=== PATIENT | female | born 1980 | race Two or more races ===

== ENCOUNTER 2024-03-31 23:00 | Inpatient (IN) | payer MEDICAID, SELFPAY ==
[2024-03-31 23:08] VITALS: BP 173/90; PULSE 113; RESP 20; TEMP 37.8; O2SAT 95
[2024-03-31 23:10] VITALS: BMI 34.9
--- NOTE | 2024-03-31 23:13 | XR_ITS ---
Examination: AP chest single view Technique one AP portable upright chest single view Exam date and time: March 31, 2024 11:27 PM Comparison November 02, 2023 Indications: Sepsis protocol Findings: Bibasilar pneumonia Normal heart size Mild vascular congestion Osseous structures intact Impression: Bibasilar pneumonia
--- NOTE | 2024-03-31 23:13 | EDNOTE_ITS ---
ED SOB =RME/HPI General Chief Complaint: Fever Stated Complaint: FEVER/FLU/COLD SYMPTOMS Time Seen by Provider: 03/31/24 23:06 Arrival date/time: 03/31/24 23:00 RME / HPI RME / HPI Narrative: Dr. [facility] Main ED Evaluation: 43yo female with pmhx DM, HTN, asthma BIBA from home presents to the ED for a chief complaint of shortness of breath. Patient states her nephews have been sick at home with the Flu. She states today, she developed significant shortness of breath and felt like she couldn't get enough air in , so she came in for evaluation. She reports associated productive cough with green phlegm, N/V/D, and generalized weakness. She denies any dizziness, lightheadedness or any other associated symptoms. Related Data Home Medications ?Medication ?Instructions ?Recorded ?Confirmed amlodipine 2.5 mg tablet 2.5 mg PO QDAY 08/25/23 08/25/23 sertraline 50 mg tablet 50 mg PO QDAY 08/25/23 08/25/23 Previous Rx's ?Medication ?Instructions ?Recorded famotidine 40 mg tablet (Pepcid) 40 mg PO QDAY #30 tabs 04/07/22 hydrocodone 5 mg-acetaminophen 325 1 tab PO Q8H PRN pain #10 tabs 07/12/22 mg tablet cyclobenzaprine 10 mg tablet 10 mg PO HS PRN muscle spasm #10 10/16/22 tabs albuterol sulfate 90 mcg/actuation 2 puff inhalation Q4H PRN 05/13/23 aerosol inhaler shortness of breath or wheezing #18 grams nebulizer and compressor #1 ea 05/13/23 insulin glargine 100 unit/mL (3 36 unit (0.36 mL) subcut QDAY #15 08/27/23 mL) subcutaneous pen (Basaglar mL KwikPen U-100 Insulin) cephalexin 250 mg capsule 250 mg PO QDAY #5 caps 12/05/23 Allergies Allergy/AdvReac Type Severity Reaction Status Date / Time amoxicillin [From Augmentin] Allergy Severe Swelling Verified 11/02/23 20:23 of Lip/Tongue/Throat clavulanic acid Allergy Severe Swelling Verified 11/02/23 20:23 [From Augmentin] of Lip/Tongue/Throat Review of Systems Review of Systems Systems Reviewed: All systems reviewed, normal except as documented Past Medical History Past Medical History NEUROLOGIC: Negative Neurological Disorders, Cerebrovascular Accident, Transient Ischemic Attacks (TIA), Dementia, Alzheimer's Disease, Parkinson's Disease, Brain Tumor, Meningitis, Seizures, Epilepsy, Multiple Sclerosis, Cerebral Palsy, Amyotrophic Lateral Sclerosis (ALS/Autumn Gehrig's), Guillain-Labolt Syndrome, Spina Bifida, Paralysis, Peripheral Neuropathy, Espino's Palsy, Subdural Hematoma, Migraine, Head Trauma, Spinal Cord Injury or Traumatic Brain Injury CARDIAC: Positive Hypercholesterolemia, Cellulitis, Hypertension and Hypotension; Negative Cardiac Disorders, Myocardial Infarction, Cardiac Arrhythmia, Atrial Fibrillation, Angina, Heart Murmur, Coronary Artery Disease, Atherosclerotic Heart Disease, Peripheral Vascular Disease, Aneurysm, Congestive Heart Failure, Congenital Heart Disease, Valvular Heart Disease, Rheumatic Fever, Cardiomyopathy, Edema, Pericarditis, Deep Vein Thrombosis or Varicose Veins RESPIRATORY: Positive Asthma and Pneumonia; Negative Chronic Obstructive Pulmonary Disease (COPD), Bronchitis, Emphysema, Pulmonary Fibrosis, Cystic Fibrosis, Tuberculosis, Pulmonary Embolism, Pulmonary Edema or Sleep Apnea GASTROINTESTINAL: Negative Gastrointestinal Disorders, Hepatitis, Cirrhosis, Pancreatitis, Celiac Disease, Gall Bladder Disease, Gastrointestinal Bleed, Esophageal Varices, Gastelum's Esophagus, Colitis, Ulcerative Colitis, Diverticulitis, Diverticulosis, Ulcer, Colorectal Cancer, Irritable Bowel, Crohn's Disease, Obstructive Bowel, Hiatal Hernia, Hemorrhoids, Gastroesophageal Reflux Disease or Obesity GENITOURINARY: Negative Genitourinary Disorders, Renal Disease, Kidney Stones, Polycystic Kidney Disease, Neurogenic Bladder, Inguinal Hernia, Dialysis or Prostate Cancer REPRODUCTIVE: Negative Breast Cancer, Endometriosis, Genital Herpes, Gonorrhea, Pelvic Inflammatory Disease, Previous Pregnancies, Syphilis, Testicular Cancer or Uterine Prolapse MUSCULOSKELETAL: Positive Osteomyelitis; Negative Musculoskeletal Disorders, Muscular Dystrophy, Myasthenia Gravis, Marfan's Syndrome, Bone Cancer, Arthritis, Rheumatoid Arthritis, Osteoporosis, Degenerative Disk Disease, Gout, Scoliosis, Carpal Tunnel Syndrome, Fibromyalgia, Fractures, Degenerative Joint Disease or Poliovirus ENT: Positive Blind; Negative Cataracts, Glaucoma, Retinal Detachment, Macular Degeneration, Ear Infection, Deafness, Head Trauma or Eye Prosthesis ENDOCRINE: Positive Endocrine Disorders, Diabetes Mellitus Type 2 and Hypoglycemia; Negative Diabetes Mellitus Type 1, Alecia's Syndrome, Reginald's Disease, Hyperthyroidism, Hypothyroidism, Parathyroid Disease, Pituitary Disease, Systemic Lupus Erythematosus, Syndrome of Inappropriate Antidiuretic Hormone (SIADH), Adrenal Disease or Graves' Disease HEMATOLOGIC: Positive Anemia; Negative Blood Disorders, Leukemia, Hemophilia, Thalassemia, Sickle Cell Disease or Clotting Problems PSYCHO/SOCIAL: Negative Psychiatric Problems, Schizophrenia, Recreational Drug Use, Bipolar Disorder, Depression, Anxiety, Behavior Problems, Self-Mutilation, Attention Deficit Disorder, Attention Deficit Hyperactivity Disorder, Depression, Post Traumatic Stress Disorder or Eating Disorder OTHER HISTORY: Positive Hospitalization, Blood Transfusions and Chicken Pox; Negative Autoimmune Disease, Down Syndrome, Autism, Developmental Delay, Shingles, Falls, Blood Transfusion Reaction, Anesthesia Reactions, Organ Transplant, Chemotherapy, Radiation Therapy, Hyperbaric Therapy, MRSA, VRSA, Vancomycin-Resistant Enterococci, Human Immunodeficiency Virus (HIV), Measles, Mumps, Rubella (Cymraes Measles), Pertussis, Clostridium Difficile, Cancer, Breast Cancer, Cervical Cancer, Colorectal Cancer, Lung Cancer, Ovarian Cancer, Prostate Cancer or Testicular Cancer Family History FAMILY HISTORY: Positive Family Respiratory Disorders and Family Cardiac Disorders; Negative Family Psychiatric Problems, Family Gastrointestinal Problems, Family Cancer, Family Surgery or Family Anesthesia Reaction Surgical History SURGICAL: Positive Abdominal Surgery and Amputation; Negative Cardiac Surgery, Open Heart Surgery, Coronary Artery Bypass Graft, Vascular Surgery, Coronary Stent, Cardiac Catheterization, Pacemaker, Angiogram, Auto Implanted Cardiovert Defib, Carotid Endarterectomy, Endocrine Surgery, Thyroidectomy, Ear Surgery, Tympanostomy Tube, Eye Surgery, Nose Surgery, Oral Surgery, Tonsillectomy, Adenoidectomy, Cochlear Implant, Corneal Transplant, Throat Surgery, Tracheostomy, Gastric Bypass Surgery, Gastrostomy, Bowel Surgery, Nephrectomy, Transurethral Resection, Joint Replacement, Open Reduction Internal Fixation, Arthroscopy, Neurologic Surgery, Brain Shunt, Mastectomy, Lumpectomy, Hysterectomy, Tubal Ligation, Section, Vasectomy or Organ Transplant Social History SMOKING STATUS: Never smoker SECOND HAND EXPOSURE: No SUBSTANCE USE: does not use ED Exam Narrative Physical exam: GENERAL APPEARANCE: alert and oriented x 4, well-developed, well-nourished, mild respiratory distress VITALS: All vitals were reviewed and the pulse ox is 95% on room air, which is normal according to my interpretation. HEENT: Normocephalic, atraumatic; pupils equal, round, reactive to light; EOMI; mucous membranes pink, moist; oropharynx clear NECK: Supple LUNGS: Mild scattered wheezes bilaterally, + rales, + rhonchi HEART: Tachycardic, regular rhythm; normal S1, S2; no murmurs ABDOMEN: non distended; normal BS; soft, no tenderness, no guarding, no rebound; no masses, no organomegaly, no hernia BACK: no CVA tenderness EXTREMITIES: atraumatic; no edema NEUROLOGIC: awake; alert and oriented x4; cranial nerves II-XII grossly intact; no focal sensory or motor deficits PSYCHIATRIC: appropriate mood and affect SKIN: warm, dry, normal color; no rashes Course Course Course Narrative: 2313: Sepsis alert initiated. Orders made at this time are congruent with ED Adult Sepsis Order List. Re-evaluation is to be completed. 0015: On re-evaluation, patient is no longer in respiratory distress, but still has rales and rhonchi at the bilateral bases. 0043: NS IVF infused. 0113: Sepsis reassessment performed consisting of lab review, vitals, physical exam including auscultation of heart, lungs, and visual evaluation of capillary refills, mucosal membranes and extremities. 0130: Patient no longer has rales or rhonchi. Quality Measures Current suspected stage: ruled out Possible source: pulmonary Blood cultures ordered: yes Antibiotic ordered: Yes Pertinent labs: 03/31/24 23:25 Lactic Acid 1.1 mMol/L (0.4-2.0) Procalcitonin 0.25 ng/ml (0.0-0.49) sepsis Orders Category Date Time Status Bedside COVID-19 Antigen Test NOW Care 03/31/24 23:16 Active Bedside Influenza A&B Antigen Test NOW Care 03/31/24 23:16 Completed Senior Procurement Manager STAT Care 03/31/24 23:13 Active Continuous Pulse Oximetry STAT Care 03/31/24 23:13 Active EKG (ED ONLY) *Do not use* NOW Care 03/31/24 23:13 Completed In and Out Catheter X1PRN Care 03/31/24 23:13 Active Insert IV NOW Care 03/31/24 23:13 Active NPO STAT Care 03/31/24 23:13 Active Strict Intake and Output Routine Care 03/31/24 23:13 Ordered EKG (ED Only) Stat Exams 03/31/24 23:13 Ordered XR chest 1V portable Stat Exams 03/31/24 23:13 Completed Arterial Blood Gas Stat Lab 03/31/24 23:41 Completed B-Type Natriuretic Peptide Stat Lab 03/31/24 23:25 Completed Blood Culture (Lab) Stat Lab 03/31/24 23:27 Received CBC Stat Lab 03/31/24 23:25 Completed Comprehensive Metabolic Panel Stat Lab 03/31/24 23:25 Results LDH (Lactate Dehydrogenase) Stat Lab 03/31/24 23:25 Results Lactate (Lactic Acid) Stat Lab 03/31/24 23:25 Completed Lipase Stat Lab 03/31/24 23:25 Results Magnesium Stat Lab 03/31/24 23:25 Results Partial Thromboplastin Time Stat Lab 03/31/24 23:25 Completed Phosphorous Stat Lab 03/31/24 23:25 Results Procalcitonin Stat Lab 03/31/24 23:25 Results Prothrombin Time with INR Stat Lab 03/31/24 23:25 Completed RSV [Respiratory Syncytial Virus Ag] Stat Lab 03/31/24 23:25 Completed Troponin I Stat Lab 03/31/24 23:25 Results Troponin I Stat Lab 04/01/24 01:32 Ordered Urinalysis Stat Lab 04/01/24 01:08 Received Urine Culture Stat Lab 04/01/24 01:08 Received Albuterol/Ipratr Rt Maggie [Duoneb Rt Maggie] Med 03/31/24 23:13 Discontinued 3 ml INH X1 ONE Azithromycin Inj [Zithromax Inj] 500 mg Med 03/31/24 23:15 Discontinued Sodium Chloride 0.9% 250 ml [Ns] 250 ml IV X1 Magnesium Sulfate 1 gm Ivpb [Magnesium Sulfate Ivpb] Med 04/01/24 01:32 Active 1 gm in 100 ml IV X1 MethylPREDNISolone.* [SoluMEDROL Inj] Med 03/31/24 23:13 Discontinued 125 mg IVP X1 ONE Sodium Chloride 0.9% 1000 ml [Ns] 1,434 ml Med 03/31/24 23:13 Discontinued IV 1,434 mls/hr Sodium Chloride 0.9% 250 ml [Ns] 250 ml Med 03/31/24 23:25 Discontinued IV .STK-MED cefTRIAXone/D5w 1gm IV premix [Rocephin/D5w 1gm IV Med 03/31/24 23:15 Discontinued premix] 50 ml IV X1 Oxygen Delivery NOW RT 03/31/24 23:13 Active Vital Signs Vital signs: Vital Signs Temperature 100.0 F 03/31/24 23:08 Pulse Rate 113 H 03/31/24 23:08 Respiratory Rate 20 03/31/24 23:08 Blood Pressure 173/90 H 03/31/24 23:08 Pulse Oximetry (%) 95 03/31/24 23:08 Oxygen Delivery Method Room Air 03/31/24 23:08 Shortness of Breath / Dyspnea Patient data External records reviewed:: [facility] previous records (Per chart review, patient was seen here on 12/05/23 for hyperglycemia, but left AMA.) Clinical information provided by:: patient Social determinants that could affect healthcare access:: none Patient has the following chronic illnesses:: DM, HTN, asthma How is presenting disease/condition affected by chronic disease/condition?: exacerbated by Evaluation data The following diagnostics were reviewed and interpreted by me:: lab results, radiology exam(s) and EKG tracing(s) Lab and/or radiology exams considered but not ordered:: none Interpretation Summary: WBC count is elevated at 18.3, Sodium is slightly low at 132, Creatinine is elevated at 6.1, eGFR is low at 8, Lactic Acid is normal, Procalcitonin is normal, troponin is negative, according to my interpretation. CXR is negative for rib fractures, normal cardiac silhouette, sharp diaphragmatic edge, but shows bilateral patchy lower lobe infiltrates, according to my interpretation. EKG done at 0040, sinus tachycardia, rate of 109, normal axis, no ectopy, no acute ischemia, according to my interpretation. Medications / Prescriptions Medications or Prescriptions considered but not ordered:: none Medication administrations:: Medication Administration History Magnesium Sulfate/Dextrose (Magnesium Sulfate Ivpb) 1 gm in 100 mls @ 100 mls/hr IV X1 ONE Stop: 04/01/24 02:31 Discontinued Medications Albuterol/Ipratropium (Albuterol/Ipratropium (Duoneb) Rt Maggie 3 Ml Nebu) 3 ml INH X1 ONE Stop: 03/31/24 23:14 Last Admin: 03/31/24 23:30 Dose: 3 ml Documented By: MARCELA Sodium Chloride (Ns) 1,434 mls @ 1,434 mls/hr 30 ml/kg infuse over 60 min (1434 ml) IV .Q1H ONE Stop: 04/01/24 00:12 Last Infusion: 04/01/24 00:43 Dose: Infused Documented By: Admin: 03/31/24 23:34 Dose: 1,434 mls/hr Documented By: TC Ceftriaxone Sodium/Dextrose (Rocephin/D5w 1gm Iv Premix) 50 mls @ 100 mls/hr IV X1 ONE Stop: 03/31/24 23:44 Last Infusion: 04/01/24 00:41 Dose: Infused Documented By: Admin: 03/31/24 23:37 Dose: 100 mls/hr Documented By: JACY Azithromycin 500 mg/ Sodium (Chloride) 250 mls @ 250 mls/hr IV X1 ONE Stop: 04/01/24 00:14 Last Infusion: 04/01/24 00:41 Dose: Infused Documented By: Admin: 03/31/24 23:30 Dose: 250 mls/hr Documented By: JACY Sodium Chloride (Ns) Confirm Administered Dose 250 mls @ ud IV .STK-MED ONE Stop: 03/31/24 23:26 Last Admin: 03/31/24 23:44 Dose: Not Given Documented By: JACY Non-Admin Reason: Duplicate Medication on eMAR Methylprednisolone Sodium Succinate (Methylprednisolone Sod Succ 62.5 Mg/Ml 2ml Vial) 125 mg IVP X1 ONE Stop: 03/31/24 23:14 Last Admin: 03/31/24 23:37 Dose: 125 mg Documented By: JACY see above Consultations Consultation(s) initiated? (list below): Yes Consultation #1 (Physician, Specialty, Details): Discussed case with [Dr. Cheney, attending Dr. San] from Hospitalist service regarding admission. Discussed patients ED course, exam findings, labs, and radiology results. The Hospitalist [agrees] to accept the patient for admission. Time: 01:37 Diagnosis Shortness of Breath Differential Diagnosis: community acquired pneumonia, asthma with exacerbation, pulmonary embolism and other (sepsis, COVID, Influenza, URI, dehydration, electrolyte abnormality) Most likely diagnosis given after review of the tests above:: see below Admission Indicated Admission indicated?: indicated Admission Request Was there a request for admission?: Yes Admission Attestation Admission request attestation: Discussed case with [] from Hospitalist service regarding admission. Discussed patients ED course, exam findings, labs, and radiology results. The Hospitalist [agrees,declines] to accept the patient for admission. Disposition Plan Disposition Plan: Admit Critical Care Time Critical Care Time Critical Care Time: Yes Total Critical Care Time (min.): 45 Attestation: The high probability of sudden, clinically significant deterioration in the patient?s condition required the highest level of my preparedness to intervene urgently. The services I provided to this patient were to treat and/or prevent clinically significant deterioration. Services included the following: chart data review, reviewing nursing notes and/or old charts, documentation time, healthcare risk control consultant collaboration regarding findings and treatment options, medication orders and management, direct patient care, vital sign assessments and ordering, interpreting and reviewing diagnostic studies and lab tests. Aggregate critical care time includes only time during which I was engaged in work directly related to the patient?s care, as described above, whether at bedside or elsewhere in the Emergency Department. It did not include time spent performing other reported procedures or the services of residents, students, nurses or physician assistants. Discharge Plan Plan Patient Disposition: Admit Acute Care w/in Hospital Prescriptions/Referrals Prescriptions/Med Rec: No Action famotidine [Pepcid] 40 mg tablet 40 mg PO QDAY Qty: 30 0RF hydrocodone-acetaminophen 5-325 mg tablet 1 tab PO Q8H MDD 10 PRN (Reason: pain) Qty: 10 0RF cyclobenzaprine 10 mg tablet 10 mg PO HS PRN (Reason: muscle spasm) Qty: 10 0RF albuterol sulfate 90 mcg/actuation HFA aerosol inhaler 2 puff inhalation Q4H PRN (Reason: shortness of breath or wheezing) Qty: 18 0RF (DME) nebulizer and compressor Device See Rx Instructions .Route Qty: 1 0RF Rx Instructions: As directed amlodipine 2.5 mg Tablet 2.5 mg PO QDAY sertraline 50 mg Tablet 50 mg PO QDAY insulin glargine [Basaglar KwikPen U-100 Insulin] 100 unit/mL (3 mL) insulin pen 36 unit SUBCUT QDAY Qty: 15 0RF Patient Comments: INJECT 28 UNITS SUBCUTANEOUSLY ONCE A DAY cephalexin 250 mg capsule 250 mg PO QDAY Qty: 5 0RF Problem List Clinical Impression: Sepsis, Pneumonia, Acute renal failure, Hypomagnesemia Patient/Caregiver Discharge Instructions Print Language: Cuban Stand Alone Forms: Hannah Award Info., Patient Portal Info Letter
[2024-03-31 23:16] VITALS: PULSE 109; RESP 19; O2SAT 97
[2024-03-31 23:30] VITALS: BP 179/101; PULSE 104; PULSE 109; PULSE 114; RESP 19; RESP 20; RESP 96; TEMP 37.7; O2SAT 100; O2SAT 94
[2024-03-31] MEDS: AZITHROMYCIN INJ 500 MG in SODIUM CHLORIDE 0.9% 250 ML 250 ML 250 MG IV (23:30)
[2024-03-31] MEDS: ALBUTEROL/IPRATROPIUM (Duoneb) RT SOL 3 ML NEBU INH (23:30)
[2024-03-31] MEDS: SODIUM CHLORIDE 0.9% 1000 ML 1,434 ML 1434 ML IV (23:34)
[2024-03-31] MEDS: MethylPREDNISolone SOD SUCC 62.5 MG/ML 2ML VIAL 125 MG IVP (23:37)
[2024-03-31] MEDS: cefTRIAXone/D5w 1gm IV premix 50 ML IV (23:37)
[2024-03-31 23:38] LABS: Lactate (Lactic Acid) 1.1 mMol/L (0.4-2.0)
[2024-03-31 23:41] LABS: Basophils # (Auto) 0.1 Thou/mm3 (0.0-0.2); Basophils % (Auto) 1 % (0-2.5); Eosinophils # (Auto) 0.3 Thou/mm3 (0.0-0.5); Eosinophils % (Auto) 2 % (0-10); Hematocrit 24.7 % (36.0-46.0); Immature Granulocytes % (Auto) 1 % (0-0); Immature Granulocytes Auto 0.14 Thou/mm3 (0.00-0.00); Lymphocytes # (Auto) 1.3 Thou/mm3 (1.0-4.8); Lymphocytes % (Auto) 7 % (10-50); Mean Corpuscular HGB Conc 32.8 g/dl (31.0-37.0); Mean Corpuscular Hemoglobin 27.9 pg (25.0-35.0); Mean Corpuscular Volume 85 fL (80-100); Monocytes # (Auto) 0.8 Thou/mm3 (0.0-0.8); Monocytes % (Auto) 4 % (0-12); Neutrophils # (Auto) 15.8 Thou/mm3 (1.8-7.7); Neutrophils % (Auto) 86 % (37-80); Nucleated Red Blood Cell % 0 /100 WBC (0); Platelet Count 566 Thou/mm3 (140-440); RDW Standard Deviation 49.2 fL (36.4-46.3); White Blood Count 18.3 Thou/mm3 (3.6-11.0)
[2024-03-31 23:42] LABS: Hemoglobin 8.1 g/dL (12.0-16.0)
[2024-03-31 23:50] LABS: Base Excess -10 (-3-3); HCO3 15 mEq/L (20-26); Inspired O2, VO2 Liters 8 L/min; O2 Saturation 100 % (91-98); PCO2 31 mmHg (32.0-48.0); PO2 171 mmHg (83-108)
[2024-03-31 23:51] LABS: Allen Test Performed/OK; Puncture Site Right Radial
[2024-04-01] VITALS (30 sets, daily range): BP systolic 110–175; BP diastolic 68–104; PULSE 86–106; RESP 12–97; TEMP 36.2–37.6; O2SAT 93–100; BMI 77.0; BMI 34.9
[2024-04-01 00:03] LABS: B-Type Natriuretic Peptide 81 pg/mL (0-100)
[2024-04-01 00:08] LABS: Prothrombin Time 11.2 Seconds (9.0-12.2)
[2024-04-01 00:25] LABS: Alanine Aminotransferase 11 U/L (10-49); Albumin, Serum 4.1 gm/dL (3.5-5.0); Albumin/Globulin Ratio 1.1 (1.2-2.2); Alkaline Phosphatase 104 U/L (46-116); Anion Gap 11 (7-16); Aspartate Amino Transferase 20 U/L (0-34); BUN/Creatinine Ratio 9 Ratio (12-20); Bilirubin,Total 0.3 mg/dL (0.3-1.2); Blood Urea Nitrogen 54 mg/dL (9-23); Calcium 7.7 mg/dL (8.3-10.6); Calcium (Corrected) 7.7 mg/dL (8.5-10.1); Carbon Dioxide 15.4 mMol/L (20.0-31.0); Chloride 106 mMol/L (98-107); Creatinine (Component) 6.1 mg/dL (0.6-1.3); Estimated Creatinine Clearance 11.6 mL/min (>60); Globulin 3.9 gm/dL (2.3-3.5); Glucose 161 mg/dL (74-106); Lipase 59 U/L (12-53); Magnesium 1.4 mg/dL (1.6-2.6); Osmolality,Calculated 282 (275-295); Phosphorous 7.2 mg/dL (2.4-5.1); Potassium 4.8 mMol/L (3.4-5.1); Procalcitonin 0.25 ng/ml (0.0-0.49); Sodium 132 mMol/L (136-145); Troponin I 0.027 ng/mL (0.0-0.045); eGFR 8 See Note
[2024-04-01 00:30] LABS: Respiratory Syncytial Virus Ag Negative (Negative)
[2024-04-01 01:39] LABS: Collection Type, Urine Clean Catch
[2024-04-01 01:52] LABS: Bilirubin,Urine Negative (Negative); Blood,Urine 1+ (Negative); Clarity,Urine Clear (Clear/Hazy); Color,Urine Colorless (Lt Yel-Yel); Glucose, Urine 3+ (Negative); Ketones,Urine Negative (Negative); Leukocyte Esterase,Urine Negative (Negative); Nitrite,Urine Negative (Negative); Protein,Urine 3+ (Neg - Trace); RBC,Urine 2 /hpf (0-3); Specific Gravity,Urine 1.013 (1.001-1.035); Squamous Epithelial Cell,Urine < 1 /hpf (0-5); Urobilinogen,Urine Negative mg/dL (0.0-1.0); WBC,Urine 5 /hpf (0-5)
[2024-04-01] MEDS: Magnesium Sulfate 1 gm Ivpb 1 GM/100 ML BAG IV (01:57)
[2024-04-01 02:17] LABS: LDH (Lactate Dehydrogenase) 422 U/L (120-246)
[2024-04-01 02:21] LABS: Troponin I 0.028 ng/mL (0.0-0.045)
--- NOTE | 2024-04-01 02:27 | ESHP_ITS ---
Documentation for date of: 04/01/24 HPI History of Present Illness History of present illness: 43-year-old female with past medical history of hypertension, uncontrolled insulin-dependent diabetes, status post left AKA, chronic right lower extremity wound ulcer CKD stage V, history of asthma presented to ED with chief complaints of shortness of breath. Per patient her 2 nephews have been sick at home with flu. She stated that today she developed significant shortness of breath, generalized weakness, body ache, productive cough with greenish phlegm, had nausea vomiting and diarrhea leading her to present to ED for further workup. Patient denies any chest pain, palpitation, headache, or any other associated symptoms. The patient was seen in the ED in February with NOEMY on CKD (creatinine 5), but declined hospitalization and left against medical advice. Today on presentation, the patient is hypertensive with a blood pressure of 173/90, tachycardic with a heart rate of 113. Laboratory findings show leukocytosis with a WBC count of 18.3, anemia (hemoglobin 8.1, hematocrit 24.7), and thrombocytosis (platelet count of 566). The CMP reveals significant renal dysfunction, with a bicarbonate level of 15.3, BUN 54, creatinine 6.1, and an eGFR of 8. Electrolyte imbalances are present, with calcium 7.7, phosphorus 7.2, and magnesium 1.4. LDH is elevated at 422. Procalcitonin and lactic acid levels are negative. Urinalysis shows proteinuria and glucosuria. Chest x-ray findings include bibasilar pneumonia and mild vascular congestion. Patient met SIRS criteria tachycardic, leukocytosis with a source of infection and will be admitted for sepsis secondary to pneumonia, acute hypoxic respiratory failure secondary due to asthma exacerbation in the setting of pneumonia as well as CKD stage V progressing to ESRD. #Past medical history as above #Past surgical history left AV KA #Allergies amoxicillin, Augmentin, clavulanic acid #Medication patient states that she is taking 40 units of Lantus daily along with insulin sliding scale, amlodipine 2.5, the rest of the med rec still pending #Social history patient denies alcohol use, but stated that she is smoking methamphetamine, last time was couple days ago. Exam Vital Signs Temp Pulse Resp BP Pulse Ox O2 Del Method O2 Flow Rate 99.7 F 104 H 25 H 135/84 H 96 Nasal Cannula 2 04/01/24 01:42 04/01/24 02:01 04/01/24 02:01 04/01/24 02:01 04/01/24 02:01 04/01/24 02:01 04/01/24 02:01 Narrative Exam GENERAL: no acute distress, AAO x3, well nourished. HEENT: Head AT/ NC. Mucous membranes moist. NECK: Supple, no lymphadenopathy, no carotid bruits. CARDIOVASCULAR: tachicardic,Normal S1/S2, No m/r/g. RESPIRATORY: mild wheezing, No rhonchi or crackles. GASTROINTESTINAL: Abdomen soft, non tender no palpable masses. Bowel sounds present in all 4 quadrants. MUSCULOSKELETAL:?Left lower extremity status post AKA, right lower extremity status post toe amputation well-healed, wound on ball of foot with scant drainage. Trace right lower extremity edema. NEUROLOGICAL: Alert and oriented x3, equal strength upper extremities. PSYCHIATRIC: not agitated, normal mood and affect. Results: Labs 04/01/24 15:50 04/01/24 04:15 Labs: Short CBC 03/31/24 Range/Units 23:25 WBC 18.3 H (3.6-11.0) Thou/mm3 Hgb 8.1 L (12.0-16.0) g/dL Hct 24.7 L (36.0-46.0) % Plt Count 566 H (140-440) Thou/mm3 BMP 03/31/24 23:25 Sodium 132 L Potassium 4.8 Chloride 106 Carbon Dioxide 15.4 L BUN 54 H Creatinine 6.1 H* Glucose 161 H Calcium 7.7 L Cardiac Enzymes 03/31/24 04/01/24 Range/Units 23:25 01:53 Troponin I 0.027 0.028 (0.0-0.045) ng/mL Liver Function 03/31/24 Range/Units 23:25 Total Bilirubin 0.3 (0.3-1.2) mg/dL AST 20 (0-34) U/L ALT 11 (10-49) U/L Alkaline Phosphatase 104 (46-116) U/L Albumin 4.1 (3.5-5.0) gm/dL Urine 04/01/24 Range/Units 01:08 Urine Color Colorless A (Lt Yel-Yel) Urine Clarity Clear (Clear/Hazy) Urine pH 7.0 (5.0-7.0) Ur Specific [place] 1.013 (1.001-1.035) Urine Protein 3+ A (Neg - Trace) Urine Glucose (UA) 3+ A (Negative) ABG Interpretation ABG results: 03/31/24 23:41 ABG pH 7.30 L ABG pCO2 31 L ABG pO2 171 H ABG HCO3 15 L ABG O2 Saturation 100 H ABG Base Excess -10 L Quality Measures Quality Measures sepsis Current suspected stage: sepsis Possible source: pulmonary Blood cultures ordered: yes Antibiotic ordered: Yes Medications Home Medications and Allergies Home Medications ?Medication ?Instructions ?Recorded ?Confirmed ?Type amlodipine 2.5 mg tablet 2.5 mg PO QDAY 08/25/23 08/25/23 History sertraline 50 mg tablet 50 mg PO QDAY 08/25/23 08/25/23 History Allergies Allergy/AdvReac Type Severity Reaction Status Date / Time amoxicillin [From Augmentin] Allergy Severe Swelling Verified 11/02/23 20:23 of Lip/Tongue/Throat clavulanic acid Allergy Severe Swelling Verified 11/02/23 20:23 [From Augmentin] of Lip/Tongue/Throat Visit Medications Acetaminophen (Acetaminophen 325 Mg Tablet) 650 mg PO Q6H PRN PRN Reason: PAIN OR FEVER > 101 Stop: 05/01/24 02:10 Albuterol/Ipratropium (Albuterol/Ipratropium (Duoneb) Rt Maggie 3 Ml Nebu) 3 ml INH Q4HRRT NASREEN Stop: 05/01/24 02:59 Amlodipine Besylate (Amlodipine Besylate 2.5 Mg Tablet) 2.5 mg PO QDAY NASREEN Stop: 05/01/24 08:59 Dextrose (Dextrose 50%-Water Inj 50 Ml Syringe) 25 ml IV Q15MIN PRN PRN Reason: BG 50-70 responsive npo pt Stop: 05/01/24 02:15 Dextrose (Dextrose 50%-Water Inj 50 Ml Syringe) 50 ml IV Q15MIN PRN PRN Reason: BG <50 OR BG <70 & pt unresponsive Stop: 05/01/24 02:15 Glucagon (Glucagon Inj 1 Mg Vial) 1 mg IM Q15MIN PRN PRN Reason: BG <70, and no IV access Heparin Sodium (Porcine) (Heparin Sod Inj 5000 Unit/Ml Vial) 5,000 unit SC Q8HR NASREEN Stop: 04/15/24 05:59 Magnesium Sulfate/Dextrose (Magnesium Sulfate Ivpb) 1 gm in 100 mls @ 100 mls/hr IV X1 ONE Stop: 04/01/24 02:31 Last Admin: 04/01/24 01:57 Dose: 100 mls/hr Ceftriaxone Sodium/Dextrose (Rocephin/D5w 1gm Iv Premix) 50 mls @ 100 mls/hr IV QDAY [facility] Stop: 04/08/24 08:59 Azithromycin 500 mg/ Sodium (Chloride) 250 mls @ 250 mls/hr IV QDAY [facility] Stop: 04/08/24 08:59 Insulin Glargine (Insulin Glargine (Lantus) 5 Unit/0.05 Ml (Per 5 Units)) 30 unit SC QAM [facility] Stop: 05/01/24 08:59 Insulin Human Lispro (Insulin Lispro (Admelog) 1 Unit/0.01 Ml Unit) 0 unit SC ACHS [facility]; Protocol Stop: 05/01/24 07:29 Ondansetron HCl (Ondansetron Inj 2 Mg/Ml Inj 2 Ml) 4 mg IV Q6H PRN; Protocol PRN Reason: NAUSEA OR VOMITING Stop: 05/01/24 02:10 Pantoprazole Sodium (Pantoprazole 40 Mg Tablet) 40 mg PO QDAY [facility] Stop: 05/01/24 08:59 Prednisone (Prednisone 20 Mg Tablet) 40 mg PO QDAY [facility] Stop: 04/08/24 02:23 Sennosides (Senna Tablet) 1 tab PO QDAY [facility]; Protocol Stop: 05/01/24 08:59 Discontinued Medications Albuterol/Ipratropium (Albuterol/Ipratropium (Duoneb) Rt Maggie 3 Ml Nebu) 3 ml INH X1 ONE Stop: 03/31/24 23:14 Last Admin: 03/31/24 23:30 Dose: 3 ml Sodium Chloride (Ns) 1,434 mls @ 1,434 mls/hr 30 ml/kg infuse over 60 min (1434 ml) IV .Q1H ONE Stop: 04/01/24 00:12 Last Infusion: 04/01/24 00:43 Dose: Infused Ceftriaxone Sodium/Dextrose (Rocephin/D5w 1gm Iv Premix) 50 mls @ 100 mls/hr IV X1 ONE Stop: 03/31/24 23:44 Last Infusion: 04/01/24 00:41 Dose: Infused Azithromycin 500 mg/ Sodium (Chloride) 250 mls @ 250 mls/hr IV X1 ONE Stop: 04/01/24 00:14 Last Infusion: 04/01/24 00:41 Dose: Infused Methylprednisolone Sodium Succinate (Methylprednisolone Sod Succ 62.5 Mg/Ml 2ml Vial) 125 mg IVP X1 ONE Stop: 03/31/24 23:14 Last Admin: 03/31/24 23:37 Dose: 125 mg Assessment & Plan Plan 43-year-old female with past medical history of uncontrolled insulin-dependent DM type II, history of hypertension, status post left knee AKA, CKD stage V leading to ESRD was admitted for sepsis secondary due to PNA, acute hypoxic respiratory failure due to asthma exacerbation in the setting of PNA, CKD stage V treatment and management. #Sepsis secondary due to PNA #Acute hypoxic respiratory failure due to asthma exacerbation in the setting of PNA #Asthma exacerbation in the setting of PNA Patient came in with chief complaints of shortness of breath, had recent sick contact with nephew's who are sick with flu, however flu test in ED was negative On presentation patient met 2 out of 4 SIRS criteria, tachycardia and leukocytosis with source of infection PNA Patient endorses generalized body ache, cough, with greenish phlegm production, shortness of breath, patient does not have oxygen at home In ED patient received methylprednisone, DuoNebs treatment, Rocephin with azithromycin, and IVF per sepsis protocol -Admit to telemetry -IVF with antibiotics -Blood culture/urine culture -Continue Rocephin and azithromycin -DuoNeb scheduled -Prednisone 40 mg daily -Monitor signs and symptoms #CKD stage V, progressing to ESRD #NAGMA in the setting of renal failure On presentation patient had patient was acidotic with pH of 7.3, bicarb 15.4, BUN 54, creatinine 6.1, EGFR 8, creatinine clearance 11.6, phosphorus 7.2 Patient is not following any adjunct psychology professor outpatient -Bicarb drip -Nephrology consult -Patient may need initiation of hemodialysis -Stated she makes good amount of urine #Electrolyte disbalance #hyperphosphatemia in the setting of kidney failure #hypocalcemia in a setting of renal failure #Hypomagnesemia -Magnesium was replaced, monitor replace as needed -Sevelamer 800 TID #IDDM type II Home medication long-acting 40 units every morning as well as insulin sliding scale -Lantus 30 units every morning -Insulin sliding scale -Follow-up with A1c -Diabetic education -Patient may require more insulin in the setting of steroid treatment #History of hypertension Currently controlled -Resumed home amlodipine 2.5 #History of right chronic foot ulcer #History of left AKA -Wound care consult -Outpatient volunteer assistant follow-up #abdominal lymphadenopathy CT scan on 12/26 Finding:Abdominal and right pelvic inguinal lymphadenopathy as above, differential would include reactive lymphadenitis versus a lymphoproliferative disorder -Consider PET CT scan follow-up Disposition:tele DVT prophylaxis: heparin GI prophylaxis: PPI Diet: NPO, until nephrology decides if patient need HD , vas cath? Lines: PIV CODE STATUS:DNR Patient care was discussed with attending physician Dr. Mena Man MD PGY-2 I have carefully reviewed this document. Due to imperfections in the voice software, there could be grammatical errors including phonetic/typographic errors. This in no way compromises the medical care the patient is receiving Attending Provider Attestation/Addendum I reviewed labs, imaging, EKG, home medications and prior available records. Face to face evaluation was performed by me. I have personally examined the patient and discussed assessment and plan with the IM team. I reviewed the resident note and agree with the plan with exceptions as below. 43-year-old female with history of CKD stage IV, hypertension, diabetes mellitus complicated by left lower extremity amputation, hyperlipidemia, and asthma, who presented with a chief complaint of shortness of breath and productive cough. She was found to have sepsis secondary to bilateral pneumonia, NOEMY on CKD, and possible asthma exacerbation. Sepsis secondary to bibasilar pneumonia: Start ceftriaxone and azithromycin. Send blood cultures. Trend WBC. NOEMY on CKD stage IV: Her creatinine is critically elevated however no need for emergent hemodialysis at this time. Likely in the setting of diabetic nephropathy and hypertensive nephrosclerosis. Will consult nephrology hold likely start hemodialysis as inpatient. Monitor BMP. Metabolic acidosis: Likely in setting of advanced CKD. Started the patient on bicarb drip. Monitor BMP. Nephrology consulted. Asthma exacerbation: Started the patient on systemic steroids. Start DuoNebs. She received IV magnesium sulfate in the ED.
[2024-04-01] MEDS: ALBUTEROL/IPRATROPIUM (Duoneb) RT SOL 3 ML NEBU INH ×6 (03:00→22:26)
[2024-04-01] MEDS: Sodium Bicarb 8.4% 50ml Vial* 88.23 MEQ in DEXTROSE 5%-WATER 500 ML 75 MEQ IV (03:13)
[2024-04-01 04:45] LABS: Basophils # (Auto) 0.1 Thou/mm3 (0.0-0.2); Basophils % (Auto) 0 % (0-2.5); Eosinophils % (Auto) 0 % (0-10); Hematocrit 20.8 % (36.0-46.0); Immature Granulocytes % (Auto) 1 % (0-0); Immature Granulocytes Auto 0.23 Thou/mm3 (0.00-0.00); Lymphocytes # (Auto) 0.8 Thou/mm3 (1.0-4.8); Lymphocytes % (Auto) 3 % (10-50); Mean Corpuscular HGB Conc 32.2 g/dl (31.0-37.0); Mean Corpuscular Hemoglobin 27.6 pg (25.0-35.0); Mean Corpuscular Volume 86 fL (80-100); Monocytes # (Auto) 0.3 Thou/mm3 (0.0-0.8); Monocytes % (Auto) 1 % (0-12); Neutrophils # (Auto) 21.2 Thou/mm3 (1.8-7.7); Neutrophils % (Auto) 94 % (37-80); Nucleated Red Blood Cell % 0 /100 WBC (0); Platelet Count 476 Thou/mm3 (140-440); RDW Standard Deviation 50.2 fL (36.4-46.3); Red Blood Count 2.43 Miln/mm3 (4.00-5.20); White Blood Count 22.6 Thou/mm3 (3.6-11.0)
[2024-04-01 04:51] LABS: Hemoglobin 6.7 g/dL (12.0-16.0)
[2024-04-01 05:15] LABS: Glucose Estimated Average 148 mg/dL (80-131); Hemoglobin A1C 6.8 % Hgb (4.8-6.0)
[2024-04-01 05:17] LABS: Path Review Blood Smear Sent to Pathologist
[2024-04-01 05:32] LABS: Albumin, Serum 3.5 gm/dL (3.5-5.0); Alkaline Phosphatase 88 U/L (46-116); Aspartate Amino Transferase 14 U/L (0-34); Bilirubin,Total 0.2 mg/dL (0.3-1.2); Calcium (Corrected) 7.2 mg/dL (8.5-10.1); Cardiac Risk Estimate 4.7 RATIO (3.7-5.6); Cholesterol 197 mg/dL (132-200); Creatinine (Component) 6.1 mg/dL (0.6-1.3); Globulin 3.5 gm/dL (2.3-3.5); Glucose 235 mg/dL (74-106); HDL Cholesterol 42 mg/dL (40-60); LDL Cholesterol,Calculated 131 mg/dL (0-130); Magnesium 1.6 mg/dL (1.6-2.6); Thyroid Stimulating Hormone 1.52 uIU/mL (0.55-4.78); Triglycerides 118 mg/dL (30-150); eGFR 8 See Note
[2024-04-01] MEDS: INSULIN LISPRO (AdmeLOG) 1 UNIT/0.01 ML UNIT SC ×4 (05:47→20:42)
[2024-04-01 06:03] LABS: Alanine Aminotransferase 9 U/L (10-49); Anion Gap 11 (7-16); BUN/Creatinine Ratio 8 Ratio (12-20); Blood Urea Nitrogen 50 mg/dL (9-23); Chloride 107 mMol/L (98-107); Osmolality,Calculated 287 (275-295); Potassium 4.4 mMol/L (3.4-5.1); Sodium 133 mMol/L (136-145)
[2024-04-01 06:28] LABS: Hematocrit 20.5 % (36.0-46.0)
[2024-04-01 06:33] LABS: Hemoglobin 6.7 g/dL (12.0-16.0)
[2024-04-01 06:45] LABS: Calcium 6.8 mg/dL (8.3-10.6); Carbon Dioxide 14.7 mMol/L (20.0-31.0); Estimated Creatinine Clearance 19.1 mL/min (>60)
[2024-04-01] MEDS: amLODIPine BESYLATE 2.5 MG TABLET PO (08:10)
[2024-04-01] MEDS: SEVELAMER CARBONATE 800 MG TABLET PO ×3 (08:10→18:41)
[2024-04-01] MEDS: predniSONE 20 MG TABLET 40 MG PO (08:12)
[2024-04-01] MEDS: SENNA TABLET 1 TAB PO (08:12)
[2024-04-01] MEDS: PANTOPRAZOLE 40 MG TABLET PO (08:13)
[2024-04-01] MEDS: INSULIN GLARGINE (Lantus) 5 UNIT/0.05 ML (PER 5 UNITS) 30 UNIT SC (08:22)
[2024-04-01 09:29] LABS: Base Excess -10 (-3-3); HCO3 16 mEq/L (20-26); O2 Saturation 98 % (91-98); PCO2 31 mmHg (32.0-48.0); PO2 98 mmHg (83-108); pH, Arterial 7.31 (7.35-7.45)
[2024-04-01 09:31] LABS: Allen Test Performed/OK; Inspired O2, VO2 Liters 1 L/min; Puncture Site Right Radial
--- NOTE | 2024-04-01 10:53 | PC.SS ---
Initial assessment: This is 43 year old female admitted for [facility]. Patient appeared alert and oriented. Patient confirmed demographic information. Patient informs she lives at home with her sister, Gisella Ahuja. Patient's sister Gisella, was identified as the patient's alternate medical surrogate decision maker. Patient describes to be independent with ADL's. Patient denies DME use at home, although she has a wheelchair at home. Patient denies oxygen use at home, no preferred DME if O2 needed at time of discharge. Patient's PCP is Dr. Khadijah Veronica. Pharmacy of choice is [facility] in [place]. The discharge plan was discussed, and the patient would like to return home once medically cleared. Patient's family to assist with transportation home. patient financial services coordinator to remain available to address further needs. D/c plan: home Next of kin: sisterGisella
--- NOTE | 2024-04-01 13:07 | PD.RESPRO ---
Documentation for date of: 04/01/24 Exam Vital Signs Temp Pulse Resp BP Pulse Ox O2 Del Method O2 Flow Rate 98.1 F 96 20 169/104 H 98 Nasal Cannula 1 04/01/24 12:25 04/01/24 12:25 04/01/24 12:25 04/01/24 12:25 04/01/24 12:25 04/01/24 08:00 04/01/24 12:25 Objective Labs 04/02/24 05:14 04/02/24 07:30 Labs: Laboratory Results - last 24 hr 03/31/24 03/31/24 04/01/24 23:25 23:41 01:08 WBC 18.3 H RBC 2.90 L Hgb 8.1 L Hct 24.7 L MCV 85 MCH 27.9 MCHC 32.8 RDW Std Deviation 49.2 H Plt Count 566 H Neut % (Auto) 86 H Lymph % (Auto) 7 L Bennett % (Auto) 4 Eos % (Auto) 2 Baso % (Auto) 1 Neut # (Auto) 15.8 H Lymph # (Auto) 1.3 Bennett # (Auto) 0.8 Eos # (Auto) 0.3 Baso # (Auto) 0.1 Immature Gran # (Auto) 0.14 H Absolute Nucleated RBC 0.00 Immature Gran % 1 H Nucleated RBC % 0 Smear Path Review PT 11.2 INR 1.0 APTT 31.0 Puncture Site Right Radial ABG pH 7.30 L ABG pCO2 31 L ABG pO2 171 H ABG HCO3 15 L ABG O2 Saturation 100 H ABG Base Excess -10 L Oxygen Liter Flow 8 Sodium 132 L Potassium 4.8 Chloride 106 Carbon Dioxide 15.4 L Anion Gap 11 BUN 54 H Creatinine 6.1 H* Estim Creat Clear Calc 11.6 L eGFR 8 L* BUN/Creatinine Ratio 9 L Glucose [address] Glu mg/dL Hemoglobin A1c Calculated Osmolality 282 Lactic Acid 1.1 Calcium 7.7 L Corrected Calcium 7.7 L Phosphorus 7.2 H Magnesium 1.4 L Total Bilirubin 0.3 AST 20 ALT 11 Alkaline Phosphatase 104 Lactate Dehydrogenase 422 H Troponin I 0.027 B-Natriuretic Peptide 81 Total Protein 8.0 Albumin 4.1 Globulin 3.9 H Albumin/Globulin Ratio 1.1 L Triglycerides Cholesterol LDL Cholesterol, Calc HDL Cholesterol Cholesterol/HDL Ratio Lipase 59 H Procalcitonin 0.25 TSH Ur Collection Type Clean Catch Urine Color Colorless A Urine Clarity Clear Urine pH 7.0 Ur Specific Bliss 1.013 Urine Protein 3+ A Urine Glucose (UA) 3+ A Urine Ketones Negative Urine Blood 1+ A Urine Nitrite Negative Urine Bilirubin Negative Urine Urobilinogen (Auto) Negative Ur Leukocyte Esterase Negative Urine RBC 2 Urine WBC 5 Ur Squamous Epith Cells < 1 Urine Bacteria None RSV Rapid Negative Blood Type Antibody Screen Crossmatch Blood Bank Wristband ID 04/01/24 04/01/24 04/01/24 01:53 04:15 05:45 WBC 22.6 H RBC 2.43 L Hgb 6.7 L* 6.7 L* Hct 20.8 L* 20.5 L* MCV 86 MCH 27.6 MCHC 32.2 RDW Std Deviation 50.2 H Plt Count 476 H D Neut % (Auto) 94 H Lymph % (Auto) 3 L Bennett % (Auto) 1 Eos % (Auto) 0 Baso % (Auto) 0 Neut # (Auto) 21.2 H Lymph # (Auto) 0.8 L Bennett # (Auto) 0.3 Eos # (Auto) 0.0 Baso # (Auto) 0.1 Immature Gran # (Auto) 0.23 H Absolute Nucleated RBC 0.00 Immature Gran % 1 H Nucleated RBC % 0 Smear Path Review Sent to Pathologist PT INR APTT Puncture Site ABG pH ABG pCO2 ABG pO2 ABG HCO3 ABG O2 Saturation ABG Base Excess Oxygen Liter Flow Sodium 133 L Potassium 4.4 Chloride 107 Carbon Dioxide 14.7 L* Anion Gap 11 BUN 50 H Creatinine 6.1 H* Estim Creat Clear Calc 19.1 L eGFR 8 L* BUN/Creatinine Ratio 8 L Glucose [address] Glu mg/dL 148 H Hemoglobin A1c 6.8 H Calculated Osmolality 287 Lactic Acid Calcium 6.8 L* Corrected Calcium 7.2 L Phosphorus Magnesium 1.6 Total Bilirubin 0.2 L AST 14 ALT 9 L Alkaline Phosphatase 88 Lactate Dehydrogenase Troponin I 0.028 B-Natriuretic Peptide Total Protein 7.0 Albumin 3.5 D Globulin 3.5 Albumin/Globulin Ratio 1.0 L Triglycerides 118 Cholesterol 197 LDL Cholesterol, Calc 131 H HDL Cholesterol 42 Cholesterol/HDL Ratio 4.7 Lipase Procalcitonin TSH 1.52 Ur Collection Type Urine Color Urine Clarity Urine pH Ur Specific Bliss Urine Protein Urine Glucose (UA) Urine Ketones Urine Blood Urine Nitrite Urine Bilirubin Urine Urobilinogen (Auto) Ur Leukocyte Esterase Urine RBC Urine WBC Ur Squamous Epith Cells Urine Bacteria RSV Rapid Blood Type O Positive Antibody Screen NEGATIVE Crossmatch See Detail Blood Bank Wristband ID Yes 04/01/24 09:24 WBC RBC Hgb Hct MCV MCH MCHC RDW Std Deviation Plt Count Neut % (Auto) Lymph % (Auto) Bennett % (Auto) Eos % (Auto) Baso % (Auto) Neut # (Auto) Lymph # (Auto) Bennett # (Auto) Eos # (Auto) Baso # (Auto) Immature Gran # (Auto) Absolute Nucleated RBC Immature Gran % Nucleated RBC % Smear Path Review PT INR APTT Puncture Site Right Radial ABG pH 7.31 L ABG pCO2 31 L ABG pO2 98 D ABG HCO3 16 L ABG O2 Saturation 98 ABG Base Excess -10 L Oxygen Liter Flow 1 Sodium Potassium Chloride Carbon Dioxide Anion Gap BUN Creatinine Estim Creat Clear Calc eGFR BUN/Creatinine Ratio Glucose Estimated Ave Glu mg/dL Hemoglobin A1c Calculated Osmolality Lactic Acid Calcium Corrected Calcium Phosphorus Magnesium Total Bilirubin AST ALT Alkaline Phosphatase Lactate Dehydrogenase Troponin I B-Natriuretic Peptide Total Protein Albumin Globulin Albumin/Globulin Ratio Triglycerides Cholesterol LDL Cholesterol, Calc HDL Cholesterol Cholesterol/HDL Ratio Lipase Procalcitonin TSH Ur Collection Type Urine Color Urine Clarity Urine pH Ur Specific Bliss Urine Protein Urine Glucose (UA) Urine Ketones Urine Blood Urine Nitrite Urine Bilirubin Urine Urobilinogen (Auto) Ur Leukocyte Esterase Urine RBC Urine WBC Ur Squamous Epith Cells Urine Bacteria RSV Rapid Blood Type Antibody Screen Crossmatch Blood Bank Wristband ID ABG Interpretation ABG results: 03/31/24 04/01/24 23:41 09:24 ABG pH 7.30 L 7.31 L ABG pCO2 31 L 31 L ABG pO2 171 H 98 D ABG HCO3 15 L 16 L ABG O2 Saturation 100 H 98 ABG Base Excess -10 L -10 L Quality Measures Quality Measures sepsis Current suspected stage: sepsis Possible source: pulmonary Blood cultures ordered: yes Antibiotic ordered: Yes Assessment & Plan Assessment Current Active Medications: Generic Name Dose Route Start Last Admin Trade Name Freq PRN Reason Stop Dose Admin Acetaminophen 650 mg 04/01/24 02:11 Acetaminophen 325 Mg Tablet PO 05/01/24 02:10 Q6H PRN PAIN OR FEVER > 101 Albuterol/Ipratropium 3 ml 04/01/24 03:00 04/01/24 10:53 Albuterol/Ipratropium (Duoneb) Rt Maggie 3 Ml Nebu INH 05/01/24 02:59 3 ml Q4HRRT NASREEN Administration Amlodipine Besylate 2.5 mg 04/01/24 09:00 04/01/24 08:10 Amlodipine Besylate 2.5 Mg Tablet PO 05/01/24 08:59 2.5 mg QDAY NASREEN Administration Azithromycin 500 mg 04/01/24 21:00 Azithromycin 250 Mg Tablet PO 04/08/24 20:59 QPM REPLACED BY [facility] Protocol Dextrose 25 ml 04/01/24 02:16 Dextrose 50%-Water Inj 50 Ml Syringe IV 05/01/24 02:15 Q15MIN PRN BG 50-70 responsive npo pt Dextrose 50 ml 04/01/24 02:16 Dextrose 50%-Water Inj 50 Ml Syringe IV 05/01/24 02:15 Q15MIN PRN BG <50 OR BG <70 & pt unresponsive Glucagon 1 mg 04/01/24 02:16 Glucagon Inj 1 Mg Vial IM Q15MIN PRN BG <70, and no IV access Heparin Sodium (Porcine) 5,000 unit 04/01/24 06:00 04/01/24 05:39 Heparin Sod Inj 5000 Unit/Ml Vial SC 04/15/24 05:59 Not Given Q8HR REPLACED BY [facility] Ceftriaxone Sodium/Dextrose 50 mls @ 100 mls/hr 04/01/24 21:00 Rocephin/D5w 1gm Iv Premix IV 04/08/24 20:59 QPM REPLACED BY [facility] Insulin Glargine 30 unit 04/01/24 09:00 04/01/24 08:22 Insulin Glargine (Lantus) 5 Unit/0.05 Ml (Per 5 Units) SC 05/01/24 08:59 30 unit QAM NASREEN Administration Insulin Human Lispro 0 unit 04/01/24 06:00 04/01/24 12:59 Insulin Lispro (Admelog) 1 Unit/0.01 Ml Unit SC 05/01/24 05:59 3 unit Q6HR NASREEN Administration Protocol Ondansetron HCl 4 mg 04/01/24 02:11 Ondansetron Inj 2 Mg/Ml Inj 2 Ml IV 05/01/24 02:10 Q6H PRN NAUSEA OR VOMITING Protocol Pantoprazole Sodium 40 mg 04/01/24 09:00 04/01/24 08:13 Pantoprazole 40 Mg Tablet PO 05/01/24 08:59 40 mg QDAY NASREEN Administration Prednisone 40 mg 04/01/24 09:00 04/01/24 08:12 Prednisone 20 Mg Tablet PO 04/08/24 02:23 40 mg QDAY NASREEN Administration Sennosides 1 tab 04/01/24 09:00 04/01/24 08:12 Senna Tablet PO 05/01/24 08:59 1 tab QDAY NASREEN Administration Protocol Sevelamer Carbonate 800 mg 04/01/24 08:00 04/01/24 12:59 Sevelamer Carbonate 800 Mg Tablet PO 05/01/24 07:59 800 mg TIDWM NASREEN Administration Plan Ms. Bajwa is a 43-year-old female with past medical history significant for insulin-dependent DM type II, history of hypertension, hyperlipidemia, asthma s/p left knee AKA, CKD stage V leading to ESRD was admitted for sepsis secondary due to PNA, acute hypoxic respiratory failure due to asthma exacerbation in the setting of PNA, CKD stage V treatment and management. #Sepsis secondary due to PNA #Acute hypoxic respiratory failure due to asthma exacerbation in the setting of PNA #Asthma exacerbation in the setting of PNA ?Patient came in with chief complaints of shortness of breath, had recent sick contact with nephew's who are sick with flu -RSV negative ?On presentation patient met 2 out of 4 SIRS criteria, tachycardia and leukocytosis with source of infection PNA ?Patient endorses generalized body ache, cough, with greenish phlegm production, shortness of breath, patient does not have oxygen at home ?In ED patient received methylprednisone, DuoNebs treatment, Rocephin with azithromycin, and IVF per sepsis protocol Plan -Admit to telemetry -IVF with antibiotics -Blood culture/urine culture?pending -Rocephin 1 g daily 04/01/2024- -azithromycin 500 Mg daily 04/01/2024- -DuoNeb scheduled -Prednisone 40 mg daily -Monitor signs and symptoms -Monitor glucose closely as patient is diabetic #CKD stage V, progressing to ESRD #Non-anion ion gap metabolic acidosis in the setting of #Renal failure ?On presentation patient had patient's pH of 7.3, bicarb 15.4, BUN 54, creatinine 6.1, EGFR 8, creatinine clearance 11.6, phosphorus 7.2 -Patient is not following any bag washer outpatient -Patient makes urine, currently Derick is in Plan: -Pretty jennings -Nephrology consult-Dr. Jimenez on the case -Consulted ICU team for vas cath placement -Plan for inpatient dialysis -Stated she makes good amount of urine #Electrolyte disbalance #hyperphosphatemia in the setting of kidney failure #hypocalcemia in a setting of renal failure #Hypomagnesemia -Magnesium was replaced, monitor replace as needed -Sevelamer 800 TID -Monitor daily CMP #IDDM type II -On admission blood glucose 235 -Hemoglobin A1c 6.8 on 04/01/2024 Plan: -Home medication long-acting 40 units every morning as well as insulin sliding scale -Lantus 30 units every morning -Insulin sliding scale -Follow-up with A1c -Diabetic education -Patient may require more insulin in the setting of steroid treatment #History of hypertension -Currently controlled -Resumed home amlodipine 2.5 #History of right chronic foot ulcer #History of left AKA -Wound care consult -Outpatient chief nuclear medicine technologist follow-up #abdominal lymphadenopathy -CT scan on 12/26 -Finding:Abdominal and right pelvic inguinal lymphadenopathy as above, differential would include reactive lymphadenitis versus a lymphoproliferative disorder -Consider PET CT scan follow-up Disposition:tele DVT prophylaxis: heparin 5000 unit SC every 8 hours GI prophylaxis: Pantoprazole 40 p.o. daily Diet: NPO for vas cath CODE STATUS:DNR/DNI Assessment and plan discussed with my attending physician Dr. Maria Dolores Daniel (PGY-1)- Internal medicine resident Attending Provider Attestation/Addendum Case discussed with the internal medicine resident. Vas-Cath is being inserted by ICU attending this afternoon. Continue close monitoring. Continue treatment for sepsis secondary to pneumonia.. Control blood glucose. Check electrolytes. Monitor for worsening fluid overload and hypoxia.
[2024-04-01 14:51] LABS: Hepatitis A Antibody IgM Non Reactive (Non React); Hepatitis B Core Antibody IgM Non Reactive (Non React); Hepatitis B Surface Ab NonReact(Not Immune) (Immune); Hepatitis B Surface Antigen Non Reactive (Non React); Hepatitis C Antibody Non Reactive (Non React)
--- NOTE | 2024-04-01 15:40 | PD.RESPROC ---
Procedures Procedure Date / Time 04/01/24 1540 Procedure Narrative Procedure Narrative: Attending Attestation: I was present and performed the procedure with the above resident. Hematoma at the site of left IJ. Otherwise well tolerated procedure. Central Line Placement Right Femoral: Indication(s): other (Temporary Dialysis Catheter) Informed consent obtained: from patient Time out done, and the following verified: correct patient, side and site, procedure, patient position and implants and/or equipment Patient placed on monitor/pulse ox: Yes Hand Hygiene: scrub, soap & water and alcohol-based hand rub Max Sterile Barrier Techniques used: cap, mask, sterile gown, sterile gloves and sterile full body drape Central line prep: Chlorhexidine scrub and sterile drapes applied Local anesthesia used: lidocaine 1% Amount of anesthesia used (mL): 5 Ultrasound used for placement: Yes Sterile Technique if Ultrasound used, including sterile gel: yes Central line lumen inserted: triple Post procedure: sutured in place, good blood return, all ports aspirated, flushed, capped and sterile dressing applied Patient tolerated procedure: well EBL(ml): 15 Complications: hematoma at puncture site Procedure comment: A time out was performed. Hands were washed immediately prior to the procedure. We wore a surgical cap, mask, full gown and sterile gloves throughout the procedure. Right Groin region was prepped using chlorhexidine scrub and draped in sterile fashion using a full drape and sterile probe cover and sterile gel employed. The Femoral vein was identified using the ultrasound. Anesthesia was achieved over the vein using 1% lidocaine. Using real-time out of plane guidance, the introducer needle was inserted into the Femoral vein under direct ultrasound visualization. Venous blood was withdrawn. The syringe was removed and a guidewire was advanced into the introducer needle. The guidewire was visualized in the Femoral vein by ultrasound. A small incision was made at the skin surface with a scalpel and the introducer needle was exchanged for a dilator over the guidewire. After appropriate dilation was obtained, the dilator was exchanged over the wire for a triple lumen central venous catheter. A sterile sorbaview shield was placed over the catheter at the insertion site. The patient tolerated the procedure without any hemodynamic compromise. At time of procedure completion, all ports aspirated and flushed properly. Estimated blood loss is about 15 cc. Attempt was made at the left chest region to insert triple-lumen catheter in the left internal jugular, but patient developed hematoma at the puncture site, hence procedure was performed in the right femoral vein in the right groin region.
[2024-04-01 16:05] LABS: Hematocrit 23.2 % (36.0-46.0)
[2024-04-01] MEDS: HYDROcodone/APAP 5/325 TABLET 1 TAB PO (16:30)
--- NOTE | 2024-04-01 16:51 | PC.NURSE ---
Another Number for pt sister Gisella [phone]
--- NOTE | 2024-04-01 16:52 | PC.NURSE ---
pt family supposed to bring in Home medications
[2024-04-01 17:01] LABS: Hemoglobin 7.5 g/dL (12.0-16.0)
[2024-04-01] MEDS: EPOETIN ALFA-EPBX INJ 10,000 UNIT/ML VIAL (NON-ESRD) 10000 UNIT SC (17:08)
--- NOTE | 2024-04-01 18:06 | PC.NURSE ---
1st dialysis completed for 2 hrs, tolerated well. Pt awake/alert. Respiration even and unlabored, sating at 95% RA. Able to removed 500 ml of fluid net. Post tx BP 144/83, HR 87, Temp 97.7. Pt back in her room. Call light within reached. Report given to Rivka ROMERO
--- NOTE | 2024-04-01 18:10 | PC.NURSE ---
pt back on floor, dressing intact vitals BP144/80 HR 96 Temp 97.8 O2 95% on RA
[2024-04-01] MEDS: AZITHROMYCIN 250 MG TABLET 500 MG PO (20:19)
[2024-04-01] MEDS: cefTRIAXone/D5w 1gm IV premix 50 ML IV (20:19)
--- NOTE | 2024-04-01 20:40 | PC.NURSE ---
MD Robert Vogt made aware of hgb 7.5, was hgb 6.7 prior but pt received 1 U PRBC, pt is on Heparin for VTE prophylaxis per MD gilmore to administer Heparin.
[2024-04-01] MEDS: HEPARIN SOD INJ 5000 UNIT/ML VIAL SC (21:04)
[2024-04-02] VITALS (24 sets, daily range): BP systolic 143–221; BP diastolic 82–113; PULSE 94–113; RESP 14–96; TEMP 35.9–36.8; O2SAT 93–100; BMI 35.0
[2024-04-02] MEDS: HYDROcodone/APAP 5/325 TABLET 1 TAB PO (01:25)
[2024-04-02] MEDS: ALBUTEROL/IPRATROPIUM (Duoneb) RT SOL 3 ML NEBU INH ×2 (03:18→06:18)
[2024-04-02] MEDS: HEPARIN SOD INJ 5000 UNIT/ML VIAL SC ×2 (05:02→20:53)
[2024-04-02] MEDS: INSULIN LISPRO (AdmeLOG) 1 UNIT/0.01 ML UNIT 6 UNIT SC (05:37)
[2024-04-02 05:59] LABS: Basophils % (Auto) 0 % (0-2.5); Eosinophils % (Auto) 0 % (0-10); Hematocrit 23.1 % (36.0-46.0); Immature Granulocytes % (Auto) 1 % (0-0); Lymphocytes # (Auto) 1.3 Thou/mm3 (1.0-4.8); Lymphocytes % (Auto) 6 % (10-50); Mean Corpuscular HGB Conc 33.3 g/dl (31.0-37.0); Mean Corpuscular Hemoglobin 28.3 pg (25.0-35.0); Mean Corpuscular Volume 85 fL (80-100); Monocytes # (Auto) 0.9 Thou/mm3 (0.0-0.8); Monocytes % (Auto) 4 % (0-12); Neutrophils # (Auto) 20.6 Thou/mm3 (1.8-7.7); Neutrophils % (Auto) 89 % (37-80); Nucleated Red Blood Cell % 0 /100 WBC (0); Platelet Count 442 Thou/mm3 (140-440); RDW Standard Deviation 47.3 fL (36.4-46.3); Red Blood Count 2.72 Miln/mm3 (4.00-5.20); White Blood Count 23.2 Thou/mm3 (3.6-11.0)
[2024-04-02 06:02] LABS: Hemoglobin 7.7 g/dL (12.0-16.0)
[2024-04-02] MEDS: predniSONE 20 MG TABLET 40 MG PO (07:55)
[2024-04-02] MEDS: SEVELAMER CARBONATE 800 MG TABLET PO ×3 (07:55→18:05)
[2024-04-02] MEDS: INSULIN GLARGINE (Lantus) 5 UNIT/0.05 ML (PER 5 UNITS) 30 UNIT SC (07:55)
[2024-04-02] MEDS: PANTOPRAZOLE 40 MG TABLET PO (07:55)
[2024-04-02] MEDS: SENNA TABLET 1 TAB PO (07:56)
[2024-04-02] MEDS: amLODIPine BESYLATE 2.5 MG TABLET PO (07:56)
[2024-04-02] MEDS: INSULIN LISPRO (AdmeLOG) 1 UNIT/0.01 ML UNIT SC ×3 (07:58→20:50)
[2024-04-02 09:05] LABS: Alanine Aminotransferase 8 U/L (10-49); Alkaline Phosphatase 92 U/L (46-116); Anion Gap 11 (7-16); Aspartate Amino Transferase < 10 U/L (0-34); BUN/Creatinine Ratio 10 Ratio (12-20); Bilirubin,Total 0.2 mg/dL (0.3-1.2); Blood Urea Nitrogen 57 mg/dL (9-23); Calcium 7.6 mg/dL (8.3-10.6); Calcium (Corrected) 8.4 mg/dL (8.5-10.1); Chloride 102 mMol/L (98-107); Creatine Kinase 203 U/L (34-171); Creatinine (Component) 5.5 mg/dL (0.6-1.3); Estimated Creatinine Clearance 12.9 mL/min (>60); Globulin 3.1 gm/dL (2.3-3.5); Magnesium 1.8 mg/dL (1.6-2.6); Osmolality,Calculated 299 (275-295); Phosphorous 7.4 mg/dL (2.4-5.1); Potassium 4.1 mMol/L (3.4-5.1); Sodium 133 mMol/L (136-145); Total Protein 6.1 gm/dL (5.7-8.2); eGFR 9 See Note
[2024-04-02 09:08] LABS: Glucose 410 mg/dL (74-106)
--- NOTE | 2024-04-02 11:09 | PC.NURSE ---
2nd dialysis completed for 2.5 hrs, tolerated well. Pt no complaints. Respiration even and unlabored. Saturating at 95% RA. Able to removed 1200 ml of fluid net. Post tx BP 175/91, HR 97, Temp 96.8. Pt back in her room. Call light within reached. Report given to Nilam ROMERO
[2024-04-02] MEDS: INSULIN GLARGINE (Lantus) 5 UNIT/0.05 ML (PER 5 UNITS) 10 UNIT SC (11:55)
[2024-04-02] MEDS: ONDANSETRON INJ 2 MG/ML INJ 2 ML 4 MG IV ×2 (12:03→21:20)
--- NOTE | 2024-04-02 14:10 | ESPR_ITS ---
Documentation for date of: 04/02/24 Subjective Subjective Interval history: Patient was seen during hemodialysis today. Patient's blood sugar has been uncontrolled overnight being in the 400s. She got 6 units lispro overnight and her insulin regimen was changed changed to glargine 40 units a.m. and sliding scale was changed to a resistant. Decreased prednisone to 20mg qday. She was tolerating hemodialysis well and had no other complaints at this time. 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 Nose: No nasal discharge. Mouth/Throat: Dry mucous membranes, poor dentation no redness, no lesions. Neck: Neck supple, non-tender, no cervical lymphadenopathy. Lungs: Clear RONALD to auscultation and percussion, No accessory muscle use. Cardio: Normal S1/S2, regular rhythm, no murmurs, no JVD Abdomen: Soft, non-tender, no palpable masses, peristalsis present, no guarding or rebound. Extremities L LE AKA, no peripheral edema , non-tender, peripheral pulses present R LE. Skin: No rashes, no lesions, warm to touch. Neuro: No focal neurological deficits. motor and sensory intact Psych: Cooperative, appropriate mood and effect. Objective Labs 04/02/24 05:14 04/02/24 07:30 Labs: Laboratory Results - last 24 hr 04/01/24 04/01/24 04/02/24 05:45 15:50 05:14 WBC 23.2 H RBC 2.72 L Hgb 7.5 L 7.7 L Hct 23.2 L 23.1 L MCV 85 MCH 28.3 MCHC 33.3 RDW Std Deviation 47.3 H Plt Count 442 H D Neut % (Auto) 89 H Lymph % (Auto) 6 L [place] % (Auto) 4 Eos % (Auto) 0 Baso % (Auto) 0 Neut # (Auto) 20.6 H Lymph # (Auto) 1.3 [place] # (Auto) 0.9 H Eos # (Auto) 0.0 Baso # (Auto) 0.0 Immature Gran # (Auto) 0.30 H Absolute Nucleated RBC 0.00 Immature Gran % 1 H Nucleated RBC % 0 Sodium Potassium Chloride Carbon Dioxide Anion Gap BUN Creatinine Estim Creat Clear Calc eGFR BUN/Creatinine Ratio Glucose Calculated Osmolality Calcium Corrected Calcium Phosphorus Magnesium Total Bilirubin AST ALT Alkaline Phosphatase Total Creatine Kinase Total Protein Albumin Globulin Albumin/Globulin Ratio Hepatitis A IgM Ab Non Reactive Hep Bs Antigen Non Reactive Hep Bs Antibody NonReact(Not Immune) L Hep B Core IgM Ab Non Reactive Hepatitis C Antibody Non Reactive 04/02/24 07:30 WBC RBC Hgb Hct MCV MCH MCHC RDW Std Deviation Plt Count Neut % (Auto) Lymph % (Auto) [place] % (Auto) Eos % (Auto) Baso % (Auto) Neut # (Auto) Lymph # (Auto) [place] # (Auto) Eos # (Auto) Baso # (Auto) Immature Gran # (Auto) Absolute Nucleated RBC Immature Gran % Nucleated RBC % Sodium 133 L Potassium 4.1 Chloride 102 Carbon Dioxide 20.0 Anion Gap 11 BUN 57 H Creatinine 5.5 H* D Estim Creat Clear Calc 12.9 L eGFR 9 L* BUN/Creatinine Ratio 10 L Glucose 410 H* D Calculated Osmolality 299 H Calcium 7.6 L Corrected Calcium 8.4 L Phosphorus 7.4 H Magnesium 1.8 Total Bilirubin 0.2 L AST < 10 ALT 8 L Alkaline Phosphatase 92 Total Creatine Kinase 203 H Total Protein 6.1 Albumin 3.0 L D Globulin 3.1 Albumin/Globulin Ratio 1.0 L Hepatitis A IgM Ab Hep Bs Antigen Hep Bs Antibody Hep B Core IgM Ab Hepatitis C Antibody ABG Interpretation ABG results: 03/31/24 04/01/24 23:41 09:24 ABG pH 7.30 L 7.31 L ABG pCO2 31 L 31 L ABG pO2 171 H 98 D ABG HCO3 15 L 16 L ABG O2 Saturation 100 H 98 ABG Base Excess -10 L -10 L Quality Measures Quality Measures sepsis Current suspected stage: sepsis Possible source: pulmonary Blood cultures ordered: yes Antibiotic ordered: Yes Assessment & Plan Assessment Current Active Medications: Generic Name Dose Route Start Last Admin Trade Name Freq PRN Reason Stop Dose Admin Acetaminophen 650 mg 04/01/24 15:50 Acetaminophen 325 Mg Tablet PO 05/01/24 02:10 Q6H PRN PAIN(1-3) OR FEVER > 101 Hydrocodone Bitart/Acetaminophen 1 tab 04/01/24 15:48 04/02/24 01:25 Hydrocodone/Apap 5/325 Tablet PO 04/06/24 15:47 1 tab Q6HR PRN Administration PAIN SCALE 4-10(Mod-Sev Albuterol/Ipratropium 3 ml 04/02/24 11:02 Albuterol/Ipratropium (Duoneb) Rt Maggie 3 Ml Nebu INH 05/01/24 02:59 Q4HRRT PRN sob Azithromycin 500 mg 04/01/24 21:00 04/01/24 20:19 Azithromycin 250 Mg Tablet PO 04/08/24 20:59 500 mg QPM NASREEN Administration Protocol Dextrose 25 ml 04/01/24 02:16 Dextrose 50%-Water Inj 50 Ml Syringe IV 05/01/24 02:15 Q15MIN PRN BG 50-70 responsive npo pt Dextrose 50 ml 04/01/24 02:16 Dextrose 50%-Water Inj 50 Ml Syringe IV 05/01/24 02:15 Q15MIN PRN BG <50 OR BG <70 & pt unresponsive Glucagon 1 mg 04/01/24 02:16 Glucagon Inj 1 Mg Vial IM Q15MIN PRN BG <70, and no IV access Heparin Sodium (Porcine) 5,000 unit 04/01/24 06:00 04/02/24 05:02 Heparin Sod Inj 5000 Unit/Ml Vial SC 04/15/24 05:59 5,000 unit Q8HR NASREEN Administration Heparin Sodium (Porcine) 2,500 unit 04/01/24 16:04 Heparin Sod Inj 1000 Unit/Ml Vial 10 Ml INDWELLCAT 04/15/24 16:03 X1 PRN DIALYSIS Ceftriaxone Sodium/Dextrose 50 mls @ 100 mls/hr 04/01/24 21:00 04/01/24 20:19 Rocephin/D5w 1gm Iv Premix IV 04/08/24 20:59 100 mls/hr QPM NASREEN Administration Insulin Glargine 40 unit 04/03/24 09:00 Insulin Glargine (Lantus) 5 Unit/0.05 Ml (Per 5 Units) SC 05/03/24 08:59 QAM NASREEN Insulin Human Lispro 0 unit 04/02/24 10:59 04/02/24 11:55 Insulin Lispro (Admelog) 1 Unit/0.01 Ml Unit SC 05/01/24 20:59 8 unit ACHS [facility] Administration Protocol Nifedipine 30 mg 04/03/24 09:00 Nifedipine Xl 30 Mg Tabcr PO 05/03/24 08:59 QDAY [facility] Ondansetron HCl 4 mg 04/01/24 02:11 04/02/24 12:03 Ondansetron Inj 2 Mg/Ml Inj 2 Ml IV 05/01/24 02:10 4 mg Q6H PRN Administration NAUSEA OR VOMITING Protocol Pantoprazole Sodium 40 mg 04/01/24 09:00 04/02/24 07:55 Pantoprazole 40 Mg Tablet PO 05/01/24 08:59 40 mg QDAY NASREEN Administration Prednisone 20 mg 04/03/24 09:00 Prednisone 20 Mg Tablet PO 05/03/24 08:59 QDAY [facility] Sennosides 1 tab 04/01/24 09:00 04/02/24 07:56 Senna Tablet PO 05/01/24 08:59 1 tab QDAY [facility] Administration Protocol Sevelamer Carbonate 800 mg 04/01/24 08:00 04/02/24 11:56 Sevelamer Carbonate 800 Mg Tablet PO 05/01/24 07:59 800 mg TIDWM [facility] Administration Plan 43-year-old female with past medical history of hypertension, IDDM, left AKA, chronic osteomyelitis of right first metatarsal and proximal phalanx of first digit and distal amputated second metatarsal, CKD stage V, and asthma was admitted to the hospital on 04/01/2024 due to sepsis and acute hypoxic respiratory failure likely secondary to pneumonia versus asthma exacerbation and CKD. #Sepsis likely secondary to community-acquired pneumonia versus chronic osteomyelitis #Acute hypoxic respiratory failure likely secondary to community-acquired pneumonia versus asthma exacerbation #Community-acquired pneumonia #Asthma exacerbation # Hx of chronic osteomyelitis of right first digit ? Patient initially came in with complaints of shortness of breath and had recent sick contacts. ?Met SIRS criteria 2 out of 4 with tachycardia and leukocytosis ?Patient has been chronic osteomyelitis of right first digit ??Chest x-ray showed bibasilar pneumonia ?WBC 23.2, could be infectious as well as reactive in the setting that patient is on steroids Plan: ?Continue azithromycin and Rocephin [03/24/2024? ] ?ESR and CRP for tomorrow morning ?Blood cultures and urine cultures pending ?Wound care ?Decrease prednisone to 20 mg daily ?Will continue to monitor #CKD stage V #Non-anion gap metabolic acidosis, resolved ?Most likely diabetic nephropathy given longstanding uncontrolled diabetes ?Baseline creatinine was 5 on 12/05/2023 and previous one was 3.3 on 08/27/2023 ?Creatinine 5.5 and BUN 57 with GFR of 9 today - bicarb 20 today Plan: ?Continue hemodialysis as scheduled ?Avoid nephrotoxic agents ?Renally dose medications ?Nephrology consulted, appreciate recommendations ?Will continue to monitor #IDDM #Hx of left AKA ?A1c on 04/01/2024 was 6.8 ?Patient takes 38 units of glargine at home ?Glucose has been in the 400s overnight, this could be a component of prednisone Plan: ?Increase glargine to 40 every morning ?ISS resistant ?Accu-Cheks and hypoglycemic protocol ordered ?Will continue to monitor #Normocytic normochromic anemia #Thrombocytosis ?Patient's hemoglobin at baseline is around 7 - 8 and platelets at 500 ?Hemoglobin today 7.7 and platelets 442 ?Patient got 1 PRBC transfused during this hospital course Plan: ?Will transfuse hemoglobin less than 7 ?Will continue to monitor #Electrolyte imbalance #Hypophosphatemia #Hypocalcemia #Hypomagnesemia ?Phos 7.4 today, mag 1.8, calcium 8.4 Plan: ?Continue sevelamer 800 3 times daily ?Will replete as necessary ?Will continue to monitor #Pseudohyponatremia ?Sodium 133 ?Corrected sodium 140 Plan: ?Will continue with glucose control ?Continue to monitor #Hx of hypertension ?Started nifedipine 30 mg daily -DC'd amlodipine Disposition: Patient during dialysis, pending blood cultures and nephro recommendations, tight glycemic control. Diet: Carb consistent low GI prophylaxis: protonix DVT prophylaxis: heparin sc Code: DNR Case disclosed with Attending Dr. Latasha Vazquez PGY1 Attending Provider Attestation/Addendum I have examined the patient, reviewed labs and imaging findings, discussed the case with the resident(s), and reviewed entered orders. I agree with the plan of care as outlined in this note, with these additional summaries/recommendations: # Acute hypoxic respiratory failure # Community-acquired pneumonia # Asthma exacerbation Chest x-ray significant for bibasilar pneumonia Plan: Continue DuoNebs every 4 hrs, IV Rocephin plus azithromycin, and decrease prednisone to 20 mg p.o. daily. Significant leukocytosis present although likely steroid-induced and repeat hematology panel in AM. Wean supplemental oxygen as tolerated # Acute renal failure Likely secondary to progression of underlying CKD from diabetic nephropathy and hypertensive nephrosclerosis Nephrology consulted, recommendations appreciated Status post right femoral temporary dialysis catheter 04/01/24 Plan: Status post hemodialysis 04/01 and 04/02. Case management notified to arrange outpatient chair time. Nephrology following. Patient will need tunneled dialysis catheter prior to discharge. Continue to renally dose medications and avoid nephrotoxic agents. # Diabetes Mellitus Type II with hyperglycemia Previously uncontrolled, most recent A1c 04/01/2024 6.8% Significant hyperglycemia likely secondary to steroids Target blood sugar of 40-80 while hospitalized # Primary hypertension: Resume home antihypertensives as tolerated # Chronic osteomyelitis: Follow-up outpatient with wound clinic # History of retinal detachment: Follow-up outpatient with ophthalmology Dr. Pagan
--- NOTE | 2024-04-02 14:36 | PC.SS ---
Addendum entered by Jazmine Velasquez 04/02/24 15:10: SS received a call from Jennifer from [facility] in [place] requesting patient's social security, she informed SS they will follow up with SS once she finds out if they are able to take patient's insurance. SS informed her that SS will fax over TB results and other dialysis sessions when available. Original Note: SS sent Clinical information to [facility] in [place]. Patient is pending TB test, SS will send over to [facility] in [place] when available.
--- NOTE | 2024-04-02 15:17 | PC.SS ---
SS follow up note; Patient is currently intubated. SS contacted patients daughter Soco in regards to SNF facility. She informed SS that she would like patient to discharge to [facility] when medically cleared. SS contacted Daysi from [facility] and she is able to accept patient when cleared. SS will stand by for further needs.
[2024-04-02] MEDS: TUBERCULIN PPD INJ 5 UNIT/0.1 ML DOSE ID (18:06)
[2024-04-02] MEDS: cefTRIAXone/D5w 1gm IV premix 50 ML IV (20:50)
[2024-04-02] MEDS: AZITHROMYCIN 250 MG TABLET 500 MG PO (20:50)
[2024-04-03] VITALS (26 sets, daily range): BP systolic 100–168; BP diastolic 54–100; PULSE 71–104; RESP 15–97; TEMP 36–36.6; O2SAT 93–98
[2024-04-03] MEDS: HYDROcodone/APAP 5/325 TABLET 1 TAB PO ×2 (01:27→22:09)
[2024-04-03] MEDS: MELATONIN 3 MG TABLET PO ×2 (02:56→20:19)
[2024-04-03] MEDS: CYCLObenzaPRINE 5 MG TABLET 10 MG PO ×2 (04:23→20:19)
[2024-04-03] MEDS: HEPARIN SOD INJ 5000 UNIT/ML VIAL SC ×2 (05:33→14:58)
[2024-04-03 06:52] LABS: Basophils # (Auto) 0.1 Thou/mm3 (0.0-0.2); Basophils % (Auto) 0 % (0-2.5); Eosinophils % (Auto) 0 % (0-10); Hematocrit 22.4 % (36.0-46.0); Immature Granulocytes % (Auto) 2 % (0-0); Immature Granulocytes Auto 0.43 Thou/mm3 (0.00-0.00); Lymphocytes # (Auto) 3.6 Thou/mm3 (1.0-4.8); Lymphocytes % (Auto) 15 % (10-50); Mean Corpuscular HGB Conc 32.6 g/dl (31.0-37.0); Mean Corpuscular Hemoglobin 28.5 pg (25.0-35.0); Mean Corpuscular Volume 88 fL (80-100); Monocytes # (Auto) 1.5 Thou/mm3 (0.0-0.8); Monocytes % (Auto) 6 % (0-12); Neutrophils # (Auto) 17.9 Thou/mm3 (1.8-7.7); Neutrophils % (Auto) 76 % (37-80); Nucleated Red Blood Cell # 0.06 Thou/mm3 (0.00-0.00); Nucleated Red Blood Cell % 0 /100 WBC (0); Platelet Count 459 Thou/mm3 (140-440); RDW Standard Deviation 49.6 fL (36.4-46.3); Red Blood Count 2.56 Miln/mm3 (4.00-5.20); White Blood Count 23.4 Thou/mm3 (3.6-11.0)
[2024-04-03 07:03] LABS: Hemoglobin 7.3 g/dL (12.0-16.0)
[2024-04-03 07:22] LABS: Sed Rate (ESR) 56 mm/hr (0-20)
[2024-04-03 07:32] LABS: Alanine Aminotransferase < 7 U/L (10-49); Albumin, Serum 3.2 gm/dL (3.5-5.0); Albumin/Globulin Ratio 1.1 (1.2-2.2); Alkaline Phosphatase 90 U/L (46-116); Anion Gap 7 (7-16); Aspartate Amino Transferase < 10 U/L (0-34); BUN/Creatinine Ratio 10 Ratio (12-20); Bilirubin,Total 0.2 mg/dL (0.3-1.2); Blood Urea Nitrogen 43 mg/dL (9-23); C-Reactive Protein 5.2 mg/dL (0.0-0.9); Calcium 7.3 mg/dL (8.3-10.6); Calcium (Corrected) 7.9 mg/dL (8.5-10.1); Carbon Dioxide 22.8 mMol/L (20.0-31.0); Chloride 102 mMol/L (98-107); Creatinine (Component) 4.3 mg/dL (0.6-1.3); Estimated Creatinine Clearance 16.4 mL/min (>60); Globulin 2.8 gm/dL (2.3-3.5); Glucose 328 mg/dL (74-106); Magnesium 1.6 mg/dL (1.6-2.6); Osmolality,Calculated 288 (275-295); Potassium 4.2 mMol/L (3.4-5.1); Sodium 132 mMol/L (136-145); eGFR 12 See Note
[2024-04-03] MEDS: INSULIN LISPRO (AdmeLOG) 1 UNIT/0.01 ML UNIT SC (07:37)
[2024-04-03] MEDS: SEVELAMER CARBONATE 800 MG TABLET PO ×2 (07:39→11:28)
--- NOTE | 2024-04-03 10:00 | PC.NURSE ---
BP TRENDING DOWN, PT DENIES ALL S/S OF HYPOTENSION WILL ADMIN PRN ALBUMIN PER MD ORDERS AND CONT. TO MONITOR
[2024-04-03] MEDS: ALBUMIN HUMAN 25% IVPB 25 GM/100 ML BTL IV (10:02)
[2024-04-03] MEDS: HEPARIN SOD INJ 1000 UNIT/ML VIAL 10 ML 2500 UNIT INDWELLCAT (11:04)
--- NOTE | 2024-04-03 11:24 | XR_ITS ---
Examination: Right foot 2 views Technique one AP lateral right foot 2 views Exam date and time: April 03, 2024 1605 hrs. Indications: Redness swelling and pain involving the foot this week Findings: Cortical bone destruction at the first metatarsophalangeal joint Mild erosions distal third metatarsal Chronic erosive changes amputated second metatarsal No fracture Impression: Osteomyelitis primarily first metatarsophalangeal joint Suggest MRI foot without contrast follow-up
--- NOTE | 2024-04-03 11:25 | PD.NEPHCONS ---
History of Present Illness Data of Consult Requesting Physician: Thomas San MD Primary Care Provider: Khadijah Veronica PA-C Consult Narrative History of present illness: 43-year-old female with past medical history of hypertension, uncontrolled insulin-dependent diabetes, status post left AKA, chronic right lower extremity wound ulcer CKD stage V, history of asthma presented to ED with chief complaints of shortness of breath. Pt has advanced kidney disease. nephrology is consulted for CKD and for need of HD. cc:: cc: Thomas San MD Review of Systems Review of Systems Systems Reviewed: All systems reviewed, normal except as documented Meds Home Medications and Allergies Home Medications ?Medication ?Instructions ?Recorded ?Confirmed ?Type amlodipine 2.5 mg tablet 2.5 mg PO QDAY 08/25/23 04/03/24 History insulin glargine 100 unit/mL (3 38 unit subcut QDAY 04/01/24 04/03/24 History mL) subcutaneous pen (Basaglar KwikPen U-100 Insulin) insulin regular human 100 unit/mL See Protocol subcut TID 04/01/24 04/03/24 History injection solution (Novolin R Regular U-100 Insulin) lorazepam 0.5 mg tablet 0.5 mg PO HS 04/01/24 04/03/24 History Allergies Allergy/AdvReac Type Severity Reaction Status Date / Time amoxicillin [From Augmentin] Allergy Severe Swelling Verified 11/02/23 20:23 of Lip/Tongue/Throat clavulanic acid Allergy Severe Swelling Verified 11/02/23 20:23 [From Augmentin] of Lip/Tongue/Throat Exam Vital Signs Temp Pulse Resp BP Pulse Ox O2 Del Method O2 Flow Rate 97.7 F 75 18 125/74 96 Room Air 0.5 04/03/24 11:04/03/24 11:01 04/03/24 11:01 04/03/24 11:01 04/03/24 11:04/03/24 06:17 04/03/24 03:00 Narrative Exam Heart S1, s2, Chest CTA kayla ext plus 1 edema Results Labs 04/04/24 05:53 04/04/24 05:53 Labs: Short CBC 04/03/24 Range/Units 04:46 WBC 23.4 H (3.6-11.0) Thou/mm3 Hgb 7.3 L (12.0-16.0) g/dL Hct 22.4 L (36.0-46.0) % Plt Count 459 H (140-440) Thou/mm3 BMP 04/03/24 04:46 Sodium 132 L Potassium 4.2 Chloride 102 Carbon Dioxide 22.8 BUN 43 H Creatinine 4.3 H* D Glucose 328 H D Calcium 7.3 L Liver Function 04/03/24 Range/Units 04:46 Total Bilirubin 0.2 L (0.3-1.2) mg/dL AST < 10 (0-34) U/L ALT < 7 L (10-49) U/L Alkaline Phosphatase 90 (46-116) U/L Albumin 3.2 L (3.5-5.0) gm/dL ABG Interpretation ABG results: 03/31/24 04/01/24 23:41 09:24 ABG pH 7.30 L 7.31 L ABG pCO2 31 L 31 L ABG pO2 171 H 98 D ABG HCO3 15 L 16 L ABG O2 Saturation 100 H 98 ABG Base Excess -10 L -10 L Assessment & Plan Assessment and plan (1) Poorly controlled type 2 diabetes mellitus: Status: Acute (2) ESRD (end stage renal disease): Status: Acute Assessment and plan: Pt has advanced kidney disease advised HD Pt consented for dialysis will need TDC started on HD with temporary dialysis catheter
[2024-04-03] MEDS: PANTOPRAZOLE 40 MG TABLET PO (11:27)
[2024-04-03] MEDS: SENNA TABLET 1 TAB PO (11:28)
[2024-04-03] MEDS: NIFEdipine XL 30 MG TABCR PO (11:28)
[2024-04-03] MEDS: INSULIN GLARGINE (Lantus) 5 UNIT/0.05 ML (PER 5 UNITS) 40 UNIT SC (11:29)
[2024-04-03] MEDS: CALCIUM CARBONATE 600 MG TABLET PO (11:33)
--- NOTE | 2024-04-03 11:42 | ESPR_ITS ---
Documentation for date of: 04/03/24 Subjective Subjective Interval history: Patient was seen during dialysis today. Patient had lower back pain overnight and was given one-time dose of cyclobenzaprine therefore she was mildly drowsy during assessment. She denies any abdominal pain or any bleeding. She stated that she had not been following up with wound care as she did not have a right, therefore we ordered foot x-ray to assess for osteomyelitis. No other complaints at this time. 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 Nose: No nasal discharge. Mouth/Throat: Dry mucous membranes, poor dentation no redness, no lesions. Neck: Neck supple, non-tender, no cervical lymphadenopathy. Lungs: Clear RONALD to auscultation and percussion, No accessory muscle use. Cardio: Normal S1/S2, regular rhythm, no murmurs, no JVD Abdomen: Soft, non-tender, no palpable masses, peristalsis present, no guarding or rebound. Extremities L LE AKA, no peripheral edema , non-tender, peripheral pulses present R LE. R foot covered by clean dressing. Skin: No rashes, no lesions, warm to touch. Neuro: No focal neurological deficits. motor and sensory intact Psych: Cooperative, appropriate mood and effect. Objective Labs 04/03/24 04:46 04/03/24 04:46 Labs: Laboratory Results - last 24 hr 04/03/24 04:46 WBC 23.4 H RBC 2.56 L Hgb 7.3 L Hct 22.4 L MCV 88 MCH 28.5 MCHC 32.6 RDW Std Deviation 49.6 H Plt Count 459 H Neut % (Auto) 76 Lymph % (Auto) 15 Sullivan % (Auto) 6 Eos % (Auto) 0 Baso % (Auto) 0 Neut # (Auto) 17.9 H Lymph # (Auto) 3.6 Sullivan # (Auto) 1.5 H Eos # (Auto) 0.0 Baso # (Auto) 0.1 Immature Gran # (Auto) 0.43 H Absolute Nucleated RBC 0.06 H Immature Gran % 2 H Nucleated RBC % 0 ESR 56 H Sodium 132 L Potassium 4.2 Chloride 102 Carbon Dioxide 22.8 Anion Gap 7 BUN 43 H Creatinine 4.3 H* D Estim Creat Clear Calc 16.4 L eGFR 12 L* BUN/Creatinine Ratio 10 L Glucose 328 H D Calculated Osmolality 288 Calcium 7.3 L Corrected Calcium 7.9 L Phosphorus 4.0 Magnesium 1.6 Total Bilirubin 0.2 L AST < 10 ALT < 7 L Alkaline Phosphatase 90 C-Reactive Prot, Quant 5.2 H Total Protein 6.0 Albumin 3.2 L Globulin 2.8 Albumin/Globulin Ratio 1.1 L ABG Interpretation ABG results: 03/31/24 04/01/24 23:41 09:24 ABG pH 7.30 L 7.31 L ABG pCO2 31 L 31 L ABG pO2 171 H 98 D ABG HCO3 15 L 16 L ABG O2 Saturation 100 H 98 ABG Base Excess -10 L -10 L Quality Measures Quality Measures sepsis Current suspected stage: sepsis Possible source: pulmonary Blood cultures ordered: yes Antibiotic ordered: Yes Assessment & Plan Assessment Current Active Medications: Generic Name Dose Route Start Last Admin Trade Name Freq PRN Reason Stop Dose Admin Acetaminophen 650 mg 04/01/24 15:50 Acetaminophen 325 Mg Tablet PO 05/01/24 02:10 Q6H PRN PAIN(1-3) OR FEVER > 101 Hydrocodone Bitart/Acetaminophen 1 tab 04/01/24 15:48 04/03/24 01:27 Hydrocodone/Apap 5/325 Tablet PO 04/06/24 15:47 1 tab Q6HR PRN Administration PAIN SCALE 4-10(Mod-Sev Albuterol/Ipratropium 3 ml 04/02/24 11:02 Albuterol/Ipratropium (Duoneb) Rt Maggie 3 Ml Nebu INH 05/01/24 02:59 Q4HRRT PRN sob Azithromycin 500 mg 04/01/24 21:00 04/02/24 20:50 Azithromycin 250 Mg Tablet PO 04/08/24 20:59 500 mg QPM NASREEN Administration Protocol Cyclobenzaprine HCl 10 mg 04/03/24 21:00 Cyclobenzaprine 5 Mg Tablet PO 05/03/24 20:59 HS NASREEN Dextrose 25 ml 04/01/24 02:16 Dextrose 50%-Water Inj 50 Ml Syringe IV 05/01/24 02:15 Q15MIN PRN BG 50-70 responsive npo pt Dextrose 50 ml 04/01/24 02:16 Dextrose 50%-Water Inj 50 Ml Syringe IV 05/01/24 02:15 Q15MIN PRN BG <50 OR BG <70 & pt unresponsive Glucagon 1 mg 04/01/24 02:16 Glucagon Inj 1 Mg Vial IM Q15MIN PRN BG <70, and no IV access Heparin Sodium (Porcine) 5,000 unit 04/01/24 06:00 04/03/24 05:33 Heparin Sod Inj 5000 Unit/Ml Vial SC 04/15/24 05:59 5,000 unit Q8HR NASREEN Administration Heparin Sodium (Porcine) 2,500 unit 04/01/24 16:04 04/03/24 11:04 Heparin Sod Inj 1000 Unit/Ml Vial 10 Ml INDWELLCAT 04/15/24 16:03 2,500 unit X1 PRN Administration DIALYSIS Ceftriaxone Sodium/Dextrose 50 mls @ 100 mls/hr 04/01/24 21:00 04/02/24 20:50 Rocephin/D5w 1gm Iv Premix IV 04/08/24 20:59 100 mls/hr QPM NASREEN Administration Albumin Human 25 gm in 100 mls @ 100 mls/min 04/03/24 07:21 04/03/24 10:02 Albuminar-25 Ivpb IV 100 mls/min PRN PRN Administration DIALYSIS Insulin Glargine 40 unit 04/03/24 09:00 04/03/24 11:29 Insulin Glargine (Lantus) 5 Unit/0.05 Ml (Per 5 Units) SC 05/03/24 08:59 40 unit QAM NASREEN Administration Insulin Human Lispro 0 unit 04/02/24 10:59 04/03/24 07:37 Insulin Lispro (Admelog) 1 Unit/0.01 Ml Unit SC 05/01/24 20:59 12 unit ACHS NASREEN Administration Protocol Melatonin 3 mg 04/03/24 02:45 04/03/24 02:56 Melatonin 3 Mg Tablet PO 05/03/24 02:44 3 mg HS NASREEN Administration Nifedipine 30 mg 04/03/24 09:00 04/03/24 11:28 Nifedipine Xl 30 Mg Tabcr PO 05/03/24 08:59 30 mg QDAY NASREEN Administration Ondansetron HCl 4 mg 04/01/24 02:11 04/02/24 21:20 Ondansetron Inj 2 Mg/Ml Inj 2 Ml IV 05/01/24 02:10 4 mg Q6H PRN Administration NAUSEA OR VOMITING Protocol Pantoprazole Sodium 40 mg 04/01/24 09:00 04/03/24 11:27 Pantoprazole 40 Mg Tablet PO 05/01/24 08:59 40 mg QDAY NASREEN Administration Sennosides 1 tab 04/01/24 09:00 04/03/24 11:28 Senna Tablet PO 05/01/24 08:59 1 tab QDAY NASREEN Administration Protocol Sevelamer Carbonate 800 mg 04/01/24 08:00 04/03/24 11:28 Sevelamer Carbonate 800 Mg Tablet PO 05/01/24 07:59 800 mg TIDWM NASREEN Administration Plan 43-year-old female with past medical history of hypertension, IDDM, left AKA, chronic osteomyelitis of right first metatarsal and proximal phalanx of first digit and distal amputated second metatarsal, CKD stage V, and asthma was admitted to the hospital on 04/01/2024 due to sepsis and acute hypoxic respiratory failure likely secondary to pneumonia versus asthma exacerbation and CKD. #Sepsis likely secondary to community-acquired pneumonia versus chronic osteomyelitis #Acute hypoxic respiratory failure likely secondary to community-acquired pneumonia versus asthma exacerbation #Community-acquired pneumonia #Asthma exacerbation # Hx of chronic osteomyelitis of right first digit ? Patient initially came in with complaints of shortness of breath and had recent sick contacts. ?Met SIRS criteria 2 out of 4 with tachycardia and leukocytosis ?Patient has been chronic osteomyelitis of right first digit ??Chest x-ray showed bibasilar pneumonia ?WBC 23.4, could be infectious as well as reactive in the setting that patient is on steroids ?DC'd prednisone -Blood and urine Cx negative -ESR 56 and CRP 5.2 Plan: ?Continue azithromycin and Rocephin [03/24/2024? ] -Ordered r foot X-ray ?Wound care ?Will continue to monitor #CKD stage V #Non-anion gap metabolic acidosis, resolved ?Most likely diabetic nephropathy given longstanding uncontrolled diabetes ?Baseline creatinine was 5 on 12/05/2023 and previous one was 3.3 on 08/27/2023 ?Creatinine 4.3 and BUN 43 with GFR of 12 today - bicarb 22.8 today -Second HD today Plan: ?Continue hemodialysis as scheduled ?Avoid nephrotoxic agents ?Renally dose medications ?Nephrology consulted, appreciate recommendations ?Will continue to monitor #IDDM #Hx of left AKA ?A1c on 04/01/2024 was 6.8 ?Patient takes 38 units of glargine at home ?Glucose has been in the 300's Plan: ?Continue glargine to 40 every morning ?ISS resistant ?Accu-Cheks and hypoglycemic protocol ordered ?Will continue to monitor #Normocytic normochromic anemia #Thrombocytosis ?Patient's hemoglobin at baseline is around 7 - 8 and platelets at 500 ?Hemoglobin today 7.3 and platelets 459 ?Patient got 1 PRBC transfused during this hospital course Plan: -Ordered iron panel and ferritin -Ordered FOBT ?Will transfuse hemoglobin less than 7 ?Will continue to monitor #Electrolyte imbalance #Hypophosphatemia #Hypocalcemia #Hypomagnesemia ?Phos 4 today, mag 1.6, calcium 7.9 Plan: ?Continue sevelamer 800 3 times daily -Calcium gluconate x1 ?Will replete as necessary ?Will continue to monitor #Pseudohyponatremia ?Sodium 132 ?Corrected sodium 138 Plan: ?Will continue with glucose control ?Continue to monitor #Hx of hypertension ?Started nifedipine 30 mg daily -DC'd amlodipine Disposition: Patient seen during dialysis, pending nephro recommendations, tight glycemic control. Diet: Carb consistent low GI prophylaxis: protonix DVT prophylaxis: heparin sc Code: DNR Case disclosed with Attending Dr. Latasha Vazquez PGY1 Attending Provider Attestation/Addendum I have examined the patient, reviewed labs and imaging findings, discussed the case with the resident(s), and reviewed entered orders. I agree with the plan of care as outlined in this note, with these additional summaries/recommendations: # Acute hypoxic respiratory failure # Community-acquired pneumonia # Asthma exacerbation Chest x-ray significant for bibasilar pneumonia Plan: Continue DuoNebs every 4 hrs, IV Rocephin plus azithromycin, and DC prednisone today as patient is no longer wheezing and significant hyperglycemia present. Leukocytosis present although likely steroid-induced and repeat hematology panel in AM. Wean supplemental oxygen as tolerated # Acute renal failure Likely secondary to progression of underlying CKD from diabetic nephropathy and hypertensive nephrosclerosis Nephrology consulted, recommendations appreciated Status post right femoral temporary dialysis catheter 04/01/24 Plan: Status post hemodialysis 04/01 and 04/02. Case management notified to arrange outpatient chair time. Nephrology following. Patient will need tunneled dialysis catheter prior to discharge. Continue to renally dose medications and avoid nephrotoxic agents. # Diabetes Mellitus Type II with hyperglycemia Previously uncontrolled, most recent A1c 04/01/2024 6.8% Significant hyperglycemia likely secondary to steroids Target blood sugar of 140-180 while hospitalized #Chronic Osteomyelitis 08/26/23 MRI Right Foot: osteomyelitis distal first metatarsal and and proximal phalanx first digit plus osteomyelitis distal amputated second metatarsal 04/03/24 ESR 56 & CRP 5.2 Plan: Consult wound care. Order XR right foot as patient does not appear to have received full treatment for osteomyelitis. If positive for osteo we will consult surgery and infectious disease # Primary hypertension: Resume home antihypertensives as tolerated # History of retinal detachment: Follow-up outpatient with ophthalmology Dr. Pagan
[2024-04-03] MEDS: cefTRIAXone/D5w 1gm IV premix 50 ML IV (20:18)
[2024-04-03] MEDS: AZITHROMYCIN 250 MG TABLET 500 MG PO (20:19)
[2024-04-04] VITALS (9 sets, daily range): BP systolic 105–172; BP diastolic 62–101; PULSE 86–99; RESP 14–99; TEMP 35.9–36.2; O2SAT 95–99
[2024-04-04 06:53] LABS: Basophils # (Auto) 0.1 Thou/mm3 (0.0-0.2); Basophils % (Auto) 0 % (0-2.5); Eosinophils # (Auto) 0.3 Thou/mm3 (0.0-0.5); Eosinophils % (Auto) 1 % (0-10); Hematocrit 24.1 % (36.0-46.0); Immature Granulocytes % (Auto) 1 % (0-0); Lymphocytes # (Auto) 4.6 Thou/mm3 (1.0-4.8); Lymphocytes % (Auto) 19 % (10-50); Mean Corpuscular HGB Conc 31.5 g/dl (31.0-37.0); Mean Corpuscular Hemoglobin 28.4 pg (25.0-35.0); Mean Corpuscular Volume 90 fL (80-100); Monocytes # (Auto) 1.3 Thou/mm3 (0.0-0.8); Monocytes % (Auto) 5 % (0-12); Neutrophils # (Auto) 17.6 Thou/mm3 (1.8-7.7); Neutrophils % (Auto) 73 % (37-80); Nucleated Red Blood Cell # 0.06 Thou/mm3 (0.00-0.00); Nucleated Red Blood Cell % 0 /100 WBC (0); Platelet Count 427 Thou/mm3 (140-440); RDW Standard Deviation 49.7 fL (36.4-46.3); Red Blood Count 2.68 Miln/mm3 (4.00-5.20); White Blood Count 24.1 Thou/mm3 (3.6-11.0)
[2024-04-04 07:03] LABS: Hemoglobin 7.6 g/dL (12.0-16.0)
[2024-04-04 07:23] LABS: Alanine Aminotransferase < 7 U/L (10-49); Albumin, Serum 3.6 gm/dL (3.5-5.0); Albumin/Globulin Ratio 1.3 (1.2-2.2); Alkaline Phosphatase 75 U/L (46-116); Anion Gap 8 (7-16); Aspartate Amino Transferase 12 U/L (0-34); BUN/Creatinine Ratio 8 Ratio (12-20); Bilirubin,Total 0.4 mg/dL (0.3-1.2); Blood Urea Nitrogen 32 mg/dL (9-23); Calcium 7.9 mg/dL (8.3-10.6); Calcium (Corrected) 8.2 mg/dL (8.5-10.1); Carbon Dioxide 27.8 mMol/L (20.0-31.0); Chloride 101 mMol/L (98-107); Estimated Creatinine Clearance 17.6 mL/min (>60); Globulin 2.7 gm/dL (2.3-3.5); Glucose 83 mg/dL (74-106); Magnesium 1.6 mg/dL (1.6-2.6); Osmolality,Calculated 279 (275-295); Phosphorous 3.7 mg/dL (2.4-5.1); Potassium 3.4 mMol/L (3.4-5.1); Sodium 137 mMol/L (136-145); Total Protein 6.3 gm/dL (5.7-8.2); eGFR 13 See Note
[2024-04-04 07:27] LABS: Ferritin 209 ng/mL (7.3-270.7); Total Iron Binding Capacity 207 mcg/dL (250-425)
[2024-04-04 07:37] LABS: Iron 12 mcg/dL (50-170); Percent Iron Saturation 5 % (20-55); Unsaturated Iron Binding 195 (225-295)
[2024-04-04] MEDS: SEVELAMER CARBONATE 800 MG TABLET PO ×3 (07:48→17:58)
[2024-04-04] MEDS: Magnesium Sulfate 2 GM Ivpb 2 GM/50 ML BAG IV (08:30)
[2024-04-04] MEDS: INSULIN GLARGINE (Lantus) 5 UNIT/0.05 ML (PER 5 UNITS) 40 UNIT SC (08:31)
[2024-04-04] MEDS: NIFEdipine XL 30 MG TABCR PO (08:31)
[2024-04-04] MEDS: PANTOPRAZOLE 40 MG TABLET PO (08:31)
[2024-04-04] MEDS: SENNA TABLET 1 TAB PO (08:32)
--- NOTE | 2024-04-04 11:09 | ESPR_ITS ---
<Statement entered by Charles Kathleen MD - 04/04/24 15:24> Patient was seen and examined at the bedside with internal medicine team. This patient 43-year-old female admitted for acute hypoxic respiratory failure and sepsis due to community-acquired pneumonia. Foot x-ray showed osteomyelitis therefore we consulted general surgery, Dr. Hartman for further recommendations and also consulted ID. We are waiting on outpatient dialysis set up. Patient was given calcium gluconate and hep B vaccine. Pending TB test reading. Ordered permacatheter placement for tomorrow morning to continue hemodialysis and n.p.o. after midnight. Will likely remove femoral line afterwards. All labs and orders were reviewed. I saw and examined the patient, and I agree with current management stated by Dr Gavin MD,PGY1. Plan of care was discussed with the attending physician and resident physician. Disclaimer: Despite multiple revisions, due to the dictation software being used, the document bellow may not be free of grammatical errors including phonetic/typographic errors. However, this does not deter from our commitment to providing health care in the patient's best interest in mind. Dr. Danny MD, PGY 2 Documentation for date of: 04/04/24 Subjective Subjective Interval history: Patient was seen and examined at bedside this AM. No acute exents overnight. Patient tolerating diet, adequate urine output and mentation is at baseline. Patient endorses improvement of her SOB and is currently on 2L O2 via NC. Patient's Hb stable at 7.6 and she received 1 unit PRBC thus far on this admission Iron panel significant for FE 12, TIBC 207, ferritin 219. Mixed picture of iron deficiency and anemia of chronic disease. Patient started on IV iron today Foot x-ray completed on 04/03 significant for first MCP joint osteomyelitis. General Surgery and infectious disease were consulted for recommendations. Patient received 2 sessions of hemodialysis so far on this admission and scheduled for third session tomorrow. Currently dialyzing via right femoral temporary dialysis catheter, plan for placement of internal jugular permanent catheter tomorrow and removal of femoral catheter. Hepatitis B, C were negative with hep B antibody nonreactive. PPD pending read today. Patient was administered hepatitis B vaccine today. 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 Nose: No nasal discharge. Mouth/Throat: Dry mucous membranes, poor dentation no redness, no lesions. Neck: Neck supple, non-tender, no cervical lymphadenopathy. Lungs: Clear RONALD to auscultation and percussion, decreased AE at bases, No accessory muscle use. Cardio: Normal S1/S2, regular rhythm, no murmurs, no JVD Abdomen: Soft, non-tender, no palpable masses, peristalsis present, no guarding or rebound. Extremities L LE AKA, no peripheral edema , non-tender, peripheral pulses present R LE. Base of R foot ulcer, eschar, non purulent Skin: No rashes, no lesions, warm to touch. Neuro: No focal neurological deficits. motor and sensory intact Psych: Cooperative, appropriate mood and effect. Objective Labs 04/04/24 05:53 04/04/24 05:53 Labs: Laboratory Results - last 24 hr 04/04/24 05:53 WBC 24.1 H RBC 2.68 L Hgb 7.6 L Hct 24.1 L MCV 90 MCH 28.4 MCHC 31.5 RDW Std Deviation 49.7 H Plt Count 427 D Neut % (Auto) 73 Lymph % (Auto) 19 Anson % (Auto) 5 Eos % (Auto) 1 Baso % (Auto) 0 Neut # (Auto) 17.6 H Lymph # (Auto) 4.6 Anson # (Auto) 1.3 H Eos # (Auto) 0.3 Baso # (Auto) 0.1 Immature Gran # (Auto) 0.20 H Absolute Nucleated RBC 0.06 H Immature Gran % 1 H Nucleated RBC % 0 Sodium 137 Potassium 3.4 D Chloride 101 Carbon Dioxide 27.8 Anion Gap 8 BUN 32 H Creatinine 4.0 H Estim Creat Clear Calc 17.6 L eGFR 13 L* BUN/Creatinine Ratio 8 L Glucose 83 D Calculated Osmolality 279 Calcium 7.9 L Corrected Calcium 8.2 L Phosphorus 3.7 Magnesium 1.6 Iron 12 L TIBC 207 L Iron Saturation 5 L Unsat Iron Binding 195 L Ferritin 209 Total Bilirubin 0.4 AST 12 ALT < 7 L Alkaline Phosphatase 75 Total Protein 6.3 Albumin 3.6 Globulin 2.7 Albumin/Globulin Ratio 1.3 ABG Interpretation ABG results: 03/31/24 04/01/24 23:41 09:24 ABG pH 7.30 L 7.31 L ABG pCO2 31 L 31 L ABG pO2 171 H 98 D ABG HCO3 15 L 16 L ABG O2 Saturation 100 H 98 ABG Base Excess -10 L -10 L Quality Measures Quality Measures sepsis Current suspected stage: sepsis Possible source: pulmonary Blood cultures ordered: yes Antibiotic ordered: Yes Assessment & Plan Assessment Current Active Medications: Generic Name Dose Route Start Last Admin Trade Name Freq PRN Reason Stop Dose Admin Acetaminophen 650 mg 04/01/24 15:50 Acetaminophen 325 Mg Tablet PO 05/01/24 02:10 Q6H PRN PAIN(1-3) OR FEVER > 101 Hydrocodone Bitart/Acetaminophen 1 tab 04/01/24 15:48 04/03/24 22:09 Hydrocodone/Apap 5/325 Tablet PO 04/06/24 15:47 1 tab Q6HR PRN Administration PAIN SCALE 4-10(Mod-Sev Albuterol/Ipratropium 3 ml 04/02/24 11:02 Albuterol/Ipratropium (Duoneb) Rt Maggie 3 Ml Nebu INH 05/01/24 02:59 Q4HRRT PRN sob Azithromycin 500 mg 04/01/24 21:00 04/03/24 20:19 Azithromycin 250 Mg Tablet PO 04/08/24 20:59 500 mg QPM NASREEN Administration Protocol Cyclobenzaprine HCl 10 mg 04/03/24 21:00 04/03/24 20:19 Cyclobenzaprine 5 Mg Tablet PO 05/03/24 20:59 10 mg HS NASREEN Administration Dextrose 25 ml 04/01/24 02:16 Dextrose 50%-Water Inj 50 Ml Syringe IV 05/01/24 02:15 Q15MIN PRN BG 50-70 responsive npo pt Dextrose 50 ml 04/01/24 02:16 Dextrose 50%-Water Inj 50 Ml Syringe IV 05/01/24 02:15 Q15MIN PRN BG <50 OR BG <70 & pt unresponsive Glucagon 1 mg 04/01/24 02:16 Glucagon Inj 1 Mg Vial IM Q15MIN PRN BG <70, and no IV access Heparin Sodium (Porcine) 5,000 unit 04/01/24 06:00 04/04/24 05:06 Heparin Sod Inj 5000 Unit/Ml Vial SC 04/15/24 05:59 Not Given Q8HR NASREEN Heparin Sodium (Porcine) 2,500 unit 04/01/24 16:04 04/03/24 11:04 Heparin Sod Inj 1000 Unit/Ml Vial 10 Ml INDWELLCAT 04/15/24 16:03 2,500 unit X1 PRN Administration DIALYSIS Ceftriaxone Sodium/Dextrose 50 mls @ 100 mls/hr 04/01/24 21:00 04/03/24 20:18 Rocephin/D5w 1gm Iv Premix IV 04/08/24 20:59 100 mls/hr QPM NASREEN Administration Albumin Human 25 gm in 100 mls @ 100 mls/min 04/03/24 07:21 04/03/24 10:02 Albuminar-25 Ivpb IV 100 mls/min PRN PRN Administration DIALYSIS Ferric Sodium Gluconate 125 mg 110 mls @ 110 mls/hr 04/04/24 10:45 / Sodium Chloride IV 04/07/24 10:44 QDAY NASREEN Calcium Gluconate/Sodium Chloride 1,000 mg in 50 mls @ 50 mls/hr 04/04/24 11:00 Calcium Gluc/Ns 1000mg Ivpb IV 04/04/24 11:59 X1 ONE Insulin Glargine 40 unit 04/03/24 09:00 04/04/24 08:31 Insulin Glargine (Lantus) 5 Unit/0.05 Ml (Per 5 Units) SC 05/03/24 08:59 40 unit QAM NASREEN Administration Insulin Human Lispro 0 unit 04/02/24 10:59 04/04/24 07:49 Insulin Lispro (Admelog) 1 Unit/0.01 Ml Unit SC 05/01/24 20:59 Not Given ACHS [facility] Protocol Melatonin 3 mg 04/03/24 02:45 04/03/24 20:19 Melatonin 3 Mg Tablet PO 05/03/24 02:44 3 mg HS NASREEN Administration Nifedipine 30 mg 04/03/24 09:00 04/04/24 08:31 Nifedipine Xl 30 Mg Tabcr PO 05/03/24 08:59 30 mg QDAY NASREEN Administration Ondansetron HCl 4 mg 04/01/24 02:11 04/02/24 21:20 Ondansetron Inj 2 Mg/Ml Inj 2 Ml IV 05/01/24 02:10 4 mg Q6H PRN Administration NAUSEA OR VOMITING Protocol Pantoprazole Sodium 40 mg 04/01/24 09:00 04/04/24 08:31 Pantoprazole 40 Mg Tablet PO 05/01/24 08:59 40 mg QDAY NASREEN Administration Sennosides 1 tab 04/01/24 09:00 04/04/24 08:32 Senna Tablet PO 05/01/24 08:59 1 tab QDAY NASREEN Administration Protocol Sevelamer Carbonate 800 mg 04/01/24 08:00 04/04/24 07:48 Sevelamer Carbonate 800 Mg Tablet PO 05/01/24 07:59 800 mg TIDWM NASREEN Administration Plan Patient is a 43-year-old female past medical history of essential hypertension, IDDM [6.8], diabetic neuropathy s/p left AKA, chronic osteomyelitis of right first metatarsal and proximal phalanx of first digit and second distal metatarsal amputation, CKD stage V and asthma. Presented to the ED with a chief complaint of SOB and was admitted for acute respiratory failure with hypoxia secondary to sepsis due to CAP versus asthma exacerbation. 1. Acute respiratory failure with hypoxia Secondary to 2. Sepsis secondary to CAP versus asthma exacerbation?resolving 3. Community-acquired pneumonia 4. Leukocytosis - worsening Patient had SOB on admission and a history of sick contacts, her nephews. Associated with generalized weakness, body aches and productive cough. On exam patient mild wheezing. On admission patient met SIRS 2/4 for HR 113 and WBC 18.3 Source of infection CAP Chest x-ray was significant for bibasilar consolidation, no pleural effusion, pulmonary edema. Blood and urine cultures taken on 03/31 were both negative. Influenza A and B were also both negative Patient received 3 days of prednisone 20 Mg p.o. daily discontinued on 04/03. Leukocytosis most likely secondary to steroid use Patient endorses improvement of her SOB and is currently on 2L O2 via NC. Plan: ?Completed 3 days azithromycin 500 Mg p.o. daily [04/01 - 04/04] ?D4 ceftriaxone 1 g IV daily started on [04/01? ? Continue to monitor CBC ? Supplemental O2 as necessary 4. Asthma exacerbation - resolving On presentation patient was SOB associated with a productive cough for the past few days. His sick contacts were her both nephews who are sick at home with the flu. Patient's home medication nebulizer machine with albuterol solution as needed. Patient received 3 days of prednisone 20 Mg p.o. daily and is currently no longer complaining of SOB and has no wheeze heard on exam. Plan: ? DuoNebs every 6 hourly as needed ? Continue supplemental O2 as necessary 5. CKD stage V on hemodialysis via right femoral catheter Patient's baseline CR between 3?5. On this admission patient's CR 6.1. Most likely secondary to longstanding diabetic and hypertensive nephropathy. Nephrology, Dr. Livingston was consulted who recommended patient be started on hemodialysis. Hepatitis B, C were negative with hep B antibody nonreactive. PPD pending read today. Patient was administered hepatitis B vaccine today. Patient received 2 sessions of hemodialysis so far on this admission and scheduled for third session tomorrow. Currently dialyzing via right femoral temporary dialysis catheter, plan for placement of internal jugular permanent catheter tomorrow and removal of femoral catheter. Plan: ? Pending PPD read ? Administer hep B vaccine today as hep B antibody nonreactive ? To organize with social worker assistant for outpatient chair time for dialysis ? For placement of internal jugular permanent catheter tomorrow and removal of temporary right femoral temporary catheter. ? Continue sevelamer 800 mg p.o. 3 times daily ? Continue hemodialysis as scheduled ? Avoid nephrotoxic agents ? Renally dose medications ? Nephrology consulted, appreciate recommendations 6. NAGMA?resolved On admission bicarb 14.7. Currently bicarb 27.8 7. IDDM type II [6.8] 8. Diabetic neuropathy 9. 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 History of chronic osteomyelitis right first digit Patient's home medication insulin glargine 38 units subcut at night and insulin HR as needed. Patient's HbA1c on admission 6.8. Foot x-ray was significant for right metacarpal joint osteomyelitis Plan: ? Continue insulin glargine 40 units SC at bedtime as long-acting insulin ? Continue insulin sliding scale to cover any glucose spikes ? Low consistent carb diet ? General Surgery was consulted, appreciate recommendations. ? Infectious disease was consulted, appreciate recommendations. 11. Essential hypertension On admission BP 173/90. Currently BP 118/64 Home medication amlodipine 2.5 Mg p.o. daily Plan: ? Continue nifedipine 30 Mg p.o. daily 12. Normocytic anemia On admission Hb 8.1. Currently Hb 7.6 DDx: RUTH ANN, blood loss anemia, anemia of chronic disease, thalassemia, lead poisoning. Iron panel significant for FE 12, TIBC 207, ferritin 219. Mixed picture of iron deficiency and anemia of chronic disease. Patient started on IV iron today Plan: ? Continue IV iron started on [04/04? ? Recommend Epogen during HD sessions ? Continue to monitor CBC 13. Hypocalcemia On admission corrected Ca 7.2, currently corrected Ca 8.2 DDx: Hypoparathyroidism, vitamin D deficiency, acute renal failure, hypoalbuminemia, sepsis Most likely secondary to CKD stage V now requiring dialysis Plan: ? Calcium gluconate IV 10% x 1 ? Monitor calcium on CMP tomorrow Health maintenance: Disposition: For Perm cath placement tomorrow. Pending outpatient chair time Diet: Consistent carb low, renal Lines: pIVs GI Prophylaxis: Protonix Thrombo Prophylaxis: Heparin Code status: FULL CODE Plan of care discussed with Attending Dr. Pagan and PGY2 Dr. Danny Barton MD PGY 1 Attending Provider Attestation/Addendum I have examined the patient, reviewed labs and imaging findings, discussed the case with the resident(s), and reviewed entered orders. I agree with the plan of care as outlined in this note, with these additional summaries/recommendations: # Acute hypoxic respiratory failure # Community-acquired pneumonia # Asthma exacerbation Chest x-ray significant for bibasilar pneumonia Plan: Continue DuoNebs every 4 hrs, IV Rocephin plus azithromycin. Leukocytosis persists and continues to up-trend although this is most likely secondary to steroid usage. If wbc continues to worsen we will consider broadening antibiotic coverage # Acute renal failure Likely secondary to progression of underlying CKD from diabetic nephropathy and hypertensive nephrosclerosis Nephrology consulted, recommendations appreciated Status post right femoral temporary dialysis catheter 04/01/24 Plan: Status post hemodialysis 04/01 and 04/02. Case management notified to arrange outpatient chair time. Nephrology following. Patient will need tunneled dialysis catheter tomorrow 04/05 with IR. Continue to renally dose medications and avoid nephrotoxic agents. # Diabetes Mellitus Type II with hyperglycemia Previously uncontrolled, most recent A1c 04/01/2024 6.8% Significant hyperglycemia likely secondary to steroids Target blood sugar of 140-180 while hospitalized #Chronic Osteomyelitis 08/26/23 MRI Right Foot: osteomyelitis distal first metatarsal and and proximal phalanx first digit plus osteomyelitis distal amputated second metatarsal 04/03/24 ESR 56 & CRP 5.2 Plan: XR confirmed osteomyelitis first metatarsophalangeal joint, Consult surgery and infectious disease. Patient will likely require PICC line for extended course of abx. Consult wound care. # Primary hypertension: Resume home antihypertensives as tolerated # History of retinal detachment: Follow-up outpatient with ophthalmology Dr. Pagan
[2024-04-04] MEDS: CALCIUM GLUC/NS 1000MG IVPB 1,000 MG/50 ML BAG 50 MG IV (11:43)
[2024-04-04] MEDS: FERRIC SOD GLUC INJ 125 MG in SODIUM CHLORIDE 0.9% 100 ML 110 MG IV (12:41)
--- NOTE | 2024-04-04 13:18 | PD.SURCONS ---
HPI Consult details History of present illness: 43F with HTN, DMII, CKD, history of left AKA, and chronic right lower extremity wound who was admitted initially with shortness of breath. Yesterday patient underwent foot x-ray for swelling and was noted to have osteomyelitis of the first metatarsophalangeal joint for which general surgery was consulted. Patient also noted to have renal failure requiring initiation of dialysis Review of Systems Review of Systems ROS Unobtainable: All systems reviewed & no additional complaints except as documented Meds Home Medications and Allergies Home Medications ?Medication ?Instructions ?Recorded ?Confirmed ?Type amlodipine 2.5 mg tablet 2.5 mg PO QDAY 08/25/23 04/03/24 History insulin glargine 100 unit/mL (3 38 unit subcut QDAY 04/01/24 04/03/24 History mL) subcutaneous pen (Basaglar KwikPen U-100 Insulin) insulin regular human 100 unit/mL See Protocol subcut TID 04/01/24 04/03/24 History injection solution (Novolin R Regular U-100 Insulin) lorazepam 0.5 mg tablet 0.5 mg PO HS 04/01/24 04/03/24 History Allergies Allergy/AdvReac Type Severity Reaction Status Date / Time amoxicillin [From Augmentin] Allergy Severe Swelling Verified 11/02/23 20:23 of Lip/Tongue/Throat clavulanic acid Allergy Severe Swelling Verified 11/02/23 20:23 [From Augmentin] of Lip/Tongue/Throat Exam Vital Signs Temp Pulse Resp BP Pulse Ox O2 Del Method O2 Flow Rate 96.6 F L 90 17 109/71 95 Nasal Cannula 2 04/04/24 08:00 04/04/24 08:31 04/04/24 08:00 04/04/24 08:31 04/04/24 08:00 04/04/24 08:00 04/04/24 08:00 Constitutional Constitutional: no acute distress Routine Respiratory Exam Respiratory: Present no resp distress Routine Extremities Exam Comments: Right foot warm, eschar on the medial plantar surface with dry skin, no necrotic tissue, no erythema or fluctuance Results Results: Laboratory Laboratory results: results reviewed Results: Imaging Imaging narrative: Foot x-ray reviewed Assessment & Plan Plan 43F with HTN, DM2 and now ESRD with chronic right foot wound and associated osteomyelitis. Given the appearance of the wound patient does not currently require any surgical invention Will prescribe Santyl daily Appreciate wound care recs
[2024-04-04] MEDS: COLLAGENASE OINT 30 GM TUBE TOP (13:30)
[2024-04-04] MEDS: HEPARIN SOD INJ 5000 UNIT/ML VIAL SC (14:55)
--- NOTE | 2024-04-04 15:38 | PC.SS ---
SS follow up note; faxed TB reading to [facility] in [place]. Awaiting Surgeon Rec's.
[2024-04-04] MEDS: ONDANSETRON INJ 2 MG/ML INJ 2 ML 4 MG IV (17:27)
[2024-04-04] MEDS: CYCLObenzaPRINE 5 MG TABLET 10 MG PO (20:21)
[2024-04-04] MEDS: HYDROcodone/APAP 5/325 TABLET 1 TAB PO (20:21)
[2024-04-04] MEDS: cefTRIAXone/D5w 1gm IV premix 50 ML IV (20:21)
[2024-04-04] MEDS: MELATONIN 3 MG TABLET PO (20:22)
[2024-04-05] VITALS (19 sets, daily range): BP systolic 126–184; BP diastolic 71–99; PULSE 81–110; RESP 12–99; TEMP 35.9–36.7; O2SAT 92–100; BMI 34.2
[2024-04-05 05:48] LABS: Basophils # (Auto) 0.1 Thou/mm3 (0.0-0.2); Basophils % (Auto) 0 % (0-2.5); Eosinophils # (Auto) 0.4 Thou/mm3 (0.0-0.5); Eosinophils % (Auto) 2 % (0-10); Hematocrit 22.6 % (36.0-46.0); Immature Granulocytes % (Auto) 1 % (0-0); Immature Granulocytes Auto 0.15 Thou/mm3 (0.00-0.00); Lymphocytes # (Auto) 4.4 Thou/mm3 (1.0-4.8); Lymphocytes % (Auto) 19 % (10-50); Mean Corpuscular HGB Conc 31.4 g/dl (31.0-37.0); Mean Corpuscular Hemoglobin 28.2 pg (25.0-35.0); Mean Corpuscular Volume 90 fL (80-100); Monocytes % (Auto) 4 % (0-12); Neutrophils # (Auto) 16.8 Thou/mm3 (1.8-7.7); Neutrophils % (Auto) 74 % (37-80); Nucleated Red Blood Cell # 0.02 Thou/mm3 (0.00-0.00); Nucleated Red Blood Cell % 0 /100 WBC (0); Platelet Count 408 Thou/mm3 (140-440); RDW Standard Deviation 47.6 fL (36.4-46.3); Red Blood Count 2.52 Miln/mm3 (4.00-5.20); White Blood Count 22.8 Thou/mm3 (3.6-11.0)
[2024-04-05 06:07] LABS: Hemoglobin 7.1 g/dL (12.0-16.0)
[2024-04-05 06:24] LABS: Alanine Aminotransferase 31 U/L (10-49); Albumin, Serum 3.5 gm/dL (3.5-5.0); Albumin/Globulin Ratio 1.3 (1.2-2.2); Alkaline Phosphatase 98 U/L (46-116); Anion Gap 10 (7-16); Aspartate Amino Transferase 30 U/L (0-34); BUN/Creatinine Ratio 9 Ratio (12-20); Bilirubin,Total 0.3 mg/dL (0.3-1.2); Blood Urea Nitrogen 43 mg/dL (9-23); Calcium 7.9 mg/dL (8.3-10.6); Calcium (Corrected) 8.3 mg/dL (8.5-10.1); Carbon Dioxide 26.5 mMol/L (20.0-31.0); Chloride 100 mMol/L (98-107); Globulin 2.6 gm/dL (2.3-3.5); Glucose 143 mg/dL (74-106); Magnesium 2.3 mg/dL (1.6-2.6); Osmolality,Calculated 284 (275-295); Potassium 3.7 mMol/L (3.4-5.1); Sodium 136 mMol/L (136-145); Total Protein 6.1 gm/dL (5.7-8.2); eGFR 10 See Note
[2024-04-05 06:34] LABS: INR 0.9 (0.9-1.3); Prothrombin Time 9.8 Seconds (9.0-12.2)
--- NOTE | 2024-04-05 08:00 | XR_ITS ---
Ultrasound-guided needle placement right internal jugular vein Permanent tunneled dialysis catheter insertion, percutaneous Fluoroscopy AP chest, portable, 2 views Date and time of procedure: April 05, 2024 1135 hours INDICATIONS: Renal failure, need for stat and long-term dialysis Informed consent provided Technique: A timeout was completed verifying correct patient, procedure, site, positioning, and special equipment if applicable. The patient was placed in a dependent position appropriate for dialysis catheter placement based on the vein to be cannulated. The patient'sright neck was prepped and draped in sterile fashion. Maximum Sterile Barrier Technique used including cap, mask, sterile gown, sterile gloves, and sterile full body drape. If ultrasound technique used: sterile gel and sterile probe covers. Hand Hygiene performed using proper scrub, soap and water, or alcohol-based hand rub. 1% lidocaine was used to anesthetize the surrounding skin area [facility] [employer] [employer] portable ultrasound apparatus utilized to confirm patency right internal jugular vein Utilizing ultrasonographic guidance successful 21-gauge needle puncture right internal jugular vein Ultrasound images were recorded and stored. Vessel micropuncture was performed with 21-gauge needle. 0.18 wire guide is introduced into the vein. 0.18 wire is introduced into the vena cava under fluoroscopy. Subcutaneous tunnel formed in the upper chest. Permanent tunneled dialysis catheter placed in the subcutaneous tunnel. Dilators were introduced over the J-wire guide. Tunneled dialysis catheter is introduced through a dilator with venous sheath into the superior vena cava under fluoroscopic guidance. The catheter is sutured in place to the skin and a sterile dressing applied. Perfusion to the extremity distal to the point of catheter insertion is checked and found to be adequate Attending radiologist was present for the entire procedure Estimated blood loss2 cc. The patient tolerated the procedure well and there were no complications Impression: Successful ultrasound-guided needle placement right internal jugular vein Successful permanent tunneled dialysis catheter insertion, percutaneous Fluoroscopy 0.2 minute radiation dose 2.10 milligray 2 spot fluoroscopic chest films. AP chest performed at completion procedure demonstrates satisfactory position dialysis catheter. May use dialysis catheter.
[2024-04-05] MEDS: CALCIUM GLUC/NS 1000MG IVPB 1,000 MG/50 ML BAG 50 MG IV (08:19)
[2024-04-05 08:36] LABS: Hematocrit 21.3 % (36.0-46.0)
[2024-04-05 08:41] LABS: Hemoglobin 6.7 g/dL (12.0-16.0)
[2024-04-05] MEDS: COLLAGENASE OINT 30 GM TUBE TOP (09:00)
--- NOTE | 2024-04-05 09:36 | ESPR_ITS ---
<Statement entered by Charles Kathleen MD - 04/05/24 18:26> Patient was seen and examined at the bedside. Patient reported that she is doing better today. TB skin test was negative. Permacatheter was placed today without complication. Patient did had a hemoglobin drop from 7.1 to 6.7 therefore 1 unit PRBC was transfused. Post H&H follow-up. Femoral catheter was removed. For osteomyelitis ID recommended no long-term antibiotics given chronic osteomyelitis. Patient received hemodialysis per schedule today. I saw and examined the patient, and I agree with current management stated by Dr Gavin MD,PGY1. Plan of care was discussed with the attending physician and resident physician. Disclaimer: Despite multiple revisions, due to the dictation software being used, the document bellow may not be free of grammatical errors including phonetic/typographic errors. However, this does not deter from our commitment to providing health care in the patient's best interest in mind. Dr. Danny MD, PGY 2 Documentation for date of: 04/05/24 Subjective Subjective Interval history: Patient was seen and examined at bedside this AM. No acute exents overnight. Patient NPO, adequate urine output and mentation is at baseline. Patient endorses improvement of her SOB and is currently on 2L O2 via NC. Patient's Hb 6.7 this morning and 1 unit PRBC ordered Follow-up on posttransfusion H&H Patient on IV iron started on [04/04 - Patient is for placement of internal jugular permanent catheter today and removal of femoral catheter. Once third session of dialysis is completed to liaise with dude wrangler, Dr. Jimenez to organize outpatient dates and plan for discharge. Hepatitis B, C were negative with hep B antibody nonreactive. PPD negative Patient was administered hepatitis B vaccine 04/04. 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 Nose: No nasal discharge. Mouth/Throat: Dry mucous membranes, poor dentation no redness, no lesions. Neck: Neck supple, non-tender, no cervical lymphadenopathy. Lungs: Clear RONALD to auscultation and percussion, decreased AE at bases, No accessory muscle use. Cardio: Normal S1/S2, regular rhythm, no murmurs, no JVD Abdomen: Soft, non-tender, no palpable masses, peristalsis present, no guarding or rebound. R femoral catheter. Exit site clean. Extremities L LE AKA, no peripheral edema , non-tender, peripheral pulses present R LE. Base of R foot ulcer, eschar, non purulent Skin: No rashes, no lesions, warm to touch. Neuro: No focal neurological deficits. motor and sensory intact Psych: Cooperative, appropriate mood and effect. Objective Labs 04/06/24 05:27 04/06/24 05:27 Labs: Laboratory Results - last 24 hr 04/05/24 04/05/24 04:42 08:04 WBC 22.8 H RBC 2.52 L Hgb 7.1 L 6.7 L* Hct 22.6 L 21.3 L* MCV 90 MCH 28.2 MCHC 31.4 RDW Std Deviation 47.6 H Plt Count 408 Neut % (Auto) 74 Lymph % (Auto) 19 Gordon % (Auto) 4 Eos % (Auto) 2 Baso % (Auto) 0 Neut # (Auto) 16.8 H Lymph # (Auto) 4.4 Gordon # (Auto) 1.0 H Eos # (Auto) 0.4 Baso # (Auto) 0.1 Immature Gran # (Auto) 0.15 H Absolute Nucleated RBC 0.02 H Immature Gran % 1 H Nucleated RBC % 0 PT 9.8 INR 0.9 Sodium 136 Potassium 3.7 Chloride 100 Carbon Dioxide 26.5 Anion Gap 10 BUN 43 H Creatinine 5.0 H* D Estim Creat Clear Calc 14.0 L eGFR 10 L* BUN/Creatinine Ratio 9 L Glucose 143 H D Calculated Osmolality 284 Calcium 7.9 L Corrected Calcium 8.3 L Phosphorus 4.0 Magnesium 2.3 Total Bilirubin 0.3 AST 30 ALT 31 Alkaline Phosphatase 98 D Total Protein 6.1 Albumin 3.5 Globulin 2.6 Albumin/Globulin Ratio 1.3 ABG Interpretation ABG results: 03/31/24 04/01/24 23:41 09:24 ABG pH 7.30 L 7.31 L ABG pCO2 31 L 31 L ABG pO2 171 H 98 D ABG HCO3 15 L 16 L ABG O2 Saturation 100 H 98 ABG Base Excess -10 L -10 L Quality Measures Quality Measures sepsis Current suspected stage: sepsis Possible source: pulmonary Blood cultures ordered: yes Antibiotic ordered: Yes Assessment & Plan Assessment Current Active Medications: Generic Name Dose Route Start Last Admin Trade Name Freq PRN Reason Stop Dose Admin Acetaminophen 650 mg 04/01/24 15:50 Acetaminophen 325 Mg Tablet PO 05/01/24 02:10 Q6H PRN PAIN(1-3) OR FEVER > 101 Hydrocodone Bitart/Acetaminophen 1 tab 04/01/24 15:48 04/04/24 20:21 Hydrocodone/Apap 5/325 Tablet PO 04/06/24 15:47 1 tab Q6HR PRN Administration PAIN SCALE 4-10(Mod-Sev Albuterol/Ipratropium 3 ml 04/02/24 11:02 Albuterol/Ipratropium (Duoneb) Rt Maggie 3 Ml Nebu INH 05/01/24 02:59 Q4HRRT PRN sob Collagenase 0 gm 04/04/24 13:30 04/04/24 13:30 Collagenase Oint 30 Gm Tube TOP 05/04/24 13:29 1 applicatio QDAY NASREEN Administration Cyclobenzaprine HCl 10 mg 04/03/24 21:00 04/04/24 20:21 Cyclobenzaprine 5 Mg Tablet PO 05/03/24 20:59 10 mg HS NASREEN Administration Dextrose 25 ml 04/01/24 02:16 Dextrose 50%-Water Inj 50 Ml Syringe IV 05/01/24 02:15 Q15MIN PRN BG 50-70 responsive npo pt Dextrose 50 ml 04/01/24 02:16 Dextrose 50%-Water Inj 50 Ml Syringe IV 05/01/24 02:15 Q15MIN PRN BG <50 OR BG <70 & pt unresponsive Glucagon 1 mg 04/01/24 02:16 Glucagon Inj 1 Mg Vial IM Q15MIN PRN BG <70, and no IV access Heparin Sodium (Porcine) 5,000 unit 04/01/24 06:00 04/05/24 05:18 Heparin Sod Inj 5000 Unit/Ml Vial SC 04/15/24 05:59 Not Given Q8HR NASREEN Heparin Sodium (Porcine) 2,500 unit 04/01/24 16:04 04/03/24 11:04 Heparin Sod Inj 1000 Unit/Ml Vial 10 Ml INDWELLCAT 04/15/24 16:03 2,500 unit X1 PRN Administration DIALYSIS Ceftriaxone Sodium/Dextrose 50 mls @ 100 mls/hr 04/01/24 21:00 04/04/24 20:21 Rocephin/D5w 1gm Iv Premix IV 04/08/24 20:59 100 mls/hr QPM NASREEN Administration Albumin Human 25 gm in 100 mls @ 100 mls/min 04/03/24 07:21 04/03/24 10:02 Albuminar-25 Ivpb IV 100 mls/min PRN PRN Administration DIALYSIS Ferric Sodium Gluconate 125 mg 110 mls @ 110 mls/hr 04/04/24 10:45 04/04/24 12:41 / Sodium Chloride IV 04/07/24 10:44 110 mls/hr QDAY NASREEN Administration Insulin Glargine 40 unit 04/05/24 21:00 Insulin Glargine (Lantus) 5 Unit/0.05 Ml (Per 5 Units) SC 05/05/24 20:59 HS NASREEN Insulin Human Lispro 0 unit 04/02/24 10:59 04/05/24 07:30 Insulin Lispro (Admelog) 1 Unit/0.01 Ml Unit SC 05/01/24 20:59 Not Given ACHS [facility] Protocol Melatonin 3 mg 04/03/24 02:45 04/04/24 20:22 Melatonin 3 Mg Tablet PO 05/03/24 02:44 3 mg HS NASREEN Administration Nifedipine 30 mg 04/03/24 09:00 04/04/24 08:31 Nifedipine Xl 30 Mg Tabcr PO 05/03/24 08:59 30 mg QDAY NASREEN Administration Ondansetron HCl 4 mg 04/01/24 02:11 04/04/24 17:27 Ondansetron Inj 2 Mg/Ml Inj 2 Ml IV 05/01/24 02:10 4 mg Q6H PRN Administration NAUSEA OR VOMITING Protocol Pantoprazole Sodium 40 mg 04/01/24 09:00 04/04/24 08:31 Pantoprazole 40 Mg Tablet PO 05/01/24 08:59 40 mg QDAY NASREEN Administration Sennosides 1 tab 04/01/24 09:00 04/04/24 08:32 Senna Tablet PO 05/01/24 08:59 1 tab QDAY NASREEN Administration Protocol Sevelamer Carbonate 800 mg 04/01/24 08:00 04/04/24 17:58 Sevelamer Carbonate 800 Mg Tablet PO 05/01/24 07:59 800 mg TIDWM NASREEN Administration Plan Patient is a 43-year-old female past medical history of essential hypertension, IDDM [6.8], diabetic neuropathy s/p left AKA, chronic osteomyelitis of right first metatarsal and proximal phalanx of first digit and second distal metatarsal amputation, CKD stage V and asthma. Presented to the ED with a chief complaint of SOB and was admitted for acute respiratory failure with hypoxia secondary to sepsis due to CAP versus asthma exacerbation. 1. Acute respiratory failure with hypoxia Secondary to 2. Sepsis secondary to CAP versus asthma exacerbation?resolving 3. Community-acquired pneumonia 4. Leukocytosis - worsening Patient had SOB on admission and a history of sick contacts, her nephews. Associated with generalized weakness, body aches and productive cough. On exam patient mild wheezing. On admission patient met SIRS 2/4 for HR 113 and WBC 18.3 Source of infection CAP Chest x-ray was significant for bibasilar consolidation, no pleural effusion, pulmonary edema. Blood and urine cultures taken on 03/31 were both negative. Influenza A and B were also both negative Patient received 3 days of prednisone 20 Mg p.o. daily discontinued on 04/03. Leukocytosis most likely secondary to steroid use Patient endorses improvement of her SOB and is currently on 2L O2 via NC. Plan: ?Completed 3 days azithromycin 500 Mg p.o. daily [04/01 - 04/04] ?D5 ceftriaxone 1 g IV daily started on [04/01? ? Continue to monitor CBC ? Supplemental O2 as necessary 4. Asthma exacerbation - resolving On presentation patient was SOB associated with a productive cough for the past few days. His sick contacts were her both nephews who are sick at home with the flu. Patient's home medication nebulizer machine with albuterol solution as needed. Patient received 3 days of prednisone 20 Mg p.o. daily and is currently no longer complaining of SOB and has no wheeze heard on exam. Plan: ? DuoNebs every 6 hourly as needed ? Continue supplemental O2 as necessary 5. CKD stage V on hemodialysis via right femoral catheter Patient's baseline CR between 3?5. On this admission patient's CR 6.1. Most likely secondary to longstanding diabetic and hypertensive nephropathy. Nephrology, Dr. Livinsgton was consulted who recommended patient be started on hemodialysis. Hepatitis B, C were negative with hep B antibody nonreactive. PPD negative Patient was administered hepatitis B vaccine 04/04. Patient is for placement of internal jugular permanent catheter today and removal of femoral catheter. Once third session of dialysis is completed to liaise with dude wrangler, Dr. Jimenez to organize outpatient dates and plan for discharge. Plan: ? To organize with social worker delinquency prevention for outpatient chair time for dialysis ? For placement of internal jugular permanent catheter tomorrow and removal of temporary right femoral temporary catheter. ? Continue sevelamer 800 mg p.o. 3 times daily ? Continue hemodialysis as scheduled ? Avoid nephrotoxic agents ? Renally dose medications ? Nephrology consulted, appreciate recommendations 6. NAGMA?resolved On admission bicarb 14.7. Currently bicarb 27.8 7. IDDM type II [6.8] 8. Diabetic neuropathy 9. 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 History of chronic osteomyelitis right first digit Patient's home medication insulin glargine 38 units subcut at night and insulin HR as needed. Patient's HbA1c on admission 6.8. Foot x-ray was significant for right metacarpal joint osteomyelitis Plan: ? Continue insulin glargine 40 units SC at bedtime as long-acting insulin ? Continue insulin sliding scale to cover any glucose spikes ? Low consistent carb diet - Infectious disease recommended oral suppression as patient has been previously treated with IV antibiotics for osteomyelitis in 2022. - General surgery assessed patient and does not recommend any surgical intervention. Prescribed Santyl daily for wound care ? General Surgery was consulted, appreciate recommendations. ? Infectious disease was consulted, appreciate recommendations. 11. Essential hypertension On admission BP 173/90. Currently BP 118/64 Home medication amlodipine 2.5 Mg p.o. daily Plan: ? Continue nifedipine 30 Mg p.o. daily 12. Normocytic anemia On admission Hb 8.1. Currently Hb 6.7 DDx: RUTH ANN, blood loss anemia, anemia of chronic disease, thalassemia, lead poisoning. Iron panel significant for FE 12, TIBC 207, ferritin 219. Mixed picture of iron deficiency and anemia of chronic disease. Patient started on IV iron today Plan: - 1 unit PRBC ordered - Post transfusion H&H - Stool for occult blood ordered ? Continue IV iron started on [04/04? ? Recommend Epogen during HD sessions ? Continue to monitor CBC 13. Hypocalcemia- chronic On admission corrected Ca 7.2, currently corrected Ca 8.2 DDx: Hypoparathyroidism, vitamin D deficiency, acute renal failure, hypoalbuminemia, sepsis Most likely secondary to CKD stage V now requiring dialysis Calcium gluconate IV 10% x 1 given on 04/04 and 04/05 Plan: - Started patient on Calcium carbonate 1g po BIDWM ? Monitor calcium on CMP tomorrow 14. History of retinal detachment Follow-up outpatient with ophthalmology Health maintenance: Disposition: Pending outpatient chair time after discussion with Nephrololgist Diet: Consistent carb low, renal Lines: pIVs GI Prophylaxis: Protonix Thrombo Prophylaxis: Heparin Code status: FULL CODE Plan of care discussed with Attending Dr. Pagan and PGY2 Dr. Danny Barton MD PGY 1 Attending Provider Attestation/Addendum I have examined the patient, reviewed labs and imaging findings, discussed the case with the resident(s), and reviewed entered orders. I agree with the plan of care as outlined in this note, with these additional summaries/recommendations: # Acute hypoxic respiratory failure- Resolved # Community-acquired pneumonia # Asthma exacerbation- Improving Chest x-ray significant for bibasilar pneumonia Plan: Continue DuoNebs every 4 hrs as needed, S/P azithromycin and continue IV Rocephin. Slight improvement in WBC count today to 22.8 and likely still significantly elevated secondary to steroids. Continue daily hematology panel and IV abx. # Acute renal failure? ESRD Likely secondary to progression of underlying CKD from diabetic nephropathy and hypertensive nephrosclerosis Nephrology consulted, recommendations appreciated Status post right femoral temporary dialysis catheter 04/01/24 Plan: Status post hemodialysis 04/01 and 04/02 & 04/05. Case management notified to arrange outpatient chair time. Nephrology following. Patient will go for tunneled dialysis catheter today with IR. Continue to renally dose medications and avoid nephrotoxic agents. PPD negative. #Symptomatic Anemia #Normocytic Anemia MCV in 80s-90s. Iron 12, TIBC 207, Iron sat 5, Unsat iron binding 195, Ferritin 209 Plan: Likely multi-factorial 2/2 to AOCD +/- iron def +/- ABLA? Order FOBT. Appreciate nephro recs on Epogen. Order 1U PRBCs today 04/05 and follow-up post- transfusion H & H. # Diabetes Mellitus Type II with hyperglycemia Previously uncontrolled, most recent A1c 04/01/2024 6.8% Significant hyperglycemia likely secondary to steroids Target blood sugar of 140-180 while hospitalized Plan: BS improving, continue DM management #Chronic Osteomyelitis 08/26/23 MRI Right Foot: osteomyelitis distal first metatarsal and and proximal phalanx first digit plus osteomyelitis distal amputated second metatarsal 04/03/24 ESR 56 & CRP 5.2 Plan: XR confirmed osteomyelitis first metatarsophalangeal joint. Given chronicity of osteomyelitis and multiple extended courses of IV antibiotics in the past likely little benefit to proceed with additional course. Patient will need close outpatient follow-up with wound care. # Primary hypertension: Resume home antihypertensives as tolerated # History of retinal detachment: Follow-up outpatient with ophthalmology Dr. Pagan
--- NOTE | 2024-04-05 10:04 | PD.RESPRO ---
Documentation for date of: 04/05/24 Subjective Subjective Interval history: Patient seen and examined today. No acute events overnight. Patient had questions regarding dialysis, all questions were answered. Patient had verbal understanding. 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 Nose: No nasal discharge. Mouth/Throat: Dry mucous membranes, poor dentation no redness, no lesions. Neck: Neck supple, non-tender, no cervical lymphadenopathy. Lungs: Clear RONALD to auscultation and percussion, decreased AE at bases, No accessory muscle use. Cardio: Normal S1/S2, regular rhythm, no murmurs, no JVD Abdomen: Soft, non-tender, no palpable masses, peristalsis present, no guarding or rebound. Extremities L LE AKA, no peripheral edema , non-tender, peripheral pulses present R LE. Base of R foot ulcer, eschar, non purulent Skin: No rashes, no lesions, warm to touch. Neuro: No focal neurological deficits. motor and sensory intact Psych: Cooperative, appropriate mood and effect. Objective Labs 04/07/24 05:05 04/07/24 05:05 Labs: Laboratory Results - last 24 hr 04/05/24 04/05/24 04:42 08:04 WBC 22.8 H RBC 2.52 L Hgb 7.1 L 6.7 L* Hct 22.6 L 21.3 L* MCV 90 MCH 28.2 MCHC 31.4 RDW Std Deviation 47.6 H Plt Count 408 Neut % (Auto) 74 Lymph % (Auto) 19 Patrick % (Auto) 4 Eos % (Auto) 2 Baso % (Auto) 0 Neut # (Auto) 16.8 H Lymph # (Auto) 4.4 Patrick # (Auto) 1.0 H Eos # (Auto) 0.4 Baso # (Auto) 0.1 Immature Gran # (Auto) 0.15 H Absolute Nucleated RBC 0.02 H Immature Gran % 1 H Nucleated RBC % 0 PT 9.8 INR 0.9 Sodium 136 Potassium 3.7 Chloride 100 Carbon Dioxide 26.5 Anion Gap 10 BUN 43 H Creatinine 5.0 H* D Estim Creat Clear Calc 14.0 L eGFR 10 L* BUN/Creatinine Ratio 9 L Glucose 143 H D Calculated Osmolality 284 Calcium 7.9 L Corrected Calcium 8.3 L Phosphorus 4.0 Magnesium 2.3 Total Bilirubin 0.3 AST 30 ALT 31 Alkaline Phosphatase 98 D Total Protein 6.1 Albumin 3.5 Globulin 2.6 Albumin/Globulin Ratio 1.3 ABG Interpretation ABG results: 03/31/24 04/01/24 23:41 09:24 ABG pH 7.30 L 7.31 L ABG pCO2 31 L 31 L ABG pO2 171 H 98 D ABG HCO3 15 L 16 L ABG O2 Saturation 100 H 98 ABG Base Excess -10 L -10 L Quality Measures Quality Measures sepsis Current suspected stage: ruled out Possible source: pulmonary Blood cultures ordered: yes Antibiotic ordered: Yes Assessment & Plan Assessment Current Active Medications: Generic Name Dose Route Start Last Admin Trade Name Freq PRN Reason Stop Dose Admin Acetaminophen 650 mg 04/01/24 15:50 Acetaminophen 325 Mg Tablet PO 05/01/24 02:10 Q6H PRN PAIN(1-3) OR FEVER > 101 Hydrocodone Bitart/Acetaminophen 1 tab 04/01/24 15:48 04/04/24 20:21 Hydrocodone/Apap 5/325 Tablet PO 04/06/24 15:47 1 tab Q6HR PRN Administration PAIN SCALE 4-10(Mod-Sev Albuterol/Ipratropium 3 ml 04/02/24 11:02 Albuterol/Ipratropium (Duoneb) Rt Maggie 3 Ml Nebu INH 05/01/24 02:59 Q4HRRT PRN sob Collagenase 0 gm 04/04/24 13:30 04/04/24 13:30 Collagenase Oint 30 Gm Tube TOP 05/04/24 13:29 1 applicatio QDAY NASREEN Administration Cyclobenzaprine HCl 10 mg 04/03/24 21:00 04/04/24 20:21 Cyclobenzaprine 5 Mg Tablet PO 05/03/24 20:59 10 mg HS NASREEN Administration Dextrose 25 ml 04/01/24 02:16 Dextrose 50%-Water Inj 50 Ml Syringe IV 05/01/24 02:15 Q15MIN PRN BG 50-70 responsive npo pt Dextrose 50 ml 04/01/24 02:16 Dextrose 50%-Water Inj 50 Ml Syringe IV 05/01/24 02:15 Q15MIN PRN BG <50 OR BG <70 & pt unresponsive Glucagon 1 mg 04/01/24 02:16 Glucagon Inj 1 Mg Vial IM Q15MIN PRN BG <70, and no IV access Heparin Sodium (Porcine) 5,000 unit 04/01/24 06:00 04/05/24 05:18 Heparin Sod Inj 5000 Unit/Ml Vial SC 04/15/24 05:59 Not Given Q8HR NASREEN Heparin Sodium (Porcine) 2,500 unit 04/01/24 16:04 04/03/24 11:04 Heparin Sod Inj 1000 Unit/Ml Vial 10 Ml INDWELLCAT 04/15/24 16:03 2,500 unit X1 PRN Administration DIALYSIS Ceftriaxone Sodium/Dextrose 50 mls @ 100 mls/hr 04/01/24 21:00 04/04/24 20:21 Rocephin/D5w 1gm Iv Premix IV 04/08/24 20:59 100 mls/hr QPM NASREEN Administration Albumin Human 25 gm in 100 mls @ 100 mls/min 04/03/24 07:21 04/03/24 10:02 Albuminar-25 Ivpb IV 100 mls/min PRN PRN Administration DIALYSIS Ferric Sodium Gluconate 125 mg 110 mls @ 110 mls/hr 04/04/24 10:45 04/04/24 12:41 / Sodium Chloride IV 04/07/24 10:44 110 mls/hr QDAY NASREEN Administration Insulin Glargine 40 unit 04/05/24 21:00 Insulin Glargine (Lantus) 5 Unit/0.05 Ml (Per 5 Units) SC 05/05/24 20:59 HS NASREEN Insulin Human Lispro 0 unit 04/02/24 10:59 04/05/24 07:30 Insulin Lispro (Admelog) 1 Unit/0.01 Ml Unit SC 05/01/24 20:59 Not Given ACHS [facility] Protocol Melatonin 3 mg 04/03/24 02:45 04/04/24 20:22 Melatonin 3 Mg Tablet PO 05/03/24 02:44 3 mg HS NASREEN Administration Nifedipine 30 mg 04/03/24 09:00 04/04/24 08:31 Nifedipine Xl 30 Mg Tabcr PO 05/03/24 08:59 30 mg QDAY NASREEN Administration Ondansetron HCl 4 mg 04/01/24 02:11 04/04/24 17:27 Ondansetron Inj 2 Mg/Ml Inj 2 Ml IV 05/01/24 02:10 4 mg Q6H PRN Administration NAUSEA OR VOMITING Protocol Pantoprazole Sodium 40 mg 04/01/24 09:00 04/04/24 08:31 Pantoprazole 40 Mg Tablet PO 05/01/24 08:59 40 mg QDAY NASREEN Administration Sennosides 1 tab 04/01/24 09:00 04/04/24 08:32 Senna Tablet PO 05/01/24 08:59 1 tab QDAY NASREEN Administration Protocol Sevelamer Carbonate 800 mg 04/01/24 08:00 04/04/24 17:58 Sevelamer Carbonate 800 Mg Tablet PO 05/01/24 07:59 800 mg TIDWM NASREEN Administration Plan #Poorly controlled type 2 diabetes mellitus: #ESKD (end stage kidney disease): Pt has advanced kidney disease d/t uncontrolled DM Pt consented for dialysis Plan: will need TDC started on HD with temporary dialysis catheter - Patient's care was discussed with my attending physician, Dr. Miki Blue MD Internal Medicine PGY-3 Attending Provider Attestation/Addendum Agree with assessment and plan and findings. Seen and examined. labs reviewed. Plan discussed with resident. Bala Livingston MD
--- NOTE | 2024-04-05 10:12 | ESPR_ITS ---
Subjective Subjective Interval history: asked to see for cx neg osteo of foot. prior rx noted. 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 Objective - Internal Medicine Labs 04/05/24 08:04 04/05/24 04:42 Labs: Laboratory Results - last 24 hr 04/05/24 04/05/24 04:42 08:04 WBC 22.8 H RBC 2.52 L Hgb 7.1 L 6.7 L* Hct 22.6 L 21.3 L* MCV 90 MCH 28.2 MCHC 31.4 RDW Std Deviation 47.6 H Plt Count 408 Neut % (Auto) 74 Lymph % (Auto) 19 Gregg % (Auto) 4 Eos % (Auto) 2 Baso % (Auto) 0 Neut # (Auto) 16.8 H Lymph # (Auto) 4.4 Gregg # (Auto) 1.0 H Eos # (Auto) 0.4 Baso # (Auto) 0.1 Immature Gran # (Auto) 0.15 H Absolute Nucleated RBC 0.02 H Immature Gran % 1 H Nucleated RBC % 0 PT 9.8 INR 0.9 Sodium 136 Potassium 3.7 Chloride 100 Carbon Dioxide 26.5 Anion Gap 10 BUN 43 H Creatinine 5.0 H* D Estim Creat Clear Calc 14.0 L eGFR 10 L* BUN/Creatinine Ratio 9 L Glucose 143 H D Calculated Osmolality 284 Calcium 7.9 L Corrected Calcium 8.3 L Phosphorus 4.0 Magnesium 2.3 Total Bilirubin 0.3 AST 30 ALT 31 Alkaline Phosphatase 98 D Total Protein 6.1 Albumin 3.5 Globulin 2.6 Albumin/Globulin Ratio 1.3 ABG Interpretation ABG results: 03/31/24 04/01/24 23:41 09:24 ABG pH 7.30 L 7.31 L ABG pCO2 31 L 31 L ABG pO2 171 H 98 D ABG HCO3 15 L 16 L ABG O2 Saturation 100 H 98 ABG Base Excess -10 L -10 L Assessment & Plan A&P Narrative chronic osteo of foot dm II ckd 5 will see on fri and look at options. prior iv rx noted in 2022, about a year ago. so may favor oral suppression if it is the same area. hiv neg in 2021 and hep c neg this admit Time Spent With Patient Time: Total time spent is greater than 50% in coordination of care (as documented) at patient's floor/unit and/or counseling patient:
--- NOTE | 2024-04-05 10:20 | PC.SS ---
SS follow up note; SS contacted AQUILES in [place] to check status on chair time, Ivelisse informed SS that chair time was still pending.
[2024-04-05] MEDS: HEPARIN SOD INJ 1000 UNIT/ML VIAL 3500 UNIT INDWELLCAT (12:17)
[2024-04-05] MEDS: HEPARIN SOD LOCK SYR 100 UNIT/ML 500 UNIT STFIELD (12:17)
[2024-04-05] MEDS: LIDOCAINE INJ PF 1% 30 ML VIAL 9 ML INFL (12:17)
[2024-04-05] MEDS: fentaNYL CIT INJ 50 mCg/ML AMP 2ML IVP (12:17)
[2024-04-05] MEDS: FERRIC SOD GLUC INJ 125 MG in SODIUM CHLORIDE 0.9% 100 ML 110 MG IV (14:30)
--- NOTE | 2024-04-05 14:32 | ESCONSULT_ITS ---
RE: ELVIA FLORES : 1980 DATE OF CONSULTATION: 04/04/2024 REFERRING PHYSICIAN: Dr. San. REASON FOR CONSULTATION: Diabetes, chronic kidney disease, and osteomyelitis of the foot on a chronic basis. HISTORY OF PRESENT ILLNESS: The patient is a 43-year-old who I last saw in May of about 2021. There are no photographs of the foot available. Her records suggest prior treatment for this same process a couple of years ago or about a year ago. 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 If there are other surgeries, I will have to ask her about it. She is also diabetic. A1c is currently 6.8, but usually above 10. She is on dialysis and has a substance use history as well. ALLERGIES: NOTED. IMMUNIZATIONS: Unavailable. FAMILY HISTORY: Positive for diabetes, hypertension, and cancer in various relatives. SOCIAL HISTORY: She is a nonsmoker and has a substance abuse history as noted. If we verify that she has had prior treatment for osteomyelitis then we can probably just give her oral suppression. We will reevaluate her in a few days as she is out for a procedure. DT: 12:04:09 TT: 13:04:00 Ref: [id number] - TID: [id number] MTDSrinath
[2024-04-05] MEDS: INSULIN LISPRO (AdmeLOG) 1 UNIT/0.01 ML UNIT SC ×2 (17:53→21:16)
[2024-04-05] MEDS: SEVELAMER CARBONATE 800 MG TABLET PO (17:54)
[2024-04-05] MEDS: MELATONIN 3 MG TABLET PO (21:08)
[2024-04-05] MEDS: CYCLObenzaPRINE 5 MG TABLET 10 MG PO (21:08)
[2024-04-05] MEDS: HYDROcodone/APAP 5/325 TABLET 1 TAB PO (21:08)
[2024-04-05] MEDS: HEPARIN SOD INJ 5000 UNIT/ML VIAL SC (21:12)
[2024-04-05] MEDS: INSULIN GLARGINE (Lantus) 5 UNIT/0.05 ML (PER 5 UNITS) 40 UNIT SC (21:17)
[2024-04-05 21:45] LABS: Hematocrit 26.9 % (36.0-46.0); Hemoglobin 8.6 g/dL (12.0-16.0)
[2024-04-06] VITALS (26 sets, daily range): BP systolic 93–175; BP diastolic 54–102; PULSE 74–99; RESP 13–98; TEMP 35.9–36.4; O2SAT 95–98
--- NOTE | 2024-04-06 | XR_ITS ---
Examination: Venous access removal temporary dialysis catheter Exam date and time: April 06, 2000 2412 noon INDICATIONS: No longer needed for temporary dialysis catheter TECHNIQUE AND FINDINGS: Informed consent provided. Timeout performed. Skin prepped over the entrance site of a temporary dialysis catheter Successful removal with direct pressure applied for control of hemostasis No blood loss IMPRESSION: Successful venous access removal temporary dialysis catheter
[2024-04-06 06:01] LABS: Basophils # (Auto) 0.1 Thou/mm3 (0.0-0.2); Basophils % (Auto) 0 % (0-2.5); Eosinophils # (Auto) 0.5 Thou/mm3 (0.0-0.5); Eosinophils % (Auto) 2 % (0-10); Hematocrit 26.3 % (36.0-46.0); Immature Granulocytes % (Auto) 1 % (0-0); Immature Granulocytes Auto 0.27 Thou/mm3 (0.00-0.00); Lymphocytes % (Auto) 21 % (10-50); Mean Corpuscular HGB Conc 31.9 g/dl (31.0-37.0); Mean Corpuscular Hemoglobin 28.7 pg (25.0-35.0); Mean Corpuscular Volume 90 fL (80-100); Monocytes # (Auto) 1.2 Thou/mm3 (0.0-0.8); Monocytes % (Auto) 5 % (0-12); Neutrophils # (Auto) 17.2 Thou/mm3 (1.8-7.7); Neutrophils % (Auto) 71 % (37-80); Nucleated Red Blood Cell % 0 /100 WBC (0); Platelet Count 406 Thou/mm3 (140-440); RDW Standard Deviation 47.1 fL (36.4-46.3); Red Blood Count 2.93 Miln/mm3 (4.00-5.20)
[2024-04-06 06:09] LABS: Hemoglobin 8.4 g/dL (12.0-16.0); White Blood Count 24.3 Thou/mm3 (3.6-11.0)
[2024-04-06 06:50] LABS: Alanine Aminotransferase 43 U/L (10-49); Albumin, Serum 3.4 gm/dL (3.5-5.0); Albumin/Globulin Ratio 1.3 (1.2-2.2); Alkaline Phosphatase 118 U/L (46-116); Anion Gap 12 (7-16); Aspartate Amino Transferase 36 U/L (0-34); BUN/Creatinine Ratio 9 Ratio (12-20); Bilirubin,Total 0.4 mg/dL (0.3-1.2); Blood Urea Nitrogen 48 mg/dL (9-23); Calcium (Corrected) 8.5 mg/dL (8.5-10.1); Carbon Dioxide 25.4 mMol/L (20.0-31.0); Chloride 101 mMol/L (98-107); Creatinine (Component) 5.4 mg/dL (0.6-1.3); Estimated Creatinine Clearance 13.3 mL/min (>60); Globulin 2.7 gm/dL (2.3-3.5); Magnesium 2.1 mg/dL (1.6-2.6); Osmolality,Calculated 285 (275-295); Phosphorous 4.4 mg/dL (2.4-5.1); Potassium 3.8 mMol/L (3.4-5.1); Sodium 138 mMol/L (136-145); Total Protein 6.1 gm/dL (5.7-8.2); eGFR 9 See Note
[2024-04-06 06:59] LABS: Glucose 44 mg/dL (74-106)
[2024-04-06] MEDS: DEXTROSE 50%-WATER INJ 50 ML SYRINGE 25 ML IV (07:09)
--- NOTE | 2024-04-06 09:19 | ESPR_ITS ---
Documentation for date of: 04/06/24 Subjective Subjective Interval history: Patient seen and examined today during dialysis. No acute events overnight. Pending HD chair placement. 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 Cardio: Normal S1/S2, regular rhythm, no murmurs, no JVD Abdomen: Soft, non-tender, no palpable masses, peristalsis present, no guarding or rebound. Extremities L LE AKA, no peripheral edema , non-tender, peripheral pulses present R LE. Base of R foot ulcer, eschar, non purulent Skin: No rashes, no lesions, warm to touch. Neuro: No focal neurological deficits. motor and sensory intact Objective Labs 04/07/24 05:05 04/07/24 05:05 Labs: Laboratory Results - last 24 hr 04/05/24 04/05/24 04/06/24 13:04 20:34 05:27 WBC 24.3 H RBC 2.93 L Hgb 8.6 L D 8.4 L Hct 26.9 L 26.3 L MCV 90 MCH 28.7 MCHC 31.9 RDW Std Deviation 47.1 H Plt Count 406 Neut % (Auto) 71 Lymph % (Auto) 21 [place] % (Auto) 5 Eos % (Auto) 2 Baso % (Auto) 0 Neut # (Auto) 17.2 H Lymph # (Auto) 5.0 H [place] # (Auto) 1.2 H Eos # (Auto) 0.5 Baso # (Auto) 0.1 Immature Gran # (Auto) 0.27 H Absolute Nucleated RBC 0.00 Immature Gran % 1 H Nucleated RBC % 0 Sodium 138 Potassium 3.8 Chloride 101 Carbon Dioxide 25.4 Anion Gap 12 BUN 48 H Creatinine 5.4 H* Estim Creat Clear Calc 13.3 L eGFR 9 L* BUN/Creatinine Ratio 9 L Glucose 44 L* D Calculated Osmolality 285 Calcium 8.0 L Corrected Calcium 8.5 Phosphorus 4.4 Magnesium 2.1 Total Bilirubin 0.4 AST 36 H ALT 43 Alkaline Phosphatase 118 H D Total Protein 6.1 Albumin 3.4 L Globulin 2.7 Albumin/Globulin Ratio 1.3 Blood Type O Positive Antibody Screen NEGATIVE Crossmatch See Detail Blood Bank Wristband ID Yes ABG Interpretation ABG results: 03/31/24 04/01/24 23:41 09:24 ABG pH 7.30 L 7.31 L ABG pCO2 31 L 31 L ABG pO2 171 H 98 D ABG HCO3 15 L 16 L ABG O2 Saturation 100 H 98 ABG Base Excess -10 L -10 L Quality Measures Quality Measures sepsis Current suspected stage: ruled out Possible source: pulmonary Blood cultures ordered: yes Antibiotic ordered: Yes Assessment & Plan Assessment Current Active Medications: Generic Name Dose Route Start Last Admin Trade Name Freq PRN Reason Stop Dose Admin Acetaminophen 650 mg 04/01/24 15:50 Acetaminophen 325 Mg Tablet PO 05/01/24 02:10 Q6H PRN PAIN(1-3) OR FEVER > 101 Hydrocodone Bitart/Acetaminophen 1 tab 04/01/24 15:48 04/05/24 21:08 Hydrocodone/Apap 5/325 Tablet PO 04/06/24 15:47 1 tab Q6HR PRN Administration PAIN SCALE 4-10(Mod-Sev Albuterol/Ipratropium 3 ml 04/02/24 11:02 Albuterol/Ipratropium (Duoneb) Rt Maggie 3 Ml Nebu INH 05/01/24 02:59 Q4HRRT PRN sob Calcium Carbonate 1,000 mg 04/06/24 08:00 Calcium Carbonate 500 Mg Chew PO 05/06/24 07:59 BIDWM NASREEN Collagenase 0 gm 04/04/24 13:30 04/05/24 09:00 Collagenase Oint 30 Gm Tube TOP 05/04/24 13:29 1 applicatio QDAY NASREEN Administration Cyclobenzaprine HCl 10 mg 04/03/24 21:00 04/05/24 21:08 Cyclobenzaprine 5 Mg Tablet PO 05/03/24 20:59 10 mg HS NASREEN Administration Dextrose 25 ml 04/01/24 02:16 04/06/24 07:09 Dextrose 50%-Water Inj 50 Ml Syringe IV 05/01/24 02:15 25 ml Q15MIN PRN Administration BG 50-70 responsive npo pt Dextrose 50 ml 04/01/24 02:16 Dextrose 50%-Water Inj 50 Ml Syringe IV 05/01/24 02:15 Q15MIN PRN BG <50 OR BG <70 & pt unresponsive Glucagon 1 mg 04/01/24 02:16 Glucagon Inj 1 Mg Vial IM Q15MIN PRN BG <70, and no IV access Heparin Sodium (Porcine) 5,000 unit 04/01/24 06:00 04/06/24 05:48 Heparin Sod Inj 5000 Unit/Ml Vial SC 04/15/24 05:59 Not Given Q8HR [facility] Heparin Sodium (Porcine) 2,500 unit 04/01/24 16:04 04/03/24 11:04 Heparin Sod Inj 1000 Unit/Ml Vial 10 Ml INDWELLCAT 04/15/24 16:03 2,500 unit X1 PRN Administration DIALYSIS Albumin Human 25 gm in 100 mls @ 100 mls/min 04/03/24 07:21 04/03/24 10:02 Albuminar-25 Ivpb IV 100 mls/min PRN PRN Administration DIALYSIS Ferric Sodium Gluconate 125 mg 110 mls @ 110 mls/hr 04/04/24 10:45 04/05/24 14:30 / Sodium Chloride IV 04/07/24 10:44 110 mls/hr QDAY NASREEN Administration Ceftriaxone Sodium 2 gm/ 50 mls @ 100 mls/hr 04/06/24 09:00 Sodium Chloride IV 04/13/24 08:59 QDAY [facility] Insulin Glargine 30 unit 04/06/24 21:00 Insulin Glargine (Lantus) 5 Unit/0.05 Ml (Per 5 Units) SC 05/06/24 20:59 HS [facility] Insulin Human Lispro 0 unit 04/02/24 10:59 04/06/24 08:56 Insulin Lispro (Admelog) 1 Unit/0.01 Ml Unit SC 05/01/24 20:59 Not Given ACHS [facility] Protocol Melatonin 3 mg 04/03/24 02:45 04/05/24 21:08 Melatonin 3 Mg Tablet PO 05/03/24 02:44 3 mg HS NASREEN Administration Nifedipine 30 mg 04/03/24 09:00 04/05/24 09:00 Nifedipine Xl 30 Mg Tabcr PO 05/03/24 08:59 Not Given QDAY NASREEN Ondansetron HCl 4 mg 04/01/24 02:11 04/04/24 17:27 Ondansetron Inj 2 Mg/Ml Inj 2 Ml IV 05/01/24 02:10 4 mg Q6H PRN Administration NAUSEA OR VOMITING Protocol Pantoprazole Sodium 40 mg 04/01/24 09:00 04/05/24 09:00 Pantoprazole 40 Mg Tablet PO 05/01/24 08:59 Not Given QDAY NASREEN Sennosides 1 tab 04/01/24 09:00 04/05/24 09:00 Senna Tablet PO 05/01/24 08:59 Not Given QDAY NASREEN Protocol Sevelamer Carbonate 800 mg 04/01/24 08:00 04/05/24 17:54 Sevelamer Carbonate 800 Mg Tablet PO 05/01/24 07:59 800 mg TIDWM NASREEN Administration Plan #Poorly controlled type 2 diabetes mellitus: #ESKD (end stage kidney disease): Pt has advanced kidney disease d/t uncontrolled DM Pt consented for dialysis S/p TDC Plan: -cont dialysis through TDC -pending HD chair -cont phos binder - Patient's care was discussed with my attending physician, Dr. Miki Blue MD Internal Medicine PGY-3 Attending Provider Attestation/Addendum Agree with assessment and plan and findings. Seen and examined. labs reviewed. Plan discussed with resident. Bala Livingston MD
[2024-04-06] MEDS: EPOETIN ALFA-EPBX INJ 10,000 UNIT/ML VIAL (ESRD) 10000 UNIT SC (09:21)
--- NOTE | 2024-04-06 10:41 | PC.SS ---
SS was contacted by [facility] in [place] and they informed SS that Corporate office did not authorize patient due to patient's insurance not being contracted with facility. SS updated Team A. SS requested Team A to order all three Hep Panels: Antigen Surface, Total Core Antibody and Surface Antibody, which [facility] is very specific in obtaining to establish chair time. SS submitted all requested clinical information through [employer]. SS met with patient to inform her that [facility] will be next choice of facility due to [facility] in [place] not contracted with her insurance, Patient verbalized understanding and informed SS that first choice of facility would be [facility], and second choice would be [facility]. SS will standby for further needs.
[2024-04-06] MEDS: HEPARIN SOD INJ 1000 UNIT/ML VIAL 10 ML 3500 UNIT INDWELLCAT (11:05)
[2024-04-06] MEDS: SEVELAMER CARBONATE 800 MG TABLET PO (11:49)
[2024-04-06] MEDS: PANTOPRAZOLE 40 MG TABLET PO (11:49)
[2024-04-06] MEDS: NIFEdipine XL 30 MG TABCR PO (11:49)
[2024-04-06] MEDS: SENNA TABLET 1 TAB PO (11:50)
[2024-04-06] MEDS: LACTULOSE SYRUP 20 GM/30 ML UDC 10 GM PO (11:50)
[2024-04-06] MEDS: cefTRIAXone 2 GM in SODIUM CHLORIDE 0.9% (P) 50 ML IV (11:52)
[2024-04-06] MEDS: COLLAGENASE OINT 30 GM TUBE TOP (12:17)
[2024-04-06 12:34] LABS: Hepatitis B Surface Ab NonReact(Not Immune) (Immune)
[2024-04-06 12:50] LABS: Hepatitis B Surface Antigen Non Reactive (Non React)
[2024-04-06] MEDS: FERRIC SOD GLUC INJ 125 MG in SODIUM CHLORIDE 0.9% 100 ML 110 MG IV (12:50)
[2024-04-06 13:14] LABS: Hepatitis A Antibody IgM Non Reactive (Non React); Hepatitis B Core Antibody IgM Non Reactive (Non React); Hepatitis B Surface Antigen Non Reactive (Non React); Hepatitis C Antibody Non Reactive (Non React)
[2024-04-06] MEDS: HEPARIN SOD INJ 5000 UNIT/ML VIAL SC ×2 (14:27→21:36)
--- NOTE | 2024-04-06 15:29 | ESPR_ITS ---
<Statement entered by Charles Kathleen MD - 04/06/24 16:14> Patient was seen and examined at the bedside. Patient was seen in dialysis and was doing fine. We are awaiting on insurance authorization. We sent out hep panel for insurance reauthorization. Lantus was reduced to 30 units every day. Blood pressure remained stable. All labs and orders were reviewed. I saw and examined the patient, and I agree with current management stated by Dr Gavin MD,PGY1. Plan of care was discussed with the attending physician and resident physician. Disclaimer: Despite multiple revisions, due to the dictation software being used, the document bellow may not be free of grammatical errors including phonetic/typographic errors. However, this does not deter from our commitment to providing health care in the patient's best interest in mind. Dr. Danny MD, PGY 2 Documentation for date of: 04/06/24 Subjective Subjective Interval history: Patient was seen and examined at bedside this AM. No acute exents overnight. Patient tolerating diet, adequate urine output and mentation is at baseline. Patient endorses improvement of her SOB and is currently on room air Patient's Hb 8.4 this morning post 1 unit PRBC 04/05 This a.m. patient's fasting blood glucose 44 and she received 50 mL of 50% dextrose after which it improved to 145 Will decrease insulin glargine to 30 units at bedtime from 40 units at bedtime Patient on IV iron started on [04/04 - Also on Neupogen during dialysis sessions Patient had placement of right IJ PermCath yesterday and removal of femoral temporary catheter today Hepatitis B core IgM ordered as this is a requirement for outpatient dialysis at the center her insurance approved ESR and CRP ordered Exam Vital Signs Temp Pulse Resp BP Pulse Ox O2 Del Method O2 Flow Rate 96.6 F L 89 18 118/68 95 Room Air 0.5 04/06/24 12:00 04/06/24 12:00 04/06/24 12:04/06/24 12:00 04/06/24 12:04/06/24 12:04/06/24 07:10 Narrative Exam General: A/O x3, no acute distress, obese 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 Nose: No nasal discharge. Mouth/Throat: Dry mucous membranes, poor dentation no redness, no lesions. Neck: Neck supple, non-tender, no cervical lymphadenopathy. Lungs: Clear RONALD to auscultation and percussion, No accessory muscle use. RIJ catheter insitu. Exit site clean Cardio: Normal S1/S2, regular rhythm, no murmurs, no JVD Abdomen: Soft, non-tender, no palpable masses, peristalsis present, no guarding or rebound. Extremities L LE AKA, no peripheral edema , non-tender, peripheral pulses present R LE. Base of R foot ulcer, eschar, non purulent Skin: No rashes, no lesions, warm to touch. Neuro: No focal neurological deficits. motor and sensory intact Psych: Cooperative, appropriate mood and effect. Objective Labs 04/06/24 05:27 04/06/24 05:27 Labs: Laboratory Results - last 24 hr 04/05/24 04/05/24 04/06/24 13:04 20:34 05:27 WBC 24.3 H RBC 2.93 L Hgb 8.6 L D 8.4 L Hct 26.9 L 26.3 L MCV 90 MCH 28.7 MCHC 31.9 RDW Std Deviation 47.1 H Plt Count 406 Neut % (Auto) 71 Lymph % (Auto) 21 [place] % (Auto) 5 Eos % (Auto) 2 Baso % (Auto) 0 Neut # (Auto) 17.2 H Lymph # (Auto) 5.0 H [place] # (Auto) 1.2 H Eos # (Auto) 0.5 Baso # (Auto) 0.1 Immature Gran # (Auto) 0.27 H Absolute Nucleated RBC 0.00 Immature Gran % 1 H Nucleated RBC % 0 Sodium 138 Potassium 3.8 Chloride 101 Carbon Dioxide 25.4 Anion Gap 12 BUN 48 H Creatinine 5.4 H* Estim Creat Clear Calc 13.3 L eGFR 9 L* BUN/Creatinine Ratio 9 L Glucose 44 L* D Calculated Osmolality 285 Calcium 8.0 L Corrected Calcium 8.5 Phosphorus 4.4 Magnesium 2.1 Total Bilirubin 0.4 AST 36 H ALT 43 Alkaline Phosphatase 118 H D Total Protein 6.1 Albumin 3.4 L Globulin 2.7 Albumin/Globulin Ratio 1.3 Hepatitis A IgM Ab Hep Bs Antigen Hep Bs Antibody Hep B Core IgM Ab Hepatitis C Antibody Blood Type O Positive Antibody Screen NEGATIVE Crossmatch See Detail Blood Bank Wristband ID Yes 04/06/24 04/06/24 11:41 11:41 WBC RBC Hgb Hct MCV MCH MCHC RDW Std Deviation Plt Count Neut % (Auto) Lymph % (Auto) [place] % (Auto) Eos % (Auto) Baso % (Auto) Neut # (Auto) Lymph # (Auto) [place] # (Auto) Eos # (Auto) Baso # (Auto) Immature Gran # (Auto) Absolute Nucleated RBC Immature Gran % Nucleated RBC % Sodium Potassium Chloride Carbon Dioxide Anion Gap BUN Creatinine Estim Creat Clear Calc eGFR BUN/Creatinine Ratio Glucose Calculated Osmolality Calcium Corrected Calcium Phosphorus Magnesium Total Bilirubin AST ALT Alkaline Phosphatase Total Protein Albumin Globulin Albumin/Globulin Ratio Hepatitis A IgM Ab Non Reactive Hep Bs Antigen Non Reactive Non Reactive Hep Bs Antibody NonReact(Not Immune) L Hep B Core IgM Ab Non Reactive Hepatitis C Antibody Non Reactive Blood Type Antibody Screen Crossmatch Blood Bank Wristband ID ABG Interpretation ABG results: 03/31/24 04/01/24 23:41 09:24 ABG pH 7.30 L 7.31 L ABG pCO2 31 L 31 L ABG pO2 171 H 98 D ABG HCO3 15 L 16 L ABG O2 Saturation 100 H 98 ABG Base Excess -10 L -10 L Quality Measures Quality Measures sepsis Current suspected stage: sepsis Possible source: pulmonary Blood cultures ordered: yes Antibiotic ordered: Yes Assessment & Plan Assessment Current Active Medications: Generic Name Dose Route Start Last Admin Trade Name Freq PRN Reason Stop Dose Admin Acetaminophen 650 mg 04/01/24 15:50 Acetaminophen 325 Mg Tablet PO 05/01/24 02:10 Q6H PRN PAIN(1-3) OR FEVER > 101 Hydrocodone Bitart/Acetaminophen 1 tab 04/01/24 15:48 04/05/24 21:08 Hydrocodone/Apap 5/325 Tablet PO 04/06/24 15:47 1 tab Q6HR PRN Administration PAIN SCALE 4-10(Mod-Sev Albuterol/Ipratropium 3 ml 04/02/24 11:02 Albuterol/Ipratropium (Duoneb) Rt Maggie 3 Ml Nebu INH 05/01/24 02:59 Q4HRRT PRN sob Calcium Acetate 667 mg 04/06/24 17:30 Calcium Acetate 667 Mg Tablet PO 05/06/24 17:29 TIDWM NASREEN Collagenase 0 gm 04/04/24 13:30 04/06/24 12:17 Collagenase Oint 30 Gm Tube TOP 05/04/24 13:29 1 applicatio QDAY NASREEN Administration Cyclobenzaprine HCl 10 mg 04/03/24 21:00 04/05/24 21:08 Cyclobenzaprine 5 Mg Tablet PO 05/03/24 20:59 10 mg HS NASREEN Administration Dextrose 25 ml 04/01/24 02:16 04/06/24 07:09 Dextrose 50%-Water Inj 50 Ml Syringe IV 05/01/24 02:15 25 ml Q15MIN PRN Administration BG 50-70 responsive npo pt Dextrose 50 ml 04/01/24 02:16 Dextrose 50%-Water Inj 50 Ml Syringe IV 05/01/24 02:15 Q15MIN PRN BG <50 OR BG <70 & pt unresponsive Glucagon 1 mg 04/01/24 02:16 Glucagon Inj 1 Mg Vial IM Q15MIN PRN BG <70, and no IV access Heparin Sodium (Porcine) 5,000 unit 04/01/24 06:00 04/06/24 14:27 Heparin Sod Inj 5000 Unit/Ml Vial SC 04/15/24 05:59 5,000 unit Q8HR NASREEN Administration Heparin Sodium (Porcine) 3,500 unit 04/06/24 10:34 04/06/24 11:05 Heparin Sod Inj 1000 Unit/Ml Vial 10 Ml INDWELLCAT 04/11/24 10:33 3,500 unit X1 PRN Administration DIALYSIS Albumin Human 25 gm in 100 mls @ 100 mls/min 04/03/24 07:21 04/03/24 10:02 Albuminar-25 Ivpb IV 100 mls/min PRN PRN Administration DIALYSIS Ferric Sodium Gluconate 125 mg 110 mls @ 110 mls/hr 04/04/24 10:45 04/06/24 12:50 / Sodium Chloride IV 04/07/24 10:44 110 mls/hr QDAY NASREEN Administration Insulin Glargine 30 unit 04/06/24 21:00 Insulin Glargine (Lantus) 5 Unit/0.05 Ml (Per 5 Units) SC 05/06/24 20:59 HS NASREEN Insulin Human Lispro 0 unit 04/02/24 10:59 04/06/24 12:13 Insulin Lispro (Admelog) 1 Unit/0.01 Ml Unit SC 05/01/24 20:59 Not Given ACHS NASREEN Protocol Melatonin 3 mg 04/03/24 02:45 04/05/24 21:08 Melatonin 3 Mg Tablet PO 05/03/24 02:44 3 mg HS NASREEN Administration Nifedipine 30 mg 04/03/24 09:00 04/06/24 11:49 Nifedipine Xl 30 Mg Tabcr PO 05/03/24 08:59 30 mg QDAY NASREEN Administration Ondansetron HCl 4 mg 04/01/24 02:11 04/04/24 17:27 Ondansetron Inj 2 Mg/Ml Inj 2 Ml IV 05/01/24 02:10 4 mg Q6H PRN Administration NAUSEA OR VOMITING Protocol Pantoprazole Sodium 40 mg 04/01/24 09:00 04/06/24 11:49 Pantoprazole 40 Mg Tablet PO 05/01/24 08:59 40 mg QDAY NASREEN Administration Sennosides 1 tab 04/01/24 09:00 04/06/24 11:50 Senna Tablet PO 05/01/24 08:59 1 tab QDAY NASREEN Administration Protocol Plan Patient is a 43-year-old female past medical history of essential hypertension, IDDM [6.8], diabetic neuropathy s/p left AKA, chronic osteomyelitis of right first metatarsal and proximal phalanx of first digit and second distal metatarsal amputation, CKD stage V and asthma. Presented to the ED with a chief complaint of SOB and was admitted for acute respiratory failure with hypoxia secondary to sepsis due to CAP versus asthma exacerbation. 1. Acute respiratory failure with hypoxia Secondary to 2. Sepsis secondary to suspected GNR pneumonia versus asthma exacerbation?resolving 3. Community-acquired pneumonia 4. Leukocytosis - worsening Patient had SOB on admission and a history of sick contacts, her nephews. Associated with generalized weakness, body aches and productive cough. On exam patient mild wheezing. On admission patient met SIRS 2/4 for HR 113 and WBC 18.3 Source of infection CAP Chest x-ray was significant for bibasilar consolidation, no pleural effusion, pulmonary edema. Patient was started on hemodialysis this admission a sign of end organ damage Blood and urine cultures taken on 03/31 were both negative. Influenza A and B were also both negative Patient received 3 days of prednisone 20 Mg p.o. daily discontinued on 04/03. Leukocytosis most likely secondary to steroid use and chronic osteomyelitis Patient endorses improvement of her SOB and is currently on 2L O2 via NC. Plan: ? Completed 3 days azithromycin 500 Mg p.o. daily [04/01 - 04/04] ? Completed 5 days ceftriaxone 1 g IV daily started on [04/01?03/06] ? Continue to monitor CBC ? Supplemental O2 as necessary 4. Asthma exacerbation -resolved On presentation patient was SOB associated with a productive cough for the past few days. His sick contacts were her both nephews who are sick at home with the flu. Patient's home medication nebulizer machine with albuterol solution as needed. Patient received 3 days of prednisone 20 Mg p.o. daily and is currently no longer complaining of SOB and has no wheeze heard on exam. Plan: ? DuoNebs every 6 hourly as needed ? Continue supplemental O2 as necessary 5. CKD stage V on hemodialysis via right femoral catheter Patient's baseline CR between 3?5. On this admission patient's CR 6.1. Most likely secondary to longstanding diabetic and hypertensive nephropathy. Nephrology, Dr. Livingston was consulted who recommended patient be started on hemodialysis. Hepatitis B, C were negative with hep B antibody nonreactive. PPD negative Patient was administered hepatitis B vaccine 04/04. Patient on IV iron started on [04/04 - Also on Neupogen during dialysis sessions Patient had placement of right IJ PermCath 04/05 and removal of femoral temporary catheter 04/06 Hepatitis B core IgM ordered as this is a requirement for outpatient dialysis at the center her insurance approved ESR and CRP ordered Plan: ? 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 Hepatitis B core IgM ordered ? ESR and CRP ordered ? Continue sevelamer 800 mg p.o. 3 times daily ? Continue hemodialysis as scheduled ? Avoid nephrotoxic agents ? Renally dose medications ? Nephrology consulted, appreciate recommendations 6. NAGMA?resolved On admission bicarb 14.7. Currently bicarb 27.8 7. IDDM type II [6.8] 8. Diabetic neuropathy 9. 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 History of chronic osteomyelitis right first digit Patient's home medication insulin glargine 38 units subcut at night and insulin HR as needed. Patient's HbA1c on admission 6.8. Foot x-ray was significant for right metacarpal joint osteomyelitis This a.m. patient's fasting blood glucose 44 and she received 50 mL of 50% dextrose after which it improved to 145 Will decrease insulin glargine to 30 units at bedtime from 40 units at bedtime Plan: - Will decrease insulin glargine to 30 units at bedtime from 40 units at bedtime ? Continue insulin sliding scale to cover any glucose spikes ? Low consistent carb diet - Infectious disease recommended oral suppression as patient has been previously treated with IV antibiotics for osteomyelitis in 2022. - General surgery assessed patient and does not recommend any surgical intervention. Prescribed Santyl daily for wound care ? General Surgery was consulted, appreciate recommendations. ? Infectious disease was consulted, appreciate recommendations. 11. Essential hypertension On admission BP 173/90. Currently BP 161/89 Home medication amlodipine 2.5 Mg p.o. daily Plan: ? Continue nifedipine 30 Mg p.o. daily 12. Normocytic anemia On admission Hb 8.1. Currently Hb 8.4 DDx: RUTH ANN, blood loss anemia, anemia of chronic disease, thalassemia, lead poisoning. Iron panel significant for FE 12, TIBC 207, ferritin 219. Mixed picture of iron deficiency and anemia of chronic disease. Patient started on IV iron today Patient's Hb 8.4 this morning post 1 unit PRBC 04/05 Plan: - Stool for occult blood ordered ? Continue IV iron started on [04/04? ? Started Epogen during HD sessions ? Continue to monitor CBC 13. Hypocalcemia- chronic On admission corrected Ca 7.2, currently corrected Ca 8.2 DDx: Hypoparathyroidism, vitamin D deficiency, acute renal failure, hypoalbuminemia, sepsis Most likely secondary to CKD stage V now requiring dialysis Calcium gluconate IV 10% x 1 given on 04/04 and 04/05 Plan: - Discontinued calcium carbonate 1g po BIDWM ? Started on calcium acetate 667 g p.o. 3 times daily WM as patient is CKD on HD and also at risk of hyperphosphatemia. Calcium acetate also helps to lower serum phosphorus ? Monitor calcium on CMP tomorrow 14. History of retinal detachment Follow-up outpatient with ophthalmology Health maintenance: Disposition: Pending outpatient chair time once hep B core antibody results available Diet: Consistent carb low, renal Lines: pIVs GI Prophylaxis: Protonix Thrombo Prophylaxis: Heparin Code status: FULL CODE Plan of care discussed with Attending Dr. Pagan and PGY2 Dr. Danny Barton MD PGY 1 Attending Provider Attestation/Addendum I have examined the patient, reviewed labs and imaging findings, discussed the case with the resident(s), and reviewed entered orders. I agree with the plan of care as outlined in this note, with these additional summaries/recommendations: # Acute hypoxic respiratory failure- Resolved # Community-acquired pneumonia # Asthma exacerbation- Improving Chest x-ray significant for bibasilar pneumonia, likely GNRs Plan: Continue DuoNebs every 4 hrs as needed. S/P abx course for pneumonia. Leukocytosis persists although likely secondary to steroid usage. Repeat hematology panel in am. # ESRD Likely secondary to progression of underlying CKD from diabetic nephropathy and hypertensive nephrosclerosis Nephrology consulted, recommendations appreciated Status post right femoral temporary dialysis catheter 04/01/24 Plan: Received tunneled dialysis catheter. Pending outpatient chair time and further hepatitis B serology before patient can be safely discharged. #Symptomatic Anemia #Normocytic Anemia MCV in 80s-90s. Iron 12, TIBC 207, Iron sat 5, Unsat iron binding 195, Ferritin 209 Plan: Likely multi-factorial 2/2 to AOCD +/- iron def +/- ABLA? Order FOBT. Appreciate nephro recs on Epogen. Order 1U PRBCs / and hemoglobin stable at 8.4 today # Diabetes Mellitus Type II with hyperglycemia Previously uncontrolled, most recent A1c 04/01/2024 6.8% Significant hyperglycemia likely secondary to steroids Target blood sugar of 140-180 while hospitalized Plan: BS improving, continue DM management #Chronic Osteomyelitis 08/26/23 MRI Right Foot: osteomyelitis distal first metatarsal and and proximal phalanx first digit plus osteomyelitis distal amputated second metatarsal 04/03/24 ESR 56 & CRP 5.2 Plan: XR confirmed osteomyelitis first metatarsophalangeal joint. Given chronicity of osteomyelitis and multiple extended courses of IV antibiotics in the past likely little benefit to proceed with additional course. We will discuss with patient about a course of oral antibiotics. Patient has declined amputation in the past. # Primary hypertension: home antihypertensives as tolerated # History of retinal detachment: Follow-up outpatient with ophthalmology Dr. Pagan
[2024-04-06] MEDS: CALCIUM ACETATE 667 MG TABLET PO (17:39)
[2024-04-06] MEDS: INSULIN LISPRO (AdmeLOG) 1 UNIT/0.01 ML UNIT SC (17:40)
[2024-04-06] MEDS: CYCLObenzaPRINE 5 MG TABLET 10 MG PO (21:36)
[2024-04-06] MEDS: MELATONIN 3 MG TABLET PO (21:36)
--- NOTE | 2024-04-06 21:57 | PC.NURSE ---
notified Eliane HUNTER, patient requesting pain medication for where her insertion site was for her IJ. also held lantus 30u blood sugar was 81. 04/05 patient nightime blood sugar was 205, 40 units given and morning sugar 04/06 was 45.
[2024-04-07] VITALS (26 sets, daily range): BP systolic 105–162; BP diastolic 60–92; PULSE 86–98; RESP 14–97; TEMP 36–36.6; O2SAT 95–100; BMI 33.7
[2024-04-07] MEDS: HEPARIN SOD INJ 5000 UNIT/ML VIAL SC ×3 (05:34→21:20)
[2024-04-07 05:44] LABS: Basophils # (Auto) 0.1 Thou/mm3 (0.0-0.2); Basophils % (Auto) 1 % (0-2.5); Eosinophils # (Auto) 0.6 Thou/mm3 (0.0-0.5); Eosinophils % (Auto) 2 % (0-10); Hematocrit 26.5 % (36.0-46.0); Immature Granulocytes % (Auto) 4 % (0-0); Immature Granulocytes Auto 0.91 Thou/mm3 (0.00-0.00); Lymphocytes # (Auto) 5.9 Thou/mm3 (1.0-4.8); Lymphocytes % (Auto) 24 % (10-50); Mean Corpuscular HGB Conc 32.1 g/dl (31.0-37.0); Mean Corpuscular Hemoglobin 28.3 pg (25.0-35.0); Mean Corpuscular Volume 88 fL (80-100); Monocytes # (Auto) 1.1 Thou/mm3 (0.0-0.8); Monocytes % (Auto) 5 % (0-12); Neutrophils # (Auto) 15.6 Thou/mm3 (1.8-7.7); Neutrophils % (Auto) 64 % (37-80); Nucleated Red Blood Cell % 0 /100 WBC (0); Platelet Count 451 Thou/mm3 (140-440); RDW Standard Deviation 47.4 fL (36.4-46.3)
[2024-04-07 05:49] LABS: Hemoglobin 8.5 g/dL (12.0-16.0); White Blood Count 24.2 Thou/mm3 (3.6-11.0)
[2024-04-07 06:19] LABS: Sed Rate (ESR) 80 mm/hr (0-20)
[2024-04-07 06:38] LABS: Alanine Aminotransferase 34 U/L (10-49); Albumin, Serum 3.4 gm/dL (3.5-5.0); Albumin/Globulin Ratio 1.2 (1.2-2.2); Alkaline Phosphatase 132 U/L (46-116); Anion Gap 8 (7-16); Aspartate Amino Transferase 22 U/L (0-34); BUN/Creatinine Ratio 7 Ratio (12-20); Bilirubin,Total 0.4 mg/dL (0.3-1.2); Blood Urea Nitrogen 28 mg/dL (9-23); C-Reactive Protein 6.6 mg/dL (0.0-0.9); Calcium (Corrected) 8.5 mg/dL (8.5-10.1); Chloride 102 mMol/L (98-107); Creatinine (Component) 4.3 mg/dL (0.6-1.3); Estimated Creatinine Clearance 16.1 mL/min (>60); Globulin 2.8 gm/dL (2.3-3.5); Glucose 94 mg/dL (74-106); Osmolality,Calculated 277 (275-295); Phosphorous 4.1 mg/dL (2.4-5.1); Potassium 3.4 mMol/L (3.4-5.1); Sodium 136 mMol/L (136-145); Total Protein 6.2 gm/dL (5.7-8.2); eGFR 12 See Note
[2024-04-07] MEDS: CALCIUM ACETATE 667 MG TABLET PO ×2 (08:30→11:39)
[2024-04-07] MEDS: PANTOPRAZOLE 40 MG TABLET PO (08:30)
[2024-04-07] MEDS: NIFEdipine XL 30 MG TABCR PO (08:30)
--- NOTE | 2024-04-07 08:30 | ESPR_ITS ---
<Statement entered by Charles Kathleen MD - 04/07/24 17:31> Patient was seen and examined at the bedside. Patient was feeling fine and had no active concerns. She is pending on miscellaneous send out hep panel results, will likely discharge once the results are back. Will send the patient on doxycycline for osteomyelitis as infectious markers CRP came elevated. Rest of the labs were unremarkable. All labs and orders were reviewed. I saw and examined the patient, and I agree with current management stated by Dr Gavin MD,PGY1. Plan of care was discussed with the attending physician and resident physician. Disclaimer: Despite multiple revisions, due to the dictation software being used, the document bellow may not be free of grammatical errors including phonetic/typographic errors. However, this does not deter from our commitment to providing health care in the patient's best interest in mind. Dr. Danny MD, PGY 2 Documentation for date of: 04/07/24 Subjective Subjective Interval history: Patient was seen and examined at bedside this AM. No acute exents overnight. Patient tolerating diet, adequate urine output and mentation is at baseline. Patient endorses improvement of her SOB and is currently on room air Patient's Hb 8.5 stable stable post 1 unit PRBC 04/05 Fasting blood glucose 94 this morning. Patient on IV iron started on [04/04 - Also on Neupogen during dialysis sessions Hepatitis B core IgM pending as this is a requirement for outpatient dialysis at the center her insurance approved ESR elevated at 80 and CRP elevated at 6.6 Pending ID recommendations for treatment of chronic right foot osteomyelitis. 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 Nose: No nasal discharge. Mouth/Throat: Dry mucous membranes, poor dentation no redness, no lesions. Neck: Neck supple, non-tender, no cervical lymphadenopathy. Lungs: Clear RONALD to auscultation and percussion, No accessory muscle use. RIJ catheter insitu. Exit site clean Cardio: Normal S1/S2, regular rhythm, no murmurs, no JVD Abdomen: Soft, non-tender, no palpable masses, peristalsis present, no guarding or rebound. Extremities L LE AKA, no peripheral edema , non-tender, peripheral pulses present R LE. Base of R foot ulcer, eschar, non purulent Skin: No rashes, no lesions, warm to touch. Neuro: No focal neurological deficits. motor and sensory intact Psych: Cooperative, appropriate mood and effect. Objective Labs 04/07/24 05:05 04/07/24 05:05 Labs: Laboratory Results - last 24 hr 04/06/24 04/06/24 04/07/24 11:41 11:41 05:05 WBC 24.2 H RBC 3.00 L Hgb 8.5 L Hct 26.5 L MCV 88 MCH 28.3 MCHC 32.1 RDW Std Deviation 47.4 H Plt Count 451 H D Neut % (Auto) 64 Lymph % (Auto) 24 [place] % (Auto) 5 Eos % (Auto) 2 Baso % (Auto) 1 Neut # (Auto) 15.6 H Lymph # (Auto) 5.9 H [place] # (Auto) 1.1 H Eos # (Auto) 0.6 H Baso # (Auto) 0.1 Immature Gran # (Auto) 0.91 H Absolute Nucleated RBC 0.00 Immature Gran % 4 H Nucleated RBC % 0 ESR 80 H Sodium 136 Potassium 3.4 Chloride 102 Carbon Dioxide 26.0 Anion Gap 8 BUN 28 H Creatinine 4.3 H* D Estim Creat Clear Calc 16.1 L eGFR 12 L* BUN/Creatinine Ratio 7 L Glucose 94 D Calculated Osmolality 277 Calcium 8.0 L Corrected Calcium 8.5 Phosphorus 4.1 Magnesium 2.0 Total Bilirubin 0.4 AST 22 ALT 34 Alkaline Phosphatase 132 H C-Reactive Prot, Quant 6.6 H Total Protein 6.2 Albumin 3.4 L Globulin 2.8 Albumin/Globulin Ratio 1.2 Hepatitis A IgM Ab Non Reactive Hep Bs Antigen Non Reactive Non Reactive Hep Bs Antibody NonReact(Not Immune) L Hep B Core IgM Ab Non Reactive Hepatitis C Antibody Non Reactive ABG Interpretation ABG results: 03/31/24 04/01/24 23:41 09:24 ABG pH 7.30 L 7.31 L ABG pCO2 31 L 31 L ABG pO2 171 H 98 D ABG HCO3 15 L 16 L ABG O2 Saturation 100 H 98 ABG Base Excess -10 L -10 L Quality Measures Quality Measures sepsis Current suspected stage: sepsis Possible source: pulmonary Blood cultures ordered: yes Antibiotic ordered: Yes Assessment & Plan Assessment Current Active Medications: Generic Name Dose Route Start Last Admin Trade Name Freq PRN Reason Stop Dose Admin Acetaminophen 650 mg 04/01/24 15:50 Acetaminophen 325 Mg Tablet PO 05/01/24 02:10 Q6H PRN PAIN(1-3) OR FEVER > 101 Albuterol/Ipratropium 3 ml 04/02/24 11:02 Albuterol/Ipratropium (Duoneb) Rt Maggie 3 Ml Nebu INH 05/01/24 02:59 Q4HRRT PRN sob Calcium Acetate 667 mg 04/06/24 17:30 04/06/24 17:39 Calcium Acetate 667 Mg Tablet PO 05/06/24 17:29 667 mg TIDWM NASREEN Administration Cyclobenzaprine HCl 10 mg 04/03/24 21:00 04/06/24 21:36 Cyclobenzaprine 5 Mg Tablet PO 05/03/24 20:59 10 mg HS NASREEN Administration Dextrose 25 ml 04/01/24 02:16 04/06/24 07:09 Dextrose 50%-Water Inj 50 Ml Syringe IV 05/01/24 02:15 25 ml Q15MIN PRN Administration BG 50-70 responsive npo pt Dextrose 50 ml 04/01/24 02:16 Dextrose 50%-Water Inj 50 Ml Syringe IV 05/01/24 02:15 Q15MIN PRN BG <50 OR BG <70 & pt unresponsive Glucagon 1 mg 04/01/24 02:16 Glucagon Inj 1 Mg Vial IM Q15MIN PRN BG <70, and no IV access Heparin Sodium (Porcine) 5,000 unit 04/01/24 06:00 04/07/24 05:34 Heparin Sod Inj 5000 Unit/Ml Vial SC 04/15/24 05:59 5,000 unit Q8HR NASREEN Administration Heparin Sodium (Porcine) 3,500 unit 04/06/24 10:34 04/06/24 11:05 Heparin Sod Inj 1000 Unit/Ml Vial 10 Ml INDWELLCAT 04/11/24 10:33 3,500 unit X1 PRN Administration DIALYSIS Albumin Human 25 gm in 100 mls @ 100 mls/min 04/03/24 07:21 04/03/24 10:02 Albuminar-25 Ivpb IV 100 mls/min PRN PRN Administration DIALYSIS Ferric Sodium Gluconate 125 mg 110 mls @ 110 mls/hr 04/04/24 10:45 04/06/24 12:50 / Sodium Chloride IV 04/07/24 10:44 110 mls/hr QDAY NASREEN Administration Insulin Glargine 30 unit 04/06/24 21:00 04/06/24 21:42 Insulin Glargine (Lantus) 5 Unit/0.05 Ml (Per 5 Units) SC 05/06/24 20:59 Not Given HS NASREEN Insulin Human Lispro 0 unit 04/02/24 10:59 04/06/24 21:42 Insulin Lispro (Admelog) 1 Unit/0.01 Ml Unit SC 05/01/24 20:59 Not Given ACHS NASREEN Protocol Melatonin 3 mg 04/03/24 02:45 04/06/24 21:36 Melatonin 3 Mg Tablet PO 05/03/24 02:44 3 mg HS NASREEN Administration Nifedipine 30 mg 04/03/24 09:00 04/06/24 11:49 Nifedipine Xl 30 Mg Tabcr PO 05/03/24 08:59 30 mg QDAY NASREEN Administration Ondansetron HCl 4 mg 04/01/24 02:11 04/04/24 17:27 Ondansetron Inj 2 Mg/Ml Inj 2 Ml IV 05/01/24 02:10 4 mg Q6H PRN Administration NAUSEA OR VOMITING Protocol Pantoprazole Sodium 40 mg 04/01/24 09:00 04/06/24 11:49 Pantoprazole 40 Mg Tablet PO 05/01/24 08:59 40 mg QDAY NASREEN Administration Sennosides 1 tab 04/01/24 09:00 04/06/24 11:50 Senna Tablet PO 05/01/24 08:59 1 tab QDAY NASREEN Administration Protocol Plan Patient is a 43-year-old female past medical history of essential hypertension, IDDM [6.8], diabetic neuropathy s/p left AKA, chronic osteomyelitis of right first metatarsal and proximal phalanx of first digit and second distal metatarsal amputation, CKD stage V and asthma. Presented to the ED with a chief complaint of SOB and was admitted for acute respiratory failure with hypoxia secondary to sepsis due to CAP versus asthma exacerbation. 1. Acute respiratory failure with hypoxia - resolving Secondary to 2. Sepsis secondary to suspected GNR pneumonia versus asthma exacerbation?resolved 3. Community-acquired pneumonia 4. Leukocytosis - chronic Patient had SOB on admission and a history of sick contacts, her nephews. Associated with generalized weakness, body aches and productive cough. On exam patient mild wheezing. On admission patient met SIRS 2/4 for HR 113 and WBC 18.3 Source of infection CAP Chest x-ray was significant for bibasilar consolidation, no pleural effusion, pulmonary edema. Patient was started on hemodialysis this admission a sign of end organ damage Blood and urine cultures taken on 03/31 were both negative. Influenza A and B were also both negative Patient received 3 days of prednisone 20 Mg p.o. daily discontinued on 04/03. Leukocytosis most likely secondary to steroid use and chronic osteomyelitis Patient endorses improvement of her SOB and is currently on 2L O2 via NC. Plan: ? Completed 3 days azithromycin 500 Mg p.o. daily [04/01 - 04/04] ? Completed 5 days ceftriaxone 1 g IV daily started on [04/01?03/06] ? Continue to monitor CBC ? Supplemental O2 as necessary 4. Asthma exacerbation -resolved On presentation patient was SOB associated with a productive cough for the past few days. His sick contacts were her both nephews who are sick at home with the flu. Patient's home medication nebulizer machine with albuterol solution as needed. Patient received 3 days of prednisone 20 Mg p.o. daily and is currently no longer complaining of SOB and has no wheeze heard on exam. Plan: ? DuoNebs every 6 hourly as needed ? Continue supplemental O2 as necessary 5. CKD stage V on hemodialysis via right femoral catheter Patient's baseline CR between 3?5. On this admission patient's CR 6.1. Most likely secondary to longstanding diabetic and hypertensive nephropathy. Nephrology, Dr. Livingston was consulted who recommended patient be started on hemodialysis. Hepatitis B, C were negative with hep B antibody nonreactive. PPD negative Patient was administered hepatitis B vaccine 04/04. Patient on IV iron started on [04/04 - Also on Neupogen during dialysis sessions Patient had placement of right IJ PermCath 04/05 and removal of femoral temporary catheter 04/06 Hepatitis B core IgM ordered as this is a requirement for outpatient dialysis at the center her insurance approved ESR elevated at 80 and CRP elevated at 6.6 Plan: ? workers compensation administrator working on outpatient chair time for dialysis ? Hepatitis B core IgM pending ? Continue sevelamer 800 mg p.o. 3 times daily ? Continue hemodialysis as scheduled ? Avoid nephrotoxic agents ? Renally dose medications ? Nephrology consulted, appreciate recommendations 6. NAGMA?resolved On admission bicarb 14.7. Currently bicarb 27.8 7. IDDM type II [6.8] 8. Diabetic neuropathy 9. 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 History of chronic osteomyelitis right first digit Patient's home medication insulin glargine 38 units subcut at night and insulin HR as needed. Patient's HbA1c on admission 6.8. Foot x-ray was significant for right metacarpal joint osteomyelitis This a.m. patient's fasting blood glucose 44 and she received 50 mL of 50% dextrose after which it improved to 145 Will decrease insulin glargine to 30 units at bedtime from 40 units at bedtime Plan: - Continue insulin glargine 30 units at bedtime ? Continue insulin sliding scale to cover any glucose spikes ? Low consistent carb diet - Infectious disease recommended oral suppression as patient has been previously treated with IV antibiotics for osteomyelitis in 2022. - General surgery assessed patient and does not recommend any surgical intervention. Prescribed Santyl daily for wound care ? General Surgery was consulted, appreciate recommendations. ? Infectious disease was consulted, appreciate recommendations. 11. Essential hypertension On admission BP 173/90. Currently BP 133/84 Home medication amlodipine 2.5 Mg p.o. daily Plan: ? Continue nifedipine 30 Mg p.o. daily 12. Normocytic anemia On admission Hb 8.1. Currently Hb 8.4 DDx: RUTH ANN, blood loss anemia, anemia of chronic disease, thalassemia, lead poisoning. Iron panel significant for FE 12, TIBC 207, ferritin 219. Mixed picture of iron deficiency and anemia of chronic disease. Patient started on IV iron today Patient's Hb 8.5 this morning post 1 unit PRBC 04/05 Plan: - Stool for occult blood ordered ? Continue IV iron started on [04/04? ? Continue Epogen during HD sessions ? Continue to monitor CBC 13. Hypocalcemia- chronic On admission corrected Ca 7.2, currently corrected Ca 8.5 DDx: Hypoparathyroidism, vitamin D deficiency, acute renal failure, hypoalbuminemia, sepsis Most likely secondary to CKD stage V now requiring dialysis Calcium gluconate IV 10% x 1 given on 04/04 and 04/05 Plan: - Discontinued calcium carbonate 1g po BIDWM ? Continue calcium acetate 667 g p.o. 3 times daily WM as patient is CKD on HD and also at risk of hyperphosphatemia. Calcium acetate also helps to lower serum phosphorus ? Monitor calcium on CMP tomorrow 14. History of retinal detachment Follow-up outpatient with ophthalmology Health maintenance: Disposition: Pending outpatient chair time once hep B core antibody results available. ID recommendations for Chronic Right toe osteomyelitis Diet: Consistent carb low, renal Lines: pIVs GI Prophylaxis: Protonix Thrombo Prophylaxis: Heparin Code status: FULL CODE Plan of care discussed with Attending Dr. Pagan and PGY2 Dr. Danny Barton MD PGY 1 Attending Provider Attestation/Addendum I have examined the patient, reviewed labs and imaging findings, discussed the case with the resident(s), and reviewed entered orders. I agree with the plan of care as outlined in this note, with these additional summaries/recommendations: # ESRD #New Onset Dialysis Likely secondary to progression of underlying CKD from diabetic nephropathy and hypertensive nephrosclerosis Nephrology consulted, recommendations appreciated Plan: Received tunneled dialysis catheter 04/05/24. Pending outpatient chair time and further hepatitis B serology before patient can be safely discharged. #Chronic Osteomyelitis 08/26/23 MRI Right Foot: osteomyelitis distal first metatarsal and and proximal phalanx first digit plus osteomyelitis distal amputated second metatarsal 04/03/24 ESR 56 & CRP 5.2 & 04/07/24 ESR 80 & CRP 6.6 Plan: XR confirmed osteomyelitis first metatarsophalangeal joint. Given chronicity of osteomyelitis and multiple extended courses of IV antibiotics in the past likely little benefit to proceed with additional course. We will discuss with patient about a course of oral antibiotics. Patient has declined amputation in the past. Appreciate ID recs. # Acute hypoxic respiratory failure- Resolved # Community-acquired pneumonia- Resolved # Asthma exacerbation- Resolved Chest x-ray significant for bibasilar pneumonia, likely GNRs Plan: Continue DuoNebs every 4 hrs as needed. S/P abx course for pneumonia. Leukocytosis persists although likely secondary to steroid usage. Repeat hematology panel in am. #Symptomatic Anemia #Normocytic Anemia MCV in 80s-90s. Iron 12, TIBC 207, Iron sat 5, Unsat iron binding 195, Ferritin 209 Plan: Likely multi-factorial 2/2 to AOCD +/- iron def +/- ABLA? FOBT pending. Appreciate nephro recs on Epogen. S/P 1U PRBCs / and hemoglobin stable at 8.5 today # Diabetes Mellitus Type II with hyperglycemia Previously uncontrolled, most recent A1c 04/01/2024 6.8% Significant hyperglycemia likely secondary to steroids Target blood sugar of 140-180 while hospitalized Plan: BS improving, continue DM management # Primary hypertension: home antihypertensives as tolerated # History of retinal detachment: Follow-up outpatient with ophthalmology Dr. Pagan
[2024-04-07] MEDS: FERRIC SOD GLUC INJ 125 MG in SODIUM CHLORIDE 0.9% 100 ML 110 MG IV (09:47)
--- NOTE | 2024-04-07 10:40 | PD.RESPRO ---
Documentation for date of: 04/07/24 Subjective Subjective Interval history: Patient seen and examined today. No acute events overnight. Pending HD chair placement. 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 Cardio: Normal S1/S2, regular rhythm, no murmurs, no JVD Abdomen: Soft, non-tender, no palpable masses, peristalsis present, no guarding or rebound. Extremities L LE AKA, no peripheral edema , non-tender, peripheral pulses present R LE. Base of R foot ulcer, eschar, non purulent Skin: No rashes, no lesions, warm to touch. Neuro: No focal neurological deficits. motor and sensory intact Objective Labs 04/07/24 05:05 04/07/24 05:05 Labs: Laboratory Results - last 24 hr 04/06/24 04/06/24 04/07/24 11:41 11:41 05:05 WBC 24.2 H RBC 3.00 L Hgb 8.5 L Hct 26.5 L MCV 88 MCH 28.3 MCHC 32.1 RDW Std Deviation 47.4 H Plt Count 451 H D Neut % (Auto) 64 Lymph % (Auto) 24 [place] % (Auto) 5 Eos % (Auto) 2 Baso % (Auto) 1 Neut # (Auto) 15.6 H Lymph # (Auto) 5.9 H [place] # (Auto) 1.1 H Eos # (Auto) 0.6 H Baso # (Auto) 0.1 Immature Gran # (Auto) 0.91 H Absolute Nucleated RBC 0.00 Immature Gran % 4 H Nucleated RBC % 0 ESR 80 H Sodium 136 Potassium 3.4 Chloride 102 Carbon Dioxide 26.0 Anion Gap 8 BUN 28 H Creatinine 4.3 H* D Estim Creat Clear Calc 16.1 L eGFR 12 L* BUN/Creatinine Ratio 7 L Glucose 94 D Calculated Osmolality 277 Calcium 8.0 L Corrected Calcium 8.5 Phosphorus 4.1 Magnesium 2.0 Total Bilirubin 0.4 AST 22 ALT 34 Alkaline Phosphatase 132 H C-Reactive Prot, Quant 6.6 H Total Protein 6.2 Albumin 3.4 L Globulin 2.8 Albumin/Globulin Ratio 1.2 Hepatitis A IgM Ab Non Reactive Hep Bs Antigen Non Reactive Non Reactive Hep Bs Antibody NonReact(Not Immune) L Hep B Core IgM Ab Non Reactive Hepatitis C Antibody Non Reactive ABG Interpretation ABG results: 03/31/24 04/01/24 23:41 09:24 ABG pH 7.30 L 7.31 L ABG pCO2 31 L 31 L ABG pO2 171 H 98 D ABG HCO3 15 L 16 L ABG O2 Saturation 100 H 98 ABG Base Excess -10 L -10 L Quality Measures Quality Measures sepsis Current suspected stage: ruled out Possible source: pulmonary Blood cultures ordered: yes Antibiotic ordered: Yes Assessment & Plan Assessment Current Active Medications: Generic Name Dose Route Start Last Admin Trade Name Freq PRN Reason Stop Dose Admin Acetaminophen 650 mg 04/01/24 15:50 Acetaminophen 325 Mg Tablet PO 05/01/24 02:10 Q6H PRN PAIN(1-3) OR FEVER > 101 Albuterol/Ipratropium 3 ml 04/02/24 11:02 Albuterol/Ipratropium (Duoneb) Rt Maggie 3 Ml Nebu INH 05/01/24 02:59 Q4HRRT PRN sob Calcium Acetate 667 mg 04/06/24 17:30 04/07/24 08:30 Calcium Acetate 667 Mg Tablet PO 05/06/24 17:29 667 mg TIDWM NASREEN Administration Cyclobenzaprine HCl 10 mg 04/03/24 21:00 04/06/24 21:36 Cyclobenzaprine 5 Mg Tablet PO 05/03/24 20:59 10 mg HS NASREEN Administration Dextrose 25 ml 04/01/24 02:16 04/06/24 07:09 Dextrose 50%-Water Inj 50 Ml Syringe IV 05/01/24 02:15 25 ml Q15MIN PRN Administration BG 50-70 responsive npo pt Dextrose 50 ml 04/01/24 02:16 Dextrose 50%-Water Inj 50 Ml Syringe IV 05/01/24 02:15 Q15MIN PRN BG <50 OR BG <70 & pt unresponsive Glucagon 1 mg 04/01/24 02:16 Glucagon Inj 1 Mg Vial IM Q15MIN PRN BG <70, and no IV access Heparin Sodium (Porcine) 5,000 unit 04/01/24 06:00 04/07/24 05:34 Heparin Sod Inj 5000 Unit/Ml Vial SC 04/15/24 05:59 5,000 unit Q8HR NASREEN Administration Heparin Sodium (Porcine) 3,500 unit 04/06/24 10:34 04/06/24 11:05 Heparin Sod Inj 1000 Unit/Ml Vial 10 Ml INDWELLCAT 04/11/24 10:33 3,500 unit X1 PRN Administration DIALYSIS Albumin Human 25 gm in 100 mls @ 100 mls/min 04/03/24 07:21 04/03/24 10:02 Albuminar-25 Ivpb IV 100 mls/min PRN PRN Administration DIALYSIS Ferric Sodium Gluconate 125 mg 110 mls @ 110 mls/hr 04/04/24 10:45 04/07/24 09:47 / Sodium Chloride IV 04/07/24 10:44 110 mls/hr QDAY NASREEN Administration Insulin Glargine 30 unit 04/06/24 21:00 04/06/24 21:42 Insulin Glargine (Lantus) 5 Unit/0.05 Ml (Per 5 Units) SC 05/06/24 20:59 Not Given HS [facility] Insulin Human Lispro 0 unit 04/02/24 10:59 04/07/24 08:32 Insulin Lispro (Admelog) 1 Unit/0.01 Ml Unit SC 05/01/24 20:59 Not Given ACHS [facility] Protocol Melatonin 3 mg 04/03/24 02:45 04/06/24 21:36 Melatonin 3 Mg Tablet PO 05/03/24 02:44 3 mg HS NASREEN Administration Nifedipine 30 mg 04/03/24 09:00 04/07/24 08:30 Nifedipine Xl 30 Mg Tabcr PO 05/03/24 08:59 30 mg QDAY NASREEN Administration Ondansetron HCl 4 mg 04/01/24 02:11 04/04/24 17:27 Ondansetron Inj 2 Mg/Ml Inj 2 Ml IV 05/01/24 02:10 4 mg Q6H PRN Administration NAUSEA OR VOMITING Protocol Pantoprazole Sodium 40 mg 04/01/24 09:00 04/07/24 08:30 Pantoprazole 40 Mg Tablet PO 05/01/24 08:59 40 mg QDAY NASREEN Administration Sennosides 1 tab 04/01/24 09:00 04/06/24 11:50 Senna Tablet PO 05/01/24 08:59 1 tab QDAY NASREEN Administration Protocol Plan #Poorly controlled type 2 diabetes mellitus: #ESKD (end stage kidney disease): Pt has advanced kidney disease d/t uncontrolled DM Pt consented for dialysis S/p TDC Plan: -cont dialysis through TDC -pending HD chair -cont vance fernandez Patient's care was discussed with my attending physician, Dr. Miki Blue MD Internal Medicine PGY-3 Attending Provider Attestation/Addendum Agree with assessment and plan and findings. Seen and examined. labs reviewed. Plan discussed with resident. Bala Livingston MD
--- NOTE | 2024-04-07 10:45 | PC.SS ---
Rounding: Hep B Core Total Ab labs still pending to send to [facility] also pending ID reccs
[2024-04-07] MEDS: INSULIN LISPRO (AdmeLOG) 1 UNIT/0.01 ML UNIT SC ×2 (11:38→21:21)
[2024-04-07 12:21] LABS: Band Neutrophils (Manual) 1 % (0-6); Lymphocytes (Manual) 22 % (20-44); Monocytes (Manual) 4 % (2-9); Neutrophils (Manual) 73 % (50-70)
[2024-04-07 12:22] LABS: Toxic Granulation 1+
--- NOTE | 2024-04-07 15:46 | PC.NURSE ---
bp cont. to trend down, pt remains reclineed and denies all complaints of s/s of hypotension. UF goal lowered to 2.8L as tolerated. Will cont. to monitor
--- NOTE | 2024-04-07 16:00 | PC.NURSE ---
bp cont's. to trend down, pt remains w/o complaint. UF goal lowered to 2.5L as tolerated will cont. to monitor
--- NOTE | 2024-04-07 16:17 | PC.NURSE ---
BP CONT. TO TREND DOWN. PT DENIES ALL COMPLAINTS. UF GOAL LOWERED TO 2.2L TOLERATED.
--- NOTE | 2024-04-07 16:33 | PD.IDPROG ---
Subjective Subjective Interval history: no pos cx. rt foot not treated before. Exam Vital Signs Temp Pulse Resp BP Pulse Ox O2 Del Method O2 Flow Rate 96.8 F 92 18 123/80 96 Nasal Cannula 2 04/07/24 14:46 04/07/24 16:30 04/07/24 14:46 04/07/24 16:30 04/07/24 14:46 04/07/24 11:53 04/07/24 14:46 Narrative Exam awake alert. blind in rt eye. prior L aka noted. on O2 at 1 lpm but not distressed. Objective - Internal Medicine Labs 04/07/24 05:05 04/07/24 05:05 Labs: Laboratory Results - last 24 hr 04/07/24 05:05 WBC 24.2 H RBC 3.00 L Hgb 8.5 L Hct 26.5 L MCV 88 MCH 28.3 MCHC 32.1 RDW Std Deviation 47.4 H Plt Count 451 H D Neut % (Auto) 64 Lymph % (Auto) 24 [place] % (Auto) 5 Eos % (Auto) 2 Baso % (Auto) 1 Neut # (Auto) 15.6 H Lymph # (Auto) 5.9 H [place] # (Auto) 1.1 H Eos # (Auto) 0.6 H Baso # (Auto) 0.1 Immature Gran # (Auto) 0.91 H Absolute Nucleated RBC 0.00 Immature Gran % 4 H Neutrophils % (Manual) 73 H Monocytes % (Manual) 4 Nucleated RBC % 0 Band Neutrophils 1 Lymphocytes (Manual) 22 Toxic Granulation 1+ ESR 80 H Sodium 136 Potassium 3.4 Chloride 102 Carbon Dioxide 26.0 Anion Gap 8 BUN 28 H Creatinine 4.3 H* D Estim Creat Clear Calc 16.1 L eGFR 12 L* BUN/Creatinine Ratio 7 L Glucose 94 D Calculated Osmolality 277 Calcium 8.0 L Corrected Calcium 8.5 Phosphorus 4.1 Magnesium 2.0 Total Bilirubin 0.4 AST 22 ALT 34 Alkaline Phosphatase 132 H C-Reactive Prot, Quant 6.6 H Total Protein 6.2 Albumin 3.4 L Globulin 2.8 Albumin/Globulin Ratio 1.2 ABG Interpretation ABG results: 03/31/24 04/01/24 23:41 09:24 ABG pH 7.30 L 7.31 L ABG pCO2 31 L 31 L ABG pO2 171 H 98 D ABG HCO3 15 L 16 L ABG O2 Saturation 100 H 98 ABG Base Excess -10 L -10 L Assessment & Plan A&P Narrative osteo of rt foot, new dm IIa1c 6.8 but was 12.7 in december and she had ckd then but was not yet on hd ckd 5 hiv neg in 2021 and hep c neg this admit suggest iv ancef and po doxy for 6 weeks (thru 05/13) . if ulcer not healed, process may be more pressure related. if any question, ok to check cocci too, but this does not seem like cocci to me at this time control dm avoid pressure injury to foot. Time Spent With Patient Time: Total time spent is greater than 50% in coordination of care (as documented) at patient's floor/unit and/or counseling patient:
--- NOTE | 2024-04-07 17:30 | PC.NURSE ---
BP CONT'S. TO TREND DOWN, PT REMAINS W/O COMPLAINTS. UF GOAL LOWERED TO 2L TOLERATED, WILL MONITOR
--- NOTE | 2024-04-07 18:20 | ESCONSULT_ITS ---
<Statement entered by Billy Yuan MD - 04/10/24 07:57> pt seen with resident. all findings confirmed. 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 Patient initially presented to the ED with concerns of shortness of breath, was admitted for acute hypoxic respiratory failure secondary to sepsis from community acquired pneumonia with possible asthma exacerbation component. During hospital course, xray imaging of right foot revealed osteomyelitis primarily first metatarsophalangeal joint, in the context of elevated ESR and CRP levels. Infectious disease was consulted for these osteomyelitis findings. Patient was examined bedside while undergoing dialysis session. She state she feels well today, not endorsing any pain. Left above knee amputation is noted, patient reports occurred roughly 5-6 years ago. Patient states she has had antibiotic treatment for her left leg prior to amputation, but does not endorse any extended antibiotic course for her right toe osteomyelitis findings. She has followed up with wound care for right foot, but does endorse stopping for some time due to transportation issues. Allergies: Amoxcillin, clavulanic acid Social Hx: Denies alcohol or tobacco use, does endorse marijuana use and methamphetamine smoking, no IV drug use endorsed Surgical Hx: Left AKA, right foot second toe amputation Vaccination Hx: COVID 3x, recent tetanus (unclear of date), unclear of flu or pneumococcal vaccine cc:: cc: Dieudonne Pagan MD Exam Vital Signs Temp Pulse Resp BP Pulse Ox O2 Del Method O2 Flow Rate 97.1 F 88 18 118/68 99 Nasal Cannula 2 04/07/24 17:45 04/07/24 18:14 04/07/24 17:45 04/07/24 18:14 04/07/24 17:45 04/07/24 11:53 04/07/24 17:45 Narrative Exam General: AOx3, cooperative, HEENT: Atraumatic/normocephalic, 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 Bowel sounds present on all quadrants, no organomegaly Skin: Left AKA without signs of infection. Right second toe amputated, Right foot ulcer noted Neuro: No focal neurological deficits noted on appearance Results Labs 04/07/24 05:05 04/07/24 05:05 Labs: Short CBC 04/07/24 Range/Units 05:05 WBC 24.2 H (3.6-11.0) Thou/mm3 Hgb 8.5 L (12.0-16.0) g/dL Hct 26.5 L (36.0-46.0) % Plt Count 451 H D (140-440) Thou/mm3 BMP 04/07/24 05:05 Sodium 136 Potassium 3.4 Chloride 102 Carbon Dioxide 26.0 BUN 28 H Creatinine 4.3 H* D Glucose 94 D Calcium 8.0 L Liver Function 04/07/24 Range/Units 05:05 Total Bilirubin 0.4 (0.3-1.2) mg/dL AST 22 (0-34) U/L ALT 34 (10-49) U/L Alkaline Phosphatase 132 H (46-116) U/L Albumin 3.4 L (3.5-5.0) gm/dL ABG Interpretation ABG results: 03/31/24 04/01/24 23:41 09:24 ABG pH 7.30 L 7.31 L ABG pCO2 31 L 31 L ABG pO2 171 H 98 D ABG HCO3 15 L 16 L ABG O2 Saturation 100 H 98 ABG Base Excess -10 L -10 L Quality Measures Quality Measures VTE prophylaxis (Heparin subcutaneously) Medications Home Medications and Allergies Home Medications ?Medication ?Instructions ?Recorded ?Confirmed ?Type amlodipine 2.5 mg tablet 2.5 mg PO QDAY 08/25/23 04/03/24 History insulin glargine 100 unit/mL (3 38 unit subcut QDAY 04/01/24 04/03/24 History mL) subcutaneous pen (Basaglar KwikPen U-100 Insulin) insulin regular human 100 unit/mL See Protocol subcut TID 04/01/24 04/03/24 History injection solution (Novolin R Regular U-100 Insulin) lorazepam 0.5 mg tablet 0.5 mg PO HS 04/01/24 04/03/24 History Allergies Allergy/AdvReac Type Severity Reaction Status Date / Time amoxicillin [From Augmentin] Allergy Severe Swelling Verified 11/02/23 20:23 of Lip/Tongue/Throat clavulanic acid Allergy Severe Swelling Verified 11/02/23 20:23 [From Augmentin] of Lip/Tongue/Throat Visit Medications Acetaminophen (Acetaminophen 325 Mg Tablet) 650 mg PO Q6H PRN PRN Reason: PAIN(1-3) OR FEVER > 101 Stop: 05/01/24 02:10 Albuterol/Ipratropium (Albuterol/Ipratropium (Duoneb) Rt Maggie 3 Ml Nebu) 3 ml INH Q4HRRT PRN PRN Reason: sob Stop: 05/01/24 02:59 Calcium Acetate (Calcium Acetate 667 Mg Tablet) 667 mg PO TIDWM COUNT INCLUDES THE [facility] Stop: 05/06/24 17:29 Last Admin: 04/07/24 11:39 Dose: 667 mg Cyclobenzaprine HCl (Cyclobenzaprine 5 Mg Tablet) 10 mg PO HS COUNT INCLUDES THE [facility] Stop: 05/03/24 20:59 Last Admin: 04/06/24 21:36 Dose: 10 mg Dextrose (Dextrose 50%-Water Inj 50 Ml Syringe) 25 ml IV Q15MIN PRN PRN Reason: BG 50-70 responsive npo pt Stop: 05/01/24 02:15 Last Admin: 04/06/24 07:09 Dose: 25 ml Dextrose (Dextrose 50%-Water Inj 50 Ml Syringe) 50 ml IV Q15MIN PRN PRN Reason: BG <50 OR BG <70 & pt unresponsive Stop: 05/01/24 02:15 Doxycycline Hyclate (Doxycycline 100 Mg Tablet) 100 mg PO BID COUNT INCLUDES THE [facility] Stop: 05/13/24 12:00 Glucagon (Glucagon Inj 1 Mg Vial) 1 mg IM Q15MIN PRN PRN Reason: BG <70, and no IV access Heparin Sodium (Porcine) (Heparin Sod Inj 5000 Unit/Ml Vial) 5,000 unit SC Q8HR COUNT INCLUDES THE [facility] Stop: 04/15/24 05:59 Last Admin: 04/07/24 14:18 Dose: 5,000 unit Heparin Sodium (Porcine) (Heparin Sod Inj 1000 Unit/Ml Vial 10 Ml) 3,500 unit INDWELLCAT X1 PRN PRN Reason: DIALYSIS Stop: 04/11/24 10:33 Last Admin: 04/06/24 11:05 Dose: 3,500 unit Albumin Human (Albuminar-25 Ivpb) 25 gm in 100 mls @ 100 mls/min IV PRN PRN PRN Reason: DIALYSIS Last Admin: 04/03/24 10:02 Dose: 100 mls/min Cefazolin Sodium/Dextrose (Ancef Ivpb) 1 gm in 50 mls @ 100 mls/hr IV DAILY COUNT INCLUDES THE [facility] Stop: 04/15/24 08:59 Insulin Glargine (Insulin Glargine (Lantus) 5 Unit/0.05 Ml (Per 5 Units)) 30 unit SC [facility] Stop: 05/06/24 20:59 Last Admin: 04/06/24 21:42 Dose: Not Given Insulin Human Lispro (Insulin Lispro (Admelog) 1 Unit/0.01 Ml Unit) 0 unit SC [facility]; Protocol Stop: 05/01/24 20:59 Last Admin: 04/07/24 11:38 Dose: 4 unit Melatonin (Melatonin 3 Mg Tablet) 3 mg PO [facility] Stop: 05/03/24 02:44 Last Admin: 04/06/24 21:36 Dose: 3 mg Nifedipine (Nifedipine Xl 30 Mg Tabcr) 30 mg PO QDAY COUNT INCLUDES THE [facility] Stop: 05/03/24 08:59 Last Admin: 04/07/24 08:30 Dose: 30 mg Ondansetron HCl (Ondansetron Inj 2 Mg/Ml Inj 2 Ml) 4 mg IV Q6H PRN; Protocol PRN Reason: NAUSEA OR VOMITING Stop: 05/01/24 02:10 Last Admin: 04/04/24 17:27 Dose: 4 mg Pantoprazole Sodium (Pantoprazole 40 Mg Tablet) 40 mg PO QDAY COUNT INCLUDES THE [facility] Stop: 05/01/24 08:59 Last Admin: 04/07/24 08:30 Dose: 40 mg Sennosides (Senna Tablet) 1 tab PO QDAY COUNT INCLUDES THE [facility]; Protocol Stop: 05/01/24 08:59 Last Admin: 04/07/24 08:32 Dose: Not Given Discontinued Medications Acetaminophen (Acetaminophen 325 Mg Tablet) 650 mg PO Q6H PRN PRN Reason: PAIN OR FEVER > 101 Stop: 05/01/24 02:10 Hydrocodone Bitart/Acetaminophen (Hydrocodone/Apap 5/325 Tablet) 1 tab PO Q6HR PRN PRN Reason: PAIN SCALE 4-10(Mod-Sev Stop: 04/06/24 15:47 Last Admin: 04/05/24 21:08 Dose: 1 tab Hydrocodone Bitart/Acetaminophen (Hydrocodone/Apap 5/325 Tablet) 1 tab PO X1 ONE Stop: 04/06/24 22:08 Albuterol/Ipratropium (Albuterol/Ipratropium (Duoneb) Rt Maggie 3 Ml Nebu) 3 ml INH X1 ONE Stop: 03/31/24 23:14 Last Admin: 03/31/24 23:30 Dose: 3 ml Albuterol/Ipratropium (Albuterol/Ipratropium (Duoneb) Rt Maggie 3 Ml Nebu) 3 ml INH Q4HRRT COUNT INCLUDES THE [facility] Stop: 05/01/24 02:59 Last Admin: 04/02/24 10:45 Dose: Not Given Amlodipine Besylate (Amlodipine Besylate 2.5 Mg Tablet) 2.5 mg PO QDAY COUNT INCLUDES THE [facility] Stop: 05/01/24 08:59 Last Admin: 04/02/24 07:56 Dose: 2.5 mg Azithromycin (Azithromycin 250 Mg Tablet) 500 mg PO QPM COUNT INCLUDES THE [facility]; Protocol Stop: 04/08/24 20:59 Last Admin: 04/03/24 20:19 Dose: 500 mg Calcium Carbonate (Calcium Carbonate 600 Mg Tablet) 600 mg PO X1 ONE Stop: 04/03/24 10:05 Last Admin: 04/03/24 11:33 Dose: 600 mg Calcium Carbonate (Calcium Carbonate 500 Mg Chew) 1,000 mg PO BIDWM COUNT INCLUDES THE [facility] Stop: 05/06/24 07:59 Last Admin: 04/06/24 12:16 Dose: Not Given Calcium Gluconate (Calcium Gluconate 10% Inj 1 Gm/10 Ml Vial) 1 gm IV X1 ONE Stop: 04/04/24 10:46 Last Admin: 04/04/24 10:45 Dose: Not Given Calcium Gluconate (Calcium Gluconate 10% Inj 1 Gm/10 Ml Vial) 1 gm IV X1 ONE Stop: 04/05/24 07:38 Last Admin: 04/05/24 07:40 Dose: Not Given Collagenase (Collagenase Oint 30 Gm Tube) 0 gm TOP QDAY COUNT INCLUDES THE [facility] Stop: 05/04/24 13:29 Last Admin: 04/06/24 12:17 Dose: 1 applicatio Cyclobenzaprine HCl (Cyclobenzaprine 5 Mg Tablet) 10 mg PO X1 ONE Stop: 04/03/24 04:18 Last Admin: 04/03/24 04:23 Dose: 10 mg Epoetin Dago (Epoetin Dago-Epbx Inj 10,000 Unit/Ml Vial (Non-Esrd)) 10,000 unit SC X1 ONE Stop: 04/01/24 17:01 Last Admin: 04/01/24 17:08 Dose: 10,000 unit Epoetin Dago (Epoetin Dago-Epbx Inj 10,000 Unit/Ml Vial (Esrd)) 10,000 unit SC X1 ONE Stop: 04/06/24 09:01 Last Admin: 04/06/24 09:21 Dose: 10,000 unit Fentanyl Citrate (Fentanyl Cit Inj 50 Mcg/Ml Amp 2ml) 50 mcg IVP X1 ONE Stop: 04/05/24 12:17 Last Admin: 04/05/24 12:17 Dose: 50 mcg Heparin Sodium (Beef Lung) (Heparin Sod Lock Syr 100 Unit/Ml) 500 unit [place] X1 ONE Stop: 04/05/24 12:17 Last Admin: 04/05/24 12:17 Dose: 500 unit Heparin Sodium (Porcine) (Heparin Sod Inj 1000 Unit/Ml Vial 10 Ml) 2,500 unit INDWELLCAT X1 PRN PRN Reason: DIALYSIS Stop: 04/15/24 16:03 Last Admin: 04/03/24 11:04 Dose: 2,500 unit Heparin Sodium (Porcine) (Heparin Sod Inj 1000 Unit/Ml Vial) 3,500 unit INDWELLCAT X1 ONE Stop: 04/05/24 12:17 Last Admin: 04/05/24 12:17 Dose: 3,500 unit Hepatitis B Vaccine (Hepatitis B Vacc 20 Mcg/Ml Syringe) 20 mcg IMi .ONCE ONE Stop: 04/04/24 10:46 Sodium Chloride (Ns) 1,434 mls @ 1,434 mls/hr 30 ml/kg infuse over 60 min (1434 ml) IV .Q1H ONE Stop: 04/01/24 00:12 Last Infusion: 04/01/24 00:43 Dose: Infused Ceftriaxone Sodium/Dextrose (Rocephin/D5w 1gm Iv Premix) 50 mls @ 100 mls/hr IV X1 ONE Stop: 03/31/24 23:44 Last Infusion: 04/01/24 00:41 Dose: Infused Azithromycin 500 mg/ Sodium (Chloride) 250 mls @ 250 mls/hr IV X1 ONE Stop: 04/01/24 00:14 Last Infusion: 04/01/24 00:41 Dose: Infused Magnesium Sulfate/Dextrose (Magnesium Sulfate Ivpb) 1 gm in 100 mls @ 100 mls/hr IV X1 ONE Stop: 04/01/24 02:31 Last Infusion: 04/01/24 03:18 Dose: Infused Ceftriaxone Sodium/Dextrose (Rocephin/D5w 1gm Iv Premix) 50 mls @ 100 mls/hr IV QPM COUNT INCLUDES THE [facility] Stop: 04/08/24 20:59 Last Admin: 04/04/24 20:21 Dose: 100 mls/hr Azithromycin 500 mg/ Sodium (Chloride) 250 mls @ 250 mls/hr IV QDAY COUNT INCLUDES THE [facility] Stop: 04/08/24 08:59 Sodium Bicarbonate 88.23 meq/ (Dextrose) 588.23 mls @ 75 mls/hr IV .Q7H51M COUNT INCLUDES THE [facility] Stop: 04/01/24 10:24 Last Admin: 04/01/24 03:13 Dose: 75 mls/hr Magnesium Sulfate (Magnesium Sulfate Ivpb) 2 gm in 50 mls @ 25 mls/hr IV X1 ONE Stop: 04/04/24 09:57 Last Infusion: 04/04/24 10:30 Dose: Infused Ferric Sodium Gluconate 125 mg (/ Sodium Chloride) 110 mls @ 110 mls/hr IV QDAY COUNT INCLUDES THE [facility] Stop: 04/07/24 10:44 Last Admin: 04/07/24 09:47 Dose: 110 mls/hr Calcium Gluconate/Sodium Chloride (Calcium Gluc/Ns 1000mg Ivpb) 1,000 mg in 50 mls @ 50 mls/hr IV X1 ONE Stop: 04/04/24 11:59 Last Infusion: 04/04/24 12:43 Dose: Infused Calcium Gluconate/Sodium Chloride (Calcium Gluc/Ns 1000mg Ivpb) 1,000 mg in 50 mls @ 50 mls/hr IV X1 ONE Stop: 04/05/24 08:59 Last Admin: 04/05/24 08:19 Dose: 50 mls/hr Ceftriaxone Sodium 2 gm/ (Sodium Chloride) 50 mls @ 100 mls/hr IV QDAY COUNT INCLUDES THE [facility] Stop: 04/06/24 14:59 Last Admin: 04/06/24 11:52 Dose: 100 mls/hr Cefazolin Sodium/Dextrose (Ancef Ivpb) 1 gm in 50 mls @ 100 mls/hr IV DAILY COUNT INCLUDES THE [facility] Stop: 04/15/24 08:59 Insulin Glargine (Insulin Glargine (Lantus) 5 Unit/0.05 Ml (Per 5 Units)) 30 unit SC QAM COUNT INCLUDES THE [facility] Stop: 05/01/24 08:59 Last Admin: 04/02/24 07:55 Dose: 30 unit Insulin Glargine (Insulin Glargine (Lantus) 5 Unit/0.05 Ml (Per 5 Units)) 10 unit SC X1 ONE Stop: 04/02/24 10:58 Last Admin: 04/02/24 11:55 Dose: 10 unit Insulin Glargine (Insulin Glargine (Lantus) 5 Unit/0.05 Ml (Per 5 Units)) 40 unit SC QAM COUNT INCLUDES THE [facility] Stop: 05/03/24 08:59 Last Admin: 04/04/24 08:31 Dose: 40 unit Insulin Glargine (Insulin Glargine (Lantus) 5 Unit/0.05 Ml (Per 5 Units)) 40 unit SC HS COUNT INCLUDES THE [facility] Stop: 05/05/24 20:59 Last Admin: 04/05/24 21:17 Dose: 40 unit Insulin Glargine (Insulin Glargine (Lantus) 5 Unit/0.05 Ml (Per 5 Units)) 5 unit SC X1 ONE Stop: 04/04/24 21:01 Last Admin: 04/04/24 20:18 Dose: Not Given Insulin Human Lispro (Insulin Lispro (Admelog) 1 Unit/0.01 Ml Unit) 0 unit SC ACHS COUNT INCLUDES THE [facility]; Protocol Stop: 05/01/24 07:29 Insulin Human Lispro (Insulin Lispro (Admelog) 1 Unit/0.01 Ml Unit) 0 unit SC Q6HR COUNT INCLUDES THE [facility]; Protocol Stop: 05/01/24 05:59 Last Admin: 04/01/24 18:42 Dose: 2 unit Insulin Human Lispro (Insulin Lispro (Admelog) 1 Unit/0.01 Ml Unit) 0 unit SC ACHS COUNT INCLUDES THE [facility]; Protocol Stop: 05/01/24 20:59 Last Admin: 04/02/24 07:58 Dose: 8 unit Insulin Human Lispro (Insulin Lispro (Admelog) 1 Unit/0.01 Ml Unit) 6 unit SC X1 ONE Stop: 04/02/24 05:20 Last Admin: 04/02/24 05:37 Dose: 6 unit Insulin Human Lispro (Insulin Lispro (Admelog) 1 Unit/0.01 Ml Unit) 5 unit SC X1 ONE Stop: 04/02/24 10:59 Last Admin: 04/02/24 11:52 Dose: Not Given Lactulose (Lactulose Syrup 20 Gm/30 Ml Udc) 10 gm PO X1 ONE; Protocol Stop: 04/06/24 10:20 Last Admin: 04/06/24 11:50 Dose: 10 gm Lidocaine HCl (Lidocaine Inj Pf 1% 30 Ml Vial) 9 ml INFL X1 ONE Stop: 04/05/24 12:17 Last Admin: 04/05/24 12:17 Dose: 9 ml Methylprednisolone Sodium Succinate (Methylprednisolone Sod Succ 62.5 Mg/Ml 2ml Vial) 125 mg IVP X1 ONE Stop: 03/31/24 23:14 Last Admin: 03/31/24 23:37 Dose: 125 mg Prednisone (Prednisone 20 Mg Tablet) 40 mg PO QDAY COUNT INCLUDES THE [facility] Stop: 04/08/24 02:23 Last Admin: 04/02/24 07:55 Dose: 40 mg Prednisone (Prednisone 20 Mg Tablet) 20 mg PO QDAY [facility] Stop: 05/03/24 08:59 Last Admin: 04/03/24 09:00 Dose: Not Given Sevelamer Carbonate (Sevelamer Carbonate 800 Mg Tablet) 800 mg PO TIDWM [facility] Stop: 05/01/24 07:59 Last Admin: 04/06/24 11:49 Dose: 800 mg Tuberculin PPD (Tuberculin Ppd Inj 5 Unit/0.1 Ml Dose) 5 unit ID X1 ONE Stop: 04/02/24 11:05 Last Admin: 04/02/24 18:06 Dose: 5 unit Assessment & Plan Plan Patient is a 43 year old female with history of essential hypertension, IDDM, diabetic neuropathy s/p left AKA, chronic osteomyelitis of right first metatarsal and proximal phalanx of first digit and second distal metatarsal amputation, CKD V now on hemodialysis and asthma. Patient initially presented to the ED with concerns of shortness of breath, was admitted for acute hypoxic respiratory failure secondary to sepsis from community acquired pneumonia with possible asthma exacerbation component. During hospital course, xray imaging of right foot revealed osteomyelitis primarily first metatarsophalangeal joint, in the context of elevated ESR and CRP levels. Infectious disease was consulted for these osteomyelitis findings. #Right osteomyelitis primarily first metatarsophalangeal joint - Per foot xray imaging - Patient denies any prolonged antibiotic course for right foot, last extended abx course was for left leg prior to amputation roughly 5-6 years ago - ESR and CRP elevated at 80 and 6.6 respectively - Has completed rocephin and azithromycin course for pneumonia per primary team - Blood cultures 03/31 negative Plan: - Advise IV cefazolin 1g qday with PO doxycyline 100mg BID for 6 weeks (through May 13 2024) - Continue type 2 diabetes control - Avoid pressure injury to foot - Continue with wound care #AHRF 2/2 GNR CAP #CKD V on Dialysis #Hx of Asthma #Hx of T2DM #Hx of essential hypertension #Hx of retinal detachment - Management per primary team Patient case discussed with attending physician Dr. Kwabena Liang, DO PGY-3
[2024-04-07] MEDS: HEPARIN SOD INJ 1000 UNIT/ML VIAL 10 ML 3500 UNIT INDWELLCAT (18:54)
[2024-04-07] MEDS: MELATONIN 3 MG TABLET PO (21:19)
[2024-04-07] MEDS: CYCLObenzaPRINE 5 MG TABLET 10 MG PO (21:19)
[2024-04-07] MEDS: DOXYCYCLINE 100 MG TABLET PO (21:20)
[2024-04-07] MEDS: INSULIN GLARGINE (Lantus) 5 UNIT/0.05 ML (PER 5 UNITS) 30 UNIT SC (21:20)
[2024-04-08] VITALS (25 sets, daily range): BP systolic 96–180; BP diastolic 51–98; PULSE 83–102; RESP 10–99; TEMP 36–36.6; O2SAT 94–99
[2024-04-08] MEDS: HEPARIN SOD INJ 5000 UNIT/ML VIAL SC ×3 (05:36→21:01)
[2024-04-08 06:00] LABS: Basophils # (Auto) 0.1 Thou/mm3 (0.0-0.2); Basophils % (Auto) 1 % (0-2.5); Eosinophils # (Auto) 0.6 Thou/mm3 (0.0-0.5); Eosinophils % (Auto) 2 % (0-10); Hematocrit 26.4 % (36.0-46.0); Immature Granulocytes % (Auto) 6 % (0-0); Immature Granulocytes Auto 1.48 Thou/mm3 (0.00-0.00); Lymphocytes # (Auto) 5.7 Thou/mm3 (1.0-4.8); Lymphocytes % (Auto) 25 % (10-50); Mean Corpuscular HGB Conc 32.2 g/dl (31.0-37.0); Mean Corpuscular Hemoglobin 28.2 pg (25.0-35.0); Mean Corpuscular Volume 88 fL (80-100); Monocytes # (Auto) 1.5 Thou/mm3 (0.0-0.8); Monocytes % (Auto) 7 % (0-12); Neutrophils # (Auto) 13.9 Thou/mm3 (1.8-7.7); Neutrophils % (Auto) 60 % (37-80); Nucleated Red Blood Cell # 0.03 Thou/mm3 (0.00-0.00); Nucleated Red Blood Cell % 0 /100 WBC (0); Platelet Count 462 Thou/mm3 (140-440); RDW Standard Deviation 46.5 fL (36.4-46.3); Red Blood Count 3.01 Miln/mm3 (4.00-5.20); White Blood Count 23.3 Thou/mm3 (3.6-11.0)
[2024-04-08 06:04] LABS: Hemoglobin 8.5 g/dL (12.0-16.0)
[2024-04-08 06:30] LABS: Magnesium 2.1 mg/dL (1.6-2.6)
[2024-04-08] MEDS: CALCIUM ACETATE 667 MG TABLET PO ×3 (07:28→17:17)
[2024-04-08] MEDS: INSULIN LISPRO (AdmeLOG) 1 UNIT/0.01 ML UNIT SC ×3 (07:28→17:16)
[2024-04-08 08:33] LABS: Albumin, Serum 3.5 gm/dL (3.5-5.0); Anion Gap 4 (7-16); BUN/Creatinine Ratio 7 Ratio (12-20); Blood Urea Nitrogen 25 mg/dL (9-23); Calcium 8.6 mg/dL (8.3-10.6); Carbon Dioxide 29.6 mMol/L (20.0-31.0); Chloride 104 mMol/L (98-107); Creatinine (Component) 3.8 mg/dL (0.6-1.3); Estimated Creatinine Clearance 17.8 mL/min (>60); Glucose 174 mg/dL (74-106); Osmolality,Calculated 284 (275-295); Phosphorous 3.2 mg/dL (2.4-5.1); Potassium 3.7 mMol/L (3.4-5.1); Sodium 138 mMol/L (136-145); eGFR 14 See Note
--- NOTE | 2024-04-08 08:58 | PC.SS ---
SS follow up note; Patient is still pending the Hep B Core total antibody. Patient will need IV ABX X1 a day for 6 Weeks until May 13.
--- NOTE | 2024-04-08 09:33 | PC.CM ---
HARINI Lucero informed me that pt needs HH for IV abx for 6 Weeks until May 13. I entered pt on [facility]. Pending orders from in order to send referral.
[2024-04-08] MEDS: NIFEdipine XL 30 MG TABCR PO (09:34)
[2024-04-08] MEDS: PANTOPRAZOLE 40 MG TABLET PO (09:34)
[2024-04-08] MEDS: DOXYCYCLINE 100 MG TABLET PO ×2 (09:36→20:56)
--- NOTE | 2024-04-08 09:50 | ESPR_ITS ---
<Statement entered by Carlos Ortega MD - 04/09/24 12:27> I have discussed and was present for the essential components of the history, physical examination, diagnosis, and treatment plan with the resident. I agree with the patient's care as documented by the resident and amended herein by me. Carlos Ortega MD. <Statement entered by Charles Kathleen MD - 04/08/24 15:52> Patient was seen and examined at the bedside. Patient had no acute overnight event. She is stable and underwent dialysis session per schedule. Orthopedics assisted to continue p.o. doxycycline for 6 weeks for osteomyelitis. She will need weekly CBC, ESR and CRP until completion of course of antibiotic. We are awaiting hep panel sent out for set up of outpatient dialysis. All labs and orders were reviewed. I saw and examined the patient, and I agree with current management stated by Dr Gavin MD,PGY1. Plan of care was discussed with the attending physician and resident physician. Disclaimer: Despite multiple revisions, due to the dictation software being used, the document bellow may not be free of grammatical errors including phonetic/typographic errors. However, this does not deter from our commitment to providing health care in the patient's best interest in mind. Dr. Danny MD, PGY 2 Documentation for date of: 04/08/24 Subjective Subjective Interval history: Patient was seen and examined at bedside this AM. No acute exents overnight. Patient tolerating diet, adequate urine output and mentation is at baseline. Patient endorses improvement of her SOB and is currently on room air Patient's Hb 8.5 stable stable post 1 unit PRBC 12/ Fasting blood glucose 174 this morning. Patient on IV iron started on [04/04 - Also on Neupogen during dialysis sessions Hepatitis B core IgM pending as this is a requirement for outpatient dialysis at the center her insurance approved ID, Dr Yuan recommended 6 weeks of treatment with doxycycline 100 Mg p.o. twice daily and Keflex during dialysis sessions. 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 Nose: No nasal discharge. Mouth/Throat: Moist mucous membranes, poor dentation no redness, no lesions. Neck: Neck supple, non-tender, no cervical lymphadenopathy. Lungs: Bronchial breath sounds on auscultation, No accessory muscle use. RIJ catheter insitu. Exit site clean Cardio: Normal S1/S2, regular rhythm, no murmurs, no JVD Abdomen: Soft, non-tender, no palpable masses, peristalsis present, no guarding or rebound. Extremities L AKA, no peripheral edema , non-tender, peripheral pulses present R LE. Base of R foot ulcer, eschar, non purulent Skin: No rashes, no lesions, warm to touch. Neuro: No focal neurological deficits. motor and sensory intact Psych: Cooperative, appropriate mood and effect. Objective Labs 04/08/24 05:40 04/08/24 07:54 Labs: Laboratory Results - last 24 hr 04/07/24 04/08/24 04/08/24 05:05 05:40 07:54 WBC 23.3 H RBC 3.01 L Hgb 8.5 L Hct 26.4 L MCV 88 MCH 28.2 MCHC 32.2 RDW Std Deviation 46.5 H Plt Count 462 H Neut % (Auto) 60 Lymph % (Auto) 25 [place] % (Auto) 7 Eos % (Auto) 2 Baso % (Auto) 1 Neut # (Auto) 13.9 H Lymph # (Auto) 5.7 H [place] # (Auto) 1.5 H Eos # (Auto) 0.6 H Baso # (Auto) 0.1 Immature Gran # (Auto) 1.48 H Absolute Nucleated RBC 0.03 H Immature Gran % 6 H Neutrophils % (Manual) 73 H Monocytes % (Manual) 4 Nucleated RBC % 0 Band Neutrophils 1 Lymphocytes (Manual) 22 Toxic Granulation 1+ Sodium Cancelled 138 Potassium Cancelled 3.7 Chloride Cancelled 104 Carbon Dioxide Cancelled 29.6 Anion Gap Cancelled 4 L BUN Cancelled 25 H Creatinine Cancelled 3.8 H D Estim Creat Clear Calc Cancelled 17.8 L eGFR Cancelled 14 L* BUN/Creatinine Ratio Cancelled 7 L Glucose Cancelled 174 H D Calculated Osmolality Cancelled 284 Calcium Cancelled 8.6 Corrected Calcium Cancelled 9.0 Phosphorus Cancelled 3.2 Magnesium 2.1 Albumin Cancelled 3.5 ABG Interpretation ABG results: 03/31/24 04/01/24 23:41 09:24 ABG pH 7.30 L 7.31 L ABG pCO2 31 L 31 L ABG pO2 171 H 98 D ABG HCO3 15 L 16 L ABG O2 Saturation 100 H 98 ABG Base Excess -10 L -10 L Quality Measures Quality Measures VTE prophylaxis (Heparin subcutaneously) Assessment & Plan Assessment Current Active Medications: Generic Name Dose Route Start Last Admin Trade Name Freq PRN Reason Stop Dose Admin Acetaminophen 650 mg 04/01/24 15:50 Acetaminophen 325 Mg Tablet PO 05/01/24 02:10 Q6H PRN PAIN(1-3) OR FEVER > 101 Albuterol/Ipratropium 3 ml 04/02/24 11:02 Albuterol/Ipratropium (Duoneb) Rt Maggie 3 Ml Nebu INH 05/01/24 02:59 Q4HRRT PRN sob Calcium Acetate 667 mg 04/06/24 17:30 04/08/24 07:28 Calcium Acetate 667 Mg Tablet PO 05/06/24 17:29 667 mg TIDWM NASREEN Administration Cyclobenzaprine HCl 10 mg 04/03/24 21:00 04/07/24 21:19 Cyclobenzaprine 5 Mg Tablet PO 05/03/24 20:59 10 mg HS NASREEN Administration Dextrose 25 ml 04/01/24 02:16 04/06/24 07:09 Dextrose 50%-Water Inj 50 Ml Syringe IV 05/01/24 02:15 25 ml Q15MIN PRN Administration BG 50-70 responsive npo pt Dextrose 50 ml 04/01/24 02:16 Dextrose 50%-Water Inj 50 Ml Syringe IV 05/01/24 02:15 Q15MIN PRN BG <50 OR BG <70 & pt unresponsive Doxycycline Hyclate 100 mg 04/07/24 21:00 04/08/24 09:36 Doxycycline 100 Mg Tablet PO 05/13/24 12:00 100 mg BID NASREEN Administration Glucagon 1 mg 04/01/24 02:16 Glucagon Inj 1 Mg Vial IM Q15MIN PRN BG <70, and no IV access Heparin Sodium (Porcine) 5,000 unit 04/01/24 06:00 04/08/24 05:36 Heparin Sod Inj 5000 Unit/Ml Vial SC 04/15/24 05:59 5,000 unit Q8HR NASREEN Administration Heparin Sodium (Porcine) 3,500 unit 04/06/24 10:34 04/07/24 18:54 Heparin Sod Inj 1000 Unit/Ml Vial 10 Ml INDWELLCAT 04/11/24 10:33 3,500 unit X1 PRN Administration DIALYSIS Albumin Human 25 gm in 100 mls @ 100 mls/min 04/03/24 07:21 04/03/24 10:02 Albuminar-25 Ivpb IV 100 mls/min PRN PRN Administration DIALYSIS Cefazolin Sodium/Dextrose 1 gm in 50 mls @ 100 mls/hr 04/08/24 09:00 04/08/24 09:36 Ancef Ivpb IV 04/15/24 08:59 100 mls/hr DAILY NASREEN Administration Insulin Glargine 30 unit 04/06/24 21:00 04/07/24 21:20 Insulin Glargine (Lantus) 5 Unit/0.05 Ml (Per 5 Units) SC 05/06/24 20:59 30 unit HS NASREEN Administration Insulin Human Lispro 0 unit 04/02/24 10:59 04/08/24 07:28 Insulin Lispro (Admelog) 1 Unit/0.01 Ml Unit SC 05/01/24 20:59 4 unit ACHS NASREEN Administration Protocol Melatonin 3 mg 04/03/24 02:45 04/07/24 21:19 Melatonin 3 Mg Tablet PO 05/03/24 02:44 3 mg HS NASREEN Administration Nifedipine 30 mg 04/03/24 09:00 04/08/24 09:34 Nifedipine Xl 30 Mg Tabcr PO 05/03/24 08:59 30 mg QDAY NASREEN Administration Ondansetron HCl 4 mg 04/01/24 02:11 04/04/24 17:27 Ondansetron Inj 2 Mg/Ml Inj 2 Ml IV 05/01/24 02:10 4 mg Q6H PRN Administration NAUSEA OR VOMITING Protocol Pantoprazole Sodium 40 mg 04/01/24 09:00 04/08/24 09:34 Pantoprazole 40 Mg Tablet PO 05/01/24 08:59 40 mg QDAY [facility] Administration Sennosides 1 tab 04/01/24 09:00 04/08/24 09:38 Senna Tablet PO 05/01/24 08:59 Not Given QDAY [facility] Protocol Plan Patient is a 43-year-old female past medical history of essential hypertension, IDDM [6.8], diabetic neuropathy s/p left AKA, chronic osteomyelitis of right first metatarsal and proximal phalanx of first digit and second distal metatarsal amputation, CKD stage V and asthma. Presented to the ED with a chief complaint of SOB and was admitted for acute respiratory failure with hypoxia secondary to sepsis due to CAP versus asthma exacerbation. 1. Acute respiratory failure with hypoxia - resolving Secondary to 2. Sepsis secondary to suspected GNR pneumonia versus asthma exacerbation?resolved 3. Community-acquired pneumonia 4. Leukocytosis - chronic Patient had SOB on admission and a history of sick contacts, her nephews. Associated with generalized weakness, body aches and productive cough. On exam patient mild wheezing. On admission patient met SIRS 2/4 for HR 113 and WBC 18.3 Source of infection CAP Chest x-ray was significant for bibasilar consolidation, no pleural effusion, pulmonary edema. Patient was started on hemodialysis this admission a sign of end organ damage Blood and urine cultures taken on 03/31 were both negative. Influenza A and B were also both negative Patient received 3 days of prednisone 20 Mg p.o. daily discontinued on 04/03. Leukocytosis most likely secondary to steroid use and chronic osteomyelitis Blood smear completed on 04/01 findings include: ? Severe normocytic anemia without hemolysis. ? Marked, mature neutrophilic leukocytosis. ? Moderate thrombocytosis. Pathologist recommended a oil field caser referral as these findings are chronic and have persisted for several days. Patient endorses improvement of her SOB and is currently on 2L O2 via ME. Plan: ? Completed 3 days azithromycin 500 Mg p.o. daily [04/01 - 04/04] ? Completed 5 days ceftriaxone 1 g IV daily started on [04/01?03/06] ? Continue to monitor CBC ? Supplemental O2 as necessary 4. Asthma exacerbation -resolved On presentation patient was SOB associated with a productive cough for the past few days. His sick contacts were her both nephews who are sick at home with the flu. Patient's home medication nebulizer machine with albuterol solution as needed. Patient received 3 days of prednisone 20 Mg p.o. daily and is currently no longer complaining of SOB and has no wheeze heard on exam. Plan: ? DuoNebs every 6 hourly as needed ? Continue supplemental O2 as necessary 5. CKD stage V on hemodialysis via RIJ permanent Catheter 6. R femoral temporary catheter s/p removal 04/06 Patient's baseline CR between 3?5. On this admission patient's CR 6.1. Most likely secondary to longstanding diabetic and hypertensive nephropathy. Nephrology, Dr. Livingston was consulted who recommended patient be started on hemodialysis. Hepatitis B, C were negative with hep B antibody nonreactive. PPD negative Patient was administered hepatitis B vaccine 04/04. Patient on IV iron started on [04/04 - Also on Neupogen during dialysis sessions Patient had placement of right IJ PermCath 04/05 and removal of femoral temporary catheter 04/06 Hepatitis B core IgM ordered as this is a requirement for outpatient dialysis at the center her insurance approved ESR elevated at 80 and CRP elevated at 6.6 Currently Dialysing //Fri Plan: ? harm reduction worker working on outpatient chair time for dialysis ? Hepatitis B core IgM pending ? Continue sevelamer 800 mg p.o. 3 times daily ? Continue hemodialysis as scheduled ? Avoid nephrotoxic agents ? Renally dose medications ? Nephrology consulted, appreciate recommendations 6. NAGMA?resolved On admission bicarb 14.7. Currently bicarb 27.8 7. IDDM type II [6.8] 8. Diabetic neuropathy 9. 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 History of chronic osteomyelitis right first digit Patient's home medication insulin glargine 38 units subcut at night and insulin HR as needed. Patient's HbA1c on admission 6.8. Foot x-ray was significant for right metacarpal joint osteomyelitis This a.m. patient's fasting blood glucose 180 ID, Dr Yuan recommended 6 weeks of treatment with doxycycline 100 Mg p.o. twice daily and Keflex during dialysis sessions. To complete treatment on 05/13/2024 Plan: - Continue insulin glargine 30 units at bedtime ? Continue insulin sliding scale to cover any glucose spikes ? Low consistent carb diet ? D2 cefazolin 1 g IV daily started on [04/07? as per ID recommendations ? D2 doxycycline 100 Mg p.o. twice daily started on [12/4?as per ID recommendations ? Upon discharge patient to continue with doxycycline 100 Mg p.o. twice daily for 6 weeks to complete on 05/13/2024 along with Keflex during dialysis sessions. - Infectious disease recommended oral suppression as patient has been previously treated with IV antibiotics for osteomyelitis in 2022. - General surgery assessed patient and does not recommend any surgical intervention. Prescribed Santyl daily for wound care ? General Surgery was consulted, appreciate recommendations. ? Infectious disease was consulted, appreciate recommendations. 11. Essential hypertension On admission BP 173/90. Currently BP 133/84 Home medication amlodipine 2.5 Mg p.o. daily Plan: ? Continue nifedipine 30 Mg p.o. daily 12. Normocytic anemia On admission Hb 8.1. Currently Hb 8.5 DDx: RUTH ANN, blood loss anemia, anemia of chronic disease, thalassemia, lead poisoning. Iron panel significant for FE 12, TIBC 207, ferritin 219. Mixed picture of iron deficiency and anemia of chronic disease. Patient on IV iron started on [04/04 - Patient's Hb 8.5 this morning post 1 unit PRBC 04/05 Plan: - Stool for occult blood ordered ? Continue IV iron started on [04/04? ? Continue Epogen during HD sessions ? Continue to monitor CBC 13. Hypocalcemia- chronic On admission corrected Ca 7.2, currently corrected Ca 9 DDx: Hypoparathyroidism, vitamin D deficiency, acute renal failure, hypoalbuminemia, sepsis Most likely secondary to CKD stage V now requiring dialysis Calcium gluconate IV 10% x 1 given on 04/04 and 04/05 Plan: - Discontinued calcium carbonate 1g po BIDWM ? Continue calcium acetate 667 g p.o. 3 times daily WM as patient is CKD on HD and also at risk of hyperphosphatemia. Calcium acetate also helps to lower serum phosphorus ? Monitor calcium on CMP tomorrow 14. History of retinal detachment Follow-up outpatient with ophthalmology Health maintenance: Disposition: Pending outpatient chair time once hep B core antibody results available. To complete 6 weeks of treatment with doxycycline 100 Mg p.o. twice daily until 05/13/2024 Diet: Consistent carb low, renal Lines: pIVs GI Prophylaxis: Protonix Thrombo Prophylaxis: Heparin Code status: FULL CODE Plan of care discussed with Attending Dr. Ortega and PGY2 Dr. Danny Barton MD PGY 1
--- NOTE | 2024-04-08 09:59 | PD.RESPRO ---
Documentation for date of: 04/08/24 Subjective Subjective Interval history: Patient seen and examined today. No acute events overnight. Pending HD chair placement. 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 Cardio: Normal S1/S2, regular rhythm, no murmurs, no JVD Abdomen: Soft, non-tender, no palpable masses, peristalsis present, no guarding or rebound. Extremities L LE AKA, no peripheral edema , non-tender, peripheral pulses present R LE. Base of R foot ulcer, eschar, non purulent Skin: No rashes, no lesions, warm to touch. Neuro: No focal neurological deficits. motor and sensory intact Objective Labs 04/10/24 04:54 04/10/24 04:54 Labs: Laboratory Results - last 24 hr 04/07/24 04/08/24 04/08/24 05:05 05:40 07:54 WBC 23.3 H RBC 3.01 L Hgb 8.5 L Hct 26.4 L MCV 88 MCH 28.2 MCHC 32.2 RDW Std Deviation 46.5 H Plt Count 462 H Neut % (Auto) 60 Lymph % (Auto) 25 [place] % (Auto) 7 Eos % (Auto) 2 Baso % (Auto) 1 Neut # (Auto) 13.9 H Lymph # (Auto) 5.7 H [place] # (Auto) 1.5 H Eos # (Auto) 0.6 H Baso # (Auto) 0.1 Immature Gran # (Auto) 1.48 H Absolute Nucleated RBC 0.03 H Immature Gran % 6 H Neutrophils % (Manual) 73 H Monocytes % (Manual) 4 Nucleated RBC % 0 Band Neutrophils 1 Lymphocytes (Manual) 22 Toxic Granulation 1+ Sodium Cancelled 138 Potassium Cancelled 3.7 Chloride Cancelled 104 Carbon Dioxide Cancelled 29.6 Anion Gap Cancelled 4 L BUN Cancelled 25 H Creatinine Cancelled 3.8 H D Estim Creat Clear Calc Cancelled 17.8 L eGFR Cancelled 14 L* BUN/Creatinine Ratio Cancelled 7 L Glucose Cancelled 174 H D Calculated Osmolality Cancelled 284 Calcium Cancelled 8.6 Corrected Calcium Cancelled 9.0 Phosphorus Cancelled 3.2 Magnesium 2.1 Albumin Cancelled 3.5 ABG Interpretation ABG results: 03/31/24 04/01/24 23:41 09:24 ABG pH 7.30 L 7.31 L ABG pCO2 31 L 31 L ABG pO2 171 H 98 D ABG HCO3 15 L 16 L ABG O2 Saturation 100 H 98 ABG Base Excess -10 L -10 L Quality Measures Quality Measures VTE prophylaxis (Heparin subcutaneously) Assessment & Plan Assessment Current Active Medications: Generic Name Dose Route Start Last Admin Trade Name Freq PRN Reason Stop Dose Admin Acetaminophen 650 mg 04/01/24 15:50 Acetaminophen 325 Mg Tablet PO 05/01/24 02:10 Q6H PRN PAIN(1-3) OR FEVER > 101 Albuterol/Ipratropium 3 ml 04/02/24 11:02 Albuterol/Ipratropium (Duoneb) Rt Maggie 3 Ml Nebu INH 05/01/24 02:59 Q4HRRT PRN sob Calcium Acetate 667 mg 04/06/24 17:30 04/08/24 07:28 Calcium Acetate 667 Mg Tablet PO 05/06/24 17:29 667 mg TIDWM NASREEN Administration Cyclobenzaprine HCl 10 mg 04/03/24 21:00 04/07/24 21:19 Cyclobenzaprine 5 Mg Tablet PO 05/03/24 20:59 10 mg HS NASREEN Administration Dextrose 25 ml 04/01/24 02:16 04/06/24 07:09 Dextrose 50%-Water Inj 50 Ml Syringe IV 05/01/24 02:15 25 ml Q15MIN PRN Administration BG 50-70 responsive npo pt Dextrose 50 ml 04/01/24 02:16 Dextrose 50%-Water Inj 50 Ml Syringe IV 05/01/24 02:15 Q15MIN PRN BG <50 OR BG <70 & pt unresponsive Doxycycline Hyclate 100 mg 04/07/24 21:00 04/08/24 09:36 Doxycycline 100 Mg Tablet PO 05/13/24 12:00 100 mg BID NASREEN Administration Glucagon 1 mg 04/01/24 02:16 Glucagon Inj 1 Mg Vial IM Q15MIN PRN BG <70, and no IV access Heparin Sodium (Porcine) 5,000 unit 04/01/24 06:00 04/08/24 05:36 Heparin Sod Inj 5000 Unit/Ml Vial SC 04/15/24 05:59 5,000 unit Q8HR NASREEN Administration Heparin Sodium (Porcine) 3,500 unit 04/06/24 10:34 04/07/24 18:54 Heparin Sod Inj 1000 Unit/Ml Vial 10 Ml INDWELLCAT 04/11/24 10:33 3,500 unit X1 PRN Administration DIALYSIS Albumin Human 25 gm in 100 mls @ 100 mls/min 04/03/24 07:21 04/03/24 10:02 Albuminar-25 Ivpb IV 100 mls/min PRN PRN Administration DIALYSIS Cefazolin Sodium/Dextrose 1 gm in 50 mls @ 100 mls/hr 04/08/24 09:00 04/08/24 09:36 Ancef Ivpb IV 04/15/24 08:59 100 mls/hr DAILY NASREEN Administration Insulin Glargine 30 unit 04/06/24 21:00 04/07/24 21:20 Insulin Glargine (Lantus) 5 Unit/0.05 Ml (Per 5 Units) SC 05/06/24 20:59 30 unit HS NASREEN Administration Insulin Human Lispro 0 unit 04/02/24 10:59 04/08/24 07:28 Insulin Lispro (Admelog) 1 Unit/0.01 Ml Unit SC 05/01/24 20:59 4 unit ACHS NASREEN Administration Protocol Melatonin 3 mg 04/03/24 02:45 04/07/24 21:19 Melatonin 3 Mg Tablet PO 05/03/24 02:44 3 mg HS NASREEN Administration Nifedipine 30 mg 04/03/24 09:00 04/08/24 09:34 Nifedipine Xl 30 Mg Tabcr PO 05/03/24 08:59 30 mg QDAY NASREEN Administration Ondansetron HCl 4 mg 04/01/24 02:11 04/04/24 17:27 Ondansetron Inj 2 Mg/Ml Inj 2 Ml IV 05/01/24 02:10 4 mg Q6H PRN Administration NAUSEA OR VOMITING Protocol Pantoprazole Sodium 40 mg 04/01/24 09:00 04/08/24 09:34 Pantoprazole 40 Mg Tablet PO 05/01/24 08:59 40 mg QDAY NASREEN Administration Sennosides 1 tab 04/01/24 09:00 04/08/24 09:38 Senna Tablet PO 05/01/24 08:59 Not Given QDAY NASREEN Protocol Plan #Poorly controlled type 2 diabetes mellitus: #ESKD (end stage kidney disease): Pt has advanced kidney disease d/t uncontrolled DM Pt consented for dialysis S/p TDC Plan: -cont dialysis through TDC -pending HD chair -cont vance fernandez Patient's care was discussed with my attending physician, Dr. Miki Blue MD Internal Medicine PGY-3 Attending Provider Attestation/Addendum Agree with assessment and plan and findings. Seen and examined. labs reviewed. Plan discussed with resident. Bala Livingston MD
--- NOTE | 2024-04-08 10:21 | PC.SS ---
SS follow up note; SS met with patient at bedside to inform her that she will require IV ABX for a six-week duration. The patient stated that he sister, Gisella Ahuja [phone] will be responsible for administering the medication.
--- NOTE | 2024-04-08 11:16 | PC.NURSE ---
BP TRENDING DOWN PT DENIES ALL COMPLAINTS. UF GOAL LOWERED TO 2L TOLERATED WILL CONT. TO MONITOR
[2024-04-08] MEDS: ALBUMIN HUMAN 25% IVPB 25 GM/100 ML BTL IV (11:57)
--- NOTE | 2024-04-08 11:58 | PC.NURSE ---
bp cont. to trend down, pt c/o nauseous feeling.UF turned off. albumin 25/100ml administered. will admin antiemetic per pt request and cont. to monitor
[2024-04-08] MEDS: ONDANSETRON INJ 2 MG/ML INJ 2 ML 4 MG IV (12:01)
--- NOTE | 2024-04-08 12:05 | PC.NURSE ---
pt denies further complaint uf goal lowered to 1.5L, UF turned back on will cont.to monitor
[2024-04-08] MEDS: HEPARIN SOD INJ 1000 UNIT/ML VIAL 10 ML 3500 UNIT INDWELLCAT (13:44)
[2024-04-08] MEDS: ceFAZolin/D5W 1 GM IVPB 1 GM/50 ML BAG IV (14:15)
--- NOTE | 2024-04-08 15:56 | PC.SS ---
SS was informed by [employer] that [facility] is only showing availability for a MWF shift 4 schedule and it appears the patient has a schedule preference for MWF shift 1 or 2. SS met with patient at bedside to update her and patient reported she rather go to [place] due to her no being able to take shift 4. SS contacted [facility] through [employer] portal and now patient will be routed to [facility]. Patient could not get chair time until lab test is available.
[2024-04-08] MEDS: CYCLObenzaPRINE 5 MG TABLET 10 MG PO (20:55)
[2024-04-08] MEDS: MELATONIN 3 MG TABLET PO (20:56)
[2024-04-09] VITALS (9 sets, daily range): BP systolic 107–158; BP diastolic 73–89; PULSE 86–105; RESP 12–96; TEMP 35.9–36.5; O2SAT 95–97; BMI 31.9
[2024-04-09] MEDS: HEPARIN SOD INJ 5000 UNIT/ML VIAL SC ×3 (05:15→21:15)
[2024-04-09 05:58] LABS: Basophils # (Auto) 0.2 Thou/mm3 (0.0-0.2); Basophils % (Auto) 1 % (0-2.5); Eosinophils # (Auto) 0.5 Thou/mm3 (0.0-0.5); Eosinophils % (Auto) 2 % (0-10); Hematocrit 26.9 % (36.0-46.0); Hemoglobin 8.8 g/dL (12.0-16.0); Immature Granulocytes % (Auto) 7 % (0-0); Immature Granulocytes Auto 1.51 Thou/mm3 (0.00-0.00); Lymphocytes % (Auto) 27 % (10-50); Mean Corpuscular HGB Conc 32.7 g/dl (31.0-37.0); Mean Corpuscular Hemoglobin 29.1 pg (25.0-35.0); Mean Corpuscular Volume 89 fL (80-100); Monocytes # (Auto) 1.5 Thou/mm3 (0.0-0.8); Monocytes % (Auto) 7 % (0-12); Neutrophils # (Auto) 12.3 Thou/mm3 (1.8-7.7); Neutrophils % (Auto) 56 % (37-80); Nucleated Red Blood Cell # 0.05 Thou/mm3 (0.00-0.00); Nucleated Red Blood Cell % 0 /100 WBC (0); Platelet Count 474 Thou/mm3 (140-440); RDW Standard Deviation 46.2 fL (36.4-46.3); Red Blood Count 3.02 Miln/mm3 (4.00-5.20); White Blood Count 21.8 Thou/mm3 (3.6-11.0)
[2024-04-09 06:22] LABS: Alanine Aminotransferase 21 U/L (10-49); Albumin, Serum 3.8 gm/dL (3.5-5.0); Albumin/Globulin Ratio 1.3 (1.2-2.2); Alkaline Phosphatase 137 U/L (46-116); Anion Gap 9 (7-16); Aspartate Amino Transferase 20 U/L (0-34); BUN/Creatinine Ratio 5 Ratio (12-20); Bilirubin,Total 0.4 mg/dL (0.3-1.2); Blood Urea Nitrogen 23 mg/dL (9-23); Calcium 8.5 mg/dL (8.3-10.6); Calcium (Corrected) 8.7 mg/dL (8.5-10.1); Carbon Dioxide 28.1 mMol/L (20.0-31.0); Chloride 97 mMol/L (98-107); Creatinine (Component) 4.4 mg/dL (0.6-1.3); Estimated Creatinine Clearance 15.3 mL/min (>60); Globulin 2.9 gm/dL (2.3-3.5); Glucose 253 mg/dL (74-106); Magnesium 1.9 mg/dL (1.6-2.6); Osmolality,Calculated 280 (275-295); Phosphorous 2.9 mg/dL (2.4-5.1); Potassium 3.8 mMol/L (3.4-5.1); Sodium 134 mMol/L (136-145); Total Protein 6.7 gm/dL (5.7-8.2); eGFR 12 See Note
[2024-04-09] MEDS: INSULIN LISPRO (AdmeLOG) 1 UNIT/0.01 ML UNIT SC ×2 (07:40→11:58)
[2024-04-09] MEDS: NIFEdipine XL 30 MG TABCR PO (08:08)
[2024-04-09] MEDS: SENNA TABLET 1 TAB PO (08:08)
[2024-04-09] MEDS: PANTOPRAZOLE 40 MG TABLET PO (08:08)
[2024-04-09] MEDS: CALCIUM ACETATE 667 MG TABLET PO ×3 (08:08→18:33)
[2024-04-09] MEDS: DOXYCYCLINE 100 MG TABLET PO ×2 (08:08→21:15)
[2024-04-09] MEDS: ceFAZolin/D5W 1 GM IVPB 1 GM/50 ML BAG IV (08:09)
--- NOTE | 2024-04-09 08:57 | PC.SS ---
SS follow up note; SS was informed by Dr. Sauer that they were told by Lab that the HepBcAb results won't be in until Friday.
--- NOTE | 2024-04-09 09:47 | ESPR_ITS ---
<Statement entered by Carlos Ortega MD - 04/09/24 17:04> I have discussed and was present for the essential components of the history, physical examination, diagnosis, and treatment plan with the resident. I agree with the patient's care as documented by the resident and amended herein by me. Carlos Ortega MD. <Statement entered by Charles Kathleen MD - 04/09/24 14:27> Patient was seen and examined at the bedside. Patient was doing well and had no active concerns. She was only concern for getting discharged before the weekend because of her birthday nearby. She was explained that we need to wait for hepatitis B/C screening panel to come back for insurance authorization for outpatient dialysis chair set up which will not be done until Friday. head screen worker was informed regarding patient's current concern and she explained that if patient wants to leave hospital it would be AMA only. Patient later on agreeable to stay and will be anticipating discharge by Friday after results. All labs and orders were reviewed. I saw and examined the patient, and I agree with current management stated by Dr Gavin MD,PGY1. Plan of care was discussed with the attending physician and resident physician. Disclaimer: Despite multiple revisions, due to the dictation software being used, the document bellow may not be free of grammatical errors including phonetic/typographic errors. However, this does not deter from our commitment to providing health care in the patient's best interest in mind. Dr. Frannie MD, PGY 2 Documentation for date of: 04/09/24 Subjective Subjective Interval history: Patient was seen and examined at bedside this AM. No acute exents overnight. Patient tolerating diet, adequate urine output and mentation is at baseline. Patient has no complaints but is anxious to be discharged soon as her birthday is next week Friday and she wants to make preparations Patient's Hb 8.8 stable stable post 1 unit PRBC 12/ Fasting blood glucose 253 this morning. Patient required 16 units of sliding scale insulin yesterday Will start patient on insulin lispro 5 units 3 times daily WM from tomorrow. Patient on IV iron started on [04/04 - Also on Neupogen during dialysis sessions Hepatitis B core IgM still pending as this is a requirement for outpatient dialysis at the center her insurance approved The lab was contacted and they informed us that the earliest possible date of her results would be on Thursday 04/12. ID, Dr Yuan recommended 6 weeks of treatment with doxycycline 100 Mg p.o. twice daily and Keflex during dialysis sessions. 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 Nose: No nasal discharge. Mouth/Throat: Moist mucous membranes, poor dentation no redness, no lesions. Neck: Neck supple, non-tender, no cervical lymphadenopathy. Lungs: Bronchial breath sounds on auscultation, No accessory muscle use. RIJ catheter insitu. Exit site clean Cardio: Normal S1/S2, regular rhythm, no murmurs, no JVD Abdomen: Soft, non-tender, no palpable masses, peristalsis present, no guarding or rebound. Extremities L AKA, no peripheral edema , non-tender, peripheral pulses present R LE. Base of R foot ulcer, eschar, non purulent Skin: No rashes, no lesions, warm to touch. Neuro: No focal neurological deficits. motor and sensory intact Psych: Cooperative, appropriate mood and effect. Objective Labs 04/09/24 04:35 04/09/24 04:35 Labs: Laboratory Results - last 24 hr 04/09/24 04:35 WBC 21.8 H RBC 3.02 L Hgb 8.8 L Hct 26.9 L MCV 89 MCH 29.1 MCHC 32.7 RDW Std Deviation 46.2 Plt Count 474 H Neut % (Auto) 56 Lymph % (Auto) 27 Otero % (Auto) 7 Eos % (Auto) 2 Baso % (Auto) 1 Neut # (Auto) 12.3 H Lymph # (Auto) 6.0 H Otero # (Auto) 1.5 H Eos # (Auto) 0.5 Baso # (Auto) 0.2 Immature Gran # (Auto) 1.51 H Absolute Nucleated RBC 0.05 H Immature Gran % 7 H Nucleated RBC % 0 Sodium 134 L Potassium 3.8 Chloride 97 L Carbon Dioxide 28.1 Anion Gap 9 BUN 23 Creatinine 4.4 H* D Estim Creat Clear Calc 15.3 L eGFR 12 L* BUN/Creatinine Ratio 5 L Glucose 253 H D Calculated Osmolality 280 Calcium 8.5 Corrected Calcium 8.7 Phosphorus 2.9 Magnesium 1.9 Total Bilirubin 0.4 AST 20 ALT 21 Alkaline Phosphatase 137 H Total Protein 6.7 Albumin 3.8 Globulin 2.9 Albumin/Globulin Ratio 1.3 ABG Interpretation ABG results: 03/31/24 04/01/24 23:41 09:24 ABG pH 7.30 L 7.31 L ABG pCO2 31 L 31 L ABG pO2 171 H 98 D ABG HCO3 15 L 16 L ABG O2 Saturation 100 H 98 ABG Base Excess -10 L -10 L Quality Measures Quality Measures VTE prophylaxis (Heparin subcutaneously) Assessment & Plan Assessment Current Active Medications: Generic Name Dose Route Start Last Admin Trade Name Freq PRN Reason Stop Dose Admin Acetaminophen 650 mg 04/01/24 15:50 Acetaminophen 325 Mg Tablet PO 05/01/24 02:10 Q6H PRN PAIN(1-3) OR FEVER > 101 Albuterol/Ipratropium 3 ml 04/02/24 11:02 Albuterol/Ipratropium (Duoneb) Rt Maggie 3 Ml Nebu INH 05/01/24 02:59 Q4HRRT PRN sob Calcium Acetate 667 mg 04/06/24 17:30 04/09/24 08:08 Calcium Acetate 667 Mg Tablet PO 05/06/24 17:29 667 mg TIDWM NASREEN Administration Cyclobenzaprine HCl 10 mg 04/03/24 21:00 04/08/24 20:55 Cyclobenzaprine 5 Mg Tablet PO 05/03/24 20:59 10 mg HS NASREEN Administration Dextrose 25 ml 04/01/24 02:16 04/06/24 07:09 Dextrose 50%-Water Inj 50 Ml Syringe IV 05/01/24 02:15 25 ml Q15MIN PRN Administration BG 50-70 responsive npo pt Dextrose 50 ml 04/01/24 02:16 Dextrose 50%-Water Inj 50 Ml Syringe IV 05/01/24 02:15 Q15MIN PRN BG <50 OR BG <70 & pt unresponsive Doxycycline Hyclate 100 mg 04/07/24 21:00 04/09/24 08:08 Doxycycline 100 Mg Tablet PO 05/13/24 12:00 100 mg BID NASREEN Administration Glucagon 1 mg 04/01/24 02:16 Glucagon Inj 1 Mg Vial IM Q15MIN PRN BG <70, and no IV access Heparin Sodium (Porcine) 5,000 unit 04/01/24 06:00 04/09/24 05:15 Heparin Sod Inj 5000 Unit/Ml Vial SC 04/15/24 05:59 5,000 unit Q8HR NASREEN Administration Heparin Sodium (Porcine) 3,500 unit 04/06/24 10:34 04/08/24 13:44 Heparin Sod Inj 1000 Unit/Ml Vial 10 Ml INDWELLCAT 04/11/24 10:33 3,500 unit X1 PRN Administration DIALYSIS Albumin Human 25 gm in 100 mls @ 100 mls/min 04/03/24 07:21 04/08/24 11:57 Albuminar-25 Ivpb IV 100 mls/min PRN PRN Administration DIALYSIS Cefazolin Sodium/Dextrose 1 gm in 50 mls @ 100 mls/hr 04/08/24 09:00 04/09/24 08:09 Ancef Ivpb IV 04/15/24 08:59 100 mls/hr DAILY NASREEN Administration Magnesium Sulfate 2 gm in 50 mls @ 25 mls/hr 04/09/24 08:03 04/09/24 09:30 Magnesium Sulfate Ivpb IV 04/09/24 10:02 Not Given X1 ONE Insulin Glargine 30 unit 04/06/24 21:00 04/08/24 21:06 Insulin Glargine (Lantus) 5 Unit/0.05 Ml (Per 5 Units) SC 05/06/24 20:59 Not Given HS NASREEN Insulin Human Lispro 0 unit 04/02/24 10:59 04/09/24 07:40 Insulin Lispro (Admelog) 1 Unit/0.01 Ml Unit SC 05/01/24 20:59 8 unit ACHS NASREEN Administration Protocol Melatonin 3 mg 04/03/24 02:45 04/08/24 20:56 Melatonin 3 Mg Tablet PO 05/03/24 02:44 3 mg HS NASREEN Administration Nifedipine 30 mg 04/03/24 09:00 04/09/24 08:08 Nifedipine Xl 30 Mg Tabcr PO 05/03/24 08:59 30 mg QDAY NASREEN Administration Ondansetron HCl 4 mg 04/01/24 02:11 04/08/24 12:01 Ondansetron Inj 2 Mg/Ml Inj 2 Ml IV 05/01/24 02:10 4 mg Q6H PRN Administration NAUSEA OR VOMITING Protocol Pantoprazole Sodium 40 mg 04/01/24 09:00 04/09/24 08:08 Pantoprazole 40 Mg Tablet PO 05/01/24 08:59 40 mg QDAY NASREEN Administration Sennosides 1 tab 04/01/24 09:00 04/09/24 08:08 Senna Tablet PO 05/01/24 08:59 1 tab QDAY NASREEN Administration Protocol Plan Patient is a 43-year-old female past medical history of essential hypertension, IDDM [6.8], diabetic neuropathy s/p left AKA, chronic osteomyelitis of right first metatarsal and proximal phalanx of first digit and second distal metatarsal amputation, CKD stage V and asthma. Presented to the ED with a chief complaint of SOB and was admitted for acute respiratory failure with hypoxia secondary to sepsis due to CAP versus asthma exacerbation. 1. Acute respiratory failure with hypoxia - resolving Secondary to 2. Sepsis secondary to suspected GNR pneumonia versus asthma exacerbation?resolved 3. Community-acquired pneumonia?resolving 4. Leukocytosis - chronic Patient had SOB on admission and a history of sick contacts, her nephews. Associated with generalized weakness, body aches and productive cough. On exam patient mild wheezing. On admission patient met SIRS 2/4 for HR 113 and WBC 18.3 Source of infection CAP Chest x-ray was significant for bibasilar consolidation, no pleural effusion, pulmonary edema. Patient was started on hemodialysis this admission a sign of end organ damage Blood and urine cultures taken on 03/31 were both negative. Influenza A and B were also both negative Patient received 3 days of prednisone 20 Mg p.o. daily discontinued on 04/03. Leukocytosis most likely secondary to steroid use and chronic osteomyelitis Blood smear completed on 04/01 findings include: ? Severe normocytic anemia without hemolysis. ? Marked, mature neutrophilic leukocytosis. ? Moderate thrombocytosis. Pathologist recommended a metal baler referral as these findings are chronic and have persisted for several days. Patient has no complaints but is anxious to be discharged soon as her birthday is next week Friday and she wants to make preparations Plan: ? Completed 3 days azithromycin 500 Mg p.o. daily [04/01 - 04/04] ? Completed 5 days ceftriaxone 1 g IV daily started on [04/01?03/06] ? Continue to monitor CBC ? Supplemental O2 as necessary 4. Asthma exacerbation -resolved On presentation patient was SOB associated with a productive cough for the past few days. His sick contacts were her both nephews who are sick at home with the flu. Patient's home medication nebulizer machine with albuterol solution as needed. Patient received 3 days of prednisone 20 Mg p.o. daily and is currently no longer complaining of SOB and has no wheeze heard on exam. Plan: ? DuoNebs every 6 hourly as needed ? Continue supplemental O2 as necessary 5. CKD stage V on hemodialysis via RIJ permanent Catheter 6. R femoral temporary catheter s/p removal 04/06 Patient's baseline CR between 3?5. On this admission patient's CR 6.1. Most likely secondary to longstanding diabetic and hypertensive nephropathy. Nephrology, Dr. Livingston was consulted who recommended patient be started on hemodialysis. Hepatitis B, C were negative with hep B antibody nonreactive. PPD negative Patient was administered hepatitis B vaccine 04/04. Patient on IV iron started on [04/04 - Also on Neupogen during dialysis sessions Patient had placement of right IJ PermCath 04/05 and removal of femoral temporary catheter 04/06 Hepatitis B core IgM ordered as this is a requirement for outpatient dialysis at the center her insurance approved ESR elevated at 80 and CRP elevated at 6.6 Currently Dialysing //Fri Hepatitis B core IgM still pending as this is a requirement for outpatient dialysis at the center her insurance approved The lab was contacted and they informed us that the earliest possible date of her results would be on Thursday 04/12. Plan: ? head screen worker working on outpatient chair time for dialysis ? Hepatitis B core IgM pending ? Continue sevelamer 800 mg p.o. 3 times daily ? Continue hemodialysis as scheduled ? Avoid nephrotoxic agents ? Renally dose medications ? Nephrology consulted, appreciate recommendations 6. NAGMA?resolved On admission bicarb 14.7. Currently bicarb 27.8 7. IDDM type II [6.8] 8. Diabetic neuropathy 9. 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 History of chronic osteomyelitis right first digit Patient's home medication insulin glargine 38 units subcut at night and insulin HR as needed. Patient's HbA1c on admission 6.8. Foot x-ray was significant for right metacarpal joint osteomyelitis Fasting blood glucose 253 this morning. Patient required 16 units of sliding scale insulin yesterday Will start patient on insulin lispro 5 units 3 times daily WM from tomorrow. ID, Dr Yuan recommended 6 weeks of treatment with doxycycline 100 Mg p.o. twice daily and Keflex during dialysis sessions. To complete treatment on 05/13/2024 Plan: - Continue insulin glargine 30 units at bedtime ? To start patient on insulin lispro 5 units 3 times daily WM from tomorrow ? Discontinued insulin sliding scale ? Low consistent carb diet ? D3 cefazolin 1 g IV daily started on [04/07? as per ID recommendations ? D3 doxycycline 100 Mg p.o. twice daily started on [04/07?as per ID recommendations ? Upon discharge patient to continue with doxycycline 100 Mg p.o. twice daily for 6 weeks to complete on 05/13/2024 along with Keflex during dialysis sessions. - Infectious disease recommended oral suppression as patient has been previously treated with IV antibiotics for osteomyelitis in 2022. - General surgery assessed patient and does not recommend any surgical intervention. Prescribed Santyl daily for wound care ? General Surgery was consulted, appreciate recommendations. ? Infectious disease was consulted, appreciate recommendations. 11. Essential hypertension On admission BP 173/90. Currently BP 107/73 Home medication amlodipine 2.5 Mg p.o. daily Plan: ? Continue nifedipine 30 Mg p.o. daily 12. Normocytic anemia On admission Hb 8.1. Currently Hb 8.8 DDx: RUTH ANN, blood loss anemia, anemia of chronic disease, thalassemia, lead poisoning. Iron panel significant for FE 12, TIBC 207, ferritin 219. Mixed picture of iron deficiency and anemia of chronic disease. Patient on IV iron started on [04/04 - Patient's Hb 8.8 this morning post 1 unit PRBC 04/05 Plan: - Stool for occult blood ordered ? Continue IV iron started on [04/04? ? Continue Epogen during HD sessions ? Continue to monitor CBC 13. Hypocalcemia- chronic On admission corrected Ca 7.2, currently corrected Ca 9 DDx: Hypoparathyroidism, vitamin D deficiency, acute renal failure, hypoalbuminemia, sepsis Most likely secondary to CKD stage V now requiring dialysis Calcium gluconate IV 10% x 1 given on 04/04 and 04/05 Currently corrected Ca 8.7 Plan: - Discontinued calcium carbonate 1g po BIDWM ? Continue calcium acetate 667 g p.o. 3 times daily WM as patient is CKD on HD and also at risk of hyperphosphatemia. Calcium acetate also helps to lower serum phosphorus ? Monitor calcium on CMP tomorrow 14. History of retinal detachment Follow-up outpatient with ophthalmology Health maintenance: Disposition: Pending outpatient chair time once hep B core antibody results available. To complete 6 weeks of treatment with doxycycline 100 Mg p.o. twice daily until 05/13/2024 Diet: Consistent carb low, renal Lines: pIVs GI Prophylaxis: Protonix Thrombo Prophylaxis: Heparin Code status: FULL CODE Plan of care discussed with Attending Dr. Ortega and PGY2 Dr. Frannie Barton MD PGY 1
[2024-04-09] MEDS: LORazepam 0.5 MG TABLET 0.25 MG PO (10:09)
--- NOTE | 2024-04-09 17:48 | PC.CM ---
Patient will not be ready for discharge until Friday per doctors notes. Patient may need PO ABX and not IV. I will continue to follow.
[2024-04-09] MEDS: CYCLObenzaPRINE 5 MG TABLET 10 MG PO (21:15)
[2024-04-09] MEDS: INSULIN GLARGINE (Lantus) 5 UNIT/0.05 ML (PER 5 UNITS) 30 UNIT SC (21:15)
[2024-04-09] MEDS: MELATONIN 3 MG TABLET PO (21:15)
[2024-04-09 22:06] LABS: HCV RNA, PCR <15 NOT DETECTED IU/mL
[2024-04-10] VITALS (25 sets, daily range): BP systolic 91–162; BP diastolic 48–99; PULSE 83–109; RESP 18–98; TEMP 35.9–36.6; O2SAT 94–98
[2024-04-10] MEDS: LORazepam 0.5 MG TABLET 0.25 MG PO (01:35)
[2024-04-10] MEDS: INSULIN LISPRO (AdmeLOG) 1 UNIT/0.01 ML UNIT 5 UNIT SC ×3 (05:11→18:19)
[2024-04-10] MEDS: HEPARIN SOD INJ 5000 UNIT/ML VIAL SC ×3 (05:12→21:32)
[2024-04-10 05:43] LABS: Basophils # (Auto) 0.1 Thou/mm3 (0.0-0.2); Basophils % (Auto) 1 % (0-2.5); Eosinophils # (Auto) 0.5 Thou/mm3 (0.0-0.5); Eosinophils % (Auto) 2 % (0-10); Hematocrit 27.9 % (36.0-46.0); Immature Granulocytes % (Auto) 7 % (0-0); Lymphocytes # (Auto) 5.4 Thou/mm3 (1.0-4.8); Lymphocytes % (Auto) 22 % (10-50); Mean Corpuscular HGB Conc 32.3 g/dl (31.0-37.0); Mean Corpuscular Hemoglobin 28.7 pg (25.0-35.0); Mean Corpuscular Volume 89 fL (80-100); Monocytes # (Auto) 1.4 Thou/mm3 (0.0-0.8); Monocytes % (Auto) 6 % (0-12); Neutrophils # (Auto) 15.5 Thou/mm3 (1.8-7.7); Neutrophils % (Auto) 63 % (37-80); Nucleated Red Blood Cell # 0.03 Thou/mm3 (0.00-0.00); Nucleated Red Blood Cell % 0 /100 WBC (0); Platelet Count 485 Thou/mm3 (140-440); RDW Standard Deviation 45.9 fL (36.4-46.3); Red Blood Count 3.14 Miln/mm3 (4.00-5.20); White Blood Count 24.6 Thou/mm3 (3.6-11.0)
[2024-04-10 06:06] LABS: Anion Gap 10 (7-16); BUN/Creatinine Ratio 7 Ratio (12-20); Blood Urea Nitrogen 40 mg/dL (9-23); Calcium 8.6 mg/dL (8.3-10.6); Carbon Dioxide 25.5 mMol/L (20.0-31.0); Chloride 100 mMol/L (98-107); Creatinine (Component) 5.5 mg/dL (0.6-1.3); Estimated Creatinine Clearance 12.4 mL/min (>60); Glucose 180 mg/dL (74-106); Osmolality,Calculated 284 (275-295); Potassium 3.6 mMol/L (3.4-5.1); Sodium 135 mMol/L (136-145); eGFR 9 See Note
[2024-04-10] MEDS: NIFEdipine XL 30 MG TABCR PO (07:59)
[2024-04-10] MEDS: PANTOPRAZOLE 40 MG TABLET PO (08:00)
[2024-04-10] MEDS: DOXYCYCLINE 100 MG TABLET PO ×2 (08:00→20:25)
[2024-04-10] MEDS: SENNA TABLET 1 TAB PO (08:00)
[2024-04-10] MEDS: ceFAZolin/D5W 1 GM IVPB 1 GM/50 ML BAG IV (08:01)
[2024-04-10] MEDS: CALCIUM ACETATE 667 MG TABLET PO ×2 (08:01→18:19)
[2024-04-10] MEDS: ALBUMIN HUMAN 25% IVPB 25 GM/100 ML BTL IV (12:56)
--- NOTE | 2024-04-10 13:02 | PC.NURSE ---
Goal decreased to 1.5 L, as BP dropped.
--- NOTE | 2024-04-10 13:03 | PC.NURSE ---
BP low. Albumin 25% given IVP. Multiple arterial alarms, blood speed reduced to 200.
[2024-04-10] MEDS: HEPARIN SOD INJ 1000 UNIT/ML VIAL 10 ML 3500 UNIT INDWELLCAT (15:16)
--- NOTE | 2024-04-10 15:17 | PC.NURSE ---
pt returned from HD, a/o x4, no distress, 1.4 liters removed
--- NOTE | 2024-04-10 15:46 | ESPR_ITS ---
<Statement entered by Carlos Ortega MD - 04/11/24 17:14> I have discussed and was present for the essential components of the history, physical examination, diagnosis, and treatment plan with the resident. I agree with the patient's care as documented by the resident and amended herein by me. Carlos Ortega MD FACP. Documentation for date of: 04/11/24 Subjective Subjective Interval history: Patient was seen and examined at the bedside this a.m. No acute overnight events were reported. She was tolerating her diet well and had no active complaints. She is waiting for getting discharged to home. Hemoglobin was stable. All labs and orders were reviewed. 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 Nose: No nasal discharge. Mouth/Throat: Moist mucous membranes, poor dentation no redness, no lesions. Neck: Neck supple, non-tender, no cervical lymphadenopathy. Lungs: Bronchial breath sounds on auscultation, No accessory muscle use. RIJ catheter insitu. Exit site clean Cardio: Normal S1/S2, regular rhythm, no murmurs, no JVD Abdomen: Soft, non-tender, no palpable masses, peristalsis present, no guarding or rebound. Extremities L AKA, no peripheral edema , non-tender, peripheral pulses present R LE. Base of R foot ulcer, eschar, non purulent Skin: No rashes, no lesions, warm to touch. Neuro: No focal neurological deficits. motor and sensory intact Psych: Cooperative, appropriate mood and effect. Objective Labs 04/11/24 04:52 04/11/24 04:52 Labs: Laboratory Results - last 24 hr 04/11/24 04:52 WBC 27.4 H RBC 3.09 L Hgb 8.9 L Hct 27.6 L MCV 89 MCH 28.8 MCHC 32.2 RDW Std Deviation 46.3 Plt Count 495 H Neut % (Auto) 64 Lymph % (Auto) 23 [place] % (Auto) 6 Eos % (Auto) 2 Baso % (Auto) 1 Neut # (Auto) 17.4 H Lymph # (Auto) 6.2 H [place] # (Auto) 1.6 H Eos # (Auto) 0.4 Baso # (Auto) 0.2 Immature Gran # (Auto) 1.51 H Absolute Nucleated RBC 0.00 Immature Gran % 6 H Nucleated RBC % 0 Sodium 134 L Potassium 3.8 Chloride 99 Carbon Dioxide 24.7 Anion Gap 10 BUN 28 H Creatinine 4.4 H* D Estim Creat Clear Calc 15.5 L eGFR 12 L* BUN/Creatinine Ratio 6 L Glucose 175 H Calculated Osmolality 277 Calcium 9.2 ABG Interpretation ABG results: 03/31/24 04/01/24 23:41 09:24 ABG pH 7.30 L 7.31 L ABG pCO2 31 L 31 L ABG pO2 171 H 98 D ABG HCO3 15 L 16 L ABG O2 Saturation 100 H 98 ABG Base Excess -10 L -10 L Quality Measures Quality Measures VTE prophylaxis (Heparin subcutaneously) Assessment & Plan Assessment Current Active Medications: Generic Name Dose Route Start Last Admin Trade Name Freq PRN Reason Stop Dose Admin Acetaminophen 650 mg 04/01/24 15:50 Acetaminophen 325 Mg Tablet PO 05/01/24 02:10 Q6H PRN PAIN(1-3) OR FEVER > 101 Albuterol/Ipratropium 3 ml 04/02/24 11:02 Albuterol/Ipratropium (Duoneb) Rt Maggie 3 Ml Nebu INH 05/01/24 02:59 Q4HRRT PRN sob Calcium Acetate 667 mg 04/06/24 17:30 04/11/24 11:26 Calcium Acetate 667 Mg Tablet PO 05/06/24 17:29 667 mg TIDWM NASREEN Administration Cyclobenzaprine HCl 10 mg 04/03/24 21:00 04/10/24 20:25 Cyclobenzaprine 5 Mg Tablet PO 05/03/24 20:59 10 mg HS NASREEN Administration Dextrose 25 ml 04/01/24 02:16 04/06/24 07:09 Dextrose 50%-Water Inj 50 Ml Syringe IV 05/01/24 02:15 25 ml Q15MIN PRN Administration BG 50-70 responsive npo pt Dextrose 50 ml 04/01/24 02:16 Dextrose 50%-Water Inj 50 Ml Syringe IV 05/01/24 02:15 Q15MIN PRN BG <50 OR BG <70 & pt unresponsive Doxycycline Hyclate 100 mg 04/07/24 21:00 04/11/24 08:32 Doxycycline 100 Mg Tablet PO 05/13/24 12:00 100 mg BID NASREEN Administration Glucagon 1 mg 04/01/24 02:16 Glucagon Inj 1 Mg Vial IM Q15MIN PRN BG <70, and no IV access Heparin Sodium (Porcine) 5,000 unit 04/01/24 06:00 04/11/24 13:37 Heparin Sod Inj 5000 Unit/Ml Vial SC 04/15/24 05:59 5,000 unit Q8HR NASREEN Administration Cefazolin Sodium/Dextrose 1 gm in 50 mls @ 100 mls/hr 04/08/24 09:00 04/11/24 08:32 Ancef Ivpb IV 04/15/24 08:59 100 mls/hr DAILY NASREEN Administration Insulin Glargine 30 unit 04/06/24 21:00 04/10/24 20:30 Insulin Glargine (Lantus) 5 Unit/0.05 Ml (Per 5 Units) SC 05/06/24 20:59 30 unit HS NASREEN Administration Insulin Human Lispro 5 unit 04/10/24 05:00 04/11/24 11:26 Insulin Lispro (Admelog) 1 Unit/0.01 Ml Unit SC 05/10/24 04:59 5 unit TIDWM NASREEN Administration Melatonin 3 mg 04/03/24 02:45 04/10/24 20:25 Melatonin 3 Mg Tablet PO 05/03/24 02:44 3 mg HS NASREEN Administration Nifedipine 30 mg 04/03/24 09:00 04/11/24 08:32 Nifedipine Xl 30 Mg Tabcr PO 05/03/24 08:59 30 mg QDAY NASREEN Administration Ondansetron HCl 4 mg 04/01/24 02:11 04/08/24 12:01 Ondansetron Inj 2 Mg/Ml Inj 2 Ml IV 05/01/24 02:10 4 mg Q6H PRN Administration NAUSEA OR VOMITING Protocol Pantoprazole Sodium 40 mg 04/01/24 09:00 04/11/24 08:32 Pantoprazole 40 Mg Tablet PO 05/01/24 08:59 40 mg QDAY NASREEN Administration Sennosides 1 tab 04/01/24 09:00 04/11/24 08:32 Senna Tablet PO 05/01/24 08:59 1 tab QDAY NASREEN Administration Protocol Plan Patient is a 43-year-old female past medical history of essential hypertension, IDDM [6.8], diabetic neuropathy s/p left AKA, chronic osteomyelitis of right first metatarsal and proximal phalanx of first digit and second distal metatarsal amputation, CKD stage V and asthma. Presented to the ED with a chief complaint of SOB and was admitted for acute respiratory failure with hypoxia secondary to sepsis due to CAP versus asthma exacerbation. #Acute respiratory failure with hypoxia - resolving Likely Secondary to #Sepsis secondary to suspected GNR pneumonia versus asthma exacerbation?resolved #Community-acquired pneumonia?resolving #Leukocytosis - chronic Patient had SOB on admission and a history of sick contacts, her nephews. Associated with generalized weakness, body aches and productive cough. On exam patient mild wheezing. On admission patient met SIRS 2/4 for HR 113 and WBC 18.3 Source of infection CAP Chest x-ray was significant for bibasilar consolidation, no pleural effusion, pulmonary edema. Patient was started on hemodialysis this admission a sign of end organ damage Blood and urine cultures taken on 03/31 were both negative. Influenza A and B were also both negative Patient received 3 days of prednisone 20 Mg p.o. daily discontinued on 04/03. Leukocytosis most likely secondary to steroid use and chronic osteomyelitis Blood smear completed on 04/01 findings include: ? Severe normocytic anemia without hemolysis. ? Marked, mature neutrophilic leukocytosis. ? Moderate thrombocytosis. Pathologist recommended a machine i cutter referral as these findings are chronic and have persisted for several days. Patient has no complaints but is anxious to be discharged soon as her birthday is next week Friday and she wants to make preparations Plan: ? Completed 3 days azithromycin 500 Mg p.o. daily [04/01 - 04/04] ? Completed 5 days ceftriaxone 1 g IV daily started on [04/01?03/06] ? Continue to monitor CBC ? Supplemental O2 as necessary #Asthma exacerbation -resolved On presentation patient was SOB associated with a productive cough for the past few days. His sick contacts were her both nephews who are sick at home with the flu. Patient's home medication nebulizer machine with albuterol solution as needed. Patient received 3 days of prednisone 20 Mg p.o. daily and is currently no longer complaining of SOB and has no wheeze heard on exam. Plan: ? DuoNebs every 6 hourly as needed ? Continue supplemental O2 as necessary #CKD stage V on hemodialysis via RIJ permanent Catheter #R femoral temporary catheter s/p removal 04/06 Patient's baseline CR between 3?5. On this admission patient's CR 6.1. Most likely secondary to longstanding diabetic and hypertensive nephropathy. Nephrology, Dr. Livingston was consulted who recommended patient be started on hemodialysis. Hepatitis B, C were negative with hep B antibody nonreactive. PPD negative Patient was administered hepatitis B vaccine 04/04. Patient on IV iron started on [04/04 - Also on Neupogen during dialysis sessions Patient had placement of right IJ PermCath 04/05 and removal of femoral temporary catheter 04/06 Hepatitis B core IgM ordered as this is a requirement for outpatient dialysis at the center her insurance approved ESR elevated at 80 and CRP elevated at 6.6 Currently Dialysing //Fri Hepatitis B core IgM still pending as this is a requirement for outpatient dialysis at the center her insurance approved The lab was contacted and they informed us that the earliest possible date of her results would be on Thursday 04/12. Plan: ? family caseworker working on outpatient chair time for dialysis ? Hepatitis B core IgM pending ? Continue sevelamer 800 mg p.o. 3 times daily ? Continue hemodialysis as scheduled ? Avoid nephrotoxic agents ? Renally dose medications ? Nephrology consulted, appreciate recommendations # NAGMA?resolved # IDDM type II [6.8] # Diabetic neuropathy #History of left BKA and right foot digit amputations #History of chronic osteomyelitis right first digit Patient's home medication insulin glargine 38 units subcut at night and insulin HR as needed. Patient's HbA1c on admission 6.8.Foot x-ray was significant for right metacarpal joint osteomyelitisFasting blood glucose 253 this morning. Patient required 16 units of sliding scale insulin yesterday Will start patient on insulin lispro 5 units 3 times daily WM from tomorrow.ID, Dr Yuan recommended 6 weeks of treatment with doxycycline 100 Mg p.o. twice daily and Keflex during dialysis sessions. To complete treatment on 05/13/2024 Plan: - Continue insulin glargine 30 units at bedtime ? To start patient on insulin lispro 5 units 3 times daily WM from tomorrow ? Discontinued insulin sliding scale ? Low consistent carb diet ? D3 cefazolin 1 g IV daily started on [04/07? as per ID recommendations ? D3 doxycycline 100 Mg p.o. twice daily started on [04/07?as per ID recommendations ? Upon discharge patient to continue with doxycycline 100 Mg p.o. twice daily for 6 weeks to complete on 05/13/2024 along with Keflex during dialysis sessions. - Infectious disease recommended oral suppression as patient has been previously treated with IV antibiotics for osteomyelitis in 2022. - General surgery assessed patient and does not recommend any surgical intervention. Prescribed Santyl daily for wound care ? General Surgery was consulted, appreciate recommendations. ? Infectious disease was consulted, appreciate recommendations. # Essential hypertension On admission BP 173/90. Currently BP 107/73 Home medication amlodipine 2.5 Mg p.o. daily Plan: ? Continue nifedipine 30 Mg p.o. daily #Normocytic anemia On admission Hb 8.1. Currently Hb 8.8 DDx: RUTH ANN, blood loss anemia, anemia of chronic disease, thalassemia, lead poisoning. Iron panel significant for FE 12, TIBC 207, ferritin 219. Mixed picture of iron deficiency and anemia of chronic disease. Patient on IV iron started on [04/04 - Patient's Hb 8.8 this morning post 1 unit PRBC 04/05 Plan: - Stool for occult blood ordered ? Continue IV iron started on [04/04? ? Continue Epogen during HD sessions ? Continue to monitor CBC #Hypocalcemia- chronic On admission corrected Ca 7.2, currently corrected Ca 9 DDx: Hypoparathyroidism, vitamin D deficiency, acute renal failure, hypoalbuminemia, sepsis Most likely secondary to CKD stage V now requiring dialysis Calcium gluconate IV 10% x 1 given on 04/04 and 04/05 Currently corrected Ca 8.7 Plan: - Discontinued calcium carbonate 1g po BIDWM ? Continue calcium acetate 667 g p.o. 3 times daily WM as patient is CKD on HD and also at risk of hyperphosphatemia. Calcium acetate also helps to lower serum phosphorus ? Monitor calcium on CMP tomorrow #History of retinal detachment Follow-up outpatient with ophthalmology Health maintenance: Disposition: Pending outpatient chair time once hep B core antibody results available. To complete 6 weeks of treatment with doxycycline 100 Mg p.o. twice daily until 05/13/2024 Diet: Consistent carb low, renal Lines: pIVs GI Prophylaxis: Protonix Thrombo Prophylaxis: Heparin Code status: FULL CODE Plan of care discussed with Attending Dr. Jordan Kathleen MD,[id number]
[2024-04-10] MEDS: MELATONIN 3 MG TABLET PO (20:25)
[2024-04-10] MEDS: CYCLObenzaPRINE 5 MG TABLET 10 MG PO (20:25)
[2024-04-10] MEDS: INSULIN GLARGINE (Lantus) 5 UNIT/0.05 ML (PER 5 UNITS) 30 UNIT SC (20:30)
--- NOTE | 2024-04-10 20:52 | PC.NURSE ---
spoke with Dr. Goldman regarding fsbs of 365. new orders to be placed by .
[2024-04-10] MEDS: INSULIN LISPRO (AdmeLOG) 1 UNIT/0.01 ML UNIT 8 UNIT SC (21:32)
[2024-04-11] VITALS (9 sets, daily range): BP systolic 108–149; BP diastolic 74–99; PULSE 78–101; RESP 12–97; TEMP 35.6–36.4; O2SAT 96–99
--- NOTE | 2024-04-11 00:37 | PC.NURSE ---
spoke with Dr. Goldman regarding patient stating she's restless and anxious. Pt is requesting to have something to help. agrees we can give Ativan 0.25 mg Po.
[2024-04-11] MEDS: LORazepam 0.5 MG TABLET 0.25 MG PO (00:48)
[2024-04-11] MEDS: BACLOFEN 10 MG TABLET 5 MG PO (04:13)
[2024-04-11] MEDS: HEPARIN SOD INJ 5000 UNIT/ML VIAL SC ×3 (05:30→21:23)
[2024-04-11 05:31] LABS: Basophils # (Auto) 0.2 Thou/mm3 (0.0-0.2); Basophils % (Auto) 1 % (0-2.5); Eosinophils # (Auto) 0.4 Thou/mm3 (0.0-0.5); Eosinophils % (Auto) 2 % (0-10); Hematocrit 27.6 % (36.0-46.0); Hemoglobin 8.9 g/dL (12.0-16.0); Immature Granulocytes % (Auto) 6 % (0-0); Immature Granulocytes Auto 1.51 Thou/mm3 (0.00-0.00); Lymphocytes # (Auto) 6.2 Thou/mm3 (1.0-4.8); Lymphocytes % (Auto) 23 % (10-50); Mean Corpuscular HGB Conc 32.2 g/dl (31.0-37.0); Mean Corpuscular Hemoglobin 28.8 pg (25.0-35.0); Mean Corpuscular Volume 89 fL (80-100); Monocytes # (Auto) 1.6 Thou/mm3 (0.0-0.8); Monocytes % (Auto) 6 % (0-12); Neutrophils # (Auto) 17.4 Thou/mm3 (1.8-7.7); Neutrophils % (Auto) 64 % (37-80); Nucleated Red Blood Cell % 0 /100 WBC (0); Platelet Count 495 Thou/mm3 (140-440); RDW Standard Deviation 46.3 fL (36.4-46.3); Red Blood Count 3.09 Miln/mm3 (4.00-5.20); White Blood Count 27.4 Thou/mm3 (3.6-11.0)
[2024-04-11 05:56] LABS: Anion Gap 10 (7-16); BUN/Creatinine Ratio 6 Ratio (12-20); Blood Urea Nitrogen 28 mg/dL (9-23); Calcium 9.2 mg/dL (8.3-10.6); Carbon Dioxide 24.7 mMol/L (20.0-31.0); Chloride 99 mMol/L (98-107); Creatinine (Component) 4.4 mg/dL (0.6-1.3); Estimated Creatinine Clearance 15.5 mL/min (>60); Glucose 175 mg/dL (74-106); Osmolality,Calculated 277 (275-295); Potassium 3.8 mMol/L (3.4-5.1); Sodium 134 mMol/L (136-145); eGFR 12 See Note
--- NOTE | 2024-04-11 07:48 | ESPR_ITS ---
<Statement entered by Carlos Ortega MD - 04/11/24 17:15> I have discussed and was present for the essential components of the history, physical examination, diagnosis, and treatment plan with the resident. I agree with the patient's care as documented by the resident and amended herein by me. Carlos Ortega MD FACP. Documentation for date of: 04/11/24 Subjective Subjective Interval history: Patient was seen and examined at bedside this AM. No acute exents overnight. Patient tolerating diet, adequate urine output and mentation is at baseline. Patient has no complaints but is anxious to be discharged soon as her birthday is next week Friday and she wants to make preparations Patient's Hb 8.9 stable stable post 1 unit PRBC 04/05 Fasting blood glucose 175 this morning. Patient required 8 units of sliding scale insulin yesterday Will increase insulin glargine to 32 units at bedtime and insulin lispro 7 units 3 times daily with meals. Patient on IV iron started on [04/04 - Also on Neupogen during dialysis sessions Hepatitis B core IgM still pending as this is a requirement for outpatient dialysis at the center her insurance approved The lab was contacted and they informed us that the earliest possible date of her results would be on Thursday 04/12. ID, Dr Yuan recommended 6 weeks of treatment with doxycycline 100 Mg p.o. twice daily and Keflex during dialysis sessions. 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 Nose: No nasal discharge. Mouth/Throat: Moist mucous membranes, poor dentation no redness, no lesions. Neck: Neck supple, non-tender, no cervical lymphadenopathy. Lungs: Clear on auscultation, No accessory muscle use. RIJ catheter insitu. Exit site clean Cardio: Normal S1/S2, regular rhythm, no murmurs, no JVD Abdomen: Soft, non-tender, no palpable masses, peristalsis present, no guarding or rebound. Extremities L AKA, no peripheral edema , non-tender, peripheral pulses present R LE. Base of R foot ulcer, eschar, non purulent Skin: No rashes, no lesions, warm to touch. Neuro: No focal neurological deficits. motor and sensory intact Psych: Cooperative, appropriate mood and effect. Objective Labs 04/11/24 04:52 04/11/24 04:52 Labs: Laboratory Results - last 24 hr 04/11/24 04:52 WBC 27.4 H RBC 3.09 L Hgb 8.9 L Hct 27.6 L MCV 89 MCH 28.8 MCHC 32.2 RDW Std Deviation 46.3 Plt Count 495 H Neut % (Auto) 64 Lymph % (Auto) 23 Henderson % (Auto) 6 Eos % (Auto) 2 Baso % (Auto) 1 Neut # (Auto) 17.4 H Lymph # (Auto) 6.2 H Henderson # (Auto) 1.6 H Eos # (Auto) 0.4 Baso # (Auto) 0.2 Immature Gran # (Auto) 1.51 H Absolute Nucleated RBC 0.00 Immature Gran % 6 H Nucleated RBC % 0 Sodium 134 L Potassium 3.8 Chloride 99 Carbon Dioxide 24.7 Anion Gap 10 BUN 28 H Creatinine 4.4 H* D Estim Creat Clear Calc 15.5 L eGFR 12 L* BUN/Creatinine Ratio 6 L Glucose 175 H Calculated Osmolality 277 Calcium 9.2 ABG Interpretation ABG results: 03/31/24 04/01/24 23:41 09:24 ABG pH 7.30 L 7.31 L ABG pCO2 31 L 31 L ABG pO2 171 H 98 D ABG HCO3 15 L 16 L ABG O2 Saturation 100 H 98 ABG Base Excess -10 L -10 L Quality Measures Quality Measures VTE prophylaxis (Heparin subcutaneously) Assessment & Plan Assessment Current Active Medications: Generic Name Dose Route Start Last Admin Trade Name Freq PRN Reason Stop Dose Admin Acetaminophen 650 mg 04/01/24 15:50 Acetaminophen 325 Mg Tablet PO 05/01/24 02:10 Q6H PRN PAIN(1-3) OR FEVER > 101 Albuterol/Ipratropium 3 ml 04/02/24 11:02 Albuterol/Ipratropium (Duoneb) Rt Maggie 3 Ml Nebu INH 05/01/24 02:59 Q4HRRT PRN sob Calcium Acetate 667 mg 04/06/24 17:30 04/10/24 18:19 Calcium Acetate 667 Mg Tablet PO 05/06/24 17:29 667 mg TIDWM NASREEN Administration Cyclobenzaprine HCl 10 mg 04/03/24 21:00 04/10/24 20:25 Cyclobenzaprine 5 Mg Tablet PO 05/03/24 20:59 10 mg HS NASREEN Administration Dextrose 25 ml 04/01/24 02:16 04/06/24 07:09 Dextrose 50%-Water Inj 50 Ml Syringe IV 05/01/24 02:15 25 ml Q15MIN PRN Administration BG 50-70 responsive npo pt Dextrose 50 ml 04/01/24 02:16 Dextrose 50%-Water Inj 50 Ml Syringe IV 05/01/24 02:15 Q15MIN PRN BG <50 OR BG <70 & pt unresponsive Doxycycline Hyclate 100 mg 04/07/24 21:00 04/10/24 20:25 Doxycycline 100 Mg Tablet PO 05/13/24 12:00 100 mg BID NASREEN Administration Glucagon 1 mg 04/01/24 02:16 Glucagon Inj 1 Mg Vial IM Q15MIN PRN BG <70, and no IV access Heparin Sodium (Porcine) 5,000 unit 04/01/24 06:00 04/11/24 05:30 Heparin Sod Inj 5000 Unit/Ml Vial SC 04/15/24 05:59 5,000 unit Q8HR NASREEN Administration Heparin Sodium (Porcine) 3,500 unit 04/06/24 10:34 04/10/24 15:16 Heparin Sod Inj 1000 Unit/Ml Vial 10 Ml INDWELLCAT 04/11/24 10:33 3,500 unit X1 PRN Administration DIALYSIS Cefazolin Sodium/Dextrose 1 gm in 50 mls @ 100 mls/hr 04/08/24 09:00 04/10/24 08:01 Ancef Ivpb IV 04/15/24 08:59 100 mls/hr DAILY NASREEN Administration Insulin Glargine 30 unit 04/06/24 21:00 04/10/24 20:30 Insulin Glargine (Lantus) 5 Unit/0.05 Ml (Per 5 Units) SC 05/06/24 20:59 30 unit HS NASREEN Administration Insulin Human Lispro 5 unit 04/10/24 05:00 04/10/24 18:19 Insulin Lispro (Admelog) 1 Unit/0.01 Ml Unit SC 05/10/24 04:59 5 unit TIDWM NASREEN Administration Melatonin 3 mg 04/03/24 02:45 04/10/24 20:25 Melatonin 3 Mg Tablet PO 05/03/24 02:44 3 mg HS NASREEN Administration Nifedipine 30 mg 04/03/24 09:00 04/10/24 07:59 Nifedipine Xl 30 Mg Tabcr PO 05/03/24 08:59 30 mg QDAY NASREEN Administration Ondansetron HCl 4 mg 04/01/24 02:11 04/08/24 12:01 Ondansetron Inj 2 Mg/Ml Inj 2 Ml IV 05/01/24 02:10 4 mg Q6H PRN Administration NAUSEA OR VOMITING Protocol Pantoprazole Sodium 40 mg 04/01/24 09:00 04/10/24 08:00 Pantoprazole 40 Mg Tablet PO 05/01/24 08:59 40 mg QDAY NASREEN Administration Sennosides 1 tab 04/01/24 09:00 04/10/24 08:00 Senna Tablet PO 05/01/24 08:59 1 tab QDAY NASREEN Administration Protocol Plan Patient is a 43-year-old female past medical history of essential hypertension, IDDM [6.8], diabetic neuropathy s/p left AKA, chronic osteomyelitis of right first metatarsal and proximal phalanx of first digit and second distal metatarsal amputation, CKD stage V and asthma. Presented to the ED with a chief complaint of SOB and was admitted for acute respiratory failure with hypoxia secondary to sepsis due to CAP versus asthma exacerbation. 1. Acute respiratory failure with hypoxia -resolved Secondary to 2. Sepsis secondary to suspected GNR pneumonia versus asthma exacerbation?resolved 3. Community-acquired pneumonia?resolving 4. Leukocytosis - chronic Patient had SOB on admission and a history of sick contacts, her nephews. Associated with generalized weakness, body aches and productive cough. On exam patient mild wheezing. On admission patient met SIRS 2/4 for HR 113 and WBC 18.3 Source of infection CAP Chest x-ray was significant for bibasilar consolidation, no pleural effusion, pulmonary edema. Patient was started on hemodialysis this admission a sign of end organ damage Blood and urine cultures taken on 03/31 were both negative. Influenza A and B were also both negative Patient received 3 days of prednisone 20 Mg p.o. daily discontinued on 04/03. Leukocytosis most likely secondary to steroid use and chronic osteomyelitis Blood smear completed on 04/01 findings include: ? Severe normocytic anemia without hemolysis. ? Marked, mature neutrophilic leukocytosis. ? Moderate thrombocytosis. Pathologist recommended a smoking pipe maker referral as these findings are chronic and have persisted for several days. Completed 3 days azithromycin 500 Mg p.o. daily [04/01 - 04/04] Completed 5 days ceftriaxone 1 g IV daily started on [04/01?03/06] Patient has no complaints but is anxious to be discharged soon as her birthday is next friday and she wants to make preparations Plan: ? Continue to monitor CBC ? Supplemental O2 as necessary 4. Asthma exacerbation -resolved On presentation patient was SOB associated with a productive cough for the past few days. His sick contacts were her both nephews who are sick at home with the flu. Patient's home medication nebulizer machine with albuterol solution as needed. Patient received 3 days of prednisone 20 Mg p.o. daily and is currently no longer complaining of SOB and has no wheeze heard on exam. Plan: ? DuoNebs every 6 hourly as needed ? Continue supplemental O2 as necessary 5. CKD stage V on hemodialysis via RIJ permanent Catheter 6. R femoral temporary catheter s/p removal 04/06 Patient's baseline CR between 3?5. On this admission patient's CR 6.1. Most likely secondary to longstanding diabetic and hypertensive nephropathy. Nephrology, Dr. Livingston was consulted who recommended patient be started on hemodialysis. Hepatitis B, C were negative with hep B antibody nonreactive. PPD negative Patient was administered hepatitis B vaccine 04/04. Patient on IV iron started on [04/04 - Also on Neupogen during dialysis sessions Patient had placement of right IJ PermCath 04/05 and removal of femoral temporary catheter 04/06 Hepatitis B core IgM ordered as this is a requirement for outpatient dialysis at the center her insurance approved ESR elevated at 80 and CRP elevated at 6.6 Currently Dialysing Tu/Thurs/Fri Hepatitis B core IgM still pending as this is a requirement for outpatient dialysis at the center her insurance approved The lab was contacted and they informed us that the earliest possible date of her results would be on Thursday 04/12. Plan: ? 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 Hepatitis B core IgM pending ? Continue sevelamer 800 mg p.o. 3 times daily ? Continue hemodialysis as scheduled ? Avoid nephrotoxic agents ? Renally dose medications ? Nephrology consulted, appreciate recommendations 6. NAGMA?resolved On admission bicarb 14.7. Currently bicarb 27.8 7. IDDM type II [6.8] 8. Diabetic neuropathy 9. 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 History of chronic osteomyelitis right first toe Patient's home medication insulin glargine 38 units subcut at night and insulin HR as needed. Patient's HbA1c on admission 6.8. Foot x-ray was significant for right metacarpal joint osteomyelitis ID, Dr Yuan recommended 6 weeks of treatment with doxycycline 100 Mg p.o. twice daily and Keflex during dialysis sessions. To complete treatment on 05/13/2024 Fasting blood glucose 175 this morning. Patient required 8 units of sliding scale insulin yesterday Will increase insulin glargine to 32 units at bedtime and insulin lispro 7 units 3 times daily with meals. Plan: - Continue insulin glargine 30 units at bedtime ? Increase insulin glargine to 32 units at bedtime from 30 units ? Increase insulin lispro to 7 units 3 times daily WM from 5 units 3 times daily WM ? Discontinued insulin sliding scale ? Low consistent carb diet ? D5 cefazolin 1 g IV daily started on [04/07? as per ID recommendations ? D5 doxycycline 100 Mg p.o. twice daily started on [04/07?as per ID recommendations ? Upon discharge patient to continue with doxycycline 100 Mg p.o. twice daily for 6 weeks to complete on 05/13/2024 along with Keflex during dialysis sessions. - Infectious disease recommended oral suppression as patient has been previously treated with IV antibiotics for osteomyelitis in 2022. - General surgery assessed patient and does not recommend any surgical intervention. Prescribed Santyl daily for wound care ? General Surgery was consulted, appreciate recommendations. ? Infectious disease was consulted, appreciate recommendations. 11. Essential hypertension On admission BP 173/90. Currently BP 109/89 Home medication amlodipine 2.5 Mg p.o. daily Plan: ? Continue nifedipine 30 Mg p.o. daily 12. Normocytic anemia On admission Hb 8.1. Currently Hb 8.9 DDx: RUTH ANN, blood loss anemia, anemia of chronic disease, thalassemia, lead poisoning. Iron panel significant for FE 12, TIBC 207, ferritin 219. Mixed picture of iron deficiency and anemia of chronic disease. Patient on IV iron started on [04/04 - Patient's Hb 8.8 this morning post 1 unit PRBC 04/05 Plan: - Stool for occult blood ordered ? Continue IV iron started on [04/04? ? Continue Epogen during HD sessions ? Continue to monitor CBC 13. Hypocalcemia- chronic On admission corrected Ca 7.2, currently corrected Ca 9 DDx: Hypoparathyroidism, vitamin D deficiency, acute renal failure, hypoalbuminemia, sepsis Most likely secondary to CKD stage V now requiring dialysis Calcium gluconate IV 10% x 1 given on 04/04 and 04/05 Discontinued calcium carbonate 1g po BIDWM Currently corrected Ca 9.2 Plan: ? Continue calcium acetate 667 g p.o. 3 times daily WM as patient is CKD on HD and also at risk of hyperphosphatemia. Calcium acetate also helps to lower serum phosphorus ? Monitor calcium on CMP tomorrow 14. History of retinal detachment Follow-up outpatient with ophthalmology Health maintenance: Disposition: Pending outpatient chair time once hep B core antibody results available. To complete 6 weeks of treatment with doxycycline 100 Mg p.o. twice daily until 05/13/2024 Diet: Consistent carb low, renal Lines: pIVs GI Prophylaxis: Protonix Thrombo Prophylaxis: Heparin Code status: FULL CODE Plan of care discussed with Attending Dr. Ortega and PGY3 Dr. Cristiane Barton MD PGY 1 I discussed with and supervised my co-resident involved in the care of this patient. I agree with the assessment and plan as documented above. Patient seen and examined at bedside. No acute complaints. Pending hepatitis lab results for outpatient dialysis center. On antibiotics for chronic osteomyelitis until May 13, 2024. I have reviewed and discussed the patient's care with my attending, Dr. Jordan Sauer MD PGY-3
[2024-04-11] MEDS: INSULIN LISPRO (AdmeLOG) 1 UNIT/0.01 ML UNIT 5 UNIT SC ×2 (07:52→11:26)
[2024-04-11] MEDS: CALCIUM ACETATE 667 MG TABLET PO ×3 (07:53→17:18)
[2024-04-11] MEDS: ceFAZolin/D5W 1 GM IVPB 1 GM/50 ML BAG IV (08:32)
[2024-04-11] MEDS: PANTOPRAZOLE 40 MG TABLET PO (08:32)
[2024-04-11] MEDS: DOXYCYCLINE 100 MG TABLET PO ×2 (08:32→20:48)
[2024-04-11] MEDS: SENNA TABLET 1 TAB PO (08:32)
[2024-04-11] MEDS: NIFEdipine XL 30 MG TABCR PO (08:32)
--- NOTE | 2024-04-11 10:30 | PC.CM ---
I spoke to the doctor and patient will not need IV abx with home health. Patient will be switched to PO.
[2024-04-11] MEDS: INSULIN LISPRO (AdmeLOG) 1 UNIT/0.01 ML UNIT 7 UNIT SC (17:18)
[2024-04-11] MEDS: INSULIN LISPRO (AdmeLOG) 1 UNIT/0.01 ML UNIT SC (17:19)
[2024-04-11] MEDS: CYCLObenzaPRINE 5 MG TABLET 10 MG PO (20:48)
[2024-04-11] MEDS: MELATONIN 3 MG TABLET PO (20:48)
[2024-04-11] MEDS: INSULIN GLARGINE (Lantus) 5 UNIT/0.05 ML (PER 5 UNITS) 32 UNIT SC (20:49)
[2024-04-12] VITALS (22 sets, daily range): BP systolic 81–143; BP diastolic 49–98; PULSE 73–101; RESP 16–95; TEMP 36.1–36.8; O2SAT 95–97
[2024-04-12] MEDS: HEPARIN SOD INJ 5000 UNIT/ML VIAL SC (05:10)
[2024-04-12 05:16] LABS: Basophils # (Auto) 0.1 Thou/mm3 (0.0-0.2); Basophils % (Auto) 1 % (0-2.5); Eosinophils # (Auto) 0.4 Thou/mm3 (0.0-0.5); Eosinophils % (Auto) 2 % (0-10); Immature Granulocytes % (Auto) 4 % (0-0); Immature Granulocytes Auto 1.12 Thou/mm3 (0.00-0.00); Lymphocytes # (Auto) 5.6 Thou/mm3 (1.0-4.8); Lymphocytes % (Auto) 21 % (10-50); Mean Corpuscular HGB Conc 32.1 g/dl (31.0-37.0); Mean Corpuscular Hemoglobin 28.8 pg (25.0-35.0); Mean Corpuscular Volume 90 fL (80-100); Monocytes # (Auto) 1.5 Thou/mm3 (0.0-0.8); Monocytes % (Auto) 6 % (0-12); Neutrophils # (Auto) 17.7 Thou/mm3 (1.8-7.7); Neutrophils % (Auto) 67 % (37-80); Nucleated Red Blood Cell % 0 /100 WBC (0); Platelet Count 485 Thou/mm3 (140-440); RDW Standard Deviation 47.3 fL (36.4-46.3); Red Blood Count 3.13 Miln/mm3 (4.00-5.20); White Blood Count 26.4 Thou/mm3 (3.6-11.0)
[2024-04-12 06:09] LABS: Anion Gap 11 (7-16); BUN/Creatinine Ratio 7 Ratio (12-20); Blood Urea Nitrogen 41 mg/dL (9-23); Calcium 9.2 mg/dL (8.3-10.6); Carbon Dioxide 26.3 mMol/L (20.0-31.0); Chloride 98 mMol/L (98-107); Creatinine (Component) 5.6 mg/dL (0.6-1.3); Glucose 267 mg/dL (74-106); Osmolality,Calculated 289 (275-295); Potassium 3.6 mMol/L (3.4-5.1); Sodium 135 mMol/L (136-145); eGFR 9 See Note
[2024-04-12 06:51] LABS: HCV RNA, PCR Log IU <1.18 NOT DETECTED Log IU/mL; Hepatitis B Core Ab,Total* NONREACTIVE
--- NOTE | 2024-04-12 08:21 | ESDS_ITS ---
<Statement entered by Charles Kathleen MD - 04/12/24 15:28> I saw and examined the patient, and I agree with current management stated by Dr Gavin MD,PGY1. Plan of care was discussed with the attending physician and resident physician. Disclaimer: Despite multiple revisions, due to the dictation software being used, the document bellow may not be free of grammatical errors including phonetic/typographic errors. However, this does not deter from our commitment to providing health care in the patient's best interest in mind. Dr. Frannie MD, PGY 2 Planned Discharge Date 04/12/24 DS: Providers Provider Date of admission: 04/01/24 02:11 Primary care physician: Khadijah Veronica PA-C Admitting Provider: Thomas San MD Attending Provider on Admission: Carlos Ortega MD Consults: 04/01/24 02:20 Referral Registered Dietitian Routine Comment: 04/01/24 02:26 Consult to Nephrology Stat Comment: Consulting Provider: Bala Livingston 04/01/24 08:00 Referral Wound Care Routine Comment: 04/04/24 10:44 Consult to Infectious Diseases Routine Comment: Right toe osteomyelitis Consulting Provider: Billy Yuan 04/04/24 10:46 Consult to General Surgery Routine Comment: Right great toe osteomyelitis Consulting Provider: Nancy Hartman 04/06/24 16:15 Referral OP Wound Healing Dept Routine Comment: Instructions: Callus to the right foot plantar aspect. 04/09/24 10:50 Consult to Cardiology Routine Comment: Consulting Provider: Nessa Mann Attending Provider on DC: Gavin Barton MD Discharging Provider: Vadim Chan DO DS: Diagnosis Problem List Completed Was Problem List Reviewed/Reconciled?: Yes Hospital Course Hospital Course Hospital course: Patient is a 43-year-old female past medical history of essential hypertension, IDDM [6.8], diabetic neuropathy s/p left AKA, chronic osteomyelitis of right first metatarsal and proximal phalanx of first digit and second distal metatarsal amputation, CKD stage V and asthma. Presented to the ED with a chief complaint of SOB and was admitted for acute respiratory failure with hypoxia secondary to sepsis due to CAP versus asthma exacerbation. Patient was treated with 3 days of prednisone 20 Mg p.o. daily which was discontinued on 04/03. Also completed 3 days of azithromycin 500 Mg p.o. daily from 03/24 - 04/04 and 5 days of ceftriaxone 1 g IV from 04/01?04/05. Patient was also treated with scheduled DuoNebs for her asthma exacerbation which subsequently resolved and she was weaned off of supplemental O2. A right femoral vein temporary catheter was initially placed for hemodialysis she was eventually transitioned to a R IJ permanent catheter with subsequent removal of femoral line. Her hepatitis panel was negative and hep B surface ant ibody was negative. Her hep B core IgM antibody was also negative. Her first dose of hepatitis B vaccine was administered. Patient was also treated with 6 days of IV iron and Neupogen during dialysis sessions. She also has chronic hypocalcemia due to her CKD stage V on hemodialysis and was started on calcium acetate 667 g p.o. 3 times daily with meals. Her outpatient dialysis days are Friday/Friday/Friday. Patient has chronic osteomyelitis of the right first metacarpal joint. ID, Dr Yuan recommended 6 weeks of treatment with doxycycline 100 Mg p.o. twice daily as she treated previously received treatment with IV antibiotics and failed to respond. Her last day for p.o. doxycycline is 05/13/2024. General surgery, Dr. Wong also assessed the patient and recommended against surgical intervention at this time as per patient's wishes. She prescribed Santyl daily for wound care. All patient's labs are now returned on to her baseline. Patient is now clinically stable and fit for discharge back to home. Discharge diagnoses: 1. Acute respiratory failure with hypoxia resolved 2. Sepsis secondary to suspected GNR pneumonia versus asthma exacerbation?resolved 3. Community-acquired pneumonia?resolving 4. Leukocytosis - chronic 5. Asthma exacerbation?resolved 6. CKD stage V on hemodialysis via RIJ permanent Catheter 7. R femoral temporary catheter s/p removal 04/06 8. NAGMA ?resolved 8. IDDM type II [6.8] 9. Diabetic neuropathy 10. 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 History of chronic osteomyelitis right first toe 12. Essential hypertension 13. Normocytic anemia 14. Hypocalcemia?resolving 15. History of retinal detachment Discharge plan: -You have been started on an antibiotic doxycycline. Take 1 tablet twice daily every day until 13 May to complete your course for your foot infection. -You have been started on a medication Gvoke, if you blood sugar is less 60 take 1 injection and recheck your blood sugar in 15 minutes. An additional dose may be needed if your blood glucose is still less than 60. -We have discontinued your blood pressure medication amlodipine and started you on a blood pressure medication nifedipine. Take 1 tablet 1 time a day. - Please do your daily foot inspection and go to wound care clinic if necessary. - Continue to follow-up with nephrology and make an appointment within 2 weeks to see them in clinic. - Your dialysis days are Friday, Friday, Friday - Please follow up with a graphics intern for your elevated white cell count - Please make an appointment with your primary doctor within 2 weeks of discharge. - If you experience any new, persistent or worsening symptoms either call your primary doctor/dial 911 or present to the emergency department. We are grateful to be able to participate in Ms. Bajwa's care. We wish her the best. Plan of care discussed with Attending Dr. Chan and PGY2 Dr. 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 Nose: No nasal discharge. Mouth/Throat: Moist mucous membranes, poor dentation no redness, no lesions. Neck: Neck supple, non-tender, no cervical lymphadenopathy. Lungs: Clear on auscultation, No accessory muscle use. RIJ catheter insitu. Exit site clean Cardio: Normal S1/S2, regular rhythm, no murmurs, no JVD Abdomen: Soft, non-tender, no palpable masses, peristalsis present, no guarding or rebound. Extremities L AKA, no peripheral edema , non-tender, peripheral pulses present R LE. Base of R foot ulcer, eschar, non purulent Skin: No rashes, no lesions, warm to touch. Neuro: No focal neurological deficits. motor and sensory intact Psych: Cooperative, appropriate mood and effect. Discharge Plan Plan Patient Disposition: HOME (Self Care) Patient condition on transfer: Stable Care Plan Goals: -You have been started on an antibiotic doxycycline. Take 1 tablet twice daily every day until 13 May to complete your course for your foot infection. -You have been started on a medication Gvoke, if you blood sugar is less 60 take 1 injection and recheck your blood sugar in 15 minutes. An additional dose may be needed if your blood glucose is still less than 60. -We have discontinued your blood pressure medication amlodipine and started you on a blood pressure medication nifedipine. Take 1 tablet 1 time a day. - Please do your daily foot inspection and go to wound care clinic if necessary. - Continue to follow-up with nephrology and make an appointment within 2 weeks to see them in clinic. - Your dialysis days are Friday, Friday, Friday - Please follow up with a graphics intern for your elevated white cell count - Please make an appointment with your primary doctor within 2 weeks of discharge. - If you experience any new, persistent or worsening symptoms either call your primary doctor/dial 911 or present to the emergency department. Prescriptions/Referrals Prescriptions/Med Rec: New nifedipine 30 mg Tablet Extended Release 24hr 30 mg PO QDAY 90 Days Qty: 90 0RF doxycycline monohydrate 100 mg capsule 100 mg PO BID 31 Days Qty: 62 0RF Baqsimi 3 mg/actuation spray,non-aerosol 3 mg intranasal QDAY PRN (Reason: hypoglycemia) Qty: 1 0RF Continued cyclobenzaprine 10 mg tablet 10 mg PO HS PRN (Reason: muscle spasm) Qty: 10 0RF (DME) nebulizer and compressor Device See Rx Instructions .Route Qty: 1 0RF Rx Instructions: As directed lorazepam 0.5 mg tablet 0.5 mg PO HS Patient Comments: TAKE 1 TABLET BY MOUTH EVERY EVENING insulin glargine [Basaglar KwikPen U-100 Insulin] 100 unit/mL (3 mL) insulin pen 38 unit SUBCUT QDAY Patient Comments: INJECT 28 UNITS SUBCUTANEOUSLY ONCE A DAY Novolin R Regular U100 Insulin 100 unit/mL solution See Protocol subcut TID Protocol: Insulin Corrective High-Dose Regimen Condition: Fingerstick Blood Glucose Dose/Route: Insulin Units Condition: 141-180 mg/dl Dose/Route: 6 units/SQ Condition: 181-220 mg/dl Dose/Route: 8 units/SQ Condition: 221-260 mg/dl Dose/Route: 10 units/SQ Condition: 261-300 mg/dl Dose/Route: 12 units/SQ Condition: 301-350 mg/dl Dose/Route: 14 units/SQ Condition: 351-400 mg/dl Dose/Route: 16 units/SQ Condition: greater than 400 mg/dl Dose/Route: 18 units/SQ Patient Comments: USE UP TO 30 UNITS MAX/ DAY PER SLIDING SCALE 3 TIMES A DAY Discontinued amlodipine 2.5 mg Tablet 2.5 mg PO QDAY Referrals: Bala Livingston MD [Physician] - Khadijah Veronica PA-C [Primary Care Provider] - Patient/Caregiver Discharge Instructions Education Materials: Hemodialysis Print Language: Thai Stand Alone Forms: Hannah Award Info., Patient Portal Info Letter Discharge Order Discharge Orders: Discharge (Routine); Ordered 04/12/24 Ordered By: Charles Kathleen Quality Discharge Quality Measures VTE prophylaxis MD Attestestation MD Attestation I have discussed and was present for the essential components of the discharge history, physical examination, diagnosis, and discharge treatment plan with the resident. I agree with the patient's discharge care as documented by the resident and amended herein by me. Oscar Chan DO. The patient understood all discharge instructions, all questions were answered satisfactorily. The patient was instructed to return to the Emergency Department is symptoms worsened or persisted. Although this document has been carefully reviewed, there may still be some phonetic and other typographical errors. These errors are purely grammatical due to imperfections in the software program and should not be construed in any way to compromise the substance of the patient's medical care during this visit.
[2024-04-12] MEDS: ALBUMIN HUMAN 25% IVPB 25 GM/100 ML BTL IV (08:37)
--- NOTE | 2024-04-12 09:04 | PC.SS ---
SS met with patient at bedside while getting Dialysis. SS provided chair time to patient. Patient will be getting her first dialysis session on Friday at 2PM and going forward she will get Dialysis on , at 3:15PM in [facility] in [place]. Patient may discharge today after her dialysis.
[2024-04-12] MEDS: EPOETIN ALFA-EPBX INJ 10,000 UNIT/ML VIAL (NON-ESRD) 10000 UNIT SC (09:08)
--- NOTE | 2024-04-12 11:56 | PC.NURSE ---
Dialysis completed for 3 hrs, tolerated well. Pt no complaints. Respiration even and unlabored. Saturating at 97% on RA. Able to removed 1500 ml of fluid net. Post tx BP 119/69, HR 85, Temp 97.8. Pt back in her room. Call light within reached. Report given to Khadijah ROMERO
[2024-04-12] MEDS: CALCIUM ACETATE 667 MG TABLET PO (12:12)
[2024-04-12] MEDS: INSULIN LISPRO (AdmeLOG) 1 UNIT/0.01 ML UNIT 7 UNIT SC (12:14)
[2024-04-12] MEDS: INSULIN LISPRO (AdmeLOG) 1 UNIT/0.01 ML UNIT SC (12:15)
== END 2024-04-12 13:10 | disposition home or self-care (01) | DRG 720 ==
LOC: SERX 04-01 02:20 → SERHOLD 04-01 02:48 → S3NX 04-01 04:57 → S2NX 04-03 06:10 → S3NX 04-12 05:21
PROVIDERS: Internal Medicine; Student in an Organized Health Care Education/Training Program; Admitting Provider Student in an Organized Health Care Education/Training Program; Emergency Provider Emergency Medicine; PCP Physician Assistant; Visit Provider Student in an Organized Health Care Education/Training Program
DX: A41.50 Gram-negative sepsis, unspecified (principal); J15.69 Pneumonia due to other Gram-negative bacteria; I12.0 Hypertensive chronic kidney disease with stage 5 chronic kidney disease or end stage renal disease; J45.901 Unspecified asthma with (acute) exacerbation; N17.9 Acute kidney failure, unspecified; J96.01 Acute respiratory failure with hypoxia; E11.22 Type 2 diabetes mellitus with diabetic chronic kidney disease; E87.20 Acidosis, unspecified; M86.671 Other chronic osteomyelitis, right ankle and foot; E11.69 Type 2 diabetes mellitus with other specified complication; E83.39 Other disorders of phosphorus metabolism; E83.42 Hypomagnesemia; E83.51 Hypocalcemia; D50.9 Iron deficiency anemia, unspecified; D63.1 Anemia in chronic kidney disease; E11.40 Type 2 diabetes mellitus with diabetic neuropathy, unspecified; E11.65 Type 2 diabetes mellitus with hyperglycemia; N18.6 End stage renal disease; E11.621 Type 2 diabetes mellitus with foot ulcer; F15.10 Other stimulant abuse, uncomplicated; E78.5 Hyperlipidemia, unspecified; L97.519 Non-pressure chronic ulcer of other part of right foot with unspecified severity; R59.0 Localized enlarged lymph nodes; Z66 Do not resuscitate; Z89.612 Acquired absence of left leg above knee; Z87.891 Personal history of nicotine dependence; Z79.4 Long term (current) use of insulin; Z88.0 Allergy status to penicillin; Z59.82 Transportation insecurity; Z79.899 Other long term (current) drug therapy; Z89.512 Acquired absence of left leg below knee
CPT/HCPCS: 36415; 36600; 71045; 73620; 76937; 77001; 80048; 80053; 80061; 80069; 80074; 81001; 82550; 82728; 82803; 83036; 83540; 83550; 83605; 83615; 83690; 83735; 83880; 84100; 84145; 84443; 84484; 85014; 85018; 85025; 85610; 85652; 85730; 86140; 86580; 86704; 86706; 86850; 86900; 86901; 86923; 87040; 87086; 87340; 87400; 87522; 87634; 87811; 93225; 94640; 96365; 96366; 96367; 96368; 96375; 99291; A9270; C1894; J0456; J0613; J0689; J0696; J1642; J1643; J1815; J2405; J2916; J2919; J3010; J3475; J3490; J7030; J7050; J7060; J7512; P9016; P9047; Q5105; Q5106; J0690; J1644

== ENCOUNTER 2024-05-18 11:28 | Inpatient (IN) | payer MEDICAID, SELFPAY ==
[2024-05-18] VITALS (9 sets, daily range): BP systolic 115–157; BP diastolic 76–80; PULSE 96–118; RESP 16–22; TEMP 37.2–38.1; O2SAT 94–100
--- NOTE | 2024-05-18 11:29 | EKG_ITS ---
[facility] Test Date: 2024-05-18 Pat Name: ELVIA FLORES Department: Room: - Gender: Female Taper Machine: : 1980 Requested By: Daksha Cevallos Order Number: [id number] Reading MD: Daksha Cevallos Measurements Intervals [place] Rate: 106 P: 25 AR: 142 QRS: 12 QRSD: 95 T: 32 QT: 366 QTc: 487 Interpretive Statements SINUS TACHYCARDIA ABNORMAL RHYTHM ECG Compared to ECG 04/01/2024 00:40:09 Ventricular premature complex(es) no longer present /store/S0/[id number]/ecg/[id number].pdf
--- NOTE | 2024-05-18 11:29 | XR_ITS ---
Examination: AP chest single view Technique one AP portable upright chest single view Exam date and time: May 18, 1999 2512 0 8:00 PM Comparison March 31, 2024 INDICATIONS: Chest pain today. FINDINGS: Minor prominence left ventricle Mild vascular congestion. Right internal jugular dialysis catheter tip satisfactory position No pneumonia or pulmonary edema Moderate osteopenia IMPRESSION: No pneumonia or pulmonary edema
--- NOTE | 2024-05-18 11:39 | PD.EDWEAK ---
ED Weakness RME/HPI General Chief complaint: Weakness Stated complaint: GENERALIZED WEAKNESS Time Seen by Provider: 05/18/24 11:29 Arrival date/time: 05/18/24 11:28 RME / HPI RME / HPI Narrative: 44 year old female with history of hypertension, diabetes, diabetic neuropathy s/p left AKA, CKD on HD M/W/F, chronic osteomyelitis of right first metatarsal presents to the ED BIBA from home for evaluation of generalized weakness beginning yesterday. Per medics, family reported patient only received ~ 30 minutes of her dialysis treatment yesterday due to having abdominal pain. Last complete dialysis treatment was 4 days ago Friday. Medics report en route patient was tachycardic rate 110-115, had two episodes of nonbloody vomiting, and given Zofran. Related Data Home Medications ?Medication ?Instructions ?Recorded ?Confirmed insulin glargine 100 unit/mL (3 38 unit subcut QDAY 04/01/24 04/03/24 mL) subcutaneous pen (Basaglar KwikPen U-100 Insulin) insulin regular human 100 unit/mL See Protocol subcut TID 04/01/24 04/03/24 injection solution (Novolin R Regular U-100 Insulin) lorazepam 0.5 mg tablet 0.5 mg PO HS 04/01/24 04/03/24 Previous Rx's ?Medication ?Instructions ?Recorded cyclobenzaprine 10 mg tablet 10 mg PO HS PRN muscle spasm #10 10/16/22 tabs nebulizer and compressor #1 ea 05/13/23 glucagon 3 mg/actuation nasal 3 mg intranasal QDAY PRN 04/12/24 spray (Baqsimi) hypoglycemia #1 ea nifedipine 30 mg tablet,extended 30 mg PO QDAY 90 days #90 tabs 04/12/24 release 24 hr Allergies Allergy/AdvReac Type Severity Reaction Status Date / Time amoxicillin [From Augmentin] Allergy Severe Swelling Verified 11/02/23 20:23 of Lip/Tongue/Throat clavulanic acid Allergy Severe Swelling Verified 11/02/23 20:23 [From Augmentin] of Lip/Tongue/Throat Review of Systems Review of Systems ROS Unobtainable: unobtainable due to mental status Past Medical History Past Medical History CARDIAC: Positive Hypercholesterolemia, Cellulitis, Hypertension and Hypotension RESPIRATORY: Positive Asthma and Pneumonia MUSCULOSKELETAL: Positive Osteomyelitis ENT: Positive Blind ENDOCRINE: Positive Endocrine Disorders, Diabetes Mellitus Type 2 and Hypoglycemia HEMATOLOGIC: Positive Anemia OTHER HISTORY: Positive Hospitalization, Blood Transfusions and Chicken Pox Family History FAMILY HISTORY: Positive Family Respiratory Disorders and Family Cardiac Disorders Surgical History SURGICAL: Positive Abdominal Surgery and Amputation Social History SMOKING STATUS: Never smoker SECOND HAND EXPOSURE: No SUBSTANCE USE: does not use ED Exam Narrative Physical exam: GENERAL APPEARANCE: Patient is pale, slow to respond, mumbled speech HEENT: Normocephalic, atraumatic; pupils equal, round, reactive to light; EOMI; mucous membranes pink, moist; oropharynx clear NECK: Supple LUNGS: CTABL; no wheezes, no rales, no rhonchi HEART: Regular rate, regular rhythm; normal S1, S2; no murmurs ABDOMEN: Mildly distended; normal BS; soft, no tenderness, no guarding, no rebound; no masses, no organomegaly, no hernia BACK: no CVA tenderness EXTREMITIES: Left AKA; atraumatic; no edema NEUROLOGIC: slow to respond, mumbled speech SKIN: warm, dry, normal color; no rashes Course Quality Measures Current suspected stage: sepsis Possible source: unknown Blood cultures ordered: completed in ED Antibiotic ordered: Yes Pertinent labs: 05/18/24 11:40 Lactic Acid 1.1 mMol/L (0.4-2.0) Procalcitonin 30.93 H ng/ml (0.0-0.49) sepsis Orders Category Date Time Status Machine Former NOW Care 05/18/24 11:29 Active EKG (ED ONLY) *Do not use* NOW Care 05/18/24 11:[address] abdomen pelvis wo con Stat Exams 05/18/24 13:[address] head/brain wo con Stat Exams 05/18/24 13:12 Ordered EKG (ED Only) Stat Exams 05/18/24 11:29 Draft XR chest 1V portable Stat Exams 05/18/24 11:29 Completed Alcohol, Blood Medical Stat Lab 05/18/24 11:40 Completed Ammonia Stat Lab 05/18/24 13:36 Completed B-Type Natriuretic Peptide Stat Lab 05/18/24 11:40 Completed Blood Culture (Lab) Stat Lab 05/18/24 11:35 Received CBC Stat Lab 05/18/24 11:40 Completed Comprehensive Metabolic Panel Stat Lab 05/18/24 11:40 Completed Drug Screen,Urine Stat Lab 05/18/24 11:30 Ordered HCG,Qualitative Serum Stat Lab 05/18/24 13:36 Completed Lactate (Lactic Acid) Stat Lab 05/18/24 11:40 Completed Lipase Stat Lab 05/18/24 11:40 Completed Magnesium Stat Lab 05/18/24 11:40 Completed Partial Thromboplastin Time Stat Lab 05/18/24 11:40 Completed Phosphorous Stat Lab 05/18/24 11:40 Completed Procalcitonin Stat Lab 05/18/24 11:40 Completed Prothrombin Time with INR Stat Lab 05/18/24 11:40 Completed Troponin I Stat Lab 05/18/24 11:40 Completed Urinalysis Stat Lab 05/18/24 11:29 Ordered Urine Culture Stat Lab 05/18/24 11:29 Ordered Levofloxacin/D5w 500 mg Ivpb [Levaquin Ivpb] Med 05/18/24 12:45 Discontinued 500 mg in 100 ml IV X1 Sodium Chloride 0.9% 1000 ml [Ns] 1,000 ml Med 05/18/24 12:46 Discontinued IV 999 mls/hr Vancomycin Inj 1,000 mg Med 05/18/24 11:33 Discontinued Sodium Chloride 0.9% 250 ml [Ns] 250 ml IV X1 Vital Signs Vital signs: Vital Signs Pulse Rate 98 05/18/24 11:29 Weakness MDM Narrative MDM Narrative:: IAnahy am scribing for and in the presence of Dr. Collins. Patient data External records reviewed:: [facility] previous records (I reviewed admission from 03/31/2024 through 04/12/2024) and EMS form Clinical information provided by:: EMS Social determinants that could affect healthcare access:: none Patient has the following chronic illnesses:: hypertension, diabetes, diabetic neuropathy s/p left AKA, CKD on HD M/W/F, chronic osteomyelitis of right first metatarsal How is presenting disease/condition affected by chronic disease/condition?: exacerbated by Evaluation data The following diagnostics were reviewed and interpreted by me:: EKG tracing(s) (Sinus tachycardia, rate 106, normal axis, normal intervals, no acute ischemia. ) Lab and/or radiology exams considered but not ordered:: None Interpretation Summary: Ordering Physician: Daksha Collins MD Date of Service: 05/18/24 Procedure(s): XR chest 1V portable Accession Number(s): [id number] cc: Julien Hernandez MD; Daksha Collins MD; Khadijah Veronica PA-C~ Examination: AP chest single view Technique one AP portable upright chest single view Exam date and time: May 18, 1999 2512 0 8:00 PM Comparison March 31, 2024 INDICATIONS: Chest pain today. FINDINGS: Minor prominence left ventricle Mild vascular congestion. Right internal jugular dialysis catheter tip satisfactory position No pneumonia or pulmonary edema Moderate osteopenia IMPRESSION: No pneumonia or pulmonary edema Dictated By: Julien Hernandez MD Signed By: <Electronically signed by Julien Hernandez MD in OV> 05/18/24 1250 Medications / Prescriptions Medications or Prescriptions considered but not ordered:: None Medication administrations:: Medication Administration History Discontinued Medications Vancomycin HCl 1,000 mg/ (Sodium Chloride) 250 mls @ 150 mls/hr IV X1 ONE Stop: 05/18/24 13:12 Last Admin: 05/18/24 13:28 Dose: 150 mls/hr Documented By: RENUKA Levofloxacin/Dextrose (Levaquin Ivpb) 500 mg in 100 mls @ 100 mls/hr IV X1 ONE Stop: 05/18/24 13:44 Last Infusion: 05/18/24 14:42 Dose: Infused Documented By: Admin: 05/18/24 13:23 Dose: 100 mls/hr Documented By: RENUKA Sodium Chloride (Ns) 1,000 mls @ 999 mls/hr IV .Q1H1M ONE Stop: 05/18/24 13:46 Last Infusion: 05/18/24 14:42 Dose: Infused Documented By: Admin: 05/18/24 13:24 Dose: 999 mls/hr Documented By: RENUKA See above Consultations Consultation(s) initiated? (list below): Yes Consultation #1 (Physician, Specialty, Details): I spoke with resident Dr. Shaikh working with Dr. San. Discussed patients PMHx, HPI, ED course, exam findings, labs, and radiology results. The hospitalist agree to accept the patient for admission. Diagnosis Weakness Differential Diagnosis: acute myocardial infarction, anemia, hypothyroidism, rhabdomyolysis, sepsis and dehydration Most likely diagnosis given after review of the tests above:: Sepsis Hypokalemia Hypomagnesemia Admission Indicated Admission indicated?: indicated Admission Request Was there a request for admission?: Yes Admission Attestation Admission request attestation: Discussed case with [] from Hospitalist service regarding admission. Discussed patients ED course, exam findings, labs, and radiology results. The Hospitalist [agrees,declines] to accept the patient for admission. Disposition Plan Disposition Plan: Admit Critical Care Time Critical Care Time Critical Care Time: Yes Total Critical Care Time (min.): 30 Attestation: The high probability of sudden, clinically significant deterioration in the patient's condition required the highest level of my preparedness to intervene urgently. The services I provided to this patient were to treat and/or prevent clinically significant deterioration. Services included the following: chart data review, reviewing nursing notes and/or old charts, documentation time, microsoft dynamics consultant collaboration regarding findings and treatment options, medication orders and management, direct patient care, vital sign assessments and ordering, interpreting and reviewing diagnostic studies and lab tests. Aggregate critical care time includes only time during which I was engaged in work directly related to the patient's care, as described above, whether at bedside or elsewhere in the Emergency Department. It did not include time spent performing other reported procedures or the services of residents, students, nurses or physician assistants. Discharge Plan Plan Patient Disposition: Admit Acute Care w/in Hospital Disposition Comment: Dr. San Prescriptions/Referrals Prescriptions/Med Rec: No Action cyclobenzaprine 10 mg tablet 10 mg PO HS PRN (Reason: muscle spasm) Qty: 10 0RF (DME) nebulizer and compressor Device See Rx Instructions .Route Qty: 1 0RF Rx Instructions: As directed lorazepam 0.5 mg tablet 0.5 mg PO HS Patient Comments: TAKE 1 TABLET BY MOUTH EVERY EVENING insulin glargine [Basaglar KwikPen U-100 Insulin] 100 unit/mL (3 mL) insulin pen 38 unit SUBCUT QDAY Patient Comments: INJECT 28 UNITS SUBCUTANEOUSLY ONCE A DAY Novolin R Regular U100 Insulin 100 unit/mL solution See Protocol subcut TID Protocol: Insulin Corrective High-Dose Regimen Condition: Fingerstick Blood Glucose Dose/Route: Insulin Units Condition: 141-180 mg/dl Dose/Route: 6 units/SQ Condition: 181-220 mg/dl Dose/Route: 8 units/SQ Condition: 221-260 mg/dl Dose/Route: 10 units/SQ Condition: 261-300 mg/dl Dose/Route: 12 units/SQ Condition: 301-350 mg/dl Dose/Route: 14 units/SQ Condition: 351-400 mg/dl Dose/Route: 16 units/SQ Condition: greater than 400 mg/dl Dose/Route: 18 units/SQ Patient Comments: USE UP TO 30 UNITS MAX/ DAY PER SLIDING SCALE 3 TIMES A DAY nifedipine 30 mg Tablet Extended Release 24hr 30 mg PO QDAY 90 Days Qty: 90 0RF Baqsimi 3 mg/actuation spray,non-aerosol 3 mg intranasal QDAY PRN (Reason: hypoglycemia) Qty: 1 0RF Referrals: Khadijah Veronica PA-C [Primary Care Provider] - In 1 week Problem List Clinical Impression: Sepsis, Hypokalemia, Hypomagnesemia Patient/Caregiver Discharge Instructions Print Language: Mohawk Stand Alone Forms: Hannah Award Info., Patient Portal Info Letter
[2024-05-18 11:47] LABS: Lactate (Lactic Acid) 1.1 mMol/L (0.4-2.0)
[2024-05-18 11:52] LABS: Basophils # (Auto) 0.1 Thou/mm3 (0.0-0.2); Basophils % (Auto) 0 % (0-2.5); Eosinophils % (Auto) 0 % (0-10); Hematocrit 27.9 % (36.0-46.0); Hemoglobin 9.2 g/dL (12.0-16.0); Immature Granulocytes % (Auto) 1 % (0-0); Immature Granulocytes Auto 0.35 Thou/mm3 (0.00-0.00); Lymphocytes # (Auto) 1.1 Thou/mm3 (1.0-4.8); Lymphocytes % (Auto) 4 % (10-50); Mean Corpuscular Hemoglobin 28.7 pg (25.0-35.0); Mean Corpuscular Volume 87 fL (80-100); Monocytes # (Auto) 1.3 Thou/mm3 (0.0-0.8); Monocytes % (Auto) 5 % (0-12); Neutrophils # (Auto) 22.8 Thou/mm3 (1.8-7.7); Neutrophils % (Auto) 89 % (37-80); Nucleated Red Blood Cell % 0 /100 WBC (0); Platelet Count 280 Thou/mm3 (140-440); RDW Standard Deviation 47.4 fL (36.4-46.3); Red Blood Count 3.21 Miln/mm3 (4.00-5.20); White Blood Count 25.7 Thou/mm3 (3.6-11.0)
[2024-05-18 12:05] LABS: INR 1.1 (0.9-1.3); Partial Thromboplastin Time 33.9 Seconds (22.0-36.0); Prothrombin Time 11.9 Seconds (9.0-12.2)
[2024-05-18 12:15] LABS: Alanine Aminotransferase 15 U/L (10-49); Albumin, Serum 3.5 gm/dL (3.5-5.0); Albumin/Globulin Ratio 1.1 (1.2-2.2); Alcohol, Blood Medical < 10.0 mg/dL (0-10.0); Alkaline Phosphatase 145 U/L (46-116); Anion Gap 11 (7-16); Aspartate Amino Transferase 36 U/L (0-34); BUN/Creatinine Ratio 5 Ratio (12-20); Bilirubin,Total 1.3 mg/dL (0.3-1.2); Blood Urea Nitrogen 25 mg/dL (9-23); Calcium 7.5 mg/dL (8.3-10.6); Calcium (Corrected) 7.9 mg/dL (8.5-10.1); Carbon Dioxide 22.8 mMol/L (20.0-31.0); Chloride 95 mMol/L (98-107); Creatinine (Component) 5.2 mg/dL (0.6-1.3); Globulin 3.1 gm/dL (2.3-3.5); Glucose 274 mg/dL (74-106); Lipase 22 U/L (12-53); Magnesium 1.2 mg/dL (1.6-2.6); Osmolality,Calculated 273 (275-295); Phosphorous 2.9 mg/dL (2.4-5.1); Potassium 2.9 mMol/L (3.4-5.1); Procalcitonin 30.93 ng/ml (0.0-0.49); Sodium 129 mMol/L (136-145); Total Protein 6.6 gm/dL (5.7-8.2); Troponin I 0.034 ng/mL (0.0-0.045); eGFR 10 See Note
[2024-05-18 12:20] LABS: B-Type Natriuretic Peptide 405 pg/mL (0-100)
--- NOTE | 2024-05-18 13:12 | XR_ITS ---
Examination: CT brain head without contrast. 2-D sagittal coronal reconstructions Date and time of exam:May 18, 2024: 1602 hours INDICATIONS: Altered mental status today CTDI: vol (mGy):48.2 DLP: (mGycm):859 Technique: Multiple CT axial sections of the brain have been obtained, 5 mm slice thickness. Contrast has not been administered. 2-D sagittal, coronal reconstructions have been obtained Low dose protocols were performed. One or more of the following dose reduction techniques were used; automated exposure control, adjustment of the mA and/or KV according to patient size, use of iterative reconstruction technique. Findings: No significant ventricular enlargement. Small old infarct right caudate nucleus, small old infarct left basal ganglia Intra-axial or extra-axial hemorrhage density is not seen. No mass effect or midline shift Basal cisterns are not remarkable. Fourth ventricle is midline. Cranial vault intact. Impression: Negative for acute hemorrhage, mass effect or midline shift If symptoms persist, consider brain MRI follow-up
--- NOTE | 2024-05-18 13:12 | XR_ITS ---
Examination: CT abdomen and pelvis without contrast. Coronal 3-D reconstructions. Sagittal 2-D reconstructions. Date and time of exam:May 18, 2024 1603 hours INDICATIONS: Generalized abdominal pain nausea vomiting beginning today CTDI: vol (mGy): 20.4 DLP: (mGycm): 1156 Technique: Axial images of the abdomen have been obtained, 3 mm slice thickness Intravenous contrast material has not been administered. Low dose protocols were performed. One or more of the following dose reduction techniques were used; automated exposure control, adjustment of the mA and/or KV according to patient size, use of iterative reconstruction technique. Findings: No focal liver or splenic lesions Absent gallbladder No pancreatic or adrenal mass Renal arterial calcifications Perinephric stranding Normal appendix Hypodense right adnexal structure, 4.7 cm Anteverted uterus Urinary bladder intact Moderate osteopenia IMPRESSION: Renal arterial calcification, no hydronephrosis Normal appendix, no bowel obstruction Recommend pelvic sonography to exclude right adnexal mass
[2024-05-18] MEDS: LEVOFLOXACIN/D5W 500 MG IVPB 500 MG/100 ML BAG 100 MG IV (13:23)
[2024-05-18] MEDS: SODIUM CHLORIDE 0.9% 1000 ML 1,000 ML 999 ML IV (13:24)
[2024-05-18] MEDS: Vancomycin Inj 1,000 MG in SODIUM CHLORIDE 0.9% 250 ML 250 ML 150 MG IV (13:28)
[2024-05-18 14:04] LABS: HCG,Qualitative Serum Negative
[2024-05-18 14:07] LABS: Ammonia < 10 uMol/L (11-32)
--- NOTE | 2024-05-18 15:14 | ESCONSULT_ITS ---
<Statement entered by Alonso Lopez MD - 05/18/24 16:04> Agree with the documentation above by PGY 1 Dr. Daniel Plan of care discussed with supervising attending Dr. Mena Lopez M.D. PGY-3 HPI Data of Consult Primary Care Provider: Khadijah Veronica PA-C Consult Narrative History of present illness: Ms. Bajwa is a 43-year-old female with past medical history of hypertension, uncontrolled insulin-dependent diabetes, status post left AKA, chronic right lower extremity wound ulcer (does not appear to be infected), ESRD (diaysis M,W,F), history of asthma presented to ED with chief complaint of generalized weakness. Patient states that she missed dialysis on last week Friday and yesterday and today she was unable to finish her dialysis session. patient's initial blood pressure was 157/78, respiration 22 and a temperature of 100.6, lab findings include chronic leukocytosis hemoglobin 9.2 hematocrit 27.9, sodium 129 potassium 2.9 creatinine 5.2 GFR 10 and glucose of 274, magnesium 1.2 total bili 1.3, BNP 405 procalcitonin 30.93. Chest x-ray shows no pneumonia or pulmonary edema, and EKG showed sinus tachycardia with abnormal rhythm. Upon examining the patient patient states that she had recently fallen and was unable to answer majority of questions and appeared very confused due to her altered mental status CT of the head is requested, please attempt to complete CT of head and CT of abdomen pelvis for inpatient admission. Recommendations Mild repletion of potassium as patient is ESRD, will require slow repletion Patient may benefit from urgent dialysis session As patient initial presentation she was febrile patient may need influenza A&B, RSV, COVID Assessment and plan discussed with my senior resident Dr. Lopez & attending physician Dr. Mena Daniel (PGY-1)- Internal medicine resident cc:: cc: Exam Vital Signs Temp Pulse Resp BP Pulse Ox O2 Del Method O2 Flow Rate 99.6 F 110 H 22 H 157/78 H 97 Nasal Cannula 6 05/18/24 15:13 05/18/24 11:31 05/18/24 11:31 05/18/24 11:31 05/18/24 11:31 05/18/24 11:31 05/18/24 11:31 Results Labs 05/19/24 05:02 05/19/24 05:02 Labs: Short CBC 05/18/24 Range/Units 11:40 WBC 25.7 H (3.6-11.0) Thou/mm3 Hgb 9.2 L (12.0-16.0) g/dL Hct 27.9 L (36.0-46.0) % Plt Count 280 D (140-440) Thou/mm3 BMP 05/18/24 11:40 Sodium 129 L Potassium 2.9 L Chloride 95 L Carbon Dioxide 22.8 BUN 25 H Creatinine 5.2 H* Glucose 274 H Calcium 7.5 L Cardiac Enzymes 05/18/24 Range/Units 11:40 Troponin I 0.034 (0.0-0.045) ng/mL Liver Function 05/18/24 Range/Units 11:40 Total Bilirubin 1.3 H (0.3-1.2) mg/dL AST 36 H (0-34) U/L ALT 15 (10-49) U/L Alkaline Phosphatase 145 H (46-116) U/L Albumin 3.5 (3.5-5.0) gm/dL Quality Measures Quality Measures sepsis Current suspected stage: sepsis Possible source: unknown Blood cultures ordered: completed in ED Antibiotic ordered: No Medications Home Medications and Allergies Home Medications ?Medication ?Instructions ?Recorded ?Confirmed ?Type insulin glargine 100 unit/mL (3 38 unit subcut QDAY 04/01/24 05/18/24 History mL) subcutaneous pen (Basaglar KwikPen U-100 Insulin) insulin regular human 100 unit/mL See Protocol subcut TID 04/01/24 05/18/24 History injection solution (Novolin R Regular U-100 Insulin) lorazepam 0.5 mg tablet 0.5 mg PO HS 04/01/24 05/18/24 History amlodipine 5 mg tablet 5 mg PO DAILY 05/18/24 05/18/24 History Allergies Allergy/AdvReac Type Severity Reaction Status Date / Time amoxicillin [From Augmentin] Allergy Severe Swelling Verified 11/02/23 20:23 of Lip/Tongue/Throat clavulanic acid Allergy Severe Swelling Verified 11/02/23 20:23 [From Augmentin] of Lip/Tongue/Throat Visit Medications Discontinued Medications Vancomycin HCl 1,000 mg/ (Sodium Chloride) 250 mls @ 150 mls/hr IV X1 ONE Stop: 05/18/24 13:12 Last Infusion: 05/18/24 15:12 Dose: Infused Levofloxacin/Dextrose (Levaquin Ivpb) 500 mg in 100 mls @ 100 mls/hr IV X1 ONE Stop: 05/18/24 13:44 Last Infusion: 05/18/24 14:42 Dose: Infused Sodium Chloride (Ns) 1,000 mls @ 999 mls/hr IV .Q1H1M ONE Stop: 05/18/24 13:46 Last Infusion: 05/18/24 14:42 Dose: Infused Assessment & Plan Plan #Concern for acute stroke Due to acute onset altered mental status history of fall CT head was ordered which shows hypodense lesion in the frontal lobe, concern for acute stroke, pending official read by dr Schuler. reached out to ER provider Dr. Vazquez, about concern for acute stroke, may need to call stroke alert as well as get a CT angiogram and neurology recommendations before we can admit the patient for ESRD. Will handout to the late call team about pending neurology recommendations and CTA, Dr. Bobby said she will call the on-call team for admit once neurology recommendations are done. gaby henson [email or web address] Attending Provider Attestation/Addendum I reviewed labs, imaging, EKG, home medications and prior available records. Face to face evaluation was performed by me. I have personally examined the patient and discussed assessment and plan with the IM team. I reviewed the resident note and agree with the plan with exceptions as below. See my addendum on 05/18
--- NOTE | 2024-05-18 15:23 | PD.ADDHP ---
Addendum History & Physical Addendum Date of report being addended: 05/18/24 Narrative: Attending's attestation: I reviewed labs, imaging, EKG, home medications and prior available records. Face to face evaluation was performed by me. I have personally examined the patient and discussed assessment and plan with the IM team. I reviewed the resident note and agree with the plan with exceptions as below. Acute encephalopathy Sepsis, Unclear source Acute febrile illness ESRD on hemodialysis Hypokalemia Hyponatremia Plan: Ordered CT head to rule out intracranial pathologies Ordered CT scan of the abdomen/pelvis to rule out source of infection May be admitted if CT head is negative for acute bleed Consult nephrology for the ESRD
[2024-05-18 15:29] LABS: Collection Type, Urine Clean Catch
[2024-05-18 15:49] LABS: Amphetamine/Methamp Scrn,U Positive (Negative); Barbiturate Screen,Urine Negative (Negative); Benzodiazepines Screen,Urine Negative (Negative); Benzoylecgonine Screen, Ur Negative (Negative); Fentanyl Screen,Urine Negative (Negative); Opiate Screen,Urine Positive (Negative); THC Screen,Urine Negative (Negative)
[2024-05-18 15:50] LABS: Bilirubin,Urine Negative (Negative); Blood,Urine 1+ (Negative); Clarity,Urine Clear (Clear/Hazy); Color,Urine Yellow (Lt Yel-Yel); Glucose, Urine 4+ (Negative); Ketones,Urine Trace (Negative); Leukocyte Esterase,Urine Negative (Negative); Nitrite,Urine Negative (Negative); Protein,Urine 4+ (Neg - Trace); RBC,Urine 2 /hpf (0-3); Specific Gravity,Urine 1.017 (1.001-1.035); Squamous Epithelial Cell,Urine < 1 /hpf (0-5); Urobilinogen,Urine Negative mg/dL (0.0-1.0); WBC,Urine 10 /hpf (0-5)
[2024-05-18] MEDS: PANTOPRAZOLE INJ 40 MG VIAL IVP (18:39)
[2024-05-18] MEDS: INSULIN LISPRO (AdmeLOG) 1 UNIT/0.01 ML UNIT SC (18:39)
[2024-05-18] MEDS: Magnesium Sulfate 4 GM Ivpb 4 GM/50 ML BAG IV (18:39)
[2024-05-18] MEDS: POTASSIUM CHL 10 mEq IVPB 10 MEQ/100 ML BAG 100 MEQ IV ×4 (19:02→22:47)
[2024-05-18 19:12] LABS: Phosphorous 3.1 mg/dL (2.4-5.1)
--- NOTE | 2024-05-18 19:22 | ESHP_ITS ---
Documentation for date of: 05/18/24 HPI History of Present Illness Chief complaint: Generalized weakness, Abdominal pain and vomiting History of present illness: HPI: Patient is alert and oriented x 3, however upon further questioning patient began to have bilious vomiting and unable to be further questioning. Majority of history obtained from chart review. Patient is a 44-year-old female with a past medical history significant for asthma, chronic CVA, essential hypertension, insulin-dependent diabetes mellitus type 2 [6.8], diabetic neuropathy, normocytic anemia, end-stage renal disease on hemodialysis via [facility] M// presenting today with a chief complaint of generalized weakness, abdominal pain and vomiting. Apparently patient missed her hemodialysis session last week Friday and only tolerated 30 minutes of dialysis yesterday due to developing abdominal pain and generalized weakness. During my interview with her, she began to have bilious vomiting. No food contents, no hematemesis and no coffee-ground. Day team signed out that tufting machine fixer, Dr. Jimenez said to replete patient with 40 mEq KCl IV x 1 as she will not get dialysis until tomorrow. Of note patient recently completed a 6-week course of doxycycline 100 Mg p.o. twice daily and Keflex IV during dialysis sessions on 05/13/2024 for chronic right first toe osteomyelitis. Also on previous admission patient was DNR, however was unable to confirm CODE STATUS today due to patient having vomiting episode. Will place patient as full code for now until we are able to verify with her. ED course: BP 157/77, pulse 108, RR 22, temp to 100.6 F, SpO2 97% on 4L O2 via NC. Labs significant for Hb 9.2, HCT 27.9, WBC 25.7, NA 129, K2.9, CL 95, BUN 25, CR 5 point.Urinalysis significant for pH 8, 4+ protein, 4+ glucose, 1+ blood. CT brain was negative for acute hemorrhage, mass effect or midline shift. Abdomen/pelvis CT significant for perinephric stranding, renal artery calcification, hypodense right adnexal structure, 4.7 cm. Chest x-ray significant for right internal jugular catheter, increased vascular markings bilaterally, no signs of pulmonary edema, pleural effusion or consolidation. EKG significant for sinus tachycardia, rate 106, low voltage complexes, Q waves in inferior waves. Patient received levofloxacin 500 Mg IV x 1, normal saline 1 L bolus, vancomycin 1 g IV x 1, pantoprazole 40 Mg IV x 1, magnesium sulfate 4 g IV x 1 and KCl 40 mEq IV x 1 in the ED. Patient will be admitted for workup and management of sepsis secondary to possible line sepsis. Review of Systems Review of Systems ROS Unobtainable: unobtainable due to medical condition (Patient vomiting, unable to complete review) Past Medical History Past Medical History Comments PMH COMMENT: Past medical history: ? Asthma ? ESRD on hemodialysis via RIJ PermCath ? Insulin-dependent diabetes mellitus type 2 ? Diabetic neuropathy ? Chronic osteomyelitis right first toe ? Essential hypertension ? Normocytic anemia ? Chronic leukocytosis ? Hypocalcemia?chronic ? History of retinal detachment ? Legally blind right eye Medication list: ?Nifedipine 30 Mg p.o. daily ? Cyclobenzaprine 10 Mg p.o. at bedtime as needed ? Lorazepam 0.5 Mg p.o. at bedtime ? Insulin glargine 38 units SC daily ? Insulin R sliding scale Past surgical history: ?Left AKA - Cholecystectomy Allergies: ?Augmentin: Angioedema Social history: Patient is unemployed. She chronically smokes methamphetamine. Exam Vital Signs Temp Pulse Resp BP Pulse Ox O2 Del Method O2 Flow Rate 99.2 F 108 H 18 157/77 H 97 Nasal Cannula 4 05/18/24 18:21 05/18/24 18:21 05/18/24 18:21 05/18/24 18:21 05/18/24 18:21 05/18/24 18:21 05/18/24 15:36 Narrative Exam Constitutional Alert, oriented x 3 and moderate distress. Young female who appears older for her age on O2 via NC HEENT Legally blind right eye, trachea midline Respiratory Chest normal on inspection and clear auscultation bilaterally, RIJ catheter in situ, exit site clean. Cardiovascular S1 and S2 audible, RRR. No murmurs carotid bruit. JVD not assessed Abdominal Soft, obese and generalized tenderness in all quadrants on light palpation. BS + Genitourinary No bladder tenderness, no flank pain. Normal to palpation Musculoskeletal Extremities tone within normal limits. No LE edema. Neurological CN II - XII grossly intact. Extremity motor and sensation grossly intact. Skin Warm, dry and intact. No apparent lesions. Psychiatric Patient has good affect, is cooperative Results: Labs 05/19/24 05:02 05/19/24 05:02 Labs: Short CBC 05/18/24 Range/Units 11:40 WBC 25.7 H (3.6-11.0) Thou/mm3 Hgb 9.2 L (12.0-16.0) g/dL Hct 27.9 L (36.0-46.0) % Plt Count 280 D (140-440) Thou/mm3 BMP 05/18/24 11:40 Sodium 129 L Potassium 2.9 L Chloride 95 L Carbon Dioxide 22.8 BUN 25 H Creatinine 5.2 H* Glucose 274 H Calcium 7.5 L Cardiac Enzymes 05/18/24 Range/Units 11:40 Troponin I 0.034 (0.0-0.045) ng/mL Liver Function 05/18/24 Range/Units 11:40 Total Bilirubin 1.3 H (0.3-1.2) mg/dL AST 36 H (0-34) U/L ALT 15 (10-49) U/L Alkaline Phosphatase 145 H (46-116) U/L Albumin 3.5 (3.5-5.0) gm/dL Urine 05/18/24 Range/Units 15:25 Urine Color Yellow (Lt Yel-Yel) Urine Clarity Clear (Clear/Hazy) Urine pH 8.0 H (5.0-7.0) Ur Specific [place] 1.017 (1.001-1.035) Urine Protein 4+ A (Neg - Trace) Urine Glucose (UA) 4+ A (Negative) Quality Measures Quality Measures sepsis Current suspected stage: sepsis Possible source: unknown Blood cultures ordered: completed in ED Antibiotic ordered: Yes Medications Home Medications and Allergies Home Medications ?Medication ?Instructions ?Recorded ?Confirmed ?Type insulin glargine 100 unit/mL (3 38 unit subcut QDAY 04/01/24 05/18/24 History mL) subcutaneous pen (Basaglar KwikPen U-100 Insulin) insulin regular human 100 unit/mL See Protocol subcut TID 04/01/24 05/18/24 History injection solution (Novolin R Regular U-100 Insulin) lorazepam 0.5 mg tablet 0.5 mg PO HS 04/01/24 05/18/24 History amlodipine 5 mg tablet 5 mg PO DAILY 05/18/24 05/18/24 History Allergies Allergy/AdvReac Type Severity Reaction Status Date / Time amoxicillin [From Augmentin] Allergy Severe Swelling Verified 11/02/23 20:23 of Lip/Tongue/Throat clavulanic acid Allergy Severe Swelling Verified 11/02/23 20:23 [From Augmentin] of Lip/Tongue/Throat Visit Medications Acetaminophen (Acetaminophen 325 Mg Tablet) 650 mg PO Q6H PRN PRN Reason: Fever >101.5 Stop: 06/17/24 18:18 Acetaminophen (Acetaminophen 325 Mg Tablet) 650 mg PO Q6H PRN PRN Reason: PAIN SCALE 1-3 (mild Stop: 06/17/24 18:18 Dextrose (Dextrose 50%-Water Inj 50 Ml Syringe) 25 ml IV Q15MIN PRN PRN Reason: BG 50-70 responsive npo pt Stop: 06/17/24 18:23 Dextrose (Dextrose 50%-Water Inj 50 Ml Syringe) 50 ml IV Q15MIN PRN PRN Reason: BG <50 OR BG <70 & pt unresponsive Stop: 06/17/24 18:23 Glucagon (Glucagon Inj 1 Mg Vial) 1 mg IM Q15MIN PRN PRN Reason: BG <70, and no IV access Magnesium Sulfate (Magnesium Sulfate Ivpb) 4 gm in 50 mls @ 12.5 mls/hr IV X1 ONE Stop: 05/18/24 22:20 Last Admin: 05/18/24 18:39 Dose: 12.5 mls/hr Magnesium Sulfate (Magnesium Sulfate Ivpb) 2 gm in 50 mls @ 25 mls/hr IV X1 ONE Stop: 05/18/24 23:59 Potassium Chloride (Kcl Ivpb) 10 meq in 100 mls @ 100 mls/hr IV Q1H NASREEN Stop: 05/18/24 22:32 Last Admin: 05/18/24 19:02 Dose: 100 mls/hr Levofloxacin/Dextrose (Levaquin Ivpb) 250 mg in 50 mls @ 50 mls/hr IV Q48H [facility] Stop: 05/26/24 08:59 Insulin Glargine (Insulin Glargine (Lantus) 5 Unit/0.05 Ml (Per 5 Units)) 12 unit SC QDAY NASREEN Stop: 06/17/24 18:44 Insulin Human Lispro (Insulin Lispro (Admelog) 1 Unit/0.01 Ml Unit) 0 unit SC Q6H NASREEN; Protocol Stop: 06/17/24 18:29 Last Admin: 05/18/24 18:39 Dose: 3 unit Ondansetron HCl (Ondansetron Inj 2 Mg/Ml Inj 2 Ml) 4 mg IV Q6H PRN; Protocol PRN Reason: NAUSEA OR VOMITING Stop: 06/17/24 18:18 Pantoprazole Sodium (Pantoprazole Inj 40 Mg Vial) 40 mg IVP QDAY NASREEN Stop: 06/17/24 18:29 Last Admin: 05/18/24 18:39 Dose: 40 mg Pharmacy Consult (Pharmacy Renal Dose Adjustment 1 Ea) 1 each XX PRN PRN PRN Reason: CONSULT Stop: 06/17/24 18:40 Discontinued Medications Calcium Carbonate (Calcium Carbonate 600 Mg Tablet) 600 mg PO X1 ONE Stop: 05/18/24 18:40 Vancomycin HCl 1,000 mg/ (Sodium Chloride) 250 mls @ 150 mls/hr IV X1 ONE Stop: 05/18/24 13:12 Last Infusion: 05/18/24 15:12 Dose: Infused Levofloxacin/Dextrose (Levaquin Ivpb) 500 mg in 100 mls @ 100 mls/hr IV X1 ONE Stop: 05/18/24 13:44 Last Infusion: 05/18/24 14:42 Dose: Infused Sodium Chloride (Ns) 1,000 mls @ 999 mls/hr IV .Q1H1M ONE Stop: 05/18/24 13:46 Last Infusion: 05/18/24 14:42 Dose: Infused Assessment & Plan Plan Patient is a 44-year-old female with a past medical history significant for asthma, chronic CVA, essential hypertension, insulin-dependent diabetes mellitus type 2 [6.8], diabetic neuropathy, normocytic anemia, end-stage renal disease on hemodialysis via RIJ Perm[facility] M// presenting today with a chief complaint of generalized weakness, abdominal pain and vomiting. Patient will be admitted for workup and management of sepsis secondary to possible line sepsis. 1. Sepsis secondary to likely infected RIJ PermCath 2. SIRS 4/4 3. Leukocytosis?chronic 4. Chronic right great toe osteomyelitis 5. Vomiting Patient presented with generalized weakness, abdominal pain and bilious vomiting. On exam patient has generalized abdominal tenderness. DDx: Infected RIJ PermCath, chronic right great toe osteomyelitis, UTI, pelvic abscess SIRS 4/4. HR 108, RR 22, temp 100.6, WBC 25.[address] Pro-W[address] brain was negative for acute hemorrhage, mass effect or midline shift. 2 l artery calcification, hypodense right adnexal structure, 4.7 cm. Of note patient recently completed a 6-week course of antibiotics on 05/13/2024 for right great toe osteomyelitis with doxycycline 100 Mg p.o. twice daily and Keflex during dialysis sessions. On all previous admissions patient also has chronic leukocytosis with WBC always elevated in the 20s. Plan: ? N.p.o. ? Ordered blood and urine cultures ? To consider removal of RIJ catheter as likely possible source of infection ? Levofloxacin 250 Mg IV every 48 hourly [renally dosed] started on 05/19? ? Vancomycin IV, pharmacy to dose 6. ESRD on hemodialysis via right RIJ PermCath // 7. Hypokalemia 8. Hyponatremia 9. Hypochloremia 10. Hypocalcemia 11. Hypomagnesemia Patient follows up with tufting machine fixer Dr. Livingston Patient missed hemodialysis session last Friday and only was able to tolerate 30 minutes hemodialysis on Friday due to developing generalized abdominal pain. NA 129, K2.9, CL 95, corrected Ca 7.9, Mg 1.2 Plan: ? For hemodialysis tomorrow ? KCl 40 mEq IV x 1 ? Magnesium sulfate 4 g IV x 1 ? Patient received 1 L normal saline IV fluid bolus ? Renally dose medication ? Avoid nephrotoxic agents ? Superintendent Measurement, Dr. Livingston consulted and is closely following the case. Appreciate recommendations. 12. Right adnexal mass for investigation Abdomen/pelvis CT significant for perinephric stranding, renal artery calcification, hypodense right adnexal structure, 4.7 cm. Plan: - Ordered pelvic USS to further investigate 13. Chronic right great toe osteomyelitis 14. Left AKA 15. Diabetic neuropathy Of note patient recently completed a 6-week course of antibiotics on 05/13/2024 for right great toe osteomyelitis with doxycycline 100 Mg p.o. twice daily and Keflex during dialysis sessions. 16. Chronic CVA On admission CT brain was negative for acute hemorrhage, mass effect or midline shift. Still showed old small right caudate infarcts and left basal ganglia infarct Insulin-dependent diabetes mellitus type 2 [6.8] Home medication insulin glargine 38 units SC at bedtime Plan: ? Insulin lispro sliding scale 17. Essential hypertension On admission BP 157/77 Home medication nifedipine 30 Mg p.o. daily Plan: ? Antihypertensive held for now in light of sepsis 18. Methamphetamine abuse Patient chronically smokes meth Utox Meth positive 19. 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 History of retinal detachment Plan: ? Ophthalmology follow-up as outpatient 21. Chronic normocytic anemia On admission Hb 9.2 DDx: RUTH ANN, blood loss anemia, anemia of chronic disease, thalassemia, lead poisoning. Iron panel significant for FE 12, TIBC 207, ferritin 219. Mixed picture of iron deficiency and anemia of chronic disease. Patient received IV iron [04/04 -04/12/2024] 1 unit PRBC 04/05 Plan: - Suggest Epogen during Dialysis sessions. Health maintenance: Disposition: IV antibiotics, Nephro consult Diet: NPO Lines: pIVs GI Prophylaxis: Pantoprazole Thrombo Prophylaxis: Heparin Code status: FULL CODE Plan of care discussed with Attending Dr. Moshe Barton MD PGY 1 Attending Provider Attestation/Addendum I reviewed labs, imaging, EKG, home medications and prior available records. Face to face evaluation was performed by me. I have personally examined the patient and discussed assessment and plan with the IM team. I reviewed the resident note and agree with the plan with exceptions as below. Acute encephalopathy Sepsis, Unclear source: Possible right foot/toe OM vs HD line infection Acute febrile illness History of right foot OM Pelvic Mass ESRD on hemodialysis Hypokalemia Hyponatremia Plan: Ordered CT head to rule out intracranial pathologies: negative for acute pathologies. Showed old CVA. Ordered CT scan of the abdomen/pelvis to rule out source of infection: showed no acute source. Started Vancomycin/levofloxacin Ordered pelvic US Trend WBC Follow up cultures Consult nephrology for the ESRD/HD management Monitor BMP Right foot wound care
--- NOTE | 2024-05-18 19:26 | XR_ITS ---
Examination: Pelvic ultrasound, transabdominal, complete Technique: Transabdominal ultrasound of the pelvis performed using grayscale imaging Date and time of exam: May 18, 2024 10:29 PM Indications: Right pelvic mass on CT pelvis study today, abdominal pelvic pain this week Findings: Uterus 10.9 x 6.5 x 7.2 cm 27 mm cervical cyst Lower uterine segment cyst 7 mm No intrauterine gestation Endometrial stripe 5 mm Right ovary 5.3 x 3.1 x 4.8 cm arterial flow 4.8 x 3.2 x 4.1 cm cyst Left ovary obscured by bowel gas Impression: No intrauterine gestation or solid uterine mass Right ovarian simple cyst 4.8 x 3.2 x 4.1 cm
[2024-05-18] MEDS: INSULIN GLARGINE (Lantus) 5 UNIT/0.05 ML (PER 5 UNITS) 12 UNIT SC (19:41)
[2024-05-18] MEDS: CALCIUM CARBONATE 600 MG TABLET PO (19:42)
[2024-05-18] MEDS: ONDANSETRON INJ 2 MG/ML INJ 2 ML 4 MG IV (19:42)
[2024-05-18] MEDS: HEPARIN SOD INJ 5000 UNIT/ML VIAL SC (21:12)
[2024-05-18 21:53] LABS: Troponin I 0.035 ng/mL (0.0-0.045)
[2024-05-18] MEDS: Magnesium Sulfate 2 GM Ivpb 2 GM/50 ML BAG IV (22:30)
[2024-05-19] VITALS (21 sets, daily range): BP systolic 109–163; BP diastolic 59–88; PULSE 83–103; RESP 16–19; TEMP 36.3–37.5; O2SAT 97–99; BMI 31.5
[2024-05-19] MEDS: HEPARIN SOD INJ 5000 UNIT/ML VIAL SC ×3 (05:19→22:24)
[2024-05-19 05:35] LABS: Basophils # (Auto) 0.1 Thou/mm3 (0.0-0.2); Basophils % (Auto) 0 % (0-2.5); Eosinophils % (Auto) 0 % (0-10); Hematocrit 24.4 % (36.0-46.0); Immature Granulocytes % (Auto) 1 % (0-0); Immature Granulocytes Auto 0.31 Thou/mm3 (0.00-0.00); Lymphocytes # (Auto) 1.4 Thou/mm3 (1.0-4.8); Lymphocytes % (Auto) 6 % (10-50); Mean Corpuscular Hemoglobin 28.9 pg (25.0-35.0); Mean Corpuscular Volume 85 fL (80-100); Monocytes % (Auto) 5 % (0-12); Neutrophils # (Auto) 19.3 Thou/mm3 (1.8-7.7); Neutrophils % (Auto) 87 % (37-80); Nucleated Red Blood Cell % 0 /100 WBC (0); Platelet Count 255 Thou/mm3 (140-440); RDW Standard Deviation 45.8 fL (36.4-46.3); Red Blood Count 2.87 Miln/mm3 (4.00-5.20); White Blood Count 22.1 Thou/mm3 (3.6-11.0)
[2024-05-19 05:46] LABS: Hemoglobin 8.3 g/dL (12.0-16.0); Partial Thromboplastin Time 38.4 Seconds (22.0-36.0); Prothrombin Time 11.4 Seconds (9.0-12.2)
[2024-05-19 06:16] LABS: Alanine Aminotransferase 10 U/L (10-49); Albumin, Serum 3.1 gm/dL (3.5-5.0); Albumin/Globulin Ratio 1.1 (1.2-2.2); Alkaline Phosphatase 129 U/L (46-116); Anion Gap 13 (7-16); Aspartate Amino Transferase 19 U/L (0-34); BUN/Creatinine Ratio 6 Ratio (12-20); Bilirubin,Total 1.2 mg/dL (0.3-1.2); Blood Urea Nitrogen 36 mg/dL (9-23); Calcium 7.4 mg/dL (8.3-10.6); Calcium (Corrected) 8.1 mg/dL (8.5-10.1); Carbon Dioxide 22.5 mMol/L (20.0-31.0); Chloride 96 mMol/L (98-107); Creatinine (Component) 6.2 mg/dL (0.6-1.3); Globulin 2.8 gm/dL (2.3-3.5); Glucose 144 mg/dL (74-106); Magnesium 3.3 mg/dL (1.6-2.6); Osmolality,Calculated 273 (275-295); Phosphorous 4.4 mg/dL (2.4-5.1); Potassium 3.2 mMol/L (3.4-5.1); Sodium 131 mMol/L (136-145); Thyroid Stimulating Hormone 0.72 uIU/mL (0.55-4.78); Total Protein 5.9 gm/dL (5.7-8.2); Troponin I 0.022 ng/mL (0.0-0.045); eGFR 8 See Note
[2024-05-19] MEDS: ONDANSETRON INJ 2 MG/ML INJ 2 ML 4 MG IV (09:48)
[2024-05-19] MEDS: PANTOPRAZOLE INJ 40 MG VIAL IVP (09:48)
[2024-05-19] MEDS: LEVOFLOXACIN/D5W 250MG IVPB 250 MG/50 ML BAG 50 MG IV (10:09)
--- NOTE | 2024-05-19 10:57 | ECHO_ITS ---
Transthoracic Echo Report Ht (in): 61 Wt (lb): 167 Exam Location: [facility] Status: Inpatient [place] [employer] Molder: Hetal Casillas Indications: Procedure Performed: BP: 125 / 75 HR: 88 Rhythm: Sinus Technical Quality: Fair MEASUREMENTS (Male / Female) Normal Values 2D ECHO LV Diastolic Diameter PLAX 5.3 cm 4.2 - 5.9 / 3.9 - 5.3 cm LV Systolic Diameter PLAX 3.8 cm IVS Diastolic Thickness 0.9 cm 0.6 - 1.0 / 0.6 - 0.9 cm LVPW Diastolic Thickness 0.9 cm 0.6 - 1.0 / 0.6 - 0.9 cm LV Relative Wall Thickness 0.4 LVOT Diameter 1.9 cm LA Volume Index 27.9 cm?/m? 16 - 28 cm?/m? Ascending Aorta Diameter 3.6 cm M-MODE Aortic Root Diameter MM 2.6 cm LA Systolic Diameter MM 3.4 cm LA Ao Ratio MM 1.3 AV Cusp Separation MM 2.1 cm DOPPLER AV Peak Velocity 172.0 cm/s AV Peak Gradient 11.8 mmHg AV Mean Gradient 7.0 mmHg AV Velocity Time Integral 37.2 cm LVOT Peak Velocity 120.0 cm/s LVOT Peak Gradient 5.8 mmHg LVOT Velocity Time Integral 23.6 cm LVOT Cardiac Index 3207.1 cm?/min?m? AV Area Cont Eq vti 1.8 cm? AV Area Cont Eq pk 2.0 cm? MV Peak Velocity 116.0 cm/s MV Peak Gradient 5.4 mmHg MV Mean Velocity 78.8 cm/s MV Mean Gradient 3.0 mmHg MV Area PHT 3.9 cm? MR Peak Velocity 428.5 cm/s MR Peak Gradient 73.4 mmHg Mitral E Point Velocity 107.0 cm/s Mitral A Point Velocity 90.2 cm/s Mitral E to A Ratio 1.2 LV E' Lateral Velocity 11.9 cm/s Mitral E to LV E' Lateral Ratio 9.0 LV E' Septal Velocity 8.3 cm/s Mitral E to LV E' Septal Ratio 12.9 TR Peak Velocity 248.0 cm/s TR Peak Gradient 24.6 mmHg FINDINGS Left Ventricle Normal left ventricular size, wall thickness, systolic function with no obvious regional wall motion abnormalities. The ejection fraction is visually estimated at 55-60%. Right Ventricle The right ventricle is normal in size and systolic function. The estimated right ventricular systoli c pressure, 30mmHg. RAP 5. Left Atrium The left atrium is normal by two-dimensional, color flow and Doppler imaging with no structural abnormalities, no thrombus formation present. Right Atrium The right atrium is normal by two-dimensional imaging, color flow and Doppler imaging with no struct ural abnormalities, no thrombus formation present. Atrial Septum The interatrial septum appears normal with no evidence of a shunt. Aorta The aorta is normal by two-dimensional, color flow and Doppler interrogation. Mitral Valve The mitral valve is normal by two-dimensional, color flow and Doppler interrogation. There is mild mitral valve regurgitation. Aortic Valve The aortic valve is trileaflet and normal by two-dimensional, color flow and Doppler interrogation. There is no significant aortic valve regurgitation. Tricuspid Valve The tricuspid valve is normal by two-dimensional, color flow and Doppler interrogation. There is mil d tricuspid valve regurgitation. Pulmonic Valve The pulmonic valve is normal by two-dimensional, color flow and Doppler interrogation. There is no significant pulmonic valve regurgitation. Vessels The pulmonary artery appears normal. The inferior vena cava pulmonary and hepatic veins appear tramaine l. Pericardium The pericardium is normal by two-dimensional imaging. There is no significant pericardial effusion. CONCLUSIONS Normal LV size and function. Estimated EF 55-60% Normal RV size and function Mild MR, TR. Nichole Fernandez (Electronically Signed) Final Date: 20 May 2024 12:19
--- NOTE | 2024-05-19 12:16 | PC.SS ---
Follow up note: Pt is on IV antibiotic. Pt will have dialysis today.
[2024-05-19] MEDS: VANCOMYCIN/NS 500 MG IVPB 100 ML 120 MG IV (13:23)
--- NOTE | 2024-05-19 14:16 | PC.NURSE ---
Patient to dialysis via bed with ongoing IV fluid vancomycin on her right hand.
--- NOTE | 2024-05-19 16:27 | PD.RESPRO ---
Documentation for date of: 05/19/24 Senior resident attestation: Patient evaluated and examined at the bedside, plan of care discussed with rest of the team including my attending physician, except as noted. Patient is evaluated the bedside, mental status is at baseline, A and O x 3, patient denied IV drug abuse, CODE STATUS was confirmed, patient reported she will be DNR/DNI, hemodialysis scheduled for today. Source of sepsis continues to be obscure, blood cultures positive for GPC, started on IV antibiotics, will get echocardiogram and repeat cultures in the a.m. Quresh PGY2 Subjective Subjective Interval history: 05/19: No acute overnight events patient seen and examined at bedside this morning patient is more alert and awake and able to converse. Patient states that she missed dialysis session last week on Friday and was unable to tolerate dialysis on Friday because she felt sick and was very nauseous. Patient states that it was probably likely because on Friday before dialysis session she smoked meth which made her sick. Patient also was complaining of back pain on admission however endorses resolution of back pain. Patient also states that she has a bruise on upper lip on left side because she fell off her bed which is too high. Because patient was altered yesterday the team was not able to get a CODE STATUS on her and placed her on full code upon conversation this morning patient states that she is DNR/DNI. Pt complains of some tenderness all over her abdomen and states that she continues to be very nauseous and vomiting. patient has no other complaints Exam Vital Signs Temp Pulse Resp BP Pulse Ox O2 Del Method O2 Flow Rate 98.4 F 96 18 130/77 98 Nasal Cannula 2 05/19/24 14:00 05/19/24 16:15 05/19/24 14:00 05/19/24 16:15 05/19/24 14:00 05/19/24 12:00 05/19/24 14:00 Narrative Exam GENERAL: A&Ox3 . Awake, Not in acute distress NEURO: no focal neurological deficits HEENT: Atraumatic, Normocephalic. mucous membranes moist. Eyes open, Legally blind right eye, RIJ catheter site clean HEART: Normal Heart Sounds LUNGS: Clear to auscultation with no wheezing or crackles. ABDOMEN: soft, non-distended, generalized tenderness in all quadrants on light palpation, no guarding or rebound tenderness SKIN: No Rash or ecchymoses EXTREMITIES: No edema, tenderness, able to move all 4 extremities, pedal pulses palpated Objective Labs 05/20/24 04:30 05/20/24 04:30 Labs: Laboratory Results - last 24 hr 05/18/24 05/18/24 05/19/24 13:36 20:48 05:02 WBC 22.1 H RBC 2.87 L Hgb 8.3 L Hct 24.4 L MCV 85 MCH 28.9 MCHC 34.0 RDW Std Deviation 45.8 Plt Count 255 Neut % (Auto) 87 H Lymph % (Auto) [address] % (Auto) 5 Eos % (Auto) 0 Baso % (Auto) 0 Neut # (Auto) 19.3 H Lymph # (Auto) 1.4 [place] # (Auto) 1.0 H Eos # (Auto) 0.0 Baso # (Auto) 0.1 Immature Gran # (Auto) 0.31 H Absolute Nucleated RBC 0.00 Immature Gran % 1 H Nucleated RBC % 0 PT 11.4 INR 1.0 APTT 38.4 H Sodium 131 L Potassium 3.2 L Chloride 96 L Carbon Dioxide 22.5 Anion Gap 13 BUN 36 H Creatinine 6.2 H* D Estim Creat Clear Calc Not Performed. eGFR 8 L* BUN/Creatinine Ratio 6 L Glucose 144 H D Calculated Osmolality 273 L Calcium 7.4 L Corrected Calcium 8.1 L Phosphorus 3.1 4.4 Magnesium 3.3 H Total Bilirubin 1.2 AST 19 ALT 10 Alkaline Phosphatase 129 H Troponin I 0.035 0.022 Total Protein 5.9 Albumin 3.1 L Globulin 2.8 Albumin/Globulin Ratio 1.1 L TSH 0.72 Quality Measures Quality Measures sepsis Current suspected stage: sepsis Possible source: unknown Blood cultures ordered: completed in ED Antibiotic ordered: Yes Assessment & Plan Assessment Current Active Medications: Generic Name Dose Route Start Last Admin Trade Name Freq PRN Reason Stop Dose Admin Acetaminophen 650 mg 05/18/24 20:01 Acetaminophen Supp 650 Mg Supp [place] 06/17/24 20:00 Q6HR PRN Pain Or Fever > 100.3 Aspirin 81 mg 05/19/24 11:00 05/19/24 11:45 Aspirin Ec 81 Mg Tabec PO 06/18/24 10:59 Not Given QDAY [facility] Atorvastatin Calcium 40 mg 05/19/24 21:00 Atorvastatin Calcium 20 Mg Tablet PO 06/18/24 20:59 HS NASREEN Dextrose 25 ml 05/18/24 18:24 Dextrose 50%-Water Inj 50 Ml Syringe IV 06/17/24 18:23 Q15MIN PRN BG 50-70 responsive npo pt Dextrose 50 ml 05/18/24 18:24 Dextrose 50%-Water Inj 50 Ml Syringe IV 06/17/24 18:23 Q15MIN PRN BG <50 OR BG <70 & pt unresponsive Glucagon 1 mg 05/18/24 18:24 Glucagon Inj 1 Mg Vial IM Q15MIN PRN BG <70, and no IV access Heparin Sodium (Porcine) 5,000 unit 05/18/24 22:00 05/19/24 13:23 Heparin Sod Inj 5000 Unit/Ml Vial SC 06/01/24 21:59 5,000 unit Q8HR NASREEN Administration Heparin Sodium (Porcine) 3,500 unit 05/19/24 16:00 Heparin Sod Inj 1000 Unit/Ml Vial 10 Ml INDWELLCAT 06/02/24 15:59 X1 PRN DIALYSIS Albumin Human 25 gm in 100 mls @ 100 mls/min 05/19/24 07:33 Albuminar-25 Ivpb IV PRN PRN DIALYSIS Promethazine HCl 12.5 mg/ 50.5 mls @ 2.5 mls/min 05/19/24 13:51 Sodium Chloride IV 06/18/24 13:50 Q6HR PRN NAUSEA OR VOMITING Insulin Glargine 12 unit 05/18/24 18:45 05/19/24 10:09 Insulin Glargine (Lantus) 5 Unit/0.05 Ml (Per 5 Units) SC 06/17/24 18:44 Not Given QDAY [facility] Insulin Human Lispro 0 unit 05/19/24 11:30 05/19/24 11:29 Insulin Lispro (Admelog) 1 Unit/0.01 Ml Unit SC 06/18/24 11:29 Not Given ACHS [facility] Protocol Ondansetron HCl 4 mg 05/18/24 18:19 05/19/24 09:48 Ondansetron Inj 2 Mg/Ml Inj 2 Ml IV 06/17/24 18:18 4 mg Q6H PRN Administration NAUSEA OR VOMITING Protocol Pantoprazole Sodium 40 mg 05/18/24 18:30 05/19/24 09:48 Pantoprazole Inj 40 Mg Vial IVP 06/17/24 18:29 40 mg QDAY NASREEN Administration Pharmacy Consult 1 each 05/18/24 18:41 Pharmacy Renal Dose Adjustment 1 Ea XX 06/17/24 18:40 PRN PRN CONSULT Pharmacy Consult 1 each 05/19/24 09:45 Vancomycin Pharmacy To Dose 1 Each Each IV 06/18/24 09:44 QDAY PRN CONSULT Plan Patient is a 44-year-old female with a past medical history significant for asthma, chronic CVA, essential hypertension, insulin-dependent diabetes mellitus type 2 [6.8], diabetic neuropathy, normocytic anemia, end-stage renal disease on hemodialysis via RIJ PermCath M// presenting today with a chief complaint of generalized weakness, abdominal pain and vomiting. Patient will be admitted for workup and management of sepsis secondary to possible line sepsis. #Sepsis secondary to likely infected RIJ PermCath #SIRS 4/4 #Leukocytosis?chronic #Chronic right great toe osteomyelitis #Intractable vomiting Patient presented with generalized weakness, abdominal pain and bilious vomiting. On exam patient has generalized abdominal tenderness. DDx: Infected RIJ PermCath, chronic right great toe osteomyelitis, UTI, pelvic abscess SIRS 4/4. HR 108, RR 22, temp 100.6, WBC 25.[address]-[place] brain was negative for acute hemorrhage, mass effect or midline shift. 2 l artery calcification, hypodense right adnexal structure, 4.7 cm. patient recently completed a 6-week course of antibiotics on 05/13/2024 for right great toe osteomyelitis with doxycycline 100 Mg p.o. twice daily and Keflex during dialysis sessions. On all previous admissions patient also has chronic leukocytosis with WBC always elevated in the 20s. Plan: ? N.p.o. as Pt is nauseas and unable to tolerate oral diet ? Ordered blood and urine cultures ? To consider removal of RIJ catheter as likely possible source of infection ? Levofloxacin 250 Mg IV every 48 hourly [renally dosed] started on 05/19? ? Vancomycin IV, pharmacy to dose -Zofran and promethazine as needed for nausea and vomiting #ESRD on hemodialysis via right RIJ PermCath M/W/ Patient follows up with pickling operator Dr. Livingston Patient missed hemodialysis session last Friday and only was able to tolerate 30 minutes hemodialysis on Friday due to developing generalized abdominal pain. Plan: ? Pt underwent hemodialysis today (05/19) ? Renally dose medication ? Avoid nephrotoxic agents ? Pewter Caster, Dr. Livingston consulted and is closely following the case. Appreciate recommendations. #Right adnexal mass for investigation Abdomen/pelvis CT significant for perinephric stranding, renal artery calcification, hypodense right adnexal structure, 4.7 cm. Plan: - Ordered pelvic USS to further investigate #Chronic right great toe osteomyelitis #AKA #Diabetic neuropathy Of note patient recently completed a 6-week course of antibiotics on 05/13/2024 for right great toe osteomyelitis with doxycycline 100 Mg p.o. twice daily and Keflex during dialysis sessions. #Chronic CVA On admission CT brain was negative for acute hemorrhage, mass effect or midline shift. Still showed old small right caudate infarcts and left basal ganglia infarct Insulin-dependent diabetes mellitus type 2 [6.8] Home medication insulin glargine 38 units SC at bedtime Plan: ? Insulin lispro sliding scale #Essential hypertension On admission BP 157/77 Home medication nifedipine 30 Mg p.o. daily Plan: ? 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 Ophthalmology follow-up as outpatient #Chronic normocytic anemia On admission Hb 9.2 DDx: RUTH ANN, blood loss anemia, anemia of chronic disease, thalassemia, lead poisoning. Iron panel significant for FE 12, TIBC 207, ferritin 219. Mixed picture of iron deficiency and anemia of chronic disease. Patient received IV iron [04/04 -04/12/2024] 1 unit PRBC 04/05 Plan: - Suggest Epogen during Dialysis sessions. Health maintenance: Disposition: IV antibiotics, Nephro consult Diet: NPO Lines: pIVs GI Prophylaxis: Pantoprazole Thrombo Prophylaxis: Heparin Code status: DNR/DNI Assessment and plan discussed with my senior resident Dr. Shaikh & attending physician Dr. Vasu Daniel (PGY-1)- Internal medicine resident Attending Provider Attestation/Addendum Nataliya Flores, , attest that I was physically present for the lindsay portions of the service and evaluated the patient with the resident and I reviewed and discussed the case with the resident and agree with the resident's findings and plans of care as documented above Patient seen and eval this a.m. Patient states that she had back pain during dialysis and could not tolerate it on Friday and had another hour and a half to go when she asked for dialysis to be stopped and was driven home by her family member. During the drive home, patient developed nausea and vomiting and has since been having persistent nausea and vomiting, prompting her to be brought to the ED overnight. Patient is noted to have a bruise over her right upper lip and she stated that she had fallen out of bed on Friday. A CT head was done upon admission and was negative for any acute intracranial findings. Patient was noted to have an elevated WBC count of 25.7 upon evaluation in the ED and was febrile with a temperature of 100.6. Patient states that she is able to produce urine and denies any dysuria. She currently states that her back pain resolved completely upon arriving to the ED, but she continues to have some nausea and vomiting. Patient denies any saddle anesthesia or loss of bowel/ bladder control. Per chart review, patient was very lethargic upon presentation in the ED. She is also noted to be positive for methamphetamine. Patient admitted that she last used methamphetamine on Friday and endorses use of marijuana. Patient denies any IV drug use otherwise. Patient is noted to test positive for GPC in 2 out of 2 blood cultures. Dialysis catheter is in place but appears to have some yellow fluid over the dressing. Patient states it could be from her emesis on Friday when she was going home after dialysis. She otherwise denies any dysuria. Will repeat blood culture in AM. Will continue with IV vancomycin. If she continues to have positive blood cultures, may need to remove dialysis catheter. Added promethazine for nausea and vomiting. Patient is due for dialysis today. Suspect that nausea and vomiting could also be a component of uremia. Patient has no pain on palpation of spine and no step-offs or abnormalities on exam. Patient is otherwise neurologically intact. Altered mental status likely secondary to recent methamphetamine use as well.
[2024-05-19] MEDS: EPOETIN ALFA-EPBX INJ 10,000 UNIT/ML VIAL (NON-ESRD) 10000 UNIT SC (17:02)
[2024-05-19] MEDS: HEPARIN SOD INJ 1000 UNIT/ML VIAL 10 ML 3500 UNIT INDWELLCAT (17:06)
--- NOTE | 2024-05-19 18:01 | PC.NURSE ---
Dialysis completed for 3 hrs, tolerated well. Pt alert/oriented x4. No complaints. Respiration even and unlabored. Saturating at 99% on O2 at 2L/min via nc. Able to removed 1100 ml of fluid net. Post tx BP 145/87, HR 101, Temp 98. Pt back in her room. Call light within reached. Report given to Toshia ROMERO
--- NOTE | 2024-05-19 18:15 | PC.NURSE ---
Patient back to unit from dialysis. Report received from Kunal ROMERO. Removed 1.1L of fluid.
[2024-05-19] MEDS: ATORVASTATIN CALCIUM 20 MG TABLET 40 MG PO (20:05)
[2024-05-19] MEDS: INSULIN LISPRO (AdmeLOG) 1 UNIT/0.01 ML UNIT SC (20:05)
[2024-05-20] VITALS (9 sets, daily range): BP systolic 107–142; BP diastolic 70–82; PULSE 18–94; RESP 17–19; TEMP 36–36.9; O2SAT 94–100; BMI 31.5
[2024-05-20] MEDS: ONDANSETRON INJ 2 MG/ML INJ 2 ML 4 MG IV ×2 (02:36→08:30)
[2024-05-20] MEDS: HEPARIN SOD INJ 5000 UNIT/ML VIAL SC ×3 (05:12→21:22)
[2024-05-20 06:39] LABS: Basophils # (Auto) 0.1 Thou/mm3 (0.0-0.2); Basophils % (Auto) 0 % (0-2.5); Eosinophils % (Auto) 0 % (0-10); Hematocrit 25.9 % (36.0-46.0); Immature Granulocytes % (Auto) 1 % (0-0); Immature Granulocytes Auto 0.16 Thou/mm3 (0.00-0.00); Lymphocytes # (Auto) 1.7 Thou/mm3 (1.0-4.8); Lymphocytes % (Auto) 10 % (10-50); Mean Corpuscular HGB Conc 32.4 g/dl (31.0-37.0); Mean Corpuscular Hemoglobin 28.2 pg (25.0-35.0); Mean Corpuscular Volume 87 fL (80-100); Monocytes # (Auto) 1.1 Thou/mm3 (0.0-0.8); Monocytes % (Auto) 7 % (0-12); Neutrophils # (Auto) 13.6 Thou/mm3 (1.8-7.7); Neutrophils % (Auto) 82 % (37-80); Nucleated Red Blood Cell # 0.03 Thou/mm3 (0.00-0.00); Nucleated Red Blood Cell % 0 /100 WBC (0); Platelet Count 261 Thou/mm3 (140-440); RDW Standard Deviation 47.9 fL (36.4-46.3); Red Blood Count 2.98 Miln/mm3 (4.00-5.20); White Blood Count 16.6 Thou/mm3 (3.6-11.0)
[2024-05-20 06:44] LABS: Hemoglobin 8.4 g/dL (12.0-16.0)
[2024-05-20 08:09] LABS: Alanine Aminotransferase 10 U/L (10-49); Albumin, Serum 3.2 gm/dL (3.5-5.0); Albumin/Globulin Ratio 1.1 (1.2-2.2); Alkaline Phosphatase 178 U/L (46-116); Anion Gap 10 (7-16); Aspartate Amino Transferase 18 U/L (0-34); BUN/Creatinine Ratio 6 Ratio (12-20); Blood Urea Nitrogen 22 mg/dL (9-23); Calcium 7.9 mg/dL (8.3-10.6); Calcium (Corrected) 8.5 mg/dL (8.5-10.1); Carbon Dioxide 27.5 mMol/L (20.0-31.0); Chloride 95 mMol/L (98-107); Estimated Creatinine Clearance 16.5 mL/min (>60); Glucose 152 mg/dL (74-106); Magnesium 2.1 mg/dL (1.6-2.6); Osmolality,Calculated 270 (275-295); Phosphorous 3.2 mg/dL (2.4-5.1); Sodium 132 mMol/L (136-145); Total Protein 6.2 gm/dL (5.7-8.2); eGFR 13 See Note
[2024-05-20 08:21] LABS: Vancomycin,Random 12.6 mcg/mL
[2024-05-20] MEDS: PANTOPRAZOLE INJ 40 MG VIAL IVP (08:24)
[2024-05-20] MEDS: ASPIRIN EC 81 MG TABEC PO (08:24)
[2024-05-20] MEDS: INSULIN LISPRO (AdmeLOG) 1 UNIT/0.01 ML UNIT SC ×4 (08:24→21:22)
[2024-05-20] MEDS: INSULIN GLARGINE (Lantus) 5 UNIT/0.05 ML (PER 5 UNITS) 12 UNIT SC (08:24)
--- NOTE | 2024-05-20 10:40 | PC.SS ---
Jo Bajwa is a 44-year-old female admitted to Med-Surg for Acute Encephalopathy. SS conducted bedside contact with the patient to complete initial assessment and to discuss discharge planning. Patient confirmed demographic information. Patient identifies her son Gabi Bajwa [phone] as her surrogate decision maker. Patient resides at home with her sister. Pt states she is able to complete all ADL?s independently, pt is wheelchair bound. Pts PCP is Dr. Khadijah Veronica, magazine designer is Dr. Livingston (M,W,Fri) and her pharmacy of choice is [facility]. DC options discussed pt wishes to return home. Pts fam will provide transportation upon DC. No further intervention required at this time, manager social would be available to address any further concerns. DC Plan: Home Contact: Gabi Bajwa [phone] PCP: [facility]/ [facility]
[2024-05-20] MEDS: POTASSIUM CHLORIDE 20 mEq TABCR 40 MEQ PO (10:50)
[2024-05-20] MEDS: VANCOMYCIN/NS 500 MG IVPB 100 ML 120 MG IV (12:32)
--- NOTE | 2024-05-20 12:38 | PC.SS ---
Rounding: Pending ECHO, on IV ABX
--- NOTE | 2024-05-20 16:58 | ESCONSULT_ITS ---
History of Present Illness Data of Consult Requesting Physician: Nataliya Leone DO Primary Care Provider: Khadijah Veronica PA-C Consult Narrative History of present illness: 44-year-old female with a past medical history significant for asthma, chronic CVA, essential hypertension, insulin-dependent diabetes mellitus type 2 [6.8], diabetic neuropathy, normocytic anemia, end-stage renal disease on hemodialysis via [facility] M/W/F presenting today with a chief complaint of generalized weakness, abdominal pain and vomiting. Nephrology is consulted to arrange HD cc:: cc: Nataliya Leone DO Review of Systems Review of Systems Systems Reviewed: All systems reviewed, normal except as documented Meds Home Medications and Allergies Home Medications ?Medication ?Instructions ?Recorded ?Confirmed ?Type insulin glargine 100 unit/mL (3 38 unit subcut QDAY 04/01/24 05/18/24 History mL) subcutaneous pen (Basaglar KwikPen U-100 Insulin) insulin regular human 100 unit/mL See Protocol subcut TID 04/01/24 05/18/24 History injection solution (Novolin R Regular U-100 Insulin) lorazepam 0.5 mg tablet 0.5 mg PO HS 04/01/24 05/18/24 History amlodipine 5 mg tablet 5 mg PO DAILY 05/18/24 05/18/24 History Allergies Allergy/AdvReac Type Severity Reaction Status Date / Time amoxicillin [From Augmentin] Allergy Severe Swelling Verified 11/02/23 20:23 of Lip/Tongue/Throat clavulanic acid Allergy Severe Swelling Verified 11/02/23 20:23 [From Augmentin] of Lip/Tongue/Throat Exam Vital Signs Temp Pulse Resp BP Pulse Ox O2 Del Method O2 Flow Rate 96.8 F 83 18 107/78 96 Nasal Cannula 1 05/20/24 11:30 05/20/24 15:03 05/20/24 07:40 05/20/24 11:30 05/20/24 11:30 05/20/24 11:30 05/20/24 11:30 Narrative Exam Heart s1, s2 chest CTA kayla ext no edema Results Labs 05/24/24 05:05 05/24/24 05:05 Labs: Short CBC 05/20/24 Range/Units 04:30 WBC 16.6 H D (3.6-11.0) Thou/mm3 Hgb 8.4 L (12.0-16.0) g/dL Hct 25.9 L (36.0-46.0) % Plt Count 261 (140-440) Thou/mm3 BMP 05/20/24 04:30 Sodium 132 L Potassium 3.0 L Chloride 95 L Carbon Dioxide 27.5 BUN 22 Creatinine 4.0 H D Glucose 152 H Calcium 7.9 L Liver Function 05/20/24 Range/Units 04:30 Total Bilirubin 1.0 (0.3-1.2) mg/dL AST 18 (0-34) U/L ALT 10 (10-49) U/L Alkaline Phosphatase 178 H D (46-116) U/L Albumin 3.2 L (3.5-5.0) gm/dL Assessment & Plan Assessment and plan (1) ESRD (end stage renal disease): Status: Acute Assessment and plan: Will arrange HD replete K prn Will need line holiday for bactremia (2) Hypokalemia: Status: Acute (3) Bacteremia: Status: Acute
--- NOTE | 2024-05-20 17:26 | PD.RESPRO ---
Documentation for date of: 05/20/24 Senior resident attestation: Patient evaluated and examined at the bedside, plan of care discussed with rest of the team including my attending physician, except as noted. Patient is evaluated the bedside, mental status is at baseline, A and O x 3, patient denied IV drug abuse, CODE STATUS was confirmed, patient reported she will be DNR/DNI, hemodialysis scheduled for today. Source of sepsis continues to be obscure, blood cultures positive for GPC, started on IV antibiotics, will get echocardiogram and repeat cultures in the a.m. Per Dr livingston, pt is to get HD on Friday and pt can have line holiday after that, if cultures negative, new line can be placed prior to next HD by friday. Pending ID recommendations. Quresh PGY2 Subjective Subjective Interval history: 05/20: No acute overnight events patient seen and examined at bedside this morning patient is appearing much better today she is more alert awake and is able to hold a conversation. Patient states that she was able to tolerate the full liquid diet however she is still mildly nauseous but no vomiting. Patient is GPC positive therefore plans to do dialysis tomorrow and then remove the catheter. Patient states complete resolution of her back pain, she denies any numbness tingling or weakness in her lower extremity. Patient denies any chest pain or abdominal pain patient has no other complaints. Exam Vital Signs Temp Pulse Resp BP Pulse Ox O2 Del Method O2 Flow Rate 96.8 F 83 18 107/78 96 Nasal Cannula 1 05/20/24 11:30 05/20/24 15:03 05/20/24 07:40 05/20/24 11:30 05/20/24 11:30 05/20/24 11:30 05/20/24 11:30 Narrative Exam GENERAL: A&Ox3 . Awake, Not in acute distress NEURO: no focal neurological deficits HEENT: Atraumatic, Normocephalic. mucous membranes moist. Eyes open, Legally blind right eye, RIJ catheter site clean HEART: Normal Heart Sounds LUNGS: Clear to auscultation with no wheezing or crackles. ABDOMEN: soft, non-distended, no tenderness, no guarding or rebound tenderness SKIN: No Rash or ecchymoses EXTREMITIES: No edema, tenderness, left above-knee amputation of lower extremity, pedal pulses palpated Objective Labs 05/21/24 05:14 05/21/24 05:14 Labs: Laboratory Results - last 24 hr 05/20/24 04:30 WBC 16.6 H D RBC 2.98 L Hgb 8.4 L Hct 25.9 L MCV 87 MCH 28.2 MCHC 32.4 RDW Std Deviation 47.9 H Plt Count 261 Neut % (Auto) 82 H Lymph % (Auto) 10 [place] % (Auto) 7 Eos % (Auto) 0 Baso % (Auto) 0 Neut # (Auto) 13.6 H Lymph # (Auto) 1.7 [place] # (Auto) 1.1 H Eos # (Auto) 0.0 Baso # (Auto) 0.1 Immature Gran # (Auto) 0.16 H Absolute Nucleated RBC 0.03 H Immature Gran % 1 H Nucleated RBC % 0 Sodium 132 L Potassium 3.0 L Chloride 95 L Carbon Dioxide 27.5 Anion Gap 10 BUN 22 Creatinine 4.0 H D Estim Creat Clear Calc 16.5 L eGFR 13 L* BUN/Creatinine Ratio 6 L Glucose 152 H Calculated Osmolality 270 L Calcium 7.9 L Corrected Calcium 8.5 Phosphorus 3.2 Magnesium 2.1 Total Bilirubin 1.0 AST 18 ALT 10 Alkaline Phosphatase 178 H D Total Protein 6.2 Albumin 3.2 L Globulin 3.0 Albumin/Globulin Ratio 1.1 L Random Vancomycin 12.6 Quality Measures Quality Measures sepsis Current suspected stage: ruled out Possible source: unknown Blood cultures ordered: completed in ED Antibiotic ordered: Yes Assessment & Plan Assessment Current Active Medications: Generic Name Dose Route Start Last Admin Trade Name Freq PRN Reason Stop Dose Admin Acetaminophen 650 mg 05/18/24 20:01 Acetaminophen Supp 650 Mg Supp MI 06/17/24 20:00 Q6HR PRN Pain Or Fever > 100.3 Aspirin 81 mg 05/19/24 11:00 05/20/24 08:24 Aspirin Ec 81 Mg Tabec PO 06/18/24 10:59 81 mg QDAY NASREEN Administration Atorvastatin Calcium 40 mg 05/19/24 21:00 05/19/24 20:05 Atorvastatin Calcium 20 Mg Tablet PO 06/18/24 20:59 40 mg HS NASREEN Administration Dextrose 25 ml 05/18/24 18:24 Dextrose 50%-Water Inj 50 Ml Syringe IV 06/17/24 18:23 Q15MIN PRN BG 50-70 responsive npo pt Dextrose 50 ml 05/18/24 18:24 Dextrose 50%-Water Inj 50 Ml Syringe IV 06/17/24 18:23 Q15MIN PRN BG <50 OR BG <70 & pt unresponsive Glucagon 1 mg 05/18/24 18:24 Glucagon Inj 1 Mg Vial IM Q15MIN PRN BG <70, and no IV access Heparin Sodium (Porcine) 5,000 unit 05/18/24 22:00 05/20/24 14:58 Heparin Sod Inj 5000 Unit/Ml Vial SC 06/01/24 21:59 5,000 unit Q8HR NASREEN Administration Heparin Sodium (Porcine) 3,500 unit 05/19/24 16:00 05/19/24 17:06 Heparin Sod Inj 1000 Unit/Ml Vial 10 Ml INDWELLCAT 06/02/24 15:59 3,500 unit X1 PRN Administration DIALYSIS Albumin Human 25 gm in 100 mls @ 100 mls/min 05/19/24 07:33 Albuminar-25 Ivpb IV PRN PRN DIALYSIS Promethazine HCl 12.5 mg/ 50.5 mls @ 2.5 mls/min 05/19/24 13:51 Sodium Chloride IV 06/18/24 13:50 Q6HR PRN NAUSEA OR VOMITING Insulin Glargine 12 unit 05/18/24 18:45 05/20/24 08:24 Insulin Glargine (Lantus) 5 Unit/0.05 Ml (Per 5 Units) SC 06/17/24 18:44 12 unit QDAY NASREEN Administration Insulin Human Lispro 0 unit 05/19/24 11:30 05/20/24 12:32 Insulin Lispro (Admelog) 1 Unit/0.01 Ml Unit SC 06/18/24 11:29 1 unit ACHS NASREEN Administration Protocol Ondansetron HCl 4 mg 05/18/24 18:19 05/20/24 08:30 Ondansetron Inj 2 Mg/Ml Inj 2 Ml IV 06/17/24 18:18 4 mg Q6H PRN Administration NAUSEA OR VOMITING Protocol Pantoprazole Sodium 40 mg 05/18/24 18:30 05/20/24 08:24 Pantoprazole Inj 40 Mg Vial IVP 06/17/24 18:29 40 mg QDAY NASREEN Administration Pharmacy Consult 1 each 05/18/24 18:41 Pharmacy Renal Dose Adjustment 1 Ea XX 06/17/24 18:40 PRN PRN CONSULT Pharmacy Consult 1 each 05/19/24 09:45 Vancomycin Pharmacy To Dose 1 Each Each IV 06/18/24 09:44 QDAY PRN CONSULT Plan Patient is a 44-year-old female with a past medical history significant for asthma, chronic CVA, essential hypertension, insulin-dependent diabetes mellitus type 2 [6.8], diabetic neuropathy, normocytic anemia, end-stage renal disease on hemodialysis via RIJ PermCath M/W/F presenting today with a chief complaint of generalized weakness, abdominal pain and vomiting. Patient will be admitted for workup and management of sepsis secondary to possible line sepsis. #Sepsis secondary to likely infected RIJ PermCath # GPC bacteremia Patient presented with generalized weakness, abdominal pain and bilious vomiting. On exam patient has generalized abdominal tenderness. DDx: Infected RIJ PermCath, chronic right great toe osteomyelitis, UTI, pelvic abscess SIRS 4/4. HR 108, RR 22, temp 100.6, WBC 25.[address]-[place] brain was negative for acute hemorrhage, mass effect or midline shift. 2 l artery calcification, hypodense right adnexal structure, 4.7 cm. patient recently completed a 6-week course of antibiotics on 05/13/2024 for right great toe osteomyelitis with doxycycline 100 Mg p.o. twice daily and Keflex during dialysis sessions. On all previous admissions patient also has chronic leukocytosis with WBC always elevated in the 20s. 2 out of 2 blood cultures grew GPC Plan: ? N.p.o. as Pt is nauseas and unable to tolerate oral diet ? Ordered blood and urine cultures ? To consider removal of RIJ catheter as likely possible source of infection ? Levofloxacin 250 Mg IV every 48 hourly [renally dosed] started on 05/19? ? Vancomycin IV, pharmacy to dose -Zofran and promethazine as needed for nausea and vomiting -Repeat blood cultures ordered -Will remove dialysis cath tomorrow after dialysis #ESRD on hemodialysis via right RIJ PermCath M/W/F Patient follows up with workers compensation claims examiner Dr. Livingston Patient missed hemodialysis session last Friday and only was able to tolerate 30 minutes hemodialysis on Friday due to developing generalized abdominal pain. Plan: ? Pt underwent hemodialysis today (05/19) -Patient's hemodialysis schedule is Friday ? Renally dose medication ? Avoid nephrotoxic agents ? Business Continuity Manager, Dr. Livingston consulted and is closely following the case. Appreciate recommendations. #Right adnexal mass for investigation Abdomen/pelvis CT significant for perinephric stranding, renal artery calcification, hypodense right adnexal structure, 4.7 cm. Pelvic ultrasound- No intrauterine gestation or solid uterine mass, Right ovarian simple cyst 4.8 x 3.2 x 4.1 cm Plan: -Follow-up outpatient with PCP #Chronic right great toe osteomyelitis #AKA of left lower extremity #Diabetic neuropathy Of note patient recently completed a 6-week course of antibiotics on 05/13/2024 for right great toe osteomyelitis with doxycycline 100 Mg p.o. twice daily and Keflex during dialysis sessions. Foot Xray on 04/03 shows- Cortical bone destruction at the first metatarsophalangeal join, Mild erosions distal third metatarsal -repeat right foot xray #Chronic CVA On admission CT brain was negative for acute hemorrhage, mass effect or midline shift. Still showed old small right caudate infarcts and left basal ganglia infarct Insulin-dependent diabetes mellitus type 2 [6.8] Home medication insulin glargine 38 units SC at bedtime Plan: ? Insulin lispro sliding scale #Essential hypertension On admission BP 157/77 Home medication nifedipine 30 Mg p.o. daily Plan: ? 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 Ophthalmology follow-up as outpatient #Chronic normocytic anemia On admission Hb 9.2 DDx: RUTH ANN, blood loss anemia, anemia of chronic disease, thalassemia, lead poisoning. Iron panel significant for FE 12, TIBC 207, ferritin 219. Mixed picture of iron deficiency and anemia of chronic disease. Patient received IV iron [04/04 -04/12/2024] 1 unit PRBC 04/05 Plan: - Suggest Epogen during Dialysis sessions. #Intractable nausea and vomiting, resolved - may be secondary to gastroparesis versus uremia - advance diet as tolerated - zofran prn Health maintenance: Disposition: IV antibiotics, Nephro consult Diet: NPO Lines: pIVs GI Prophylaxis: Pantoprazole Thrombo Prophylaxis: Heparin Code status: DNR/DNI Assessment and plan discussed with my senior resident Dr. Shaikh & attending physician Dr. Vasu Daniel (PGY-1)- Internal medicine resident Attending Provider Attestation/Addendum I, Nataliya Leone, , attest that I was physically present for the lindsay portions of the service and evaluated the patient with the resident and I reviewed and discussed the case with the resident and agree with the resident's findings and plans of care as documented above Patient seen and evaluated this AM. She states that she is feeling well. Cultures remain positive for GPC. Patient will need line holiday. However, per dialysis nurse, permacath was not functioning this morning requiring cathflo. This may delay the removal of permacath as patient will need HD prior to removal of catheter, but IR services may not be available. Will continue with vancomycin at this time
[2024-05-20] MEDS: ATORVASTATIN CALCIUM 20 MG TABLET 40 MG PO (21:22)
[2024-05-20] MEDS: LORazepam 0.5 MG TABLET PO (23:11)
[2024-05-20] MEDS: CYCLObenzaPRINE 5 MG TABLET 10 MG PO (23:11)
[2024-05-21] VITALS (23 sets, daily range): BP systolic 90–175; BP diastolic 59–91; PULSE 78–114; RESP 15–18; TEMP 36.3–37.8; O2SAT 93–100
[2024-05-21] MEDS: HEPARIN SOD INJ 5000 UNIT/ML VIAL SC ×3 (05:17→23:18)
[2024-05-21 06:00] LABS: Basophils # (Auto) 0.1 Thou/mm3 (0.0-0.2); Basophils % (Auto) 0 % (0-2.5); Eosinophils # (Auto) 0.1 Thou/mm3 (0.0-0.5); Eosinophils % (Auto) 1 % (0-10); Hematocrit 25.2 % (36.0-46.0); Immature Granulocytes % (Auto) 1 % (0-0); Immature Granulocytes Auto 0.16 Thou/mm3 (0.00-0.00); Lymphocytes # (Auto) 2.4 Thou/mm3 (1.0-4.8); Lymphocytes % (Auto) 17 % (10-50); Mean Corpuscular HGB Conc 32.9 g/dl (31.0-37.0); Mean Corpuscular Hemoglobin 28.4 pg (25.0-35.0); Mean Corpuscular Volume 86 fL (80-100); Monocytes # (Auto) 1.4 Thou/mm3 (0.0-0.8); Monocytes % (Auto) 9 % (0-12); Neutrophils # (Auto) 10.6 Thou/mm3 (1.8-7.7); Neutrophils % (Auto) 72 % (37-80); Nucleated Red Blood Cell # 0.03 Thou/mm3 (0.00-0.00); Nucleated Red Blood Cell % 0 /100 WBC (0); Platelet Count 267 Thou/mm3 (140-440); RDW Standard Deviation 47.4 fL (36.4-46.3); Red Blood Count 2.92 Miln/mm3 (4.00-5.20); White Blood Count 14.7 Thou/mm3 (3.6-11.0)
[2024-05-21 06:01] LABS: Hemoglobin 8.3 g/dL (12.0-16.0)
[2024-05-21 06:37] LABS: Alanine Aminotransferase 10 U/L (10-49); Albumin, Serum 3.2 gm/dL (3.5-5.0); Albumin/Globulin Ratio 1.1 (1.2-2.2); Alkaline Phosphatase 211 U/L (46-116); Anion Gap 9 (7-16); Aspartate Amino Transferase 17 U/L (0-34); BUN/Creatinine Ratio 6 Ratio (12-20); Bilirubin,Total 0.7 mg/dL (0.3-1.2); Blood Urea Nitrogen 28 mg/dL (9-23); Calcium 7.7 mg/dL (8.3-10.6); Calcium (Corrected) 8.3 mg/dL (8.5-10.1); Carbon Dioxide 25.5 mMol/L (20.0-31.0); Chloride 98 mMol/L (98-107); Creatinine (Component) 4.6 mg/dL (0.6-1.3); Estimated Creatinine Clearance 14.4 mL/min (>60); Glucose 208 mg/dL (74-106); Magnesium 2.1 mg/dL (1.6-2.6); Osmolality,Calculated 276 (275-295); Phosphorous 2.7 mg/dL (2.4-5.1); Potassium 3.6 mMol/L (3.4-5.1); Sodium 132 mMol/L (136-145); Total Protein 6.2 gm/dL (5.7-8.2); eGFR 11 See Note
[2024-05-21] MEDS: INSULIN LISPRO (AdmeLOG) 1 UNIT/0.01 ML UNIT SC ×4 (07:51→23:16)
--- NOTE | 2024-05-21 08:00 | XR_ITS ---
Examination: AP lateral foot 2 views TECHNIQUE: AP lateral portable supine right 2 views Exam date and time: May 21, 2024 0818 hours INDICATIONS: Sepsis nonhealing wound medial distal right foot FINDINGS: Chronic erosions distal first metatarsal and base proximal phalanx first digit Amputation at the level of the second metatarsal Soft tissue swelling about the first digit IMPRESSION: Osteomyelitis distal first metatarsal and base proximal phalanx first digit, consider MRI foot without contrast follow-up
--- NOTE | 2024-05-21 08:34 | ESPR_ITS ---
Subjective Subjective Interval history: problems noted. dm, pvd Exam Vital Signs Temp Pulse Resp BP Pulse Ox O2 Del Method O2 Flow Rate 98.9 F 92 18 157/91 H 99 Nasal Cannula 1 05/21/24 08:21 05/21/24 08:21 05/21/24 08:21 05/21/24 08:21 05/21/24 08:21 05/21/24 08:00 05/21/24 08:21 Narrative Exam blind in rt eye from detatched retina. prior L aka noted. rt foot sore healing. on room air. rt chest tdc site ok Objective - Internal Medicine Labs 05/21/24 05:14 05/21/24 05:14 Labs: Laboratory Results - last 24 hr 05/21/24 05:14 WBC 14.7 H RBC 2.92 L Hgb 8.3 L Hct 25.2 L MCV 86 MCH 28.4 MCHC 32.9 RDW Std Deviation 47.4 H Plt Count 267 Neut % (Auto) 72 Lymph % (Auto) 17 [place] % (Auto) 9 Eos % (Auto) 1 Baso % (Auto) 0 Neut # (Auto) 10.6 H Lymph # (Auto) 2.4 [place] # (Auto) 1.4 H Eos # (Auto) 0.1 Baso # (Auto) 0.1 Immature Gran # (Auto) 0.16 H Absolute Nucleated RBC 0.03 H Immature Gran % 1 H Nucleated RBC % 0 Sodium 132 L Potassium 3.6 D Chloride 98 Carbon Dioxide 25.5 Anion Gap 9 BUN 28 H Creatinine 4.6 H* D Estim Creat Clear Calc 14.4 L eGFR 11 L* BUN/Creatinine Ratio 6 L Glucose 208 H D Calculated Osmolality 276 Calcium 7.7 L Corrected Calcium 8.3 L Phosphorus 2.7 Magnesium 2.1 Total Bilirubin 0.7 AST 17 ALT 10 Alkaline Phosphatase 211 H D Total Protein 6.2 Albumin 3.2 L Globulin 3.0 Albumin/Globulin Ratio 1.1 L Random Vancomycin 18.0 Assessment & Plan A&P Narrative dm II blindness ckd 5 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 htn with persistent pos bc, ok for line removal if bc with staph aureus , then wait for replacement of line for neg bc if possible if coag neg. ok to treat thru as long as bc clear with rx. will get more bc in am. if staph aureus, then get echo too. will look in again on friday Time Spent With Patient Time: Total time spent is greater than 50% in coordination of care (as documented) at patient's floor/unit and/or counseling patient:
[2024-05-21] MEDS: CATHFLO (ALTEPLASE) INJ 4 MG, Sterile Water 4.4 ML INDWELLCAT ×2 (09:22→10:20)
--- NOTE | 2024-05-21 09:36 | PC.NURSE ---
Addendum entered by Katie Benavidez RN 05/21/24 09:51: ON ATTEMPT TO RESUME TX ARTERIAL PORT STILL W/ PRESSURE TO ELEVATED TO RUN TX, MD HUDSON NOTIFED W/ ORDER TO CATH FLOW BOTH PORTS AGAIN AND LET MED DWELL FOR AT LEAST 2HRS, WILL CARRY OUT ORDER AND CONT. TO MONITOR Addendum entered by Katie Benavidez RN 05/21/24 09:39: WILL ATTEMPT TO RESUME TX POST DWELL TIME. Original Note: ON CATH ASSESSMENT VENOUS PORT UNABLE TO ASPIRATE BUT CAN ADMIN FLUID IN, ON ARTERIAL PORT SLUGISH TTO ASPIRATION, ON ATTEMPT TO START TX AP INCREASED AND AND COULD NOT BE DECREASED DESPITE ALL INTERVENTION, CATH FLOWED(ALTEPLASE) BOTH PORTS PER ORDERS.
--- NOTE | 2024-05-21 10:01 | PC.SS ---
Follow up note: Pt is wheelchair bound and will return home upon dc. Remove dialysis line and replaced on Friday.
--- NOTE | 2024-05-21 10:49 | ESCONSULT_ITS ---
RE: ELVIA FLORES : 1980 DATE OF CONSULTATION: 05/21/2024 REASON FOR EVALUATION: Bacteremia. HISTORY OF PRESENT ILLNESS: The patient is an unfortunate woman with positive blood cultures. There are GPCs. She is not ill-appearing, so she may have already responded to rx. her pmh is significant for dm. ckd5, and rt eye blindness due to detatched retina and psh for prior L aka and hd access, current line in 4-5 mo now . If it is Staph aureus the line should be removed. if not, then we can retain the line most likely. I will check on her again Friday.await repeat bc, get an echo if staph aureus (if not done already) DT: 09:47:34 TT: 10:22:00 Ref: [id number] - TID: [id number] MTDD
[2024-05-21] MEDS: INSULIN GLARGINE (Lantus) 5 UNIT/0.05 ML (PER 5 UNITS) 12 UNIT SC (11:36)
[2024-05-21] MEDS: PANTOPRAZOLE INJ 40 MG VIAL IVP (11:36)
[2024-05-21] MEDS: ASPIRIN EC 81 MG TABEC PO (11:57)
--- NOTE | 2024-05-21 12:50 | PC.NURSE ---
Dialysis cath not working properly altaplase was administered by dialysis nurse. Dialysis will resume in a few hours if able to access dialysis port. Will continue to monitor patient.
[2024-05-21] MEDS: cefTRIAXone/D5w 1gm IV premix 50 ML IV (15:51)
[2024-05-21] MEDS: NIFEdipine XL 30 MG TABCR PO ×2 (16:08→23:22)
--- NOTE | 2024-05-21 16:11 | PC.NURSE ---
NOTIFIED DR. HILLMAN PATIENTS SISTER IS AT BED SIDE AND HAS MANY QUESTIONS. SISTER WANTS TO TAKE PATIENT OUT OF HERE AND TAKE HER TO [facility]. I STARTED COOLING MEASURES FOR A LOW GRADE FEVER AND ADMINISTERED BLOOD PRESSURE MEDICATION, STARTED IV ANTIBIOTIC.
--- NOTE | 2024-05-21 17:31 | PC.NURSE ---
NOTIFIED DR. SANTILLAN PATIENTS SISTER IS AT BED SIDE AND HAS MANY QUESTIONS ABOUT PATIENT. SHE WILL COME TALK TO SISTER. WILL CONTINUE TO MONITOR PATIENT.
--- NOTE | 2024-05-21 18:31 | PC.NURSE ---
PATIENTS WANT TO BE LEFT ALONE, SCREAMING AND CRYING. MALU SURE IN PLACE FOR SAFETY
--- NOTE | 2024-05-21 19:02 | PD.RESPRO ---
Documentation for date of: 05/21/24 Senior resident attestation: Patient evaluated and examined at the bedside, plan of care discussed with rest of the team including my attending physician, except as noted. Patient is evaluated the bedside, mental status is at baseline, A and O x 3, patient denied IV drug abuse, CODE STATUS was confirmed, patient reported she will be DNR/DNI, hemodialysis scheduled for today. Source of sepsis continues to be obscure, blood cultures positive for GPC, started on IV antibiotics, will get echocardiogram and repeat cultures in the a.m. Per Dr livingston, pt is to get HD on Friday and pt can have line holiday after that, if cultures negative, new line can be placed prior to next HD by friday. ID recommended removing dialysis cath, Cultures grew Entercoccus in urine and Staph A in blood, repeat cultures prelim + for GPC, pending repeat cultures 05/22/24 , currently on Vancomycin and ceftriaxone. Quresh PGY2 Subjective Subjective Interval history: 05/21: Overnight team reported patient was unable to sleep therefore they gave 0.5 mg of lorazepam. Patient is seen and examined this morning patient is awake and alert and states that she is able to tolerate food and ate all of her breakfast patient denies any nausea abdominal pain or back pain. Patient will undergo dialysis today. Patient is seen later in the afternoon in dialysis patient's dialysis cath appears to be clogged and dialysis is stopped midway, will attempt to unclog the catheter and reattempt the dialysis at later afternoon. Patient denies any shortness of breath she just appears to be more fatigued. Patient's urine cultures grew Enterococcus faecalis and blood cultures grew Staph aureus. Patient will continue vancomycin and started on ceftriaxone. Exam Vital Signs Temp Pulse Resp BP Pulse Ox O2 Del Method O2 Flow Rate 99.1 F 99 16 168/85 H 97 Nasal Cannula 1 05/21/24 16:00 05/21/24 16:08 05/21/24 16:00 05/21/24 16:08 05/21/24 16:00 05/21/24 16:00 05/21/24 16:00 Narrative Exam GENERAL: A&Ox3 . Awake, Not in acute distress NEURO: no focal neurological deficits HEENT: Atraumatic, Normocephalic. mucous membranes moist. Eyes open, Legally blind right eye, RIJ catheter site clean HEART: Normal Heart Sounds LUNGS: Clear to auscultation with no wheezing or crackles. ABDOMEN: soft, non-distended, no tenderness, no guarding or rebound tenderness SKIN: No Rash or ecchymoses EXTREMITIES: No edema, tenderness, left above-knee amputation of lower extremity, pedal pulses palpated Objective Labs 05/21/24 05:14 05/21/24 05:14 Labs: Laboratory Results - last 24 hr 05/18/24 05/21/24 11:40 05:14 WBC 14.7 H RBC 2.92 L Hgb 8.3 L Hct 25.2 L MCV 86 MCH 28.4 MCHC 32.9 RDW Std Deviation 47.4 H Plt Count 267 Neut % (Auto) 72 Lymph % (Auto) 17 [place] % (Auto) 9 Eos % (Auto) 1 Baso % (Auto) 0 Neut # (Auto) 10.6 H Lymph # (Auto) 2.4 Donley # (Auto) 1.4 H Eos # (Auto) 0.1 Baso # (Auto) 0.1 Immature Gran # (Auto) 0.16 H Absolute Nucleated RBC 0.03 H Immature Gran % 1 H Nucleated RBC % 0 Sodium 129 L 132 L Potassium 2.9 L 3.6 D Chloride 95 L 98 Carbon Dioxide 22.8 25.5 Anion Gap 11 9 BUN 25 H 28 H Creatinine 5.2 H* 4.6 H* D Estim Creat Clear Calc 14.4 L eGFR 10 L* 11 L* BUN/Creatinine Ratio 5 L 6 L Glucose 274 H 208 H D Calculated Osmolality 273 L 276 Calcium 7.5 L 7.7 L Corrected Calcium 7.9 L 8.3 L Phosphorus 2.9 2.7 Magnesium 1.2 L 2.1 Total Bilirubin 1.3 H 0.7 AST 36 H 17 ALT 15 10 Alkaline Phosphatase 145 H 211 H D Troponin I 0.034 Total Protein 6.6 6.2 Albumin 3.5 3.2 L Globulin 3.1 3.0 Albumin/Globulin Ratio 1.1 L 1.1 L Lipase 22 Procalcitonin 30.93 H Random Vancomycin 18.0 Ethyl Alcohol < 10.0 Quality Measures Quality Measures sepsis Current suspected stage: sepsis Possible source: unknown Blood cultures ordered: completed in ED Antibiotic ordered: Yes Assessment & Plan Assessment Current Active Medications: Generic Name Dose Route Start Last Admin Trade Name Freq PRN Reason Stop Dose Admin Acetaminophen 650 mg 05/18/24 20:01 Acetaminophen Supp 650 Mg Supp MT 06/17/24 20:00 Q6HR PRN Pain Or Fever > 100.3 Aspirin 81 mg 05/19/24 11:00 05/21/24 11:57 Aspirin Ec 81 Mg Tabec PO 06/18/24 10:59 81 mg QDAY NASREEN Administration Atorvastatin Calcium 40 mg 05/19/24 21:00 05/20/24 21:22 Atorvastatin Calcium 20 Mg Tablet PO 06/18/24 20:59 40 mg HS NASREEN Administration Cyclobenzaprine HCl 10 mg 05/20/24 23:00 05/20/24 23:11 Cyclobenzaprine 5 Mg Tablet PO 06/20/24 20:59 10 mg HS PRN Administration muscle spasms Dextrose 25 ml 05/18/24 18:24 Dextrose 50%-Water Inj 50 Ml Syringe IV 06/17/24 18:23 Q15MIN PRN BG 50-70 responsive npo pt Dextrose 50 ml 05/18/24 18:24 Dextrose 50%-Water Inj 50 Ml Syringe IV 06/17/24 18:23 Q15MIN PRN BG <50 OR BG <70 & pt unresponsive Glucagon 1 mg 05/18/24 18:24 Glucagon Inj 1 Mg Vial IM Q15MIN PRN BG <70, and no IV access Heparin Sodium (Porcine) 5,000 unit 05/18/24 22:00 05/21/24 14:25 Heparin Sod Inj 5000 Unit/Ml Vial SC 06/01/24 21:59 5,000 unit Q8HR NASREEN Administration Heparin Sodium (Porcine) 3,500 unit 05/19/24 16:00 05/19/24 17:06 Heparin Sod Inj 1000 Unit/Ml Vial 10 Ml INDWELLCAT 06/02/24 15:59 3,500 unit X1 PRN Administration DIALYSIS Albumin Human 25 gm in 100 mls @ 100 mls/min 05/19/24 07:33 Albuminar-25 Ivpb IV PRN PRN DIALYSIS Promethazine HCl 12.5 mg/ 50.5 mls @ 2.5 mls/min 05/19/24 13:51 Sodium Chloride IV 06/18/24 13:50 Q6HR PRN NAUSEA OR VOMITING Ceftriaxone Sodium/Dextrose 50 mls @ 100 mls/hr 05/21/24 14:51 05/21/24 15:51 Rocephin/D5w 1gm Iv Premix IV 05/28/24 14:50 100 mls/hr QDAY NASREEN Administration Insulin Glargine 12 unit 05/18/24 18:45 05/21/24 11:36 Insulin Glargine (Lantus) 5 Unit/0.05 Ml (Per 5 Units) SC 06/17/24 18:44 12 unit QDAY NASREEN Administration Insulin Human Lispro 0 unit 05/19/24 11:30 05/21/24 17:25 Insulin Lispro (Admelog) 1 Unit/0.01 Ml Unit SC 06/18/24 11:29 1 unit ACHS NASREEN Administration Protocol Nifedipine 30 mg 05/21/24 16:00 05/21/24 16:08 Nifedipine Xl 30 Mg Tabcr PO 06/20/24 15:59 30 mg TID NASREEN Administration Ondansetron HCl 4 mg 05/18/24 18:19 05/20/24 08:30 Ondansetron Inj 2 Mg/Ml Inj 2 Ml IV 06/17/24 18:18 4 mg Q6H PRN Administration NAUSEA OR VOMITING Protocol Pantoprazole Sodium 40 mg 05/18/24 18:30 05/21/24 11:36 Pantoprazole Inj 40 Mg Vial IVP 06/17/24 18:29 40 mg QDAY NASREEN Administration Pharmacy Consult 1 each 05/18/24 18:41 Pharmacy Renal Dose Adjustment 1 Ea XX 06/17/24 18:40 PRN PRN CONSULT Pharmacy Consult 1 each 05/19/24 09:45 Vancomycin Pharmacy To Dose 1 Each Each IV 06/18/24 09:44 QDAY PRN CONSULT Plan Patient is a 44-year-old female with a past medical history significant for asthma, chronic CVA, essential hypertension, insulin-dependent diabetes mellitus type 2 [6.8], diabetic neuropathy, normocytic anemia, end-stage renal disease on hemodialysis via RIJ PermCath M// presenting today with a chief complaint of generalized weakness, abdominal pain and vomiting. Patient will be admitted for workup and management of sepsis secondary to possible line sepsis. #Sepsis secondary to likely infected RIJ PermCath # GPC bacteremia -Blood cultures 05/18 grew Staph aureus Patient presented with generalized weakness, abdominal pain and bilious vomiting. on admission SIRS 4/4. HR 108, RR 22, temp 100.6, WBC 25.7 Pro-Walt 30.93 patient recently completed a 6-week course of antibiotics on 05/13/2024 for right great toe osteomyelitis with doxycycline 100 Mg p.o. twice daily and Keflex during dialysis sessions. On all previous admissions patient also has chronic leukocytosis with WBC always elevated in the 20s. 2 out of 2 blood cultures grew GPC Plan: ? Continue vancomycin IV, pharmacy to dose -Repeat blood cultures ordered -Will remove dialysis cath when able patient was unable to complete dialysis due to malfunctioning of the PermCath. -Patient is started on ceftriaxone 05/21- #ESRD on hemodialysis via right RIJ PermCath M// Patient follows up with knitter hand Dr. Livingston Patient missed hemodialysis session last Friday and only was able to tolerate 30 minutes hemodialysis on Friday due to developing generalized abdominal pain. Plan: ? Pt underwent hemodialysis today (05/19) -Patient's hemodialysis schedule is Friday ? Renally dose medication ? Avoid nephrotoxic agents ? Interior Design Teacher, Dr. Livingston consulted and is closely following the case. Appreciate recommendations. #Right adnexal mass for investigation Abdomen/pelvis CT significant for perinephric stranding, renal artery calcification, hypodense right adnexal structure, 4.7 cm. Pelvic ultrasound- No intrauterine gestation or solid uterine mass, Right ovarian simple cyst 4.8 x 3.2 x 4.1 cm Plan: -Follow-up outpatient with PCP #Chronic right great toe osteomyelitis #AKA of left lower extremity #Diabetic neuropathy Of note patient recently completed a 6-week course of antibiotics on 05/13/2024 for right great toe osteomyelitis with doxycycline 100 Mg p.o. twice daily and Keflex during dialysis sessions. Foot Xray on 04/03 shows- Cortical bone destruction at the first metatarsophalangeal join, Mild erosions distal third metatarsal -repeat right foot xray #Chronic CVA On admission CT brain was negative for acute hemorrhage, mass effect or midline shift. Still showed old small right caudate infarcts and left basal ganglia infarct Insulin-dependent diabetes mellitus type 2 [6.8] Home medication insulin glargine 38 units SC at bedtime Plan: ? Insulin lispro sliding scale #Essential hypertension On admission BP 157/77 Home medication nifedipine 30 Mg p.o. daily Plan: ? 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 Ophthalmology follow-up as outpatient #Chronic normocytic anemia On admission Hb 9.2 DDx: RUTH ANN, blood loss anemia, anemia of chronic disease, thalassemia, lead poisoning. Iron panel significant for FE 12, TIBC 207, ferritin 219. Mixed picture of iron deficiency and anemia of chronic disease. Patient received IV iron [04/04 -04/12/2024] 1 unit PRBC 04/05 Plan: - Suggest Epogen during Dialysis sessions. #Intractable nausea and vomiting, resolved - may be secondary to gastroparesis versus uremia - advance diet as tolerated - zofran prn Health maintenance: Disposition: IV antibiotics, Nephro consult Diet: NPO Lines: pIVs GI Prophylaxis: Pantoprazole Thrombo Prophylaxis: Heparin Code status: DNR/DNI Assessment and plan discussed with my senior resident Dr. Shaikh & attending physician Dr. Vasu Daniel (PGY-1)- Internal medicine resident Attending Provider Attestation/Addendum Nataliya Flores, , attest that I was physically present for the lindsay portions of the service and evaluated the patient with the resident and I reviewed and discussed the case with the resident and agree with the resident's findings and plans of care as documented above
--- NOTE | 2024-05-21 19:38 | PC.NURSE ---
patient off unit to dialysis via bed.
[2024-05-21] MEDS: CYCLObenzaPRINE 5 MG TABLET 10 MG PO (23:17)
[2024-05-21] MEDS: ATORVASTATIN CALCIUM 20 MG TABLET 40 MG PO (23:17)
[2024-05-21] MEDS: ACETAMINOPHEN 500 MG TABLET 1000 MG PO (23:22)
[2024-05-22] VITALS (11 sets, daily range): BP systolic 92–121; BP diastolic 62–78; PULSE 77–115; RESP 16–19; TEMP 36.1–37.9; O2SAT 93–100; BMI 31.5
--- NOTE | 2024-05-22 00:05 | PC.NURSE ---
patient back to room on hospital bed from dialysis at 2315. Patient's current vitals BP 121/78, HR 114, Temp 100.2, RR 16, O2 94% on 1 L NC, patient also reports 7/10 pain in her back and legs, patient also c/o being cold. Called Dr. Barton regarding patient's concern, has tylenol but suppository, requested PO tylenol as patient can swallow fine.
[2024-05-22] MEDS: HEPARIN SOD INJ 5000 UNIT/ML VIAL SC ×3 (05:38→21:24)
[2024-05-22 06:15] LABS: Glucose Estimated Average 111 mg/dL (80-131); Hemoglobin A1C 5.5 % Hgb (4.8-6.0)
[2024-05-22 06:22] LABS: Vancomycin,Random < 3.0 mcg/mL
[2024-05-22] MEDS: INSULIN GLARGINE (Lantus) 5 UNIT/0.05 ML (PER 5 UNITS) 12 UNIT SC (08:34)
[2024-05-22] MEDS: PANTOPRAZOLE INJ 40 MG VIAL IVP (08:35)
[2024-05-22] MEDS: ASPIRIN EC 81 MG TABEC PO (08:35)
[2024-05-22] MEDS: cefTRIAXone/D5w 1gm IV premix 50 ML IV (08:35)
[2024-05-22] MEDS: INSULIN LISPRO (AdmeLOG) 1 UNIT/0.01 ML UNIT SC ×4 (08:35→21:28)
[2024-05-22 09:04] LABS: Basophils # (Auto) 0.1 Thou/mm3 (0.0-0.2); Basophils % (Auto) 1 % (0-2.5); Eosinophils # (Auto) 0.1 Thou/mm3 (0.0-0.5); Eosinophils % (Auto) 1 % (0-10); Hematocrit 23.4 % (36.0-46.0); Immature Granulocytes % (Auto) 2 % (0-0); Immature Granulocytes Auto 0.37 Thou/mm3 (0.00-0.00); Lymphocytes # (Auto) 3.6 Thou/mm3 (1.0-4.8); Lymphocytes % (Auto) 23 % (10-50); Mean Corpuscular HGB Conc 33.3 g/dl (31.0-37.0); Mean Corpuscular Hemoglobin 28.5 pg (25.0-35.0); Mean Corpuscular Volume 85 fL (80-100); Monocytes # (Auto) 1.8 Thou/mm3 (0.0-0.8); Monocytes % (Auto) 12 % (0-12); Neutrophils # (Auto) 9.5 Thou/mm3 (1.8-7.7); Neutrophils % (Auto) 62 % (37-80); Nucleated Red Blood Cell % 0 /100 WBC (0); Platelet Count 277 Thou/mm3 (140-440); RDW Standard Deviation 45.7 fL (36.4-46.3); Red Blood Count 2.74 Miln/mm3 (4.00-5.20); White Blood Count 15.5 Thou/mm3 (3.6-11.0)
[2024-05-22 09:06] LABS: Hemoglobin 7.8 g/dL (12.0-16.0)
[2024-05-22 09:20] LABS: Anion Gap 5 (7-16); BUN/Creatinine Ratio 6 Ratio (12-20); Blood Urea Nitrogen 18 mg/dL (9-23); Calcium 8.2 mg/dL (8.3-10.6); Carbon Dioxide 29.2 mMol/L (20.0-31.0); Chloride 98 mMol/L (98-107); Creatinine (Component) 3.2 mg/dL (0.6-1.3); Estimated Creatinine Clearance 20.7 mL/min (>60); Glucose 245 mg/dL (74-106); Osmolality,Calculated 274 (275-295); Potassium 3.7 mMol/L (3.4-5.1); Sodium 132 mMol/L (136-145); eGFR 18 See Note
[2024-05-22] MEDS: VANCOMYCIN/NS 1 GM IVPB 200 ML IV (12:10)
[2024-05-22] MEDS: ACETAMINOPHEN 500 MG TABLET 1000 MG PO (12:23)
[2024-05-22] MEDS: NIFEdipine XL 30 MG TABCR PO ×2 (15:01→21:24)
--- NOTE | 2024-05-22 19:03 | ESPR_ITS ---
Documentation for date of: 05/22/24 Subjective Subjective Interval history: Overnight events, labs reviewed. The patient examined this a.m. at bedside. The patient has no active complaints. Returned from Hemodialysis late last night, IR unavailable to take out tunneled HD cath at that time, removal will be scheduled for Friday, Will reach out to Day Care Supervisor dr Livingston on Friday if HD required, can use same catheter before removal if cultures still positive . Repeat cultures from 05/22/24 are pending results, if positive will reorder cultures on friday. Exam Vital Signs Temp Pulse Resp BP Pulse Ox O2 Del Method O2 Flow Rate 97.9 F 83 18 112/66 99 Room Air 3 05/22/24 16:00 05/22/24 16:00 05/22/24 16:00 05/22/24 16:05/22/24 16:05/22/24 16:05/22/24 12:00 Narrative Exam GENERAL: A&Ox3 . Awake, Not in acute distress NEURO: no focal neurological deficits HEENT: Atraumatic, Normocephalic. mucous membranes moist. Eyes open, Legally blind right eye, RIJ catheter site clean HEART: Normal Heart Sounds LUNGS: Clear to auscultation with no wheezing or crackles. ABDOMEN: soft, non-distended, no tenderness, no guarding or rebound tenderness SKIN: No Rash or ecchymoses EXTREMITIES: No edema, tenderness, left above-knee amputation of lower extremity , pedal pulses palpated Objective Labs 05/23/24 04:45 05/23/24 04:45 Labs: Laboratory Results - last 24 hr 05/22/24 05/22/24 05:00 08:39 WBC 15.5 H RBC 2.74 L Hgb 7.8 L Hct 23.4 L MCV 85 MCH 28.5 MCHC 33.3 RDW Std Deviation 45.7 Plt Count 277 Neut % (Auto) 62 Lymph % (Auto) 23 [place] % (Auto) 12 Eos % (Auto) 1 Baso % (Auto) 1 Neut # (Auto) 9.5 H Lymph # (Auto) 3.6 [place] # (Auto) 1.8 H Eos # (Auto) 0.1 Baso # (Auto) 0.1 Immature Gran # (Auto) 0.37 H Absolute Nucleated RBC 0.00 Immature Gran % 2 H Nucleated RBC % 0 Sodium 132 L Potassium 3.7 Chloride 98 Carbon Dioxide 29.2 Anion Gap 5 L BUN 18 Creatinine 3.2 H D Estim Creat Clear Calc 20.7 L eGFR 18 L BUN/Creatinine Ratio 6 L Glucose [address] Glu mg/dL 111 Hemoglobin A1c 5.5 Calculated Osmolality 274 L Calcium 8.2 L Random Vancomycin < 3.0 Quality Measures Quality Measures sepsis Current suspected stage: sepsis Possible source: unknown Blood cultures ordered: completed in ED Antibiotic ordered: Yes Assessment & Plan Assessment Current Active Medications: Generic Name Dose Route Start Last Admin Trade Name Freq PRN Reason Stop Dose Admin Acetaminophen 1,000 mg 05/21/24 23:13 05/22/24 12:23 Acetaminophen 500 Mg Tablet PO 06/20/24 23:12 1,000 mg Q8HR PRN Administration Temp > 100.2 or pain Aspirin 81 mg 05/19/24 11:00 05/22/24 08:35 Aspirin Ec 81 Mg Tabec PO 06/18/24 10:59 81 mg QDAY NASREEN Administration Atorvastatin Calcium 40 mg 05/19/24 21:00 05/21/24 23:17 Atorvastatin Calcium 20 Mg Tablet PO 06/18/24 20:59 40 mg HS NASREEN Administration Cyclobenzaprine HCl 10 mg 05/20/24 23:00 05/21/24 23:17 Cyclobenzaprine 5 Mg Tablet PO 06/20/24 20:59 10 mg HS PRN Administration muscle spasms Dextrose 25 ml 05/18/24 18:24 Dextrose 50%-Water Inj 50 Ml Syringe IV 06/17/24 18:23 Q15MIN PRN BG 50-70 responsive npo pt Dextrose 50 ml 05/18/24 18:24 Dextrose 50%-Water Inj 50 Ml Syringe IV 06/17/24 18:23 Q15MIN PRN BG <50 OR BG <70 & pt unresponsive Glucagon 1 mg 05/18/24 18:24 Glucagon Inj 1 Mg Vial IM Q15MIN PRN BG <70, and no IV access Heparin Sodium (Porcine) 5,000 unit 05/18/24 22:00 05/22/24 15:01 Heparin Sod Inj 5000 Unit/Ml Vial SC 06/01/24 21:59 5,000 unit Q8HR NASREEN Administration Heparin Sodium (Porcine) 3,500 unit 05/19/24 16:00 05/19/24 17:06 Heparin Sod Inj 1000 Unit/Ml Vial 10 Ml INDWELLCAT 06/02/24 15:59 3,500 unit X1 PRN Administration DIALYSIS Albumin Human 25 gm in 100 mls @ 100 mls/min 05/19/24 07:33 Albuminar-25 Ivpb IV PRN PRN DIALYSIS Promethazine HCl 12.5 mg/ 50.5 mls @ 2.5 mls/min 05/19/24 13:51 Sodium Chloride IV 06/18/24 13:50 Q6HR PRN NAUSEA OR VOMITING Ceftriaxone Sodium/Dextrose 50 mls @ 100 mls/hr 05/21/24 14:51 05/22/24 08:35 Rocephin/D5w 1gm Iv Premix IV 05/28/24 14:50 100 mls/hr QDAY NASREEN Administration Insulin Glargine 12 unit 05/18/24 18:45 05/22/24 08:34 Insulin Glargine (Lantus) 5 Unit/0.05 Ml (Per 5 Units) SC 06/17/24 18:44 12 unit QDAY NASREEN Administration Insulin Human Lispro 0 unit 05/19/24 11:30 05/22/24 17:58 Insulin Lispro (Admelog) 1 Unit/0.01 Ml Unit SC 06/18/24 11:29 3 unit ACHS NASREEN Administration Protocol Nifedipine 30 mg 05/21/24 16:00 05/22/24 15:01 Nifedipine Xl 30 Mg Tabcr PO 06/20/24 15:59 30 mg TID NASREEN Administration Ondansetron HCl 4 mg 05/18/24 18:19 05/20/24 08:30 Ondansetron Inj 2 Mg/Ml Inj 2 Ml IV 06/17/24 18:18 4 mg Q6H PRN Administration NAUSEA OR VOMITING Protocol Pantoprazole Sodium 40 mg 05/18/24 18:30 05/22/24 08:35 Pantoprazole Inj 40 Mg Vial IVP 06/17/24 18:29 40 mg QDAY NASREEN Administration Pharmacy Consult 1 each 05/18/24 18:41 Pharmacy Renal Dose Adjustment 1 Ea XX 06/17/24 18:40 PRN PRN CONSULT Pharmacy Consult 1 each 05/19/24 09:45 Vancomycin Pharmacy To Dose 1 Each Each IV 06/18/24 09:44 QDAY PRN CONSULT Plan Patient is a 44-year-old female with a past medical history significant for asthma, chronic CVA, essential hypertension, insulin-dependent diabetes mellitus type 2 [6.8], diabetic neuropathy, normocytic anemia, end-stage renal disease on hemodialysis via RIJ PermCath M/W/F presenting today with a chief complaint of generalized weakness, abdominal pain and vomiting. Patient will be admitted for workup and management of sepsis secondary to possible line sepsis. #Sepsis secondary to likely infected RIJ PermCath # MSSA bacteremia -Blood cultures 05/18 grew Staph aureus Patient presented with generalized weakness, abdominal pain and bilious vomiting. on admission SIRS 4/4. HR 108, RR 22, temp 100.6, WBC 25.7 Pro-Walt 30.93 patient recently completed a 6-week course of antibiotics on 05/13/2024 for right great toe osteomyelitis with doxycycline 100 Mg p.o. twice daily and Keflex during dialysis sessions. On all previous admissions patient also has chronic leukocytosis with WBC always elevated in the 20s. 2 out of 2 blood cultures grew GPC Plan: ? Continue vancomycin IV, pharmacy to dose -Repeat blood cultures ordered -Will remove dialysis cath when able patient was unable to complete dialysis due to malfunctioning of the PermCath. -Patient is started on ceftriaxone 05/21- #ESRD on hemodialysis via right RIJ PermCath // Patient follows up with psychopaedic nurse Dr. Livingston Patient missed hemodialysis session last Friday and only was able to tolerate 30 minutes hemodialysis on Friday due to developing generalized abdominal pain. Plan: ? Pt underwent hemodialysis today (05/19) -Patient's hemodialysis schedule is Friday ? Renally dose medication ? Avoid nephrotoxic agents ? Day Care Supervisor, Dr. Livingston consulted and is closely following the case. Appreciate recommendations. #Right adnexal mass for investigation Abdomen/pelvis CT significant for perinephric stranding, renal artery calcification, hypodense right adnexal structure, 4.7 cm. Pelvic ultrasound- No intrauterine gestation or solid uterine mass, Right ovarian simple cyst 4.8 x 3.2 x 4.1 cm Plan: -Follow-up outpatient with PCP #Chronic right great toe osteomyelitis #AKA of left lower extremity #Diabetic neuropathy Of note patient recently completed a 6-week course of antibiotics on 05/13/2024 for right great toe osteomyelitis with doxycycline 100 Mg p.o. twice daily and Keflex during dialysis sessions. Foot Xray on 04/03 shows- Cortical bone destruction at the first metatarsophalangeal join, Mild erosions distal third metatarsal -repeat right foot xray #Chronic CVA On admission CT brain was negative for acute hemorrhage, mass effect or midline shift. Still showed old small right caudate infarcts and left basal ganglia infarct Insulin-dependent diabetes mellitus type 2 [6.8] Home medication insulin glargine 38 units SC at bedtime Plan: ? Insulin lispro sliding scale #Essential hypertension On admission BP 157/77 Home medication nifedipine 30 Mg p.o. daily Plan: ? 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 Ophthalmology follow-up as outpatient #Chronic normocytic anemia On admission Hb 9.2 DDx: RUTH ANN, blood loss anemia, anemia of chronic disease, thalassemia, lead poisoning. Iron panel significant for FE 12, TIBC 207, ferritin 219. Mixed picture of iron deficiency and anemia of chronic disease. Patient received IV iron [04/04 -04/12/2024] 1 unit PRBC 04/05 Plan: - Suggest Epogen during Dialysis sessions. #Intractable nausea and vomiting, resolved - may be secondary to gastroparesis versus uremia - advance diet as tolerated - zofran prn Health maintenance: Disposition: IV antibiotics, Nephro consult Diet: NPO Lines: pIVs GI Prophylaxis: Pantoprazole Thrombo Prophylaxis: Heparin Code status: DNR/DNI Assessment and plan discussed with my senior resident Dr. Shaikh & attending physician Dr. Vasu Daniel (PGY-1)- Internal medicine resident Attending Provider Attestation/Addendum Nataliya Flores, , attest that I was physically present for the lindsay portions of the service and evaluated the patient with the resident and I reviewed and discussed the case with the resident and agree with the resident's findings and plans of care as documented above Patient seen and evaluated this AM. She states she is feeling well. Patient did not complete dialysis until midnight this AM. Will remove catheter on Friday by IR as it is tunneled. Continue with IV abx at this time.
[2024-05-22] MEDS: ATORVASTATIN CALCIUM 20 MG TABLET 40 MG PO (21:23)
[2024-05-22] MEDS: CYCLObenzaPRINE 5 MG TABLET 10 MG PO (21:24)
[2024-05-23] VITALS (10 sets, daily range): BP systolic 98–133; BP diastolic 56–80; PULSE 77–96; RESP 14–16; TEMP 36.1–36.4; O2SAT 98–100
[2024-05-23] MEDS: hydrOXYzine HCL 25 MG TABLET 12.5 MG PO (01:20)
[2024-05-23 05:34] LABS: Basophils # (Auto) 0.1 Thou/mm3 (0.0-0.2); Basophils % (Auto) 0 % (0-2.5); Eosinophils # (Auto) 0.1 Thou/mm3 (0.0-0.5); Eosinophils % (Auto) 1 % (0-10); Hematocrit 22.7 % (36.0-46.0); Immature Granulocytes % (Auto) 2 % (0-0); Immature Granulocytes Auto 0.37 Thou/mm3 (0.00-0.00); Lymphocytes # (Auto) 3.6 Thou/mm3 (1.0-4.8); Lymphocytes % (Auto) 22 % (10-50); Mean Corpuscular Hemoglobin 28.6 pg (25.0-35.0); Mean Corpuscular Volume 87 fL (80-100); Monocytes # (Auto) 1.5 Thou/mm3 (0.0-0.8); Monocytes % (Auto) 9 % (0-12); Neutrophils # (Auto) 10.7 Thou/mm3 (1.8-7.7); Neutrophils % (Auto) 66 % (37-80); Nucleated Red Blood Cell % 0 /100 WBC (0); Platelet Count 338 Thou/mm3 (140-440); Red Blood Count 2.62 Miln/mm3 (4.00-5.20); White Blood Count 16.3 Thou/mm3 (3.6-11.0)
[2024-05-23 05:35] LABS: Hemoglobin 7.5 g/dL (12.0-16.0)
[2024-05-23] MEDS: HEPARIN SOD INJ 5000 UNIT/ML VIAL SC ×3 (05:40→21:06)
[2024-05-23] MEDS: NIFEdipine XL 30 MG TABCR PO ×3 (05:46→21:00)
[2024-05-23 06:19] LABS: Carbon Dioxide 27.4 mMol/L (20.0-31.0); Chloride 97 mMol/L (98-107); Potassium 3.9 mMol/L (3.4-5.1); Sodium 133 mMol/L (136-145)
[2024-05-23 06:20] LABS: Albumin, Serum 3.2 gm/dL (3.5-5.0); Anion Gap 9 (7-16); BUN/Creatinine Ratio 6 Ratio (12-20); Blood Urea Nitrogen 29 mg/dL (9-23); Calcium 7.8 mg/dL (8.3-10.6); Calcium (Corrected) 8.4 mg/dL (8.5-10.1); Creatinine (Component) 4.7 mg/dL (0.6-1.3); Estimated Creatinine Clearance 14.1 mL/min (>60); Glucose 379 mg/dL (74-106); Osmolality,Calculated 288 (275-295); Vancomycin,Random 28.8 mcg/mL; eGFR 11 See Note
[2024-05-23] MEDS: cefTRIAXone/D5w 1gm IV premix 50 ML IV (08:05)
[2024-05-23] MEDS: ASPIRIN EC 81 MG TABEC PO (08:05)
[2024-05-23] MEDS: PANTOPRAZOLE INJ 40 MG VIAL IVP (08:05)
[2024-05-23] MEDS: INSULIN LISPRO (AdmeLOG) 1 UNIT/0.01 ML UNIT SC ×4 (08:05→21:08)
[2024-05-23] MEDS: INSULIN GLARGINE (Lantus) 5 UNIT/0.05 ML (PER 5 UNITS) 15 UNIT SC (08:08)
--- NOTE | 2024-05-23 16:12 | ESPR_ITS ---
Documentation for date of: 05/23/24 Subjective Subjective Interval history: 05/23: No acute overnight events patient seen and examined at bedside this morning patient is more alert awake and holds a conversation. Patient expressed she wants to get better and take care of herself and does not want to do drugs ever again. Patient is expecting her first grandchild very soon and wants to get healthy for the grand baby. Patient denies any chest pain or abdominal pain. Pt. expressed she is feeling a bit anxious but does not want to take any medications and wants to fight it through . Patient states that she is still grieving the loss of her leg and her parents which is the reason she has made choices to use drugs in the past. patient is agreeable to the plan for tomorrow to remove the HD tunnel catheter. Patient has no other complaints. Exam Vital Signs Temp Pulse Resp BP Pulse Ox O2 Del Method O2 Flow Rate 97 F 86 16 126/78 99 Nasal Cannula 3 05/23/24 12:00 05/23/24 13:44 05/23/24 12:00 05/23/24 13:44 05/23/24 12:00 05/23/24 12:00 05/23/24 12:00 Narrative Exam GENERAL: A&Ox3 . Awake, Not in acute distress NEURO: no focal neurological deficits HEENT: Atraumatic, Normocephalic. mucous membranes moist. Eyes open, Legally blind right eye, RIJ catheter site clean HEART: Normal Heart Sounds LUNGS: Clear to auscultation with no wheezing or crackles. ABDOMEN: soft, non-distended, no tenderness, no guarding or rebound tenderness SKIN: No Rash or ecchymoses EXTREMITIES: No edema, tenderness, left above-knee amputation of lower extremity , pedal pulses palpated Objective Labs 05/24/24 05:05 05/24/24 05:05 Labs: Laboratory Results - last 24 hr 05/23/24 04:45 WBC 16.3 H RBC 2.62 L Hgb 7.5 L Hct 22.7 L MCV 87 MCH 28.6 MCHC 33.0 RDW Std Deviation 48.0 H Plt Count 338 D Neut % (Auto) 66 Lymph % (Auto) 22 [place] % (Auto) 9 Eos % (Auto) 1 Baso % (Auto) 0 Neut # (Auto) 10.7 H Lymph # (Auto) 3.6 [place] # (Auto) 1.5 H Eos # (Auto) 0.1 Baso # (Auto) 0.1 Immature Gran # (Auto) 0.37 H Absolute Nucleated RBC 0.00 Immature Gran % 2 H Nucleated RBC % 0 Sodium 133 L Potassium 3.9 Chloride 97 L Carbon Dioxide 27.4 Anion Gap 9 BUN 29 H Creatinine 4.7 H* D Estim Creat Clear Calc 14.1 L eGFR 11 L* BUN/Creatinine Ratio 6 L Glucose 379 H D Calculated Osmolality 288 Calcium 7.8 L Corrected Calcium 8.4 L Phosphorus 3.0 Albumin 3.2 L Random Vancomycin 28.8 Quality Measures Quality Measures sepsis Current suspected stage: ruled out Possible source: unknown Blood cultures ordered: completed in ED Antibiotic ordered: Yes Assessment & Plan Assessment Current Active Medications: Generic Name Dose Route Start Last Admin Trade Name Freq PRN Reason Stop Dose Admin Acetaminophen 1,000 mg 05/21/24 23:13 05/22/24 12:23 Acetaminophen 500 Mg Tablet PO 06/20/24 23:12 1,000 mg Q8HR PRN Administration Temp > 100.2 or pain Aspirin 81 mg 05/19/24 11:00 05/23/24 08:05 Aspirin Ec 81 Mg Tabec PO 06/18/24 10:59 81 mg QDAY NASREEN Administration Atorvastatin Calcium 40 mg 05/19/24 21:00 05/22/24 21:23 Atorvastatin Calcium 20 Mg Tablet PO 06/18/24 20:59 40 mg HS NASREEN Administration Cyclobenzaprine HCl 10 mg 05/20/24 23:00 05/22/24 21:24 Cyclobenzaprine 5 Mg Tablet PO 06/20/24 20:59 10 mg HS PRN Administration muscle spasms Dextrose 25 ml 05/18/24 18:24 Dextrose 50%-Water Inj 50 Ml Syringe IV 06/17/24 18:23 Q15MIN PRN BG 50-70 responsive npo pt Dextrose 50 ml 05/18/24 18:24 Dextrose 50%-Water Inj 50 Ml Syringe IV 06/17/24 18:23 Q15MIN PRN BG <50 OR BG <70 & pt unresponsive Glucagon 1 mg 05/18/24 18:24 Glucagon Inj 1 Mg Vial IM Q15MIN PRN BG <70, and no IV access Heparin Sodium (Porcine) 5,000 unit 05/18/24 22:00 05/23/24 13:44 Heparin Sod Inj 5000 Unit/Ml Vial SC 06/01/24 21:59 5,000 unit Q8HR NASREEN Administration Heparin Sodium (Porcine) 3,500 unit 05/19/24 16:00 05/19/24 17:06 Heparin Sod Inj 1000 Unit/Ml Vial 10 Ml INDWELLCAT 06/02/24 15:59 3,500 unit X1 PRN Administration DIALYSIS Albumin Human 25 gm in 100 mls @ 100 mls/min 05/19/24 07:33 Albuminar-25 Ivpb IV PRN PRN DIALYSIS Promethazine HCl 12.5 mg/ 50.5 mls @ 2.5 mls/min 05/19/24 13:51 Sodium Chloride IV 06/18/24 13:50 Q6HR PRN NAUSEA OR VOMITING Ceftriaxone Sodium/Dextrose 50 mls @ 100 mls/hr 05/21/24 14:51 05/23/24 08:05 Rocephin/D5w 1gm Iv Premix IV 05/28/24 14:50 100 mls/hr QDAY NASREEN Administration Insulin Glargine 15 unit 05/23/24 09:00 05/23/24 08:08 Insulin Glargine (Lantus) 5 Unit/0.05 Ml (Per 5 Units) SC 06/22/24 08:59 15 unit QDAY NASREEN Administration Insulin Human Lispro 0 unit 05/19/24 11:30 05/23/24 11:28 Insulin Lispro (Admelog) 1 Unit/0.01 Ml Unit SC 06/18/24 11:29 4 unit ACHS NASREEN Administration Protocol Nifedipine 30 mg 05/21/24 16:00 05/23/24 13:44 Nifedipine Xl 30 Mg Tabcr PO 06/20/24 15:59 30 mg TID NASREEN Administration Ondansetron HCl 4 mg 05/18/24 18:19 05/20/24 08:30 Ondansetron Inj 2 Mg/Ml Inj 2 Ml IV 06/17/24 18:18 4 mg Q6H PRN Administration NAUSEA OR VOMITING Protocol Pantoprazole Sodium 40 mg 05/18/24 18:30 05/23/24 08:05 Pantoprazole Inj 40 Mg Vial IVP 06/17/24 18:29 40 mg QDAY NASREEN Administration Pharmacy Consult 1 each 05/18/24 18:41 Pharmacy Renal Dose Adjustment 1 Ea XX 06/17/24 18:40 PRN PRN CONSULT Pharmacy Consult 1 each 05/19/24 09:45 Vancomycin Pharmacy To Dose 1 Each Each IV 06/18/24 09:44 QDAY PRN CONSULT Plan Patient is a 44-year-old female with a past medical history significant for asthma, chronic CVA, essential hypertension, insulin-dependent diabetes mellitus type 2 [6.8], diabetic neuropathy, normocytic anemia, end-stage renal disease on hemodialysis via RIJ PermCath M/W/F presenting today with a chief complaint of generalized weakness, abdominal pain and vomiting. Patient will be admitted for workup and management of sepsis secondary to possible line sepsis. #Sepsis secondary to likely infected RIJ PermCath # MSSA bacteremia -Blood cultures 05/18 grew Staph aureus Patient presented with generalized weakness, abdominal pain and bilious vomiting. on admission SIRS 4/4. HR 108, RR 22, temp 100.6, WBC 25.7 Pro-Walt 30.93 patient recently completed a 6-week course of antibiotics on 05/13/2024 for right great toe osteomyelitis with doxycycline 100 Mg p.o. twice daily and Keflex during dialysis sessions. On all previous admissions patient also has chronic leukocytosis with WBC always elevated in the 20s. 2 out of 2 blood cultures grew GPC Plan: ? Continue vancomycin IV, pharmacy to dose -Repeat blood cultures ordered -Will remove dialysis cath when able patient was unable to complete dialysis due to malfunctioning of the PermCath. -Patient is started on ceftriaxone 05/21- #ESRD on hemodialysis via right RIJ PermCath M/W/F Patient follows up with programming specialist Dr. Livingston Patient missed hemodialysis session last Friday and only was able to tolerate 30 minutes hemodialysis on Friday due to developing generalized abdominal pain. Plan: ? Pt underwent hemodialysis today (05/19) -Patient's hemodialysis schedule is Friday ? Renally dose medication ? Avoid nephrotoxic agents ? Scientific Programmer Analyst, Dr. Livingston consulted and is closely following the case. Appreciate recommendations. #Right adnexal mass for investigation Abdomen/pelvis CT significant for perinephric stranding, renal artery calcification, hypodense right adnexal structure, 4.7 cm. Pelvic ultrasound- No intrauterine gestation or solid uterine mass, Right ovarian simple cyst 4.8 x 3.2 x 4.1 cm Plan: -Follow-up outpatient with PCP #Chronic right great toe osteomyelitis #AKA of left lower extremity #Diabetic neuropathy Of note patient recently completed a 6-week course of antibiotics on 05/13/2024 for right great toe osteomyelitis with doxycycline 100 Mg p.o. twice daily and Keflex during dialysis sessions. Foot Xray on 04/03 shows- Cortical bone destruction at the first metatarsophalangeal join, Mild erosions distal third metatarsal -repeat right foot xray #Chronic CVA On admission CT brain was negative for acute hemorrhage, mass effect or midline shift. Still showed old small right caudate infarcts and left basal ganglia infarct Insulin-dependent diabetes mellitus type 2 [6.8] Home medication insulin glargine 38 units SC at bedtime Plan: ? Insulin lispro sliding scale #Essential hypertension On admission BP 157/77 Home medication nifedipine 30 Mg p.o. daily Plan: ? 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 Ophthalmology follow-up as outpatient #Chronic normocytic anemia On admission Hb 9.2 DDx: RUTH ANN, blood loss anemia, anemia of chronic disease, thalassemia, lead poisoning. Iron panel significant for FE 12, TIBC 207, ferritin 219. Mixed picture of iron deficiency and anemia of chronic disease. Patient received IV iron [04/04 -04/12/2024] 1 unit PRBC 04/05 Plan: - Suggest Epogen during Dialysis sessions. #Intractable nausea and vomiting, resolved - may be secondary to gastroparesis versus uremia - advance diet as tolerated - zofran prn Health maintenance: Disposition: IV antibiotics, Nephro consult Diet: Carbohydrate consistent low Lines: pIVs GI Prophylaxis: Pantoprazole Thrombo Prophylaxis: Heparin Code status: DNR/DNI Assessment and plan discussed with my attending physician Dr. Vasu Daniel ([id number])- Internal medicine resident Attending Provider Attestation/Addendum Nataliya Flores DO, attest that I was physically present for the lindsay portions of the service and evaluated the patient with the resident and I reviewed and discussed the case with the resident and agree with the resident's findings and plans of care as documented above Patient seen and evaluated this AM. Plan for dialysis in AM prior to HD line removal. Will repeat blood cultures after removal of catheter. No acute events overnight.
[2024-05-23] MEDS: ATORVASTATIN CALCIUM 20 MG TABLET 40 MG PO (21:00)
[2024-05-23] MEDS: CYCLObenzaPRINE 5 MG TABLET 10 MG PO (21:00)
[2024-05-24] VITALS (31 sets, daily range): BP systolic 99–127; BP diastolic 64–78; PULSE 83–96; RESP 15–20; TEMP 36.2–37; O2SAT 91–96
[2024-05-24] MEDS: NIFEdipine XL 30 MG TABCR PO ×3 (04:59→21:01)
[2024-05-24] MEDS: HEPARIN SOD INJ 5000 UNIT/ML VIAL SC ×3 (04:59→21:01)
[2024-05-24 05:56] LABS: Basophils # (Auto) 0.1 Thou/mm3 (0.0-0.2); Basophils % (Auto) 0 % (0-2.5); Eosinophils # (Auto) 0.1 Thou/mm3 (0.0-0.5); Eosinophils % (Auto) 1 % (0-10); Hematocrit 24.6 % (36.0-46.0); Immature Granulocytes % (Auto) 4 % (0-0); Immature Granulocytes Auto 0.76 Thou/mm3 (0.00-0.00); Lymphocytes % (Auto) 23 % (10-50); Mean Corpuscular HGB Conc 32.5 g/dl (31.0-37.0); Mean Corpuscular Hemoglobin 28.2 pg (25.0-35.0); Mean Corpuscular Volume 87 fL (80-100); Monocytes # (Auto) 1.1 Thou/mm3 (0.0-0.8); Monocytes % (Auto) 7 % (0-12); Neutrophils # (Auto) 11.5 Thou/mm3 (1.8-7.7); Neutrophils % (Auto) 66 % (37-80); Nucleated Red Blood Cell % 0 /100 WBC (0); Platelet Count 448 Thou/mm3 (140-440); RDW Standard Deviation 47.1 fL (36.4-46.3); Red Blood Count 2.84 Miln/mm3 (4.00-5.20); White Blood Count 17.6 Thou/mm3 (3.6-11.0)
[2024-05-24 06:22] LABS: Albumin, Serum 3.3 gm/dL (3.5-5.0); Anion Gap 9 (7-16); BUN/Creatinine Ratio 7 Ratio (12-20); Blood Urea Nitrogen 40 mg/dL (9-23); Calcium 7.8 mg/dL (8.3-10.6); Calcium (Corrected) 8.4 mg/dL (8.5-10.1); Carbon Dioxide 25.9 mMol/L (20.0-31.0); Chloride 98 mMol/L (98-107); Creatinine (Component) 5.6 mg/dL (0.6-1.3); Estimated Creatinine Clearance 11.8 mL/min (>60); Glucose 290 mg/dL (74-106); Osmolality,Calculated 287 (275-295); Phosphorous 2.6 mg/dL (2.4-5.1); Sodium 133 mMol/L (136-145); Vancomycin,Random 25.4 mcg/mL; eGFR 9 See Note
[2024-05-24] MEDS: INSULIN LISPRO (AdmeLOG) 1 UNIT/0.01 ML UNIT SC ×2 (07:57→17:17)
--- NOTE | 2024-05-24 08:21 | XR_ITS ---
Examination: Venous access removal permanent tunneled dialysis catheter Fluoroscopy AP chest 2 views Exam date and time: May 24, 2024 12:37 PM INDICATIONS: Bacteremia, need to remove infected permanent tunneled dialysis catheter TECHNIQUE AND FINDINGS: Informed consent provided. Timeout performed. Skin prepped over the entrance site of the permanent tunneled dialysis catheter sterile drape applied hand hygiene 1% lidocaine administered for local anesthesia Careful dissection around the dialysis catheter was successful removal Estimated blood loss 3 cc Fluoroscopy 0.1 minute radiation dose 0.19 milligray 2 spot fluoroscopic chest films The final chest film no longer demonstrates the dialysis catheter IMPRESSION: Successful venous assess removal permanent tunneled dialysis catheter
--- NOTE | 2024-05-24 09:02 | ESPR_ITS ---
Subjective Subjective Interval history: on hd. bc with staph/ ox s. unclear if line removed or not. it should be. if so, then ok to finish rx with hd Exam Vital Signs Temp Pulse Resp BP Pulse Ox O2 Del Method O2 Flow Rate 98.2 F 92 18 124/77 96 Room Air 3 05/24/24 07:48 05/24/24 08:45 05/24/24 07:48 05/24/24 08:45 05/24/24 07:48 05/24/24 04:00 05/23/24 20:00 Narrative Exam limited visit today Objective - Internal Medicine Labs 05/24/24 05:05 05/24/24 05:05 Labs: Laboratory Results - last 24 hr 05/24/24 05:05 WBC 17.6 H RBC 2.84 L Hgb 8.0 L Hct 24.6 L MCV 87 MCH 28.2 MCHC 32.5 RDW Std Deviation 47.1 H Plt Count 448 H D Neut % (Auto) 66 Lymph % (Auto) 23 [place] % (Auto) 7 Eos % (Auto) 1 Baso % (Auto) 0 Neut # (Auto) 11.5 H Lymph # (Auto) 4.0 [place] # (Auto) 1.1 H Eos # (Auto) 0.1 Baso # (Auto) 0.1 Immature Gran # (Auto) 0.76 H Absolute Nucleated RBC 0.00 Immature Gran % 4 H Nucleated RBC % 0 Sodium 133 L Potassium 4.0 Chloride 98 Carbon Dioxide 25.9 Anion Gap 9 BUN 40 H Creatinine 5.6 H* D Estim Creat Clear Calc 11.8 L eGFR 9 L* BUN/Creatinine Ratio 7 L Glucose 290 H D Calculated Osmolality 287 Calcium 7.8 L Corrected Calcium 8.4 L Phosphorus 2.6 Albumin 3.3 L Random Vancomycin 25.4 Assessment & Plan A&P Narrative dm II blindness ckd 5 with iv associated bacteremia 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 htn with persistent pos bc, if not already done, please remove hd line and you can place a new one once cx neg at 48h and finish rx with ancef 2 gm after each hd rx thru 06/01 will see again wed if still here Time Spent With Patient Time: Total time spent is greater than 50% in coordination of care (as documented) at patient's floor/unit and/or counseling patient:
[2024-05-24 09:18] LABS: INR 0.9 (0.9-1.3); Partial Thromboplastin Time 32.3 Seconds (22.0-36.0); Prothrombin Time 10.3 Seconds (9.0-12.2)
--- NOTE | 2024-05-24 09:28 | PC.SS ---
Follow up note: Replace dialysis catheter line. Pt is on IV antibiotic. Pt will return home upon dc.
--- NOTE | 2024-05-24 09:38 | XR_ITS ---
Examination: Abdomen sonogram, complete Date and time of exam: May 24, 2024 at 1318 hours INDICATIONS: Onset right upper abdominal pain beginning 6 days ago Technique: Multiple real-time grayscale transabdominal sonographic images of the abdomen have been obtained. Findings: Absent gallbladder Common bile duct 0.4 cm no stones Pancreatic head 2.8 cm Aorta not enlarged Liver 16.5 cm fatty infiltration no focal liver lesions Normal hepatopedal portal venous flow Patent IVC Right kidney 12.1 x 5.3 x 5.4 cm cortex 1.7 cm Left kidney 9.7 x 5.9 x 7.0 cm cortex 2.1 cm 13 mm lower pole left renal cyst Moderate bilateral renal parenchymal scar formation Spleen 10.6 cm IMPRESSION: Normal common bile duct Mild hepatomegaly fatty liver Moderate bilateral renal parenchymal scar formation
[2024-05-24] MEDS: HEPARIN SOD INJ 1000 UNIT/ML VIAL 10 ML 3500 UNIT INDWELLCAT (13:00)
--- NOTE | 2024-05-24 13:17 | PC.NURSE ---
Patient taken to Ultrasound at this time. Patient in stable conditions. Vital sings within patients' baseline. No noted changes or deviations from patient's baseline
--- NOTE | 2024-05-24 13:23 | PC.NURSE ---
Verified with Dr. Daniel if tipp of permanent catheter (post-removal) needed to be sent to lab for culture and sensitivity. As per Dr. Daniel, no need for sending tip of permanent dialysis catheter to be sent to lab.
--- NOTE | 2024-05-24 14:12 | ESPR_ITS ---
Documentation for date of: 05/24/24 Senior resident attestation: Patient evaluated and examined at the bedside, plan of care discussed with rest of the team including my attending physician, except as noted. Patient is evaluated the bedside, mental status is at baseline, A and O x 3, patient denied IV drug abuse, CODE STATUS was confirmed, patient reported she will be DNR/DNI, hemodialysis scheduled for today. Source of sepsis continues to be obscure, blood cultures positive for GPC, started on IV antibiotics, will get echocardiogram and repeat cultures in the a.m. #Sepsis #Staph bacteremia #CLABSI?continue IV antibiotics, Per infectious especially Dr Yuan's recommendation due to persistent positive blood cultures, hemodialysis catheter to be removed and a new 1 can be placed if negative cultures at 48 hours. Recommend continuing antibiotic Ancef 2 g after each hemodialysis through 06/01/2024. Antibiotics switched to cefazolin following culture sensitivity results. #UTI?secondary Enterococcus, continue IV antibiotics Noted negative blood cultures from 05/22/2024 at 48 hours, ordered line removal on 05/24/2024, repeat blood cultures ordered 05/24/2024. #History of ESRD?hemodialysis per schedule, felt hat flanging operator Dr. Jimenez is following. Per Dr livingston, pt is to get HD on Friday and pt can have line holiday after that, if cultures negative, new line can be placed prior to next HD by friday. ID recommended removing dialysis cath, Quresh PGY2 Subjective Subjective Interval history: 05/24: No acute overnight events patient seen and examined at bedside. Patient states that she is been having right upper quadrant pain since last night. Pain is exacerbated with moving and when she takes deep breath makes the pain worse. Patient denies any similar pain in the past and describes the pain to be dull and achy rating it 5 out of 10 when she is laying flat and 7 when it is exacerbated with moving and deep breaths. Patient is agreeable to the plan of removing the tunneled catheter today and reinserting 1 possibly on Friday if blood cultures are negative. Patient has no other complaints. Exam Vital Signs Temp Pulse Resp BP Pulse Ox O2 Del Method O2 Flow Rate 98.0 F 94 16 117/76 91 L Room Air 3 05/24/24 13:02 05/24/24 13:15 05/24/24 13:15 05/24/24 13:15 05/24/24 13:15 05/24/24 13:15 05/23/24 20:00 Narrative Exam GENERAL: A&Ox3 . Awake, Not in acute distress NEURO: no focal neurological deficits HEENT: Atraumatic, Normocephalic. mucous membranes moist. Eyes open, Legally blind right eye, RIJ catheter site clean HEART: Normal Heart Sounds LUNGS: Clear to auscultation with no wheezing or crackles. ABDOMEN: soft, non-distended, RUQ tenderness, no guarding or rebound tenderness SKIN: No Rash or ecchymoses EXTREMITIES: No edema, tenderness, left above-knee amputation of lower extremity , pedal pulses palpated, right foot ulcer on the plantar surface Objective Labs 05/25/24 05:20 05/25/24 05:20 Labs: Laboratory Results - last 24 hr 05/24/24 05:05 WBC 17.6 H RBC 2.84 L Hgb 8.0 L Hct 24.6 L MCV 87 MCH 28.2 MCHC 32.5 RDW Std Deviation 47.1 H Plt Count 448 H D Neut % (Auto) 66 Lymph % (Auto) 23 [place] % (Auto) 7 Eos % (Auto) 1 Baso % (Auto) 0 Neut # (Auto) 11.5 H Lymph # (Auto) 4.0 [place] # (Auto) 1.1 H Eos # (Auto) 0.1 Baso # (Auto) 0.1 Immature Gran # (Auto) 0.76 H Absolute Nucleated RBC 0.00 Immature Gran % 4 H Nucleated RBC % 0 PT 10.3 INR 0.9 APTT 32.3 Sodium 133 L Potassium 4.0 Chloride 98 Carbon Dioxide 25.9 Anion Gap 9 BUN 40 H Creatinine 5.6 H* D Estim Creat Clear Calc 11.8 L eGFR 9 L* BUN/Creatinine Ratio 7 L Glucose 290 H D Calculated Osmolality 287 Calcium 7.8 L Corrected Calcium 8.4 L Phosphorus 2.6 Albumin 3.3 L Random Vancomycin 25.4 Quality Measures Quality Measures sepsis Current suspected stage: ruled out Possible source: unknown Blood cultures ordered: completed in ED Antibiotic ordered: Yes Assessment & Plan Assessment Current Active Medications: Generic Name Dose Route Start Last Admin Trade Name Freq PRN Reason Stop Dose Admin Acetaminophen 1,000 mg 05/21/24 23:13 05/22/24 12:23 Acetaminophen 500 Mg Tablet PO 06/20/24 23:12 1,000 mg Q8HR PRN Administration Temp > 100.2 or pain Aspirin 81 mg 05/19/24 11:00 05/24/24 08:26 Aspirin Ec 81 Mg Tabec PO 06/18/24 10:59 Not Given QDAY NASREEN Atorvastatin Calcium 40 mg 05/19/24 21:00 05/23/24 21:00 Atorvastatin Calcium 20 Mg Tablet PO 06/18/24 20:59 40 mg HS NASREEN Administration Cyclobenzaprine HCl 10 mg 05/20/24 23:00 05/23/24 21:00 Cyclobenzaprine 5 Mg Tablet PO 06/20/24 20:59 10 mg HS PRN Administration muscle spasms Dextrose 25 ml 05/18/24 18:24 Dextrose 50%-Water Inj 50 Ml Syringe IV 06/17/24 18:23 Q15MIN PRN BG 50-70 responsive npo pt Dextrose 50 ml 05/18/24 18:24 Dextrose 50%-Water Inj 50 Ml Syringe IV 06/17/24 18:23 Q15MIN PRN BG <50 OR BG <70 & pt unresponsive Glucagon 1 mg 05/18/24 18:24 Glucagon Inj 1 Mg Vial IM Q15MIN PRN BG <70, and no IV access Heparin Sodium (Porcine) 5,000 unit 05/18/24 22:00 05/24/24 04:59 Heparin Sod Inj 5000 Unit/Ml Vial SC 06/01/24 21:59 5,000 unit Q8HR NASREEN Administration Heparin Sodium (Porcine) 3,500 unit 05/19/24 16:00 05/24/24 13:00 Heparin Sod Inj 1000 Unit/Ml Vial 10 Ml INDWELLCAT 06/02/24 15:59 3,500 unit X1 PRN Administration DIALYSIS Albumin Human 25 gm in 100 mls @ 100 mls/min 05/19/24 07:33 Albuminar-25 Ivpb IV PRN PRN DIALYSIS Promethazine HCl 12.5 mg/ 50.5 mls @ 2.5 mls/min 05/19/24 13:51 Sodium Chloride IV 06/18/24 13:50 Q6HR PRN NAUSEA OR VOMITING Cefazolin Sodium/Dextrose 1 gm in 50 mls @ 100 mls/hr 05/24/24 19:00 Ancef Ivpb IV 06/01/24 22:00 DAILY [facility] Insulin Glargine 20 unit 05/24/24 07:45 05/24/24 07:45 Insulin Glargine (Lantus) 5 Unit/0.05 Ml (Per 5 Units) SC 06/23/24 07:44 Not Given QDAY [facility] Insulin Human Lispro 0 unit 05/19/24 11:30 05/24/24 07:57 Insulin Lispro (Admelog) 1 Unit/0.01 Ml Unit SC 06/18/24 11:29 3 unit ACHS [facility] Administration Protocol Insulin Human Lispro 5 unit 05/24/24 11:30 Insulin Lispro (Admelog) 1 Unit/0.01 Ml Unit SC 06/23/24 11:29 AC [facility] Nifedipine 30 mg 05/21/24 16:00 05/24/24 04:59 Nifedipine Xl 30 Mg Tabcr PO 06/20/24 15:59 30 mg TID NASREEN Administration Ondansetron HCl 4 mg 05/18/24 18:19 05/20/24 08:30 Ondansetron Inj 2 Mg/Ml Inj 2 Ml IV 06/17/24 18:18 4 mg Q6H PRN Administration NAUSEA OR VOMITING Protocol Pantoprazole Sodium 40 mg 05/24/24 09:00 05/24/24 08:26 Pantoprazole 40 Mg Tablet PO 06/17/24 18:29 Not Given QDAY [facility] Plan Patient is a 44-year-old female with a past medical history significant for asthma, chronic CVA, essential hypertension, insulin-dependent diabetes mellitus type 2 [6.8], diabetic neuropathy, normocytic anemia, end-stage renal disease on hemodialysis via RIJ PermCath M/W/ presenting today with a chief complaint of generalized weakness, abdominal pain and vomiting. Patient will be admitted for workup and management of sepsis secondary to possible line sepsis. #Sepsis secondary to likely infected RIJ PermCath # MSSA bacteremia -Blood cultures 05/18 grew Staph aureus Patient presented with generalized weakness, abdominal pain and bilious vomiting. on admission SIRS 4/4. HR 108, RR 22, temp 100.6, WBC 25.7 Pro-Walt 30.93 patient recently completed a 6-week course of antibiotics on 05/13/2024 for right great toe osteomyelitis with doxycycline 100 Mg p.o. twice daily and Keflex during dialysis sessions. On all previous admissions patient also has chronic leukocytosis with WBC always elevated in the 20s. 2 out of 2 blood cultures grew GPC Plan: ? Continue vancomycin IV, pharmacy to dose -Repeat blood cultures ordered -Patient is started on ceftriaxone 05/21- -Per infectious disease specialist patient is to receive Ancef with dialysis -Dialysis tunnel catheter removed on 05/24/2024, will collect repeat blood cultures today and reinsert the dialysis catheter on Friday if 48-hour blood cultures come back negative #ESRD on hemodialysis via right RIJ PermCath M/W/F Patient follows up with felt hat flanging operator Dr. Livingston Patient missed hemodialysis session last Friday and only was able to tolerate 30 minutes hemodialysis on Friday due to developing generalized abdominal pain. Plan: ? Pt underwent hemodialysis today (05/19) -Patient's hemodialysis schedule is Friday ? Renally dose medication ? Avoid nephrotoxic agents ? Fitting Room Operator, Dr. Livingston consulted and is closely following the case. Appreciate recommendations. #Abdominal pain -Patient is complaining of right upper quadrant pain since last night -There is mild tenderness on palpation -Right upper quadrant ultrasound ordered #Right adnexal mass for investigation Abdomen/pelvis CT significant for perinephric stranding, renal artery calcification, hypodense right adnexal structure, 4.7 cm. Pelvic ultrasound- No intrauterine gestation or solid uterine mass, Right ovarian simple cyst 4.8 x 3.2 x 4.1 cm Plan: -Follow-up outpatient with PCP #Chronic right great toe osteomyelitis #AKA of left lower extremity #Diabetic neuropathy Of note patient recently completed a 6-week course of antibiotics on 05/13/2024 for right great toe osteomyelitis with doxycycline 100 Mg p.o. twice daily and Keflex during dialysis sessions. Foot Xray on 04/03 shows- Cortical bone destruction at the first metatarsophalangeal join, Mild erosions distal third metatarsal -repeat right foot xray #Chronic CVA On admission CT brain was negative for acute hemorrhage, mass effect or midline shift. Still showed old small right caudate infarcts and left basal ganglia infarct Insulin-dependent diabetes mellitus type 2 [6.8] Home medication insulin glargine 38 units SC at bedtime Plan: ? Insulin lispro sliding scale #Essential hypertension On admission BP 157/77 Home medication nifedipine 30 Mg p.o. daily Plan: ? 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 Ophthalmology follow-up as outpatient #Chronic normocytic anemia On admission Hb 9.2 DDx: RUTH ANN, blood loss anemia, anemia of chronic disease, thalassemia, lead poisoning. Iron panel significant for FE 12, TIBC 207, ferritin 219. Mixed picture of iron deficiency and anemia of chronic disease. Patient received IV iron [04/04 -04/12/2024] 1 unit PRBC 04/05 Plan: - Suggest Epogen during Dialysis sessions. #Intractable nausea and vomiting, resolved - may be secondary to gastroparesis versus uremia - advance diet as tolerated - zofran prn Health maintenance: Disposition: IV antibiotics, Nephro consult Diet: Carbohydrate consistent low Lines: pIVs GI Prophylaxis: Pantoprazole Thrombo Prophylaxis: Heparin Code status: DNR/DNI Assessment and plan discussed with my senior resident physician Dr. Shaikh and my attending physician Dr. Vasu Daniel (PGY-1)- Internal medicine resident Attending Provider Attestation/Addendum I, Nataliya Leone, , attest that I was physically present for the lindsay portions of the service and evaluated the patient with the resident and I reviewed and discussed the case with the resident and agree with the resident's findings and plans of care as documented above Patient seen and evaluated this AM. Patient states she is feeling well, but has 5/10 RUQ pain. Will order RUQ US. Will remove tunneled catheter after HD today. Will repeat blood cultures following line removal. Currently on cefazolin for MSSA. Will f/u with cultures. If bcx negative after 48h, will continue abx through 06/01 with HD
[2024-05-24] MEDS: ACETAMINOPHEN 500 MG TABLET 1000 MG PO (16:09)
[2024-05-24] MEDS: INSULIN LISPRO (AdmeLOG) 1 UNIT/0.01 ML UNIT 5 UNIT SC (17:17)
[2024-05-24] MEDS: ceFAZolin/D5W 1 GM IVPB 1 GM/50 ML BAG IV (21:00)
[2024-05-24] MEDS: ATORVASTATIN CALCIUM 20 MG TABLET 40 MG PO (21:01)
[2024-05-24] MEDS: CYCLObenzaPRINE 5 MG TABLET 10 MG PO (21:01)
[2024-05-24] MEDS: INSULIN LISPRO (AdmeLOG) 1 UNIT/0.01 ML UNIT 8 UNIT SC (21:15)
[2024-05-24] MEDS: traMADol HCL 50 MG TABLET PO (22:46)
--- NOTE | 2024-05-24 22:46 | PD.NEPHPROG ---
Documentation for date of: 05/24/24 Subjective Subjective Interval history: 44-year-old female with a past medical history significant for asthma, chronic CVA, essential hypertension, insulin-dependent diabetes mellitus type 2 [6.8], diabetic neuropathy, normocytic anemia, end-stage renal disease on hemodialysis via [facility] M/W/ presenting today with a chief complaint of generalized weakness, abdominal pain and vomiting. Nephrology is consulted to arrange HD Pt is seen and examined , no complaints Review of Systems Review of Systems Systems Reviewed: All systems reviewed, normal except as documented Exam Vital Signs Temp Pulse Resp BP Pulse Ox O2 Del Method O2 Flow Rate 97.2 F 883 H 19 126/75 94 L Room Air 3 05/24/24 20:00 05/24/24 21:01 05/24/24 20:00 05/24/24 21:01 05/24/24 20:00 05/24/24 20:00 05/23/24 20:00 Narrative Exam Heart 1, s2 chest CTA kayla No edema Objective Labs 05/24/24 05:05 05/24/24 05:05 Labs: Laboratory Results - last 24 hr 05/24/24 05:05 WBC 17.6 H RBC 2.84 L Hgb 8.0 L Hct 24.6 L MCV 87 MCH 28.2 MCHC 32.5 RDW Std Deviation 47.1 H Plt Count 448 H D Neut % (Auto) 66 Lymph % (Auto) 23 [place] % (Auto) 7 Eos % (Auto) 1 Baso % (Auto) 0 Neut # (Auto) 11.5 H Lymph # (Auto) 4.0 [place] # (Auto) 1.1 H Eos # (Auto) 0.1 Baso # (Auto) 0.1 Immature Gran # (Auto) 0.76 H Absolute Nucleated RBC 0.00 Immature Gran % 4 H Nucleated RBC % 0 PT 10.3 INR 0.9 APTT 32.3 Sodium 133 L Potassium 4.0 Chloride 98 Carbon Dioxide 25.9 Anion Gap 9 BUN 40 H Creatinine 5.6 H* D Estim Creat Clear Calc 11.8 L eGFR 9 L* BUN/Creatinine Ratio 7 L Glucose 290 H D Calculated Osmolality 287 Calcium 7.8 L Corrected Calcium 8.4 L Phosphorus 2.6 Albumin 3.3 L Random Vancomycin 25.4 Assessment & Plan Assessment and plan (1) ESRD (end stage renal disease): Status: Acute Assessment and plan: Pt had HD today removed TDC for line holiday after dialysis replace TDC on if Blood culture negative (2) Hypokalemia: Status: Acute (3) Bacteremia: Status: Acute
[2024-05-25] VITALS (7 sets, daily range): BP systolic 103–134; BP diastolic 58–81; PULSE 84–92; RESP 15–21; TEMP 36.1–36.3; O2SAT 94–97
--- NOTE | 2024-05-25 00:57 | XR_ITS ---
Examination: AP chest single view Technique one AP portable upright chest single view Exam date and time: May 25, 2024 0525 hrs. Comparison May 18, 2024 Indications: Right-sided chest pain today. Findings: Opacity left base consistent with pneumonia Mild heart failure, mild enlargement left ventricle prominent vascular congestion and subtle septal edema at the lung bases Mild osteopenia Impression: Left base pneumonia Mild heart failure
[2024-05-25] MEDS: HYDROmorphone INJ 2 MG/ML VIAL 0.25 MG IVP (01:19)
[2024-05-25] MEDS: LIDOCAINE 5% 1 PATCH TOP (01:25)
[2024-05-25] MEDS: NIFEdipine XL 30 MG TABCR PO (05:53)
[2024-05-25] MEDS: HEPARIN SOD INJ 5000 UNIT/ML VIAL SC ×3 (06:02→21:13)
[2024-05-25 06:07] LABS: Basophils # (Auto) 0.1 Thou/mm3 (0.0-0.2); Basophils % (Auto) 1 % (0-2.5); Eosinophils # (Auto) 0.1 Thou/mm3 (0.0-0.5); Eosinophils % (Auto) 1 % (0-10); Hematocrit 24.4 % (36.0-46.0); Immature Granulocytes % (Auto) 6 % (0-0); Immature Granulocytes Auto 0.97 Thou/mm3 (0.00-0.00); Lymphocytes # (Auto) 4.5 Thou/mm3 (1.0-4.8); Lymphocytes % (Auto) 27 % (10-50); Mean Corpuscular HGB Conc 32.4 g/dl (31.0-37.0); Mean Corpuscular Hemoglobin 27.9 pg (25.0-35.0); Mean Corpuscular Volume 86 fL (80-100); Monocytes % (Auto) 6 % (0-12); Neutrophils # (Auto) 10.2 Thou/mm3 (1.8-7.7); Neutrophils % (Auto) 60 % (37-80); Nucleated Red Blood Cell % 0 /100 WBC (0); Platelet Count 522 Thou/mm3 (140-440); RDW Standard Deviation 47.5 fL (36.4-46.3); Red Blood Count 2.83 Miln/mm3 (4.00-5.20); White Blood Count 16.9 Thou/mm3 (3.6-11.0)
[2024-05-25 06:15] LABS: Hemoglobin 7.9 g/dL (12.0-16.0)
[2024-05-25 06:57] LABS: Albumin, Serum 3.3 gm/dL (3.5-5.0); Anion Gap 8 (7-16); BUN/Creatinine Ratio 7 Ratio (12-20); Blood Urea Nitrogen 29 mg/dL (9-23); Calcium (Corrected) 8.6 mg/dL (8.5-10.1); Carbon Dioxide 27.7 mMol/L (20.0-31.0); Chloride 98 mMol/L (98-107); Creatinine (Component) 4.2 mg/dL (0.6-1.3); Estimated Creatinine Clearance 15.7 mL/min (>60); Glucose 247 mg/dL (74-106); Osmolality,Calculated 282 (275-295); Phosphorous 2.5 mg/dL (2.4-5.1); Potassium 4.2 mMol/L (3.4-5.1); Sodium 134 mMol/L (136-145); eGFR 13 See Note
[2024-05-25] MEDS: INSULIN LISPRO (AdmeLOG) 1 UNIT/0.01 ML UNIT SC ×2 (08:07→11:35)
[2024-05-25] MEDS: INSULIN LISPRO (AdmeLOG) 1 UNIT/0.01 ML UNIT 5 UNIT SC ×2 (08:07→11:36)
[2024-05-25] MEDS: INSULIN GLARGINE (Lantus) 5 UNIT/0.05 ML (PER 5 UNITS) 25 UNIT SC (08:08)
[2024-05-25] MEDS: ASPIRIN EC 81 MG TABEC PO (08:08)
[2024-05-25] MEDS: PANTOPRAZOLE 40 MG TABLET PO (08:09)
[2024-05-25] MEDS: ceFAZolin/D5W 1 GM IVPB 1 GM/50 ML BAG IV (08:14)
[2024-05-25] MEDS: SENNA TABLET 1 TAB PO (11:35)
--- NOTE | 2024-05-25 15:09 | PC.NURSE ---
Notified RT about incentive spirometry order. Will continue to monitor patient.
--- NOTE | 2024-05-25 16:43 | PD.RESPRO ---
Documentation for date of: 05/25/24 Senior resident attestation: Patient evaluated and examined at the bedside, plan of care discussed with rest of the team including my attending physician, except as noted. Patient is evaluated the bedside, mental status is at baseline, A and O x 3, patient denied IV drug abuse, CODE STATUS was confirmed, patient reported she will be DNR/DNI, hemodialysis per schedule. #Sepsis #Staph bacteremia #CLABSI?continue IV antibiotics, Per infectious especially Dr Yuan's recommendation due to persistent positive blood cultures, hemodialysis catheter to be removed and a new 1 can be placed if negative cultures at 48 hours. Recommend continuing antibiotic Ancef 2 g after each hemodialysis through 06/01/2024. Antibiotics switched to cefazolin following culture sensitivity results. -Noted negative blood cultures from 05/22/2024 at 48 hours, ordered line removal on 05/24/2024, repeat blood cultures ordered 05/24/2024. -Patient had -2 sets of blood cultures from 05/22/2024, blood cultures from 05/24/[address] in [address] urinary results 1/2 samples and anaerobic bottle only , concern for contamination. Will order repeat cultures, tentative plan for dialysis cath placement on , 05/27/2024. #UTI?secondary Enterococcus, continue IV antibiotics #History of ESRD?hemodialysis per schedule, territory supervisor Dr. Jimenez is following. Per Dr livignston, pt is to get HD on Friday and pt can have line holiday after that, if cultures negative, new line can be placed prior to next HD by friday. ID recommended removing dialysis cath, #Chest pain: Patient is complaining of right-sided chest pain, worse on taking a deep breath, of note the patient has left-sided pneumonia on chest x-ray with possible pleural effusion, likely musculoskeletal origin of chest pain, responded to lidocaine patch. Patient reported history of falling from her bed few days ago. Quresh PGY2 Subjective Subjective Interval history: 05/25: Overnight team reported patient was complaining of severe right upper quadrant pain and was given tramadol x 1 as well as Dilaudid x 1 patient was also given a lidocaine patch. Pt's finger stick glucose was over 400 and she was given additional 8 units of lispro. Pt is seen and examined at bedside this morning. Pt endorses improvement in her right upper quadrant abdominal pain after the lidocaine patch. Patient states that it is not sharp pain but more like a dull achy pain. Patient's ultrasound had no acute findings. Patient is status post TDC removal yesterday, repeat blood cultures are ordered and will consider inserting TDC on if repeat blood cultures are negative. Patient denies any chest pain, shortness of breath. Patient has no other complaints. Exam Vital Signs Temp Pulse Resp BP Pulse Ox O2 Del Method O2 Flow Rate 96.9 F 89 21 H 123/70 95 Room Air 3 05/25/24 12:00 05/25/24 12:00 05/25/24 12:00 05/25/24 12:00 05/25/24 12:00 05/25/24 12:05/25/24 12:00 Narrative Exam GENERAL: A&Ox3 . Awake, Not in acute distress NEURO: no focal neurological deficits HEENT: Atraumatic, Normocephalic. mucous membranes moist. Eyes open, Legally blind right eye, RIJ catheter site clean HEART: Normal Heart Sounds LUNGS: Clear to auscultation with no wheezing or crackles. ABDOMEN: soft, non-distended, RUQ tenderness, no guarding or rebound tenderness SKIN: No Rash or ecchymoses EXTREMITIES: No edema, tenderness, left above-knee amputation of lower extremity, pedal pulses palpated, right foot ulcer on the plantar surface Objective Labs 05/26/24 04:55 05/26/24 04:55 Labs: Laboratory Results - last 24 hr 05/25/24 05:20 WBC 16.9 H RBC 2.83 L Hgb 7.9 L Hct 24.4 L MCV 86 MCH 27.9 MCHC 32.4 RDW Std Deviation 47.5 H Plt Count 522 H D Neut % (Auto) 60 Lymph % (Auto) 27 [place] % (Auto) 6 Eos % (Auto) 1 Baso % (Auto) 1 Neut # (Auto) 10.2 H Lymph # (Auto) 4.5 [place] # (Auto) 1.0 H Eos # (Auto) 0.1 Baso # (Auto) 0.1 Immature Gran # (Auto) 0.97 H Absolute Nucleated RBC 0.00 Immature Gran % 6 H Nucleated RBC % 0 Sodium 134 L Potassium 4.2 Chloride 98 Carbon Dioxide 27.7 Anion Gap 8 BUN 29 H Creatinine 4.2 H* D Estim Creat Clear Calc 15.7 L eGFR 13 L* BUN/Creatinine Ratio 7 L Glucose 247 H Calculated Osmolality 282 Calcium 8.0 L Corrected Calcium 8.6 Phosphorus 2.5 Albumin 3.3 L Quality Measures Quality Measures sepsis Current suspected stage: ruled out Possible source: unknown Blood cultures ordered: completed in ED Antibiotic ordered: Yes Assessment & Plan Assessment Current Active Medications: Generic Name Dose Route Start Last Admin Trade Name Freq PRN Reason Stop Dose Admin Acetaminophen 1,000 mg 05/21/24 23:13 05/24/24 16:09 Acetaminophen 500 Mg Tablet PO 06/20/24 23:12 1,000 mg Q8HR PRN Administration Temp > 100.2 or pain Aspirin 81 mg 05/19/24 11:00 05/25/24 08:08 Aspirin Ec 81 Mg Tabec PO 06/18/24 10:59 81 mg QDAY NASREEN Administration Atorvastatin Calcium 40 mg 05/19/24 21:00 05/24/24 21:01 Atorvastatin Calcium 20 Mg Tablet PO 06/18/24 20:59 40 mg HS NASREEN Administration Cyclobenzaprine HCl 10 mg 05/20/24 23:00 05/24/24 21:01 Cyclobenzaprine 5 Mg Tablet PO 06/20/24 20:59 10 mg HS PRN Administration muscle spasms Dextrose 25 ml 05/18/24 18:24 Dextrose 50%-Water Inj 50 Ml Syringe IV 06/17/24 18:23 Q15MIN PRN BG 50-70 responsive npo pt Dextrose 50 ml 05/18/24 18:24 Dextrose 50%-Water Inj 50 Ml Syringe IV 06/17/24 18:23 Q15MIN PRN BG <50 OR BG <70 & pt unresponsive Glucagon 1 mg 05/18/24 18:24 Glucagon Inj 1 Mg Vial IM Q15MIN PRN BG <70, and no IV access Heparin Sodium (Porcine) 5,000 unit 05/18/24 22:00 05/25/24 14:44 Heparin Sod Inj 5000 Unit/Ml Vial SC 06/01/24 21:59 5,000 unit Q8HR NASREEN Administration Heparin Sodium (Porcine) 3,500 unit 05/19/24 16:00 05/24/24 13:00 Heparin Sod Inj 1000 Unit/Ml Vial 10 Ml INDWELLCAT 06/02/24 15:59 3,500 unit X1 PRN Administration DIALYSIS Albumin Human 25 gm in 100 mls @ 100 mls/min 05/19/24 07:33 Albuminar-25 Ivpb IV PRN PRN DIALYSIS Promethazine HCl 12.5 mg/ 50.5 mls @ 2.5 mls/min 05/19/24 13:51 Sodium Chloride IV 06/18/24 13:50 Q6HR PRN NAUSEA OR VOMITING Cefazolin Sodium/Dextrose 1 gm in 50 mls @ 100 mls/hr 05/24/24 19:00 05/25/24 08:14 Ancef Ivpb IV 06/01/24 22:00 100 mls/hr DAILY NASREEN Administration Insulin Glargine 25 unit 05/25/24 09:00 05/25/24 08:08 Insulin Glargine (Lantus) 5 Unit/0.05 Ml (Per 5 Units) SC 06/24/24 08:59 25 unit QDAY NASREEN Administration Insulin Human Lispro 0 unit 05/19/24 11:30 05/25/24 11:35 Insulin Lispro (Admelog) 1 Unit/0.01 Ml Unit SC 06/18/24 11:29 1 unit ACHS NASREEN Administration Protocol Insulin Human Lispro 5 unit 05/24/24 11:30 05/25/24 11:36 Insulin Lispro (Admelog) 1 Unit/0.01 Ml Unit SC 06/23/24 11:29 5 unit AC NASREEN Administration Nifedipine 30 mg 05/26/24 09:00 Nifedipine Xl 30 Mg Tabcr PO 06/25/24 08:59 QDAY NASREEN Ondansetron HCl 4 mg 05/18/24 18:19 05/20/24 08:30 Ondansetron Inj 2 Mg/Ml Inj 2 Ml IV 06/17/24 18:18 4 mg Q6H PRN Administration NAUSEA OR VOMITING Protocol Pantoprazole Sodium 40 mg 05/24/24 09:00 05/25/24 08:09 Pantoprazole 40 Mg Tablet PO 06/17/24 18:29 40 mg QDAY NASREEN Administration Sennosides 1 tab 05/25/24 10:15 05/25/24 11:35 Senna Tablet PO 06/24/24 10:14 1 tab QDAY NASREEN Administration Protocol Plan Patient is a 44-year-old female with a past medical history significant for asthma, chronic CVA, essential hypertension, insulin-dependent diabetes mellitus type 2 [6.8], diabetic neuropathy, normocytic anemia, end-stage renal disease on hemodialysis via RIJ PermCath M/W/F presenting today with a chief complaint of generalized weakness, abdominal pain and vomiting. Patient will be admitted for workup and management of sepsis secondary to possible line sepsis. #Sepsis secondary to likely infected RIJ PermCath # MSSA bacteremia -Blood cultures 05/18 grew Staph aureus Patient presented with generalized weakness, abdominal pain and bilious vomiting. on admission SIRS /. HR 108, RR 22, temp 100.6, WBC 25.7 Pro-Walt 30.93 patient recently completed a 6-week course of antibiotics on 05/13/2024 for right great toe osteomyelitis with doxycycline 100 Mg p.o. twice daily and Keflex during dialysis sessions. On all previous admissions patient also has chronic leukocytosis with WBC always elevated in the 20s. 2 out of 2 blood cultures grew GPC Plan: ? Continue vancomycin IV, pharmacy to dose -Repeat blood cultures ordered -Patient is started on ceftriaxone 05/21- -Per infectious disease specialist patient is to receive Ancef with dialysis -Dialysis tunnel catheter removed on 05/24/2024, will collect repeat blood cultures today and reinsert the dialysis catheter on if 48-hour blood cultures come back negative #ESRD on hemodialysis via right RIJ PermCath M/W/ Patient follows up with territory supervisor Dr. Livingston Patient missed hemodialysis session last Friday and only was able to tolerate 30 minutes hemodialysis on Friday due to developing generalized abdominal pain. Plan: ? Pt underwent hemodialysis today (05/19) -Patient's hemodialysis schedule is Friday ? Renally dose medication ? Avoid nephrotoxic agents ? [employer], Dr. Livingston consulted and is closely following the case. Appreciate recommendations. #Abdominal pain -Patient is complaining of right upper quadrant pain since last night -There is mild tenderness on palpation -Right upper quadrant ultrasound ordered #Right adnexal mass for investigation Abdomen/pelvis CT significant for perinephric stranding, renal artery calcification, hypodense right adnexal structure, 4.7 cm. Pelvic ultrasound- No intrauterine gestation or solid uterine mass, Right ovarian simple cyst 4.8 x 3.2 x 4.1 cm Plan: -Follow-up outpatient with PCP #Chronic right great toe osteomyelitis #AKA of left lower extremity #Diabetic neuropathy Of note patient recently completed a 6-week course of antibiotics on 05/13/2024 for right great toe osteomyelitis with doxycycline 100 Mg p.o. twice daily and Keflex during dialysis sessions. Foot Xray on 04/03 shows- Cortical bone destruction at the first metatarsophalangeal join, Mild erosions distal third metatarsal -repeat right foot xray #Chronic CVA On admission CT brain was negative for acute hemorrhage, mass effect or midline shift. Still showed old small right caudate infarcts and left basal ganglia infarct Insulin-dependent diabetes mellitus type 2 [6.8] Home medication insulin glargine 38 units SC at bedtime Plan: ? Insulin lispro sliding scale #Essential hypertension On admission BP 157/77 Home medication nifedipine 30 Mg p.o. daily Plan: ? 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 Ophthalmology follow-up as outpatient #Chronic normocytic anemia On admission Hb 9.2 DDx: RUTH ANN, blood loss anemia, anemia of chronic disease, thalassemia, lead poisoning. Iron panel significant for FE 12, TIBC 207, ferritin 219. Mixed picture of iron deficiency and anemia of chronic disease. Patient received IV iron [04/04 -04/12/2024] 1 unit PRBC 04/05 Plan: - Suggest Epogen during Dialysis sessions. #Intractable nausea and vomiting, resolved - may be secondary to gastroparesis versus uremia - advance diet as tolerated - zofran prn Health maintenance: Disposition: IV antibiotics, Nephro consult Diet: Carbohydrate consistent low Lines: pIVs GI Prophylaxis: Pantoprazole Thrombo Prophylaxis: Heparin Code status: DNR/DNI Assessment and plan discussed with my senior resident physician Dr. Shaikh and my attending physician Dr. Vasu Daniel (PGY-1)- Internal medicine resident Attending Provider Attestation/Addendum Nataliya Flores, , attest that I was physically present for the lindsay portions of the service and evaluated the patient with the resident and I reviewed and discussed the case with the resident and agree with the resident's findings and plans of care as documented above Patient seen and evaluated this AM. Patient endorses improvement of RUQ pain, improved with lidocaine patch. Pain appears to be musculoskeletal in nature. Will encourage patient to use incentive spirometer. Bcx positive for GPC 1/2 after removal of HD catheter. Will repeat blood cultures in AM and continue wtih cefazolin. F/u with ID recommendation
--- NOTE | 2024-05-25 16:59 | PC.NURSE ---
Lab called and notified me patient blood cultures gram positive rods growing in an anaerobic bottle. Final results in a few days
[2024-05-25] MEDS: ATORVASTATIN CALCIUM 20 MG TABLET 40 MG PO (21:13)
[2024-05-25] MEDS: CYCLObenzaPRINE 5 MG TABLET 10 MG PO (21:18)
[2024-05-26] VITALS (7 sets, daily range): BP systolic 135–153; BP diastolic 73–91; PULSE 81–93; RESP 11–18; TEMP 36.2–37.1; O2SAT 96–99
[2024-05-26] MEDS: HEPARIN SOD INJ 5000 UNIT/ML VIAL SC ×3 (05:01→21:00)
[2024-05-26 06:07] LABS: Basophils # (Auto) 0.1 Thou/mm3 (0.0-0.2); Basophils % (Auto) 0 % (0-2.5); Eosinophils # (Auto) 0.1 Thou/mm3 (0.0-0.5); Eosinophils % (Auto) 1 % (0-10); Hematocrit 25.3 % (36.0-46.0); Immature Granulocytes % (Auto) 4 % (0-0); Immature Granulocytes Auto 0.78 Thou/mm3 (0.00-0.00); Lymphocytes # (Auto) 4.7 Thou/mm3 (1.0-4.8); Lymphocytes % (Auto) 26 % (10-50); Mean Corpuscular Hemoglobin 27.8 pg (25.0-35.0); Mean Corpuscular Volume 87 fL (80-100); Monocytes # (Auto) 0.8 Thou/mm3 (0.0-0.8); Monocytes % (Auto) 4 % (0-12); Neutrophils # (Auto) 11.3 Thou/mm3 (1.8-7.7); Neutrophils % (Auto) 64 % (37-80); Nucleated Red Blood Cell % 0 /100 WBC (0); Platelet Count 620 Thou/mm3 (140-440); RDW Standard Deviation 48.5 fL (36.4-46.3); Red Blood Count 2.91 Miln/mm3 (4.00-5.20); White Blood Count 17.8 Thou/mm3 (3.6-11.0)
[2024-05-26 06:15] LABS: Hemoglobin 8.1 g/dL (12.0-16.0)
[2024-05-26 06:51] LABS: Anion Gap 10 (7-16); BUN/Creatinine Ratio 8 Ratio (12-20); Blood Urea Nitrogen 40 mg/dL (9-23); Calcium 8.4 mg/dL (8.3-10.6); Carbon Dioxide 25.5 mMol/L (20.0-31.0); Chloride 99 mMol/L (98-107); Creatinine (Component) 5.2 mg/dL (0.6-1.3); Estimated Creatinine Clearance 12.7 mL/min (>60); Glucose 89 mg/dL (74-106); Osmolality,Calculated 276 (275-295); Potassium 4.3 mMol/L (3.4-5.1); Sodium 134 mMol/L (136-145); eGFR 10 See Note
--- NOTE | 2024-05-26 09:00 | PC.SS ---
Follow up note: On IV antibiotic. Blood cultures are still positive. Still needs dialysis cath placed. Pt is requiring continuing antibiotic Ancef 2 g after each hemo dialysis through 06/01/2024. SS has faxed IV antibiotic information to [facility]. SS has [facility] to inform her pt is requiring IV antibiotic during dialysis and confirmed patient's dialysis chair time is MWF at 2pm.
[2024-05-26] MEDS: NIFEdipine XL 30 MG TABCR PO (09:32)
[2024-05-26] MEDS: ceFAZolin/D5W 1 GM IVPB 1 GM/50 ML BAG IV (09:32)
[2024-05-26] MEDS: ASPIRIN EC 81 MG TABEC PO (09:33)
[2024-05-26] MEDS: PANTOPRAZOLE 40 MG TABLET PO (09:33)
--- NOTE | 2024-05-26 14:04 | PD.IDPROG ---
Subjective Subjective Interval history: bc pos from the other day, repeats pending. may need temp line unless bc is a contaminant. Exam Vital Signs Temp Pulse Resp BP Pulse Ox O2 Del Method O2 Flow Rate 98.7 F 90 18 143/91 H 98 Room Air 3 05/26/24 08:00 05/26/24 12:00 05/26/24 08:00 05/26/24 09:32 05/26/24 08:00 05/26/24 08:00 05/25/24 16:00 Narrative Exam limited visit Objective - Internal Medicine Labs 05/26/24 04:55 05/26/24 04:55 Labs: Laboratory Results - last 24 hr 05/26/24 04:55 WBC 17.8 H RBC 2.91 L Hgb 8.1 L Hct 25.3 L MCV 87 MCH 27.8 MCHC 32.0 RDW Std Deviation 48.5 H Plt Count 620 H D Neut % (Auto) 64 Lymph % (Auto) 26 [place] % (Auto) 4 Eos % (Auto) 1 Baso % (Auto) 0 Neut # (Auto) 11.3 H Lymph # (Auto) 4.7 [place] # (Auto) 0.8 Eos # (Auto) 0.1 Baso # (Auto) 0.1 Immature Gran # (Auto) 0.78 H Absolute Nucleated RBC 0.00 Immature Gran % 4 H Nucleated RBC % 0 Sodium 134 L Potassium 4.3 Chloride 99 Carbon Dioxide 25.5 Anion Gap 10 BUN 40 H Creatinine 5.2 H* D Estim Creat Clear Calc 12.7 L eGFR 10 L* BUN/Creatinine Ratio 8 L Glucose 89 D Calculated Osmolality 276 Calcium 8.4 Assessment & Plan A&P Narrative dm II blindness ckd 5 with iv associated bacteremia 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 htn he line removed per renal note. may need a temp line unless bc that is pos is identified as a possible contaminant. if tdc placed, then finish rx with ancef 2 gm after each hd rx thru 06/01 will see again Friday if still here Time Spent With Patient Time: Total time spent is greater than 50% in coordination of care (as documented) at patient's floor/unit and/or counseling patient:
--- NOTE | 2024-05-26 16:36 | PD.RESPRO ---
Documentation for date of: 05/26/24 Senior resident attestation: Patient evaluated and examined at the bedside, plan of care discussed with rest of the team including my attending physician, except as noted. Patient is evaluated the bedside, mental status is at baseline, A and O x 3, patient denied IV drug abuse, CODE STATUS was confirmed, patient reported she will be DNR/DNI, hemodialysis per schedule. #Sepsis- resolving #Staph bacteremia #CLABSI?continue IV antibiotics, Per infectious especially Dr Yuan's recommendation due to persistent positive blood cultures, hemodialysis catheter to be removed and a new 1 can be placed if negative cultures at 48 hours. Recommend continuing antibiotic Ancef 2 g after each hemodialysis through 06/01/2024. Antibiotics switched to cefazolin following culture sensitivity results. -Noted negative blood cultures from 05/22/2024 at 48 hours, ordered line removal on 05/24/2024, repeat blood cultures ordered 05/24/2024. -Patient had -2 sets of blood cultures from 05/22/2024, blood cultures from 05/24/[address] urinary results 1/2 samples and anaerobic bottle only , concern for contamination. Will order repeat cultures, tentative plan for dialysis cath placement on , 05/27/2024. #UTI?secondary Enterococcus, continue IV antibiotics #History of ESRD?hemodialysis per schedule, director digital strategy Dr. Jimenez is following. Per Dr livingston, pt is to get HD on Friday and pt can have line holiday after that, if cultures negative, new line can be placed prior to next HD by friday. ID recommended removing dialysis cath, #Chest pain: Patient is complaining of right-sided chest pain, worse on taking a deep breath, of note the patient has left-sided pneumonia on chest x-ray with possible pleural effusion, likely musculoskeletal origin of chest pain, responded to lidocaine patch. Patient reported history of falling from her bed few days ago. Quresh PGY2 Subjective Subjective Interval history: 05/26: No acute overnight events. Patient seen and examined at bedside this morning. Patient is informed regarding the GPC prelim report and we will not be able to put dialysis catheter tomorrow until the cultures are negative repeat cultures will be sent today. Patient appears to be a little disappointed however she understands she states she wants to get better and is okay with that plan. Patient denies any chest pain or abdominal pain. Patient states she has been using the incentive spirometry which has significantly helped with the right-sided pain she was experiencing couple days ago. Patient has no other complaint. Exam Vital Signs Temp Pulse Resp BP Pulse Ox O2 Del Method O2 Flow Rate 97.7 F 90 16 139/81 H 96 Room Air 3 05/26/24 16:00 05/26/24 16:00 05/26/24 16:00 05/26/24 16:00 05/26/24 16:00 05/26/24 16:00 05/25/24 16:00 Narrative Exam GENERAL: A&Ox3 . Awake, Not in acute distress NEURO: no focal neurological deficits HEENT: Atraumatic, Normocephalic. mucous membranes moist. Eyes open, Legally blind right eye, RIJ catheter site clean s/p HDC removal HEART: Normal Heart Sounds LUNGS: Clear to auscultation with no wheezing or crackles. ABDOMEN: soft, non-distended, RUQ tenderness, no guarding or rebound tenderness SKIN: No Rash or ecchymoses EXTREMITIES: No edema, tenderness, left above-knee amputation of lower extremity, pedal pulses palpated, right foot ulcer on the plantar surface Objective Labs 05/27/24 04:54 05/27/24 04:54 Labs: Laboratory Results - last 24 hr 05/26/24 04:55 WBC 17.8 H RBC 2.91 L Hgb 8.1 L Hct 25.3 L MCV 87 MCH 27.8 MCHC 32.0 RDW Std Deviation 48.5 H Plt Count 620 H D Neut % (Auto) 64 Lymph % (Auto) 26 [place] % (Auto) 4 Eos % (Auto) 1 Baso % (Auto) 0 Neut # (Auto) 11.3 H Lymph # (Auto) 4.7 [place] # (Auto) 0.8 Eos # (Auto) 0.1 Baso # (Auto) 0.1 Immature Gran # (Auto) 0.78 H Absolute Nucleated RBC 0.00 Immature Gran % 4 H Nucleated RBC % 0 Sodium 134 L Potassium 4.3 Chloride 99 Carbon Dioxide 25.5 Anion Gap 10 BUN 40 H Creatinine 5.2 H* D Estim Creat Clear Calc 12.7 L eGFR 10 L* BUN/Creatinine Ratio 8 L Glucose 89 D Calculated Osmolality 276 Calcium 8.4 Quality Measures Quality Measures sepsis Current suspected stage: ruled out Possible source: unknown Blood cultures ordered: completed in ED Antibiotic ordered: Yes Assessment & Plan Assessment Current Active Medications: Generic Name Dose Route Start Last Admin Trade Name Freq PRN Reason Stop Dose Admin Acetaminophen 1,000 mg 05/21/24 23:13 05/24/24 16:09 Acetaminophen 500 Mg Tablet PO 06/20/24 23:12 1,000 mg Q8HR PRN Administration Temp > 100.2 or pain Aspirin 81 mg 05/19/24 11:00 05/26/24 09:33 Aspirin Ec 81 Mg Tabec PO 06/18/24 10:59 81 mg QDAY NASREEN Administration Atorvastatin Calcium 40 mg 05/19/24 21:00 05/25/24 21:13 Atorvastatin Calcium 20 Mg Tablet PO 06/18/24 20:59 40 mg HS NASREEN Administration Cyclobenzaprine HCl 10 mg 05/20/24 23:00 05/25/24 21:18 Cyclobenzaprine 5 Mg Tablet PO 06/20/24 20:59 10 mg HS PRN Administration muscle spasms Protocol Dextrose 25 ml 05/18/24 18:24 Dextrose 50%-Water Inj 50 Ml Syringe IV 06/17/24 18:23 Q15MIN PRN BG 50-70 responsive npo pt Dextrose 50 ml 05/18/24 18:24 Dextrose 50%-Water Inj 50 Ml Syringe IV 06/17/24 18:23 Q15MIN PRN BG <50 OR BG <70 & pt unresponsive Glucagon 1 mg 05/18/24 18:24 Glucagon Inj 1 Mg Vial IM Q15MIN PRN BG <70, and no IV access Heparin Sodium (Porcine) 5,000 unit 05/18/24 22:00 05/26/24 13:43 Heparin Sod Inj 5000 Unit/Ml Vial SC 06/01/24 21:59 5,000 unit Q8HR NASREEN Administration Heparin Sodium (Porcine) 3,500 unit 05/19/24 16:00 05/24/24 13:00 Heparin Sod Inj 1000 Unit/Ml Vial 10 Ml INDWELLCAT 06/02/24 15:59 3,500 unit X1 PRN Administration DIALYSIS Albumin Human 25 gm in 100 mls @ 100 mls/min 05/19/24 07:33 Albuminar-25 Ivpb IV PRN PRN DIALYSIS Promethazine HCl 12.5 mg/ 50.5 mls @ 2.5 mls/min 05/19/24 13:51 Sodium Chloride IV 06/18/24 13:50 Q6HR PRN NAUSEA OR VOMITING Cefazolin Sodium/Dextrose 1 gm in 50 mls @ 100 mls/hr 05/24/24 19:00 05/26/24 09:32 Ancef Ivpb IV 06/01/24 22:00 100 mls/hr DAILY NASREEN Administration Insulin Glargine 25 unit 05/25/24 09:00 05/26/24 09:39 Insulin Glargine (Lantus) 5 Unit/0.05 Ml (Per 5 Units) SC 06/24/24 08:59 Not Given QDAY NASREEN Insulin Human Lispro 0 unit 05/19/24 11:30 05/26/24 11:30 Insulin Lispro (Admelog) 1 Unit/0.01 Ml Unit SC 06/18/24 11:29 Not Given ACHS [facility] Protocol Insulin Human Lispro 5 unit 05/24/24 11:30 05/26/24 13:07 Insulin Lispro (Admelog) 1 Unit/0.01 Ml Unit SC 06/23/24 11:29 Not Given AC NASREEN Nifedipine 30 mg 05/26/24 09:00 05/26/24 09:32 Nifedipine Xl 30 Mg Tabcr PO 06/25/24 08:59 30 mg QDAY NASREEN Administration Ondansetron HCl 4 mg 05/18/24 18:19 05/20/24 08:30 Ondansetron Inj 2 Mg/Ml Inj 2 Ml IV 06/17/24 18:18 4 mg Q6H PRN Administration NAUSEA OR VOMITING Protocol Pantoprazole Sodium 40 mg 05/24/24 09:00 05/26/24 09:33 Pantoprazole 40 Mg Tablet PO 06/17/24 18:29 40 mg QDAY NASREEN Administration Sennosides 1 tab 05/25/24 10:15 05/26/24 09:33 Senna Tablet PO 06/24/24 10:14 Not Given QDAY NASREEN Protocol Plan Patient is a 44-year-old female with a past medical history significant for asthma, chronic CVA, essential hypertension, insulin-dependent diabetes mellitus type 2 [6.8], diabetic neuropathy, normocytic anemia, end-stage renal disease on hemodialysis via RIJ PermCath M/W/F presenting today with a chief complaint of generalized weakness, abdominal pain and vomiting. Patient will be admitted for workup and management of sepsis secondary to possible line sepsis. #Sepsis secondary to likely infected RIJ PermCath # MSSA bacteremia #S/P HD catheter removed 05/24/24 -Blood cultures 05/18 grew Staph aureus Patient presented with generalized weakness, abdominal pain and bilious vomiting. on admission SIRS 4/4. HR 108, RR 22, temp 100.6, WBC 25.7 Pro-Walt 30.93 patient recently completed a 6-week course of antibiotics on 05/13/2024 for right great toe osteomyelitis with doxycycline 100 Mg p.o. twice daily and Keflex during dialysis sessions. On all previous admissions patient also has chronic leukocytosis with WBC always elevated in the 20s. 2 out of 2 blood cultures grew GPC Plan: -Repeat blood cultures ordered -Per infectious disease specialist consulted- patient is to receive Ancef with dialysis -Cefazolin started by ID 05/24- -Dialysis tunnel catheter removed on 05/24/2024, repeat blood cultures ordered and will reinsert the dialysis catheter when 48-hour blood cultures come back negative #ESRD on hemodialysis via right RIJ PermCath M/W/F Patient follows up with director digital strategy Dr. Livingston Patient missed hemodialysis session last Friday and only was able to tolerate 30 minutes hemodialysis on Friday due to developing generalized abdominal pain. Plan: -Patient's hemodialysis schedule is Friday ? Renally dose medication ? Avoid nephrotoxic agents ? Manager Marketing Communications, Dr. Livingston consulted and is closely following the case. Appreciate recommendations. #Abdominal pain -Patient is complaining of right upper quadrant pain since last night -There is mild tenderness on palpation -Right upper quadrant ultrasound -negative for any acute findings -Incentive spirometry ordered #Right adnexal mass for investigation Abdomen/pelvis CT significant for perinephric stranding, renal artery calcification, hypodense right adnexal structure, 4.7 cm. Pelvic ultrasound- No intrauterine gestation or solid uterine mass, Right ovarian simple cyst 4.8 x 3.2 x 4.1 cm Plan: -Follow-up outpatient with PCP #Chronic right great toe osteomyelitis #AKA of left lower extremity #Diabetic neuropathy Of note patient recently completed a 6-week course of antibiotics on 05/13/2024 for right great toe osteomyelitis with doxycycline 100 Mg p.o. twice daily and Keflex during dialysis sessions. Foot Xray on 04/03 shows- Cortical bone destruction at the first metatarsophalangeal join, Mild erosions distal third metatarsal -repeat right foot xray #Chronic CVA On admission CT brain was negative for acute hemorrhage, mass effect or midline shift. Still showed old small right caudate infarcts and left basal ganglia infarct Insulin-dependent diabetes mellitus type 2 [6.8] Home medication insulin glargine 38 units SC at bedtime Plan: ? Insulin lispro sliding scale #Essential hypertension On admission BP 157/77 Home medication nifedipine 30 Mg p.o. daily Plan: ? 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 Ophthalmology follow-up as outpatient #Chronic normocytic anemia On admission Hb 9.2 DDx: RUTH ANN, blood loss anemia, anemia of chronic disease, thalassemia, lead poisoning. Iron panel significant for FE 12, TIBC 207, ferritin 219. Mixed picture of iron deficiency and anemia of chronic disease. Patient received IV iron [04/04 -04/12/2024] 1 unit PRBC 04/05 Plan: - Suggest Epogen during Dialysis sessions. #Intractable nausea and vomiting, resolved - may be secondary to gastroparesis versus uremia - advance diet as tolerated - zofran prn Health maintenance: Disposition: IV antibiotics, Nephro consult Diet: Carbohydrate consistent low Lines: pIVs GI Prophylaxis: Pantoprazole Thrombo Prophylaxis: Heparin Code status: DNR/DNI Assessment and plan discussed with my senior resident physician Dr. Shaikh and my attending physician Dr. Vasu Daniel (PGY-1)- Internal medicine resident Attending Provider Attestation/Addendum INataliya, , attest that I was physically present for the lindsay portions of the service and evaluated the patient with the resident and I reviewed and discussed the case with the resident and agree with the resident's findings and plans of care as documented above Patient seen and evaluated this AM. Patient states she is doing well. Afebrile. 1/2 blood cultures positive for GPC, pending speciation. Will repeat Bcx and wait for them to be negative x 48h before placing new dialysis catheter. Continue with IV abx
[2024-05-26] MEDS: CYCLObenzaPRINE 5 MG TABLET 10 MG PO (20:56)
[2024-05-27] VITALS (7 sets, daily range): BP systolic 142–164; BP diastolic 82–94; PULSE 83–94; RESP 13–17; TEMP 36.1–36.6; O2SAT 97–99
[2024-05-27] MEDS: HEPARIN SOD INJ 5000 UNIT/ML VIAL SC ×3 (05:55→21:52)
[2024-05-27 06:19] LABS: Basophils % (Auto) 1 % (0-2.5); Eosinophils % (Auto) 0 % (0-10); Hematocrit 24.3 % (36.0-46.0); Lymphocytes % (Auto) 23 % (10-50); Mean Corpuscular HGB Conc 32.1 g/dl (31.0-37.0); Mean Corpuscular Hemoglobin 28.2 pg (25.0-35.0); Mean Corpuscular Volume 88 fL (80-100); Monocytes % (Auto) 4 % (0-12); Neutrophils # (Auto) 9.9 Thou/mm3 (1.8-7.7); Neutrophils % (Auto) 68 % (37-80); Platelet Count 679 Thou/mm3 (140-440); RDW Standard Deviation 49.4 fL (36.4-46.3); Red Blood Count 2.77 Miln/mm3 (4.00-5.20); White Blood Count 14.5 Thou/mm3 (3.6-11.0)
[2024-05-27 06:20] LABS: Basophils # (Auto) 0.1 Thou/mm3 (0.0-0.2); Eosinophils # (Auto) 0.1 Thou/mm3 (0.0-0.5); Immature Granulocytes % (Auto) 4 % (0-0); Immature Granulocytes Auto 0.56 Thou/mm3 (0.00-0.00); Lymphocytes # (Auto) 3.3 Thou/mm3 (1.0-4.8); Monocytes # (Auto) 0.6 Thou/mm3 (0.0-0.8); Nucleated Red Blood Cell % 0 /100 WBC (0)
[2024-05-27 06:23] LABS: Hemoglobin 7.8 g/dL (12.0-16.0)
[2024-05-27 06:50] LABS: Anion Gap 11 (7-16); BUN/Creatinine Ratio 9 Ratio (12-20); Blood Urea Nitrogen 52 mg/dL (9-23); Calcium 8.1 mg/dL (8.3-10.6); Chloride 101 mMol/L (98-107); Creatinine (Component) 6.1 mg/dL (0.6-1.3); Estimated Creatinine Clearance 10.8 mL/min (>60); Glucose 173 mg/dL (74-106); Osmolality,Calculated 288 (275-295); Potassium 4.4 mMol/L (3.4-5.1); Sodium 135 mMol/L (136-145); eGFR 8 See Note
[2024-05-27] MEDS: INSULIN LISPRO (AdmeLOG) 1 UNIT/0.01 ML UNIT 5 UNIT SC ×2 (07:46→17:24)
[2024-05-27] MEDS: INSULIN LISPRO (AdmeLOG) 1 UNIT/0.01 ML UNIT SC ×3 (07:47→20:31)
[2024-05-27] MEDS: INSULIN GLARGINE (Lantus) 5 UNIT/0.05 ML (PER 5 UNITS) 25 UNIT SC (09:49)
[2024-05-27] MEDS: SENNA TABLET 1 TAB PO (09:50)
[2024-05-27] MEDS: ASPIRIN EC 81 MG TABEC PO (09:50)
[2024-05-27] MEDS: PANTOPRAZOLE 40 MG TABLET PO (09:50)
[2024-05-27] MEDS: NIFEdipine XL 30 MG TABCR PO (09:50)
[2024-05-27] MEDS: ceFAZolin/D5W 1 GM IVPB 1 GM/50 ML BAG IV (09:50)
--- NOTE | 2024-05-27 15:04 | PC.SS ---
SS has faxed [facility] physician's note indication pt is requiring IV antibiotic during dialysis. SS attempted to numerous time to call [facility] but was unsuccessful. SS was not able to leave voicemail due to voicemail being full. Pt is currently on IV antibiotic and blood cultures are still positive. HARINI spoke to Mayelin at [facility] main office [phone] to inform her pt is requiring IV antibiotic during dialysis and HARINI has attempted to contact [facility] in [place] 3 times but was unsuccess. Mayelin also attempted to contact [facility] and she was unsuccessful. SS also spoke to Chelo a different clearance representative at [facility]'s main office who states since the pt has been hospitalized updated information requires to be sent faxed to [phone].
--- NOTE | 2024-05-27 16:36 | ESPR_ITS ---
Documentation for date of: 05/27/24 Subjective Subjective Interval history: 44-year-old female with a past medical history significant for asthma, chronic CVA, essential hypertension, insulin-dependent diabetes mellitus type 2 [6.8], diabetic neuropathy, normocytic anemia, end-stage renal disease on hemodialysis via [facility] M/W/F presenting today with a chief complaint of generalized weakness, abdominal pain and vomiting. Nephrology is consulted to arrange HD Pt is seen and examined No shortness of breath Exam Vital Signs Temp Pulse Resp BP Pulse Ox O2 Del Method O2 Flow Rate 97.3 F 83 13 164/94 H 99 Room Air 3 05/27/24 12:00 05/27/24 12:00 05/27/24 12:00 05/27/24 12:00 05/27/24 12:00 05/27/24 12:00 05/25/24 16:00 Narrative Exam Heart s1, s2 Chest CTA kayla no edema Objective Labs 05/28/24 04:33 05/27/24 04:54 Labs: Laboratory Results - last 24 hr 05/27/24 04:54 WBC 14.5 H RBC 2.77 L Hgb 7.8 L Hct 24.3 L MCV 88 MCH 28.2 MCHC 32.1 RDW Std Deviation 49.4 H Plt Count 679 H D Neut % (Auto) 68 Lymph % (Auto) 23 [place] % (Auto) 4 Eos % (Auto) 0 Baso % (Auto) 1 Neut # (Auto) 9.9 H Lymph # (Auto) 3.3 [place] # (Auto) 0.6 Eos # (Auto) 0.1 Baso # (Auto) 0.1 Immature Gran # (Auto) 0.56 H Absolute Nucleated RBC 0.00 Immature Gran % 4 H Nucleated RBC % 0 Sodium 135 L Potassium 4.4 Chloride 101 Carbon Dioxide 23.0 Anion Gap 11 BUN 52 H Creatinine 6.1 H* D Estim Creat Clear Calc 10.8 L eGFR 8 L* BUN/Creatinine Ratio 9 L Glucose 173 H D Calculated Osmolality 288 Calcium 8.1 L Assessment & Plan Assessment and plan (1) ESRD (end stage renal disease): Status: Acute Assessment and plan: Waiting for TDC placement blood culture from 05/24 positive Blood culture drawn on 05/26 if negative then will get TDC and will get HD (2) Hypokalemia: Status: Acute (3) Bacteremia: Status: Acute
--- NOTE | 2024-05-27 16:59 | ESPR_ITS ---
Documentation for date of: 05/27/24 Senior resident attestation: #Sepsis- resolving #Staph bacteremia #CLABSI?continue IV antibiotics, Per infectious especially Dr Yuan's recommendation due to persistent positive blood cultures, hemodialysis catheter to be removed and a new 1 can be placed if negative cultures at 48 hours. Recommend continuing antibiotic Ancef 2 g after each hemodialysis through 06/01/2024. Antibiotics switched to cefazolin following culture sensitivity results. -Noted negative blood cultures from 05/22/2024 at 48 hours, ordered line removal on 05/24/2024, repeat blood cultures ordered 05/24/2024. -Patient had -2 sets of blood cultures from 05/22/2024, blood cultures from 05/24/2024 grew GPC 1/2 samples and anaerobic bottle only , speciated Staph aureus, same pathogen as before. Due to positive blood cultures, will defer new TDC cath placement on Friday, as cultures will speciate Friday around 9 AM. Will order TDC cath placement if cultures negative. Previous ID recommendations were antibiotic Ancef through June 01, but following positive culture in 120, will get new recommendations from ID on Friday. #UTI?secondary Enterococcus, continue IV antibiotics #History of ESRD?hemodialysis per schedule, mechanical door repairer Dr. Jimenez is following. Per Dr livingston, pt is to get HD on Friday and pt can have line holiday after that, if cultures negative, new line can be placed prior to next HD by friday. ID recommended removing dialysis cath, #Chest pain:?Now resolved Patient evaluated and examined at the bedside, plan of care discussed with rest of the team including my attending physician, except as noted. Quresh PGY2 Subjective Subjective Interval history: 05/27: No acute overnight events. Patient seen and examined at bedside this morning. pt expressed she wants to get her TDC as soon as possible. she deniess backpain, chest pain or abdominal pain. Pt states she has bowel movment and feels much better. She continues to use incentive spirometry. Patient has no other complaints. Exam Vital Signs Temp Pulse Resp BP Pulse Ox O2 Del Method O2 Flow Rate 97.2 F 90 13 150/90 H 99 Room Air 3 05/27/24 16:00 05/27/24 16:00 05/27/24 16:00 05/27/24 16:00 05/27/24 16:00 05/27/24 16:00 05/27/24 16:00 Narrative Exam GENERAL: A&Ox3 . Awake, Not in acute distress NEURO: no focal neurological deficits HEENT: Atraumatic, Normocephalic. mucous membranes moist. Eyes open, Legally blind right eye, RIJ catheter site clean s/p HDC removal HEART: Normal Heart Sounds LUNGS: Clear to auscultation with no wheezing or crackles. ABDOMEN: soft, non-distended, RUQ tenderness, no guarding or rebound tenderness SKIN: No Rash or ecchymoses EXTREMITIES: No edema, tenderness, left above-knee amputation of lower extremity , pedal pulses palpated, right foot ulcer on the plantar surface Objective Labs 05/28/24 04:33 05/28/24 04:33 Labs: Laboratory Results - last 24 hr 05/27/24 04:54 WBC 14.5 H RBC 2.77 L Hgb 7.8 L Hct 24.3 L MCV 88 MCH 28.2 MCHC 32.1 RDW Std Deviation 49.4 H Plt Count 679 H D Neut % (Auto) 68 Lymph % (Auto) 23 [place] % (Auto) 4 Eos % (Auto) 0 Baso % (Auto) 1 Neut # (Auto) 9.9 H Lymph # (Auto) 3.3 [place] # (Auto) 0.6 Eos # (Auto) 0.1 Baso # (Auto) 0.1 Immature Gran # (Auto) 0.56 H Absolute Nucleated RBC 0.00 Immature Gran % 4 H Nucleated RBC % 0 Sodium 135 L Potassium 4.4 Chloride 101 Carbon Dioxide 23.0 Anion Gap 11 BUN 52 H Creatinine 6.1 H* D Estim Creat Clear Calc 10.8 L eGFR 8 L* BUN/Creatinine Ratio 9 L Glucose 173 H D Calculated Osmolality 288 Calcium 8.1 L Quality Measures Quality Measures sepsis Current suspected stage: ruled out Possible source: unknown Blood cultures ordered: completed in ED Antibiotic ordered: Yes Assessment & Plan Assessment Current Active Medications: Generic Name Dose Route Start Last Admin Trade Name Freq PRN Reason Stop Dose Admin Acetaminophen 1,000 mg 05/21/24 23:13 05/24/24 16:09 Acetaminophen 500 Mg Tablet PO 06/20/24 23:12 1,000 mg Q8HR PRN Administration Temp > 100.2 or pain Aspirin 81 mg 05/19/24 11:00 05/27/24 09:50 Aspirin Ec 81 Mg Tabec PO 06/18/24 10:59 81 mg QDAY NASREEN Administration Atorvastatin Calcium 40 mg 05/19/24 21:00 05/26/24 21:19 Atorvastatin Calcium 20 Mg Tablet PO 06/18/24 20:59 Not Given HS NASREEN Cyclobenzaprine HCl 10 mg 05/20/24 23:00 05/26/24 20:56 Cyclobenzaprine 5 Mg Tablet PO 06/20/24 20:59 10 mg HS PRN Administration muscle spasms Protocol Dextrose 25 ml 05/18/24 18:24 Dextrose 50%-Water Inj 50 Ml Syringe IV 06/17/24 18:23 Q15MIN PRN BG 50-70 responsive npo pt Dextrose 50 ml 05/18/24 18:24 Dextrose 50%-Water Inj 50 Ml Syringe IV 06/17/24 18:23 Q15MIN PRN BG <50 OR BG <70 & pt unresponsive Glucagon 1 mg 05/18/24 18:24 Glucagon Inj 1 Mg Vial IM Q15MIN PRN BG <70, and no IV access Heparin Sodium (Porcine) 5,000 unit 05/18/24 22:00 05/27/24 14:44 Heparin Sod Inj 5000 Unit/Ml Vial SC 06/01/24 21:59 5,000 unit Q8HR NASREEN Administration Heparin Sodium (Porcine) 3,500 unit 05/19/24 16:00 05/24/24 13:00 Heparin Sod Inj 1000 Unit/Ml Vial 10 Ml INDWELLCAT 06/02/24 15:59 3,500 unit X1 PRN Administration DIALYSIS Albumin Human 25 gm in 100 mls @ 100 mls/min 05/19/24 07:33 Albuminar-25 Ivpb IV PRN PRN DIALYSIS Promethazine HCl 12.5 mg/ 50.5 mls @ 2.5 mls/min 05/19/24 13:51 Sodium Chloride IV 06/18/24 13:50 Q6HR PRN NAUSEA OR VOMITING Cefazolin Sodium/Dextrose 1 gm in 50 mls @ 100 mls/hr 05/24/24 19:00 05/27/24 09:50 Ancef Ivpb IV 06/01/24 22:00 100 mls/hr DAILY NASREEN Administration Insulin Glargine 25 unit 05/25/24 09:00 05/27/24 09:49 Insulin Glargine (Lantus) 5 Unit/0.05 Ml (Per 5 Units) SC 06/24/24 08:59 25 unit QDAY NASREEN Administration Insulin Human Lispro 0 unit 05/19/24 11:30 05/27/24 12:05 Insulin Lispro (Admelog) 1 Unit/0.01 Ml Unit SC 06/18/24 11:29 Not Given ACHS NASREEN Protocol Insulin Human Lispro 5 unit 05/24/24 11:30 05/27/24 12:05 Insulin Lispro (Admelog) 1 Unit/0.01 Ml Unit SC 06/23/24 11:29 Not Given AC NASREEN Nifedipine 30 mg 05/26/24 09:00 05/27/24 09:50 Nifedipine Xl 30 Mg Tabcr PO 06/25/24 08:59 30 mg QDAY NASREEN Administration Ondansetron HCl 4 mg 05/18/24 18:19 05/20/24 08:30 Ondansetron Inj 2 Mg/Ml Inj 2 Ml IV 06/17/24 18:18 4 mg Q6H PRN Administration NAUSEA OR VOMITING Protocol Pantoprazole Sodium 40 mg 05/24/24 09:00 05/27/24 09:50 Pantoprazole 40 Mg Tablet PO 06/17/24 18:29 40 mg QDAY NASREEN Administration Sennosides 1 tab 05/25/24 10:15 05/27/24 09:50 Senna Tablet PO 06/24/24 10:14 1 tab QDAY NASREEN Administration Protocol Plan Patient is a 44-year-old female with a past medical history significant for asthma, chronic CVA, essential hypertension, insulin-dependent diabetes mellitus type 2 [6.8], diabetic neuropathy, normocytic anemia, end-stage renal disease on hemodialysis via RIJ PermCath M/W/F presenting today with a chief complaint of generalized weakness, abdominal pain and vomiting. Patient will be admitted for workup and management of sepsis secondary to possible line sepsis. #Sepsis secondary to likely infected RIJ PermCath # MSSA bacteremia #S/P HD catheter removed 05/24/24 -Blood cultures 05/18 grew Staph aureus Patient presented with generalized weakness, abdominal pain and bilious vomiting. on admission SIRS 4/4. HR 108, RR 22, temp 100.6, WBC 25.7 Pro-Walt 30.93 patient recently completed a 6-week course of antibiotics on 05/13/2024 for right great toe osteomyelitis with doxycycline 100 Mg p.o. twice daily and Keflex during dialysis sessions. On all previous admissions patient also has chronic leukocytosis with WBC always elevated in the 20s. 2 out of 2 blood cultures grew GPC Plan: -Repeat blood cultures preliminary report shows no growth after 24 hours-will wait for 48-hour final results -Per infectious disease specialist consulted- patient is to receive Ancef with dialysis -Cefazolin started by ID 05/24- -Dialysis tunnel catheter removed on 05/24/2024, repeat blood cultures ordered and will reinsert the dialysis catheter when 48-hour blood cultures come back negative #ESRD on hemodialysis via right RIJ PermCath M// Patient follows up with mechanical door repairer Dr. Livingston Patient missed hemodialysis session last Friday and only was able to tolerate 30 minutes hemodialysis on Friday due to developing generalized abdominal pain. Plan: -Patient's hemodialysis schedule is Friday ? Renally dose medication ? Avoid nephrotoxic agents ? Assistant Mechanic, Dr. Livingston consulted and is closely following the case. Appreciate recommendations. #Abdominal pain -Patient is complaining of right upper quadrant pain since last night -There is mild tenderness on palpation -Right upper quadrant ultrasound -negative for any acute findings -Incentive spirometry ordered #Right adnexal mass for investigation Abdomen/pelvis CT significant for perinephric stranding, renal artery calcification, hypodense right adnexal structure, 4.7 cm. Pelvic ultrasound- No intrauterine gestation or solid uterine mass, Right ovarian simple cyst 4.8 x 3.2 x 4.1 cm Plan: -Follow-up outpatient with PCP #Chronic right great toe osteomyelitis #AKA of left lower extremity #Diabetic neuropathy Of note patient recently completed a 6-week course of antibiotics on 05/13/2024 for right great toe osteomyelitis with doxycycline 100 Mg p.o. twice daily and Keflex during dialysis sessions. Foot Xray on 04/03 shows- Cortical bone destruction at the first metatarsophalangeal join, Mild erosions distal third metatarsal -repeat right foot xray #Chronic CVA On admission CT brain was negative for acute hemorrhage, mass effect or midline shift. Still showed old small right caudate infarcts and left basal ganglia infarct Insulin-dependent diabetes mellitus type 2 [6.8] Home medication insulin glargine 38 units SC at bedtime Plan: ? Insulin lispro sliding scale #Essential hypertension On admission BP 157/77 Home medication nifedipine 30 Mg p.o. daily Plan: ? 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 Ophthalmology follow-up as outpatient #Chronic normocytic anemia On admission Hb 9.2 DDx: RUTH ANN, blood loss anemia, anemia of chronic disease, thalassemia, lead poisoning. Iron panel significant for FE 12, TIBC 207, ferritin 219. Mixed picture of iron deficiency and anemia of chronic disease. Patient received IV iron [04/04 -04/12/2024] 1 unit PRBC 04/05 Plan: - Suggest Epogen during Dialysis sessions. #Intractable nausea and vomiting, resolved - may be secondary to gastroparesis versus uremia - advance diet as tolerated - zofran prn Health maintenance: Disposition: IV antibiotics, Nephro consult Diet: Carbohydrate consistent low Lines: pIVs GI Prophylaxis: Pantoprazole Thrombo Prophylaxis: Heparin Code status: DNR/DNI Assessment and plan discussed with my senior resident physician Dr. Shaikh and my attending physician Dr. Vasu Daniel (PGY-1)- Internal medicine resident Attending Provider Attestation/Addendum Nataliya Flores DO, attest that I was physically present for the lindsay portions of the service and evaluated the patient with the resident and I reviewed and discussed the case with the resident and agree with the resident's findings and plans of care as documented above Patient seen and evaluated this AM. No acute events overnight. Bcx after removal of catheter positive for MSSA. Pending final cultures. If negative x 48hrs tomorrow, plan for placement of HD catheter and continue with abx with HD.
[2024-05-27] MEDS: CYCLObenzaPRINE 5 MG TABLET 10 MG PO (20:28)
[2024-05-27] MEDS: ATORVASTATIN CALCIUM 20 MG TABLET 40 MG PO (20:28)
--- NOTE | 2024-05-27 23:49 | PC.NURSE ---
pt reports feeling anxious and is asking for meds to relieve her anxiety. Dr. Barton was made aware, new orders for pt, see MAR.
[2024-05-28] VITALS (31 sets, daily range): BP systolic 117–174; BP diastolic 80–110; PULSE 76–101; RESP 12–18; TEMP 36–36.3; O2SAT 97–100
--- NOTE | 2024-05-28 | XR_ITS ---
Ultrasound-guided needle placement right internal jugular vein Permanent tunneled dialysis catheter insertion, percutaneous Fluoroscopy AP chest, portable, single view. Date and time of procedure: May 28, 2024 0930 hours INDICATIONS: Patient's permanent tunneled dialysis catheter removed May 24, 2024 secondary to bacteremia, need for new permanent tunneled dialysis catheter for stat and long-term dialysis Informed consent provided Technique: A timeout was completed verifying correct patient, procedure, site, positioning, and special equipment if applicable. The patient was placed in a dependent position appropriate for dialysis catheter placement based on the vein to be cannulated. The patient'sright neck was prepped and draped in sterile fashion. Maximum Sterile Barrier Technique used including cap, mask, sterile gown, sterile gloves, and sterile full body drape. If ultrasound technique used: sterile gel and sterile probe covers. Hand Hygiene performed using proper scrub, soap and water, or alcohol-based hand rub. 1% lidocaine was used to anesthetize the surrounding skin area The [employer] portable ultrasound apparatus utilized to confirm patency of the right internal jugular vein Utilizing ultrasonographic guidance successful 21-gauge needle puncture right internal jugular vein. Ultrasound images were recorded and stored. Vessel micropuncture was performed with 21-gauge needle. 0.18 wire guide is introduced into the vein. 0.18 wire is introduced into the vena cava under fluoroscopy. Subcutaneous tunnel formed in the upper chest. Permanent tunneled dialysis catheter placed in the subcutaneous tunnel. Dilators were introduced over the J-wire guide. Tunneled dialysis catheter is introduced through a dilator with venous sheath into the superior vena cava under fluoroscopic guidance. The catheter is sutured in place to the skin and a sterile dressing applied. Perfusion to the extremity distal to the point of catheter insertion is checked and found to be adequate Attending radiologist was present for the entire procedure Estimated blood loss2 cc. The patient tolerated the procedure well and there were no complications Impression: Successful ultrasound-guided needle placement right internal jugular vein Successful permanent tunneled dialysis catheter insertion, percutaneous Fluoroscopy 0.3 minute radiation dose 2.41 milligray 1 spot fluoroscopic chest film. AP chest performed at completion procedure demonstrates satisfactory position dialysis catheter. May use dialysis catheter.
[2024-05-28] MEDS: LORazepam 2 MG/ML VIAL 1 MG IVP (01:01)
--- NOTE | 2024-05-28 05:53 | PC.NURSE ---
okay to hold heparin [address] Gil. was made aware of pt's platelets.
[2024-05-28 06:11] LABS: Basophils # (Auto) 0.1 Thou/mm3 (0.0-0.2); Basophils % (Auto) 1 % (0-2.5); Eosinophils # (Auto) 0.1 Thou/mm3 (0.0-0.5); Eosinophils % (Auto) 0 % (0-10); Hematocrit 24.6 % (36.0-46.0); Immature Granulocytes % (Auto) 3 % (0-0); Immature Granulocytes Auto 0.41 Thou/mm3 (0.00-0.00); Lymphocytes # (Auto) 3.4 Thou/mm3 (1.0-4.8); Lymphocytes % (Auto) 22 % (10-50); Mean Corpuscular HGB Conc 32.1 g/dl (31.0-37.0); Mean Corpuscular Hemoglobin 28.2 pg (25.0-35.0); Mean Corpuscular Volume 88 fL (80-100); Monocytes # (Auto) 0.8 Thou/mm3 (0.0-0.8); Monocytes % (Auto) 5 % (0-12); Neutrophils # (Auto) 10.4 Thou/mm3 (1.8-7.7); Neutrophils % (Auto) 69 % (37-80); Nucleated Red Blood Cell % 0 /100 WBC (0); Platelet Count 543 Thou/mm3 (140-440); RDW Standard Deviation 49.2 fL (36.4-46.3); White Blood Count 15.2 Thou/mm3 (3.6-11.0)
[2024-05-28 06:22] LABS: Hemoglobin 7.9 g/dL (12.0-16.0)
[2024-05-28 06:54] LABS: Anion Gap 14 (7-16); BUN/Creatinine Ratio 9 Ratio (12-20); Blood Urea Nitrogen 56 mg/dL (9-23); Calcium 7.3 mg/dL (8.3-10.6); Chloride 101 mMol/L (98-107); Creatinine (Component) 6.5 mg/dL (0.6-1.3); Estimated Creatinine Clearance 10.2 mL/min (>60); Glucose 292 mg/dL (74-106); Osmolality,Calculated 292 (275-295); Potassium 4.6 mMol/L (3.4-5.1); Sodium 133 mMol/L (136-145); eGFR 7 See Note
[2024-05-28 09:02] LABS: INR 0.9 (0.9-1.3); Partial Thromboplastin Time 31.8 Seconds (22.0-36.0); Prothrombin Time 10.4 Seconds (9.0-12.2)
--- NOTE | 2024-05-28 09:04 | ESPR_ITS ---
Subjective Subjective Interval history: ok for new tdc in new location if bc neg at 48h. might be today. Exam Vital Signs Temp Pulse Resp BP Pulse Ox O2 Del Method O2 Flow Rate 97.3 F 96 17 150/80 H 97 Room Air 3 05/28/24 07:49 05/28/24 07:49 05/28/24 07:49 05/28/24 07:49 05/28/24 07:49 05/28/24 07:49 05/27/24 16:00 Narrative Exam limited eval Objective - Internal Medicine Labs 05/28/24 04:33 05/28/24 04:33 Labs: Laboratory Results - last 24 hr 05/28/24 05/28/24 04:33 07:28 WBC 15.2 H RBC 2.80 L Hgb 7.9 L Hct 24.6 L MCV 88 MCH 28.2 MCHC 32.1 RDW Std Deviation 49.2 H Plt Count 543 H D Neut % (Auto) 69 Lymph % (Auto) 22 [place] % (Auto) 5 Eos % (Auto) 0 Baso % (Auto) 1 Neut # (Auto) 10.4 H Lymph # (Auto) 3.4 [place] # (Auto) 0.8 Eos # (Auto) 0.1 Baso # (Auto) 0.1 Immature Gran # (Auto) 0.41 H Absolute Nucleated RBC 0.00 Immature Gran % 3 H Nucleated RBC % 0 PT 10.4 INR 0.9 APTT 31.8 Sodium 133 L Potassium 4.6 Chloride 101 Carbon Dioxide 18.0 L Anion Gap 14 BUN 56 H Creatinine 6.5 H* Estim Creat Clear Calc 10.2 L eGFR 7 L* BUN/Creatinine Ratio 9 L Glucose 292 H D Calculated Osmolality 292 Calcium 7.3 L Assessment & Plan A&P Narrative dm II blindness ckd 5 with iv associated bacteremia. 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 htn hd line removed per renal note. ok to replace tdc if bc remains neg as of about 9 am today and give ancef 2 gm with each hd rx thru 06/08. weekly labs on iv rx please, cbc, renal panel, esr. in house we give ancef daily to avoid missed doses if given prn hd. will see again Friday if still here Time Spent With Patient Time: Total time spent is greater than 50% in coordination of care (as documented) at patient's floor/unit and/or counseling patient:
--- NOTE | 2024-05-28 09:09 | PC.SS ---
Follow up note: Dialysis cath placed today and receive dialysis. Pt will return home upon dc. SS spoke to Virgen, Golf Course Architect at [facility] confirmed they have received inquiry which was faxed yesterday (pt requiring IV antibiotic during dialysis).
[2024-05-28] MEDS: HEPARIN SOD LOCK SYR 100 UNIT/ML 500 UNIT INTRACATH (09:45)
[2024-05-28] MEDS: fentaNYL CIT INJ 50 mCg/ML AMP 2ML IVP (10:21)
[2024-05-28] MEDS: LIDOCAINE INJ PF 1% 30 ML VIAL 11 ML INFL (10:22)
--- NOTE | 2024-05-28 10:40 | PC.NURSE ---
Recieved DC orders for pt, however she is currently gone to IR for PermCath insertion. She is also likely to receive dialysis before DC
[2024-05-28] MEDS: HEPARIN SOD INJ 1000 UNIT/ML VIAL 10 ML 4100 UNIT INDWELLCAT ×2 (11:01→15:44)
--- NOTE | 2024-05-28 11:22 | PC.NURSE ---
Report given to NICK Abdalla post dialysis catheter insertion. VSS. Dressing clean, dry, and intact.
[2024-05-28] MEDS: INSULIN LISPRO (AdmeLOG) 1 UNIT/0.01 ML UNIT 5 UNIT SC (16:37)
--- NOTE | 2024-05-28 16:41 | PC.NURSE ---
Dialysis completed for 3 hrs, tolerated well. Respiration even and unlabored. Saturating at 98% room air. Able to removed 2200 ml of fluid net. Post tx BP 127/96, HR 96, Temp 96.8. Pt back in her room. Call light within reached. Report given to Lianne ROMERO
--- NOTE | 2024-05-28 19:44 | ESDS_ITS ---
<Statement entered by Shayne White MD - 06/05/24 13:38> I reviewed above note and agree with findings and plans. I have also personally examined the patient with medicine team and went over assessment and plan with medical team including contracts intern and resident physician. Planned Discharge Date 05/28/24 DS: Providers Provider Date of admission: 05/18/24 18:16 Primary care physician: Khadijah Veronica PA-C Admitting Provider: Vadim Chan DO Attending Provider on Admission: Nataliya Leone DO Consults: 05/18/24 18:27 Consult to Nephrology Stat Comment: Consulting Provider: Bala Livingston 05/20/24 18:38 Consult to Infectious Diseases Routine Comment: Consulting Provider: Billy Yuan 05/24/24 19:53 Referral Wound Care Routine Comment: Instructions: Wound right great toe (plantar) Attending Provider on DC: Lian Daniel MD Discharging Provider: Lian Daniel MD DS: Diagnosis Problem List Completed Was Problem List Reviewed/Reconciled?: Yes Hospital Course Hospital Course Hospital course: Ms. Bajwa is a 44-year-old female with a past medical history significant for asthma, chronic CVA, essential hypertension, insulin-dependent diabetes mellitus type 2, diabetic neuropathy, normocytic anemia, end-stage renal disease on hemodialysis via RIJ PermCath // presented to [facility] ED on 05/18/24 with a chief complaint of generalized weakness, abdominal pain and vomiting. Patient had missed her Friday session of dialysis for feeling unwell and then was only able to complete 30 minutes of the following Friday session patient was unable to tolerate dialysis due to not feeling well with extreme nausea and weakness. On labs patient was found to be septic and blood cultures were positive for GPC bacteremia. Film Splicer and infectious disease were consulted decision was made to remove patient's PermCath due to GPC bacteremia and will repeat cultures until 48 hours negative before reinserting the dialysis catheter. Blood cultures grew Staph aureus and patient was started on IV antibiotics as well as IV fluids and tunneled dialysis catheter was removed on 05/24/2024. During her hospitalization patient also complained of right upper quadrant pain liver ultrasound was ordered and findings were consistent with Normal common bile duct Mild hepatomegaly fatty liver, Moderate bilateral renal parenchymal scar formation. Patient was encouraged to use incentive spirometry as this pain was likely from prolonged immobility and laying in bed. patient had resolution of her symptoms of abdominal pain nausea vomiting and repeat blood cultures were negative for 48 hours and on 05/28/2024 patient underwent repeat PermCath placement and had a session of dialysis with the new catheter. Patient is able to tolerate diet, had a bowel movement, and is clinically and hemodynamically stable to be discharged home. Patient will continue outpatient dialysis schedule per her program host. #Sepsis secondary to likely infected RIJ PermCath # MSSA bacteremia #S/P HD catheter removed 05/24/24 -Blood cultures 05/18 grew Staph aureus Patient presented with generalized weakness, abdominal pain and bilious vomiting. on admission SIRS 08/06. HR 108, RR 22, temp 100.6, WBC 25.7 Pro-Walt 30.93 patient recently completed a 6-week course of antibiotics on 05/13/2024 for right great toe osteomyelitis with doxycycline 100 Mg p.o. twice daily and Keflex during dialysis sessions. On all previous admissions patient also has chronic leukocytosis with WBC always elevated in the 20s. 2 out of 2 blood cultures grew GPC Plan: -Repeat blood cultures preliminary report shows no growth after 24 hours-will wait for 48-hour final results -Per infectious disease specialist consulted- patient is to receive Ancef with dialysis -Cefazolin started by ID 05/24- -Dialysis tunnel catheter removed on 05/24/2024, repeat blood cultures ordered and will reinsert the dialysis catheter when 48-hour blood cultures come back negative Discharge Recommendations Patient is recommended to follow-up with primary care physician within 5 days of discharge from hospital, and get blood work including CBC, renal panel and ESR every week until Patient also recommended follow-up with her program host within 1 week. Patient is recommended to continue with cefazolin 2 gm with each Hemodialysis session through June 08 2024, recommend weekly labs until on IV treatment including CBC, renal panel and ESR. Recommend taking 25 units of insulin glargine, and follow-up with your primary doctor for diabetes management on outpatient basis. In case of worsening symptoms please return to the emergency room . 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 Cindy Daniel (PGY-1)- Internal medicine resident Time Spent with Patient Time attestation: Total time spent providing and/or coordinating discharge services: Exam Vital Signs Temp Pulse Resp BP Pulse Ox O2 Del Method O2 Flow Rate 96.8 F 80 18 127/96 H 98 Room Air 2 05/28/24 15:58 05/28/24 16:00 05/28/24 15:58 05/28/24 15:58 05/28/24 15:58 05/28/24 11:48 05/28/24 10:37 Narrative Exam GENERAL: A&Ox3 . Awake, Not in acute distress NEURO: no focal neurological deficits HEENT: Atraumatic, Normocephalic. mucous membranes moist. Eyes open, Legally blind right eye, RIJ catheter site clean s/p HDC HEART: Normal Heart Sounds LUNGS: Clear to auscultation with no wheezing or crackles. ABDOMEN: soft, non-distended, RUQ tenderness, no guarding or rebound tenderness SKIN: No Rash or ecchymoses EXTREMITIES: No edema, tenderness, left above-knee amputation of lower extremity , pedal pulses palpated, right foot ulcer on the plantar surface Discharge Plan Plan Patient Disposition: HOME (Self Care) Care Plan Goals: Patient is recommended to follow-up with primary care physician within 5 days of discharge from hospital, and get blood work including CBC, renal panel and ESR every week until Patient also recommended follow-up with her program host within 1 week. Patient is recommended to continue with cefazolin 2 gm with each Hemodialysis session through June 08 2024, recommend weekly labs until on IV treatment including CBC, renal panel and ESR. Recommend taking 25 units of insulin glargine, and follow-up with your primary doctor for diabetes management on outpatient basis. In case of worsening symptoms please return to the emergency room . Prescriptions/Referrals Prescriptions/Med Rec: New insulin glargine [Basaglar KwikPen U-100 Insulin] 100 unit/mL (3 mL) insulin pen 25 unit subcut QAM Qty: 15 0RF (DME) pen needle, diabetic [1st Tier Unifine Pentips] 32 gauge x 5/32 needle See Rx Instructions .Route Qty: 100 0RF Rx Instructions: As directed Continued cyclobenzaprine 10 mg tablet 10 mg PO HS PRN (Reason: muscle spasm) Qty: 10 0RF (DME) nebulizer and compressor Device See Rx Instructions .Route Qty: 1 0RF Rx Instructions: As directed lorazepam 0.5 mg tablet 0.5 mg PO HS Patient Comments: TAKE 1 TABLET BY MOUTH EVERY EVENING nifedipine 30 mg Tablet Extended Release 24hr 30 mg PO QDAY 90 Days Qty: 90 0RF Baqsimi 3 mg/actuation spray,non-aerosol 3 mg intranasal QDAY PRN (Reason: hypoglycemia) Qty: 1 0RF amlodipine 5 mg tablet 5 mg PO DAILY Patient Comments: TAKE 1 TABLET BY MOUTH DAILY FOR BLOOD PRESSURE Discontinued insulin glargine [Basaglar KwikPen U-100 Insulin] 100 unit/mL (3 mL) insulin pen 38 unit SUBCUT QDAY Patient Comments: INJECT 28 UNITS SUBCUTANEOUSLY ONCE A DAY Novolin R Regular U100 Insulin 100 unit/mL solution See Protocol subcut TID Protocol: Insulin Corrective High-Dose Regimen Condition: Fingerstick Blood Glucose Dose/Route: Insulin Units Condition: 141-180 mg/dl Dose/Route: 6 units/SQ Condition: 181-220 mg/dl Dose/Route: 8 units/SQ Condition: 221-260 mg/dl Dose/Route: 10 units/SQ Condition: 261-300 mg/dl Dose/Route: 12 units/SQ Condition: 301-350 mg/dl Dose/Route: 14 units/SQ Condition: 351-400 mg/dl Dose/Route: 16 units/SQ Condition: greater than 400 mg/dl Dose/Route: 18 units/SQ Patient Comments: USE UP TO 30 UNITS MAX/ DAY PER SLIDING SCALE 3 TIMES A DAY Referrals: Bala Livingston MD [Physician] - Khadijah Veronica PA-C [Primary Care Provider] - Outpatient Orders (i.e. Home Health, Labs, Imaging): CBC Auto Diff Post-Transfusion (Routine) Location: None Selected Ordered By: Amber Shaikh Sed Rate (ESR) (Routine) Location: None Selected Ordered By: Amber Shaikh Renal Function Panel (Routine) Location: None Selected Ordered By: Amber Shaikh Patient/Caregiver Discharge Instructions Print Language: Upper Sorbian Stand Alone Forms: Hannah Award Info., Patient Portal Info Letter Discharge Order Discharge Orders: Discharge (Routine); Ordered 05/28/24 Ordered By: Alonso Lopez Quality Discharge Quality Measures none
== END 2024-05-28 17:53 | disposition home or self-care (01) | DRG 721 ==
LOC: SERX 15:12 → SERHOLD 18:40 → S3SX 22:00
PROVIDERS: Emergency Medicine; Internal Medicine Infectious Disease; Radiology Diagnostic Radiology; Student in an Organized Health Care Education/Training Program; Admitting Provider Student in an Organized Health Care Education/Training Program; Emergency Provider Emergency Medicine; PCP Physician Assistant; Visit Provider Internal Medicine
DX: T80.211A Bloodstream infection due to central venous catheter, initial encounter (principal); A41.01 Sepsis due to Methicillin susceptible Staphylococcus aureus; E87.1 Hypo-osmolality and hyponatremia; I12.0 Hypertensive chronic kidney disease with stage 5 chronic kidney disease or end stage renal disease; N18.6 End stage renal disease; E11.40 Type 2 diabetes mellitus with diabetic neuropathy, unspecified; G93.89 Other specified disorders of brain; J45.909 Unspecified asthma, uncomplicated; H54.8 Legal blindness, as defined in USA; M86.671 Other chronic osteomyelitis, right ankle and foot; E11.69 Type 2 diabetes mellitus with other specified complication; E11.22 Type 2 diabetes mellitus with diabetic chronic kidney disease; D63.1 Anemia in chronic kidney disease; E87.6 Hypokalemia; E87.8 Other disorders of electrolyte and fluid balance, not elsewhere classified; E83.51 Hypocalcemia; E83.42 Hypomagnesemia; F15.10 Other stimulant abuse, uncomplicated; B95.2 Enterococcus as the cause of diseases classified elsewhere; K76.0 Fatty (change of) liver, not elsewhere classified; G93.40 Encephalopathy, unspecified; S00.531A Contusion of lip, initial encounter; N39.0 Urinary tract infection, site not specified; N83.291 Other ovarian cyst, right side; E11.621 Type 2 diabetes mellitus with foot ulcer; L97.419 Non-pressure chronic ulcer of right heel and midfoot with unspecified severity; Z66 Do not resuscitate; Z56.0 Unemployment, unspecified; Z86.73 Personal history of transient ischemic attack (TIA), and cerebral infarction without residual deficits; Z89.612 Acquired absence of left leg above knee; Z99.2 Dependence on renal dialysis; Z79.899 Other long term (current) drug therapy; Z79.4 Long term (current) use of insulin; Z91.158 Patient's noncompliance with renal dialysis for other reason; W06.XXXA Fall from bed, initial encounter; Y92.003 Bedroom of unspecified non-institutional (private) residence as the place of occurrence of the external cause; Y84.8 Other medical procedures as the cause of abnormal reaction of the patient, or of later complication, without mention of misadventure at the time of the procedure
CPT/HCPCS: 36415; 36600; 70450; 71045; 73620; 74176; 76700; 76856; 76937; 77001; 80048; 80053; 80069; 80202; 80307; 80320; 81001; 82140; 82803; 83036; 83605; 83690; 83735; 83880; 84100; 84145; 84443; 84484; 84703; 85025; 85610; 85730; 87040; 87077; 87081; 87086; 87186; 87400; 87811; 93005; 93225; 93306; 96360; 96372; 99291; A4216; A4649; C1750; C1769; C1894; J0689; J0696; J1642; J1643; J1815; J1956; J2060; J2405; J2470; J2997; J3010; J3370; J3371; J3475; J3480; J3490; J7030; J7050; Q5106; A9270; G0480

== ENCOUNTER 2024-08-05 10:25 | Emergency (ER) | payer MEDICAID, SELFPAY ==
[2024-08-05 10:26] VITALS: BMI 29.5
[2024-08-05 11:14] VITALS: BP 159/89; PULSE 95; RESP 16; TEMP 36.7; O2SAT 96; BMI 29.5
--- NOTE | 2024-08-05 11:41 | PD.EDRME ---
Rapid Medical Screening Exam RME Arrival date/time: 08/05/24 10:25 44-year-old female presents emergency department for possible Vas-Cath infection or bladder infection was sent over by her category specialist for evaluation. I have greeted and performed a focused initial assessment of this patient. Initial appropriate labs ordered at this time. A comprehensive ED assessment and evaluation of the patient and analysis of all test and completion of medical decision making process will be conducted by additional ED provider. Chief Complaint: Recheck/Abnormal Lab/Rx Time Seen by Provider: 08/05/24 10:55 Vital signs: Vital Signs Temperature 98.0 F 08/05/24 11:14 Pulse Rate 95 08/05/24 11:14 Respiratory Rate 16 08/05/24 11:14 Blood Pressure 159/89 H 08/05/24 11:14 Pulse Oximetry (%) 96 08/05/24 11:14 Oxygen Delivery Method Room Air 08/05/24 11:14
[2024-08-05 12:06] LABS: Lactate (Lactic Acid) 0.9 mMol/L (0.4-2.0)
[2024-08-05 12:14] LABS: Basophils # (Auto) 0.1 Thou/mm3 (0.0-0.2); Basophils % (Auto) 0 % (0-2.5); Eosinophils # (Auto) 0.2 Thou/mm3 (0.0-0.5); Eosinophils % (Auto) 2 % (0-10); Hematocrit 25.8 % (36.0-46.0); Immature Granulocytes % (Auto) 1 % (0-0); Immature Granulocytes Auto 0.08 Thou/mm3 (0.00-0.00); Lymphocytes # (Auto) 2.5 Thou/mm3 (1.0-4.8); Lymphocytes % (Auto) 19 % (10-50); Mean Corpuscular HGB Conc 31.8 g/dl (31.0-37.0); Mean Corpuscular Hemoglobin 27.3 pg (25.0-35.0); Mean Corpuscular Volume 86 fL (80-100); Monocytes # (Auto) 0.7 Thou/mm3 (0.0-0.8); Monocytes % (Auto) 5 % (0-12); Neutrophils # (Auto) 9.9 Thou/mm3 (1.8-7.7); Neutrophils % (Auto) 73 % (37-80); Nucleated Red Blood Cell % 0 /100 WBC (0); Platelet Count 420 Thou/mm3 (140-440); RDW Standard Deviation 52.8 fL (36.4-46.3); White Blood Count 13.5 Thou/mm3 (3.6-11.0)
[2024-08-05 12:34] LABS: Hemoglobin 8.2 g/dL (12.0-16.0)
[2024-08-05 13:32] LABS: Albumin, Serum 3.2 gm/dL (3.5-5.0); Alkaline Phosphatase 120 U/L (46-116); Anion Gap 14 (7-16); Aspartate Amino Transferase 15 U/L (0-34); BUN/Creatinine Ratio 8 Ratio (12-20); Bilirubin,Total 0.2 mg/dL (0.3-1.2); Blood Urea Nitrogen 62 mg/dL (9-23); Calcium (Corrected) 7.1 mg/dL (8.5-10.1); Carbon Dioxide 17.5 mMol/L (20.0-31.0); Chloride 105 mMol/L (98-107); Creatinine (Component) 7.5 mg/dL (0.6-1.3); Estimated Creatinine Clearance 8.5 mL/min (>60); Globulin 3.2 gm/dL (2.3-3.5); Glucose 97 mg/dL (74-106); Lipase 89 U/L (12-53); Osmolality,Calculated 289 (275-295); Potassium 5.6 mMol/L (3.4-5.1); Procalcitonin 0.18 ng/ml (0.0-0.49); Sodium 136 mMol/L (136-145); Total Protein 6.4 gm/dL (5.7-8.2); eGFR 6 See Note
[2024-08-05 13:36] LABS: Calcium 6.5 mg/dL (8.3-10.6)
[2024-08-05 14:23] LABS: Alanine Aminotransferase < 7 U/L (10-49)
[2024-08-05 16:29] VITALS: BP 155/79; PULSE 82; RESP 16; TEMP 36.7; O2SAT 97
[2024-08-05 21:03] VITALS: BP 189/97; PULSE 90; RESP 16; TEMP 36.8; O2SAT 99
--- NOTE | 2024-08-05 21:43 | PD.EDRECHK ---
ED Recheck Abnl Lab Rx-RME/HPI General Chief Complaint: Recheck/Abnormal Lab/Rx Stated Complaint: ABNORMAL LABS, NEEDS IV ABX Time Seen by Provider: 08/05/24 10:55 Arrival date/time: 08/05/24 10:25 RME / HPI RME / HPI narrative: 08/05/24 10:25 44-year-old female presents emergency department for possible Vas-Cath infection or bladder infection was sent over by her tag machine operator for evaluation. I have greeted and performed a focused initial assessment of this patient. Initial appropriate labs ordered at this time. A comprehensive ED assessment and evaluation of the patient and analysis of all test and completion of medical decision making process will be conducted by additional ED provider. Dr. Jackson?s Main ED Evaluation: 44yo female with a history of asthma, chronic CVA, essential hypertension, insulin-dependent diabetes mellitus type 2, diabetic neuropathy, normocytic anemia, end-stage renal disease on hemodialysis via Located within [facility] M// presents to the ED after being sent over by her dialysis center. Patient states she had blood cultures done at her dialysis center last Friday. She states she was told by her dialysis center today that she was to not return to dialysis until she came in to the ED for evaluation regarding her abnormal blood cultures. She denies any fever, chills, N/V/D, cough, chest pain or any other associated symptoms. Direct Marketing Specialist is Dr. Livingston. Related Data Home Medications ?Medication ?Instructions ?Recorded ?Confirmed lorazepam 0.5 mg tablet 0.5 mg PO HS 04/01/24 05/18/24 amlodipine 5 mg tablet 5 mg PO DAILY 05/18/24 05/18/24 Previous Rx's ?Medication ?Instructions ?Recorded cyclobenzaprine 10 mg tablet 10 mg PO HS PRN muscle spasm #10 10/16/22 tabs nebulizer and compressor #1 ea 05/13/23 glucagon 3 mg/actuation nasal 3 mg intranasal QDAY PRN 04/12/24 spray (Baqsimi) hypoglycemia #1 ea insulin glargine 100 unit/mL (3 25 unit (0.25 mL) subcut QAM #15 mL 05/28/24 mL) subcutaneous pen (Basaglar KwikPen U-100 Insulin) pen needle, diabetic 32 gauge x #100 ea 05/28/24 (1st Tier Unifine Pentips) Allergies Allergy/AdvReac Type Severity Reaction Status Date / Time amoxicillin (From Augmentin) Allergy Severe Swelling Verified 08/05/24 10:28 of Lip/Tongue/Throat clavulanic acid (From Allergy Severe Swelling Verified 08/05/24 10:28 Augmentin) of Lip/Tongue/Throat Review of Systems Review of Systems Systems Reviewed: All systems reviewed, normal except as documented Past Medical History Past Medical History NEUROLOGIC: Negative Neurological Disorders, Cerebrovascular Accident, Transient Ischemic Attacks (TIA), Dementia, Alzheimer's Disease, Parkinson's Disease, Brain Tumor, Meningitis, Seizures, Epilepsy, Multiple Sclerosis, Cerebral Palsy, Amyotrophic Lateral Sclerosis (ALS/Autumn Gehrig's), Guillain-Mckean Syndrome, Spina Bifida, Paralysis, Peripheral Neuropathy, Espino's Palsy, Subdural Hematoma, Migraine, Head Trauma, Spinal Cord Injury or Traumatic Brain Injury CARDIAC: Positive Hypercholesterolemia, Cellulitis, Hypertension and Hypotension; Negative Cardiac Disorders, Myocardial Infarction, Cardiac Arrhythmia, Atrial Fibrillation, Angina, Heart Murmur, Coronary Artery Disease, Atherosclerotic Heart Disease, Peripheral Vascular Disease, Aneurysm, Congestive Heart Failure, Congenital Heart Disease, Valvular Heart Disease, Rheumatic Fever, Cardiomyopathy, Edema, Pericarditis, Deep Vein Thrombosis or Varicose Veins RESPIRATORY: Positive Asthma and Pneumonia; Negative Chronic Obstructive Pulmonary Disease (COPD), Bronchitis, Emphysema, Pulmonary Fibrosis, Cystic Fibrosis, Tuberculosis, Pulmonary Embolism, Pulmonary Edema or Sleep Apnea GASTROINTESTINAL: Negative Gastrointestinal Disorders, Hepatitis, Cirrhosis, Pancreatitis, Celiac Disease, Gall Bladder Disease, Gastrointestinal Bleed, Esophageal Varices, Gastelum's Esophagus, Colitis, Ulcerative Colitis, Diverticulitis, Diverticulosis, Ulcer, Colorectal Cancer, Irritable Bowel, Crohn's Disease, Obstructive Bowel, Hiatal Hernia, Hemorrhoids, Gastroesophageal Reflux Disease or Obesity GENITOURINARY: Positive Renal Disease and Dialysis (M W F); Negative Genitourinary Disorders, Kidney Stones, Polycystic Kidney Disease, Neurogenic Bladder, Inguinal Hernia or Prostate Cancer REPRODUCTIVE: Positive Previous Pregnancies; Negative Breast Cancer, Endometriosis, Genital Herpes, Gonorrhea, Pelvic Inflammatory Disease, Syphilis, Testicular Cancer or Uterine Prolapse MUSCULOSKELETAL: Positive Osteomyelitis; Negative Musculoskeletal Disorders, Muscular Dystrophy, Myasthenia Gravis, Marfan's Syndrome, Bone Cancer, Arthritis, Rheumatoid Arthritis, Osteoporosis, Degenerative Disk Disease, Gout, Scoliosis, Carpal Tunnel Syndrome, Fibromyalgia, Fractures, Degenerative Joint Disease or Poliovirus ENT: Positive Blind; Negative Cataracts, Glaucoma, Retinal Detachment, Macular Degeneration, Ear Infection, Deafness, Head Trauma or Eye Prosthesis ENDOCRINE: Positive Endocrine Disorders, Diabetes Mellitus Type 2 and Hypoglycemia; Negative Diabetes Mellitus Type 1, [place]'s Syndrome, Reginald's Disease, Hyperthyroidism, Hypothyroidism, Parathyroid Disease, Pituitary Disease, Systemic Lupus Erythematosus, Syndrome of Inappropriate Antidiuretic Hormone (SIADH), Adrenal Disease or Graves' Disease HEMATOLOGIC: Positive Anemia; Negative Blood Disorders, Leukemia, Hemophilia, Thalassemia, Sickle Cell Disease or Clotting Problems PSYCHO/SOCIAL: Positive Anxiety; Negative Psychiatric Problems, Schizophrenia, Recreational Drug Use, Bipolar Disorder, Depression, Behavior Problems, Self-Mutilation, Attention Deficit Disorder, Attention Deficit Hyperactivity Disorder, Depression, Post Traumatic Stress Disorder or Eating Disorder OTHER HISTORY: Positive Hospitalization, Falls (Last 05/15/2024), Blood Transfusions and Chicken Pox; Negative Autoimmune Disease, Down Syndrome, Autism, Developmental Delay, Shingles, Blood Transfusion Reaction, Anesthesia Reactions, Organ Transplant, Chemotherapy, Radiation Therapy, Hyperbaric Therapy, MRSA, VRSA, Vancomycin-Resistant Enterococci, Human Immunodeficiency Virus (HIV), Measles, Mumps, Rubella (Nigerien Measles), Pertussis, Clostridium Difficile, Cancer, Breast Cancer, Cervical Cancer, Colorectal Cancer, Lung Cancer, Ovarian Cancer, Prostate Cancer or Testicular Cancer Family History FAMILY HISTORY: Positive Family Respiratory Disorders and Family Cardiac Disorders; Negative Family Psychiatric Problems, Family Gastrointestinal Problems, Family Cancer, Family Surgery or Family Anesthesia Reaction Surgical History SURGICAL: Positive Abdominal Surgery and Amputation; Negative Cardiac Surgery, Open Heart Surgery, Coronary Artery Bypass Graft, Valve Replacement, Vascular Surgery, Coronary Stent, Cardiac Catheterization, Pacemaker, Angiogram, Auto Implanted Cardiovert Defib, Carotid Endarterectomy, Endocrine Surgery, Thyroidectomy, Ear Surgery, Tympanostomy Tube, Eye Surgery, Nose Surgery, Oral Surgery, Tonsillectomy, Adenoidectomy, Cochlear Implant, Corneal Transplant, Throat Surgery, Tracheostomy, Gastric Bypass Surgery, Gastrostomy, Bowel Surgery, Nephrectomy, Transurethral Resection, Joint Replacement, Open Reduction Internal Fixation, Arthroscopy, Neurologic Surgery, Brain Shunt, Mastectomy, Lumpectomy, Hysterectomy, Tubal Ligation, Section, Vasectomy or Organ Transplant Social History SMOKING STATUS: Former smoker SECOND HAND EXPOSURE: No SUBSTANCE USE: does not use ED Exam Narrative Physical exam: GENERAL APPEARANCE: alert and oriented x 4, well-developed, well-nourished, no acute distress VITALS: All vitals were reviewed and the pulse ox is 99% on room air, which is normal according to my interpretation. HEENT: Normocephalic, atraumatic; pupils equal, round, reactive to light; EOMI; mucous membranes pink, moist; oropharynx clear NECK: Supple LUNGS: CTABL; no wheezes, no rales, no rhonchi HEART: Regular rate, regular rhythm; normal S1, S2; no murmurs ABDOMEN: non distended; normal BS; soft, no tenderness, no guarding, no rebound; no masses, no organomegaly, no hernia BACK: no CVA tenderness EXTREMITIES: atraumatic; no edema NEUROLOGIC: awake; alert and oriented x4; cranial nerves II-XII grossly intact; no focal sensory or motor deficits PSYCHIATRIC: appropriate mood and affect SKIN: warm, dry, normal color; no rashes Course Quality Measures none Orders Category Date Time Status Blood Culture (Lab) Stat Lab 08/05/24 11:53 Received CBC Stat Lab 08/05/24 11:53 Completed Comprehensive Metabolic Panel Stat Lab 08/05/24 11:53 Completed HCG Qualitative,Urine Stat Lab 08/05/24 11:41 Ordered Lactate (Lactic Acid) Stat Lab 08/05/24 11:53 Completed Lipase Stat Lab 08/05/24 11:53 Completed Procalcitonin Stat Lab 08/05/24 11:53 Completed Vital Signs Vital signs: Vital Signs Temperature 98.0 F 08/05/24 11:14 Pulse Rate 95 08/05/24 11:14 Respiratory Rate 16 08/05/24 11:14 Blood Pressure 159/89 H 08/05/24 11:14 Pulse Oximetry (%) 96 08/05/24 11:14 Oxygen Delivery Method Room Air 08/05/24 11:14 Recheck / Abnormal Lab / Rx MDM Narrative MDM Narrative:: Scribe Attestation: 08/05/24 - Kristen Flores am scribing for and in the presence of Dr. Jackson. 2213: Discussed case with Dr. Livingston from nephrology regarding consultation. Discussed patients ED course, exam findings, labs, and radiology results. States he was informed by dialysis staff that the patient was ill and was ultimately sent to come in for evaluation. He wants the patient to be admitted for her dialysis catheter to be changed, and if the hospitalist does not want to admit the patient, then to document and discharge the patient after giving her antibiotics. Patient does not meet SIRS criteria at this time nor does she have medical complaints. I do not feel comfortable giving the patient antibiotics. 2221: Discussed case with Dr. Jiménez, attending Dr. Callaway from Hospitalist service regarding admission. Discussed patients ED course, exam findings, labs, and radiology results. The Hospitalist will evaluate the patient for admission. 2237: The hospitalist came and evaluated the patient, and does not feel the patient needs to be admitted. Patient data External records reviewed:: [facility] previous records (Per chart review, patient was admitted here on 05/18/24 for hypokalemia.) Clinical information provided by:: patient Social determinants that could affect healthcare access:: none Patient has the following chronic illnesses:: asthma, chronic CVA, essential hypertension, insulin-dependent diabetes mellitus type 2, diabetic neuropathy, normocytic anemia, end-stage renal disease on hemodialysis via Located within [facility] M/W/F How is presenting disease/condition affected by chronic disease/condition?: uneffected by Evaluation data The following diagnostics were reviewed and interpreted by me:: lab results Lab and/or radiology exams considered but not ordered:: none Interpretation Summary: WBC count is elevated at 13.5, HnH is 8.2/25.8, Potassium is 5.6, Calcium is low at 6.5, Lactic Acid is normal, Procalcitonin is normal, according to my interpretation. Medications / Prescriptions Medications or Prescriptions considered but not ordered:: none Medication administrations:: none Consultations Consultation(s) initiated? (list below): Yes Diagnosis Recheck Differential Diagnosis: other (sepsis, severe sepsis, septic shock, encounter for abnormal labs) Most likely diagnosis given after review of the tests above:: see clinical impression below Admission Indicated Admission indicated?: not indicated Admission Request Was there a request for admission?: No Disposition Plan Disposition Plan: Discharge Discharge Attestation Discharge Attestation: The patient and all family members were given an opportunity to ask questions and understood the discharge instructions. Discharge instructions specifically effects, indications for sooner follow up or return to the emergency department, and the expected course of current diagnosis. Patient condition: Stable Discharge Plan Plan Patient Disposition: HOME (Self Care) Disposition Comment: Stable for discharge home Patient condition on transfer: Stable Prescriptions/Referrals Prescriptions/Med Rec: No Action cyclobenzaprine 10 mg tablet 10 mg PO HS PRN (Reason: muscle spasm) Qty: 10 0RF (DME) nebulizer and compressor Device See Rx Instructions .Route Qty: 1 0RF Rx Instructions: As directed lorazepam 0.5 mg tablet 0.5 mg PO HS Patient Comments: TAKE 1 TABLET BY MOUTH EVERY EVENING Baqsimi 3 mg/actuation spray,non-aerosol 3 mg intranasal QDAY PRN (Reason: hypoglycemia) Qty: 1 0RF amlodipine 5 mg tablet 5 mg PO DAILY Patient Comments: TAKE 1 TABLET BY MOUTH DAILY FOR BLOOD PRESSURE insulin glargine [Basaglar KwikPen U-100 Insulin] 100 unit/mL (3 mL) insulin pen 25 unit subcut QAM Qty: 15 0RF (DME) pen needle, diabetic [1st Tier Unifine Pentips] 32 gauge x 5/32 needle See Rx Instructions .Route Qty: 100 0RF Rx Instructions: As directed Referrals: Bala Livingston MD [Physician] - In 1 week Khadijah Veronica PA-C [Primary Care Provider] - In 1 week Problem List Clinical Impression: Blood bacterial culture positive Patient/Caregiver Discharge Instructions Discharge Activity: activity as tolerated Education Materials: ED Chronic Kidney Disease (CKD) Additional Instructions: Please return to the emergency department if you have any worsening or any further medical problems. Otherwise you should follow-up with your primary care doctor within the next several days. You should call the dialysis center and let them know that you came to the emergency department. You should get dialysis tomorrow. Print Language: Grenadian Stand Alone Forms: Hannah Award Info., Patient Portal Info Letter
--- NOTE | 2024-08-05 22:44 | PD.RESEVENT ---
Documentation for date of: 08/05/24 Event Note Event Note: The patient is a 44-year-old female with significant past medical history of asthma, chronic CVA, essential hypertension, IDDM type II, diabetic neuropathy, normocytic anemia, ESRD on hemodialysis via [facility] presented to ED after being found to have 1 of 2 bottles blood culture positive for GPC, but no specification were finalized. The patient reported that she initially had flulike syndrome, with chills and cough, but never had any fever, headache, nausea or vomiting, chest pain, SOB, abdominal pain, or any leg swelling. Blood cultures were obtained, and was recommended to follow-up with blood culture specification results, explained to the patient in detail if the blood cultures come back positive for Staphylococcus aureus, she may need to have further evaluation to decide on line removal and course of IV antibiotics. Currently, the patient seems asymptomatic, blood culture is only positive on 1 bottle, possibility of contamination remains high. Discussed with ED physician, agreed patient does not meet inpatient criteria. The patient's management plan was discussed with my attending physician MD Moises Martinez MD, PGY2
== END 2024-08-05 22:47 | disposition home or self-care (01) ==
PROVIDERS: Nurse Practitioner Primary Care; Emergency Provider Emergency Medicine; PCP Physician Assistant
DX: R78.81 Bacteremia (principal); E11.22 Type 2 diabetes mellitus with diabetic chronic kidney disease; I12.0 Hypertensive chronic kidney disease with stage 5 chronic kidney disease or end stage renal disease; N18.6 End stage renal disease; Z99.2 Dependence on renal dialysis; J45.909 Unspecified asthma, uncomplicated; D63.1 Anemia in chronic kidney disease; E11.40 Type 2 diabetes mellitus with diabetic neuropathy, unspecified; Z86.73 Personal history of transient ischemic attack (TIA), and cerebral infarction without residual deficits
CPT/HCPCS: 36415; 80053; 81025; 83605; 83690; 84145; 85025; 87040; 87077; 87186; 99283

== ENCOUNTER 2024-11-03 05:55 | Emergency (ER) | payer MEDICAID, SELFPAY ==
[2024-11-03 05:56] VITALS: BP 173/104; PULSE 90; RESP 17; TEMP 36.6; O2SAT 96
--- NOTE | 2024-11-03 06:24 | PD.EDRME ---
Rapid Medical Screening Exam RME Arrival date/time: 11/03/24 05:55 44-year-old female with a history of hypertension, type 2 diabetes, end-stage renal disease on dialysis Fridays, presents to the emergency room with a chief complaint of weakness, vomiting x 2 days I have greeted and performed a focused initial assessment of this patient. A comprehensive ED assessment and evaluation of the patient, analysis of all test results, and completion of the medical decision making process will be conducted by additional ED providers. Chief Complaint: Nausea/Vomiting/Diarrhea Time Seen by Provider: 11/03/24 06:10 Vital signs: Vital Signs Temperature 97.9 F 11/03/24 05:56 Pulse Rate 90 11/03/24 05:56 Respiratory Rate 17 11/03/24 05:56 Blood Pressure 173/104 H 11/03/24 05:56 Pulse Oximetry (%) 96 11/03/24 05:56 Oxygen Delivery Method Room Air 11/03/24 05:56 Vital signs reviewed by provider: Yes
[2024-11-03 06:51] LABS: Basophils # (Auto) 0.1 Thou/mm3 (0.0-0.2); Basophils % (Auto) 1 % (0-2.5); Eosinophils # (Auto) 0.2 Thou/mm3 (0.0-0.5); Eosinophils % (Auto) 2 % (0-10); Hematocrit 34.7 % (36.0-46.0); Hemoglobin 10.8 g/dL (12.0-16.0); Immature Granulocytes Auto 0.03 Thou/mm3 (0.00-0.00); Lymphocytes # (Auto) 2.8 Thou/mm3 (1.0-4.8); Lymphocytes % (Auto) 29 % (10-50); Mean Corpuscular HGB Conc 31.1 g/dl (31.0-37.0); Mean Corpuscular Hemoglobin 26.3 pg (25.0-35.0); Mean Corpuscular Volume 85 fL (80-100); Monocytes # (Auto) 0.6 Thou/mm3 (0.0-0.8); Monocytes % (Auto) 6 % (0-12); Neutrophils # (Auto) 6.0 Thou/mm3 (1.8-7.7); Neutrophils % (Auto) 62 % (37-80); Nucleated Red Blood Cell # 0.00 Thou/mm3 (0.00-0.00); Nucleated Red Blood Cell % 0 /100 WBC (0); Platelet Count 377 Thou/mm3 (140-440); RDW Standard Deviation 52.0 fL (36.4-46.3); Red Blood Count 4.10 Miln/mm3 (4.00-5.20); White Blood Count 9.7 Thou/mm3 (3.6-11.0)
[2024-11-03 07:04] LABS: Collection Type, Urine Clean Catch
[2024-11-03 07:10] LABS: HCG Qualitative,Urine Negative
[2024-11-03 07:11] LABS: Bilirubin,Urine Negative (Negative); Blood,Urine Trace (Negative); Clarity,Urine Clear (Clear/Hazy); Color,Urine Yellow (Lt Yel-Yel); Glucose, Urine 3+ (Negative); Ketones,Urine Trace (Negative); Leukocyte Esterase,Urine Negative (Negative); Nitrite,Urine Negative (Negative); PH,Urine 8.5 (5.0-7.0); Protein,Urine 3+ (Neg - Trace); RBC,Urine 5 /hpf (0-3); Specific Gravity,Urine 1.022 (1.001-1.035); Squamous Epithelial Cell,Urine 5 /hpf (0-5); Urobilinogen,Urine Negative mg/dL (0.0-1.0); WBC,Urine 11 /hpf (0-5)
[2024-11-03] MEDS: ONDANSETRON ODT 4 MG TABRAP PO (07:23)
[2024-11-03 07:32] LABS: Alanine Aminotransferase < 7 U/L (10-49); Albumin, Serum 3.7 gm/dL (3.5-5.0); Albumin/Globulin Ratio 1.2 (1.2-2.2); Alkaline Phosphatase 91 U/L (46-116); Anion Gap 4 (7-16); Aspartate Amino Transferase 11 U/L (0-34); BUN/Creatinine Ratio 4 Ratio (12-20); Bilirubin,Total 0.9 mg/dL (0.3-1.2); Blood Urea Nitrogen 21 mg/dL (9-23); Calcium 9.0 mg/dL (8.3-10.6); Calcium (Corrected) 9.2 mg/dL (8.5-10.1); Carbon Dioxide 30.1 mMol/L (20.0-31.0); Chloride 102 mMol/L (98-107); Creatinine (Component) 5.6 mg/dL (0.6-1.3); Globulin 3.2 gm/dL (2.3-3.5); Glucose 163 mg/dL (74-106); Lipase 23 U/L (12-53); Osmolality,Calculated 278 (275-295); Potassium 5.6 mMol/L (3.4-5.1); Sodium 136 mMol/L (136-145); Total Protein 6.9 gm/dL (5.7-8.2); eGFR 9 See Note
--- NOTE | 2024-11-03 07:39 | EKG_ITS ---
[facility] Test Date: 2024-11-03 Pat Name: ELVIA FLORES Department: Room: - Gender: Female Rn Hemodialysis Charge: : 1980 Requested By: Myles Holbrook Order Number: [id number] Reading MD: Myles Holbrook Measurements Intervals [place] Rate: 92 P: 40 ND: 142 QRS: 58 QRSD: 86 T: 102 QT: 386 QTc: 479 Interpretive Statements SINUS RHYTHM POSSIBLE ANTERIOR MYOCARDIAL INFARCTION , OF INDETERMINATE AGE [30 ms Q WAVE IN V3/V4, OR R < 0.2 mV IN V4] Compared to ECG 05/18/2024 11:50:42 Myocardial infarct finding now present Sinus tachycardia no longer present /store/S0/[id number]/ecg/[id number].pdf
[2024-11-03 08:04] VITALS: BP 174/102; PULSE 92; RESP 16; TEMP 36.9; O2SAT 95
[2024-11-03 08:48] VITALS: BMI 25.2
--- NOTE | 2024-11-03 09:00 | EDNOTE_ITS ---
<Statement entered by Daksha Collins MD - 11/12/24 19:28> As co-signing physician, I was present and available for consult prn. I concur with the plan and care as documented by the midlevel provider. Nausea/Vomit./Diarrhea-RME/HPI General Chief complaint: Nausea/Vomiting/Diarrhea Stated complaint: VOMITING, WEAK Time Seen by Provider: 11/03/24 06:10 Arrival date/time: 11/03/24 05:55 RME / HPI RME / HPI Narrative: 11/03/24 05:55 44-year-old female with a history of hypertension, type 2 diabetes, end-stage renal disease on dialysis Fridays, presents to the emergency room with a chief complaint of weakness, vomiting x 2 days I have greeted and performed a focused initial assessment of this patient. A comprehensive ED assessment and evaluation of the patient, analysis of all test results, and completion of the medical decision making process will be conducted by additional ED providers. DR. COLLINS MAIN ED EVALUATION 44 year old female patient with history of CVA, hypertension, diabetes, diabetic neuropathy, anemia, ESRD on HD M/W/F, and asthma presents to the ED for evaluation of nausea, vomiting, and diarrhea beginning 2 days ago. Reports she has not been able to tolerate anything by mouth. Additionally complains of feeling globally weak and I just don't feel good . Denies any bloody or black colored stools. Denies missing any dialysis treatments. Denies fever, chills, sweating. Denies chest pain, cough, shortness of breath. Patient additionally reports she recently underwent dialysis fistula placement in the left upper extremity and was due to begin dialysis treatments through the fistula today. Patient mentioned during her follow up appointment with vascular surgeon Dr. Vallejo several days ago, there was a sore with surrounding redness to fistula site that was cultured and currently pending results. Related Data Home Medications ?Medication ?Instructions ?Recorded ?Confirmed lorazepam 0.5 mg tablet 0.5 mg PO HS 04/01/24 amlodipine 5 mg tablet 5 mg PO DAILY 05/18/2405/18 Previous Rx's ?Medication ?Instructions ?Recorded cyclobenzaprine 10 mg tablet 10 mg PO HS PRN muscle sp asm #10 10/16/22 tabs nebulizer and compressor #1 ea 05/13/23 glucagon 3 mg/actuation nasal 3 mg intranasal QDAY PRN 04/12/24 spray (Baqsimi) hypoglycemia #1 ea insulin glargine 100 unit/mL (3 25 unit (0.25 mL) subc ut QAM #15 mL 05/28/24 mL) subcutaneous pen (Basaglar KwikPen U-100 Insulin) pen needle, diabetic 32 gauge x #100 ea 05/28/2432 (1st Tier Unifine Pentips) cephalexin 500 mg capsule 500 mg PO TID #21 caps 11/03 Allergies Allergy/AdvReac Type Severity Reaction Status Date / Time amoxicillin (From Augmentin) Allergy Severe Swelling Verified 11/03/24 05:56 of Lip/Tongue/Throat clavulanic acid (From Allergy Severe Swelling Verified 11/03/24 05:56 Augmentin) of Lip/Tongue/Throat Review of Systems Review of Systems Systems Reviewed: All systems reviewed, normal except as documented Past Medical History Past Medical History CARDIAC: Positive Hypercholesterolemia, Cellulitis, Hypertension and Hypotension RESPIRATORY: Positive Asthma and Pneumonia GENITOURINARY: Positive Renal Disease and Dialysis REPRODUCTIVE: Positive Previous Pregnancies MUSCULOSKELETAL: Positive Osteomyelitis ENT: Positive Blind (RIGHT EYE) ENDOCRINE: Positive Endocrine Disorders, Diabetes Mellitus Type 2 and Hypoglycemia HEMATOLOGIC: Positive Anemia PSYCHO/SOCIAL: Positive Anxiety OTHER HISTORY: Positive Hospitalization, Falls, Blood Transfusions and Chicken Pox Family History FAMILY HISTORY: Positive Family Respiratory Disorders and Family Cardiac Disorders; Negative Family Psychiatric Problems, Family Gastrointestinal Problems, Family Cancer, Family Surgery or Family Anesthesia Reaction Surgical History SURGICAL: Positive Abdominal Surgery and Amputation (left AKA /right second toe amp); Negative Cardiac Surgery, Open Heart Surgery, Coronary Artery Bypass Graft, Valve Replacement, Vascular Surgery, Coronary Stent, Cardiac Catheterization, P acemaker, Angiogram, Auto Implanted Cardiovert Defib, Carotid Endarterectomy, Endocrine Surgery, Thyroidectomy, Ear Surgery, Tympanostomy Tube, Eye Surgery, Nose Surgery, Oral Surgery, Tonsillectomy, Adenoidectomy, Cochlear Implant, Corneal Transplant, Throat Surgery, Tracheostomy, Gastric Bypass Surgery, Gastrostomy, Bowel Surgery, Nephrectomy, Transurethral Resection, Joint Replacement, Open Reduction Internal Fixation, Arthroscopy, Neurologic Surgery, Brain Shunt, Mastectomy, Lumpectomy, Hysterectomy, Tubal Ligation, Section or Vasectomy Social History SMOKING STATUS: Never smoker SECOND HAND EXPOSURE: No SUBSTANCE USE: does not use ED Exam Narrative Physical exam: GENERAL APPEARANCE: alert and oriented x 4, well-developed, well-nourished, no acute distress HEENT: Normocephalic, atraumatic; pupils equal, round, reactive to light; EOMI; mucous membranes pink, moist; oropharynx clear NECK: Supple LUNGS: CTABL; no wheezes, no rales, no rhonchi HEART: Regular rate, regular rhythm; normal S1, S2; no murmurs ABDOMEN: mildly distended; active BS; soft, no tenderness, no guarding, no rebound; no masses, no organomegaly, no hernia BACK: no CVA tenderness EXTREMITIES: Left arm fistula with +thrill and increased warmth and surrounding erythema; atraumatic; no edema NEUROLOGIC: awake; alert and oriented x4; cranial nerves II-XII grossly intact; no focal sensory or motor deficits PSYCHIATRIC: appropriate mood and affect SKIN: warm, dry, normal color; no rashes Course Quality Measures none Orders Category Date Time Status EKG (ED ONLY) *Do not use* NOW Care 11/03/24 07:39 Completed Insert IV NOW Care 11/03/24 08:[address] abdomen pelvis wo con Stat Exams 11/03/24 09:10 Completed EKG (ED Only) Stat Exams 11/03/24 07:39 Draft Blood Culture (Lab) Stat Lab 11/03/24 10:30 Received CBC Stat Lab 11/03/24 06:28 Completed CMP [Comprehensive Metabolic Panel] Stat Lab 11/03/24 06:28 Completed HCG Qualitative,Urine Stat Lab 11/03/24 06:55 Completed Lactate (Lactic Acid) Stat Lab 11/03/24 10:30 Completed Lipase Stat Lab 11/03/24 06:28 Completed Procalcitonin Stat Lab 11/03/24 10:30 Completed UA [Urinalysis] Stat Lab 11/03/24 06:55 Completed Urine Culture Stat Lab 11/03/24 06:55 Received Calcium Gluconate 10% Inj Med 11/03/24 09:09 Discontinued 1 gm IV X1 ONE Ondansetron Inj [Zofran Inj] Med 11/03/24 09:09 Discontinued 4 mg IVP X1 ONE Ondansetron Odt [Zofran Odt] Med 11/03/24 06:23 Discontinued 4 mg PO X1 ONE Sod Polystyrene Sulfon Susp [Kayexalate Susp] Med 11/03/24 11:54 Discontinued 30 gm PO X1 ONE cefTRIAXone/D5w 1gm IV premix [Rocephin/D5w 1gm IV Med 11/03/24 11:26 Discontinued premix] 1 gm in 50 ml IV X1 Reevaluation(s) Reevaluation #1: Patient tolerated po trial. Time: 12:12 Vital Signs Vital signs: Vital Signs Temperature 97.9 F 11/03/24 05:56 Pulse Rate 90 11/03/24 05:56 Respiratory Rate 17 11/03/24 05:56 Blood Pressure 173/104 H 11/03/24 05:56 Pulse Oximetry (%) 96 11/03/24 05:56 Oxygen Delivery Method Room Air 11/03/24 05:56 Pulse ox is 96% on room air which is adequate. Nausea/Vomiting/Diarrhea MDM Narrative MDM Narrative:: Anahy Flores am scribing for and in the presence of Dr. Collins. Patient data External records reviewed:: [facility] previous records (I reviewed ED visit on 08/05/2024 ) Clinical information provided by:: patient Social determinants that could affect healthcare access:: none Patient has the following chronic illnesses:: CVA, hypertension, diabetes, diabetic neuropathy, anemia, ESRD on HD M/W/F, and asthma How is presenting disease/condition affected by chronic disease/condition?: exacerbated by Evaluation data The following diagnostics were reviewed and interpreted by me:: lab results, radiology exam(s) and EKG tracing(s) (11/03/2024 @ 08:00 AM. Sinus rhythm, rate 92, no STEMI. ) Lab and/or radiology exams considered but not ordered:: None Interpretation Summary: Ordering Physician: Daksha Collins MD Date of Service: 11/03/24 Procedure(s): CT abdomen pelvis wo con Accession Number(s): [id number] cc: Julien Hernandez MD; Daksha Collins MD; Khadijah Veronica PA-C~ Examination: CT abdomen and pelvis without contrast. Coronal 3-D reconstructions. Sagittal 2-D reconstructions. Date and time of exam:November 03, 2024 0917 hours INDICATIONS: Vomiting abdominal pain today CTDI: vol (mGy): 7.64 DLP: (mGycm): 435 Technique: Axial images of the abdomen have been obtained, 3 mm slice thickness Intravenous contrast material has not been administered. Low dose protocols were performed. One or more of the following dose reduction techniques were used; automated exposure control, adjustment of the mA and/or KV according to patient size, use of iterative reconstruction technique. Findings: Enlarged cardiac contour with vascular congestion and edema at the lung bases moderate right mild left pleural fluid Liver mildly irregular in contour Absent gallbladder Spleen not enlarged No pancreatic mass Renal arterial calcifications Perinephric stranding No hydronephrosis Aorta normal size. Normal appendix No bowel obstruction Anteverted uterus Urinary bladder wall thickening up to 6 mm Moderate disc narrowing L4-L5 IMPRESSION: Heart failure pattern, recommend PA lateral chest follow-up Primary hepatocellular disease Perinephric stranding, consider urinary tract infection Urinary bladder wall thickening up to 6 mm, cystitis pattern Normal appendix No bowel obstruction Dictated By: Julien Hernandez MD Signed By: <Electronically signed by Julien Hernandez MD in OV> 11/03/24 1008 Medications / Prescriptions Medications / Prescriptions considered but not ordered:: None Medication administrations:: Medication Administration History Discontinued Medications Calcium Gluconate (Calcium Gluconate 10% Inj 1 Gm/10 Ml Vial) 1 gm IV X1 ONE Stop: 11/03/24 09:10 Last Admin: 11/03/24 09:30 Dose: 1 gm Documented By: AWA Ceftriaxone Sodium/Dextrose (Rocephin/D5w 1gm Iv Premix) 1 gm in 50 mls @ 100 mls/hr IV X1 ONE Stop: 11/03/24 11:55 Last Infusion: 11/03/24 12:10 Dose: Infused Documented By: Admin: 11/03/24 11:43 Dose: 100 mls/hr Documented By: AWA Ondansetron HCl (Ondansetron Odt 4 Mg Tabrap) 4 mg PO X1 ONE; Protocol Stop: 11/03/24 06:24 Last Admin: 11/03/24 07:23 Dose: 4 mg Documented By: GM Ondansetron HCl (Ondansetron Inj 2 Mg/Ml Inj 2 Ml) 4 mg IVP X1 ONE; Protocol Stop: 11/03/24 09:10 Last Admin: 11/03/24 09:29 Dose: 4 mg Documented By: AWA Sodium Polystyrene Sulfonate (Sod Polystyrene Sulfon Susp 15 Gm/60 Ml Btl) 30 gm PO X1 ONE Stop: 11/03/24 11:55 Last Admin: 11/03/24 12:20 Dose: 30 gm Documented By: DB See above Consultations Consultation(s) initiated? (list below): No Diagnosis Nausea Differential Diagnosis: gastroenteritis, drug-induced nausea and vomiting and dehydration Most likely diagnosis given after review of the tests above:: Vomiting Hyperkalemia Cellulitis Admission Indicated Admission indicated?: not indicated Admission Request Was there a request for admission?: No Disposition Plan Disposition Plan: Discharge Discharge Attestation Discharge Attestation: The patient and all family members were given an opportunity to ask questions and understood the discharge instructions. Discharge instructions specifically effects, indications for sooner follow up or return to the emergency department, and the expected course of current diagnosis. Patient condition: Stable Discharge Plan Plan Patient Disposition: HOME (Self Care) Prescriptions/Referrals Prescriptions/Med Rec: New cephalexin 500 mg capsule 500 mg PO TID Qty: 21 0RF No Action cyclobenzaprine 10 mg tablet 10 mg PO HS PRN (Reason: muscle spasm) Qty: 10 0RF (DME) nebulizer and compressor Device See Rx Instructions .Route Qty: 1 0RF Rx Instructions: As directed lorazepam 0.5 mg tablet 0.5 mg PO HS Patient Comments: TAKE 1 TABLET BY MOUTH EVERY EVENING Baqsimi 3 mg/actuation spray,non-aerosol 3 mg intranasal QDAY PRN (Reason: hypoglycemia) Qty: 1 0RF amlodipine 5 mg tablet 5 mg PO DAILY Patient Comments: TAKE 1 TABLET BY MOUTH DAILY FOR BLOOD PRESSURE insulin glargine [Basaglar KwikPen U-100 Insulin] 100 unit/mL (3 mL) insulin pen 25 unit subcut QAM Qty: 15 0RF (DME) pen needle, diabetic [1st Tier Unifine Pentips] 32 gauge x 5/32 needle See Rx Instructions .Route Qty: 100 0RF Rx Instructions: As directed Referrals: Khadijah Veronica PA-C [Primary Care Provider] - In 1 week Problem List Clinical Impression: Vomiting, Hyperkalemia, Cellulitis Patient/Caregiver Discharge Instructions Education Materials: ED Cellulitis, ED Vomiting and Diarrhea ... Print Language: Sami Stand Alone Forms: Hannah Award Info., Patient Portal Info Letter
--- NOTE | 2024-11-03 09:10 | XR_ITS ---
Examination: CT abdomen and pelvis without contrast. Coronal 3-D reconstructions. Sagittal 2-D reconstructions. Date and time of exam:November 03, 2024 0917 hours INDICATIONS: Vomiting abdominal pain today CTDI: vol (mGy): 7.64 DLP: (mGycm): 435 Technique: Axial images of the abdomen have been obtained, 3 mm slice thickness Intravenous contrast material has not been administered. Low dose protocols were performed. One or more of the following dose reduction techniques were used; automated exposure control, adjustment of the mA and/or KV according to patient size, use of iterative reconstruction technique. Findings: Enlarged cardiac contour with vascular congestion and edema at the lung bases moderate right mild left pleural fluid Liver mildly irregular in contour Absent gallbladder Spleen not enlarged No pancreatic mass Renal arterial calcifications Perinephric stranding No hydronephrosis Aorta normal size. Normal appendix No bowel obstruction Anteverted uterus Urinary bladder wall thickening up to 6 mm Moderate disc narrowing L4-L5 IMPRESSION: Heart failure pattern, recommend PA lateral chest follow-up Primary hepatocellular disease Perinephric stranding, consider urinary tract infection Urinary bladder wall thickening up to 6 mm, cystitis pattern Normal appendix No bowel obstruction
[2024-11-03] MEDS: ONDANSETRON INJ 2 MG/ML INJ 2 ML 4 MG IVP (09:29)
[2024-11-03] MEDS: CALCIUM GLUCONATE 10% INJ 1 GM/10 ML VIAL IV (09:30)
[2024-11-03 10:10] VITALS: BP 176/109; PULSE 91; RESP 15; TEMP 36.9; O2SAT 96
[2024-11-03 10:45] LABS: Lactate (Lactic Acid) 1.0 mMol/L (0.4-2.0)
[2024-11-03 11:15] LABS: Procalcitonin 0.30 ng/ml (0.0-0.49)
[2024-11-03] MEDS: cefTRIAXone/D5w 1gm IV premix 1 GM/50 ML BAG IV (11:43)
[2024-11-03 12:14] VITALS: BP 171/103; PULSE 92; RESP 16; TEMP 36.7; O2SAT 95
[2024-11-03] MEDS: SOD POLYSTYRENE SULFON SUSP 15 GM/60 ML BTL 30 GM PO (12:20)
[2024-11-03 14:01] VITALS: BP 162/104; PULSE 79; RESP 16; TEMP 36.7; O2SAT 93
== END 2024-11-03 14:02 | disposition home or self-care (01) ==
PROVIDERS: Nurse Practitioner Family; Emergency Provider Emergency Medicine; PCP Physician Assistant
DX: E87.5 Hyperkalemia (principal); L03.114 Cellulitis of left upper limb; N32.89 Other specified disorders of bladder; K76.9 Liver disease, unspecified; R94.31 Abnormal electrocardiogram [ECG] [EKG]
CPT/HCPCS: 36415; 74176; 80053; 81001; 81025; 83605; 83690; 84145; 85025; 87040; 87077; 87086; 87186; 96365; 96375; 99284; J0612; J0696; J2405; Q0162; A9270

== ENCOUNTER 2024-11-10 09:26 | Emergency (ER) | payer MEDICAID, SELFPAY ==
[2024-11-10] VITALS (25 sets, daily range): BP systolic 134–198; BP diastolic 74–114; PULSE 87–102; RESP 14–24; TEMP 36.6–37.1; O2SAT 92–100; BMI 30.8
--- NOTE | 2024-11-10 09:48 | EDNOTE_ITS ---
ED General RME/HPI General Chief complaint: General Adult/Misc Complain Stated complaint: BODY ACHES Time Seen by Provider: 11/10/24 09:49 Arrival date/time: 11/10/24 09:26 RME / HPI RME / HPI narrative: DR. BOYLE MAIN ED EVALUATION: 44 year old female presents to the Emergency Department [facility] with complaints of acute neck and thoracic pain with no obvious etiology other than possible muscle spasms or tenderness. Radiation to her mid back pain, right worse than left. Onset of symptoms 2 PM yesterday. She has left arm swelling from recent swelling. Denies any fevers or chills, cough, bleeding, or any other symptoms at this time. PMHx: Renal disease, on dialysis since 03/2024. Recent fistula placed on 10/20/2024. Left BKA 6 years ago. Diabetes, right foot chronic diabetic ulcer. Social Hx: No tobacco, alcohol, or substance use. Related Data Home Medications ?Medication ?Instructions ?Recorded ?Confirmed lorazepam 0.5 mg tablet 0.5 mg PO HS 04/01/24 amlodipine 5 mg tablet 5 mg PO DAILY 05/18/2405/18 Previous Rx's ?Medication ?Instructions ?Recorded cyclobenzaprine 10 mg tablet 10 mg PO HS PRN muscle sp asm #10 10/16/22 tabs nebulizer and compressor #1 ea 05/13/23 glucagon 3 mg/actuation nasal 3 mg intranasal QDAY PRN 04/12/24 spray (Baqsimi) hypoglycemia #1 ea insulin glargine 100 unit/mL (3 25 unit (0.25 mL) subc ut QAM #15 mL 05/28/24 mL) subcutaneous pen (Basaglar KwikPen U-100 Insulin) pen needle, diabetic 32 gauge x #100 ea 05/28/24 (1st Tier Unifine Pentips) cephalexin 500 mg capsule 500 mg PO TID #21 caps 11/03 ondansetron 4 mg disintegrating 4 mg PO Q8H PRN nausea and 11/03/24 tablet vomiting #14 tabs Allergies Allergy/AdvReac Type Severity Reaction Status Date / Time amoxicillin (From Augmentin) Allergy Severe Swelling Verified 11/03/24 05:56 of Lip/Tongue/Throat clavulanic acid (From Allergy Severe Swelling Verified 11/03/24 05:56 Augmentin) of Lip/Tongue/Throat Review of Systems Review of Systems Systems Reviewed: All systems reviewed, normal except as documented Past Medical History Past Medical History CARDIAC: Positive Hypercholesterolemia, Cellulitis, Hypertension and Hypotension RESPIRATORY: Positive Asthma and Pneumonia GENITOURINARY: Positive Renal Disease and Dialysis (3 times a week) REPRODUCTIVE: Positive Previous Pregnancies MUSCULOSKELETAL: Positive Osteomyelitis ENT: Positive Blind (right eye) ENDOCRINE: Positive Endocrine Disorders, Diabetes Mellitus Type 2 and Hypoglycemia HEMATOLOGIC: Positive Anemia PSYCHO/SOCIAL: Positive Anxiety OTHER HISTORY: Positive Hospitalization, Falls, Blood Transfusions and Chicken Pox Family History FAMILY HISTORY: Positive Family Respiratory Disorders and Family Cardiac Disorders Surgical History SURGICAL: Positive Abdominal Surgery and Amputation Social History SMOKING STATUS: Current some day smoker SECOND HAND EXPOSURE: No SUBSTANCE USE: does not use ED Exam Narrative Physical exam: Physical Exam: General: The vital signs were reviewed. The patient appears to be uncomfortable complaining of neck pain. Left arm has a healing scar that is 3 weeks old with some edema and swelling in the arm. See extremities for more details the patient is non-toxic, in no apparent distress and appears healthy with a patent airway, no respiratory distress and has no apparent circulatory problems. Head & Scalp: Normocephalic, atraumatic. Face: Appears normal and is without lesions, deformity. Ears: Left external pinna appears normal. Right external pinna appears normal. Eyes: The sclera is anicteric. No obvious photophobia. The Left and Right Orbit/Lid/Conjunctiva appears normal without swelling, discoloration or injection. Nose: The nose is without deformity, discharge or tenderness; Throat: Appears normal. The mucous membranes are pink and moist without exudates, redness or mass seen. The tongue appears normal. Neck: The neck is supple and no apparent mass or adenopathy. Chest: The chest wall is normal in size and symmetry and has no chest wall tenderness or crepitus. The patient displays normal ventilator effort without retractions, accessory muscle use and has adequate air movement bilaterally with no wheezes and no rales. Cardiovascular: Regular rate and rhythm; No murmurs, rubs, or gallops; Gastrointestinal: The abdomen appears normal. No obvious hernias or mass. The abdomen is soft and benign, non-distended, with no pain, no guarding and no rebound tenderness. Bowel sounds are present and normal sounding. No CVA tenderness. Genitourinary: Back/Spine: Inspection of the neck thoracic and lumbar spine appear normal. There is no ecchymosis there is no tenderness on palpation. The neck has tenderness on palpation of the right trapezius and rhomboid areas suggesting muscular origin of her neck discomfort. She is got limited range of motion due to neck pain. Which appears to be muscular in origin. Extremities/Musculoskeletal/lymphatic: The bilateral upper and right lower extremities are warm. There is scarring on the right Achilles area from an old wound. There is eschar on the base of the great toe which patient reports is improving. She is evidently doing some dressing changes. There is no erythema no lymphangitis and no purulent discharge seen. The left lower extremity is missing by amputation. With a stump that is well-healed. There is no evidence of arterial insufficiency. There is no evidence of venous insufficiency/edema. The patient spontaneously moves bilateral upper and lower extremities with no pain and no limitation of movement. There is no apparent acute injury or trauma. Skin: The skin is warm, dry and intact. No rashes. No petechia. No purpura. No abnormal bruising. The color is appropriate with no cyanosis. Mental status/Psychiatric: Mental status is appropriate for age. The patient has no apparent delusions, visual hallucinations, no apparent audible hallucinations. The patient has no apparent suicidal thoughts/ideation and no apparent homicidal thoughts/ideation. Neurological: The patient is awake, alert, interactive, cordial, cooperative and is oriented to name and situation. The patient follows commands and answers historical question with no impairment. There is no visual disturbance apparent. The pupils are equal and reactive bilaterally with normal eye movements and no diplopia The bilateral upper and lower extremities have normal strength, normal range of motion and normal functioning. The gait, station and balance are unable to tested due to previous amputation of the left leg. Course Quality Measures none Orders Category Date Time Status Bedside Blood Glucose NOW Care 11/10/24 09:52 Active EKG (ED ONLY) *Do not use* NOW Care 11/10/24 09:52 Completed Hemodialysis Urgent Care 11/10/24 15:06 Active Insert IV NOW Care 11/10/24 10:[address] cervical spine wo con Stat Exams 11/10/24 09:[address] head/brain wo con Stat Exams 11/10/24 09:[address] thoracic spine wo con Stat Exams 11/10/24 09:52 Completed EKG (ED Only) Stat Exams 11/10/24 09:52 Draft US venous doppler UE LT Stat Exams 11/10/24 10:04 Completed XR chest 1V portable Stat Exams 11/10/24 09:52 Completed Alcohol, Blood Medical Stat Lab 11/10/24 10:18 Completed Ammonia Stat Lab 11/10/24 10:18 Completed B-Type Natriuretic Peptide Stat Lab 11/10/24 10:18 Completed Blood Culture (Lab) Stat Lab 11/10/24 10:18 Received CBC Stat Lab 11/10/24 10:18 Completed Comprehensive Metabolic Panel Stat Lab 11/10/24 10:18 Completed HCG,Qualitative Serum Stat Lab 11/10/24 10:18 Completed Lactate (Lactic Acid) Stat Lab 11/10/24 10:18 Completed Procalcitonin Stat Lab 11/10/24 10:18 Completed Prothrombin Time with INR Stat Lab 11/10/24 10:18 Completed Troponin I Stat Lab 11/10/24 10:18 Completed Urinalysis Stat Lab 11/10/24 09:52 Ordered Urinalysis, C/S if Indicated Stat Lab 11/10/24 09:52 Ordered Venous Blood Gas Stat Lab 11/10/24 10:18 Completed Dextrose 50% Syr [D50w Syringe Abboject] Med 11/10/24 16:41 Active 50 ml IVP X1 PRN Morphine Inj Med 11/10/24 09:59 Discontinued 2 mg IVP X1 ONE Ondansetron Inj [Zofran Inj] Med 11/10/24 09:59 Discontinued 4 mg IV X1 ONE Sodium Chloride 0.9% 1000 ml [Ns] 2,000 ml Med 11/10/24 09:52 Active IV 80 mls/hr Late Tray Request Routine Oth 11/10/24 16:36 Active Vital Signs Vital signs: Vital Signs Temperature 97.9 F 11/10/24 09:34 Pulse Rate 101 H 11/10/24 09:34 Respiratory Rate 20 11/10/24 09:34 Blood Pressure 189/107 H 11/10/24 09:34 Pulse Oximetry (%) 96 11/10/24 09:34 Oxygen Delivery Method Room Air 11/10/24 09:34 Discharge Plan Plan Discharge Disposition comment: Admit to hospitalist observation Dr. Orantes to provide dialysis. Prescriptions/Referrals Prescriptions/Med Rec: No Action cyclobenzaprine 10 mg tablet 10 mg PO HS PRN (Reason: muscle spasm) Qty: 10 0RF (DME) nebulizer and compressor Device See Rx Instructions .Route Qty: 1 0RF Rx Instructions: As directed lorazepam 0.5 mg tablet 0.5 mg PO HS Patient Comments: TAKE 1 TABLET BY MOUTH EVERY EVENING Baqsimi 3 mg/actuation spray,non-aerosol 3 mg intranasal QDAY PRN (Reason: hypoglycemia) Qty: 1 0RF amlodipine 5 mg tablet 5 mg PO DAILY Patient Comments: TAKE 1 TABLET BY MOUTH DAILY FOR BLOOD PRESSURE insulin glargine [Basaglar KwikPen U-100 Insulin] 100 unit/mL (3 mL) insulin pen 25 unit subcut QAM Qty: 15 0RF (DME) pen needle, diabetic [1st Tier Unifine Pentips] 32 gauge x 5/32 needle See Rx Instructions .Route Qty: 100 0RF Rx Instructions: As directed cephalexin 500 mg capsule 500 mg PO TID Qty: 21 0RF ondansetron 4 mg tablet,disintegrating 4 mg PO Q8H PRN (Reason: nausea and vomiting) Qty: 14 0RF Referrals: Khadijah Veronica PA-C [Primary Care Provider] - In 1 week Problem List Clinical Impression: Fluid overload, End stage renal failure on dialysis, Neck pain, Back pain, thoracic, Strain of trapezius muscle Patient/Caregiver Discharge Instructions Print Language: Spanish Stand Alone Forms: Hannah Award Info., Patient Portal Info Letter MDM Narrative MDM hospital course: Patient is a 44-year-old dialysis patient who has been on dialysis since this March this past year who presents with acute neck and thoracic pain with no obvious etiology other than possible muscle spasms or tenderness as she is tender on palpation of the right trapezius and right rhomboid areas. Her pain seems to be out of proportion. Her left arm has recent surgery and there are some swelling and a little redness there and her recent visit with her surgeon felt this was within the realm of normal. Nonetheless she is 3+ weeks out and still swollen and minimal red. Because of the uncertainty and postop 3 to 4 weeks operative get an ultrasound of that upper extremity Medical workup for neck pain including CT of the head cervical and thoracic spine. Does not appear to have any acute neurological deficits. Medical workup came back CT of the head and neck are unremarkable for any acute process. CT of the thoracic and cervical spine show no fractures dislocation no epidural obvious soft tissue problem. She has a partial occlusion of her brachial vein on the left arm but this also involves the surgical site do not believe there is a true DVT present. Therefore most of the swelling is most likely postop in nature. Chest x-ray reveals some fluid overloading suggestive of congestive heart failure or fluid overload from missing her dialysis today. BNP is also elevated. Lactic acid came back at 1.9. There is no fever. There is no lymphangitis in the left arm. Laboratory studies show a BNP to be 659 procalcitonin was negative at 0.23. She is not . Transaminases were negative lactic acid 1.9 glucose 164 BUN 27 creatinine 6.4 anion gap is 12 sodium 139 potassium 4.5 venous blood gas 7.38 pCO2 of 48 PT/INR within normal limits CBC as white count of 12.6 and hemoglobin 10.8. Patient got morphine and she is very comfortable and sleeping and snoring for th e last hour or 2. Patient clinically has no serious neck or thoracic pain etiology and could go home but because she missed her dialysis she is got increased fluid I contacted her information technology administrator Dr. Orantes see if he could arrange for dialysis. He elected to have the patient come in the hospital get dialysis here. I contacted the hospitalist resident and they agreed to admit for observation and reevaluate the patient once dialysis completed and can dispo accordingly at that time. Dr. East the resident called back stated they are requesting this dialysis to be done in the emergency department and not get involved. I asked her to call Dr. Leone the attending was to discuss this further. Dr. Leone and Dr. East both came to the department saw the patient and feel this patient does not need to be admitted that they [facility] do dialysis and then have him come back to the ER to be reevaluated. At this time waiting for Dr. Jimenez to put in orders for dialysis and the patient be reevaluated after dialysis completed. At 1718 hrs. patient is not back from dialysis and probably will be [place] after 630 sows patient will be signed over to the oncoming doctor who will reevaluate the patient and discharge accordingly Clinical Information Provided by patient and EMS Medical [facility] Meds/Rx Considered, not Ordered None Labs/Rad/Tests considered, not Ordered None Chronic Illness/Social Conditions Add or document further as needed: Renal disease, on dialysis since 03/2024. Recent fistula placed on 10/20/2024. Left BKA 6 years ago. Diabetes, right foot chronic diabetic ulcer. EKG EKG Interpretation narrative: My interpretation: EKG performed at 1127 hours, sinus rhythm, rate 94, no STEMI Lab Interpretation Labs: see narrative above Imaging Imaging interpretation: see narrative above Radiology reports / interpretation(s): Procedure(s): US venous doppler UE LT Accession Number(s): [id number] cc: Yannick Boyle MD; Julien Hernandez MD~ Examination: Duplex scan of the upper extremity, unilateral left Date and time of exam: November 10, 2024 1035 hours INDICATIONS: Upper arm pain beginning 2 days ago, AV fistula place to an 2024 Technique: Duplex scan of the extremity veins using B-mode/grayscale imaging and Doppler spectral analysis and color flow Attention is directed to internal echogenicity, compression and augmentation involving these veins, color flow assessment, spectral analysis Findings: Positive for nonocclusive thrombus in the left brachial vein Upper medial arm 4.8 x 1.3 x 3.1 cm mass which may represent a hematoma IMPRESSION: Positive for nonocclusive thrombus in the left brachial vein Dictated By: Julien Hernandez MD Procedure(s): CT thoracic spine wo con Accession Number(s): [id number] cc: Yannick Boyle MD; Julien Hernandez MD; Khadijah Veronica PA-C~ Examination: CT (benign, without contrast. 2-D sagittal reconstructions. 2-D coronal reconstructions. 3-D reconstructions. Date and time of exam:November 11, 1999 2512 noon INDICATIONS: Unexplained thoracic spine pain today CTDI: vol (mGy):27.2 DLP: (mGycm):931 Technique: Multiple 1.25 mm axial sections of the thoracic spine without intravenous contrast have been obtained. 2-D sagittal and coronal reconstructions have been obtained. 3-D reconstructions have been obtained. Low dose protocols were performed. One or more of the following dose reduction techniques were used; automated exposure control, adjustment of the mA and/or KV according to patient size, use of iterative reconstruction technique. Findings: Moderate osteopenia No thoracic vertebral body compression fracture Mild diffuse thoracic disc narrowing Mild thoracic spondylosis Satisfactory alignment posterior spinous processes Thoracic pedicles laminated transverse and posterior spinous processes appear intact No focal thoracic disc protrusion Incidental note septal pulmonary edema in the lung mac with moderate bilateral pleural effusions Pericardial effusion inferiorly measuring up to 15 mm IMPRESSION: Diffuse mild thoracic degenerative disc disease No thoracic fracture Heart failure pattern Dictated By: Julien Hernandez MD Procedure(s): CT head/brain wo [facility] Accession Number(s): [id number] cc: Yannick Boyle MD; Julien Hernandez MD~ Examination: CT brain head without contrast. 2-D sagittal coronal reconstructions Date and time of exam:November 10, 2024 1020 hours INDICATIONS: Loss of consciousness episode today COMPARISON: May 18, 2024 CTDI: vol (mGy):49.7 DLP: (mGycm):975 Technique: Multiple CT axial sections of the brain have been obtained, 5 mm slice thickness. Contrast has not been administered. 2-D sagittal, coronal reconstructions have been obtained Low dose protocols were performed. One or more of the following dose reduction techniques were used; automated exposure control, adjustment of the mA and/or KV according to patient size, use of iterative reconstruction technique. Findings: No significant ventricular enlargement. Old appearing infarct left cerebellar hemisphere axial image 33 and small old infarct left basal ganglia image 25 Intra-axial or extra-axial hemorrhage density is not seen. No mass effect or midline shift Basal cisterns are not remarkable. Fourth ventricle is midline. Cranial vault intact. 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 FINDINGS: Mild CHF Mild enlargement cardiac contour Prominent vascular congestion with perihilar edema Mild to moderate right pleural fluid Right internal jugular dialysis catheter tip satisfactory position IMPRESSION: Mild CHF Dictated By: Julien Hernandez MD Procedure(s): CT cervical spine wo con Accession Number(s): [id number] cc: Yannick Boyle MD; Julien Hernandez MD~ Examination: CT cervical spine without contrast 2-D sagittal reconstructions 2-D coronal reconstructions 3-D reconstructions. Exam date and time:November 10, 2024 1020 hours INDICATIONS: Onset neck pain this morning CTDI:vol (mGy) 9.64 DLP: (mGycm) 222 Technique: Multiple 2 mm axial sections of the cervical spine have been obtained. The coronal and sagittal reconstructions have been obtained. 3-D reconstructions have been obtained. Low dose protocols were performed. One or more of the following dose reduction techniques were used; automated exposure control, adjustment of the mA and/or KV according to patient size, use of iterative reconstruction technique. Findings: Axial sections demonstrate intact base of the skull. C1 exhibit satisfactory relationship to the odontoid. No acute cervical vertebral body fracture seen. Alignment posterior spinous processes satisfactory. 5 mm focal sclerosis in the right lateral body C2 axial image 42 No cervical fracture Mild to moderate degenerative disc disease C5-C6 Impression: No acute cervical fracture. Mild to moderate degenerative disc disease C5-C6 Sclerotic lesion lateral right body of C2, consider follow-up plain film cervical spine in 3 6 months Dictated By: Julien Hernandez MD Medication Administration(s) Medication Administration History Dextrose (Dextrose 50%-Water Inj 50 Ml Syringe) 50 ml IVP X1 PRN PRN Reason: DIALYSIS Stop: 12/10/24 16:40 Last Admin: 11/10/24 16:21 Dose: 50 ml Documented By: GLORIA Sodium Chloride (Ns) 2,000 mls @ 80 mls/hr IV .Q24H ONE Stop: 11/11/24 09:51 Last Infusion: 11/10/24 15:38 Dose: 0 mls/hr Documented By: GLORIA(2) Admin: 11/10/24 11:20 Dose: 80 mls/hr Documented By: DB Discontinued Medications Morphine Sulfate (Morphine Sulf Inj 10 Mg/Ml Vial) 2 mg IVP X1 ONE Stop: 11/10/24 10:00 Last Admin: 11/10/24 11:18 Dose: 2 mg Documented By: AWA Ondansetron HCl (Ondansetron Inj 2 Mg/Ml Inj 2 Ml) 4 mg IV X1 ONE; Protocol Stop: 11/10/24 10:00 Last Admin: 11/10/24 11:17 Dose: 4 mg Documented By: AWA Consultations/Discussions re: Management Consult #1: Date/time: 11/10/24 2:44 pm Physician, specialty, service, details: Discussed test HPI, PMHx, lab, radiology results and/or management with Dr. Kathleen working with the hospitalist. Consult #2: Date/time: 11/10/24 2:34pm Physician, specialty, service, details: Discussed test HPI, PMHx, lab, radiology results and/or management with Dr. Kathleen working with the hospitalist. See narrative above. Diagnosis Differential diagnosis: DVT, cellulitis, ID, muscle spasm Most likely dx, and/or detailed dx discussion: Fluid overload End stage renal failure on dialysis Neck pain Back pain, thoracic Strain of trapezius muscle Dispositon Disposition: other (Signed out to Dr. Yee.)
--- NOTE | 2024-11-10 09:52 | XR_ITS ---
Examination: CT (benign, without contrast. 2-D sagittal reconstructions. 2-D coronal reconstructions. 3-D reconstructions. Date and time of exam:November 11, 1999 2512 noon INDICATIONS: Unexplained thoracic spine pain today CTDI: vol (mGy):27.2 DLP: (mGycm):931 Technique: Multiple 1.25 mm axial sections of the thoracic spine without intravenous contrast have been obtained. 2-D sagittal and coronal reconstructions have been obtained. 3-D reconstructions have been obtained. Low dose protocols were performed. One or more of the following dose reduction techniques were used; automated exposure control, adjustment of the mA and/or KV according to patient size, use of iterative reconstruction technique. Findings: Moderate osteopenia No thoracic vertebral body compression fracture Mild diffuse thoracic disc narrowing Mild thoracic spondylosis Satisfactory alignment posterior spinous processes Thoracic pedicles laminated transverse and posterior spinous processes appear intact No focal thoracic disc protrusion Incidental note septal pulmonary edema in the lung mac with moderate bilateral pleural effusions Pericardial effusion inferiorly measuring up to 15 mm IMPRESSION: Diffuse mild thoracic degenerative disc disease No thoracic fracture Heart failure pattern
--- NOTE | 2024-11-10 09:52 | EKG_ITS ---
[facility] Test Date: 2024-11-10 Pat Name: ELVIA FLORES Department: Room: - Gender: Female [employer] Room: : [id number] Requested By: Yannick Boyle Order Number: [id number] Reading MD: Yannick Boyle Measurements Intervals [place] Rate: 94 P: 46 [place]: 142 QRS: 47 QRSD: 86 T: 106 QT: 383 QTc: 481 Interpretive Statements SINUS RHYTHM Compared to ECG 11/03/2024 08:00:43 Myocardial infarct finding no longer present /store/S0/[id number]/[id number].pdf
--- NOTE | 2024-11-10 09:52 | XR_ITS ---
Examination: AP chest single view Technique one AP portable semiupright chest single view Date and time: November 10, 2024 1006 hours Comparison May 25, 2024 INDICATIONS: Chest pain today. FINDINGS: Mild CHF Mild enlargement cardiac contour Prominent vascular congestion with perihilar edema Mild to moderate right pleural fluid Right internal jugular dialysis catheter tip satisfactory position IMPRESSION: Mild CHF
--- NOTE | 2024-11-10 09:52 | XR_ITS ---
Examination: CT cervical spine without contrast 2-D sagittal reconstructions 2-D coronal reconstructions 3-D reconstructions. Exam date and time:November 10, 2024 1020 hours INDICATIONS: Onset neck pain this morning CTDI:vol (mGy) 9.64 DLP: (mGycm) 222 Technique: Multiple 2 mm axial sections of the cervical spine have been obtained. The coronal and sagittal reconstructions have been obtained. 3-D reconstructions have been obtained. Low dose protocols were performed. One or more of the following dose reduction techniques were used; automated exposure control, adjustment of the mA and/or KV according to patient size, use of iterative reconstruction technique. Findings: Axial sections demonstrate intact base of the skull. C1 exhibit satisfactory relationship to the odontoid. No acute cervical vertebral body fracture seen. Alignment posterior spinous processes satisfactory. 5 mm focal sclerosis in the right lateral body C2 axial image 42 No cervical fracture Mild to moderate degenerative disc disease C5-C6 Impression: No acute cervical fracture. Mild to moderate degenerative disc disease C5-C6 Sclerotic lesion lateral right body of C2, consider follow-up plain film cervical spine in 3 6 months
--- NOTE | 2024-11-10 09:52 | XR_ITS ---
Examination: CT brain head without contrast. 2-D sagittal coronal reconstructions Date and time of exam:November 10, 2024 1020 hours INDICATIONS: Loss of consciousness episode today COMPARISON: May 18, 2024 CTDI: vol (mGy):49.7 DLP: (mGycm):975 Technique: Multiple CT axial sections of the brain have been obtained, 5 mm slice thickness. Contrast has not been administered. 2-D sagittal, coronal reconstructions have been obtained Low dose protocols were performed. One or more of the following dose reduction techniques were used; automated exposure control, adjustment of the mA and/or KV according to patient size, use of iterative reconstruction technique. Findings: No significant ventricular enlargement. Old appearing infarct left cerebellar hemisphere axial image 33 and small old infarct left basal ganglia image 25 Intra-axial or extra-axial hemorrhage density is not seen. No mass effect or midline shift Basal cisterns are not remarkable. Fourth ventricle is midline. Cranial vault intact. Impression: Negative for acute hemorrhage, mass effect or midline shift Old infarcts as above If symptoms persist, consider brain MRI follow-up stroke protocol
--- NOTE | 2024-11-10 10:04 | XR_ITS ---
Examination: Duplex scan of the upper extremity, unilateral left Date and time of exam: November 10, 2024 1035 hours INDICATIONS: Upper arm pain beginning 2 days ago, AV fistula place to an 18 2024 Technique: Duplex scan of the extremity veins using B-mode/grayscale imaging and Doppler spectral analysis and color flow Attention is directed to internal echogenicity, compression and augmentation involving these veins, color flow assessment, spectral analysis Findings: Positive for nonocclusive thrombus in the left brachial vein Upper medial arm 4.8 x 1.3 x 3.1 cm mass which may represent a hematoma IMPRESSION: Positive for nonocclusive thrombus in the left brachial vein
[2024-11-10 10:29] LABS: Base Excess, Venous 3 (-3-3); O2 Saturation, Venous 71 % (96-97); PCO2, Venous 48 mmHg (36-56); PO2, Venous 41 mmHg (15-58); pH, Venous 7.38 (7.33-7.66)
[2024-11-10 10:30] LABS: Lactate (Lactic Acid) 1.9 mMol/L (0.4-2.0)
[2024-11-10 10:32] LABS: Basophils # (Auto) 0.1 Thou/mm3 (0.0-0.2); Basophils % (Auto) 1 % (0-2.5); Eosinophils # (Auto) 0.3 Thou/mm3 (0.0-0.5); Eosinophils % (Auto) 2 % (0-10); Hematocrit 34.5 % (36.0-46.0); Hemoglobin 10.8 g/dL (12.0-16.0); Immature Granulocytes Auto 0.05 Thou/mm3 (0.00-0.00); Lymphocytes # (Auto) 3.2 Thou/mm3 (1.0-4.8); Lymphocytes % (Auto) 26 % (10-50); Mean Corpuscular HGB Conc 31.3 g/dl (31.0-37.0); Mean Corpuscular Hemoglobin 26.6 pg (25.0-35.0); Mean Corpuscular Volume 85 fL (80-100); Monocytes # (Auto) 0.9 Thou/mm3 (0.0-0.8); Monocytes % (Auto) 8 % (0-12); Neutrophils # (Auto) 8.0 Thou/mm3 (1.8-7.7); Neutrophils % (Auto) 64 % (37-80); Nucleated Red Blood Cell # 0.00 Thou/mm3 (0.00-0.00); Nucleated Red Blood Cell % 0 /100 WBC (0); Platelet Count 351 Thou/mm3 (140-440); RDW Standard Deviation 54.1 fL (36.4-46.3); Red Blood Count 4.06 Miln/mm3 (4.00-5.20); White Blood Count 12.6 Thou/mm3 (3.6-11.0)
[2024-11-10 10:48] LABS: INR 1.0 (0.9-1.3); Prothrombin Time 11.3 Seconds (9.0-12.2)
[2024-11-10 10:55] LABS: Ammonia < 10 uMol/L (11-32)
[2024-11-10 11:05] LABS: B-Type Natriuretic Peptide 659 pg/mL (0-100)
[2024-11-10 11:06] LABS: Alanine Aminotransferase < 7 U/L (10-49); Albumin, Serum 3.9 gm/dL (3.5-5.0); Albumin/Globulin Ratio 1.2 (1.2-2.2); Alcohol, Blood Medical < 10.0 mg/dL (0-10.0); Alkaline Phosphatase 98 U/L (46-116); Anion Gap 12 (7-16); Aspartate Amino Transferase < 10 U/L (0-34); BUN/Creatinine Ratio 4 Ratio (12-20); Bilirubin,Total 1.1 mg/dL (0.3-1.2); Blood Urea Nitrogen 27 mg/dL (9-23); Calcium 8.5 mg/dL (8.3-10.6); Calcium (Corrected) 8.6 mg/dL (8.5-10.1); Carbon Dioxide 28.5 mMol/L (20.0-31.0); Chloride 99 mMol/L (98-107); Creatinine (Component) 6.4 mg/dL (0.6-1.3); Estimated Creatinine Clearance 10.2 mL/min (>60); Globulin 3.3 gm/dL (2.3-3.5); Glucose 164 mg/dL (74-106); Osmolality,Calculated 286 (275-295); Potassium 4.5 mMol/L (3.4-5.1); Procalcitonin 0.23 ng/ml (0.0-0.49); Sodium 139 mMol/L (136-145); Total Protein 7.2 gm/dL (5.7-8.2); Troponin I < 0.020 ng/mL (0.0-0.045); eGFR 8 See Note
[2024-11-10] MEDS: ONDANSETRON INJ 2 MG/ML INJ 2 ML 4 MG IV (11:17)
[2024-11-10] MEDS: MORPHINE SULF INJ 10 MG/ML VIAL 2 MG IVP (11:18)
[2024-11-10] MEDS: SODIUM CHLORIDE 0.9% 1000 ML 2,000 ML 80 ML IV (11:20)
[2024-11-10 11:37] LABS: HCG,Qualitative Serum Negative
[2024-11-10] MEDS: DEXTROSE 50%-WATER INJ 50 ML SYRINGE IVP (16:21)
--- NOTE | 2024-11-10 16:22 | PC.NURSE ---
Pt ignored her phone and did not respond. Pt didn't look right so did a blood sugar and it was 52, so immediately went for the Dextrose 50%. Infused D50 through the saline port into the arterrial line. Pt. immediately woke up, ask her if she felt like she had low blood sugar. Pt responed silva yeah, it feels a little
--- NOTE | 2024-11-10 16:58 | ESCONSULT_ITS ---
HPI Data of Consult Consult date: 11/10/24 Primary Care Provider: Khadijah Veronica PA-C Consult Narrative Reason for consult: Headache and back pain History of present illness: This patient is a 44-year-old female with past medical history of ESRD with RIJ PermCath on hemodialysis Friday follows Dr. Livingston, chronic CVA, asthma, essential hypertension, insulin-dependent type 2 diabetes, diabetic neuropathy, normocytic anemia presented to the ED with chief complaint of neck pain and back pain started today. She missed her dialysis session due to her pain in the back and neck. Pain was radiating to her mid back more worse in the right side than the left. She also noted to have left arm swelling. Denied any fever chills, cough, bleeding or any other symptom. Patient did sleep in the wrong posture at night. On physical examination, patient is able to do passive flexion and extension of her with some stiffness and bulge in her back on cervical region. She had hx of absces on same site in the past. She was able to flex her neck towards the right and left side with some pain. No focal neurological deficit was elicited on right lower extremity. Patient's back did not had any swelling or bulge. She had mild tenderness on mid back. She was able to feel sensations in right lower extremity and left thigh. She denied having any bowel or bladder incontinence. Patient was able to sit and gait was not tested since patient had an amputation of left leg. PMH: On dialysis since 03/28. Recent fistula placed on 10/20/2024, right foot diabetic ulcer PSH: Left AKA 6 years ago SH: Denies smoking, drinking alcohol or illicit drug use. Home medications: Lantus 25 units, cyclobenzaprine 10 mg at bedtime, Ativan 0.5 mg at bedtime, nifedipine 30 mg, amlodipine 5 mg, tramadol 50 mg, losartan 100 mg, sevelamer carbonate 80 mg, albuterol, fluticasone In the ED, patient received morphine 2 mg x 1, Zofran 4 mg x 1, and fluid at 80 cc/h. Hemodialysis orders were placed by network desktop support specialist. ED physician called us for admission for hemodialysis and workup for her pain. Labs showed mildly elevated white count 12.6. Hemoglobin stable at 10.8. Chemistry panel showed electrolytes within normal limits. Kidney functions were consistent with ESRD pattern. Blood glucose 164. Lactic acid was normal. BNP was elevated at 659. Procalcitonin was negative. Urinalysis was not ordered. Urinalysis from 11/03/2024 showed proteinuria and glucosuria. Blood alcohol level negative. EKG showed sinus rhythm. Imaging: Venous Doppler showed nonocclusive thrombus in left brachial vein. CT thoracic spine showed diffuse mild thoracic degenerative disc disease. Head CT showed no acute changes. Chest x-ray showed prominent vascular congestion. Cervical spine CT showed no acute cervical fracture. Sclerotic lesion right body of C2. cc:: cc: Review of Systems Review of Systems Systems Reviewed: All systems reviewed, normal except as documented Past Medical History Past Medical History CARDIAC: Positive Hypercholesterolemia, Cellulitis, Hypertension and Hypotension RESPIRATORY: Positive Asthma and Pneumonia GENITOURINARY: Positive Renal Disease and Dialysis (3 times a week) REPRODUCTIVE: Positive Previous Pregnancies MUSCULOSKELETAL: Positive Osteomyelitis ENT: Positive Blind (right eye) ENDOCRINE: Positive Endocrine Disorders, Diabetes Mellitus Type 2 and Hypoglycemia HEMATOLOGIC: Positive Anemia PSYCHO/SOCIAL: Positive Anxiety OTHER HISTORY: Positive Hospitalization, Falls, Blood Transfusions and Chicken Pox Family History FAMILY HISTORY: Positive Family Respiratory Disorders and Family Cardiac Disorders Surgical History SURGICAL: Positive Abdominal Surgery and Amputation Social History SMOKING STATUS: Current some day smoker SECOND HAND EXPOSURE: No SUBSTANCE USE: does not use Exam Vital Signs Temp Pulse Resp BP Pulse Ox O2 Del Method 98.8 F 93 16 162/93 H 97 Room Air 11/10/24 12:37 11/10/24 16:45 11/10/24 13:00 11/10/24 16:45 11/10/24 13:00 11/10/24 13:00 Narrative Exam GENERAL APPEARANCE: AxOx4 female in mild distress due to pain in her neck. Saturating well on room air. HEENT: NC, AT. MMM. EOMI, clear conjunctiva, oropharynx clear. NECK: Supple without lymphadenopathy. Mild neck swelling at cervical area with scar alley. Right IJV. normal Passive and active flexion of neck with Mild stiffness. HEART: Sinus tachycardia with regular rhythm, normal S1/S2, no m/r/g LUNGS: CTAB, moving air well. No crackles or wheezes are heard. ABDOMEN: Soft, nontender, nondistended with good bowel sounds heard. BACK: No CVAT, no obvious deformity. EXTREMITIES: Above-knee amputation on left extremity. Right lower extremity chronic venous stasis. Right arm fistula. NEUROLOGICAL: Grossly nonfocal. Alert and orientedx3. Above-knee amputation left lower extremity. Right lower extremity with chronic venous stasis. Skin: Warm and dry without any rash. Psych: Appropriate mood and affect with mild anxiety due to pain Results Labs 11/10/24 10:18 11/10/24 10:18 Labs: Short CBC 11/10/24 Range/Units 10:18 WBC 12.6 H (3.6-11.0) Thou/mm3 Hgb 10.8 L (12.0-16.0) g/dL Hct 34.5 L (36.0-46.0) % Plt Count 351 (140-440) Thou/mm3 BMP 11/10/24 10:18 Sodium 139 Potassium 4.5 Chloride 99 Carbon Dioxide 28.5 BUN 27 H Creatinine 6.4 H* Glucose 164 H Calcium 8.5 Cardiac Enzymes 11/10/24 Range/Units 10:18 Troponin I < 0.020 (0.0-0.045) ng/mL Liver Function 11/10/24 Range/Units 10:18 Total Bilirubin 1.1 (0.3-1.2) mg/dL AST < 10 (0-34) U/L ALT < 7 L (10-49) U/L Alkaline Phosphatase 98 (46-116) U/L Albumin 3.9 (3.5-5.0) gm/dL ABG Interpretation ABG results: 11/10/24 10:18 VBG pH 7.38 VBG pCO2 48 VBG pO2 41 VBG Base Excess 3 Quality Measures Quality Measures none Medications Home Medications and Allergies Home Medications ?Medication ?Instructions ?Recorded ?Confirmed ?Type lorazepam 0.5 mg tablet 0.5 mg PO HS 04/01/24 History amlodipine 5 mg tablet 5 mg PO DAILY 05/18/2405/18 History Allergies Allergy/AdvReac Type Severity Reaction Status Date / Time amoxicillin (From Augmentin) Allergy Severe Swelling Verified 11/03/24 05:56 of Lip/Tongue/Throat clavulanic acid (From Allergy Severe Swelling Verified 11/03/24 05:56 Augmentin) of Lip/Tongue/Throat Visit Medications Dextrose (Dextrose 50%-Water Inj 50 Ml Syringe) 50 ml IVP X1 PRN PRN Reason: DIALYSIS Stop: 12/10/24 16:40 Last Admin: 11/10/24 16:21 Dose: 50 ml Sodium Chloride (Ns) 2,000 mls @ 80 mls/hr IV .Q24H ONE Stop: 11/11/24 09:51 Last Infusion: 11/10/24 15:38 Dose: 0 mls/hr Discontinued Medications Morphine Sulfate (Morphine Sulf Inj 10 Mg/Ml Vial) 2 mg IVP X1 ONE Stop: 11/10/24 10:00 Last Admin: 11/10/24 11:18 Dose: 2 mg Ondansetron HCl (Ondansetron Inj 2 Mg/Ml Inj 2 Ml) 4 mg IV X1 ONE; Protocol Stop: 11/10/24 10:00 Last Admin: 11/10/24 11:17 Dose: 4 mg Assessment & Plan Plan This patient is a 44-year-old female with past medical history of ESRD with RIJ PermCath on hemodialysis Friday follows Dr. Livingston, chronic CVA, asthma, essential hypertension, insulin-dependent type 2 diabetes, diabetic neuropathy, normocytic anemia presented to the ED with chief complaint of neck pain and back pain started today. She missed her dialysis session due to her pain in the back and neck. #Possible muscle spasm/MSK pain -In the setting of neck and back pain -Patient presented with neck and back pain started today. Pain is achy around 8/10 with muscle stiffness with Radiating to her mid trapezius. She missed her dialysis session due to her pain in the back and neck. Pain was radiating to her mid back more worse in the right side than the left. She also noted to have left arm swelling. Patient did sleep in the wrong posture at night. Denied any fever chills, cough, bleeding or any other symptom. -On physical examination, patient is able to do passive flexion and extension of her with some stiffness and bulge in her back on cervical region. She had hx of absces on same site in the past. She was able to flex her neck towards the right and left side with some pain. No focal neurological deficit was elicited on right lower extremity. Patient's back did not had any swelling or bulge. She had mild tenderness on mid back. She was able to feel sensations in right lower extremity and left thigh. She denied having any bowel or bladder incontinence. Patient was able to sit and gait was not tested since patient had an amputation of left leg. - less likely due to meningitis/encephalitis as patient is able to flex her neck and move towards right and left. Denies any fever spike. -CT thoracic spine showed diffuse mild thoracic degenerative disc disease. Head CT showed no acute changes. Chest x-ray showed prominent vascular congestion. Cervical spine CT showed no acute cervical fracture. Sclerotic lesion right body of C2. Plan: -Would benefit with muscle relaxant and pain management -In case of worsening signs and symptoms patient can always come back to the ER - She will need to follow-up with her PCP as outpatient to get an outpatient physical therapy and continue her pain management #Nonocclusive DVT left brachial vein -Patient did had some left upper extremity swelling. - Doppler ultrasound showed nonocclusive DVT in left brachial vein. Plan: - Since it is nonocclusive, does not need anticoagulation at this point. #ESRD on dialysis [M/W/F] - Patient is dialysis session this morning due to her neck and back pain. Plan: -ED consulted network desktop support specialist, Dr. 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 She will benefit with muscle relaxant and pain management with outpatient physical therapy after referral from PCP for her neck stiffness and back pain. Continue her home meds. If she have any worsening signs and symptoms patient can always come back to the ED or call 911. Patient seen and discussed with attending physician, Dr. Vasu Kathleen MD, PGY 3 Attending Provider Attestation/Addendum Mark, Nataliya Leone DO, attest that I was physically present for the lindsay portions of the service and evaluated the patient with the resident and I reviewed and discussed the case with the resident and agree with the resident's findings and plans of care as documented above
--- NOTE | 2024-11-10 16:58 | PD.RESCONSUL ---
HPI Data of Consult Patient: known to practice within the last 3 years Consult date: 11/10/24 Primary Care Provider: Khadijah Veronica PA-C Consult Narrative Reason for consult: ESRD on HD MWF History of present illness: Mrs. Bajwa is a pleasant 44 year old woman with a medical history of asthma, chronic CVA, HTN, T2DM, ESRD on HD MWF (RIJ PermCath), s/p fistula placement, and s/p left leg amputation who presents with neck and back pain that started yesterday at around 2pm. The patient came from home. Symptoms of neck pain came on abruptly and progressed down her neck into her thoracic spine. She describes the pain as almost like a burning sensation that is most noticeable when she moves her head. The pain is constant and the patient has never experienced anything like this before. She has tried using IcyHot without improvement as well as tramadol without improvement. The patient stated that she was having significant difficulty sleeping last night due to this pain. In the ED she was given morphine which allowed her to sleep but when the patient woke up she immediately noticed the pain again. Due to her neck pain the patient missed a dialysis session as she was advised to seek treatment in the ER. The current plan is to have the patient discharged back to home after her hemodialysis session without admission to the floors. Nephrology was not consulted but this patient is well-known to Dr. Livingston. ED called Dr. Livingston to put in orders for hemodialysis. Patient is expecting her sister to pick her up from [facility]. Other than today, patient denies missing any other recent hemodialysis sessions. RIManohar ZamoraCathannah present without any swelling, pus, redness in the surrounding area. ED vitals and lab results reviewed. BUN 27, creatinine 6.4, and GFR 8. Besides the neck pain and back pain, the patient endorses a headache, nausea, and swelling of her left arm. Patient also notes that due to her neck and back pain, taking a deep breath is painful, but patient denies any shortness of breath unrelated to the pain. Patient denies fevers, chills, cough, chest pain, abdominal pain, diarrhea, constipation, dysuria, and hematuria. cc:: cc: Review of Systems Review of Systems Systems Reviewed: All systems reviewed, normal except as documented Exam Vital Signs Temp Pulse Resp BP Pulse Ox O2 Del Method 98.8 F 93 16 162/93 H 97 Room Air 11/10/24 12:37 11/10/24 16:45 11/10/24 13:00 11/10/24 16:45 11/10/24 13:00 11/10/24 13:00 Narrative Exam Physical Exam: General: Alert, no acute distress. Skin: Warm, dry, intact, no obvious rash. RIJ catheter site noted without redness, swelling, or pus. Head: Normocephalic, atraumatic. Cardiovascular: Tachycardic, regular rhythm, no murmur, +S1/S2. Respiratory: Lungs are clear to auscultation, respirations labored on inhalation, no crackles, no wheezing. Gastrointestinal: Soft, nontender, distended. No guarding or rebound tenderness. Extremities: Edema in left hand. No cyanosis or clubbing. Neuro: No focal deficits observed. Conversant, moving all extremities. No overt cerebellar signs/incoordination. Psychiatric: Cooperative, appropriate affect. Results Labs 11/10/24 10:18 11/10/24 10:18 Labs: Short CBC 11/10/24 Range/Units 10:18 WBC 12.6 H (3.6-11.0) Thou/mm3 Hgb 10.8 L (12.0-16.0) g/dL Hct 34.5 L (36.0-46.0) % Plt Count 351 (140-440) Thou/mm3 BMP 11/10/24 10:18 Sodium 139 Potassium 4.5 Chloride 99 Carbon Dioxide 28.5 BUN 27 H Creatinine 6.4 H* Glucose 164 H Calcium 8.5 Cardiac Enzymes 11/10/24 Range/Units 10:18 Troponin I < 0.020 (0.0-0.045) ng/mL Liver Function 11/10/24 Range/Units 10:18 Total Bilirubin 1.1 (0.3-1.2) mg/dL AST < 10 (0-34) U/L ALT < 7 L (10-49) U/L Alkaline Phosphatase 98 (46-116) U/L Albumin 3.9 (3.5-5.0) gm/dL ABG Interpretation ABG results: 11/10/24 10:18 VBG pH 7.38 VBG pCO2 48 VBG pO2 41 VBG Base Excess 3 Quality Measures Quality Measures none Medications Home Medications and Allergies Home Medications ?Medication ?Instructions ?Recorded ?Confirmed ?Type lorazepam 0.5 mg tablet 0.5 mg PO HS 04/01/24 05/18/24 History amlodipine 5 mg tablet 5 mg PO DAILY 05/18/24 05/18/24 History Allergies Allergy/AdvReac Type Severity Reaction Status Date / Time amoxicillin (From Augmentin) Allergy Severe Swelling Verified 11/03/24 05:56 of Lip/Tongue/Throat clavulanic acid (From Allergy Severe Swelling Verified 11/03/24 05:56 Augmentin) of Lip/Tongue/Throat Visit Medications Dextrose (Dextrose 50%-Water Inj 50 Ml Syringe) 50 ml IVP X1 PRN PRN Reason: DIALYSIS Stop: 12/10/24 16:40 Last Admin: 11/10/24 16:21 Dose: 50 ml Sodium Chloride (Ns) 2,000 mls @ 80 mls/hr IV .Q24H ONE Stop: 11/11/24 09:51 Last Infusion: 11/10/24 15:38 Dose: 0 mls/hr Discontinued Medications Morphine Sulfate (Morphine Sulf Inj 10 Mg/Ml Vial) 2 mg IVP X1 ONE Stop: 11/10/24 10:00 Last Admin: 11/10/24 11:18 Dose: 2 mg Ondansetron HCl (Ondansetron Inj 2 Mg/Ml Inj 2 Ml) 4 mg IV X1 ONE; Protocol Stop: 11/10/24 10:00 Last Admin: 11/10/24 11:17 Dose: 4 mg Assessment & Plan Plan Mrs. Bajwa is a pleasant 44 year old woman with a medical history of asthma, chronic CVA, HTN, T2DM, ESRD on HD MWF ([facility]), s/p fistula placement, and s/p left leg amputation who presents with neck and back pain that started yesterday at around 2pm. Dr. Livingston was called to manage HD for patient. #ESRD on HD MWF Patient is known to Dr. Livingston and is scheduled for MWF HD outpatient. Patient missed HD today (11/10/24) as she was advised to seek care in ER for her neck and back pain instead. - HD for 3 hours, 2k/2.5 bath (adjust per labs), 300/600, Bicarb 35, UF 2 to 3 liters - Resume MWF HD schedule once discharged Patient was discussed with the Nephrology attending, Dr. Livingston. Thank you for allowing us to participate in the care of this patient. Pipo Fernandes, PGY-1 Attending Provider Attestation/Addendum Pt is seen and examined. Labs are reviewed. Agree with assessment and plan and findings by resident. Bala livingston MD
--- NOTE | 2024-11-10 19:14 | PC.NURSE ---
SBAR received from NICK Malik. Pt is off unit having dialysis at this time.
--- NOTE | 2024-11-10 19:20 | PC.NURSE ---
Pt returned from dialysis. Per pulp mill operator, pt had 3L removed. Had episode of hypoglycemia. Was given D50 and food, which pt tolerated well. FS now 107 as of 1899. Pt is awake, alert, no signs of distress. Currently endorsing neck ache. VS updated, bed locked in lowest position, call light within reach.
--- NOTE | 2024-11-10 23:07 | PD.EDADDENDU ---
Emergency Room Addendum Addendum Narrative: 1800: Care assumed from Dr. Boyle (emergency physician). Past medical, surgical, social and family history reviewed. Vitals and home medications reviewed. Results and treatment plan discussed. I will assume the care of the patient at this time and will follow the patient, pending completion of dialysis treatment and final disposition. Assumed care of this pleasant 44 y/o female presenting with likely musculoskeletal cervicothoracic pain s/p recent fistula placement with partial brachial thrombosis. Patient has been dialyzed without incident and is considered stable enough for discharge. Patient placed on muscle relaxant and short course of narcotic analgesics and PO steroids Place on muscle relaxant and short course or narcotic analgesics and PO steroids.
[2024-11-10] MEDS: HYDROmorphone INJ 2 MG/ML VIAL 1 MG IVP (23:46)
--- NOTE | 2024-11-10 23:47 | PD.EDADDENDU ---
Emergency Room Addendum Addendum Narrative: Dr. Hernandez requests [place] 5-325 TID PRN 20 tabs because his E-script is not working yet. RX sent.
== END 2024-11-10 23:57 | disposition home or self-care (01) ==
PROVIDERS: Emergency Medicine; Emergency Provider Emergency Medicine; PCP Physician Assistant
DX: S46.812A Strain of other muscles, fascia and tendons at shoulder and upper arm level, left arm, initial encounter (principal); M50.322 Other cervical disc degeneration at C5-C6 level; M89.8X8 Other specified disorders of bone, other site; I50.9 Heart failure, unspecified; R55 Syncope and collapse; I82.622 Acute embolism and thrombosis of deep veins of left upper extremity; M51.34 Other intervertebral disc degeneration, thoracic region; N18.6 End stage renal disease; Z99.2 Dependence on renal dialysis; E11.22 Type 2 diabetes mellitus with diabetic chronic kidney disease; E78.00 Pure hypercholesterolemia, unspecified; I13.2 Hypertensive heart and chronic kidney disease with heart failure and with stage 5 chronic kidney disease, or end stage renal disease; F17.200 Nicotine dependence, unspecified, uncomplicated; X58.XXXA Exposure to other specified factors, initial encounter
CPT/HCPCS: 36415; 70450; 71045; 72125; 72128; 80053; 80320; 81001; 82140; 82803; 83605; 83880; 84145; 84484; 84703; 85025; 85610; 87040; 87077; 87186; 90935; 93005; 93971; 96361; 96372; 96374; 96375; 99284; J1171; J2270; J2405; J7030; A9270; G0257; G0480

== ENCOUNTER 2024-11-17 01:46 | Inpatient (IN) | payer MEDICAID, SELFPAY ==
[2024-11-17] VITALS (27 sets, daily range): BP systolic 126–170; BP diastolic 78–104; PULSE 84–102; RESP 14–24; TEMP 36.1–36.8; O2SAT 92–100; BMI 29.5
--- NOTE | 2024-11-17 02:56 | EDNOTE_ITS ---
ED Back Injury Pain RME/HPI General Chief Complaint: Back Pain/Injury Stated Complaint: UPPER BACK PAIN Time Seen by Provider: 11/17/24 02:16 Arrival date/time: 11/17/24 01:46 RME / HPI RME / HPI Narrative: This section includes all my notes and documentations, including HPI, PE, and ED course. Nitin Yee MD HPI: 44yo female with a history of renal disease on HD (M/W/F) s/p recent fistula placed on 10/20/2024, DM, HTN presents to the ED for a chief complaint of upper back pain. Patient was seen here couple days ago for similar symptoms, but states her pain has gotten progressively worse. She does have nausea and a decreased appetite. No vomiting, fevers, or cough. Pain radiates into the neck and upper chest. No other complaints reported. ROS: All negative except as documented in HPI. Physical Exam: General: Alert and oriented. Appears uncomfortable. Eyes: Conjunctivae and lids clear. ENT: No nasal congestion. Neck: Supple. Heart: RRR. Lungs: No respiratory distress. Good air movement. No severe rhonchi, wh eezing, rales. Abdomen: Soft and nontender. Normal bowel sounds. No distension. No rebound or guarding. Back: No CVA tenderness. Skin: Warm and dry. Neuro: Alert and oriented X 3. I reviewed all diagnostic test results. My review of the CT angio chest report is complex moderate pericardial effusion, suspicious for pericarditis. Blood tests remarkable for D-Dimer 1200, BNP 406, Creatinine 5.5, Glucose 57. UA showed positive leukocyte Estrace, 49 WBC, and bacteria. At this point, diagnoses include pericardial effusion, UTI, hypoglycemia, ESRD. Treatment here included is Zofran 4 mg IV, Dilaudid 1 mg IV, Rocephin 1 g IV, and D50 25 mL IV. She felt much better. I discussed the case with our ultrasonic welding machine operator on-call and patient's paper twister tender (Dr. Livingston) and our hospitalist. About the presentation and exam and diagnostics and treatments here. And need of further care in the hospital. Will accept the patient. Nitin Yee MD Related Data Home Medications ?Medication ?Instructions ?Recorded ?Confirmed lorazepam 0.5 mg tablet 0.5 mg PO HS 04/01/24 amlodipine 5 mg tablet 5 mg PO DAILY 05/18/2405/18 Previous Rx's ?Medication ?Instructions ?Recorded cyclobenzaprine 10 mg tablet 10 mg PO HS PRN muscle sp asm #10 10/16/22 tabs nebulizer and compressor #1 ea 05/13/23 glucagon 3 mg/actuation nasal 3 mg intranasal QDAY PRN 04/12/24 spray (Baqsimi) hypoglycemia #1 ea insulin glargine 100 unit/mL (3 25 unit (0.25 mL) subc ut QAM #15 mL 05/28/24 mL) subcutaneous pen (Basaglar KwikPen U-100 Insulin) pen needle, diabetic 32 gauge x #100 ea 05/28/24 (1st Tier Unifine Pentips) cephalexin 500 mg capsule 500 mg PO TID #21 caps 11/03 ondansetron 4 mg disintegrating 4 mg PO Q8H PRN nausea and 11/03/24 tablet vomiting #14 tabs hydrocodone 5 mg-acetaminophen 325 1 tab PO TID PRN pa in #20 tabs 11/10/24 mg tablet Allergies Allergy/AdvReac Type Severity Reaction Status Date / Time amoxicillin (From Augmentin) Allergy Severe Swelling Verified 11/17/24 01:47 of Lip/Tongue/Throat clavulanic acid (From Allergy Severe Swelling Verified 11/17/24 01:47 Augmentin) of Lip/Tongue/Throat Review of Systems Review of Systems Systems Reviewed: All systems reviewed, normal except as documented Past Medical History Past Medical History NEUROLOGIC: Negative Neurological Disorders, Cerebrovascular Accident, Transient Ischemic Attacks (TIA), Dementia, Alzheimer's Disease, Parkinson's Disease, Brain Tumor, Meningitis, Seizures, Epilepsy, Multiple Sclerosis, Cerebral Palsy, Amyotrophic Lateral Sclerosis (ALS/Autumn Gehrig's), Guillain-[place] Syndrome, Spina Bifida, Paralysis, Peripheral Neuropathy, Epsino's Palsy, Subdural Hematoma, Migraine, Head Trauma, Spinal Cord Injury or Traumatic Brain Injury CARDIAC: Positive Hypercholesterolemia, Cellulitis, Hypertension and Hypotension; Negative Cardiac Disorders, Myocardial Infarction, Cardiac Arrhythmia, Atrial Fibrillation, Angina, Heart Murmur, Coronary Artery Disease, Atherosclerotic Heart Disease, Peripheral Vascular Disease, Aneurysm, Congestive Heart Failure, Congenital Heart Disease, Valvular Heart Disease, Rheumatic Fever, Cardiomyopathy, Edema, Pericarditis, Deep Vein Thrombosis or Varicose Veins RESPIRATORY: Positive Asthma and Pneumonia; Negative Chronic Obstructive Pulmonary Disease (COPD), Bronchitis, Emphysema, Pulmonary Fibrosis, Cystic Fibrosis, Tuberculosis, Pulmonary Embolism, Pulmonary Edema or Sleep Apnea GASTROINTESTINAL: Negative Gastrointestinal Disorders, Hepatitis, Cirrhosis, Pancreatitis, Celiac Disease, Gall Bladder Disease, Gastrointestinal Bleed, Esophageal Varices, Gastelum's Esophagus, Colitis, Ulcerative Colitis, Diverticulitis, Diverticulosis, Ulcer, Colorectal Cancer, Irritable Bowel, Crohn's Disease, Obstructive Bowel, Hiatal Hernia, Hemorrhoids, Gastroesophageal Reflux Disease or Obesity GENITOURINARY: Positive Renal Disease and Dialysis (3 times a week); Negative Genitourinary Disorders, Kidney Stones, Polycystic Kidney Disease, Neurogenic Bladder, Inguinal Hernia or Prostate Cancer REPRODUCTIVE: Positive Previous Pregnancies; Negative Breast Cancer, Endometriosis, Genital Herpes, Gonorrhea, Pelvic Inflammatory Disease, Syphilis, Testicular Cancer or Uterine Prolapse MUSCULOSKELETAL: Positive Osteomyelitis; Negative Musculoskeletal Disorders, Muscular Dystrophy, Myasthenia Gravis, Marfan's Syndrome, Bone Cancer, Arthritis, Rheumatoid Arthritis, Osteoporosis, Degenerative Disk Disease, Gout, Scoliosis, Carpal Tunnel Syndrome, Fibromyalgia, Fractures, Degenerative Joint Disease or Poliovirus ENT: Positive Blind (right eye); Negative Cataracts, Glaucoma, Retinal Detachment, Macular Degeneration, Ear Infection, Deafness, Head Trauma or Eye Prosthesis ENDOCRINE: Positive Endocrine Disorders, Diabetes Mellitus Type 2 and Hypoglycemia; Negative Diabetes Mellitus Type 1, [place]'s Syndrome, [place]'s Disease, Hyperthyroidism, Hypothyroidism, Parathyroid Disease, Pituitary Disease, Systemic Lupus Erythematosus, Syndrome of Inappropriate Antidiuretic Hormone (SIADH), Adrenal Disease or Graves' Disease HEMATOLOGIC: Positive Anemia; Negative Blood Disorders, Leukemia, Hemophilia, Thalassemia, Sickle Cell Disease or Clotting Problems PSYCHO/SOCIAL: Positive Anxiety; Negative Psychiatric Problems, Schizophrenia, Recreational Drug Use, Bipolar Disorder, Depression, Behavior Problems, Self-Mutilation, Attention Deficit Disorder, Attention Deficit Hyperactivity Disorder, Depression, Post Traumatic Stress Disorder or Eating Disorder OTHER HISTORY: Positive Hospitalization, Falls, Blood Transfusions and Chicken Pox; Negative Autoimmune Disease, Down Syndrome, Autism, Developmental Delay, Shingles, Blood Transfusion Reaction, Anesthesia Reactions, Organ Transplant, Chemotherapy, Radiation Therapy, Hyperbaric Therapy, MRSA, VRSA, Vancomycin- Resistant Enterococci, Human Immunodeficiency Virus (HIV), Measles, Mumps, Rubella (Turkmen Measles), Pertussis, Clostridium Difficile, Cancer, Breast Cancer, Cervical Cancer, Colorectal Cancer, Lung Cancer, Ovarian Cancer, Prostate Cancer or Testicular Cancer Family History FAMILY HISTORY: Positive Family Respiratory Disorders and Family Cardiac Disorders; Negative Family Psychiatric Problems, Family Gastrointestinal Problems, Family Cancer, Family Surgery or Family Anesthesia Reaction Surgical History SURGICAL: Positive Abdominal Surgery and Amputation; Negative Cardiac Surgery, Open Heart Surgery, Coronary Artery Bypass Graft, Valve Replacement, Vascular Surgery, Coronary Stent, Cardiac Catheterization, Pacemaker, Angiogram, Auto Implanted Cardiovert Defib, Carotid Endarterectomy, Endocrine Surgery, Thyroidectomy, Ear Surgery, Tympanostomy Tube, Eye Surgery, Nose Surgery, Oral Surgery, Tonsillectomy, Adenoidectomy, Cochlear Implant, Corneal Transplant, Throat Surgery, Tracheostomy, Gastric Bypass Surgery, Gastrostomy, Bowel Surgery, Nephrectomy, Transurethral Resection, Joint Replacement, Open Reduction Internal Fixation, Arthroscopy, Neurologic Surgery, Brain Shunt, Mastectomy, Lumpectomy, Hysterectomy, Tubal Ligation, Section, Vasectomy or Organ Transplant Social History SMOKING STATUS: Current some day smoker SECOND HAND EXPOSURE: No SUBSTANCE USE: does not use ED Exam Narrative Physical exam: As noted in HPI. Course Quality Measures none Orders Category Date Time Status Bedside COVID-19 Antigen Test NOW Care 11/17/24 02:58 Active Bedside Influenza A&B Antigen Test NOW Care 11/17/24 02:58 Completed COVID-19 Screening Questionnaire NOW Care 11/17/24 05:[address] Screening NOW Care 11/17/24 02:59 Active Decision to Admit X1 Care 11/17/24 05:51 Active Saline [Insert IV] NOW Care 11/17/24 02:58 Active Consult to Cardiology Stat Cons 11/17/24 05:47 Ordered Consult to Nephrology Stat Cons 11/17/24 05:[address] angio chest Stat Exams 11/17/24 02:59 Taken BMP [Basic Metabolic Panel] Stat Lab 11/17/24 03:15 Completed BNP [B-Type Natriuretic Peptide] Stat Lab 11/17/24 03:15 Completed CBC Stat Lab 11/17/24 03:15 Completed D-Dimer Stat Lab 11/17/24 03:15 Completed HCG Qualitative,Urine Stat Lab 11/17/24 03:08 Completed Magnesium Stat Lab 11/17/24 03:15 Completed PT [Prothrombin Time with INR] Stat Lab 11/17/24 03:15 Completed PTT [Partial Thromboplastin Time] Stat Lab 11/17/24 03:15 Completed Troponin I Stat Lab 11/17/24 03:15 Completed UA, C/S IF [Urinalysis, C/S if Indicated] Stat Lab 11/17/24 03:08 Completed Urine Culture Stat Lab 11/17/24 03:08 Received Dextrose 50% Syr [D50w Syringe Abboject] Med 11/17/24 04:45 Discontinued 25 ml IVP X1 ONE HYDROmorphone INJ [Dilaudid Inj] Med 11/17/24 02:58 Discontinued 1 mg IVP X1 ONE Ondansetron Inj [Zofran Inj] Med 11/17/24 02:58 Discontinued 4 mg IVP X1 ONE cefTRIAXone/D5w 1gm IV premix [Rocephin/D5w 1gm IV Med 11/17/24 03:25 Discontinued premix] 1 g in 50 ml IV X1 Vital Signs Vital signs: Vital Signs Temperature 98.1 F 11/17/24 01:49 Pulse Rate 95 11/17/24 01:49 Respiratory Rate 18 11/17/24 01:49 Blood Pressure 149/93 H 11/17/24 01:49 Pulse Oximetry (%) 98 11/17/24 01:49 Oxygen Delivery Method Room Air 11/17/24 01:49 Back Pain / Injury MDM Narrative MDM Narrative:: 44yo female with a history of renal disease on HD (M/W/F) s/p recent fistula placed on 10/20/2024, DM, HTN presents to the ED for a chief complaint of upper back pain. Patient was seen here couple days ago for similar symptoms, but states her pain has gotten progressively worse. She does have nausea and a decreased appetite. No vomiting, fevers, or cough. Pain radiates into the neck and upper chest. No other complaints reported. Patient data External records reviewed:: [facility] previous records (Per chart review, patient was seen here on 11/10/24 for thoracic back pain.) Clinical information provided by:: patient Social determinants that could affect healthcare access:: none Patient has the following chronic illnesses:: renal disease on HD (M/W/F) s/p recent fistula placed on 10/20/2024, DM, HTN How is presenting disease/condition affected by chronic disease/condition?: uneffected by Evaluation data The following diagnostics were reviewed and interpreted by me:: lab results and radiology exam(s) Lab and/or radiology exams considered but not ordered:: none Interpretation Summary: I reviewed all diagnostic test results. My review of the CT angio chest report is complex moderate pericardial effusion, suspicious for pericarditis. Blood tests remarkable for D-Dimer 1200, BNP 406, Creatinine 5.5, Glucose 57. UA showed positive leukocyte Estrace, 49 WBC, and bacteria. Medications / Prescriptions Medications or Prescriptions considered but not ordered:: one Medication administrations:: Medication Administration History Discontinued Medications Dextrose (Dextrose 50%-Water Inj 50 Ml Syringe) 25 ml IVP X1 ONE Stop: 11/17/24 04:46 Last Admin: 11/17/24 05:02 Dose: 25 ml Documented By: COURTNEY Hydromorphone HCl (Hydromorphone Inj 2 Mg/Ml Vial) 1 mg IVP X1 ONE Stop: 11/17/24 02:59 Last Admin: 11/17/24 03:19 Dose: 1 mg Documented By: CHARLIE Ceftriaxone Sodium/Dextrose (Rocephin/D5w 1gm Iv Premix) 1 g in 50 mls @ 100 mls/hr IV X1 ONE Stop: 11/17/24 03:54 Last Infusion: 11/17/24 05:07 Dose: Infused Documented By: Admin: 11/17/24 03:38 Dose: 100 mls/hr Documented By: CHARLIE Ondansetron HCl (Ondansetron Inj 2 Mg/Ml Inj 2 Ml) 4 mg IVP X1 ONE; Protocol Stop: 11/17/24 02:59 Last Admin: 11/17/24 03:19 Dose: 4 mg Documented By: CHARLIE Rocephin, Zofran, Dilaudid, D50 Consultations Consultation(s) initiated? (list below): Yes Consultation #1 (Physician, Specialty, Details): I discussed the case with our ultrasonic welding machine operator on-call and patient's paper twister tender (Dr. Livingston) and our hospitalist. About the presentation and exam and diagnostics and treatments here. And need of further care in the hospital. Will accept the patient. Diagnosis Differential diagnosis back pain/injury: lumbar radiculopathy, sciatica, strain of lumbar region, renal colic, pyelonephritis, thoracic back pain, AAA and discitis Most likely diagnosis given after review of the tests above:: At this point, diagnoses include pericardial effusion, UTI, hypoglycemia, ESRD. Admission Indicated Admission indicated?: indicated Explain why admission is indicated or not indicated:: Pericardial effusion, UTI, hypoglycemia, ESRD. Admission Request Was there a request for admission?: Yes Admission Attestation Admission request attestation: Discussed case with Hospitalist service regarding admission. Discussed patients ED course, exam findings, labs, and radiology results. The Hospitalist [agrees] to accept the patient for admission. Disposition Plan Disposition Plan: Admit Discharge Plan Plan Patient Disposition: Admit Acute Care w/in Hospital Prescriptions/Referrals Prescriptions/Med Rec: No Action cyclobenzaprine 10 mg tablet 10 mg PO HS PRN (Reason: muscle spasm) Qty: 10 0RF (DME) nebulizer and compressor Device See Rx Instructions .Route Qty: 1 0RF Rx Instructions: As directed lorazepam 0.5 mg tablet 0.5 mg PO HS Patient Comments: TAKE 1 TABLET BY MOUTH EVERY EVENING Baqsimi 3 mg/actuation spray,non-aerosol 3 mg intranasal QDAY PRN (Reason: hypoglycemia) Qty: 1 0RF amlodipine 5 mg tablet 5 mg PO DAILY Patient Comments: TAKE 1 TABLET BY MOUTH DAILY FOR BLOOD PRESSURE insulin glargine [Basaglar KwikPen U-100 Insulin] 100 unit/mL (3 mL) insulin pen 25 unit subcut QAM Qty: 15 0RF (DME) pen needle, diabetic [1st Tier Unifine Pentips] 32 gauge x 5/32 needle See Rx Instructions .Route Qty: 100 0RF Rx Instructions: As directed cephalexin 500 mg capsule 500 mg PO TID Qty: 21 0RF ondansetron 4 mg tablet,disintegrating 4 mg PO Q8H PRN (Reason: nausea and vomiting) Qty: 14 0RF hydrocodone-acetaminophen 5-325 mg tablet 1 tab PO TID MDD 3 PRN (Reason: pain) Qty: 20 0RF Referrals: Khadijah Veronica PA-C [Primary Care Provider] - In 1 week Problem List Clinical Impression: Pericardial effusion, UTI (urinary tract infection), Hypoglycemia, ESRD on dialysis Patient/Caregiver Discharge Instructions Print Language: Haitian Stand Alone Forms: Hannah Award Info., Patient Portal Info Letter
--- NOTE | 2024-11-17 02:59 | XR_ITS ---
Examination: CTA chest with intravenous contrast 2-D reconstructions 3-D reconstructions, vascular Date and time of exam: November 17, 2024 at 0428 hours INDICATIONS: Chest pain radiating to back with shortness of breath today CTDI: vol (mGy) 9.79 DLP: (mGycm) 390 Technique: Multiple axial sections of the thorax have been obtained. 3 mm slice thickness, from below the hemidiaphragms to above the apices of the lungs. Mediastinal and lung density settings have been obtained. 2-D sagittal and coronal reconstructions. 3-D angiographic renderings, 3-D volume renderings, 3D post processing, vascular maximum intensity projections obtained. Contrast administered is 60 cc Isovue 300 Low dose protocols were performed. One or more of the following dose reduction techniques were used; automated exposure control, adjustment of the mA and/or KV according to patient size, use of iterative reconstruction technique. Findings: No thoracic aortic aneurysm dilatation or dissection No pulmonary artery filling defects Pericardial effusion measuring up to 26 mm Mild enlargement cardiac technologist Lower wall of the esophagus is thickened No lobar pneumonia or pulmonary edema Significant calcification left anterior descending coronary artery Hepatomegaly partly visualized at least 19 cm Spleen is not enlarged IMPRESSION: Negative for pulmonary artery emboli Mild enlargement cardiac contour Pericardial effusion measuring up to 26 mm No pneumonia or pulmonary edema
[2024-11-17 03:15] LABS: Collection Type, Urine Clean Catch
[2024-11-17] MEDS: ONDANSETRON INJ 2 MG/ML INJ 2 ML 4 MG IVP (03:19)
[2024-11-17] MEDS: HYDROmorphone INJ 2 MG/ML VIAL 1 MG IVP (03:19)
[2024-11-17 03:20] LABS: HCG Qualitative,Urine Negative
[2024-11-17 03:23] LABS: Bacteria,Urine Rare; Bilirubin,Urine Negative (Negative); Blood,Urine Negative (Negative); Clarity,Urine Clear (Clear/Hazy); Color,Urine Lt-Yellow (Lt Yel-Yel); Culture Indicated,Urine Yes; Glucose, Urine 3+ (Negative); Ketones,Urine Negative (Negative); Leukocyte Esterase,Urine Positive (Negative); Nitrite,Urine Negative (Negative); PH,Urine 8.5 (5.0-7.0); Protein,Urine 3+ (Neg - Trace); RBC,Urine 7 /hpf (0-3); Specific Gravity,Urine 1.019 (1.001-1.035); Squamous Epithelial Cell,Urine 7 /hpf (0-5); Urobilinogen,Urine Negative mg/dL (0.0-1.0); WBC,Urine 49 /hpf (0-5)
[2024-11-17 03:36] LABS: Basophils # (Auto) 0.1 Thou/mm3 (0.0-0.2); Basophils % (Auto) 1 % (0-2.5); Eosinophils # (Auto) 0.2 Thou/mm3 (0.0-0.5); Eosinophils % (Auto) 2 % (0-10); Hematocrit 28.1 % (36.0-46.0); Immature Granulocytes Auto 0.07 Thou/mm3 (0.00-0.00); Lymphocytes # (Auto) 3.7 Thou/mm3 (1.0-4.8); Lymphocytes % (Auto) 29 % (10-50); Mean Corpuscular HGB Conc 31.3 g/dl (31.0-37.0); Mean Corpuscular Hemoglobin 26.3 pg (25.0-35.0); Mean Corpuscular Volume 84 fL (80-100); Monocytes # (Auto) 0.9 Thou/mm3 (0.0-0.8); Monocytes % (Auto) 7 % (0-12); Neutrophils # (Auto) 7.7 Thou/mm3 (1.8-7.7); Neutrophils % (Auto) 61 % (37-80); Nucleated Red Blood Cell # 0.00 Thou/mm3 (0.00-0.00); Nucleated Red Blood Cell % 0 /100 WBC (0); Platelet Count 455 Thou/mm3 (140-440); RDW Standard Deviation 53.5 fL (36.4-46.3); Red Blood Count 3.34 Miln/mm3 (4.00-5.20); White Blood Count 12.6 Thou/mm3 (3.6-11.0)
[2024-11-17 03:38] LABS: Hemoglobin 8.8 g/dL (12.0-16.0)
[2024-11-17] MEDS: cefTRIAXone/D5w 1gm IV premix 1 G/50 ML BAG IV (03:38)
[2024-11-17 03:51] LABS: D-Dimer 1200 ng/mL (<600)
[2024-11-17 03:53] LABS: B-Type Natriuretic Peptide 406 pg/mL (0-100)
[2024-11-17 03:57] LABS: Anion Gap 7 (7-16); BUN/Creatinine Ratio 5 Ratio (12-20); Blood Urea Nitrogen 26 mg/dL (9-23); Calcium 8.4 mg/dL (8.3-10.6); Carbon Dioxide 32.7 mMol/L (20.0-31.0); Chloride 95 mMol/L (98-107); Creatinine (Component) 5.5 mg/dL (0.6-1.3); Estimated Creatinine Clearance 11.6 mL/min (>60); Glucose 57 mg/dL (74-106); Magnesium 1.7 mg/dL (1.6-2.6); Osmolality,Calculated 272 (275-295); Potassium 5.7 mMol/L (3.4-5.1); Sodium 135 mMol/L (136-145); Troponin I < 0.020 ng/mL (0.0-0.045); eGFR 9 See Note
[2024-11-17 04:16] LABS: INR 1.1 (0.9-1.3); Partial Thromboplastin Time 38.7 Seconds (22.0-36.0); Prothrombin Time 11.6 Seconds (9.0-12.2)
[2024-11-17] MEDS: DEXTROSE 50%-WATER INJ 50 ML SYRINGE 25 ML IVP (05:02)
--- NOTE | 2024-11-17 05:31 | PRELIM_ITS ---
CT angiogram of the chest with intravenous contrast (axial sections with sagittal and coronal reformats) November 17, 2024 0428 hours Clinical History: SOB Severe upper back pain Technique:Helical axial sections with sagittal and coronal reformats of the chest were obtained with intravenous contrast. Iterative reconstruction technique was employed to reduce patient radiation exposure. 3D/MIP reconstructed images were also provided. Comparison: None. Findings: There is no filling defect within the pulmonary artery divisions to suggest pulmonary thromboembolism. The mediastinum demonstrates no evidence of mass or lymphadenopathy. The thoracic aorta is unremarkable. There is complex moderate pericardial effusion. Bilateral lungs atelectasis. No evidence of pleural effusion or pneumothorax. Degenerative changes of the imaged portions of the spine. No acute fractures. Irregular liver margins. Status postcholecystectomy. Coronary arteries calcifications. Dilated left atrium. Impression: No CT evidence of pulmonary thromboembolism. Complex moderate pericardial effusion suspicious for pericarditis. Dilated left atrium. Coronary arteries calcifications. If acute myocardial infarction is clinically suspected consider correlation with troponin. Cirrhosis. Report Electronically Signed By: Nicolás Perez 11/17/2024 5:30:59 AM [EST]
--- NOTE | 2024-11-17 06:20 | EVENTNT_ITS ---
Documentation for date of: 11/17/24 Event Note Event Note: Received a call from ED for 44-year-old female with past medical history of ESRD on dialysis Friday/Friday/Friday with nephrology Dr. Livingston. Patient presenting with chest pain radiating to the back and on workup CT of the chest shows complex moderate pericardial effusion suspicious for pericarditis, dilated left atrium, coronary arteries calcified and cirrhosis. ED provider contacted industrial conveyor belt repairer, Dr. Andrade recommended admitting the patient and having her worked up. On assessment, patient is alert oriented x 3 and answering questions appropriately, distant heart sounds but lungs are clear to auscultation bilate rally, patient has left BKA. Noted to have elevated potassium of 5.5 and on telemetry strip appeared to have peaking T waves; moreover, gave IV insulin with D50 amp, albuterol treatment and IV calcium gluconate. Will sign out patient to morning hospitalist team. Uriah Stafford, DO PGY-2 Internal Medicine - [facility]
[2024-11-17] MEDS: DEXTROSE 50%-WATER INJ 50 ML SYRINGE IVP (06:49)
--- NOTE | 2024-11-17 06:50 | PC.NURSE ---
CONFIRMED IV INSULIN [address] DYKES, INFORMED HIM PT'S PREVIOUS FSBS WAS 53 AND D50 20MLS WAS NEEDED. PT'S CURRENTLY FSBS IS AND NO SYMPTOMS OF HYPOGLYCEMIA. PER DR DYKES GIVEN 10 UNITS IV TO BRING POTASSIUM DOWN.
[2024-11-17] MEDS: INSULIN HUM REGULAR 1 UNIT/0.01 ML (PER UNIT) 10 UNIT IV (06:53)
[2024-11-17] MEDS: CALCIUM GLUCONATE 10% INJ 1 GM/10 ML VIAL IV (06:54)
[2024-11-17] MEDS: ALBUTEROL RT 2.5 MG/3 ML NEBU INH (07:06)
--- NOTE | 2024-11-17 08:16 | ECHO_ITS ---
Transthoracic Echo Report Ht (in): 61 Wt (lb): 156 Exam Location: Echo Lab Status: Inpatient Associate Professor Of English: Argelia Romero Indications: Procedure Performed: BP: 172 / 93 HR: 109 Technical Quality: Technically difficult study MEASUREMENTS (Male / Female) Normal Values 2D ECHO LV Diastolic Diameter PLAX 5.1 cm 4.2 - 5.9 / 3.9 - 5.3 cm LV Systolic Diameter PLAX 3.5 cm IVS Diastolic Thickness 0.7 cm 0.6 - 1.0 / 0.6 - 0.9 cm LVPW Diastolic Thickness 1.0 cm 0.6 - 1.0 / 0.6 - 0.9 cm LV Relative Wall Thickness 0.3 LVOT Diameter 1.7 cm Aortic Root Diameter 2.8 cm LA Systolic Diameter LX 3.6 cm 3.0 - 4.0 / 2.7 - 3.8 cm LA Volume Index 47.6 cm?/m? 16 - 28 cm?/m? M-MODE Aortic Root Diameter MM 2.6 cm LA Systolic Diameter MM 4.5 cm LA Ao Ratio MM 1.7 AV Cusp Separation MM 1.9 cm DOPPLER AV Peak Velocity 154.5 cm/s AV Peak Gradient 9.5 mmHg AV Mean Gradient 5.0 mmHg AV Velocity Time Integral 29.9 cm LVOT Peak Velocity 111.0 cm/s LVOT Peak Gradient 4.9 mmHg LVOT Velocity Time Integral 23.4 cm LVOT Cardiac Index 3270.8 cm?/min?m? AV Area Cont Eq vti 1.8 cm? AV Area Cont Eq pk 1.6 cm? MV Area PHT 5.9 cm? MR Peak Velocity 595.5 cm/s MR Peak Gradient 141.8 mmHg Mitral E Point Velocity 123.0 cm/s Mitral A Point Velocity 121.0 cm/s Mitral E to A Ratio 1.0 LV E' Lateral Velocity 11.0 cm/s Mitral E to LV E' Lateral Ratio 11.2 LV E' Septal Velocity 8.4 cm/s Mitral E to LV E' Septal Ratio 14.7 TR Peak Velocity 312.5 cm/s TR Peak Gradient 39.1 mmHg PV Peak Velocity 129.0 cm/s PV Peak Gradient 6.7 mmHg FINDINGS Left Ventricle Normal left ventricular size, wall thickness, systolic function with no obvious regional wall motion abnormalities. Normal left ventricular diastolic filling pattern for age. The ejection fraction is visually estimated at 55-60%. IVS flattened in systole and diastole consisten with RV pressure and volume overload. Right Ventricle The right ventricular size is mildy increased with normal systolic function. Left Atrium Moderately increased left atrial volume 47.6 mL/m?. Right Atrium The right atrium is normal by two-dimensional imaging, color flow and Doppler imaging with no structural abnormalities, no thrombus formation present. Atrial Septum The interatrial septum appears normal with no evidence of a shunt. Aorta The aorta is normal by two-dimensional, color flow and Doppler interrogation. Mitral Valve [id number] mitral regurgitation. Aortic Valve The aortic valve is trileaflet and normal by two-dimensional, color flow and Doppler interrogation. There is no significant aortic valve regurgitation. Tricuspid Valve The tricuspid valve is normal by two-dimensional, color flow and Doppler interrogation. There is mild tricuspid valve regurgitation. Pulmonic Valve The pulmonic valve is not well visualized. There is no significant pulmonic valve regurgitation. Vessels The pulmonary artery appears normal. The inferior vena cava pulmonary and hepatic veins appear normal. Pericardium There is a tiny, hemodynamically insignificant pericardial effusion. CONCLUSIONS Indication: Pericardial effusion ESRD on HD. Small posterior pericardial effusion less than 0.8 cm. Appears loculated. No evidence of cardiac tamponade. Normal LV size and function. Estimated EF of 55 to 60%. Diastolic function could not be assessed. Mildly dilated RV with normal RV function. Estimated RVSP moderately elevated at around 40-45 mmHg IVS flat in both systole and diastole consisten with RV pressure and volume overload. Mild MAC with mild to moderate MR. Mild TR. Moderately dilated LA and mildly dilated RA. Dilated IVC. Cody Andrade (Electronically Signed) Final Date: 18 November 2024 23:43
[2024-11-17] MEDS: HYDROcodone/APAP 5/325 TABLET 1 TAB PO ×2 (12:04→18:35)
[2024-11-17] MEDS: HEPARIN SOD INJ 5000 UNIT/ML VIAL SC ×2 (12:07→21:40)
--- NOTE | 2024-11-17 12:17 | PC.NURSE ---
PATIENT IN DIALYSIS FOR 2 HOURS, JUST RETURNED, ORDERED MEDICATION LATE DUE TO PATIENT IN DIALYSIS. PROVIDER SHAY AWARE.
--- NOTE | 2024-11-17 12:28 | PC.CC ---
Patient is 44 year-old female who presents to the hospital for pericarditis. WHITWSabrina and SALES DESIGNER Student Nisha made [id number] contact with patient. ASW introduced self, role, and reason for visit. Patient appeared alert and oriented to self, location, and situation. Patient provided consent for SALES DESIGNER to remain in the room during assessment. Patient was pleasant and engaged in initial assessment. Patient confirmed information on demographics and reports she lives with her sister, Gisella Jimenes. Patient reports her sister is also her medical decision maker in the event she is unable to make her own medical decisions. Patient reports she uses a wheelchair to ambulate and her sister Gisella helps her with ADLs. Patient reports she does not use any oxygen. Patient is a dialysis patient Friday, Friday, Friday in [place]. Patient's primary provider is Khadijah Veronica and she uses [facility] for prescription medications. Patient plans to return back home upon being discharged. clinical services consultant to follow up with any discharge needs.
[2024-11-17] MEDS: VANCOMYCIN/NS 1 GM IVPB 200 ML IV (12:43)
[2024-11-17] MEDS: HYDROmorphone INJ 2 MG/ML VIAL 0.25 MG IVP (14:13)
--- NOTE | 2024-11-17 14:42 | ESHP_ITS ---
<Statement entered by Kitty Thomas MD - 11/17/24 21:20> In summary: 44-year-old female PMHx of ESRD HD MWF, recent LUE fistula placed on 10/20/2024, T2DM, HTN, presented initially with upper back and bilateral posterior shoulder pain with CTA findings of 26 mm pericardial effusion, and found to have pleuritic chest pain suggestive of pericarditis. Per chart review, she was in the ED on 11/10 with blood culture growing GPC. The likely source of pericarditis possibly blood-borne, recent fistula, or less likely uremic given BUN not significantly elevated. Currently on broad-spectrum ANTIBIOTICS. Cardiology on board. Continued on inpatient HD with nephrology. Case was discussed with attending physician. Kitty Thomas, PGY II This document was transcribed using voice recognition technology. Minor inaccuracies may be present. Documentation for date of: 11/17/24 HPI History of Present Illness History of present illness: Jo Bajwa is a 44yo female with PMHx renal disease on HD (M/W/F) s/p recent fistula placed on 10/20/2024, DM, HTN presents to the ED for a chief complaint of upper back pain across the posterior shoulders on both sides. Patient was seen here couple days ago for similar symptoms, but states her pain has gotten progressively worse since 4 dyas ago. Admits to nausea, and decreased appetite. Denies vomiting, recent fevers, or cough. Pain radiates into the neck and upper chest. No other complaints reported. PMHx: in addition to above, seizures, which take place once every few months (4) where for a couple minutes her muscles go into spasm, especially her upper extremities. Has had it for 14 years. She doesnt recall those episodes after. In the past, pt would feel confused for hours post seizure, but over time the post ictal phase has shortened. 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 cholecystectomy, catheter implant + fistula creation for dialysis FHx: Mother, , had kidney disease requiring HD. 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 had seizure disorder. Father, living, and has chronic asthma. Sister with epilepsy. SHx: Denies smoking. Denies alcohol use. Remote use of methamphetamines. Does not work. Reason for Admission: On imaging, pt was found to have new pericardial effusions. PE was remarkable for chest pain that improves with leaning forward. Pt was admitted for workup and treatment of pericarditis and work up of her bilateral upper back pain. Exam Vital Signs Temp Pulse Resp BP Pulse Ox O2 Del Method 97.9 F 100 16 143/96 H 96 Room Air 11/17/24 14:17 11/17/24 14:17 11/17/24 14:17 11/17/24 14:17 11/17/24 14:17 11/17/24 14:17 Narrative Exam General: Alert and oriented x3, No apparent distress. Skin: Intact, Warm, no rashes. HEENT: Normocephalic, Atraumatic. Normal neck range of motion, Supple. Trachea midline. Respiratory: Lungs are clear to auscultation, Breath sounds are equal bilaterally with equal chest expansion. Cardiovascular: RRR, normal S1, S2, No murmurs. Distal pulses 2+ Abdomen: Abdomen soft, non-distended, without erythema, or lesions. Normotensive bowel sounds x4. Percussion tympanic. Palpation nontender in all four quadrants. No organomagely. No guarding or rebound present. Extremities: Lt below knee amputation. Site of incision for dialysis fistula on the left arm medial side. Erythema and skin hyperkeratosis around the neck, spreading down the back. muscle hypertonicity Lt posterior shoulder. Musculoskeletal: No swelling, moving all 4 extremities with FROM Neurologic: Alert, Oriented, No focal deficits. Moving all 4 extremities spontaneously Psych: Thoughts linear and responses appropriate. Results: Labs 11/18/24 05:02 11/18/24 05:02 Labs: Short CBC 11/17/24 Range/Units 03:15 WBC 12.6 H (3.6-11.0) Thou/mm3 Hgb 8.8 L D (12.0-16.0) g/dL Hct 28.1 L (36.0-46.0) % Plt Count 455 H D (140-440) Thou/mm3 BMP 11/17/24 03:15 Sodium 135 L Potassium 5.7 H Chloride 95 L Carbon Dioxide 32.7 H BUN 26 H Creatinine 5.5 H* D Glucose 57 L Calcium 8.4 Cardiac Enzymes 11/17/24 Range/Units 03:15 Troponin I < 0.020 (0.0-0.045) ng/mL Urine 11/17/24 Range/Units 03:08 Urine Color Lt-Yellow (Lt Yel-Yel) Urine Clarity Clear (Clear/Hazy) Urine pH 8.5 H (5.0-7.0) Ur Specific [place] 1.019 (1.001-1.035) Urine Protein 3+ A (Neg - Trace) Urine Glucose (UA) 3+ A (Negative) Quality Measures Quality Measures none Medications Home Medications and Allergies Home Medications ?Medication ?Instructions ?Recorded ?Confirmed ?Type amlodipine 5 mg tablet 5 mg PO DAILY 05/18/2411/17 History sevelamer carbonate 2.4 gram oral 2.4 g PO TID 5 11/17/24 History powder packet silver sulfadiazine 1 % topical 1 applic topical DAILY 11/17/24 11/17/24 History cream tramadol 50 mg tablet 50 mg PO Q6H PRN pain 11/17/24 History Allergies Allergy/AdvReac Type Severity Reaction Status Date / Time amoxicillin (From Augmentin) Allergy Severe Swelling Verified 11/17/24 01:47 of Lip/Tongue/Throat clavulanic acid (From Allergy Severe Swelling Verified 11/17/24 01:47 Augmentin) of Lip/Tongue/Throat Visit Medications Acetaminophen (Acetaminophen 325 Mg Tablet) 650 mg PO Q6H PRN PRN Reason: Fever >100 or pain 1-3 Stop: 12/17/24 10:44 Hydrocodone Bitart/Acetaminophen (Hydrocodone/Apap 5/325 Tablet) 1 tab PO Q4HR PRN PRN Reason: PAIN SCALE 4-6 (Moderate Stop: 11/22/24 10:45 Last Admin: 11/17/24 12:04 Dose: 1 tab Amlodipine Besylate (Amlodipine Besylate 5 Mg Tablet) 5 mg PO QDAY NASREEN Stop: 12/17/24 10:59 Last Admin: 11/17/24 12:05 Dose: 5 mg Dextrose (Dextrose 50%-Water Inj 50 Ml Syringe) 25 ml IV Q15MIN PRN PRN Reason: BG 50-70 responsive npo pt Stop: 12/17/24 10:45 Dextrose (Dextrose 50%-Water Inj 50 Ml Syringe) 50 ml IV Q15MIN PRN PRN Reason: BG <50 OR BG <70 & pt unresponsive Stop: 12/17/24 10:45 Glucagon (Glucagon Inj 1 Mg Vial) 1 mg IM Q15MIN PRN PRN Reason: BG <70, and no IV access Heparin Sodium (Porcine) (Heparin Sod Inj 5000 Unit/Ml Vial) 5,000 unit SC Q12HR [facility] Stop: 12/01/24 10:59 Last Admin: 11/17/24 12:07 Dose: 5,000 unit Heparin Sodium (Porcine) (Heparin Sod Inj 1000 Unit/Ml Vial 10 Ml) 4,100 unit INDWELLCAT X1 PRN PRN Reason: DIALYSIS Stop: 12/01/24 10:43 Albumin Human (Albuminar-25 Ivpb) 25 gm in 100 mls @ 100 mls/min IV PRN PRN PRN Reason: DIALYSIS Stop: 11/20/24 10:43 Insulin Human Lispro (Insulin Lispro (Admelog) 1 Unit/0.01 Ml Unit) 0 unit SC AC [facility]; Protocol Stop: 12/17/24 11:29 Last Admin: 11/17/24 12:58 Dose: Not Given Ondansetron HCl (Ondansetron Inj 2 Mg/Ml Inj 2 Ml) 4 mg IVP Q6H PRN; Protocol PRN Reason: NAUSEA OR VOMITING Stop: 12/17/24 10:45 Pantoprazole Sodium (Pantoprazole Inj 40 Mg Vial) 40 mg IVP QDAY [facility] Stop: 12/17/24 10:59 Last Admin: 11/17/24 12:13 Dose: 40 mg Pharmacy Consult (Vancomycin Pharmacy To Dose 1 Each Each) 1 each IV QDAY PRN PRN Reason: CONSULT Stop: 12/17/24 08:59 Pharmacy Consult (Pharmacy Renal Dose Adjustment 1 Ea) 1 each XX PRN PRN PRN Reason: CONSULT Stop: 12/17/24 08:12 Discontinued Medications Albuterol (Albuterol Rt 2.5 Mg/3 Ml Nebu) 2.5 mg INH X1 ONE Stop: 11/17/24 06:22 Last Admin: 11/17/24 07:06 Dose: 2.5 mg Calcium Gluconate (Calcium Gluconate 10% Inj 1 Gm/10 Ml Vial) 1 gm IV X1 ONE Stop: 11/17/24 06:39 Last Admin: 11/17/24 06:54 Dose: 1 gm Dextrose (Dextrose 50%-Water Inj 50 Ml Syringe) 25 ml IVP X1 ONE Stop: 11/17/24 04:46 Last Admin: 11/17/24 05:02 Dose: 25 ml Dextrose (Dextrose 50%-Water Inj 50 Ml Syringe) 50 ml IVP X1 ONE Stop: 11/17/24 06:22 Last Admin: 11/17/24 06:49 Dose: 50 ml Hydromorphone HCl (Hydromorphone Inj 2 Mg/Ml Vial) 1 mg IVP X1 ONE Stop: 11/17/24 02:59 Last Admin: 11/17/24 03:19 Dose: 1 mg Hydromorphone HCl (Hydromorphone Inj 2 Mg/Ml Vial) 0.25 mg IVP X1 ONE Stop: 11/17/24 13:32 Last Admin: 11/17/24 14:13 Dose: 0.25 mg Ceftriaxone Sodium/Dextrose (Rocephin/D5w 1gm Iv Premix) 1 g in 50 mls @ 100 mls/hr IV X1 ONE Stop: 11/17/24 03:54 Last Infusion: 11/17/24 05:07 Dose: Infused Vancomycin/Sodium Chloride (Vancomycin/Ns 1 Gm Ivpb) 200 mls @ 120 mls/hr IV X1 ONE Stop: 11/17/24 10:09 Last Admin: 11/17/24 12:43 Dose: 120 mls/hr Insulin Human Regular (Insulin Hum Regular 1 Unit/0.01 Ml (Per Unit)) 10 unit IV X1 ONE Stop: 11/17/24 06:22 Last Admin: 11/17/24 06:53 Dose: 10 unit Ondansetron HCl (Ondansetron Inj 2 Mg/Ml Inj 2 Ml) 4 mg IVP X1 ONE; Protocol Stop: 11/17/24 02:59 Last Admin: 11/17/24 03:19 Dose: 4 mg Assessment & Plan Plan In summary, Jo Bajwa is 44F with PMHx of renal disease on HD (M/W/F) s/p recent fistula placed on 10/20/2024, DM, HTN, and seizure disorder who presented to the ED c/o of upper back pain across both shoulders. Pt was found to have 26ml of pericardial effusion, and is being admitted for the work up of pericarditis. #Perciarditis Ddx: thoracic back pain, ADHF, pneumonia, PE CTA of chest: Negative for pulmonary artery emboli Mild enlargement cardiac contour Pericardial effusion measuring up to 26 mm No pneumonia or pulmonary edema Plan: IV ceftriaxone 1g x1 multimdodal pain control [place] 5/325 PRN Hydromorphone inj 0.25mg PRN EKG ordered CBC, CMP, Mg, Ca morning draw #UTI #ESRD Pt receives HD MWF, received one on Friday the and another one today at the hospital -on schedule. #hx of seizures Pt with a hx of life stressors. Seizures could also be 2/2 electrolyte deragements, eg, hyponatremia, in the setting of ESRD. #DM Pt on sliding scale insulin #HTN amlodipine PO 5mg Qday #asthma albuterol 25mg PRN Health maintanance: Diet: Routine PPx GI: PPx DVT: code status:Routine Case was discussed with attending physician, Dr. Whitten, and senior resident Dr Thomas. Nael Marcus, DO PGY I Attending Provider Attestation/Addendum Patient seen and examined. She has possible pericarditis complains of upper back she was found to have pericardial effusion. No evidence of tamponade. she is on hemodialysis.Patient with The patient was referred to cardiology service. She will continue on hemodialysis. Discussed with housestaff. Monitor hemodynamic status..
--- NOTE | 2024-11-17 15:07 | PD.RESCONSUL ---
HPI Data of Consult Patient: known to practice within the last 3 years Consult date: 11/17/24 Requesting Physician: Ren Whitten MD Admitting Provider: Ren Whitten MD Attending Provider: Ren Whitten MD Primary Care Provider: Khadijah Veronica PA-C Consult Narrative Reason for consult: ESRD on HD MWF History of present illness: Mrs. Bajwa is a 44-year-old female with a past medical history of ESRD on HD MWF, status post fistula placement on 10/20/2024, T2DM, HTN, asthma, and status post left leg amputation, who presented to the ED from home with chief complaint of neck, back, and chest pain. Nephrology was consulted for ESRD management as Dr. Orantes is well-known to this patient. The patient presented to the ED around 0146 on 11/17 due to worsening neck and back pain that started in 11/09 and chest pain that started a few days ago. The patient was seen in the ED on 11/10 for neck and back pain. CT head and cervical/thoracic spine was negative for any acute processes. The patient was given morphine during that visit, which knocked her out for about 2 hours, but the patient woke up with pain afterwards. The patient was discharged from the ED on 11/10 on cyclobenzaprine, [place], and p.o. steroids. The patient stated that these medications helped her initially, but she quickly ran out of her medications. Since being discharged from the ED on 11/10, the pain has gotten worse with chest pain appearing a few days prior. According to family member, the patient has significant difficulty sleeping and now frequently cries because of her neck and back pain. The chest pain is relieved upon sitting forward, but the patient prefers laying down as that improves her neck and back pain. She denies any recent illness. The patient is primarily concerned with her neck and back pain. In the ED, a CT angiogram chest was done which showed pericardial effusion measuring up to 26 mm, mild enlargement of cardiac contour, and significant calcification of LAD coronary artery. D-dimer 1200, BNP 406, troponins negative x2. The patient was admitted for suspicion of pericarditis. Potassium was noted to be elevated at 5.5, with peaked T waves, and resulting in treatment IV insulin with D50, albuterol, and IV calcium gluconate. Prior to having a dialysis session, the patient's BUN was 26, creatinine 5.5, GFR 9. The patient was taken to dialysis, and dialysis was performed for 2 hours and 35 minutes, with a net total of 3 L fluid removed. Throughout the visit patient's family member was rubbing the patient's lower cervical and upper thoracic back, which the patient stated that it provided some support for her. Pain seem to be centered around left medial supraspinatus area, with the area warm to touch and muscles noticeably tense to palpation. The patient's family member also brought up the patient's history of spells named as seizures . According to the patient's family member, the spells started occurring around perhaps 15 years ago. The patient was noted to be stressed out after recently moving during that time, and had a spell where the patient had whole body shaking and rigidity, and ran out of the house . Since then, the patient would have spells every few months, usually in the evening, but had since over time decreased in frequency without any intervention. Spells would last for a few minutes and it is unclear if the patient any postictal symptoms. Initially, family member would state that the patient would be confused for 12 to 24 hours after her spell, but upon further questioning, the patient's family members stated that the patient had returned to baseline mental status immediately after the end of a spell. The patient has not had a formal EEG performed and is not currently on any antiepileptic medication. Family member reported that the patient in the past has bit her tongue, but no reports of loss of bladder control or bowel control during episodes. Per the patient's family member, the patient's mother had a history of seizures and sister had epilepsy that could be triggered by flashing lights. Patient endorses heart palpitation. Patient denies headache, fever, chill, cough, shortness of breath, abdominal pain, and dysuria. cc:: cc: Ren Whitten MD Review of Systems Review of Systems Systems Reviewed: All systems reviewed, normal except as documented Exam Vital Signs Temp Pulse Resp BP Pulse Ox O2 Del Method 97.9 F 100 16 143/96 H 96 Room Air 11/17/24 14:17 11/17/24 14:17 11/17/24 14:11/17/24 14:11/17/24 14:17 11/17/24 14:17 Narrative Exam Physical Exam: General: Alert, acute distress, tearful. Skin: Warm, dry, intact, no obvious rash. Healed laceration-like wound on left medial arm. Head: Normocephalic, atraumatic. Eye: Right eye has white opacity in the lens. Left eye round and reactive to light. Throat: Oral mucosa moist. No obvious lesions in oropharynx. Cardiovascular: Tachycardic, regular rhythm, no murmur, +S1/S2. Respiratory: Lungs are clear to auscultation, respirations unlabored, no crackles, no wheezing. Gastrointestinal: Soft, nontender, non-distended. No guarding or rebound tenderness. Extremities: No edema, no cyanosis, no clubbing. 2+ radial pulse bilaterally, 2+ pedal pulse right leg. Amputated left leg. Neuro: No focal deficits observed. Conversant, moving all extremities. No overt cerebellar signs/incoordination. Psychiatric: Cooperative, sad affect. Results Labs 11/18/24 05:02 11/18/24 05:02 Labs: Short CBC 11/17/24 Range/Units 03:15 WBC 12.6 H (3.6-11.0) Thou/mm3 Hgb 8.8 L D (12.0-16.0) g/dL Hct 28.1 L (36.0-46.0) % Plt Count 455 H D (140-440) Thou/mm3 BMP 11/17/24 03:15 Sodium 135 L Potassium 5.7 H Chloride 95 L Carbon Dioxide 32.7 H BUN 26 H Creatinine 5.5 H* D Glucose 57 L Calcium 8.4 Cardiac Enzymes 11/17/24 Range/Units 03:15 Troponin I < 0.020 (0.0-0.045) ng/mL Urine 11/17/24 Range/Units 03:08 Urine Color Lt-Yellow (Lt Yel-Yel) Urine Clarity Clear (Clear/Hazy) Urine pH 8.5 H (5.0-7.0) Ur Specific [place] 1.019 (1.001-1.035) Urine Protein 3+ A (Neg - Trace) Urine Glucose (UA) 3+ A (Negative) Quality Measures Quality Measures none Medications Home Medications and Allergies Home Medications ?Medication ?Instructions ?Recorded ?Confirmed ?Type amlodipine 5 mg tablet 5 mg PO DAILY 05/18/24 11/17/24 History sevelamer carbonate 2.4 gram oral 2.4 g PO TID 11/17/24 11/17/24 History powder packet silver sulfadiazine 1 % topical 1 applic topical DAILY 11/17/24 11/17/24 History cream tramadol 50 mg tablet 50 mg PO Q6H PRN pain 11/17/24 11/17/24 History Allergies Allergy/AdvReac Type Severity Reaction Status Date / Time amoxicillin (From Augmentin) Allergy Severe Swelling Verified 11/17/24 01:47 of Lip/Tongue/Throat clavulanic acid (From Allergy Severe Swelling Verified 11/17/24 01:47 Augmentin) of Lip/Tongue/Throat Visit Medications Acetaminophen (Acetaminophen 325 Mg Tablet) 650 mg PO Q6H PRN PRN Reason: Fever >100 or pain 1-3 Stop: 12/17/24 10:44 Hydrocodone Bitart/Acetaminophen (Hydrocodone/Apap 5/325 Tablet) 1 tab PO Q4HR PRN PRN Reason: PAIN SCALE 4-6 (Moderate Stop: 11/22/24 10:45 Last Admin: 11/17/24 12:04 Dose: 1 tab Amlodipine Besylate (Amlodipine Besylate 5 Mg Tablet) 5 mg PO QDAY NASREEN Stop: 12/17/24 10:59 Last Admin: 11/17/24 12:05 Dose: 5 mg Dextrose (Dextrose 50%-Water Inj 50 Ml Syringe) 25 ml IV Q15MIN PRN PRN Reason: BG 50-70 responsive npo pt Stop: 12/17/24 10:45 Dextrose (Dextrose 50%-Water Inj 50 Ml Syringe) 50 ml IV Q15MIN PRN PRN Reason: BG <50 OR BG <70 & pt unresponsive Stop: 12/17/24 10:45 Glucagon (Glucagon Inj 1 Mg Vial) 1 mg IM Q15MIN PRN PRN Reason: BG <70, and no IV access Heparin Sodium (Porcine) (Heparin Sod Inj 5000 Unit/Ml Vial) 5,000 unit SC Q12HR NASREEN Stop: 12/01/24 10:59 Last Admin: 11/17/24 12:07 Dose: 5,000 unit Heparin Sodium (Porcine) (Heparin Sod Inj 1000 Unit/Ml Vial 10 Ml) 4,100 unit INDWELLCAT X1 PRN PRN Reason: DIALYSIS Stop: 12/01/24 10:43 Albumin Human (Albuminar-25 Ivpb) 25 gm in 100 mls @ 100 mls/min IV PRN PRN PRN Reason: DIALYSIS Stop: 11/20/24 10:43 Insulin Human Lispro (Insulin Lispro (Admelog) 1 Unit/0.01 Ml Unit) 0 unit SC AC NASREEN; Protocol Stop: 12/17/24 11:29 Last Admin: 11/17/24 12:58 Dose: Not Given Ondansetron HCl (Ondansetron Inj 2 Mg/Ml Inj 2 Ml) 4 mg IVP Q6H PRN; Protocol PRN Reason: NAUSEA OR VOMITING Stop: 12/17/24 10:45 Pantoprazole Sodium (Pantoprazole Inj 40 Mg Vial) 40 mg IVP QDAY NASREEN Stop: 12/17/24 10:59 Last Admin: 11/17/24 12:13 Dose: 40 mg Pharmacy Consult (Vancomycin Pharmacy To Dose 1 Each Each) 1 each IV QDAY PRN PRN Reason: CONSULT Stop: 12/17/24 08:59 Pharmacy Consult (Pharmacy Renal Dose Adjustment 1 Ea) 1 each XX PRN PRN PRN Reason: CONSULT Stop: 12/17/24 08:12 Discontinued Medications Albuterol (Albuterol Rt 2.5 Mg/3 Ml Nebu) 2.5 mg INH X1 ONE Stop: 11/17/24 06:22 Last Admin: 11/17/24 07:06 Dose: 2.5 mg Calcium Gluconate (Calcium Gluconate 10% Inj 1 Gm/10 Ml Vial) 1 gm IV X1 ONE Stop: 11/17/24 06:39 Last Admin: 11/17/24 06:54 Dose: 1 gm Dextrose (Dextrose 50%-Water Inj 50 Ml Syringe) 25 ml IVP X1 ONE Stop: 11/17/24 04:46 Last Admin: 11/17/24 05:02 Dose: 25 ml Dextrose (Dextrose 50%-Water Inj 50 Ml Syringe) 50 ml IVP X1 ONE Stop: 11/17/24 06:22 Last Admin: 11/17/24 06:49 Dose: 50 ml Hydromorphone HCl (Hydromorphone Inj 2 Mg/Ml Vial) 1 mg IVP X1 ONE Stop: 11/17/24 02:59 Last Admin: 11/17/24 03:19 Dose: 1 mg Hydromorphone HCl (Hydromorphone Inj 2 Mg/Ml Vial) 0.25 mg IVP X1 ONE Stop: 11/17/24 13:32 Last Admin: 11/17/24 14:13 Dose: 0.25 mg Ceftriaxone Sodium/Dextrose (Rocephin/D5w 1gm Iv Premix) 1 g in 50 mls @ 100 mls/hr IV X1 ONE Stop: 11/17/24 03:54 Last Infusion: 11/17/24 05:07 Dose: Infused Vancomycin/Sodium Chloride (Vancomycin/Ns 1 Gm Ivpb) 200 mls @ 120 mls/hr IV X1 ONE Stop: 11/17/24 10:09 Last Infusion: 11/17/24 14:44 Dose: Infused Insulin Human Regular (Insulin Hum Regular 1 Unit/0.01 Ml (Per Unit)) 10 unit IV X1 ONE Stop: 11/17/24 06:22 Last Admin: 11/17/24 06:53 Dose: 10 unit Ondansetron HCl (Ondansetron Inj 2 Mg/Ml Inj 2 Ml) 4 mg IVP X1 ONE; Protocol Stop: 11/17/24 02:59 Last Admin: 11/17/24 03:19 Dose: 4 mg Assessment & Plan Plan Mrs. Bajwa is a 44-year-old female with a past medical history of ESRD on HD MWF, status post fistula placement on 10/20/2024, T2DM, HTN, asthma, and status post left leg amputation, who presented to the ED from home with chief complaint of neck, back, and chest pain. Nephrology was consulted for ESRD management as Dr. Orantes is well-known to this patient. #ESRD on HD MWF Patient is known to Dr. Livingston and is scheduled for MWF HD outpatient. Patient missed HD today (11/17/24) as she went to the ER for her neck and back pain instead. - HD performed today. - Plan for HD Sunday 11/19. - Resume MWF HD schedule once discharged. - IV hydration as tolerated. - Avoid nephrotoxic drugs. - Nephrology will continue to follow. Patient was discussed with the Nephrology attending, Dr. Livingston. Thank you for allowing us to participate in the care of this patient. Pipo Fernandes, PGY-1 Attending Provider Attestation/Addendum Agree with assessment and plan and finding of resident. Seen and examined. Labs are reviewed Bala Livingston MD
--- NOTE | 2024-11-17 16:42 | PD.RESCONSUL ---
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 During the recent visit, her troponins were negative and BNP was 659, and her back pain was thought to be muscular in origin and was discharged home with pain medications. The patient reported that she has severe pain over her upper back and posterior soldier, that has been going on for past 6 days. She denied any headache, nausea or vomiting, SOB, chest pain, orthopnea or PND, palpitations, dizziness, or any leg swelling. During my evaluation, her vitals were blood pressure 143/96, pulse 100, RR 14, and saturating 97% on room air. Labs were white count 12.6, hemoglobin 8.8, platelet 455, D-dimer 1200, sodium 135, potassium 5.7, bicarb 32.7, BUN 26, creatinine 5.5, blood sugar 57, magnesium 1.7, troponin less than 0.02, and BNP 406. CTA chest was negative for pulmonary embolism, but revealed pericardial effusion measuring up to 26 mm with mild enlargement of cardiac contour. Chest x-ray on 11/10/2024 was significant for mild enlargement of cardiac counter and mild CHF. Of note, the patient's blood culture from 11/10/2024 is positive for GPC. PMH: As mentioned above SHX: Left BKA 2/2 diabetic vasculopathy, cholecystectomy, left fistula implant for HD Family history: Mother is , had kidney disease requiring HD, had seizure disorder. Father is living with chronic asthma. Sister has epilepsy Social history: Denies smoking, alcohol use, remote history of methamphetamine abuse, does not work Medications: Amlodipine 5 Mg daily, cyclobenzaprine 10 Mg daily at night as needed for muscle spasm, insulin glargine 25 units daily in the morning, sevelamer 2.4 g 3 times daily, silver sulfadiazine local application, tramadol 50 Mg every 6 hourly as needed Allergies: Amoxicillin and clavulanic acid: Swelling of lips, tongue and throat The patient was admitted for further management of upper back pain. Cardiology consultation was done for further management of pericardial effusion. cc:: cc: Ren Whitten MD Review of Systems Review of Systems Systems Reviewed: All systems reviewed, normal except as documented Exam Vital Signs Temp Pulse Resp BP Pulse Ox O2 Del Method 97.9 F 93 14 144/91 H 95 Room Air 11/17/24 16:30 11/17/24 16:30 11/17/24 16:30 11/17/24 16:30 11/17/24 16:30 11/17/24 16:30 Narrative Exam General: No acute distress, Alert and Oriented x 3, tearful HEENT: Moist mucous membranes, oropharynx clear Neck: Supple, No masses, No JVD CVS: S1S2 Regular rate and rhythm, No murmurs, rubs or gallops Lungs: Clear to auscultation with no accessory use, no wheeze no rhonchi Abd: Soft, NT/ND, +BS, no organomegaly Ext: No edema, warm and well perfused, left BKA, left arm with scar alley Skin: No rash Psych: In pain and tearful Results Labs 11/18/24 05:02 11/18/24 05:02 Labs: Short CBC 11/17/24 Range/Units 03:15 WBC 12.6 H (3.6-11.0) Thou/mm3 Hgb 8.8 L D (12.0-16.0) g/dL Hct 28.1 L (36.0-46.0) % Plt Count 455 H D (140-440) Thou/mm3 BMP 11/17/24 03:15 Sodium 135 L Potassium 5.7 H Chloride 95 L Carbon Dioxide 32.7 H BUN 26 H Creatinine 5.5 H* D Glucose 57 L Calcium 8.4 Cardiac Enzymes 11/17/24 Range/Units 03:15 Troponin I < 0.020 (0.0-0.045) ng/mL Urine 11/17/24 Range/Units 03:08 Urine Color Lt-Yellow (Lt Yel-Yel) Urine Clarity Clear (Clear/Hazy) Urine pH 8.5 H (5.0-7.0) Ur Specific [place] 1.019 (1.001-1.035) Urine Protein 3+ A (Neg - Trace) Urine Glucose (UA) 3+ A (Negative) Quality Measures Quality Measures none Medications Home Medications and Allergies Home Medications ?Medication ?Instructions ?Recorded ?Confirmed ?Type amlodipine 5 mg tablet 5 mg PO DAILY 05/18/24 11/17/24 History sevelamer carbonate 2.4 gram oral 2.4 g PO TID 11/17/24 11/17/24 History powder packet silver sulfadiazine 1 % topical 1 applic topical DAILY 11/17/24 11/17/24 History cream tramadol 50 mg tablet 50 mg PO Q6H PRN pain 11/17/24 11/17/24 History Allergies Allergy/AdvReac Type Severity Reaction Status Date / Time amoxicillin (From Augmentin) Allergy Severe Swelling Verified 11/17/24 01:47 of Lip/Tongue/Throat clavulanic acid (From Allergy Severe Swelling Verified 11/17/24 01:47 Augmentin) of Lip/Tongue/Throat Visit Medications Acetaminophen (Acetaminophen 325 Mg Tablet) 650 mg PO Q6H PRN PRN Reason: Fever >100 or pain 1-3 Stop: 12/17/24 10:44 Hydrocodone Bitart/Acetaminophen (Hydrocodone/Apap 5/325 Tablet) 1 tab PO Q4HR PRN PRN Reason: PAIN SCALE 4-6 (Moderate Stop: 11/22/24 10:45 Last Admin: 11/17/24 12:04 Dose: 1 tab Amlodipine Besylate (Amlodipine Besylate 5 Mg Tablet) 5 mg PO QDAY NASREEN Stop: 12/17/24 10:59 Last Admin: 11/17/24 12:05 Dose: 5 mg Dextrose (Dextrose 50%-Water Inj 50 Ml Syringe) 25 ml IV Q15MIN PRN PRN Reason: BG 50-70 responsive npo pt Stop: 12/17/24 10:45 Dextrose (Dextrose 50%-Water Inj 50 Ml Syringe) 50 ml IV Q15MIN PRN PRN Reason: BG <50 OR BG <70 & pt unresponsive Stop: 12/17/24 10:45 Glucagon (Glucagon Inj 1 Mg Vial) 1 mg IM Q15MIN PRN PRN Reason: BG <70, and no IV access Heparin Sodium (Porcine) (Heparin Sod Inj 5000 Unit/Ml Vial) 5,000 unit SC Q12HR NASREEN Stop: 12/01/24 10:59 Last Admin: 11/17/24 12:07 Dose: 5,000 unit Heparin Sodium (Porcine) (Heparin Sod Inj 1000 Unit/Ml Vial 10 Ml) 4,100 unit INDWELLCAT X1 PRN PRN Reason: DIALYSIS Stop: 12/01/24 10:43 Albumin Human (Albuminar-25 Ivpb) 25 gm in 100 mls @ 100 mls/min IV PRN PRN PRN Reason: DIALYSIS Stop: 11/20/24 10:43 Insulin Human Lispro (Insulin Lispro (Admelog) 1 Unit/0.01 Ml Unit) 0 unit SC AC NASREEN; Protocol Stop: 12/17/24 11:29 Last Admin: 11/17/24 12:58 Dose: Not Given Ondansetron HCl (Ondansetron Inj 2 Mg/Ml Inj 2 Ml) 4 mg IVP Q6H PRN; Protocol PRN Reason: NAUSEA OR VOMITING Stop: 12/17/24 10:45 Pantoprazole Sodium (Pantoprazole Inj 40 Mg Vial) 40 mg IVP QDAY NASREEN Stop: 12/17/24 10:59 Last Admin: 11/17/24 12:13 Dose: 40 mg Pharmacy Consult (Vancomycin Pharmacy To Dose 1 Each Each) 1 each IV QDAY PRN PRN Reason: CONSULT Stop: 12/17/24 08:59 Pharmacy Consult (Pharmacy Renal Dose Adjustment 1 Ea) 1 each XX PRN PRN PRN Reason: CONSULT Stop: 12/17/24 08:12 Discontinued Medications Albuterol (Albuterol Rt 2.5 Mg/3 Ml Nebu) 2.5 mg INH X1 ONE Stop: 11/17/24 06:22 Last Admin: 11/17/24 07:06 Dose: 2.5 mg Calcium Gluconate (Calcium Gluconate 10% Inj 1 Gm/10 Ml Vial) 1 gm IV X1 ONE Stop: 11/17/24 06:39 Last Admin: 11/17/24 06:54 Dose: 1 gm Dextrose (Dextrose 50%-Water Inj 50 Ml Syringe) 25 ml IVP X1 ONE Stop: 11/17/24 04:46 Last Admin: 11/17/24 05:02 Dose: 25 ml Dextrose (Dextrose 50%-Water Inj 50 Ml Syringe) 50 ml IVP X1 ONE Stop: 11/17/24 06:22 Last Admin: 11/17/24 06:49 Dose: 50 ml Hydromorphone HCl (Hydromorphone Inj 2 Mg/Ml Vial) 1 mg IVP X1 ONE Stop: 11/17/24 02:59 Last Admin: 11/17/24 03:19 Dose: 1 mg Hydromorphone HCl (Hydromorphone Inj 2 Mg/Ml Vial) 0.25 mg IVP X1 ONE Stop: 11/17/24 13:32 Last Admin: 11/17/24 14:13 Dose: 0.25 mg Ceftriaxone Sodium/Dextrose (Rocephin/D5w 1gm Iv Premix) 1 g in 50 mls @ 100 mls/hr IV X1 ONE Stop: 11/17/24 03:54 Last Infusion: 11/17/24 05:07 Dose: Infused Vancomycin/Sodium Chloride (Vancomycin/Ns 1 Gm Ivpb) 200 mls @ 120 mls/hr IV X1 ONE Stop: 11/17/24 10:09 Last Infusion: 11/17/24 14:44 Dose: Infused Insulin Human Regular (Insulin Hum Regular 1 Unit/0.01 Ml (Per Unit)) 10 unit IV X1 ONE Stop: 11/17/24 06:22 Last Admin: 11/17/24 06:53 Dose: 10 unit Ondansetron HCl (Ondansetron Inj 2 Mg/Ml Inj 2 Ml) 4 mg IVP X1 ONE; Protocol Stop: 11/17/24 02:59 Last Admin: 11/17/24 03:19 Dose: 4 mg Assessment & Plan Plan The patient is a 44-year-old female with past medical history significant for ESRD on HD MWF, uncontrolled type 2 diabetes mellitus, hypertension, s/p recent fistula placement on 10/20/2024 , 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 The patient was admitted for further management of upper back pain. Cardiology consultation was done for further management of pericardial effusion. #Pericardial effusion #Rule out cardiac tamponade #ACS ruled out #Fluid overload secondary to noncompliant with dialysis sessions and possible diastolic dysfunction #ESRD on HD MWF #Rule out arrhythmia Likely secondary to volume overload in the setting of ESRD on HD. BNP on previous presentation was 659, on this presentation 406, troponins negative, EKG revealing no significant ST segment or T wave changes. Patient denies any chest pain, palpitations, orthopnea or PND, or any dizziness. CTA chest revealed pericardial effusion measuring up to 26 mm with mild enlargement of cardiac countour, x-ray on 11/10/2024 was also significant for mild enlargement of cardiac contour -Telemetry monitoring -TTE ordered - Recommended extra ultrafiltration during hemodialysis, as previous patient BNP was 659, and in this presentation it was 406, likely suggestive of volume overload in the setting of ESRD on HD. - Maintain potassium and magnesium greater than 4 and 2 respectively at all the time - Recommended outpatient follow-up with pretzel cooker to be arranged by PCP #GPC bacteremia - Recommended ceftriaxone 2 g daily - Vancomycin renally dosed #Intractable upper back pain #Intractable bilateral posterior shoulder pain #History of seizure disorder with upper back muscle spasm - Pain management - MRI cervical spine ordered #Hypertension Blood pressure was in 140s/90s Pain management - May increase amlodipine from 5 mg daily to 10 mg daily if blood pressure is not well-controlled after pain management #Diabetes mellitus type 2 - Maintain euglycemia Management of other problems deferred to primary hospitalist team. Thank you for cardiology consultation. We appreciate the opportunity to participate in this patient's care. Will continue to follow-up on this patient. The patient's management plan was discussed with my attending physician MD Moises Blackwell MD, PGY3 Attending Provider Attestation/Addendum I have personally seen and examined the patient separately on the above date of service and discussed the plan of care with the resident. I reviewed the resident Dr. Moises Jiménez excellent consultation progress note and agree with the resident findings and plan in the note above and have also edited the documentation to reflect my findings and plan. As noted in the HPI above patient with multiple comorbid's including end-stage renal disease on hemodialysis appears to be noncompliant with her dialysis sessions. Patient is significantly fluid overloaded on examination. Reviewed the CT and it only shows at the most moderate effusion but was measured at [address] chest always overestimates amount of pericardial effusion and the will order an echocardiogram to reevaluated and mostly the patient only has a small effusion. Will need to rule out cardiac tamponade but patient is hemodynamically stable and no evidence of any PACs tried that was noted. Patient is sitting and doing well. Patient does inform me that she did miss stations in between and she makes up position slightly of the point of time which could also lead to slowly fluid overload over. Of time. For now patient recommended to get daily dialysis sessions and removal additional fluid during the each dialysis session if the blood pressure continues to be stable along with the rest of the vitals. There was some question of chest pain but during my examination patient did not have any chest pain and was doing well her shortness of breath is improved and is on oxygen. EKG did not show any acute ST-T changes suggestive of ischemia. Troponins 2 sets were negative. Will continue to follow the echocardiogram and there is no regional wall motion abnormalities no need of any ischemic evaluation. Patient recommended to follow-up with primary care doctor and obtain a cardiology evaluation anxiety patient for further ischemic evaluation given her multiple comorbidities. Management of rest of the medical conditions as per primary team and other consultants. Thank you for the consult and allowing me to participate in the care of the patient. Cardiology will continue to follow. Cody Andrade M.D. Interventional Cardiology
[2024-11-17] MEDS: INSULIN LISPRO (AdmeLOG) 1 UNIT/0.01 ML UNIT SC (18:39)
[2024-11-17] MEDS: HYDROmorphone INJ 2 MG/ML VIAL 0.5 MG IVP (21:39)
[2024-11-18] VITALS (22 sets, daily range): BP systolic 127–182; BP diastolic 80–102; PULSE 90–109; RESP 13–20; TEMP 36.2–36.7; O2SAT 92–100; BMI 30.2
--- NOTE | 2024-11-18 | XR_ITS ---
Examination: MRI cervical spine without intravenous contrast Date and time of exam: November 18, 2024 1029 hours INDICATIONS: Neck pain, months, CT cervical spine November 10, 2024 sclerotic lesion lateral right body of C2 Technique: Multiple axial and sagittal sections of the cervical spine to been obtained. T2 weighted sagittal sections, TR 3, 270, TE 117 T1-weighted sagittal sections, TR 500, TE 11 T1-weighted axial sections, TR 607, TE 12, axial sections TR 18, TE 27 and T2 weighted transverse sections, TR 3920, TE 122. Findings: Extensive patient motion severely degrades scan image quality Abnormal signal replacing the C5 and C6 vertebral bodies IMPRESSION: Severely limited study Abnormal signal replacing the C5 and C6 vertebral body suspicious for osseous metastatic disease Recommend prestudy IV conscious sedation and repeat examination including post intravenous contrast
[2024-11-18] MEDS: HYDROmorphone INJ 2 MG/ML VIAL 0.5 MG IVP ×2 (03:24→08:59)
[2024-11-18 06:37] LABS: Basophils # (Auto) 0.1 Thou/mm3 (0.0-0.2); Basophils % (Auto) 1 % (0-2.5); Eosinophils # (Auto) 0.4 Thou/mm3 (0.0-0.5); Eosinophils % (Auto) 3 % (0-10); Hematocrit 30.9 % (36.0-46.0); Hemoglobin 9.1 g/dL (12.0-16.0); Immature Granulocytes Auto 0.06 Thou/mm3 (0.00-0.00); Lymphocytes # (Auto) 2.4 Thou/mm3 (1.0-4.8); Lymphocytes % (Auto) 21 % (10-50); Mean Corpuscular HGB Conc 29.4 g/dl (31.0-37.0); Mean Corpuscular Hemoglobin 26.4 pg (25.0-35.0); Mean Corpuscular Volume 90 fL (80-100); Monocytes # (Auto) 0.9 Thou/mm3 (0.0-0.8); Monocytes % (Auto) 7 % (0-12); Neutrophils # (Auto) 8.1 Thou/mm3 (1.8-7.7); Neutrophils % (Auto) 68 % (37-80); Nucleated Red Blood Cell # 0.00 Thou/mm3 (0.00-0.00); Nucleated Red Blood Cell % 0 /100 WBC (0); Platelet Count 410 Thou/mm3 (140-440); RDW Standard Deviation 58.3 fL (36.4-46.3); Red Blood Count 3.45 Miln/mm3 (4.00-5.20); White Blood Count 11.9 Thou/mm3 (3.6-11.0)
[2024-11-18 06:56] LABS: Glucose Estimated Average 131 mg/dL (80-131); Hemoglobin A1C 6.2 % Hgb (4.8-6.0)
[2024-11-18 07:05] LABS: INR 1.1 (0.9-1.3); Partial Thromboplastin Time 33.9 Seconds (22.0-36.0); Prothrombin Time 11.5 Seconds (9.0-12.2)
[2024-11-18 07:23] LABS: Alanine Aminotransferase < 7 U/L (10-49); Albumin, Serum 3.6 gm/dL (3.5-5.0); Albumin/Globulin Ratio 1.1 (1.2-2.2); Alkaline Phosphatase 93 U/L (46-116); Anion Gap 11 (7-16); Aspartate Amino Transferase 10 U/L (0-34); BUN/Creatinine Ratio 4 Ratio (12-20); Bilirubin,Total 0.3 mg/dL (0.3-1.2); Blood Urea Nitrogen 18 mg/dL (9-23); Calcium 8.6 mg/dL (8.3-10.6); Calcium (Corrected) 8.9 mg/dL (8.5-10.1); Carbon Dioxide 27.4 mMol/L (20.0-31.0); Cardiac Risk Estimate 2.9 RATIO (3.7-5.6); Chloride 97 mMol/L (98-107); Cholesterol 123 mg/dL (132-200); Creatinine (Component) 4.9 mg/dL (0.6-1.3); Estimated Creatinine Clearance 13.2 mL/min (>60); Globulin 3.3 gm/dL (2.3-3.5); Glucose 119 mg/dL (74-106); HDL Cholesterol 43 mg/dL (40-60); LDL Cholesterol,Calculated 66 mg/dL (0-130); Magnesium 1.7 mg/dL (1.6-2.6); Osmolality,Calculated 273 (275-295); Phosphorous 5.2 mg/dL (2.4-5.1); Sodium 135 mMol/L (136-145); Thyroid Stimulating Hormone 2.36 uIU/mL (0.55-4.78); Total Protein 6.9 gm/dL (5.7-8.2); Triglycerides 69 mg/dL (30-150); Vancomycin,Random 20.4 mcg/mL; eGFR 11 See Note
[2024-11-18 07:27] LABS: Potassium 6.1 mMol/L (3.4-5.1)
[2024-11-18] MEDS: ALBUTEROL RT 2.5 MG/0.5 ML NEBU INH (09:01)
[2024-11-18] MEDS: DEXTROSE 50%-WATER INJ 50 ML SYRINGE IVP (09:04)
[2024-11-18] MEDS: INSULIN HUM REGULAR 1 UNIT/0.01 ML (PER UNIT) 5 UNIT IV (09:05)
[2024-11-18] MEDS: HEPARIN SOD INJ 5000 UNIT/ML VIAL SC (09:06)
[2024-11-18] MEDS: CALCIUM GLUCONATE 10% INJ 1 GM/10 ML VIAL IV (09:15)
--- NOTE | 2024-11-18 09:32 | PD.RESPRO ---
Documentation for date of: 11/18/24 Subjective Subjective Interval history: Overnight events: No acute events overnight. Patient requested use of hydromorphone 0.5 mg IV twice last night as the hydrocodone/acetaminophen 1 tablet was not adequately controlling her neck and back pain. Patient was seen and examined at bedside. AM vitals and labs reviewed. WBC 11.9, potassium 6.1, BUN 18, creatinine 4.9, GFR 11, phosphate 5.2, magnesium 1.7. Medicine team gave calcium gluconate, insulin, and D50 for hyperkalemia, they plan to recheck potassium later today. Cardiology ordered TTE and recommended extra UF during HD due to elevated BNP of 406. MRI C-spine ordered. Patient stated she has no improvement with her neck and back pain. The [place] does not provide her with enough relief, but the Dilaudid takes the edge off for her and provides her with some relief. The patient became tearful stating that she does not want to use pain medication, but feels that she has no choice with how painful her back and neck feel. The patient also stated that she feels no change in her chest pain. Otherwise no complaints, HD planned for today due to hyperkalemia after yesterdays HD session. Review of systems otherwise negative except for what is mentioned above. Exam Vital Signs Temp Pulse Resp BP Pulse Ox O2 Del Method 97.1 F 95 18 138/97 H 100 Room Air 11/18/24 07:47 11/18/24 09:07 11/18/24 09:01 11/18/24 09:07 11/18/24 09:01 11/18/24 07:47 Narrative Exam Physical Exam: General: Alert, no acute distress, tearful. Absent left leg. Skin: Warm, dry, intact, no obvious rash. Healed laceration-like wound on left medial arm. Head: Normocephalic, atraumatic. Eye: Normal conjunctiva, PERRL. Throat: Oral mucosa moist. No obvious lesions in oropharynx. Cardiovascular: Regular rate and rhythm, no murmur, +S1/S2. Respiratory: Lungs are clear to auscultation, respirations unlabored, no crackles, no wheezing. Gastrointestinal: Soft, nontender, non-distended. No guarding or rebound tenderness. Extremities: 1+ edema in RLE, no cyanosis, no clubbing. 2+ radial pulse bilaterally, 2+ pedal pulse on right side. Neuro: No focal deficits observed. Conversant, moving all extremities. No overt cerebellar signs/incoordination. Psychiatric: Cooperative, appropriate affect. Objective Labs 11/21/24 09:35 11/21/24 15:03 Labs: Laboratory Results - last 24 hr 11/18/24 11/18/24 05:02 05:45 WBC 11.9 H RBC 3.45 L Hgb 9.1 L Hct 30.9 L MCV 90 MCH 26.4 MCHC 29.4 L RDW Std Deviation 58.3 H Plt Count 410 D Neut % (Auto) 68 Lymph % (Auto) 21 [place] % (Auto) 7 Eos % (Auto) 3 Baso % (Auto) 1 Neut # (Auto) 8.1 H Lymph # (Auto) 2.4 [place] # (Auto) 0.9 H Eos # (Auto) 0.4 Baso # (Auto) 0.1 Immature Gran # (Auto) 0.06 H Absolute Nucleated RBC 0.00 Immature Gran % 1 H Nucleated RBC % 0 PT 11.5 INR 1.1 APTT 33.9 Sodium 135 L Potassium 6.1 H* Chloride 97 L Carbon Dioxide 27.4 Anion Gap 11 BUN 18 Creatinine 4.9 H* D Estim Creat Clear Calc 13.2 L eGFR 11 L* BUN/Creatinine Ratio 4 L Glucose [address] Glu mg/dL 131 Hemoglobin A1c 6.2 H Calculated Osmolality 273 L Calcium 8.6 Corrected Calcium 8.9 Phosphorus 5.2 H Magnesium 1.7 Total Bilirubin 0.3 AST 10 ALT < 7 L Alkaline Phosphatase 93 Total Protein 6.9 Albumin 3.6 Globulin 3.3 Albumin/Globulin Ratio 1.1 L Triglycerides 69 Cholesterol 123 L LDL Cholesterol, Calc 66 HDL Cholesterol 43 Cholesterol/HDL Ratio 2.9 L TSH 2.36 Random Vancomycin 20.4 Cancelled Quality Measures Quality Measures none Assessment & Plan Assessment Current Active Medications: Generic Name Dose Route Start Last Admin Trade Name Freq PRN Reason Stop Dose Admin Acetaminophen 650 mg 11/17/24 10:45 Acetaminophen 325 Mg Tablet PO 12/17/24 10:44 Q6H PRN Fever >100 or pain 1-3 Hydrocodone Bitart/Acetaminophen 1 tab 11/17/24 10:46 11/17/24 18:35 Hydrocodone/Apap 5/325 Tablet PO 11/22/24 10:45 1 tab Q4HR PRN Administration PAIN SCALE 4-6 (Moderate Amlodipine Besylate 5 mg 11/17/24 11:00 11/18/24 09:07 Amlodipine Besylate 5 Mg Tablet PO 12/17/24 10:59 5 mg QDAY NASREEN Administration Dextrose 25 ml 11/17/24 10:46 Dextrose 50%-Water Inj 50 Ml Syringe IV 12/17/24 10:45 Q15MIN PRN BG 50-70 responsive npo pt Dextrose 50 ml 11/17/24 10:46 Dextrose 50%-Water Inj 50 Ml Syringe IV 12/17/24 10:45 Q15MIN PRN BG <50 OR BG <70 & pt unresponsive Glucagon 1 mg 11/17/24 10:46 Glucagon Inj 1 Mg Vial IM Q15MIN PRN BG <70, and no IV access Heparin Sodium (Porcine) 5,000 unit 11/17/24 11:00 11/18/24 09:06 Heparin Sod Inj 5000 Unit/Ml Vial SC 12/01/24 10:59 5,000 unit Q12HR NASREEN Administration Heparin Sodium (Porcine) 4,100 unit 11/17/24 10:44 Heparin Sod Inj 1000 Unit/Ml Vial 10 Ml INDWELLCAT 12/01/24 10:43 X1 PRN DIALYSIS Hydromorphone HCl 0.5 mg 11/17/24 20:38 11/18/24 08:59 Hydromorphone Inj 2 Mg/Ml Vial IVP 11/22/24 20:37 0.5 mg Q4HR PRN Administration PAIN SCALE 4-10(Mod-Sev Albumin Human 25 gm in 100 mls @ 100 mls/min 11/17/24 10:44 Albuminar-25 Ivpb IV 11/20/24 10:43 PRN PRN DIALYSIS Insulin Human Lispro 0 unit 11/17/24 11:30 11/18/24 09:20 Insulin Lispro (Admelog) 1 Unit/0.01 Ml Unit SC 12/17/24 11:29 Not Given [facility] Protocol Ondansetron HCl 4 mg 11/17/24 10:46 Ondansetron Inj 2 Mg/Ml Inj 2 Ml IVP 12/17/24 10:45 Q6H PRN NAUSEA OR VOMITING Protocol Pantoprazole Sodium 40 mg 11/17/24 11:00 11/18/24 09:05 Pantoprazole Inj 40 Mg Vial IVP 12/17/24 10:59 40 mg QDAY NASREEN Administration Pharmacy Consult 1 each 11/17/24 09:00 Vancomycin Pharmacy To Dose 1 Each Each IV 12/17/24 08:59 QDAY PRN CONSULT Pharmacy Consult 1 each 11/17/24 08:13 Pharmacy Renal Dose Adjustment 1 Ea XX 12/17/24 08:12 PRN PRN CONSULT Plan Mrs. Bajwa is a 44-year-old female with a past medical history of ESRD on HD MWF, status post fistula placement on 10/20/2024, T2DM, HTN, asthma, and status post left leg amputation, who presented to the ED from home with chief complaint of neck, back, and chest pain. Nephrology was consulted for ESRD management as Dr. Orantes is well-known to this patient. #ESRD on HD MWF Patient is known to Dr. Livingston and is scheduled for MWF HD outpatient. Patient missed HD today (11/17/24) as she went to the ER for her neck and back pain instead. - HD performed 11/17. - Plan for HD today 11/18. Will reassess need for HD tomorrow. - IV hydration as tolerated. - Avoid nephrotoxic drugs. - Nephrology will continue to follow. Patient was discussed with the Nephrology attending, Dr. Livingston. Thank you for allowing us to participate in the care of this patient. Pipo Fernandes, PGY-1 Attending Provider Attestation/Addendum with assessment and plan and finding of resident. Seen and examined. Labs are reviewed Bala Livingston MD
--- NOTE | 2024-11-18 13:59 | ESPR_ITS ---
<Statement entered by Kitty Thomas MD - 11/19/24 17:04> In summary: 44-year-old with PMHx of ESRD HD MWF, recent fistula placement of LUE, T2DM, HTN, seizure disorder, presented with upper back pain with suspected pericarditis. Initial CT showed 26 mm pericardial effusion. However, ultrasound showed minimal posterior pericardial effusion 0.8 cm. We started VANCOMYCIN for GPC bacteremia, however repeat blood culture was negative after 48 hours. She had a symptomatic UTI with urine culture growing Enterococcus faecalis. She has mild leukocytosis but afebrile. We switch ANTIBIOTICS to CIPROFLOXACIN. Additionally, cervical spine MRI shows suspected osseous metastatic lesion of C5-C6 vertebral body, however study was limited. We ordered follow-up MRI with contrast with DILAUDID x 1 for sedation. Continued on hemodialysis inpatient, cardiology recommended ultrafiltration for pericardial effusion. Case was discussed with attending physician. Kitty Thomas DO PGY II This document was transcribed using voice recognition technology. Minor inaccuracies may be present. Documentation for date of: 11/18/24 Subjective Subjective Interval history: Patient was seen and examined at bedside. No acute events took place overnight. Pt sits comfortably in her bed. Pain was controlled with hydromorphone 0.5mg x2 during the night. Pt had MRI earlier in the morning and is awaiting the read out. Exam Vital Signs Temp Pulse Resp BP Pulse Ox O2 Del Method 97.7 F 108 H 18 162/93 H 96 Room Air 11/18/24 12:18 11/18/24 13:46 11/18/24 12:18 11/18/24 13:46 11/18/24 12:18 11/18/24 07:47 Objective Objective Narrative Objective Narrative: General: Alert and oriented x3, No apparent distress. Skin: Intact, Warm, no rashes. HEENT: Normocephalic, Atraumatic. Normal neck range of motion, Supple. Trachea midline. Respiratory: Lungs are clear to auscultation, Breath sounds are equal bilaterally with equal chest expansion. Cardiovascular: RRR, normal S1, S2, No murmurs. Distal pulses 2+ Abdomen: Abdomen soft, non-distended, without erythema, or lesions. Normotensive bowel sounds x4. Percussion tympanic. Palpation nontender in all four quadrants. No organomagely. No guarding or rebound present. Extremities: Lt below knee amputation. Site of incision for dialysis fistula on the left arm medial side. Erythema and skin hyperkeratosis around the neck, spreading down the back. muscle hypertonicity Lt posterior shoulder. Musculoskeletal: No swelling, moving all 4 extremities with FROM Neurologic: Alert, Oriented, No focal deficits. Moving all 4 extremities spontaneously Psych: Thoughts linear and responses appropriate. Labs 11/19/24 05:10 11/19/24 05:10 Labs: Laboratory Results - last 24 hr 11/18/24 11/18/24 05:02 05:45 WBC 11.9 H RBC 3.45 L Hgb 9.1 L Hct 30.9 L MCV 90 MCH 26.4 MCHC 29.4 L RDW Std Deviation 58.3 H Plt Count 410 D Neut % (Auto) 68 Lymph % (Auto) 21 [place] % (Auto) 7 Eos % (Auto) 3 Baso % (Auto) 1 Neut # (Auto) 8.1 H Lymph # (Auto) 2.4 [place] # (Auto) 0.9 H Eos # (Auto) 0.4 Baso # (Auto) 0.1 Immature Gran # (Auto) 0.06 H Absolute Nucleated RBC 0.00 Immature Gran % 1 H Nucleated RBC % 0 PT 11.5 INR 1.1 APTT 33.9 Sodium 135 L Potassium 6.1 H* Chloride 97 L Carbon Dioxide 27.4 Anion Gap 11 BUN 18 Creatinine 4.9 H* D Estim Creat Clear Calc 13.2 L eGFR 11 L* BUN/Creatinine Ratio 4 L Glucose [address] Glu mg/dL 131 Hemoglobin A1c 6.2 H Calculated Osmolality 273 L Calcium 8.6 Corrected Calcium 8.9 Phosphorus 5.2 H Magnesium 1.7 Total Bilirubin 0.3 AST 10 ALT < 7 L Alkaline Phosphatase 93 Total Protein 6.9 Albumin 3.6 Globulin 3.3 Albumin/Globulin Ratio 1.1 L Triglycerides 69 Cholesterol 123 L LDL Cholesterol, Calc 66 HDL Cholesterol 43 Cholesterol/HDL Ratio 2.9 L TSH 2.36 Random Vancomycin 20.4 Cancelled Quality Measures Quality Measures none Assessment & Plan Assessment Current Active Medications: Generic Name Dose Route Start Last Admin Trade Name Freq PRN Reason Stop Dose Admin Acetaminophen 650 mg 11/17/24 10:45 Acetaminophen 325 Mg Tablet PO 12/17/24 10:44 Q6H PRN Fever >100 or pain 1-3 Hydrocodone Bitart/Acetaminophen 1 tab 11/17/24 10:46 11/17/24 18:35 Hydrocodone/Apap 5/325 Tablet PO 11/22/24 10:45 1 tab Q4HR PRN Administration PAIN SCALE 4-6 (Moderate Amlodipine Besylate 5 mg 11/17/24 11:00 11/18/24 09:07 Amlodipine Besylate 5 Mg Tablet PO 12/17/24 10:59 5 mg QDAY NASREEN Administration Dextrose 25 ml 11/17/24 10:46 Dextrose 50%-Water Inj 50 Ml Syringe IV 12/17/24 10:45 Q15MIN PRN BG 50-70 responsive npo pt Dextrose 50 ml 11/17/24 10:46 Dextrose 50%-Water Inj 50 Ml Syringe IV 12/17/24 10:45 Q15MIN PRN BG <50 OR BG <70 & pt unresponsive Glucagon 1 mg 11/17/24 10:46 Glucagon Inj 1 Mg Vial IM Q15MIN PRN BG <70, and no IV access Heparin Sodium (Porcine) 5,000 unit 11/17/24 11:00 11/18/24 09:06 Heparin Sod Inj 5000 Unit/Ml Vial SC 12/01/24 10:59 5,000 unit Q12HR NASREEN Administration Heparin Sodium (Porcine) 4,100 unit 11/17/24 10:44 Heparin Sod Inj 1000 Unit/Ml Vial 10 Ml INDWELLCAT 12/01/24 10:43 X1 PRN DIALYSIS Hydromorphone HCl 0.25 mg 11/18/24 11:20 Hydromorphone Inj 2 Mg/Ml Vial IVP 11/23/24 10:31 Q6H PRN breakthrough pain Albumin Human 25 gm in 100 mls @ 100 mls/min 11/17/24 10:44 Albuminar-25 Ivpb IV 11/20/24 10:43 PRN PRN DIALYSIS Insulin Human Lispro 0 unit 11/17/24 11:30 11/18/24 09:20 Insulin Lispro (Admelog) 1 Unit/0.01 Ml Unit SC 12/17/24 11:29 Not Given AC [facility] Protocol Lidocaine 1 patch 11/18/24 11:30 Lidocaine 5% 1 Patch TOP 12/18/24 11:29 DAILY NASREEN Ondansetron HCl 4 mg 11/17/24 10:46 Ondansetron Inj 2 Mg/Ml Inj 2 Ml IVP 12/17/24 10:45 Q6H PRN NAUSEA OR VOMITING Protocol Pantoprazole Sodium 40 mg 11/17/24 11:00 11/18/24 09:05 Pantoprazole Inj 40 Mg Vial IVP 12/17/24 10:59 40 mg QDAY NASREEN Administration Pharmacy Consult 1 each 11/17/24 09:00 Vancomycin Pharmacy To Dose 1 Each Each IV 12/17/24 08:59 QDAY PRN CONSULT Pharmacy Consult 1 each 11/17/24 08:13 Pharmacy Renal Dose Adjustment 1 Ea XX 12/17/24 08:12 PRN PRN CONSULT Silver Sulfadiazine 0 gm 11/18/24 21:00 Silver Sulfadiazine Cr 1% 25 Gm Tube TOP 11/25/24 20:59 BID NASREEN Plan Plan In summary, Jo Bajwa is 44F with PMHx of renal disease on HD (M/W/F) s/p recent fistula placed on 10/20/2024, DM, HTN, and seizure disorder who presented to the ED on 11/17/2024 c/o of upper back pain across shoulders for 6 days. Pt was found to have 26ml of pericardial effusion, and is being admitted for the work up of pericarditis. #Perciardial Effusion #ESRD on HD #volume overload Ddx malignant pericardial effusion, pericarditis, CHF exacerbation -EKG was negative for diffuse ST segment abnormalities. BNP 406, 2+ pitting edema of Rt LE on PE -suggesting volume overload, likely 2/2 volume retention in the context of ESRD and inadequate dialysis. Trop negative, normal EKG. CTA of chest: Mild enlargement cardiac contour Pericardial effusion measuring up to 26 mm No pneumonia or pulmonary edema Negative for pulmonary artery emboli Echo showed small posterior pericardial effusion less than 0.8 cm. Plan: - CBC, CMP, Mg, Ca morning draw - Pt at telemetry monitoring - Pt receives HD MWF outpatient with elevator repairer helper Dr Livingston - per cardiology recs, pt can be on extra ultrafiltration setting during hemodialysis for the removal of excess volume. - Maintain K >4 and Mg >2 - F/U outpatient with metal container maker #hyperkalemia (resolved) K 6.1 (11/18) -ordered calcium gluconate, insulin 5u, and D50. -Repeat HD on 11/18 recommended by Nephrology # GPC bacteremia (resolved) #Asymptomatic bacteriuria Initial blood culture grew GPC, has been on VANCOMYCIN, repeat blood culture negative after 48 hours. Remains afebrile, leukocytosis stable and likely reactive at this point. MRSA screen negative. UA showed trace bacteria, urine culture grew relatively pansensitive low count enteric faecalis, however as she is asymptomatic. ? Discontinued VANCOMYCIN (11/17 to 11/19) ? Continue CIPROFLOXACIN (11/19 to present) #Intractable upper back pain #Intractable bilateral posterior shoulder pain - multimdodal pain control - Temple 5/325 PRN - Hydromorphone inj 0.25mg PRN - MRI cervical spine 11/18: -- limited study due to excessive patient motion degrading scan quality -- Abnormal signal replacing the C5 and C6 vertebral body suspicious for osseous metastatic disease -- Recommend prestudy IV conscious sedation and repeat examination including post intravenous contrast #hx of seizures #upper back muscle spasm Pt with a hx of life stressors. Seizures could also be 2/2 electrolyte deragements, eg, hyponatremia, in the setting of ESRD. #T2DM Pt on sliding scale insulin #HTN amlodipine PO 5mg Qday per cardiology, the dose may be increased to 10mg Qday if BP is not controlled adequately. #asthma albuterol 25mg PRN Health maintanance: Diet: Routine PPx GI: PPx DVT: code status:Routine Case was discussed with attending physician, Dr. Whitten, and senior resident Dr Thomas. Nael Marcus, DO PGY I Attending Provider Attestation/Addendum Patient admitted for back and leg pain. MRI done. Follow results. May need to refer to neurosurgery for further eval. I discussed with and supervised the resident physician who took care of this patient.
[2024-11-18] MEDS: HYDROcodone/APAP 5/325 TABLET 1 TAB PO ×2 (14:44→23:18)
[2024-11-18] MEDS: HEPARIN SOD INJ 1000 UNIT/ML VIAL 10 ML 4100 UNIT INDWELLCAT (15:42)
[2024-11-18] MEDS: LIDOCAINE 5% 1 PATCH TOP ×2 (15:56→19:42)
[2024-11-18] MEDS: HYDROmorphone INJ 2 MG/ML VIAL 0.25 MG IVP (15:57)
--- NOTE | 2024-11-18 16:03 | PC.PT ---
Attempt to initiate PT evaluation at 1600. Patient is crying secondary to pain. RN is giving her pain meds. Patient is hard to redirect at this time. Unable to initiate PT evaluation. Will try again tomorrow.
[2024-11-18] MEDS: SILVER SULFADIAZINE CR 1% 25 GM TUBE TOP (20:52)
--- NOTE | 2024-11-18 22:44 | ESPR_ITS ---
Documentation for date of: 11/18/24 Subjective Subjective Interval history: The patient was seen and examined at the bedside this morning. She reported significant improvement over her upper back and posterior soldier pain. She has been mildly hypertensive, likely secondary to pain. CBC at baseline, potassium this morning was 6.1, BUN 18 and creatinine 4.9, A1c 6.2, TG 69, cholesterol 123, LDL 66, HDL 43, TSH 2.36. Patient continues to deny chest pain or SOB The patient underwent hemodialysis session this afternoon again. Prelim TTE revealed mild pericardial effusion of 8 mm, with elevated RVSP and inferior vena cava greater than 2 cm suggestive of volume overload. Recommended to continue with hemodialysis, with extra 1-1.5 l of ultrafiltration above her baseline ultrafiltration goal per hemodialysis session. The cardiology team will sign off on this case, as the patient pain is unrelated to cardiac problem. Exam Vital Signs Temp Pulse Resp BP Pulse Ox O2 Del Method 97.6 F 107 H 16 155/88 H 96 Room Air 11/18/24 20:00 11/18/24 20:00 11/18/24 20:00 11/18/24 20:00 11/18/24 20:00 11/18/24 20:00 Narrative Exam General: No acute distress, Alert and Oriented x 3 HEENT: Moist mucous membranes, oropharynx clear, in cervical collar Neck: Supple, No masses, No JVD CVS: S1S2 Regular rate and rhythm, No murmurs, rubs or gallops Lungs: Clear to auscultation with no accessory use, no wheeze no rhonchi Abd: Soft, NT/ND, +BS, no organomegaly Ext: No edema, warm and well perfused, left BKA, left arm with scar alley Skin: No rash Psych: In moderate pain Objective Labs 11/18/24 05:02 11/18/24 05:02 Labs: Laboratory Results - last 24 hr 11/18/24 11/18/24 05:02 05:45 WBC 11.9 H RBC 3.45 L Hgb 9.1 L Hct 30.9 L MCV 90 MCH 26.4 MCHC 29.4 L RDW Std Deviation 58.3 H Plt Count 410 D Neut % (Auto) 68 Lymph % (Auto) 21 [place] % (Auto) 7 Eos % (Auto) 3 Baso % (Auto) 1 Neut # (Auto) 8.1 H Lymph # (Auto) 2.4 [place] # (Auto) 0.9 H Eos # (Auto) 0.4 Baso # (Auto) 0.1 Immature Gran # (Auto) 0.06 H Absolute Nucleated RBC 0.00 Immature Gran % 1 H Nucleated RBC % 0 PT 11.5 INR 1.1 APTT 33.9 Sodium 135 L Potassium 6.1 H* Chloride 97 L Carbon Dioxide 27.4 Anion Gap 11 BUN 18 Creatinine 4.9 H* D Estim Creat Clear Calc 13.2 L eGFR 11 L* BUN/Creatinine Ratio 4 L Glucose [address] Glu mg/dL 131 Hemoglobin A1c 6.2 H Calculated Osmolality 273 L Calcium 8.6 Corrected Calcium 8.9 Phosphorus 5.2 H Magnesium 1.7 Total Bilirubin 0.3 AST 10 ALT < 7 L Alkaline Phosphatase 93 Total Protein 6.9 Albumin 3.6 Globulin 3.3 Albumin/Globulin Ratio 1.1 L Triglycerides 69 Cholesterol 123 L LDL Cholesterol, Calc 66 HDL Cholesterol 43 Cholesterol/HDL Ratio 2.9 L TSH 2.36 Random Vancomycin 20.4 Cancelled Quality Measures Quality Measures none Assessment & Plan Assessment Current Active Medications: Generic Name Dose Route Start Last Admin Trade Name Freq PRN Reason Stop Dose Admin Acetaminophen 650 mg 11/17/24 10:45 Acetaminophen 325 Mg Tablet PO 12/17/24 10:44 Q6H PRN Fever >100 or pain 1-3 Hydrocodone Bitart/Acetaminophen 1 tab 11/17/24 10:46 11/18/24 14:44 Hydrocodone/Apap 5/325 Tablet PO 11/22/24 10:45 1 tab Q4HR PRN Administration PAIN SCALE 4-6 (Moderate Amlodipine Besylate 5 mg 11/17/24 11:00 11/18/24 09:07 Amlodipine Besylate 5 Mg Tablet PO 12/17/24 10:59 5 mg QDAY NASREEN Administration Dextrose 25 ml 11/17/24 10:46 Dextrose 50%-Water Inj 50 Ml Syringe IV 12/17/24 10:45 Q15MIN PRN BG 50-70 responsive npo pt Dextrose 50 ml 11/17/24 10:46 Dextrose 50%-Water Inj 50 Ml Syringe IV 12/17/24 10:45 Q15MIN PRN BG <50 OR BG <70 & pt unresponsive Glucagon 1 mg 11/17/24 10:46 Glucagon Inj 1 Mg Vial IM Q15MIN PRN BG <70, and no IV access Heparin Sodium (Porcine) 5,000 unit 11/17/24 11:00 11/18/24 20:59 Heparin Sod Inj 5000 Unit/Ml Vial SC 12/01/24 10:59 Not Given Q12HR [facility] Heparin Sodium (Porcine) 4,100 unit 11/17/24 10:44 11/18/24 15:42 Heparin Sod Inj 1000 Unit/Ml Vial 10 Ml INDWELLCAT 12/01/24 10:43 4,100 unit X1 PRN Administration DIALYSIS Hydromorphone HCl 0.25 mg 11/18/24 11:20 11/18/24 15:57 Hydromorphone Inj 2 Mg/Ml Vial IVP 11/23/24 10:31 0.25 mg Q6H PRN Administration breakthrough pain Albumin Human 25 gm in 100 mls @ 100 mls/min 11/17/24 10:44 Albuminar-25 Ivpb IV 11/20/24 10:43 PRN PRN DIALYSIS Insulin Human Lispro 0 unit 11/17/24 11:30 11/18/24 18:59 Insulin Lispro (Admelog) 1 Unit/0.01 Ml Unit SC 12/17/24 11:29 Not Given AC [facility] Protocol Lidocaine 1 patch 11/18/24 15:50 11/18/24 15:56 Lidocaine 5% 1 Patch TOP 12/18/24 15:49 1 patch DAILY NASREEN Administration Ondansetron HCl 4 mg 11/17/24 10:46 Ondansetron Inj 2 Mg/Ml Inj 2 Ml IVP 12/17/24 10:45 Q6H PRN NAUSEA OR VOMITING Protocol Pantoprazole Sodium 40 mg 11/17/24 11:00 11/18/24 09:05 Pantoprazole Inj 40 Mg Vial IVP 12/17/24 10:59 40 mg QDAY NASREEN Administration Pharmacy Consult 1 each 11/17/24 09:00 Vancomycin Pharmacy To Dose 1 Each Each IV 12/17/24 08:59 QDAY PRN CONSULT Pharmacy Consult 1 each 11/17/24 08:13 Pharmacy Renal Dose Adjustment 1 Ea XX 12/17/24 08:12 PRN PRN CONSULT Silver Sulfadiazine 0 gm 11/18/24 21:00 11/18/24 20:52 Silver Sulfadiazine Cr 1% 25 Gm Tube TOP 11/25/24 20:59 1 applicatio BID [facility] Administration Plan The patient is a 44-year-old female with past medical history significant for ESRD on HD MWF, type 2 diabetes mellitus, hypertension, s/p recent fistula placement on 10/20/2024 seizure disorder associated with muscle spasm of upper extremities, who had presented to ED recently on 11/10/2024 with chief complaint of upper back and posterior shoulder pain presented to ED on 11/17/2024 for the same complaint. The patient was admitted for further management of upper back pain. Cardiology consultation was done for further management of pericardial effusion. #Pericardial effusion #Rule out cardiac tamponade #ACS ruled out #Possible CHF exacerbation #Rule out arrhythmia #Volume overload #ESRD on HD MWF Likely secondary to volume overload in the setting of ESRD on HD. BNP on previous presentation was 659, on this presentation 406, troponins negative, EKG revealing no significant ST segment or T wave changes. Patient denies any chest pain, palpitations, orthopnea or PND, or any dizziness. CTA chest revealed pericardial effusion measuring up to 26 mm with mild enlargement of cardiac countour, x-ray on 11/10/2024 was also significant for mild enlargement of cardiac contour -Telemetry monitoring -Prelim TTE revealed pericardial effusion of 6 mm, and mildly elevated RSVP with inferior vena cava greater than 2 cm, suggestive of volume overload. - Recommended extra ultrafiltration during hemodialysis, 1 to 1.5 L extra ultrafiltration of baseline ultrafiltration goal per hemodialysis session as previous patient BNP was 659, and in this presentation it was 406, likely suggestive of volume overload in the setting of ESRD on HD. - Maintain potassium and magnesium greater than 4 and 2 respectively at all the time - Recommended outpatient follow-up with automatic presser to be arranged by PCP #GPC bacteremia - Recommended ceftriaxone 2 g daily - Vancomycin renally dosed #Intractable upper back pain #Intractable bilateral posterior shoulder pain #History of seizure disorder with upper back muscle spasm - Pain management - MRI revealed abnormal signal replacing the C5 and C6 vertebral body suspicious for osseous metastatic disease #Hypertension Blood pressure was in 140s/90s Pain management - May increase amlodipine from 5 mg daily to 10 mg daily if blood pressure is not well-controlled after pain management #Diabetes mellitus type 2 - Maintain euglycemia Management of other problems deferred to primary hospitalist team. Thank you for cardiology consultation. We appreciate the opportunity to participate in this patient's care. Cardiology team will sign off on this patient for now, if required, we will be happy to participate again in the near future. The patient's management plan was discussed with my attending physician MD Moises Blackwell MD, PGY3 Attending Provider Attestation/Addendum I have personally seen and examined the patient separately on the above date of service and discussed the plan of care with the resident. I reviewed the resident Dr. Moises Jiménez excellent consultation progress note and agree with the resident findings and plan in the note above and have also edited the documentation to reflect my findings and plan. As noted in the HPI above patient with multiple comorbid's including end-stage renal disease on hemodialysis appears to be noncompliant with her dialysis sessions. Patient is significantly fluid overloaded on examination. Reviewed the CT and it only shows at the most moderate effusion but was measured at [address] chest always overestimates amount of pericardial effusion and the will order an echocardiogram to reevaluated and mostly the patient only has a small effusion. Will need to rule out cardiac tamponade but patient is hemodynamically stable and no evidence of any PACs tried that was noted. Patient is sitting and doing well. Patient does inform me that she did miss stations in between and she makes up position slightly of the point of time which could also lead to slowly fluid overload over a period of time. For now patient recommended to get daily dialysis sessions and removal additional fluid during the each dialysis session if the blood pressure continues to be stable along with the rest of the vitals. There was some question of chest pain but during my examination patient did not have any chest pain and was doing well her shortness of breath is improved and is on oxygen. EKG did not show any acute ST-T changes suggestive of ischemia. Troponins 2 sets were negative. Will continue to follow the echocardiogram and there is no regional wall motion abnormalities no need of any ischemic evaluation. Patient recommended to follow-up with primary care doctor and obtain a cardiology evaluation as outpatient for further ischemic evaluation given her multiple comorbidities. 11/19/2023 - Echo completed today showed small posterior pericardial effusion less than 0.8 cm. Appears loculated. No evidence of cardiac tamponade. Normal LV size and function. Estimated EF of 55 to 60%. Diastolic function could not be assessed. Mildly dilated RV with normal RV function. Estimated RVSP moderately elevated at around 40-45 mmHg IVS flat in both systole and diastole consisten with RV pressure and volume overload. Mild MAC with mild to moderate MR. Mild TR. Moderately dilated LA and mildly dilated RA. Dilated IVC. For now patient recommended to get daily dialysis sessions and removal additional fluid during the each dialysis session if the blood pressure continues to be stable along with the rest of the vitals. Patient recommended to regularly go to all her dialysis sessions as recommended and order. If tunneled pericardial effusion will improve and recommended to follow-up with cardiology as outpatient in 3 months for repeat echo As echo did not show any regional wall motion abnormalities and EF is normal, troponins negative and no additional chest pain for now. No further ischemic workup needed as inpatient and can be continued as outpatient as noted above. Management of rest of the medical conditions as per primary team and other consultants. Thank you for the consult and allowing me to participate in the care of the patient. Cardiology will continue to follow. Cody Andrade M.D. Interventional Cardiology
[2024-11-19] VITALS (7 sets, daily range): BP systolic 137–150; BP diastolic 81–92; PULSE 93–100; RESP 15–18; TEMP 36.1–36.6; O2SAT 92–97; BMI 30.2
[2024-11-19] MEDS: HYDROmorphone INJ 2 MG/ML VIAL 0.25 MG IVP ×4 (00:04→20:08)
[2024-11-19] MEDS: HYDROcodone/APAP 5/325 TABLET 1 TAB PO ×2 (04:39→22:44)
[2024-11-19 06:30] LABS: Basophils # (Auto) 0.1 Thou/mm3 (0.0-0.2); Basophils % (Auto) 0 % (0-2.5); Eosinophils # (Auto) 0.2 Thou/mm3 (0.0-0.5); Eosinophils % (Auto) 1 % (0-10); Hematocrit 31.1 % (36.0-46.0); Hemoglobin 9.5 g/dL (12.0-16.0); Immature Granulocytes Auto 0.06 Thou/mm3 (0.00-0.00); Lymphocytes # (Auto) 2.2 Thou/mm3 (1.0-4.8); Lymphocytes % (Auto) 18 % (10-50); Mean Corpuscular HGB Conc 30.5 g/dl (31.0-37.0); Mean Corpuscular Hemoglobin 26.8 pg (25.0-35.0); Mean Corpuscular Volume 88 fL (80-100); Monocytes # (Auto) 0.8 Thou/mm3 (0.0-0.8); Monocytes % (Auto) 6 % (0-12); Neutrophils # (Auto) 8.8 Thou/mm3 (1.8-7.7); Neutrophils % (Auto) 73 % (37-80); Nucleated Red Blood Cell # 0.00 Thou/mm3 (0.00-0.00); Nucleated Red Blood Cell % 0 /100 WBC (0); Platelet Count 476 Thou/mm3 (140-440); RDW Standard Deviation 55.5 fL (36.4-46.3); Red Blood Count 3.55 Miln/mm3 (4.00-5.20); White Blood Count 12.0 Thou/mm3 (3.6-11.0)
[2024-11-19 07:02] LABS: Alanine Aminotransferase < 7 U/L (10-49); Albumin, Serum 3.6 gm/dL (3.5-5.0); Albumin/Globulin Ratio 1.1 (1.2-2.2); Alkaline Phosphatase 95 U/L (46-116); Anion Gap 7 (7-16); Aspartate Amino Transferase < 10 U/L (0-34); BUN/Creatinine Ratio 4 Ratio (12-20); Bilirubin,Total 0.4 mg/dL (0.3-1.2); Blood Urea Nitrogen 16 mg/dL (9-23); Calcium 8.5 mg/dL (8.3-10.6); Calcium (Corrected) 8.8 mg/dL (8.5-10.1); Carbon Dioxide 28.0 mMol/L (20.0-31.0); Chloride 99 mMol/L (98-107); Creatinine (Component) 4.4 mg/dL (0.6-1.3); Estimated Creatinine Clearance 14.7 mL/min (>60); Globulin 3.4 gm/dL (2.3-3.5); Glucose 147 mg/dL (74-106); Magnesium 2.0 mg/dL (1.6-2.6); Osmolality,Calculated 272 (275-295); Phosphorous 4.5 mg/dL (2.4-5.1); Potassium 5.0 mMol/L (3.4-5.1); Sodium 134 mMol/L (136-145); Total Protein 7.0 gm/dL (5.7-8.2); Vancomycin,Random 13.2 mcg/mL; eGFR 12 See Note
[2024-11-19] MEDS: HEPARIN SOD INJ 5000 UNIT/ML VIAL SC ×2 (09:56→21:03)
[2024-11-19] MEDS: SILVER SULFADIAZINE CR 1% 25 GM TUBE TOP ×2 (09:56→21:04)
[2024-11-19 11:49] LABS: Sed Rate (ESR) 94 mm/hr (0-20)
--- NOTE | 2024-11-19 13:26 | PC.PT ---
Chart reviewed prior to initiating PT evaluation. Patient's PLOF was non ambulatory and can only transfer. Patient's wc is at bedside. Attempt to initiate PT evaluation at 1030. Sister at bedside. Patient is currently wearing a soft cervical collar. Patient states she doesn't feel like getting up today. This PT explained the purpose of PT evaluation. Patient states she can do it. She can transfer. This PT confirmed twice. She said she can. This PT educated the patient, that it will be best to have a bedside commode for her so that patient will not get weaker while she is at the hospital. Patient verbalized understanding and is in agreement to use the BC. Informed PRODUCTION BROACHER and RN. Will cancel PT evaluation.
--- NOTE | 2024-11-19 13:38 | PD.RESPRO ---
Documentation for date of: 11/19/24 Subjective Subjective Interval history: Overnight events: No acute events overnight. Patient was seen and examined at bedside. AM vitals and labs reviewed. WBC 12.0, potassium 5.0, BUN 16, creatinine 4.4, GFR 12, phosphate 4.5, magnesium 2.0. HD done yesterday for 3 hours and 3 minutes, net fluid removal of 2 L. During HD yesterday, the patient was hypertensive throughout treatment with SBP 150?175 and DBP 80?100. Cardiology did TTE which showed ejection fraction of 55 to 60%, a small posterior pericardial effusion less than 0.8 cm, and IVC greater than 2 cm suggestive of volume overload. Due to these nonacute findings, cardiology signed off. MRI C-spine was done yesterday, which showed limited study, abnormal signal C5-C6 suspicious for osseous metastatic disease. Due to the limited study as the patient was most likely in pain and moving around in the MRI, we will repeat MRI study with contrast and increased patient sedation. Will plan for HD after MRI C-spine with contrast. During today's visit, the patient was tearful and crying out due to pain. The patient had not received any pain medication earlier today as she felt that the pain was well-controlled, however her pain started acting up again early in the afternoon. Other than neck and back pain, the patient has no other major concerns. Her chest pain is still present and has not changed much compared to yesterday. Review of systems otherwise negative except for what is mentioned above. Exam Vital Signs Temp Pulse Resp BP Pulse Ox O2 Del Method 97.5 F 94 16 145/90 H 93 L Room Air 11/19/24 08:00 11/19/24 09:56 11/19/24 08:00 11/19/24 09:56 11/19/24 08:00 11/19/24 08:00 Narrative Exam General: Alert, no acute distress, tearful. Absent left leg. Skin: Warm, dry, intact, no obvious rash. Healed laceration-like wound on left medial arm. Head: Normocephalic, atraumatic. Eye: Normal conjunctiva, PERRL. Cardiovascular: Regular rate and rhythm, no murmur, +S1/S2. Respiratory: Lungs are clear to auscultation, respirations unlabored, no crackles, no wheezing. Gastrointestinal: Soft, nontender, non-distended. No guarding or rebound tenderness. Extremities: 1+ edema in RLE, no cyanosis, no clubbing. 2+ radial pulse bilaterally, 2+ pedal pulse on right side. Neuro: No focal deficits observed. Conversant, moving all extremities. No overt cerebellar signs/incoordination. Psychiatric: Cooperative, tearful affect. Objective Labs 11/21/24 09:35 11/21/24 15:03 Labs: Laboratory Results - last 24 hr 11/19/24 05:10 WBC 12.0 H RBC 3.55 L Hgb 9.5 L Hct 31.1 L MCV 88 MCH 26.8 MCHC 30.5 L RDW Std Deviation 55.5 H Plt Count 476 H D Neut % (Auto) 73 Lymph % (Auto) 18 [place] % (Auto) 6 Eos % (Auto) 1 Baso % (Auto) 0 Neut # (Auto) 8.8 H Lymph # (Auto) 2.2 [place] # (Auto) 0.8 Eos # (Auto) 0.2 Baso # (Auto) 0.1 Immature Gran # (Auto) 0.06 H Absolute Nucleated RBC 0.00 Immature Gran % 1 H Nucleated RBC % 0 ESR 94 H Sodium 134 L Potassium 5.0 D Chloride 99 Carbon Dioxide 28.0 Anion Gap 7 BUN 16 Creatinine 4.4 H* D Estim Creat Clear Calc 14.7 L eGFR 12 L* BUN/Creatinine Ratio 4 L Glucose 147 H Calculated Osmolality 272 L Calcium 8.5 Corrected Calcium 8.8 Phosphorus 4.5 Magnesium 2.0 Total Bilirubin 0.4 AST < 10 ALT < 7 L Alkaline Phosphatase 95 Total Protein 7.0 Albumin 3.6 Globulin 3.4 Albumin/Globulin Ratio 1.1 L Random Vancomycin 13.2 Quality Measures Quality Measures VTE prophylaxis Assessment & Plan Assessment Current Active Medications: Generic Name Dose Route Start Last Admin Trade Name Freq PRN Reason Stop Dose Admin Acetaminophen 650 mg 11/17/24 10:45 Acetaminophen 325 Mg Tablet PO 12/17/24 10:44 Q6H PRN Fever >100 or pain 1-3 Hydrocodone Bitart/Acetaminophen 1 tab 11/17/24 10:46 11/19/24 04:39 Hydrocodone/Apap 5/325 Tablet PO 11/22/24 10:45 1 tab Q4HR PRN Administration PAIN SCALE 4-6 (Moderate Amlodipine Besylate 5 mg 11/17/24 11:00 11/19/24 09:56 Amlodipine Besylate 5 Mg Tablet PO 12/17/24 10:59 5 mg QDAY NASREEN Administration Dextrose 25 ml 11/17/24 10:46 Dextrose 50%-Water Inj 50 Ml Syringe IV 12/17/24 10:45 Q15MIN PRN BG 50-70 responsive npo pt Dextrose 50 ml 11/17/24 10:46 Dextrose 50%-Water Inj 50 Ml Syringe IV 12/17/24 10:45 Q15MIN PRN BG <50 OR BG <70 & pt unresponsive Glucagon 1 mg 11/17/24 10:46 Glucagon Inj 1 Mg Vial IM Q15MIN PRN BG <70, and no IV access Heparin Sodium (Porcine) 5,000 unit 11/17/24 11:00 11/19/24 09:56 Heparin Sod Inj 5000 Unit/Ml Vial SC 12/01/24 10:59 5,000 unit Q12HR NASREEN Administration Heparin Sodium (Porcine) 4,100 unit 11/17/24 10:44 11/18/24 15:42 Heparin Sod Inj 1000 Unit/Ml Vial 10 Ml INDWELLCAT 12/01/24 10:43 4,100 unit X1 PRN Administration DIALYSIS Hydromorphone HCl 0.25 mg 11/18/24 11:20 11/19/24 00:04 Hydromorphone Inj 2 Mg/Ml Vial IVP 11/23/24 10:31 0.25 mg Q6H PRN Administration breakthrough pain Albumin Human 25 gm in 100 mls @ 100 mls/min 11/17/24 10:44 Albuminar-25 Ivpb IV 11/20/24 10:43 PRN PRN DIALYSIS Vancomycin/Sodium Chloride 100 mls @ 120 mls/hr 11/19/24 14:00 Vancomycin/Ns 500 Mg Ivpb IV 11/19/24 14:49 X1 ONE Insulin Human Lispro 0 unit 11/17/24 11:30 11/19/24 09:53 Insulin Lispro (Admelog) 1 Unit/0.01 Ml Unit SC 12/17/24 11:29 Not Given AC [facility] Protocol Lidocaine 1 patch 11/18/24 15:50 11/18/24 15:56 Lidocaine 5% 1 Patch TOP 12/18/24 15:49 1 patch DAILY NASREEN Administration Ondansetron HCl 4 mg 11/17/24 10:46 Ondansetron Inj 2 Mg/Ml Inj 2 Ml IVP 12/17/24 10:45 Q6H PRN NAUSEA OR VOMITING Protocol Pantoprazole Sodium 40 mg 11/17/24 11:00 11/19/24 09:55 Pantoprazole Inj 40 Mg Vial IVP 12/17/24 10:59 40 mg QDAY NASREEN Administration Pharmacy Consult 1 each 11/17/24 09:00 Vancomycin Pharmacy To Dose 1 Each Each IV 12/17/24 08:59 QDAY PRN CONSULT Pharmacy Consult 1 each 11/17/24 08:13 Pharmacy Renal Dose Adjustment 1 Ea XX 12/17/24 08:12 PRN PRN CONSULT Silver Sulfadiazine 0 gm 11/18/24 21:00 11/19/24 09:56 Silver Sulfadiazine Cr 1% 25 Gm Tube TOP 11/25/24 20:59 1 applicatio BID NASREEN Administration Plan Mrs. Bajwa is a 44-year-old female with a past medical history of ESRD on HD MWF, status post fistula placement on 10/20/2024, T2DM, HTN, asthma, and status post left leg amputation, who presented to the ED from home with chief complaint of neck, back, and chest pain. Nephrology was consulted for ESRD management as Dr. Orantes is well-known to this patient. #ESRD on HD MWF #Hyperkalemia (resolved) Patient is known to Dr. Livingston and is scheduled for MWF HD outpatient. Patient missed HD today (11/17/24) as she went to the ER for her neck and back pain instead. - HD performed 11/17 and 11/18. - HD performed on 11/18 due to concerns of hyperkalemia after 11/17 HD session. - Plan for HD today 11/19 after MRI c-spine with contrast. Afterwards, plan for HD on Friday. - IV hydration as tolerated. - Avoid nephrotoxic drugs. - Nephrology will continue to follow. Patient was discussed with the Nephrology attending, Dr. Livingston. Thank you for allowing us to participate in the care of this patient. Pipo Fernandes, PGY-1 Attending Provider Attestation/Addendum Pt is seen and examined. Labs and other investigations reviewed. Agree with assessment and plan and finding by resident. Bala Livingston MD
[2024-11-19 13:51] LABS: C-Reactive Protein 8.6 mg/dL (0.0-0.9)
--- NOTE | 2024-11-19 16:39 | PC.NURSE ---
MRI was not done today. Dr Livingston made aware. Ordered to re-schedule HD tomorrow post MRI with contrast.
[2024-11-19] MEDS: VANCOMYCIN/NS 500 MG IVPB 100 ML 120 MG IV (16:46)
[2024-11-19] MEDS: CIPROFLOXACIN HCL 250 MG TABLET PO (17:57)
--- NOTE | 2024-11-19 17:59 | ESPR_ITS ---
<Statement entered by Kitty Thomas MD - 11/19/24 18:21> In summary: 44-year-old female PMHx of ESRD HD MWF, recent LUE fistula placed on 10/20/2024, T2DM, HTN, presented initially with upper back and bilateral posterior shoulder pain with CTA findings of 26 mm pericardial effusion, and found to have pleuritic chest pain suggestive of pericarditis. Per chart review, she was in the ED on 11/10 with blood culture growing GPC. The likely source of pericarditis possibly blood-borne, recent fistula, or less likely uremic given BUN not significantly elevated. Currently on broad-spectrum ANTIBIOTICS. Cardiology on board, echocardiogram pending. Continued on inpatient HD with nephrology. Has been complaining of posterior shoulder pain. On exam she was found to have a tender nodule over posterior cervical spine. Pain management ordered. CT cervical spine was ordered and we'll follow-up on results. Case was discussed with attending physician. Kitty Thomas DO PGY II Documentation for date of: 11/19/24 Subjective Subjective Interval history: Patient was seen and examined at bedside. No acute events took place overnight. Pt sits comfortably in her bed. Pain was controlled with hydromorphone 0.5mg x2 during the night. Exam Vital Signs Temp Pulse Resp BP Pulse Ox O2 Del Method 97.0 F 96 18 150/91 H 92 L Room Air 11/19/24 16:00 11/19/24 16:00 11/19/24 16:00 11/19/24 16:00 11/19/24 16:00 11/19/24 16:00 Narrative Exam General: Alert and oriented x3, No apparent distress. Skin: Intact, Warm, no rashes. HEENT: Normocephalic, Atraumatic. Normal neck range of motion, Supple. Trachea midline. Respiratory: Lungs are clear to auscultation, Breath sounds are equal bilaterally with equal chest expansion. Cardiovascular: RRR, normal S1, S2, No murmurs. Distal pulses 2+ Abdomen: Abdomen soft, non-distended, without erythema, or lesions. Normotensive bowel sounds x4. Percussion tympanic. Palpation nontender in all four quadrants. No organomagely. No guarding or rebound present. Extremities: Lt below knee amputation. Site of incision for dialysis fistula on the left arm medial side. Erythema and skin hyperkeratosis around the neck, spreading down the back. muscle hypertonicity Lt posterior shoulder. Musculoskeletal: No swelling, moving all 4 extremities with FROM Neurologic: Alert, Oriented, No focal deficits. Moving all 4 extremities spontaneously Psych: Thoughts linear and responses appropriate Objective Objective Narrative Objective Narrative: . Labs 11/20/24 04:32 11/20/24 04:32 Labs: Laboratory Results - last 24 hr 11/19/24 05:10 WBC 12.0 H RBC 3.55 L Hgb 9.5 L Hct 31.1 L MCV 88 MCH 26.8 MCHC 30.5 L RDW Std Deviation 55.5 H Plt Count 476 H D Neut % (Auto) 73 Lymph % (Auto) 18 [place] % (Auto) 6 Eos % (Auto) 1 Baso % (Auto) 0 Neut # (Auto) 8.8 H Lymph # (Auto) 2.2 [place] # (Auto) 0.8 Eos # (Auto) 0.2 Baso # (Auto) 0.1 Immature Gran # (Auto) 0.06 H Absolute Nucleated RBC 0.00 Immature Gran % 1 H Nucleated RBC % 0 ESR 94 H Sodium 134 L Potassium 5.0 D Chloride 99 Carbon Dioxide 28.0 Anion Gap 7 BUN 16 Creatinine 4.4 H* D Estim Creat Clear Calc 14.7 L eGFR 12 L* BUN/Creatinine Ratio 4 L Glucose 147 H Calculated Osmolality 272 L Calcium 8.5 Corrected Calcium 8.8 Phosphorus 4.5 Magnesium 2.0 Total Bilirubin 0.4 AST < 10 ALT < 7 L Alkaline Phosphatase 95 C-Reactive Prot, Quant 8.6 H Total Protein 7.0 Albumin 3.6 Globulin 3.4 Albumin/Globulin Ratio 1.1 L Random Vancomycin 13.2 Quality Measures Quality Measures VTE prophylaxis Assessment & Plan Assessment Current Active Medications: Generic Name Dose Route Start Last Admin Trade Name Freq PRN Reason Stop Dose Admin Acetaminophen 650 mg 11/17/24 10:45 Acetaminophen 325 Mg Tablet PO 12/17/24 10:44 Q6H PRN Fever >100 or pain 1-3 Hydrocodone Bitart/Acetaminophen 1 tab 11/17/24 10:46 11/19/24 04:39 Hydrocodone/Apap 5/325 Tablet PO 11/22/24 10:45 1 tab Q4HR PRN Administration PAIN SCALE 4-6 (Moderate Amlodipine Besylate 5 mg 11/17/24 11:00 11/19/24 09:56 Amlodipine Besylate 5 Mg Tablet PO 12/17/24 10:59 5 mg QDAY NASREEN Administration Ciprofloxacin 250 mg 11/19/24 17:15 11/19/24 17:57 Ciprofloxacin Hcl 250 Mg Tablet PO 11/26/24 17:14 250 mg QDAY NASREEN Administration Dextrose 25 ml 11/17/24 10:46 Dextrose 50%-Water Inj 50 Ml Syringe IV 12/17/24 10:45 Q15MIN PRN BG 50-70 responsive npo pt Dextrose 50 ml 11/17/24 10:46 Dextrose 50%-Water Inj 50 Ml Syringe IV 12/17/24 10:45 Q15MIN PRN BG <50 OR BG <70 & pt unresponsive Glucagon 1 mg 11/17/24 10:46 Glucagon Inj 1 Mg Vial IM Q15MIN PRN BG <70, and no IV access Heparin Sodium (Porcine) 5,000 unit 11/17/24 11:00 11/19/24 09:56 Heparin Sod Inj 5000 Unit/Ml Vial SC 12/01/24 10:59 5,000 unit Q12HR NASREEN Administration Heparin Sodium (Porcine) 4,100 unit 11/17/24 10:44 11/18/24 15:42 Heparin Sod Inj 1000 Unit/Ml Vial 10 Ml INDWELLCAT 12/01/24 10:43 4,100 unit X1 PRN Administration DIALYSIS Hydromorphone HCl 0.25 mg 11/18/24 11:20 11/19/24 13:50 Hydromorphone Inj 2 Mg/Ml Vial IVP 11/23/24 10:31 0.25 mg Q6H PRN Administration breakthrough pain Albumin Human 25 gm in 100 mls @ 100 mls/min 11/17/24 10:44 Albuminar-25 Ivpb IV 11/20/24 10:43 PRN PRN DIALYSIS Insulin Human Lispro 0 unit 11/17/24 11:30 11/19/24 17:57 Insulin Lispro (Admelog) 1 Unit/0.01 Ml Unit SC 12/17/24 11:29 Not Given [facility] Protocol Lidocaine 1 patch 11/18/24 15:50 11/19/24 14:50 Lidocaine 5% 1 Patch TOP 12/18/24 15:49 Not Given DAILY [facility] Ondansetron HCl 4 mg 11/17/24 10:46 Ondansetron Inj 2 Mg/Ml Inj 2 Ml IVP 12/17/24 10:45 Q6H PRN NAUSEA OR VOMITING Protocol Pantoprazole Sodium 40 mg 11/17/24 11:00 11/19/24 09:55 Pantoprazole Inj 40 Mg Vial IVP 12/17/24 10:59 40 mg QDAY [facility] Administration Pharmacy Consult 1 each 11/17/24 08:13 Pharmacy Renal Dose Adjustment 1 Ea XX 12/17/24 08:12 PRN PRN CONSULT Silver Sulfadiazine 0 gm 11/18/24 21:00 11/19/24 09:56 Silver Sulfadiazine Cr 1% 25 Gm Tube TOP 11/25/24 20:59 1 applicatio BID [facility] Administration Plan Plan In summary, Jo Bajwa is 44F with PMHx of renal disease on HD (M/W/F) s/p recent fistula placed on 10/20/2024, DM, HTN, and seizure disorder who presented to the ED on 11/17/2024 c/o of upper back pain across shoulders for 6 days. Pt was found to have 26ml of pericardial effusion, and is being admitted for the work up of pericarditis. #Perciardial Effusion #ESRD on HD #volume overload Ddx malignant pericardial effusion, pericarditis, CHF exacerbation -EKG was negative for diffuse ST segment abnormalities. BNP 406, 2+ pitting edema of Rt LE on PE -suggesting volume overload, likely 2/2 volume retention in the context of ESRD and inadequate dialysis. Trop negative, normal EKG. CTA of chest: Mild enlargement cardiac contour Pericardial effusion measuring up to 26 mm No pneumonia or pulmonary edema Negative for pulmonary artery emboli Echo showed small posterior pericardial effusion less than 0.8 cm. ESR 94 and CRP 8.6 (11/19) Plan: - CBC, CMP, Mg, Ca morning draw - Pt at telemetry monitoring - Pt receives HD MWF outpatient with surgical dental assistant Dr Livingston - per cardiology recs, pt can be on extra ultrafiltration setting during hemodialysis for the removal of excess volume. - Maintain K >4 and Mg >2 - F/U outpatient with button clamper #hyperkalemia (resolved) K 6.1 (11/18) -ordered calcium gluconate, insulin 5u, and D50. -Repeat HD on 11/18 recommended by Nephrology # GPC bacteremia (resolved) #Asymptomatic bacteriuria Initial blood culture grew GPC, has been on VANCOMYCIN, repeat blood culture negative after 48 hours. Remains afebrile, leukocytosis stable and likely reactive at this point. MRSA screen negative. UA showed trace bacteria, urine culture grew relatively pansensitive low count enteric faecalis, however as she is asymptomatic. ? Discontinued VANCOMYCIN (11/17 to 11/19) ? Continue CIPROFLOXACIN (11/19 to present) #Intractable upper back pain #Intractable bilateral posterior shoulder pain - multimdodal pain control - [place] 5/325 PRN - Hydromorphone inj 0.25mg PRN - MRI cervical spine 11/18: -- limited study due to excessive patient motion degrading scan quality -- Abnormal signal replacing the C5 and C6 vertebral body suspicious for osseous metastatic disease -- Recommend prestudy IV conscious sedation and repeat examination including post intravenous contrast #hx of seizures #upper back muscle spasm Pt with a hx of life stressors. Seizures could also be 2/2 electrolyte deragements, eg, hyponatremia, in the setting of ESRD. #T2DM Pt on sliding scale insulin #HTN amlodipine PO 5mg Qday per cardiology, the dose may be increased to 10mg Qday if BP is not controlled adequately. #asthma albuterol 25mg PRN Health maintanance: Diet: Routine PPx GI: PPx DVT: code status:Routine Case was discussed with attending physician, Dr. Whitten, and senior resident Dr Thomas. Nael Marcus, DO PGY I Attending Provider Attestation/Addendum I attest that I was physically present for the evaluation, physical examination, lab and imaging review of the patient with the residents. I discussed the case with the residents and agree with the findings and plans of care as documented above. At bedside today, denies any new complaints. We will continue with aggressive hemodialysis and try to remove more fluid. Cardiology following closely for pericardial effusion, appreciate recommendations. Patient noted to have GPC bacteremia, noted to be sensitive to ciprofloxacin, we will discontinue vancomycin. Continues to be on analgesic regimen for intractable back pain. MRI was unclear due to the study from patient motion, we will attempt repeat MRI with conscious sedation Melinda Callaway MD
[2024-11-20] VITALS (25 sets, daily range): BP systolic 130–174; BP diastolic 68–101; PULSE 91–99; RESP 12–19; TEMP 35.9–36.6; O2SAT 93–100; BMI 30.2
--- NOTE | 2024-11-20 | XR_ITS ---
Examination: MRI cervical spine, without intravenous contrast. MRI cervical spine , with intravenous contrast. Exam date and time: November 20, 2024 1452 hours Comparison MRI cervical spine without contrast November 18, 2024 INDICATIONS: Neck pain, CT cervical spine November 10, 2024 sclerotic lesion lateral right body of C2, MR cervical spine without contrast November 18, 2024 abnormal signal replacing the C5, C6 vertebral bodies Technique: Multiple axial, sagittal and coronal images of the cervical spine have been obtained with the Siemens high-resolution 1.5 [place] MRI scanner. Images obtained included T2 weighted fat suppressed sagittal sections, TR 3500, TE 46, T2 weighted coronal fat suppressed images, TR 3050, TE 84, T2-weighted transverse fat suppressed images, TR 30-60, TE 63, proton density transverse images, TR 4720, TE 46, and T1 weighted coronal images, TR 560, TE 13. Axial, sagittal and coronal images are obtained post intravenous injection 7 cc gadolinium. Findings: Precontrast T1 weighted images again demonstrate abnormal signal replacing C5, C6 C5-C6 4 mm central subarticular osteophyte disc complex Postcontrast images do demonstrate abnormal enhancement involving the entire C5 and C6 vertebral bodies, sagittal image 17 with epidural enhancement in addition which is impinging upon the cervical cord, axial image 12 IMPRESSION: Abnormal enhancement involving the entire C5 and C6 vertebral bodies as well as posterior epidural enhancement measuring up to 4 mm in thickness indenting the ventral margin of the cervical cord, differential would include osteomyelitis, discitis, epidural abscess, as well as less likely osseous metastatic disease, clinical correlation advised
[2024-11-20] MEDS: HYDROmorphone INJ 2 MG/ML VIAL 0.25 MG IVP ×3 (02:23→21:05)
[2024-11-20] MEDS: LIDOCAINE 5% 1 PATCH TOP ×2 (04:00→23:17)
[2024-11-20 06:01] LABS: Basophils # (Auto) 0.1 Thou/mm3 (0.0-0.2); Basophils % (Auto) 1 % (0-2.5); Eosinophils # (Auto) 0.2 Thou/mm3 (0.0-0.5); Eosinophils % (Auto) 1 % (0-10); Hematocrit 30.7 % (36.0-46.0); Hemoglobin 9.3 g/dL (12.0-16.0); Immature Granulocytes Auto 0.05 Thou/mm3 (0.00-0.00); Lymphocytes # (Auto) 1.9 Thou/mm3 (1.0-4.8); Lymphocytes % (Auto) 15 % (10-50); Mean Corpuscular HGB Conc 30.3 g/dl (31.0-37.0); Mean Corpuscular Hemoglobin 26.2 pg (25.0-35.0); Mean Corpuscular Volume 87 fL (80-100); Monocytes # (Auto) 0.9 Thou/mm3 (0.0-0.8); Monocytes % (Auto) 7 % (0-12); Neutrophils # (Auto) 10.1 Thou/mm3 (1.8-7.7); Neutrophils % (Auto) 76 % (37-80); Nucleated Red Blood Cell # 0.00 Thou/mm3 (0.00-0.00); Nucleated Red Blood Cell % 0 /100 WBC (0); Platelet Count 474 Thou/mm3 (140-440); RDW Standard Deviation 55.6 fL (36.4-46.3); Red Blood Count 3.55 Miln/mm3 (4.00-5.20); White Blood Count 13.2 Thou/mm3 (3.6-11.0)
[2024-11-20 06:35] LABS: Alanine Aminotransferase < 7 U/L (10-49); Albumin, Serum 3.6 gm/dL (3.5-5.0); Albumin/Globulin Ratio 1.1 (1.2-2.2); Alkaline Phosphatase 95 U/L (46-116); Anion Gap 10 (7-16); Aspartate Amino Transferase < 10 U/L (0-34); BUN/Creatinine Ratio 4 Ratio (12-20); Bilirubin,Total 0.4 mg/dL (0.3-1.2); Blood Urea Nitrogen 24 mg/dL (9-23); Calcium 8.8 mg/dL (8.3-10.6); Calcium (Corrected) 9.1 mg/dL (8.5-10.1); Carbon Dioxide 26.0 mMol/L (20.0-31.0); Chloride 99 mMol/L (98-107); Creatinine (Component) 5.8 mg/dL (0.6-1.3); Estimated Creatinine Clearance 11.2 mL/min (>60); Globulin 3.2 gm/dL (2.3-3.5); Glucose 113 mg/dL (74-106); Magnesium 1.6 mg/dL (1.6-2.6); Osmolality,Calculated 275 (275-295); Phosphorous 4.8 mg/dL (2.4-5.1); Potassium 5.6 mMol/L (3.4-5.1); Sodium 135 mMol/L (136-145); Total Protein 6.8 gm/dL (5.7-8.2); Vancomycin,Random 22.9 mcg/mL; eGFR 9 See Note
[2024-11-20] MEDS: CIPROFLOXACIN HCL 250 MG TABLET PO (08:32)
[2024-11-20] MEDS: SILVER SULFADIAZINE CR 1% 25 GM TUBE TOP ×2 (08:32→23:16)
[2024-11-20] MEDS: HEPARIN SOD INJ 5000 UNIT/ML VIAL SC ×2 (08:32→21:06)
[2024-11-20] MEDS: DEXTROSE 50%-WATER INJ 50 ML SYRINGE IVP (10:59)
[2024-11-20] MEDS: INSULIN HUM REGULAR 1 UNIT/0.01 ML (PER UNIT) 10 UNIT IV (11:01)
[2024-11-20] MEDS: DICLOFENAC 1% TOP GEL 100 GM TUBE TOP (11:48)
[2024-11-20] MEDS: ALBUTEROL RT 2.5 MG/0.5 ML NEBU INH (11:55)
[2024-11-20] MEDS: LORazepam 2 MG/ML VIAL 0.5 MG IVP (14:34)
--- NOTE | 2024-11-20 18:12 | PD.RESPRO ---
Documentation for date of: 11/20/24 Subjective Subjective Interval history: Patient was seen and examined at bedside. No acute events took place overnight. Pt sits comfortably in her bed. Pain was controlled with hydromorphone 0.5mg x2 during the night. Exam Vital Signs Temp Pulse Resp BP Pulse Ox O2 Del Method 97.7 F 94 19 166/91 H 96 Room Air 11/20/24 17:08 11/20/24 18:00 11/20/24 17:08 11/20/24 18:00 11/20/24 17:08 11/20/24 16:00 Narrative Exam General: Alert and oriented x3, No apparent distress. Skin: Intact, Warm, no rashes. HEENT: Normocephalic, Atraumatic. Normal neck range of motion, Supple. Trachea midline. Respiratory: Lungs are clear to auscultation, Breath sounds are equal bilaterally with equal chest expansion. Cardiovascular: RRR, normal S1, S2, No murmurs. Distal pulses 2+ Abdomen: Abdomen soft, non-distended, without erythema, or lesions. Normotensive bowel sounds x4. Percussion tympanic. Palpation nontender in all four quadrants. No organomagely. No guarding or rebound present. Extremities: Lt below knee amputation. Site of incision for dialysis fistula on the left arm medial side. Erythema and skin hyperkeratosis around the neck, spreading down the back. muscle hypertonicity Lt posterior shoulder. Musculoskeletal: No swelling, moving all 4 extremities with FROM Neurologic: Alert, Oriented, No focal deficits. Moving all 4 extremities spontaneously Psych: Thoughts linear and responses appropriate Objective Objective Narrative Objective Narrative: . Labs 11/21/24 09:35 11/21/24 15:03 Labs: Laboratory Results - last 24 hr 11/20/24 04:32 WBC 13.2 H RBC 3.55 L Hgb 9.3 L Hct 30.7 L MCV 87 MCH 26.2 MCHC 30.3 L RDW Std Deviation 55.6 H Plt Count 474 H Neut % (Auto) 76 Lymph % (Auto) 15 [place] % (Auto) 7 Eos % (Auto) 1 Baso % (Auto) 1 Neut # (Auto) 10.1 H Lymph # (Auto) 1.9 [place] # (Auto) 0.9 H Eos # (Auto) 0.2 Baso # (Auto) 0.1 Immature Gran # (Auto) 0.05 H Absolute Nucleated RBC 0.00 Immature Gran % 0 Nucleated RBC % 0 Sodium 135 L Potassium 5.6 H D Chloride 99 Carbon Dioxide 26.0 Anion Gap 10 BUN 24 H Creatinine 5.8 H* D Estim Creat Clear Calc 11.2 L eGFR 9 L* BUN/Creatinine Ratio 4 L Glucose 113 H Calculated Osmolality 275 Calcium 8.8 Corrected Calcium 9.1 Phosphorus 4.8 Magnesium 1.6 Total Bilirubin 0.4 AST < 10 ALT < 7 L Alkaline Phosphatase 95 Total Protein 6.8 Albumin 3.6 Globulin 3.2 Albumin/Globulin Ratio 1.1 L Random Vancomycin 22.9 Quality Measures Quality Measures VTE prophylaxis Assessment & Plan Assessment Current Active Medications: Generic Name Dose Route Start Last Admin Trade Name Freq PRN Reason Stop Dose Admin Acetaminophen 650 mg 11/17/24 10:45 Acetaminophen 325 Mg Tablet PO 12/17/24 10:44 Q6H PRN Fever >100 or pain 1-3 Hydrocodone Bitart/Acetaminophen 1 tab 11/17/24 10:46 11/19/24 22:44 Hydrocodone/Apap 5/325 Tablet PO 11/22/24 10:45 1 tab Q4HR PRN Administration PAIN SCALE 4-6 (Moderate Amlodipine Besylate 5 mg 11/17/24 11:00 11/19/24 09:56 Amlodipine Besylate 5 Mg Tablet PO 12/17/24 10:59 5 mg QDAY NASREEN Administration Ciprofloxacin 250 mg 11/19/24 17:15 11/20/24 08:32 Ciprofloxacin Hcl 250 Mg Tablet PO 11/26/24 17:14 250 mg QDAY NASREEN Administration Dextrose 25 ml 11/17/24 10:46 Dextrose 50%-Water Inj 50 Ml Syringe IV 12/17/24 10:45 Q15MIN PRN BG 50-70 responsive npo pt Dextrose 50 ml 11/17/24 10:46 Dextrose 50%-Water Inj 50 Ml Syringe IV 12/17/24 10:45 Q15MIN PRN BG <50 OR BG <70 & pt unresponsive Glucagon 1 mg 11/17/24 10:46 Glucagon Inj 1 Mg Vial IM Q15MIN PRN BG <70, and no IV access Heparin Sodium (Porcine) 5,000 unit 11/17/24 11:00 11/20/24 08:32 Heparin Sod Inj 5000 Unit/Ml Vial SC 12/01/24 10:59 5,000 unit Q12HR NASREEN Administration Heparin Sodium (Porcine) 4,100 unit 11/17/24 10:44 11/18/24 15:42 Heparin Sod Inj 1000 Unit/Ml Vial 10 Ml INDWELLCAT 12/01/24 10:43 4,100 unit X1 PRN Administration DIALYSIS Hydromorphone HCl 0.25 mg 11/18/24 11:20 11/20/24 08:40 Hydromorphone Inj 2 Mg/Ml Vial IVP 11/23/24 10:31 0.25 mg Q6H PRN Administration breakthrough pain Insulin Human Lispro 0 unit 11/17/24 11:30 11/20/24 08:16 Insulin Lispro (Admelog) 1 Unit/0.01 Ml Unit SC 12/17/24 11:29 Not Given [facility] Protocol Lidocaine 1 patch 11/18/24 15:50 11/19/24 14:50 Lidocaine 5% 1 Patch TOP 12/18/24 15:49 Not Given DAILY NASREEN Ondansetron HCl 4 mg 11/17/24 10:46 Ondansetron Inj 2 Mg/Ml Inj 2 Ml IVP 12/17/24 10:45 Q6H PRN NAUSEA OR VOMITING Protocol Pantoprazole Sodium 40 mg 11/17/24 11:00 11/20/24 08:31 Pantoprazole Inj 40 Mg Vial IVP 12/17/24 10:59 40 mg QDAY NASREEN Administration Pharmacy Consult 1 each 11/17/24 08:13 Pharmacy Renal Dose Adjustment 1 Ea XX 12/17/24 08:12 PRN PRN CONSULT Silver Sulfadiazine 0 gm 11/18/24 21:00 11/20/24 08:32 Silver Sulfadiazine Cr 1% 25 Gm Tube TOP 11/25/24 20:59 1 applicatio BID NASREEN Administration Plan Plan In summary, Jo Bajwa is 44F with PMHx of renal disease on HD (M/W/F) s/p recent fistula placed on 10/20/2024, DM, HTN, and seizure disorder who presented to the ED on 11/17/2024 c/o of upper back pain across shoulders for 6 days. Pt was found to have 26ml of pericardial effusion, and is being admitted for the work up of pericarditis. #C5-C6 Epidural abscess vs discitis vs osteomyelitis #Intractable upper back pain #Intractable bilateral posterior shoulder pain - MRI cervical spine 11/18: -- limited study due to excessive patient motion degrading scan quality -- Abnormal signal replacing the C5 and C6 vertebral body suspicious for osseous metastatic disease -- Recommend prestudy IV conscious sedation and repeat examination including post intravenous contrast - - MRI cervical spine w contrast: Abnormal enhancement involving the entire C5 and C6 vertebral bodies as well as posterior epidural enhancement measuring up to 4 mm in thickness indenting the ventral margin of the cervical cord, differential would include osteomyelitis, discitis, epidural abscess, as well as less likely osseous metastatic disease, clinical correlation advised - multimdodal pain control - [place] 5/325 PRN - Hydromorphone inj 0.25mg PRN - VANCO, Cefepime, Flagyl #Perciardial Effusion (minimal) #ESRD on HD #volume overload Ddx malignant pericardial effusion, pericarditis, CHF exacerbation -EKG was negative for diffuse ST segment abnormalities. BNP 406, 2+ pitting edema of Rt LE on PE -suggesting volume overload, likely 2/2 volume retention in the context of ESRD and inadequate dialysis. Trop negative, normal EKG. CTA of chest: Mild enlargement cardiac contour Pericardial effusion measuring up to 26 mm No pneumonia or pulmonary edema Negative for pulmonary artery emboli Echo showed small posterior pericardial effusion less than 0.8 cm. ESR 94 and CRP 8.6 (11/19) Plan: - CBC, CMP, Mg, Ca morning draw - Pt at telemetry monitoring - Pt receives HD MWF outpatient with grey goods tester Dr Livingston - per cardiology recs, pt can be on extra ultrafiltration setting during hemodialysis for the removal of excess volume. - Maintain K >4 and Mg >2 - F/U outpatient with hot dog vendor #hyperkalemia K 5.6 11/20 -ordered insulin regular 5u, D50, and albuterol 2.5mg INH x1. -Pt scheduled to receive hemodialysis after MRI w contrast today # GPC bacteremia (resolved) #Asymptomatic bacteriuria Initial blood culture grew GPC, has been on VANCOMYCIN, repeat blood culture negative after 48 hours. Remains afebrile, leukocytosis stable and likely reactive at this point. MRSA screen negative. UA showed trace bacteria, urine culture grew relatively pansensitive low count enteric faecalis, however as she is asymptomatic. ? Discontinued VANCOMYCIN (11/17 to 11/19) ? Continue CIPROFLOXACIN PO 250mg Qday (11/19 to present) #hx of seizures #upper back muscle spasm Pt with a hx of life stressors. Seizures could also be 2/2 electrolyte deragements, eg, hyponatremia, in the setting of ESRD. #T2DM Pt on sliding scale insulin #HTN amlodipine PO 5mg Qday per cardiology, the dose may be increased to 10mg Qday if BP is not controlled adequately. #asthma albuterol 25mg PRN Health maintanance: Diet: Renal PPx GI: PPx DVT: code status:Routine Case was discussed with attending physician, Dr. Nilton Marcus, DO PGY I Attending Provider Attestation/Addendum I attest that I was physically present for the evaluation, physical examination, lab and imaging review of the patient with the residents. I discussed the case with the residents and agree with the findings and plans of care as documented above. At bedside today, patient continues to complain of pain around her back of the neck and shoulder blades. Continues to be on analgesic regimen. WBC count remains high at 13.2. Potassium noted to be 5.6 this morning, repleted temporizing medication regimen Including IV insulin, D50, albuterol inhalation. Patient is planned for follow-up MRI cervical spine after which she will have hemodialysis. Melinda Callaway MD
--- NOTE | 2024-11-20 21:02 | PC.NURSE ---
BP at 167/101. back from HD.Ok per Dr. Stafford to give Amlodipine 5mg dose now, that wasn't given during day shift.
[2024-11-21] VITALS (7 sets, daily range): BP systolic 139–193; BP diastolic 86–111; PULSE 95–99; RESP 14–25; TEMP 36.1–36.4; O2SAT 91–97; BMI 27.9
[2024-11-21] MEDS: HYDROcodone/APAP 5/325 TABLET 1 TAB PO ×2 (01:27→12:21)
[2024-11-21] MEDS: HYDROmorphone INJ 2 MG/ML VIAL 0.25 MG IVP ×2 (02:40→10:41)
[2024-11-21 05:12] LABS: Basophils # (Auto) 0.1 Thou/mm3 (0.0-0.2); Basophils % (Auto) 0 % (0-2.5); Eosinophils # (Auto) 0.2 Thou/mm3 (0.0-0.5); Eosinophils % (Auto) 1 % (0-10); Hematocrit 32.4 % (36.0-46.0); Hemoglobin 9.9 g/dL (12.0-16.0); Immature Granulocytes Auto 0.06 Thou/mm3 (0.00-0.00); Lymphocytes # (Auto) 1.9 Thou/mm3 (1.0-4.8); Lymphocytes % (Auto) 16 % (10-50); Mean Corpuscular HGB Conc 30.6 g/dl (31.0-37.0); Mean Corpuscular Hemoglobin 25.9 pg (25.0-35.0); Mean Corpuscular Volume 85 fL (80-100); Monocytes # (Auto) 0.7 Thou/mm3 (0.0-0.8); Monocytes % (Auto) 6 % (0-12); Neutrophils # (Auto) 8.9 Thou/mm3 (1.8-7.7); Neutrophils % (Auto) 76 % (37-80); Nucleated Red Blood Cell # 0.00 Thou/mm3 (0.00-0.00); Nucleated Red Blood Cell % 0 /100 WBC (0); Platelet Count 399 Thou/mm3 (140-440); RDW Standard Deviation 54.0 fL (36.4-46.3); Red Blood Count 3.82 Miln/mm3 (4.00-5.20); White Blood Count 11.7 Thou/mm3 (3.6-11.0)
[2024-11-21 06:31] LABS: Alanine Aminotransferase < 7 U/L (10-49); Albumin, Serum 3.7 gm/dL (3.5-5.0); Albumin/Globulin Ratio 1.1 (1.2-2.2); Alkaline Phosphatase 106 U/L (46-116); Anion Gap 13 (7-16); Aspartate Amino Transferase 11 U/L (0-34); BUN/Creatinine Ratio 4 Ratio (12-20); Bilirubin,Total 0.4 mg/dL (0.3-1.2); Blood Urea Nitrogen 16 mg/dL (9-23); Calcium 8.6 mg/dL (8.3-10.6); Calcium (Corrected) 8.8 mg/dL (8.5-10.1); Carbon Dioxide 25.8 mMol/L (20.0-31.0); Chloride 100 mMol/L (98-107); Creatinine (Component) 4.1 mg/dL (0.6-1.3); Estimated Creatinine Clearance 15.2 mL/min (>60); Globulin 3.4 gm/dL (2.3-3.5); Glucose 103 mg/dL (74-106); Magnesium 1.6 mg/dL (1.6-2.6); Osmolality,Calculated 278 (275-295); Phosphorous 4.4 mg/dL (2.4-5.1); Potassium 5.0 mMol/L (3.4-5.1); Sodium 139 mMol/L (136-145); Total Protein 7.1 gm/dL (5.7-8.2); eGFR 13 See Note
--- NOTE | 2024-11-21 08:19 | PC.CM ---
Addendum entered by Nehemiah Villatoro RN 11/21/24 13:51: transport for 1600 Addendum entered by Nehemiah Villatoro RN 11/21/24 13:42: onhold with dispatch - trying to set up transport. Addendum entered by Nehemiah Villatoro RN 11/21/24 13:42: 1327: transfer packet w/ 2 CDs taken to Tele floor. Bedside nurse Pam made aware. Please call report to nurse Devi [phone] received call from Nancy hernandez/ [facility] w/ bed information and accepting MD. Room [address] Michelle Woo accepted Addendum entered by Nehemiah Villatoro RN 11/21/24 10:01: 0958: informed Dr. Thomas w/ transfer status. He will work on DC summary. I will update him or the team if/when Hospitalist accepts. Addendum entered by Nehemiah Villatoro RN 11/21/24 09:47: 0945: received call back from Brennen w/ [facility], Dr Ahmadi accepted pt to consult, waiting for Hospitalist to review to accept. Addendum entered by Nehemiah Villatoro RN 11/21/24 09:06: 0904: received call from Brennen with [facility], he stated pt's insurance is accepted and does not need a prior auth. Case will be presented to Neurosurgeon oncall Dr. Ahmadi. Addendum entered by Nehemiah Villatoro RN 11/21/24 09:01: 0900: called [facility], office is closed. Addendum entered by Nehemiah Villatoro RN 11/21/24 08:46: 0833: spoke to Brennen at [facility] to initiate transfer, ins auth needed. Pt has [facility]. Brennen will leave transfer request initiation open until ins auth can be obtained. Case will not be presented until ins auth is obtained. Original Note: 0820: Sent clinicals to [facility] and 0813: Left message at [facility]. 0812: Per Patsy at [facility], they are at capacity but to try later this afternoon if no one else has accepted. 0757: received transfer request for Neuro surgery. Called and spoke to Dr. Thomas to obtain reason for transfer. He stated that the patient shows poss osteo to spine and has back pain. Sent clinicals to [facility]
[2024-11-21 08:21] LABS: C-Reactive Protein 9.4 mg/dL (0.0-0.9)
[2024-11-21 08:40] LABS: Vancomycin,Random 16.3 mcg/mL
[2024-11-21] MEDS: CEFEPIME INJ 1 GM in SODIUM CHLORIDE 0.9% (Popper) 50 ML IV (09:21)
[2024-11-21] MEDS: HEPARIN SOD INJ 5000 UNIT/ML VIAL SC (09:22)
--- NOTE | 2024-11-21 10:00 | ESDS_ITS ---
Planned Discharge Date 11/21/24 DS: Providers Provider Date of admission: 11/17/24 07:56 Primary care physician: Khadijah Veronica PA-C Admitting Provider: Ren Whitten MD Attending Provider on Admission: Melinda Callaway MD Consults: 11/17/24 05:47 Consult to Cardiology Stat Comment: Consulting Provider: Cody Andrade Instructions: Pericardial effusion 11/17/24 05:50 Consult to Nephrology Stat Comment: ESRD Consulting Provider: Bala Livingston 11/18/24 10:15 Referral Wound Care Routine Comment: 11/18/24 11:50 Referral OP Wound Healing Dept Routine Comment: Instructions: Right great toe DM ulcer, left medial upper arm surgical incision Attending Provider on DC: Melinda Callaway MD Discharging Provider: Melinda Callaway MD DS: Diagnosis Problem List Completed Was Problem List Reviewed/Reconciled?: Yes Hospital Course Hospital Course Hospital course: Jo Espino?flakita is a 44-year-old female with a past medical history of end-stage renal disease (ESRD) on hemodialysis (M/W/F), type 2 diabetes mellitus, hypertension, documented hx of seizure disorder (not medicated), and asthma, who presented to the emergency department on November 17, 2024, with a 6-day history of intractable upper back pain radiating across the shoulders. She is status post recent left AV fistula placement on October 20, 2024. Initial evaluation revealed a moderate pericardial effusion (26 mm), and she was admitted for further workup of suspected pericarditis versus volume overload related to ESRD. EKG showed no ischemic changes, troponin was negative, and BNP was elevated at 406. Physical exam revealed 2+ right lower extremity edema. Echocardiogram confirmed a small posterior pericardial effusion (<0.8 cm). The volume overload was attributed to suboptimal dialysis, and cardiology recommended increased ultrafiltration during outpatient sessions. Given the severity of her upper back pain, cervical spine MRI was performed. The initial study was limited due to motion artifact, but repeat MRI with contrast demonstrated abnormal enhancement and signal changes of the C5-C6 vertebral bodies with posterior epidural enhancement (up to 4 mm) indenting the ventral spinal cord. Differential diagnosis includes discitis, osteomyelitis, epidural abscess, and less likely metastatic disease. Neurosurgical evaluation is warranted. ESR 120 and CRP 9.4. Initial blood cultures grew gram-positive cocci; the patient was started on ABX (see below). Repeat blood cultures drawn 48 hours after initial positivity remained negative, and she remained afebrile with stable leukocytosis, likely reactive. MRSA screen was negative. UA showed asymptomatic bacteriuria with enterococcus faecalis; no further antibiotic therapy was required. Her pain was managed with multimodal analgesia, including [place] and IV hydromorphone. She experienced a brief episode of hyperkalemia (K+ 5.6 on 11/20), managed with insulin, D50, and albuterol, followed by scheduled hemodialysis. Her seizure disorder remained stable throughout admission. Blood pressure control was adequate on amlodipine 5 mg daily, with instructions to increase to 10 mg as needed. At the time of transfer, the patient is hemodynamically stable, afebrile, and pain is improved. She is being transferred to [facility] in [place] for higher-level neurosurgical evaluation and management. She is to follow up with cardiology, nephrology, and neurosurgery post-transfer. Antibiotics: IV VANCOMYCIN 11/17 - 11/19 IV CEFTRIAXONE 11/17 - 11/17 IV METRONIDAZOLE 11/21 - current IV CEFEPIME 11/21 - current Case was discussed with attending physician. Kitty Thomas DO PGY II This document was transcribed using voice recognition technology. Minor inaccuracies may be present. Time Spent with Patient Time attestation: Total time spent providing and/or coordinating discharge services: 39 min Time spent: Greater than 30 minutes Exam Vital Signs Temp Pulse Resp BP Pulse Ox O2 Del Method 96.9 F 99 17 175/96 H 97 Room Air 11/21/24 08:00 11/21/24 09:22 11/21/24 08:00 11/21/24 09:22 11/21/24 08:00 11/21/24 08:00 Narrative Exam General: Alert and oriented x3, No apparent distress. Skin: Intact, Warm, no rashes. HEENT: Normocephalic, Atraumatic. Normal neck range of motion, Supple. Trachea midline. Respiratory: Lungs are clear to auscultation, Breath sounds are equal bilaterally with equal chest expansion. Cardiovascular: RRR, normal S1, S2, No murmurs. Distal pulses 2+ Abdomen: Abdomen soft, non-distended, without erythema, or lesions. Normotensive bowel sounds x4. Percussion tympanic. Palpation nontender in all four quadrants. No organomagely. No guarding or rebound present. Extremities: Lt below knee amputation. Site of incision for dialysis fistula on the left arm medial side. Severe Periscapular, pericervical tenderness to palpation, there is palpable cervical perispinal swelling (unable to characterize 2/2 pain). Sensation and motor intact in kayla LE and UE. Musculoskeletal: No swelling, moving all 4 extremities with FROM Neurologic: Alert, Oriented, No focal deficits. Moving all 4 extremities spontaneously Psych: Thoughts linear and responses appropriate Discharge Plan Plan Patient Disposition: Xfer Other Facility Pt Being Transferred to: [facility] Service Needed for Transfer: Neurosurgery Patient condition on transfer: Stable Care Plan Goals: * Follow up with Dr. Steiner as scheduled for left arm fistula * Follow up at [facility], [address] [place] [address]. Call [phone] for appointment to follow right foot and left arm wounds. * Continue management of chronic problems at accepting facility, including glycemic control, HD, HTN, and pain control. * Wound care: * Callous to right foot: keep site clean and dry. Cover with gauze or foam dressing when ambulating * Surgical incision to left upper arm: cleanse with wound cleanser, pat dry, apply silvadene cream and cover with dressing twice a day and as needed for falling off Prescriptions/Referrals Prescriptions/Med Rec: Continued cyclobenzaprine 10 mg tablet 10 mg PO HS PRN (Reason: muscle spasm) Qty: 10 0RF (DME) nebulizer and compressor Device See Rx Instructions .Route Qty: 1 0RF Rx Instructions: As directed amlodipine 5 mg tablet 5 mg PO DAILY Patient Comments: TAKE 1 TABLET BY MOUTH DAILY FOR BLOOD PRESSURE insulin glargine [Basaglar KwikPen U-100 Insulin] 100 unit/mL (3 mL) insulin pen 25 unit subcut QAM Qty: 15 0RF (DME) pen needle, diabetic [1st Tier Unifine Pentips] 32 gauge x 5/32 needle See Rx Instructions .Route Qty: 100 0RF Rx Instructions: As directed tramadol 50 mg tablet 50 mg PO Q6H PRN (Reason: pain) Patient Comments: TAKE 1 TABLET BY MOUTH EVERY 6 TO 8 HOURS NEEDED FOR PAIN FOR 10 DAYS silver sulfadiazine 1 % cream 1 applic TOPICAL DAILY Patient Comments: 1 APPLICATION TOPICALLY TO OPEN BLISTERS TWICE A DAY 30 DAYS sevelamer carbonate 2.4 gram powder in packet 2.4 g PO TID Patient Comments: TAKE 1 PACKET BY MOUTH 3 TIMES A DAY Referrals: Khadijah Veronica PA-C [Primary Care Provider] - Patient/Caregiver Discharge Instructions Education Materials: Nutrition for Wound Healing, Wound Care Dc, Preventing Surgical Site Infections Print Language: German Stand Alone Forms: Hannah Award Info., Patient Portal Info Letter Quality Discharge Quality Measures VTE prophylaxis MD Attestestation MD Attestation I attest that I was physically present for the evaluation, physical examination, lab and imaging review of the patient with the residents. I discussed the case with the residents and agree with the findings and plans of care as documented above. At bedside today, patient appears comfortable, states that she still has pain around her back but controlled with analgesics. Vital signs are stable except for mild hypertension. Lab results show WBC of 11.7, her WBC appears to be chronically elevated. Hemoglobin is stable. Had potassium of 5.0 this morning, noted to have elevated ESR and CRP. Patient was able to complete her cervical spine MRI yesterday which showed abnormal enhancement involving the entire C5 and C6 vertebral bodies as well as posterior epidural enhancement measuring up to 4 mm in thickness indenting the ventral margin of the cervical cord, with differentials of osteomyelitis, discitis, epidural abscess, osseous metastatic disease. Patient will need higher level of care for evaluation by neurosurgery. Melinda Callaway MD
[2024-11-21] MEDS: metroNIDAZOLE/NS 500 MG IVPB 500 MG/100 ML BAG 200 MG IV (10:03)
[2024-11-21 10:10] LABS: Sed Rate (ESR) 120 mm/hr (0-20)
[2024-11-21] MEDS: Magnesium Sulfate 2 GM Ivpb 2 GM/50 ML BAG IV (10:36)
[2024-11-21] MEDS: SILVER SULFADIAZINE CR 1% 25 GM TUBE TOP (10:53)
[2024-11-21] MEDS: INSULIN LISPRO (AdmeLOG) 1 UNIT/0.01 ML UNIT SC (11:34)
--- NOTE | 2024-11-21 15:25 | PC.NURSE ---
Report given to Devi Zhao RN
[2024-11-21 15:52] LABS: Albumin, Serum 3.4 gm/dL (3.5-5.0); Anion Gap 8 (7-16); BUN/Creatinine Ratio 4 Ratio (12-20); Blood Urea Nitrogen 19 mg/dL (9-23); Calcium 8.4 mg/dL (8.3-10.6); Calcium (Corrected) 8.9 mg/dL (8.5-10.1); Carbon Dioxide 27.7 mMol/L (20.0-31.0); Chloride 99 mMol/L (98-107); Creatinine (Component) 4.8 mg/dL (0.6-1.3); Estimated Creatinine Clearance 13.0 mL/min (>60); Glucose 207 mg/dL (74-106); Osmolality,Calculated 278 (275-295); Phosphorous 4.4 mg/dL (2.4-5.1); Potassium 5.6 mMol/L (3.4-5.1); Sodium 135 mMol/L (136-145); eGFR 11 See Note
== END 2024-11-21 16:10 | disposition short-term general hospital, planned readmission (82) | DRG 207 ==
LOC: SERX 05:53 → SERHOLD 08:06 → S2NX 18:19
PROVIDERS: Admitting Provider Internal Medicine; Emergency Provider Emergency Medicine; PCP Physician Assistant; Visit Provider Student in an Organized Health Care Education/Training Program
DX: I31.39 Other pericardial effusion (noninflammatory) (principal); I13.2 Hypertensive heart and chronic kidney disease with heart failure and with stage 5 chronic kidney disease, or end stage renal disease; E11.22 Type 2 diabetes mellitus with diabetic chronic kidney disease; N18.6 End stage renal disease; F17.200 Nicotine dependence, unspecified, uncomplicated; N39.0 Urinary tract infection, site not specified; B95.2 Enterococcus as the cause of diseases classified elsewhere; E11.649 Type 2 diabetes mellitus with hypoglycemia without coma; E87.5 Hyperkalemia; G40.909 Epilepsy, unspecified, not intractable, without status epilepticus; I50.9 Heart failure, unspecified; Z89.512 Acquired absence of left leg below knee; J45.909 Unspecified asthma, uncomplicated; Z99.2 Dependence on renal dialysis
CPT/HCPCS: 36415; 71275; 72141; 72156; 80048; 80053; 80061; 80069; 80202; 81001; 81025; 83036; 83735; 83880; 84100; 84443; 84484; 85025; 85379; 85610; 85652; 85730; 86140; 87040; 87077; 87081; 87086; 87186; 87400; 87811; 93005; 93306; 94640; 96365; 96366; 96375; 96376; A4649; A9579; J0612; J0692; J0696; J1171; J1643; J1644; J1815; J2060; J2405; J2470; J3370; J3373; J3475; J3490; J7050; Q9967; A9270; J1836

== ENCOUNTER 2024-11-27 18:10 | Inpatient (IN) | payer MEDICAID, SELFPAY ==
[2024-11-27 19:00] VITALS: BMI 27.2
--- NOTE | 2024-11-27 19:53 | PD.RESHP ---
Documentation for date of: 11/27/24 HPI History of Present Illness Chief complaint: Back pain History of present illness: 43-year-old female with past medical history of ESRD on HD (M/W/F), AV fistula placed on 10/20/2024, history of seizures (not on any antiseizure medications), hypertension transferred back to [facility] from [facility] on 11/27. Of note, patient presented to [facility] initially presented on 11/17 with chief complaint of upper back pain. During workup, patient was noted to have a new pericardial effusion but due to the severity of her upper back pain a cervical spine MRI was completed and showed abnormal signal changes at the C5-C6 vertebral bodies with posterior epidural enhancement. As result, patient was transferred to [facility] for neurosurgery consultation. At [facility], Dr. Ahmadi (neurosurgeon) assessed the patient and recommended repeat MRI in about 3 weeks. Patient was started on long-term IV antibiotics including 2 g of Rocephin and vancomycin and will continue this regiment with dialysis sessions. Patient currently states that she feels much better than when she first presented and denies having any concerning symptoms at this time. Past medical history: As stated above Past surgical history: Left BKA, cholecystectomy, fistula creation for dialysis left AV fistula Allergies: Amoxicillin clavulanic acid causes swelling of the tongue Medications: Pending med rec Family history: Mother had kidney disease, father is living history of chronic asthma Social history: Denies alcohol, tobacco use; remote methamphetamine use. Does not work currently, disable ROS: All 12 systems assessed and the patient denies unless otherwise stated in HPI. Patient will be readmitted for continued IV antibiotic treatment and safe discharge with the plan for continued dialysis pending nephrology approval. Exam Narrative Exam Physical Exam: GENERAL: Awake, answering questions appropriately, appears stated age HEENT: NC/AT. Moist mucosa. PERRLA/EOMI. Right eye blind. CARDIO: Heart RRR, no obvious murmurs, no JVD. PULM: No coughing or visible SOB. Lungs CTA B/L. GI: Abdomen soft, NT/ND, +BS. SKIN/MSK/EXT: Right midline catheter. Left AV fistula patent with thrill. Left BKA. No tenderness noted along the spine. No wounds/discoloration/rashes/edema. +Pedal pulses present B/L. NEURO: Oriented x3, Moves extremities x3, no focal neurologic deficits noted Results: Labs 11/27/24 20:10 11/27/24 20:10 Quality Measures Quality Measures VTE prophylaxis Medications Home Medications and Allergies Home Medications ?Medication ?Instructions ?Recorded ?Confirmed ?Type amlodipine 5 mg tablet 10 mg PO DAILY 05/18/24 11/27/24 History sevelamer carbonate 2.4 gram oral 2.4 g PO TID 11/17/24 11/27/24 History powder packet silver sulfadiazine 1 % topical 1 applic topical BID 11/17/24 11/27/24 History cream tramadol 50 mg tablet 50 mg PO Q6H PRN pain 11/17/24 11/27/24 History albuterol sulfate 90 mcg/actuation 2 puff inhalation .4-6 hours PRN 11/27/24 11/27/24 History aerosol inhaler shortness of breath or wheezing cyclobenzaprine 10 mg tablet 10 mg PO DAILY PRN muscle spasm 11/27/24 11/27/24 History hydrocodone 5 mg-acetaminophen 325 1 tab PO Q6H PRN pain 11/27/24 11/27/24 History mg tablet hydrocodone 5 mg-acetaminophen 325 1 tab PO TID PRN pain 11/27/24 11/27/24 History mg tablet insulin glargine 100 unit/mL (3 38 unit subcut QAM 11/27/24 11/27/24 History mL) subcutaneous pen (Basaglar KwikPen U-100 Insulin) insulin regular human 100 unit/mL 1 sliding scale dose subcut TIDWM 11/27/24 11/27/24 History injection solution (Novolin R Regular U-100 Insulin) ondansetron 4 mg disintegrating 4 mg PO Q8H PRN nausea and vomiting 11/27/24 11/27/24 History tablet Allergies Allergy/AdvReac Type Severity Reaction Status Date / Time amoxicillin (From Augmentin) Allergy Severe Swelling Verified 11/17/24 01:47 of Lip/Tongue/Throat clavulanic acid (From Allergy Severe Swelling Verified 11/17/24 01:47 Augmentin) of Lip/Tongue/Throat Visit Medications Acetaminophen (Acetaminophen 325 Mg Tablet) 650 mg PO Q6H PRN PRN Reason: Pain 1-3 and/or Fever >100.1 Stop: 12/27/24 19:45 Hydrocodone Bitart/Acetaminophen (Hydrocodone/Apap 5/325 Tablet) 1 tab PO TID PRN PRN Reason: pain Stop: 12/02/24 19:50 Albuterol (Albuterol Inh 8 Gm) 2 puff INH .4-6 hours PRN PRN Reason: shortness of breath or wheezing Stop: 12/27/24 19:50 Amlodipine Besylate (Amlodipine Besylate 5 Mg Tablet) 10 mg PO DAILY NASREEN Stop: 12/28/24 08:59 Dextrose (Dextrose 50%-Water Inj 50 Ml Syringe) 25 ml IV Q15MIN PRN PRN Reason: BG 50-70 responsive npo pt Stop: 12/27/24 19:51 Dextrose (Dextrose 50%-Water Inj 50 Ml Syringe) 50 ml IV Q15MIN PRN PRN Reason: BG <50 OR BG <70 & pt unresponsive Stop: 12/27/24 19:51 Glucagon (Glucagon Inj 1 Mg Vial) 1 mg IM Q15MIN PRN PRN Reason: BG <70, and no IV access Ceftriaxone Sodium 2 gm/ (Sodium Chloride) 50 mls @ 100 mls/hr IV QDAY [facility] Stop: 12/04/24 19:48 Insulin Human Lispro (Insulin Lispro (Admelog) 1 Unit/0.01 Ml Unit) 0 unit [facility]; Protocol Stop: 12/27/24 20:59 Non-Formulary Medication (Cyclobenzaprine) 10 mg PO DAILY PRN PRN Reason: muscle spasm Non-Formulary Medication (Sevelamer Carbonate) 2.4 gm PO TID [facility] Stop: 12/27/24 21:59 Ondansetron HCl (Ondansetron Inj 2 Mg/Ml Inj 2 Ml) 4 mg IVP Q6H PRN; Protocol PRN Reason: NAUSEA OR VOMITING Stop: 12/27/24 19:45 Ondansetron HCl (Ondansetron Odt 4 Mg Tabrap) 4 mg PO Q8H PRN; Protocol PRN Reason: nausea and vomiting Stop: 12/27/24 19:50 Pharmacy Consult (Vancomycin Pharmacy To Dose 1 Each Each) 1 each IV QDAY [facility] Stop: 12/28/24 08:59 Sennosides (Senna Tablet) 1 tab PO QDAY PRN; Protocol PRN Reason: constipation Stop: 12/27/24 19:45 Tramadol HCl (Tramadol Hcl 50 Mg Tablet) 50 mg PO Q6H PRN PRN Reason: pain Stop: 12/02/24 19:50 Assessment & Plan Plan 43-year-old female with past medical history of ESRD on HD (M/W/F), AV fistula placed on 10/20/2024, history of seizures (not on any antiseizure medications), hypertension transferred back to [facility] from [facility] on 11/27 will be readmitted for continued IV antibiotic treatment and safe discharge with the plan for continued dialysis pending nephrology approval. #C5-C6 discitis, abscess #GPC bacteremia As noted above, patient had MRI findings concerning for C5-C6 discitis versus abscess versus osteomyelitis Was transferred to [facility] for neurosurgery consultation No biopsy was taken of the abscess due to the location As per note from [facility], recommendations to continue IV antibiotics for 6 weeks during dialysis (patient states that there is a plan to transition to p.o. antibiotics) Plan: Continue IV Rocephin 2 g daily along with IV vancomycin, pharmacy to dose Repeat MRI in 3 weeks as per neurosurgery recommendations Multimodal pain management, restarted home medications for pain control #ESRD on HD Patient apparently has dialysis at [facility], laundry aid Dr. Livingston (Friday/Friday/Friday) Has a left AV fistula with thrill on examination, patent Plan: Nephrology consulted, appreciate recommendations Continue dialysis schedule along with antibiotics Monitor electrolytes and #Small pericardial effusion Likely secondary to ESRD, uremia versus possible viral infection; unlikely cardiac etiology as per cardiology consult TTE revealed mild pericardial effusion of 8 mm, with elevated RVSP and inferior vena cava greater than 2 cm suggestive of volume overload Cardiology was consulted on last admission and recommended continuing dialysis No evidence of tamponade Plan: Continue to monitor for any acute changes #Insulin-dependent type 2 diabetes Last A1c of 6.2 on 11/18 Patient on home insulin Plan: Sliding scale insulin #Hypertension Patient on home amlodipine 10 mg p.o. daily Plan: Continue home medications #History of seizures Noted on chart patient not on antiseizure medication Plan: Seizure precautions PRN IV Ativan for breakthrough Health Maintenance: Lines: PIV, right midline catheter, left AV fistula Diet: Renal Bowel: Senna as needed GI prophylaxis: Not needed DVT prophylaxis: SCD Dispo: Pending placement and dialysis schedule Code: Full Patient seen and assessed with attending Dr. Nilton Stafford DO PGY-2 Internal Medicine - GME Attending Provider Attestation/Addendum I attest that I was physically present for the evaluation, physical examination, lab and imaging review of the patient with the residents. I discussed the case with the residents and agree with the findings and plans of care as documented above. After examination of the patient and review of the clinical data I feel that this patient needs admission to the hospital for further treatment/evaluation. Patient is a 43 years old female with past medical history of ESRD on hemodialysis, history of seizures, hypertension who was recently admitted for management of back/neck pain. Imaging revealed possible discitis/abscess/mass around C5-C6 vertebral bodies. She was then transferred to [facility] for neurosurgery evaluation. Patient is transferred back today after being assessed by neurosurgery, who recommended follow-up MRI in about 3 weeks and continuation of long-term migraine antibiotics, Rocephin 2 g and vancomycin with dialysis sessions. No surgical interventions were done. At bedside, patient states her pain has been improved significantly. Denies any new complaints, fever or chills. Vitals are stable except for mild hypertension. Noted to have WBC of 16.2, platelets 488. Chemistry panel shows sodium of 130, chloride 96, BUN/creatinine 34/6.3, phosphorus 7. We will admit the patient for further management and safe discharge planning. We will continue with IV Rocephin and vancomycin for GPC bacteremia and C5-C6 discitis/sepsis. We will obtain nephrology consult for continuation of hemodialysis and antibiotics scheduled on discharge. We will continue with home antihypertensive. We will start insulin regimen for diabetes. Melinda Callaway MD
[2024-11-27 20:00] VITALS: BP 139/84; PULSE 85; PULSE 91; RESP 15; TEMP 36.4; O2SAT 99
[2024-11-27 20:57] LABS: Basophils # (Auto) 0.1 Thou/mm3 (0.0-0.2); Basophils % (Auto) 1 % (0-2.5); Eosinophils # (Auto) 0.1 Thou/mm3 (0.0-0.5); Eosinophils % (Auto) 1 % (0-10); Hematocrit 40.3 % (36.0-46.0); Hemoglobin 12.6 g/dL (12.0-16.0); Immature Granulocytes Auto 0.10 Thou/mm3 (0.00-0.00); Lymphocytes # (Auto) 1.8 Thou/mm3 (1.0-4.8); Lymphocytes % (Auto) 11 % (10-50); Mean Corpuscular HGB Conc 31.3 g/dl (31.0-37.0); Mean Corpuscular Hemoglobin 25.5 pg (25.0-35.0); Mean Corpuscular Volume 82 fL (80-100); Monocytes # (Auto) 1.3 Thou/mm3 (0.0-0.8); Monocytes % (Auto) 8 % (0-12); Neutrophils # (Auto) 12.8 Thou/mm3 (1.8-7.7); Neutrophils % (Auto) 79 % (37-80); Nucleated Red Blood Cell # 0.00 Thou/mm3 (0.00-0.00); Nucleated Red Blood Cell % 0 /100 WBC (0); Platelet Count 488 Thou/mm3 (140-440); RDW Standard Deviation 50.0 fL (36.4-46.3); Red Blood Count 4.94 Miln/mm3 (4.00-5.20); White Blood Count 16.2 Thou/mm3 (3.6-11.0)
[2024-11-27 21:26] LABS: Alanine Aminotransferase < 7 U/L (10-49); Albumin, Serum 4.4 gm/dL (3.5-5.0); Albumin/Globulin Ratio 1.1 (1.2-2.2); Alkaline Phosphatase 155 U/L (46-116); Anion Gap 16 (7-16); Aspartate Amino Transferase 13 U/L (0-34); BUN/Creatinine Ratio 5 Ratio (12-20); Bilirubin,Total 0.3 mg/dL (0.3-1.2); Blood Urea Nitrogen 34 mg/dL (9-23); Calcium 9.9 mg/dL (8.3-10.6); Calcium (Corrected) 9.9 mg/dL (8.5-10.1); Carbon Dioxide 17.6 mMol/L (20.0-31.0); Chloride 96 mMol/L (98-107); Creatinine (Component) 6.3 mg/dL (0.6-1.3); Globulin 4.0 gm/dL (2.3-3.5); Glucose 183 mg/dL (74-106); Magnesium 2.0 mg/dL (1.6-2.6); Osmolality,Calculated 273 (275-295); Phosphorous 7.0 mg/dL (2.4-5.1); Potassium 4.3 mMol/L (3.4-5.1); Sodium 130 mMol/L (136-145); Total Protein 8.4 gm/dL (5.7-8.2); eGFR 8 See Note
[2024-11-27] MEDS: INSULIN LISPRO (AdmeLOG) 1 UNIT/0.01 ML UNIT SC (21:38)
[2024-11-27] MEDS: HYDROcodone/APAP 5/325 TABLET 1 TAB PO (21:39)
[2024-11-28] VITALS (13 sets, daily range): BP systolic 135–170; BP diastolic 59–88; PULSE 79–96; RESP 12–98; TEMP 36.1–37.2; O2SAT 96–100; BMI 27.2
[2024-11-28] MEDS: ZOLPIDEM 5 MG TABLET PO ×2 (00:11→18:20)
[2024-11-28 05:56] LABS: Basophils # (Auto) 0.1 Thou/mm3 (0.0-0.2); Basophils % (Auto) 1 % (0-2.5); Eosinophils # (Auto) 0.2 Thou/mm3 (0.0-0.5); Eosinophils % (Auto) 1 % (0-10); Hematocrit 36.4 % (36.0-46.0); Hemoglobin 11.3 g/dL (12.0-16.0); Immature Granulocytes Auto 0.08 Thou/mm3 (0.00-0.00); Lymphocytes # (Auto) 2.4 Thou/mm3 (1.0-4.8); Lymphocytes % (Auto) 18 % (10-50); Mean Corpuscular HGB Conc 31.0 g/dl (31.0-37.0); Mean Corpuscular Hemoglobin 25.7 pg (25.0-35.0); Mean Corpuscular Volume 83 fL (80-100); Monocytes # (Auto) 1.2 Thou/mm3 (0.0-0.8); Monocytes % (Auto) 9 % (0-12); Neutrophils # (Auto) 9.7 Thou/mm3 (1.8-7.7); Neutrophils % (Auto) 71 % (37-80); Nucleated Red Blood Cell # 0.00 Thou/mm3 (0.00-0.00); Nucleated Red Blood Cell % 0 /100 WBC (0); Platelet Count 339 Thou/mm3 (140-440); RDW Standard Deviation 51.3 fL (36.4-46.3); Red Blood Count 4.39 Miln/mm3 (4.00-5.20); White Blood Count 13.6 Thou/mm3 (3.6-11.0)
[2024-11-28] MEDS: HYDROcodone/APAP 5/325 TABLET 1 TAB PO ×2 (06:12→23:27)
[2024-11-28 06:56] LABS: Alanine Aminotransferase < 7 U/L (10-49); Albumin, Serum 3.7 gm/dL (3.5-5.0); Albumin/Globulin Ratio 1.0 (1.2-2.2); Alkaline Phosphatase 144 U/L (46-116); Anion Gap 19 (7-16); Aspartate Amino Transferase 18 U/L (0-34); BUN/Creatinine Ratio 5 Ratio (12-20); Bilirubin,Total < 0.2 mg/dL (0.3-1.2); Blood Urea Nitrogen 38 mg/dL (9-23); Calcium 9.0 mg/dL (8.3-10.6); Calcium (Corrected) 9.2 mg/dL (8.5-10.1); Carbon Dioxide 16.7 mMol/L (20.0-31.0); Chloride 98 mMol/L (98-107); Creatinine (Component) 7.2 mg/dL (0.6-1.3); Estimated Creatinine Clearance 8.5 mL/min (>60); Globulin 3.8 gm/dL (2.3-3.5); Glucose 95 mg/dL (74-106); Osmolality,Calculated 277 (275-295); Potassium 4.8 mMol/L (3.4-5.1); Sodium 134 mMol/L (136-145); Total Protein 7.5 gm/dL (5.7-8.2); eGFR 7 See Note
[2024-11-28 07:34] LABS: Vancomycin,Random 22.6 mcg/mL
[2024-11-28] MEDS: SEVELAMER CARBONATE 800 MG TABLET 2400 MG PO ×2 (07:35→11:35)
[2024-11-28] MEDS: cefTRIAXone/D5w 2gm 2 GM/50 ML BAG IV (09:45)
--- NOTE | 2024-11-28 11:23 | PC.SS ---
Addendum entered by Dori Davenport 11/28/24 13:36: Patient reported receiving Dialysis from [facility], Mondays, Wednesdays, and Fridays 1:30PM. Original Note: Patient is a 44YO female, reason visit: DISCITIS, GPC BACTEREMIA. Initial assessment completed at bedside with patient. Role and purpose of today?s contact explained to patient. Patient confirmed her demographic information. She stated her primary medical surrogate decision maker is her sibling Gisella Jimenes [phone]. Patient stated she requires assistance with ADL completion. Her son Jack Bajwa is her IHSS provider and assists patient with ADLs. Patient is unable to recall IHSS hour amount. Patient reports utilizing wheelchair for ambulation. Pharmacy: [facility]. PCP: Khadijah Veronica, last appt. was 11/18/24. Discharge plan: Home, family to transport. Next of kin: Sibling Gisella Jimenes [phone]
[2024-11-28] MEDS: INSULIN LISPRO (AdmeLOG) 1 UNIT/0.01 ML UNIT SC ×3 (11:35→21:24)
[2024-11-28] MEDS: ONDANSETRON ODT 4 MG TABRAP PO (11:44)
--- NOTE | 2024-11-28 12:19 | PC.SS ---
Addendum entered by Jesenia Vickers 11/28/24 15:43: Assigned RN called and asked if Home Health was arranged for pt. However, after speaking with Transfer RN, the referral for Home Health was submitted about 30 minutes prior to this entry and because of that, home health cannot be approved until possibly tomorrow. Assigned RN asked if ASW could tell the pt that she will not be d/c today, as she will be upset. ASW informed pt that she will not be d/c today and she was emotional but understood. Reason why pt cannot be d/c today is because Home Health needs to set up prior to d/c. Home Health will need a prior AUTH and all needs to be in place prior to d/c. Addendum entered by Jesenia Vickers 11/28/24 12:23: Pt needs Home Health arranged as well as dialysis. Pt will need IV antibiotics during dialysis. Original Note: Per , pt will d/c home, but will need IV antibiotics and Home Health.
--- NOTE | 2024-11-28 13:05 | PD.RESDS ---
Planned Discharge Date 11/28/24 DS: Providers Provider Date of admission: 11/27/24 18:10 Primary care physician: Melinda Callaway MD Admitting Provider: Melinda Callaway MD Attending Provider on Admission: Melinda Callaway MD Consults: 11/27/24 19:50 Consult to Nephrology Routine Comment: Consulting Provider: Bala Livingston 11/27/24 23:00 Referral Nutritional Services Routine Comment: Instructions: pt returned to [facility], wound left arm, right arm, and right plantar foot callus. Referral Wound Care Routine Comment: Instructions: pt returned to [facility], wound left arm, right arm, and right plantar foot callus. 11/28/24 04:35 Referral Infection Control Routine Comment: Reason for Infection Control Referral: Readmitted within 30 days Multiple ABX (>2) Current Dialysis Patient TB, MENGI, HEP, MRSA,CDIF 11/28/24 12:42 Consult to Nephrology Routine Comment: HD MWF with Dr Livingston, last session Friday Consulting Provider: Sandrine Landin Instructions: Epidural abscess - needs daily VANC/CTX Attending Provider on DC: Vadim Chan DO Discharging Provider: Vadim Chan DO DS: Diagnosis Problem List Completed Was Problem List Reviewed/Reconciled?: Yes Hospital Course Hospital Course Hospital course: Jo Bajwa is a 43-year-old female with a medical history significant for end-stage renal disease (ESRD) on hemodialysis (Friday/Friday/Friday schedule), with an arteriovenous (AV) fistula placed on 10/20/2024, seizures (not currently on anti-seizure medications) and hypertension who was transferred back to [facility] from [facility] on 11/27. The patient initially presented to [facility] on 11/17 with a chief complaint of upper back pain. A cervical spine MRI revealed abnormal signal changes at the C5-C6 vertebral bodies with posterior epidural enhancement. Due to these findings, she was transferred to [facility] for neurosurgical evaluation. At [facility], she was assessed by neurosurgeon Dr. Ahmadi, who recommended a repeat MRI in approximately three weeks. The patient was started on a course of long-term IV antibiotics, including 2 g of Rocephin and vancomycin, which she will continue in conjunction with her dialysis treatments. At the time of discharge, the patient is medically stable and deemed safe to return to her prior living situation. Admission Diagnoses: #C5-C6 discitis, abscess #GPC bacteremia #ESRD on HD #Small pericardial effusion #Insulin-dependent type 2 diabetes #Hypertension #History of seizures Discharge Diagnoses: Follow-up with PCP within 1-2 weeks of discharge. Recommended repeat MR cervical spine in 3 weeks (from 11/28/24). Continue CEFTRIAXONE and VANCOMYCIN with HD until 12/29/24 (total 6 weeks). Continue taking medications as prescribed below. Return to Emergency Room if symptoms persist, worsen, or new symptoms develop. This case was discussed with my attending physician, Dr. Chan. Nael Marcus, PGY I Time Spent with Patient Time attestation: Total time spent providing and/or coordinating discharge services: Time spent: Greater than 30 minutes Exam Vital Signs Temp Pulse Resp BP Pulse Ox O2 Del Method 98.9 F 82 15 135/78 H 97 Room Air 11/28/24 11:49 11/28/24 11:49 11/28/24 11:49 11/28/24 11:49 11/28/24 11:49 11/28/24 11:49 Narrative Exam GENERAL: Awake, answering questions appropriately, appears stated age HEENT: NC/AT. Moist mucosa. PERRLA/EOMI. Right eye blind. CARDIO: Heart RRR, no obvious murmurs, no JVD. PULM: No coughing or visible SOB. Lungs CTA B/L. GI: Abdomen soft, NT/ND, +BS. SKIN/MSK/EXT: Right midline catheter. Left AV fistula patent with thrill. Left BKA. No tenderness noted along the spine. No wounds/discoloration/rashes/edema. +Pedal pulses present B/L. NEURO: Oriented x3, Moves extremities x3, no focal neurologic deficits noted Discharge Plan Plan Patient Disposition: Home w/HOME HEALTH Disposition Comment: Okay to use midline for antibiotics Patient condition on transfer: Stable Health Concerns: Okay to use midline for antibiotics Care Plan Goals: Follow-up with PCP within 1-2 weeks of discharge. Recommended repeat MR cervical spine in 3 weeks (from 11/28/24). Continue CEFTRIAXONE and VANCOMYCIN with HD until 8/28/25 (total 6 weeks). Continue taking medications as prescribed below. Return to Emergency Room if symptoms persist, worsen, or new symptoms develop. Prescriptions/Referrals Prescriptions/Med Rec: Continued amlodipine 5 mg tablet 10 mg PO DAILY Patient Comments: TAKE 1 TABLET BY MOUTH DAILY FOR BLOOD PRESSURE hydrocodone-acetaminophen 5-325 mg tablet 1 tab PO TID PRN (Reason: pain) Patient Comments: TAKE 1 TABLET BY MOUTH 3 TIMES A DAY NEEDED FOR PAIN ondansetron 4 mg tablet,disintegrating 4 mg PO Q8H PRN (Reason: nausea and vomiting) Patient Comments: DISSOLVE 1 TABLET ON TONGUE EVERY 8 HOURS NEEDED FOR NAUSEA AND VOMITING Rx Instructions: sublingual cyclobenzaprine 10 mg tablet 10 mg PO DAILY PRN (Reason: muscle spasm) insulin glargine [Basaglar KwikPen U-100 Insulin] 100 unit/mL (3 mL) insulin pen 38 unit subcut QAM Novolin R Regular U100 Insulin 100 unit/mL solution 1 sliding scale dose subcut TIDWM Patient Comments: USE UP TO 30 UNITS MAX/ DAY PER SLIDING SCALE 3 TIMES A DAY albuterol sulfate 90 mcg/actuation HFA aerosol inhaler 2 puff INHALATION .4-6 hours PRN (Reason: shortness of breath or wheezing) Patient Comments: USE ONE TO TWO INHALATIONS BY MOUTH EVERY 4-6 HOURS NEEDED FOR ASTHMA hydrocodone-acetaminophen 5-325 mg tablet 1 tab PO Q6H PRN (Reason: pain) tramadol 50 mg tablet 50 mg PO Q6H PRN (Reason: pain) Patient Comments: TAKE 1 TABLET BY MOUTH EVERY 6 TO 8 HOURS NEEDED FOR PAIN FOR 10 DAYS silver sulfadiazine 1 % cream 1 applic TOPICAL BID Patient Comments: 1 APPLICATION TOPICALLY TO OPEN BLISTERS TWICE A DAY 30 DAYS Rx Instructions: left inner upper arm, near AV fistula sevelamer carbonate 2.4 gram powder in packet 2.4 g PO TID Patient Comments: TAKE 1 PACKET BY MOUTH 3 TIMES A DAY Discontinued (DME) nebulizer and compressor Device See Rx Instructions .Route Qty: 1 0RF Rx Instructions: As directed (DME) pen needle, diabetic [1st Tier Unifine Pentips] 32 gauge x 5/32 needle See Rx Instructions .Route Qty: 100 0RF Rx Instructions: As directed Referrals: Melinda Callaway MD [Primary Care Provider] - Outpatient Orders (i.e. Home Health, Labs, Imaging): MR cervical spine wo/w con (Routine) Timeframe: 3 Weeks Location: Determined by Patient Ordered By: Kitty Thomas Patient/Caregiver Discharge Instructions Other Discharge Activity Instructions:: ? Follow-up with PCP within 1-2 weeks of discharge. ? Recommended repeat MR cervical spine in 3 weeks (from 11/28/24). ? Continue CEFTRIAXONE and VANCOMYCIN with HD until 12/30/24 (total 6 weeks). ? Continue taking medications as prescribed below. ? Return to Emergency Room if symptoms persist, worsen, or new symptoms develop Okay to use midline for antibiotics Education Materials: Anemia, Osteomyelitis Dc, ED Diet: Diabetes Print Language: Hungarian Stand Alone Forms: Hannah Award Info., Patient Portal Info Letter Discharge Order Discharge Orders: Discharge (Routine); Ordered 11/29/24 Ordered By: Kitty Thomas Quality Discharge Quality Measures VTE prophylaxis MD Attestestation MD Attestation I have discussed and was present for the essential components of the discharge history, physical examination, diagnosis, and discharge treatment plan with the resident. I agree with the patient's discharge care as documented by the resident and amended herein by me. Oscar Chan DO. Xfer to tertiary center intiated Although this document has been carefully reviewed, there may still be some phonetic and other typographical errors. These errors are purely grammatical due to imperfections in the software program and should not be construed in any way to compromise the substance of the patient's medical care during this visit.
--- NOTE | 2024-11-28 15:24 | PC.NURSE ---
Talked to SSW pt waiting for home health., SSW stated that patient will not go home today because Transfer Nurse is working with home health for IV antibiotics for patient. Patient will be going home with PICC line on upper right arm for extermination supervisor antibiotic use. Charge nurse and MD made aware. According to SSW, patient most likely to be d/c in 1-2 days.
--- NOTE | 2024-11-28 15:39 | PC.CC ---
Addendum entered by Romi Nickerson RN 11/28/24 15:42: HH referral sent on [employer] to HH agencies and [facility]. Awaiting responses. Pending start of care date. Original Note: 1440 received orders pt needs HH for IV abx.
[2024-11-28] MEDS: SEVELAMER CARBONATE 0.8 GM PACKET (NON-FORMULARY) 2.4 GM PO (17:54)
--- NOTE | 2024-11-28 20:13 | ESPR_ITS ---
Documentation for date of: 11/28/24 Subjective Subjective Interval history: Patient was seen and examined at bedside. No acute events took place overnight. Patient continues to have constant, moderate neck pain, rated 5/10 in severity after taking [place]. Without pain relief, patient reports her pain to be 7/10. She is states that she feels much better than when she first presented. The pain is the same regardless what direction the head and neck are turning. However with movement there's brief sensation of a pinch. Patient reports having completed dialysis on Friday at [facility]. Exam Vital Signs Temp Pulse Resp BP Pulse Ox O2 Del Method 96.9 F 96 12 158/83 H 96 Room Air 11/28/24 20:00 11/28/24 20:00 11/28/24 20:11/28/24 20:11/28/24 20:00 11/28/24 15:48 Narrative Exam GENERAL: Awake, answering questions appropriately, appears stated age HEENT: NC/AT. Moist mucosa. PERRLA/EOMI. Right eye blind. CARDIO: Heart RRR, no obvious murmurs, no JVD. PULM: No coughing or visible SOB. Lungs CTA B/L. GI: Abdomen soft, NT/ND, +BS. SKIN/MSK/EXT: Right midline catheter. Left AV fistula patent with thrill. Left BKA. No tenderness noted along the spine. No wounds/discoloration/rashes/edema. +Pedal pulses present B/L. NEURO: Oriented x3, Moves extremities x3, no focal neurologic deficits noted Objective Labs 11/29/24 07:17 11/29/24 07:17 Labs: Laboratory Results - last 24 hr 11/27/24 11/28/24 11/28/24 20:10 04:44 07:07 WBC 16.2 H 13.6 H RBC 4.94 4.39 Hgb 12.6 D 11.3 L Hct 40.3 36.4 MCV 82 83 MCH 25.5 25.7 MCHC 31.3 31.0 RDW Std Deviation 50.0 H 51.3 H Plt Count 488 H D 339 D Neut % (Auto) 79 71 Lymph % (Auto) 11 18 Saline % (Auto) 8 9 Eos % (Auto) 1 1 Baso % (Auto) 1 1 Neut # (Auto) 12.8 H 9.7 H Lymph # (Auto) 1.8 2.4 Saline # (Auto) 1.3 H 1.2 H Eos # (Auto) 0.1 0.2 Baso # (Auto) 0.1 0.1 Immature Gran # (Auto) 0.10 H 0.08 H Absolute Nucleated RBC 0.00 0.00 Immature Gran % 1 H 1 H Nucleated RBC % 0 0 Sodium 130 L 134 L Potassium 4.3 4.8 D Chloride 96 L 98 Carbon Dioxide 17.6 L 16.7 L Anion Gap 16 19 H BUN 34 H 38 H Creatinine 6.3 H* D 7.2 H* D Estim Creat Clear Calc Not Performed. 8.5 L eGFR 8 L* 7 L* BUN/Creatinine Ratio 5 L 5 L Glucose 183 H 95 D Calculated Osmolality 273 L 277 Calcium 9.9 9.0 Corrected Calcium 9.9 9.2 Phosphorus 7.0 H Magnesium 2.0 Total Bilirubin 0.3 < 0.2 L AST 13 18 ALT < 7 L < 7 L Alkaline Phosphatase 155 H 144 H Total Protein 8.4 H 7.5 Albumin 4.4 3.7 D Globulin 4.0 H 3.8 H Albumin/Globulin Ratio 1.1 L 1.0 L Random Vancomycin 22.6 Quality Measures Quality Measures VTE prophylaxis Assessment & Plan Assessment Current Active Medications: Generic Name Dose Route Start Last Admin Trade Name Freq PRN Reason Stop Dose Admin Acetaminophen 650 mg 11/27/24 19:46 Acetaminophen 325 Mg Tablet PO 12/27/24 19:45 Q6H PRN Pain 1-3 and/or Fever >100.1 Hydrocodone Bitart/Acetaminophen 1 tab 11/27/24 19:51 11/28/24 06:12 Hydrocodone/Apap 5/325 Tablet PO 12/02/24 19:50 1 tab TID PRN Administration PAIN SCALE 7-10 (Severe Albuterol 2 puff 11/27/24 19:51 Albuterol Inh 8 Gm INH 12/27/24 19:50 Q4HRRT PRN SHORTNESS OF BREATH OR WHEEZE Amlodipine Besylate 10 mg 11/28/24 09:00 11/28/24 09:45 Amlodipine Besylate 5 Mg Tablet PO 12/28/24 08:59 10 mg DAILY NASREEN Administration Cyclobenzaprine HCl 10 mg 11/27/24 19:56 Cyclobenzaprine 5 Mg Tablet PO 12/27/24 19:55 DAILY PRN muscle spasm Dextrose 25 ml 11/27/24 19:52 Dextrose 50%-Water Inj 50 Ml Syringe IV 12/27/24 19:51 Q15MIN PRN BG 50-70 responsive npo pt Dextrose 50 ml 11/27/24 19:52 Dextrose 50%-Water Inj 50 Ml Syringe IV 12/27/24 19:51 Q15MIN PRN BG <50 OR BG <70 & pt unresponsive Glucagon 1 mg 11/27/24 19:52 Glucagon Inj 1 Mg Vial IM Q15MIN PRN BG <70, and no IV access Ceftriaxone Sodium/Dextrose 2 gm in 50 mls @ 100 mls/hr 11/28/24 09:00 11/28/24 09:45 Rocephin/D5w 2gm IV 12/05/24 08:59 100 mls/hr QDAY NASREEN Administration Insulin Human Lispro 0 unit 11/27/24 21:00 11/28/24 16:50 Insulin Lispro (Admelog) 1 Unit/0.01 Ml Unit SC 12/27/24 20:59 1 unit ACHS NASREEN Administration Protocol Lorazepam 2 mg 11/27/24 20:16 Lorazepam 2 Mg/Ml Vial IVP 12/02/24 20:15 Q30M PRN Breakthrough Seizure Ondansetron HCl 4 mg 11/27/24 19:46 Ondansetron Inj 2 Mg/Ml Inj 2 Ml IVP 12/27/24 19:45 Q6H PRN NAUSEA OR VOMITING Protocol Ondansetron HCl 4 mg 11/27/24 19:51 11/28/24 11:44 Ondansetron Odt 4 Mg Tabrap PO 12/27/24 19:50 4 mg Q8H PRN Administration nausea and vomiting Protocol Pharmacy Consult 1 each 11/28/24 09:00 Vancomycin Pharmacy To Dose 1 Each Each IV 12/28/24 08:59 QDAY PRN PROTOCOL Sennosides 1 tab 11/27/24 19:46 Senna Tablet PO 12/27/24 19:45 QDAY PRN constipation Protocol Sevelamer Carbonate 2.4 gm 11/28/24 17:45 11/28/24 17:54 Sevelamer Carbonate 0.8 Gm Packet (Non-Formulary) PO 12/28/24 07:59 2.4 gm TIDWM NASREEN Administration Tramadol HCl 50 mg 11/27/24 19:51 Tramadol Hcl 50 Mg Tablet PO 12/02/24 19:50 Q6H PRN PAIN SCALE 4-6 (Moderate Zolpidem Tartrate 5 mg 11/29/24 00:00 Zolpidem 5 Mg Tablet PO 12/29/24 00:00 HS PRN INSOMNIA Plan 43-year-old female with past medical history of ESRD on HD (M/W/F), AV fistula placed on 10/20/2024, history of seizures (not on any antiseizure medications), hypertension transferred back to [facility] from [facility] on 11/27 will be readmitted for continued IV antibiotic treatment and safe discharge with the plan for continued dialysis pending nephrology approval. #C5-C6 discitis, abscess #GPC bacteremia Patient had MRI findings concerning for C5-C6 discitis versus abscess versus osteomyelitis No biopsy was taken of the abscess due to the location As per note from [facility], recommendations to continue IV antibiotics for 6 weeks during dialysis (patient states that there is a plan to transition to p.o. 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 Livingston (Friday/Friday/Friday) Has a left AV fistula with thrill on examination, patent Plan: Nephrology consulted, appreciate recommendations Continue dialysis schedule along with antibiotics Monitor electrolytes and #Small pericardial effusion Likely secondary to ESRD, uremia versus possible viral infection; unlikely cardiac etiology as per cardiology consult TTE revealed mild pericardial effusion of 8 mm, with elevated RVSP and inferior vena cava greater than 2 cm suggestive of volume overload Cardiology was consulted on last admission and recommended continuing dialysis No evidence of tamponade Plan: Continue to monitor for any acute changes #Insulin-dependent type 2 diabetes Last A1c of 6.2 on 11/18 Patient on home insulin Plan: Sliding scale insulin #Hypertension Patient on home amlodipine 10 mg p.o. daily Plan: Continue home medications #History of seizures Noted on chart patient not on antiseizure medication Plan: Seizure precautions PRN IV Ativan for breakthrough Health Maintenance: Lines: PIV, right midline catheter, left AV fistula Diet: Renal Bowel: Senna as needed GI prophylaxis: Not needed DVT prophylaxis: SCD Dispo: Pending placement and dialysis schedule Code: Full This case was discussed with my attending physician, Dr. Chan. Nael Marcus DO PGY I Attending Provider Attestation/Addendum I have discussed and was present for the essential components of the history, physical examination, diagnosis, and treatment plan with the resident. I agree with the patient's care as documented by the resident and amended herein by me. Oscar Chan DO. Although this document has been carefully reviewed, there may still be some phonetic and other typographical errors. These errors are purely grammatical due to imperfections in the software program and should not be construed in any way to compromise the substance of the patient's medical care during this visit.
[2024-11-29] VITALS (24 sets, daily range): BP systolic 104–188; BP diastolic 59–119; PULSE 62–96; RESP 15–20; TEMP 36.1–37.3; O2SAT 95–99; BMI 27.2
[2024-11-29 08:02] LABS: Basophils # (Auto) 0.1 Thou/mm3 (0.0-0.2); Basophils % (Auto) 1 % (0-2.5); Eosinophils # (Auto) 0.2 Thou/mm3 (0.0-0.5); Eosinophils % (Auto) 2 % (0-10); Hematocrit 36.6 % (36.0-46.0); Hemoglobin 11.5 g/dL (12.0-16.0); Immature Granulocytes Auto 0.04 Thou/mm3 (0.00-0.00); Lymphocytes # (Auto) 3.0 Thou/mm3 (1.0-4.8); Lymphocytes % (Auto) 24 % (10-50); Mean Corpuscular HGB Conc 31.4 g/dl (31.0-37.0); Mean Corpuscular Hemoglobin 25.3 pg (25.0-35.0); Mean Corpuscular Volume 80 fL (80-100); Monocytes # (Auto) 0.9 Thou/mm3 (0.0-0.8); Monocytes % (Auto) 7 % (0-12); Neutrophils # (Auto) 8.3 Thou/mm3 (1.8-7.7); Neutrophils % (Auto) 66 % (37-80); Nucleated Red Blood Cell # 0.00 Thou/mm3 (0.00-0.00); Nucleated Red Blood Cell % 0 /100 WBC (0); Platelet Count 481 Thou/mm3 (140-440); RDW Standard Deviation 50.0 fL (36.4-46.3); Red Blood Count 4.55 Miln/mm3 (4.00-5.20); White Blood Count 12.5 Thou/mm3 (3.6-11.0)
--- NOTE | 2024-11-29 08:26 | PC.IP ---
Pt. is currently on Contact Precaution. Per Bhupendra Mesa RN, who received report from the manager facility RN, the pt. was reported to have tested positive for MRSA in the blood. After review of EMR, 11/17/2024 indicates that the blood cult showed no growth after 5 days. There is no documentation of MRSA bactermia in the Progress notes. Recommended pt. could be removed from Contact Isolation, as there is not confirmed MRSA in the bloodstream.
[2024-11-29 08:33] LABS: Alanine Aminotransferase < 7 U/L (10-49); Albumin, Serum 3.8 gm/dL (3.5-5.0); Albumin/Globulin Ratio 1.1 (1.2-2.2); Alkaline Phosphatase 131 U/L (46-116); Anion Gap 16 (7-16); Aspartate Amino Transferase 10 U/L (0-34); BUN/Creatinine Ratio 7 Ratio (12-20); Bilirubin,Total < 0.2 mg/dL (0.3-1.2); Blood Urea Nitrogen 63 mg/dL (9-23); C-Reactive Protein 4.8 mg/dL (0.0-0.9); Calcium 9.0 mg/dL (8.3-10.6); Calcium (Corrected) 9.2 mg/dL (8.5-10.1); Carbon Dioxide 21.2 mMol/L (20.0-31.0); Chloride 96 mMol/L (98-107); Creatinine (Component) 8.6 mg/dL (0.6-1.3); Estimated Creatinine Clearance 7.2 mL/min (>60); Globulin 3.6 gm/dL (2.3-3.5); Glucose 136 mg/dL (74-106); Magnesium 1.9 mg/dL (1.6-2.6); Osmolality,Calculated 286 (275-295); Potassium 4.8 mMol/L (3.4-5.1); Sodium 133 mMol/L (136-145); Total Protein 7.4 gm/dL (5.7-8.2); Vancomycin,Random 20.3 mcg/mL; eGFR 5 See Note
[2024-11-29] MEDS: HYDROcodone/APAP 5/325 TABLET 1 TAB PO (08:34)
[2024-11-29] MEDS: SEVELAMER CARBONATE 0.8 GM PACKET (NON-FORMULARY) 2.4 GM PO (08:34)
[2024-11-29] MEDS: cefTRIAXone/D5w 2gm 2 GM/50 ML BAG IV (08:35)
[2024-11-29 08:39] LABS: Phosphorous 9.5 mg/dL (2.4-5.1)
--- NOTE | 2024-11-29 08:53 | PC.CC ---
Addendum entered by Nehemiah Villatoro RN 11/29/24 10:26: called HARINI Norris, left VM informing her that [facility] and [facility] are aware pt has a midline and [facility] will coordinate w/ pt on delivery of meds and [facility] will open tomorrow morning. Addendum entered by Nehemiah Villatoro RN 11/29/24 10:17: [facility] will deliver medication today and [facility] can open tomorrow. Spoke to HARINI Norris, informed her. I asked her to confirm with MD that ok to use midline. She will have MD clarify Original Note: [facility] accepted and booked, still waiting for [facility] to verify insurance
[2024-11-29 09:13] LABS: Sed Rate (ESR) 121 mm/hr (0-20)
--- NOTE | 2024-11-29 10:49 | PD.RESCONSUL ---
HPI Data of Consult Consult date: 11/29/24 Requesting Physician: Melinda Callaway MD Admitting Provider: Melinda Callaway MD Attending Provider: Melinda Callaway MD Primary Care Provider: Melinda Callaway MD Consult Narrative Reason for consult: ESRD on HD History of present illness: 43-year-old female with past medical history of ESRD on HD (M/W/F), AV fistula placed on 10/20/2024, history of seizures (not on any antiseizure medications), hypertension transferred back to [facility] from [facility] on 11/27. Of note, patient presented to [facility] initially presented on 11/17 with chief complaint of upper back pain. During workup, patient was noted to have a new pericardial effusion but due to the severity of her upper back pain a cervical spine MRI was completed and showed abnormal signal changes at the C5-C6 vertebral bodies with posterior epidural enhancement. As result, patient was transferred to [facility] for neurosurgery consultation. At [facility], Dr. Ahmadi (neurosurgeon) assessed the patient and recommended repeat MRI in about 3 weeks. Patient was started on long-term IV antibiotics including 2 g of Rocephin and vancomycin and will continue this regiment with dialysis sessions. Patient currently states that she feels much better than when she first presented and denies having any concerning symptoms at this time. Nephrology consulted to resume MWF dialysis session before discharge. 11/29/24: Patient seen and examined at bedside. Endorses some lower abdominal cramping pain due to period starting. Denies chest pain, SOB or fever/chills. Feels well and ready to go home. Scheduled HD for today prior to discharge. cc:: cc: Melinda Callaway MD Review of Systems Review of Systems Systems Reviewed: All systems reviewed, normal except as documented Exam Vital Signs Temp Pulse Resp BP Pulse Ox O2 Del Method 97.4 F 93 18 124/81 98 Room Air 11/29/24 08:00 11/29/24 10:01 11/29/24 08:00 11/29/24 09:20 11/29/24 08:00 11/29/24 08:00 Narrative Exam GENERAL: AOx3, no acute distress HEENT: NC/AT, mucous membranes moist, bilateral sclera anicteric CARDIOVASCULAR: regular rate and rhythm, S1/S2 present, no murmurs appreciated PULMONARY: clear to auscultation bilaterally, no rales/rhonchi/wheezes ABDOMINAL: soft, non-tender, non-distended, no rebound/guarding, bowel sounds present EXTREMITIES: no peripheral edema, L inner arm AV fistula present with palpable thrill SKIN: warm and dry, intact, no rashes NEURO: CN II-XII grossly intact, no focal deficits, alert, following commands Results Labs 11/29/24 07:17 11/29/24 07:17 Labs: Short CBC 11/29/24 Range/Units 07:17 WBC 12.5 H (3.6-11.0) Thou/mm3 Hgb 11.5 L (12.0-16.0) g/dL Hct 36.6 (36.0-46.0) % Plt Count 481 H D (140-440) Thou/mm3 BMP 11/29/24 07:17 Sodium 133 L Potassium 4.8 Chloride 96 L Carbon Dioxide 21.2 BUN 63 H Creatinine 8.6 H* D Glucose 136 H Calcium 9.0 Liver Function 11/29/24 Range/Units 07:17 Total Bilirubin < 0.2 L (0.3-1.2) mg/dL AST 10 (0-34) U/L ALT < 7 L (10-49) U/L Alkaline Phosphatase 131 H (46-116) U/L Albumin 3.8 (3.5-5.0) gm/dL Quality Measures Quality Measures VTE prophylaxis Medications Home Medications and Allergies Home Medications ?Medication ?Instructions ?Recorded ?Confirmed ?Type amlodipine 5 mg tablet 10 mg PO DAILY 05/18/24 11/27/24 History sevelamer carbonate 2.4 gram oral 2.4 g PO TID 11/17/24 11/27/24 History powder packet silver sulfadiazine 1 % topical 1 applic topical BID 11/17/24 11/27/24 History cream tramadol 50 mg tablet 50 mg PO Q6H PRN pain 11/17/24 11/27/24 History albuterol sulfate 90 mcg/actuation 2 puff inhalation .4-6 hours PRN 11/27/24 11/27/24 History aerosol inhaler shortness of breath or wheezing cyclobenzaprine 10 mg tablet 10 mg PO DAILY PRN muscle spasm 11/27/24 11/27/24 History hydrocodone 5 mg-acetaminophen 325 1 tab PO Q6H PRN pain 11/27/24 11/27/24 History mg tablet hydrocodone 5 mg-acetaminophen 325 1 tab PO TID PRN pain 11/27/24 11/27/24 History mg tablet insulin glargine 100 unit/mL (3 38 unit subcut QAM 11/27/24 11/27/24 History mL) subcutaneous pen (Basaglar KwikPen U-100 Insulin) insulin regular human 100 unit/mL 1 sliding scale dose subcut TIDWM 11/27/24 11/27/24 History injection solution (Novolin R Regular U-100 Insulin) ondansetron 4 mg disintegrating 4 mg PO Q8H PRN nausea and vomiting 11/27/24 11/27/24 History tablet Allergies Allergy/AdvReac Type Severity Reaction Status Date / Time amoxicillin (From Augmentin) Allergy Severe Swelling Verified 11/17/24 01:47 of Lip/Tongue/Throat clavulanic acid (From Allergy Severe Swelling Verified 11/17/24 01:47 Augmentin) of Lip/Tongue/Throat mushroom AdvReac Intermediate Nausea Verified 11/28/24 06:38 Visit Medications Acetaminophen (Acetaminophen 325 Mg Tablet) 650 mg PO Q6H PRN PRN Reason: Pain 1-3 and/or Fever >100.1 Stop: 12/27/24 19:45 Hydrocodone Bitart/Acetaminophen (Hydrocodone/Apap 5/325 Tablet) 1 tab PO TID PRN PRN Reason: PAIN SCALE 7-10 (Severe Stop: 12/02/24 19:50 Last Admin: 11/29/24 08:34 Dose: 1 tab Albuterol (Albuterol Inh 8 Gm) 2 puff INH Q4HRRT PRN PRN Reason: SHORTNESS OF BREATH OR WHEEZE Stop: 12/27/24 19:50 Amlodipine Besylate (Amlodipine Besylate 5 Mg Tablet) 10 mg PO DAILY NASREEN Stop: 12/28/24 08:59 Last Admin: 11/29/24 09:20 Dose: Not Given Cyclobenzaprine HCl (Cyclobenzaprine 5 Mg Tablet) 10 mg PO DAILY PRN; Protocol PRN Reason: muscle spasm Stop: 12/27/24 19:55 Last Admin: 11/29/24 01:12 Dose: 10 mg Dextrose (Dextrose 50%-Water Inj 50 Ml Syringe) 25 ml IV Q15MIN PRN PRN Reason: BG 50-70 responsive npo pt Stop: 12/27/24 19:51 Dextrose (Dextrose 50%-Water Inj 50 Ml Syringe) 50 ml IV Q15MIN PRN PRN Reason: BG <50 OR BG <70 & pt unresponsive Stop: 12/27/24 19:51 Glucagon (Glucagon Inj 1 Mg Vial) 1 mg IM Q15MIN PRN PRN Reason: BG <70, and no IV access Ceftriaxone Sodium/Dextrose (Rocephin/D5w 2gm) 2 gm in 50 mls @ 100 mls/hr IV QDAY NASREEN Stop: 12/05/24 08:59 Last Admin: 11/29/24 08:35 Dose: 100 mls/hr Insulin Human Lispro (Insulin Lispro (Admelog) 1 Unit/0.01 Ml Unit) 0 unit SC [facility]; Protocol Stop: 12/27/24 20:59 Last Admin: 11/29/24 07:40 Dose: Not Given Lorazepam (Lorazepam 2 Mg/Ml Vial) 2 mg IVP Q30M PRN PRN Reason: Breakthrough Seizure Stop: 12/02/24 20:15 Ondansetron HCl (Ondansetron Inj 2 Mg/Ml Inj 2 Ml) 4 mg IVP Q6H PRN; Protocol PRN Reason: NAUSEA OR VOMITING Stop: 12/27/24 19:45 Ondansetron HCl (Ondansetron Odt 4 Mg Tabrap) 4 mg PO Q8H PRN; Protocol PRN Reason: nausea and vomiting Stop: 12/27/24 19:50 Last Admin: 11/28/24 11:44 Dose: 4 mg Pharmacy Consult (Vancomycin Pharmacy To Dose 1 Each Each) 1 each IV QDAY PRN PRN Reason: PROTOCOL Stop: 12/28/24 08:59 Sennosides (Senna Tablet) 1 tab PO QDAY PRN; Protocol PRN Reason: constipation Stop: 12/27/24 19:45 Sevelamer Carbonate (Sevelamer Carbonate 0.8 Gm Packet (Non-Formulary)) 2.4 gm PO TIDWM NASREEN Stop: 12/28/24 07:59 Last Admin: 11/29/24 08:34 Dose: 2.4 gm Tramadol HCl (Tramadol Hcl 50 Mg Tablet) 50 mg PO Q6H PRN PRN Reason: PAIN SCALE 4-6 (Moderate Stop: 12/02/24 19:50 Last Admin: 11/28/24 21:24 Dose: 50 mg Zolpidem Tartrate (Zolpidem 5 Mg Tablet) 5 mg PO HS PRN PRN Reason: INSOMNIA Stop: 12/29/24 00:00 Discontinued Medications Ceftriaxone Sodium 2 gm/ (Sodium Chloride) 50 mls @ 100 mls/hr IV QDAY NASREEN Stop: 12/04/24 19:48 Ceftriaxone Sodium 2 gm/ (Sodium Chloride) 50 mls @ 100 mls/hr IV QDAY NASREEN Stop: 12/05/24 08:59 Vancomycin/Sodium Chloride (Vancomycin/Ns 1 Gm Ivpb) 200 mls @ 120 mls/hr IV X1 ONE Stop: 11/28/24 00:09 Last Admin: 11/28/24 00:31 Dose: Not Given Ceftriaxone Sodium/Dextrose (Rocephin/D5w 1gm Iv Premix) 50 mls @ 100 mls/hr IV QDAY NASREEN Stop: 12/05/24 08:59 Sevelamer Carbonate (Sevelamer Carbonate 800 Mg Tablet) 2,400 mg PO TID NASREEN Stop: 12/27/24 21:59 Last Admin: 11/27/24 21:45 Dose: Not Given Sevelamer Carbonate (Sevelamer Carbonate 800 Mg Tablet) 2,400 mg PO TIDWM NASREEN Stop: 12/28/24 07:59 Last Admin: 11/28/24 11:35 Dose: 2,400 mg Sevelamer Carbonate (Sevelamer Carbonate 2.4 Gm Packet (Non-Formulary)) 2.4 gm PO TIDWM NASREEN Stop: 12/28/24 07:59 Zolpidem Tartrate (Zolpidem 5 Mg Tablet) 5 mg PO HS PRN PRN Reason: INSOMNIA Stop: 12/27/24 22:04 Last Admin: 11/28/24 00:11 Dose: 5 mg Zolpidem Tartrate (Zolpidem 5 Mg Tablet) 5 mg PO X1 ONE Stop: 11/28/24 16:12 Zolpidem Tartrate (Zolpidem 5 Mg Tablet) 5 mg PO X1 ONE Stop: 11/28/24 18:01 Last Admin: 11/28/24 18:20 Dose: 5 mg Assessment & Plan Plan 43-year-old female with past medical history of ESRD on HD (M/W/F), AV fistula placed on 10/20/2024, history of seizures (not on any antiseizure medications), hypertension transferred back to [facility] from [facility] on 11/27 will be readmitted for continued IV antibiotic treatment and safe discharge with the plan for continued dialysis. Nephrology consulted for HD as patient's schedule is MWF. #ESRD on HD MWF Reports MWF dialysis with Dr. Livingston at [facility] through L AV fistula placed 10/20/24 At time of consult, Na 133, K 4.8, BUN 63, Cr 8.6, Ca 9.2, Phos 9.5, Mg 1.9 Plan: -Ordered HD -Continue MWF dialysis Plan discussed with nephrology attending Dr. Landin. Arianna Jones, DO Internal Medicine PGY-1 Attending Provider Attestation/Addendum patient seen and examined with resident physician Dr. Jones. Note reviewed, agree with findings and recommendations. Patient currently seen on dialysis. Tolerating dialysis without any problems. Hemodialysis for 3 hours, 2K, ultrafiltration 2-3 L, Epogen 6000, no heparin ordered. Plan of care discussed with the dialysis nurse. Please see dialysis flowsheet for further details. Patient will be discharged today-will get antibiotics at [place] [facility].
--- NOTE | 2024-11-29 10:53 | PC.SS ---
Follow up note: SS spoke to transfer nurse who confirmed [facility] will deliver i.v. meds tonight to patient's home. Zora TYSON will follow patient tomorrow. Patient can dc home today. Patient was already given todays i.v. dose.
[2024-11-29 12:42] LABS: Hepatitis A Antibody IgM Non Reactive (Non React); Hepatitis B Core Antibody IgM Non Reactive (Non React); Hepatitis B Surface Ab NonReact(Not Immune) (Immune); Hepatitis B Surface Antigen Non Reactive (Non React); Hepatitis C Antibody Non Reactive (Non React)
--- NOTE | 2024-11-29 12:45 | PC.NURSE ---
Patient sitting in w/c in room with clothes on ready for discharge. dip dyer removed. Patient states was told by MD that she didn't need dialysis today and was ready to be discharged. RN called Dr. Whitten regarding dialysis which MD stated she needed to have prior to discharge. RN informed patient of what MD said and patient again stated she was told she didn't need dialysis.
--- NOTE | 2024-11-29 13:30 | PC.NURSE ---
Patient to dialysis via w/c.
--- NOTE | 2024-11-29 13:40 | PC.NURSE ---
Called Dr. Thomas regarding patient insisting not having dialysis prior to discharge. Kunal financial institution treasurer at bedside. Dr. Thomas stated patient will require dialysis prior to discharge and will come talk to patient. Patient states she agrees to have dialysis prior to discharge but will have to tell her sister who is her ride. Patient states sister is here waiting on her to be discharged and does not have time and gas money to keep going back and forth. Patient refuse to have gown on and monitoring specialist put back on.
--- NOTE | 2024-11-29 16:57 | PC.NURSE ---
Patient back from dialysis to room.
--- NOTE | 2024-11-29 20:03 | ESDS_ITS ---
Planned Discharge Date 11/29/24 DS: Providers Provider Date of admission: 11/27/24 18:10 Primary care physician: Melinda Callaway MD Admitting Provider: Melinda Callaway MD Attending Provider on Admission: Melinda Callaway MD Consults: 11/27/24 19:50 Consult to Nephrology Routine Comment: Consulting Provider: Bala Livingston 11/27/24 23:00 Referral Nutritional Services Routine Comment: Instructions: pt returned to [facility], wound left arm, right arm, and right plantar foot callus. Referral Wound Care Routine Comment: Instructions: pt returned to [facility], wound left arm, right arm, and right plantar foot callus. 11/28/24 04:35 Referral Infection Control Routine Comment: Reason for Infection Control Referral: Readmitted within 30 days Multiple ABX (>2) Current Dialysis Patient TB, MENGI, HEP, MRSA,CDIF 11/28/24 12:42 Consult to Nephrology Routine Comment: HD MWF with Dr Livingston, last session Friday Consulting Provider: Sandrine Landin Instructions: Epidural abscess - needs daily VANC/CTX Attending Provider on DC: Ren Whitten MD Discharging Provider: Ren Whitten MD DS: Diagnosis Problem List Completed Was Problem List Reviewed/Reconciled?: Yes Hospital Course Hospital Course Hospital course: 43-year-old female with past medical history of ESRD on HD (M/W/F), AV fistula placed on 10/20/2024, history of seizures (not on any antiseizure medications), hypertension transferred back to [facility] from [facility] on 11/27. Of note, patient presented to [facility] initially presented on 11/17 with chief complaint of upper back pain. During workup, patient was noted to have a new pericardial effusion but due to the severity of her upper back pain a cervical spine MRI was completed and showed abnormal signal changes at the C5-C6 vertebral bodies with posterior epidural enhancement. As result, patient was transferred to [facility] for neurosurgery consultation. At [facility], Dr. Ahmadi (neurosurgeon) assessed the patient and recommended repeat MRI in about 3 weeks. Patient was started on long-term IV antibiotics including 2 g of Rocephin and vancomycin and will continue this regiment with dialysis sessions. Patient currently states that she feels much better than when she first presented and denies having any concerning symptoms at this time. Nephrology consulted to resume MWF dialysis session before discharge. 11/29/24: Patient seen and examined at bedside. Endorses some lower abdominal cramping pain due to period starting. Denies chest pain, SOB or fever/chills. Feels well and ready to go home. Scheduled HD for today prior to discharge. Time Spent with Patient Time attestation: Total time spent providing and/or coordinating discharge services: Time spent: Greater than 30 minutes Home Health Home Health Referral Orders: 11/28/24 14:40 Home Health Referral Routine Reason For Exam: IV Abx Home-Bound The patient must either because of illness or injury, need the aid of supportive devices such as crutches, canes, wheelchairs, and walkers; the use of special transportation; or the assistance of another person in order to leave their place of residence; OR have a condition such that leaving his or her home is medically contraindicated. In addition, the patient also meets the following criteria: patient is normally unable to leave the home and leaving home requires con siderable taxing effort. Addendum to Home Health Certification Practitioner's Certification: I certify that the patient has been under my care in the hospital and the care of attending physician (see below). We had a [id number] encounter on (see date below). My clinical findings indicate that the patient is home bound per the above criteria and the Home Health Services noted in these orders are medically necessary. The primary reason for the [id number]-[id number] encounter is related to the fact that the patient requires home health services. Date Certifying Kfjo-dm-Dwib Physician Encounter: 11/27/24 Physician's Name who will Assume Oversight for Services: Melinda Callaway Physician's Phone No.who will Assume Oversight for Service[place] [facility] [place]: No PT to Evaluate: Yes PT to evaluate and provide a treatmnet plan to increase patient's mobility and strength. Wound Care: No IV Therapy: Yes: Needs to be in morning, pt has dialysis at 1:30PM [facility] IV Medication: Ceftriaxone IV Dose: 2Gm IV Frequency: daily IV Stop Date: 12/30/24 Discontinue PICC Line Once Treatment Complete: Yes RN Safety Evaluation: Yes RN to evaluate and create a plan of care that will produce positive outcomes. Palliative Treatment: No Palliative treatment and evaluate the need for hospice. Home Health Aide - Personal Care: No Home Health Aide to assist with any ADL's. Exam Vital Signs Temp Pulse Resp BP Pulse Ox O2 Del Method 97.1 F 92 20 141/101 H 95 Room Air 11/29/24 16:42 11/29/24 16:48 11/29/24 16:48 11/29/24 16:42 11/29/24 16:48 11/29/24 12:00 Discharge Plan Plan Patient Disposition: Home w/HOME HEALTH Disposition Comment: Okay to use midline for antibiotics Patient condition on transfer: Stable Health Concerns: Okay to use midline for antibiotics Care Plan Goals: * Follow-up with PCP within 1-2 weeks of discharge. * Recommended repeat MR cervical spine in 3 weeks (from 11/28/24). * Continue CEFTRIAXONE and VANCOMYCIN with HD until 12/30/24 (total 6 weeks). * Continue taking medications as prescribed below. * Return to Emergency Room if symptoms persist, worsen, or new symptoms develop. Prescriptions/Referrals Prescriptions/Med Rec: Continued amlodipine 5 mg tablet 10 mg PO DAILY Patient Comments: TAKE 1 TABLET BY MOUTH DAILY FOR BLOOD PRESSURE hydrocodone-acetaminophen 5-325 mg tablet 1 tab PO TID PRN (Reason: pain) Patient Comments: TAKE 1 TABLET BY MOUTH 3 TIMES A DAY NEEDED FOR PAIN ondansetron 4 mg tablet,disintegrating 4 mg PO Q8H PRN (Reason: nausea and vomiting) Patient Comments: DISSOLVE 1 TABLET ON TONGUE EVERY 8 HOURS NEEDED FOR NAUSEA AND VOMITING Rx Instructions: sublingual cyclobenzaprine 10 mg tablet 10 mg PO DAILY PRN (Reason: muscle spasm) insulin glargine [Basaglar KwikPen U-100 Insulin] 100 unit/mL (3 mL) insulin pen 38 unit subcut QAM Novolin R Regular U100 Insulin 100 unit/mL solution 1 sliding scale dose subcut TIDWM Patient Comments: USE UP TO 30 UNITS MAX/ DAY PER SLIDING SCALE 3 TIMES A DAY albuterol sulfate 90 mcg/actuation HFA aerosol inhaler 2 puff INHALATION .4-6 hours PRN (Reason: shortness of breath or wheezing) Patient Comments: USE ONE TO TWO INHALATIONS BY MOUTH EVERY 4-6 HOURS NEEDED FOR ASTHMA hydrocodone-acetaminophen 5-325 mg tablet 1 tab PO Q6H PRN (Reason: pain) tramadol 50 mg tablet 50 mg PO Q6H PRN (Reason: pain) Patient Comments: TAKE 1 TABLET BY MOUTH EVERY 6 TO 8 HOURS NEEDED FOR PAIN FOR 10 DAYS silver sulfadiazine 1 % cream 1 applic TOPICAL BID Patient Comments: 1 APPLICATION TOPICALLY TO OPEN BLISTERS TWICE A DAY 30 DAYS Rx Instructions: left inner upper arm, near AV fistula sevelamer carbonate 2.4 gram powder in packet 2.4 g PO TID Patient Comments: TAKE 1 PACKET BY MOUTH 3 TIMES A DAY Discontinued (DME) nebulizer and compressor Device See Rx Instructions .Route Qty: 1 0RF Rx Instructions: As directed (DME) pen needle, diabetic [1st Tier Unifine Pentips] 32 gauge x 5/32 needle See Rx Instructions .Route Qty: 100 0RF Rx Instructions: As directed Referrals: Melinda Callaway MD [Primary Care Provider] - Outpatient Orders (i.e. Home Health, Labs, Imaging): MR cervical spine wo/w con (Routine) Timeframe: 3 Weeks Location: Determined by Patient Ordered By: Kitty Thomas Patient/Caregiver Discharge Instructions Other Discharge Activity Instructions:: ? Follow-up with PCP within 1-2 weeks of discharge. ? Recommended repeat MR cervical spine in 3 weeks (from 11/28/24). ? Continue CEFTRIAXONE and VANCOMYCIN with HD until 12/30/24 (total 6 weeks). ? Continue taking medications as prescribed below. ? Return to Emergency Room if symptoms persist, worsen, or new symptoms develop Okay to use midline for antibiotics Education Materials: Anemia, Osteomyelitis Dc, ED Diet: Diabetes Print Language: Mohawk Stand Alone Forms: Hannah Award Info., Patient Portal Info Letter Discharge Order Discharge Orders: Discharge (Routine); Ordered 11/29/24 Ordered By: Kitty Thomas Quality Discharge Quality Measures VTE prophylaxis Attestestation Attestation I discussed with and supervised the resident physician who took care of this patient. I agree with the assessment and discharge plan as above. Follow-up with primary care provider as scheduled or return to the ER for recurrent symptoms.
--- NOTE | 2024-11-30 11:25 | PC.CM ---
I received a call from [facility] asking if patient was discharged. I let her know patient was discharged and the notes reflect she was going to be followed by [facility] and [facility]. [facility] states the referral was closed on . I let her know once we complete the referral on our end we do close the case. She states they spoke to [facility] and they did see patient today.
== END 2024-11-29 17:18 | disposition home health service (06) | DRG 49 ==
LOC: S2NX 11-28 14:14 → S3NX 11-29 00:16
PROVIDERS: Internal Medicine; Admitting Provider Student in an Organized Health Care Education/Training Program; PCP Student in an Organized Health Care Education/Training Program; Visit Provider Student in an Organized Health Care Education/Training Program
DX: G06.2 Extradural and subdural abscess, unspecified (principal); I12.0 Hypertensive chronic kidney disease with stage 5 chronic kidney disease or end stage renal disease; M46.42 Discitis, unspecified, cervical region; N18.6 End stage renal disease; E11.22 Type 2 diabetes mellitus with diabetic chronic kidney disease; H54.61 Unqualified visual loss, right eye, normal vision left eye; R78.81 Bacteremia; B96.89 Other specified bacterial agents as the cause of diseases classified elsewhere; R56.9 Unspecified convulsions; I31.39 Other pericardial effusion (noninflammatory); L84 Corns and callosities; S41.102A Unspecified open wound of left upper arm, initial encounter; S41.101A Unspecified open wound of right upper arm, initial encounter; Z99.2 Dependence on renal dialysis; Z89.512 Acquired absence of left leg below knee; Z90.49 Acquired absence of other specified parts of digestive tract; Z79.4 Long term (current) use of insulin; Z79.899 Other long term (current) drug therapy; Z88.0 Allergy status to penicillin; X58.XXXA Exposure to other specified factors, initial encounter
CPT/HCPCS: 36415; 80053; 80074; 80202; 83735; 84100; 85025; 85652; 86140; 86706; 87081; J0696; J1815; Q0162; A9270

== ENCOUNTER 2024-12-13 14:48 | Emergency (ER) | payer MEDICAID, SELFPAY ==
[2024-12-13] VITALS (23 sets, daily range): BP systolic 83–202; BP diastolic 17–112; PULSE 92–108; RESP 13–20; TEMP 36.3–36.8; O2SAT 97–98; BMI 27.8
--- NOTE | 2024-12-13 15:17 | XR_ITS ---
Examination: CT brain head without contrast. 2-D sagittal coronal reconstructions Date and time of exam:December 13, 2024, 1731 hours INDICATIONS: Altered mental status today CTDI: vol (mGy):52.7 DLP: (mGycm):1008 Technique: Multiple CT axial sections of the brain have been obtained, 5 mm slice thickness. Contrast has not been administered. 2-D sagittal, coronal reconstructions have been obtained Low dose protocols were performed. One or more of the following dose reduction techniques were used; automated exposure control, adjustment of the mA and/or KV according to patient size, use of iterative reconstruction technique. Findings: No significant ventricular enlargement. 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 No mass effect or midline shift Basal cisterns are not remarkable. Fourth ventricle is midline. Cranial vault intact. Impression: Negative for acute hemorrhage, mass effect or midline shift As clinically warranted, brain MRI follow-up would best assess for acute ischemic change
--- NOTE | 2024-12-13 15:17 | XR_ITS ---
Examination: AP chest single view Technique one AP portable semiupright chest single view Date and time: December 13, 2024 seen 26 hours Comparison November 10, 2024 INDICATIONS: Altered mental status today. FINDINGS: Mild enlargement cardiac contour. Mild vascular congestion. No lobar pneumonia or pulmonary edema Mild osteopenia IMPRESSION: Mild vascular congestion Mild cardiomegaly
--- NOTE | 2024-12-13 15:17 | EKG_ITS ---
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
--- NOTE | 2024-12-13 15:23 | EDNOTE_ITS ---
ED General RME/HPI General Chief complaint: Altered Mental Status Stated complaint: WEAKNESS Time Seen by Provider: 12/13/24 15:14 Arrival date/time: 12/13/24 14:48 CC: Altered mental status HPI patient presents to the ER via EMS with hypertension as reported by EMS but no other complaints, the patient is mildly confused unable to state why she is specifically here how she got the black eye of the left eye, states that she is fallen recurrently. Is unable to admit to anything other than she has missed dialysis for last several times. Review the medical record showed discharge summary from November 27 that shows the patient was transferred from [facility] after neurosurgical assessment for infection/mass on her back that required a PICC line with IV antibiotics for 3 weeks and reassessment. 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 Patient awake alert oriented x 3 but has no short-term medium or long-term memory. Related Data Home Medications ?Medication ?Instructions ?Recorded ?Confirmed amlodipine 5 mg tablet 10 mg PO DAILY 05/18/2411/03 sevelamer carbonate 2.4 gram oral 2.4 g PO TID 5 11/27/24 powder packet silver sulfadiazine 1 % topical 1 applic topical BID 0 11/17/24 11/27/24 cream tramadol 50 mg tablet 50 mg PO Q6H PRN pain 11/27/24 albuterol sulfate 90 mcg/actuation 2 puff inhalation . 4-6 hours PRN 11/27/24 11/27/24 aerosol inhaler shortness of breath or wheez ing cyclobenzaprine 10 mg tablet 10 mg PO DAILY PRN muscle spasm 11/27/24 11/27/24 hydrocodone 5 mg-acetaminophen 325 1 tab PO Q6H PRN pa in 11/27/24 11/27/24 mg tablet hydrocodone 5 mg-acetaminophen 325 1 tab PO TID PRN pa in 11/27/24 11/27/24 mg tablet insulin glargine 100 unit/mL (3 38 unit subcut QAM 11/27/24 mL) subcutaneous pen (Basaglar KwikPen U-100 Insulin) insulin regular human 100 unit/mL 1 sliding scale dose subcut TIDWM 11/27/24 11/27/24 injection solution (Novolin R Regular U-100 Insulin) ondansetron 4 mg disintegrating 4 mg PO Q8H PRN nausea and vomiting 11/27/24 11/27/24 tablet Allergies Allergy/AdvReac Type Severity Reaction Status Date / Time amoxicillin (From Augmentin) Allergy Severe Swelling Verified 11/17/24 01:47 of Lip/Tongue/Throat clavulanic acid (From Allergy Severe Swelling Verified 11/17/24 01:47 Augmentin) of Lip/Tongue/Throat mushroom AdvReac Intermediate Nausea Verified 11/28/24 06:38 Review of Systems Review of Systems ROS Unobtainable: unobtainable due to mental status Past Medical History Past Medical History NEUROLOGIC: Positive Seizures and Epilepsy; Negative Neurological Disorders, Cerebrovascular Accident, Transient Ischemic Attacks (TIA), Dementia, Alzheimer's Disease, Parkinson's Disease, Brain Tumor, Meningitis, Multiple Sclerosis, Cerebral Palsy, Amyotrophic Lateral Sclerosis (ALS/Autumn Gehrig's), Guillain-[place] Syndrome, Spina Bifida, Paralysis, Peripheral Neuropathy, Espino's Palsy, Subdural Hematoma, Migraine, Head Trauma, Spinal Cord Injury or Traumatic Brain Injury CARDIAC: Positive Hypercholesterolemia, Cellulitis, Hypertension and Hypotension; Negative Cardiac Disorders, Myocardial Infarction, Cardiac Arrhythmia, Atrial Fibrillation, Angina, Heart Murmur, Coronary Artery Disease, Atherosclerotic Heart Disease, Peripheral Vascular Disease, Aneurysm, Congestive Heart Failure, Congenital Heart Disease, Valvular Heart Disease, Rheumatic Fever, Cardiomyopathy, Edema, Pericarditis, Deep Vein Thrombosis or Varicose Veins RESPIRATORY: Positive Asthma and Pneumonia; Negative Chronic Obstructive Pulmonary Disease (COPD), Bronchitis, Emphysema, Pulmonary Fibrosis, Cystic Fibrosis, Tuberculosis, Pulmonary Embolism, Pulmonary Edema or Sleep Apnea GASTROINTESTINAL: Negative Gastrointestinal Disorders, Hepatitis, Cirrhosis, Pancreatitis, Celiac Disease, Gall Bladder Disease, Gastrointestinal Bleed, Esophageal Varices, Gastelum's Esophagus, Colitis, Ulcerative Colitis, Diverticulitis, Diverticulosis, Ulcer, Colorectal Cancer, Irritable Bowel, Crohn's Disease, Obstructive Bowel, Hiatal Hernia, Hemorrhoids, Gastroesophageal Reflux Disease or Obesity GENITOURINARY: Positive Renal Disease and Dialysis (Left AV fistula); Negative Genitourinary Disorders, Kidney Stones, Polycystic Kidney Disease, Neurogenic Bladder, Inguinal Hernia or Prostate Cancer REPRODUCTIVE: Positive Previous Pregnancies; Negative Breast Cancer, Endometriosis, Genital Herpes, Gonorrhea, Pelvic Inflammatory Disease, Syphilis, Testicular Cancer or Uterine Prolapse MUSCULOSKELETAL: Positive Osteomyelitis; Negative Musculoskeletal Disorders, Muscular Dystrophy, Myasthenia Gravis, Marfan's Syndrome, Bone Cancer, Arthritis, Rheumatoid Arthritis, Osteoporosis, Degenerative Disk Disease, Gout, Scoliosis, Carpal Tunnel Syndrome, Fibromyalgia, Fractures, Degenerative Joint Disease or Poliovirus 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); Negative Cataracts, Glaucoma, Macular Degeneration, Ear Infection, Deafness, Head Trauma or Eye Prosthesis ENDOCRINE: Positive Endocrine Disorders, Diabetes Mellitus Type 2 and Hypoglycemia; Negative Diabetes Mellitus Type 1, [place]'s Syndrome, Mcmullen's Disease, Hyperthyroidism, Hypothyroidism, Parathyroid Disease, Pituitary Disease, Systemic Lupus Erythematosus, Syndrome of Inappropriate Antidiuretic Hormone (SIADH), Adrenal Disease or Graves' Disease HEMATOLOGIC: Positive Anemia; Negative Blood Disorders, Leukemia, Hemophilia, Thalassemia, Sickle Cell Disease or Clotting Problems PSYCHO/SOCIAL: Positive Anxiety; Negative Psychiatric Problems, Schizophrenia, Recreational Drug Use, Bipolar Disorder, Depression, Behavior Problems, Self-Mutilation, Attention Deficit Disorder, Attention Deficit Hyperactivity Disorder, Depression, Post Traumatic Stress Disorder or Eating Disorder OTHER HISTORY: Positive Hospitalization, Falls, Blood Transfusions and Chicken Pox (hx of shingles); Negative Autoimmune Disease, Down Syndrome, Autism, Developmental Delay, Shingles, Blood Transfusion Reaction, Anesthesia Reactions, Organ Transplant, Chemotherapy, Radiation Therapy, Hyperbaric Therapy, MRSA, VRSA, Vancomycin- Resistant Enterococci, Human Immunodeficiency Virus (HIV), Measles, Mumps, Rubella ([place]vian Measles), Pertussis, Clostridium Difficile, Cancer, Breast Cancer, Cervical Cancer, Colorectal Cancer, Lung Cancer, Ovarian Cancer, Prostate Cancer or Testicular Cancer Family History FAMILY HISTORY: Positive Family Respiratory Disorders and Family Cardiac Disorders; Negative Family Psychiatric Problems, Family Gastrointestinal Problems, Family Cancer, Family Surgery or Family Anesthesia Reaction Surgical History SURGICAL: Positive Abdominal Surgery and Amputation (right 2nd toe, left BKA); Negative Cardiac Surgery, Open Heart Surgery, Coronary Artery Bypass Graft, Valve Replacement, Vascular Surgery, Coronary Stent, Cardiac Catheterization, Pacemaker, Angiogram, Auto Implanted Cardiovert Defib, Carotid Endarterectomy, Endocrine Surgery, Thyroidectomy, Ear Surgery, Tympanostomy Tube, Eye Surgery, Nose Surgery, Oral Surgery, Tonsillectomy, Adenoidectomy, Cochlear Implant, Corneal Transplant, Throat Surgery, Tracheostomy, Gastric Bypass Surgery, Gastrostomy, Bowel Surgery, Nephrectomy, Transurethral Resection, Joint Replacement, Open Reduction Internal Fixation, Arthroscopy, Neurologic Surgery, Brain Shunt, Mastectomy, Lumpectomy, Hysterectomy, Tubal Ligation, Section, Vasectomy or Organ Transplant Social History SMOKING STATUS: Never smoker SECOND HAND EXPOSURE: No SUBSTANCE USE: does not use ED Exam Narrative Physical exam: [General: Obese appears not in any acute distress Head normocephalic HEENT: Face, she has later stage resolving ecchymosis around the left eye eyes: Pupils are PERRLA EOMs are intact mouth pink moist membranes uvula is midline swallow symmetrical phonation is normal. All other subsystems of HEENT are within acceptable limits Neck is supple nontender no JVD no edema Chest equal chest rise nontender to palpation old right anterior dialysis shunt catheter scar clean dry and intact Respiratory: Clear to auscultation no wheezes crackles or rubs CV: Rate rhythm is regular no murmurs rubs or clicks Abdomen is distended secondary to body habitus soft nontender no masses positive bowel sounds all 4 quadrants Back: No CVA tenderness no spinous process tenderness from cervical spine thoracic and lumbar spine Skin: Intact no petechiae rash induration ulceration or crepitus, left BKA stump is clean dry and intact. She has dressing to the skin on her right foot old chronic stasis ulcers in various stages of slow resolution. No surrounding erythema or streaking of the foot not warm to touch. Extremities: Left BKA, otherwise moving all other extremities against resistance cap refill less than 2 seconds neurosensory intact Neuro: Awake alert oriented x3 Glascow coma 15 no focal deficits] Course Course Course Narrative: Patient returns to the emergency room from dialysis center at 2232, dialysis nurse states 1.7 L was removed, patient at 1 point had low blood pressure but currently is 121/71. Patient is awake alert. Will reorder CMP for checking the potassium level. Quality Measures none Orders Category Date Time Status 24 HR Medical Restraints Q2HR Care 12/13/24 18:39 Completed Consult Carrier Associate NOW Care 12/14/24 18:41 Completed EKG (ED ONLY) *Do not use* NOW Care 12/13/24 15:17 Completed Hemodialysis Urgent Care 12/13/24 18:01 Active In and Out Catheter X1 Care 12/13/24 15:20 Completed MRI Screening NOW Care 12/14/24 05:59 Completed Rigid cervical collar PRN Care 12/14/24 17:51 Completed Consult to Nephrology Stat Cons 12/13/24 17:15 Ordered Referral - Wool Supplier Stat Cons 12/14/24 16:[address] cervical spine wo con Stat Exams 12/13/24 18:[address] head/brain wo con Stat Exams 12/13/24 15:17 Completed EKG (ED Only) Stat Exams 12/13/24 15:17 Draft MR cervical spine wo con Stat Exams 12/14/24 Completed XR chest 1V Stat Exams 12/13/24 15:17 Completed Ammonia Stat Lab 12/13/24 16:11 Completed B-Type Natriuretic Peptide Stat Lab 12/13/24 16:11 Completed CBC Stat Lab 12/13/24 16:11 Completed CMP [Comprehensive Metabolic Panel] Stat Lab 12/13/24 22:32 Completed Comprehensive Metabolic Panel Stat Lab 12/13/24 16:11 Completed Drug Screen,Urine Stat Lab 12/13/24 15:17 Completed LDH (Lactate Dehydrogenase) Stat Lab 12/13/24 16:11 Completed Lactic Acid [Lactate (Lactic Acid)] Stat Lab 12/13/24 16:11 Completed Magnesium Stat Lab 12/13/24 16:11 Completed Partial Thromboplastin Time Stat Lab 12/13/24 16:11 Completed Procalcitonin Stat Lab 12/13/24 16:11 Completed Prothrombin Time with INR Stat Lab 12/13/24 16:11 Completed Troponin I Stat Lab 12/13/24 16:11 Completed Urinalysis Stat Lab 12/13/24 15:17 Completed ALBUTEROL RT 0.5ml [Proventil Rt 0.5ml] Med 12/13/24 17:12 Discontinued 10 mg INH X1 ONE Calcium Gluconate 10% Inj Med 12/13/24 17:12 Discontinued 1 gm IV X1 ONE Dextrose 50% Syr [D50w Syringe Abboject] Med 12/13/24 17:12 Discontinued 50 ml IVP X1 ONE Diazepam Inj [Valium Inj] Med 12/14/24 15:10 Discontinued 2 mg IVP X1 ONE Diazepam Inj [Valium Inj] Med 12/14/24 05:58 Discontinued 5 mg IM Q4HR PRN DiphenhydrAMINE INJ [Benadryl Inj] Med 12/14/24 01:19 Discontinued 25 mg IM X1 ONE HYDROcodone*/APAP 5/325 [[place] 5/325] Med 12/14/24 17:35 Discontinued 1 tab PO X1 ONE Haloperidol Lactate [Haldol Inj] Med 12/14/24 01:19 Discontinued 10 mg IM X1 ONE Insulin Regular Med 12/13/24 17:12 Discontinued 5 unit IV X1 ONE QUEtiapine FUMARATE [SEROquel] Med 12/14/24 09:00 Discontinued 100 mg PO BID QUEtiapine FUMARATE [SEROquel] Med 12/14/24 13:45 Discontinued 100 mg PO BID hydrALAZINE INJ [Apresoline Inj] Med 12/13/24 15:53 Discontinued 10 mg IVP X1 ONE Vital Signs Vital signs: Vital Signs Temperature 97.5 F 12/13/24 14:58 Pulse Rate 93 12/13/24 14:58 Respiratory Rate 17 12/13/24 14:58 Blood Pressure 139/87 H 12/13/24 14:58 Pulse Oximetry (%) 98 12/13/24 14:58 Oxygen Delivery Method Room Air 12/13/24 14:58 Discharge Plan Plan Patient Disposition: HOME (Self Care) Patient condition on transfer: Stable Prescriptions/Referrals Prescriptions/Med Rec: No Action amlodipine 5 mg tablet 10 mg PO DAILY Patient Comments: TAKE 1 TABLET BY MOUTH DAILY FOR BLOOD PRESSURE hydrocodone-acetaminophen 5-325 mg tablet 1 tab PO TID PRN (Reason: pain) Patient Comments: TAKE 1 TABLET BY MOUTH 3 TIMES A DAY NEEDED FOR PAIN ondansetron 4 mg tablet,disintegrating 4 mg PO Q8H PRN (Reason: nausea and vomiting) Patient Comments: DISSOLVE 1 TABLET ON TONGUE EVERY 8 HOURS NEEDED FOR NAUSEA AND VOMITING Rx Instructions: sublingual cyclobenzaprine 10 mg tablet 10 mg PO DAILY PRN (Reason: muscle spasm) insulin glargine [Mykeaglkatarzyna VillaltaPen U-100 Insulin] 100 unit/mL (3 mL) insulin pen 38 unit subcut QAM Novolin R Regular U100 Insulin 100 unit/mL solution 1 sliding scale dose subcut TIDWM Patient Comments: USE UP TO 30 UNITS MAX/ DAY PER SLIDING SCALE 3 TIMES A DAY albuterol sulfate 90 mcg/actuation HFA aerosol inhaler 2 puff INHALATION .4-6 hours PRN (Reason: shortness of breath or wheezing) Patient Comments: USE ONE TO TWO INHALATIONS BY MOUTH EVERY 4-6 HOURS NEEDED FOR ASTHMA hydrocodone-acetaminophen 5-325 mg tablet 1 tab PO Q6H PRN (Reason: pain) tramadol 50 mg tablet 50 mg PO Q6H PRN (Reason: pain) Patient Comments: TAKE 1 TABLET BY MOUTH EVERY 6 TO 8 HOURS NEEDED FOR PAIN FOR 10 DAYS silver sulfadiazine 1 % cream 1 applic TOPICAL BID Patient Comments: 1 APPLICATION TOPICALLY TO OPEN BLISTERS TWICE A DAY 30 DAYS Rx Instructions: left inner upper arm, near AV fistula sevelamer carbonate 2.4 gram powder in packet 2.4 g PO TID Patient Comments: TAKE 1 PACKET BY MOUTH 3 TIMES A DAY Referrals: Bernadette Ahmadi MD [Referring Provider] - 12/16/24 9:00 am (Please follow up with Dr. Ahmadi on at 09:00 AM. ) Khadijah Veronica PA-C [Primary Care Provider] - In 1 week Problem List Clinical Impression: Cervical discitis, Cervical spinal stenosis Patient/Caregiver Discharge Instructions Education Materials: Cervical Disk Problems, Self Care Back Day Print Language: Georgian Stand Alone Forms: Hannah Award Info., Patient Portal Info Letter MDM Clinical Information Provided by patient and EMS [facility] Meds/Rx Considered, not Ordered None Labs/Rad/Tests considered, not Ordered None EKG EKG Interpretation narrative: EKG performed at 1549 shows a ventricular of 92 PA interval 161 QRS is 102 QTc is [address] segment. Lab Interpretation Lab(s) interpretation(s): CBC shows a mild leukocytosis of 11.7 no anemia Coags within acceptable limits CMP shows sodium 133 potassium of 6.9 chloride of 97 CO2 of 17.4 gap of 19 BUN of 47 creatinine 9.6 GFR of 5 glucose of 89 Lactic acid of 1.1 calcium 9.6 ALT of 8 AST of 15 alk phos of 134 ammonia less than 10 LDH 344 BNP of 321 Urine shows 3+ protein pH of 8.0 urine glucose 2+ ketones at 1+ no leukocyte esterases WBCs at 13 U-Tox is positive for opiates and marijuana. Imaging Provider imaging interpretation(s): CT of the head is interpreted by radiology shows no acute finding right emergent immediate intervention Chest x-ray is negative. Medication Administration(s) Medication Administration History Discontinued Medications Hydrocodone Bitart/Acetaminophen (Hydrocodone/Apap 5/325 Tablet) 1 tab PO X1 ONE Stop: 12/14/24 17:36 Last Admin: 12/14/24 17:44 Dose: 1 tab Documented By: EF Albuterol (Albuterol Rt 2.5 Mg/0.5 Ml Nebu) 10 mg INH X1 ONE Stop: 12/13/24 17:13 Last Admin: 12/13/24 18:21 Dose: Not Given Documented By: TARIQ Non-Admin Reason: Discontinued Calcium Gluconate (Calcium Gluconate 10% Inj 1 Gm/10 Ml Vial) 1 gm IV X1 ONE Stop: 12/13/24 17:13 Last Admin: 12/13/24 17:40 Dose: 1 gm Documented By: TARIQ Comments: GIVEN VIA 20G R WRIST IV PUSH OVER 3 MINUTES Dextrose (Dextrose 50%-Water Inj 50 Ml Syringe) 50 ml IVP X1 ONE Stop: 12/13/24 17:13 Last Admin: 12/13/24 18:21 Dose: Not Given Documented By: TARIQ Non-Admin Reason: Discontinued Diazepam (Diazepam Inj 5 Mg/Ml Vial 2 Ml) 5 mg IM Q4HR PRN PRN Reason: ANXIETY Stop: 12/19/24 05:57 Last Admin: 12/14/24 14:45 Dose: 5 mg Documented By: MAURICE Diazepam (Diazepam Inj 5 Mg/Ml Vial 2 Ml) 2 mg IVP X1 ONE Stop: 12/14/24 15:11 Last Admin: 12/14/24 15:21 Dose: Not Given Documented By: MAURICE Non-Admin Reason: Cancelled by Provider Diphenhydramine HCl (Diphenhydramine Inj 50 Mg/Ml Vial) 25 mg IM X1 ONE Stop: 12/14/24 01:20 Last Admin: 12/14/24 01:38 Dose: 25 mg Documented By: ELIF Haloperidol Lactate (Haloperidol Lact Inj 5 Mg/Ml Vial) 10 mg IM X1 ONE Stop: 12/14/24 01:20 Last Admin: 12/14/24 01:38 Dose: 10 mg Documented By: ELIF Hydralazine HCl (Hydralazine Inj 20 Mg/Ml Vial) 10 mg IVP X1 ONE Stop: 12/13/24 15:54 Last Admin: 12/13/24 16:21 Dose: 10 mg Documented By: TARIQ Insulin Human Regular (Insulin Hum Regular 1 Unit/0.01 Ml (Per Unit)) 5 unit IV X1 ONE Stop: 12/13/24 17:13 Last Admin: 12/13/24 18:21 Dose: Not Given Documented By: TARIQ Non-Admin Reason: Discontinued Quetiapine Fumarate (Quetiapine Fumarate 25 Mg Tablet) 100 mg PO BID [facility] Stop: 01/13/25 08:59 Last Admin: 12/14/24 14:46 Dose: Not Given Documented By: EF Non-Admin Reason: Duplicate Medication on eMAR Quetiapine Fumarate (Quetiapine Fumarate 100 Mg Tablet) 100 mg PO BID [facility] Stop: 01/13/25 13:44 Last Admin: 12/14/24 13:39 Dose: 100 mg Documented By: EF
[2024-12-13 16:16] LABS: Bacteria,Urine Rare; Bilirubin,Urine Negative (Negative); Blood,Urine Negative (Negative); Clarity,Urine Clear (Clear/Hazy); Collection Type, Urine Clean Catch; Color,Urine Lt-Yellow (Lt Yel-Yel); Glucose, Urine 2+ (Negative); Ketones,Urine 1+ (Negative); Leukocyte Esterase,Urine Negative (Negative); Nitrite,Urine Negative (Negative); PH,Urine 8.0 (5.0-7.0); Protein,Urine 3+ (Neg - Trace); RBC,Urine 4 /hpf (0-3); Specific Gravity,Urine 1.013 (1.001-1.035); Squamous Epithelial Cell,Urine 5 /hpf (0-5); Urobilinogen,Urine Negative mg/dL (0.0-1.0); WBC,Urine 13 /hpf (0-5)
[2024-12-13 16:21] LABS: Lactate (Lactic Acid) 1.1 mMol/L (0.4-2.0)
[2024-12-13] MEDS: hydrALAZINE INJ 20 MG/ML VIAL 10 MG IVP (16:21)
[2024-12-13 16:22] LABS: Basophils # (Auto) 0.1 Thou/mm3 (0.0-0.2); Basophils % (Auto) 1 % (0-2.5); Eosinophils # (Auto) 0.2 Thou/mm3 (0.0-0.5); Eosinophils % (Auto) 1 % (0-10); Hematocrit 40.0 % (36.0-46.0); Hemoglobin 12.6 g/dL (12.0-16.0); Immature Granulocytes Auto 0.04 Thou/mm3 (0.00-0.00); Lymphocytes # (Auto) 1.8 Thou/mm3 (1.0-4.8); Lymphocytes % (Auto) 15 % (10-50); Mean Corpuscular HGB Conc 31.5 g/dl (31.0-37.0); Mean Corpuscular Hemoglobin 26.4 pg (25.0-35.0); Mean Corpuscular Volume 84 fL (80-100); Monocytes # (Auto) 0.7 Thou/mm3 (0.0-0.8); Monocytes % (Auto) 6 % (0-12); Neutrophils # (Auto) 8.9 Thou/mm3 (1.8-7.7); Neutrophils % (Auto) 76 % (37-80); Nucleated Red Blood Cell # 0.00 Thou/mm3 (0.00-0.00); Nucleated Red Blood Cell % 0 /100 WBC (0); Platelet Count 332 Thou/mm3 (140-440); RDW Standard Deviation 55.4 fL (36.4-46.3); Red Blood Count 4.77 Miln/mm3 (4.00-5.20); White Blood Count 11.7 Thou/mm3 (3.6-11.0)
[2024-12-13 16:30] LABS: Amphetamine/Methamp Scrn,U Negative (Negative); Barbiturate Screen,Urine Negative (Negative); Benzodiazepines Screen,Urine Negative (Negative); Benzoylecgonine Screen, Ur Negative (Negative); Fentanyl Screen,Urine Negative (Negative); Opiate Screen,Urine Positive (Negative); THC Screen,Urine Positive (Negative)
[2024-12-13 16:42] LABS: INR 1.0 (0.9-1.3); Partial Thromboplastin Time 26.4 Seconds (22.0-36.0); Prothrombin Time 11.2 Seconds (9.0-12.2)
[2024-12-13 16:46] LABS: B-Type Natriuretic Peptide 321 pg/mL (0-100)
[2024-12-13 16:52] LABS: Ammonia < 10 uMol/L (11-32)
[2024-12-13 17:07] LABS: Alanine Aminotransferase 8 U/L (10-49); Albumin, Serum 4.2 gm/dL (3.5-5.0); Albumin/Globulin Ratio 1.2 (1.2-2.2); Alkaline Phosphatase 134 U/L (46-116); Anion Gap 19 (7-16); Aspartate Amino Transferase 15 U/L (0-34); BUN/Creatinine Ratio 5 Ratio (12-20); Bilirubin,Total 0.6 mg/dL (0.3-1.2); Blood Urea Nitrogen 47 mg/dL (9-23); Calcium 9.6 mg/dL (8.3-10.6); Calcium (Corrected) 9.6 mg/dL (8.5-10.1); Carbon Dioxide 17.4 mMol/L (20.0-31.0); Chloride 97 mMol/L (98-107); Creatinine (Component) 9.6 mg/dL (0.6-1.3); Estimated Creatinine Clearance 6.5 mL/min (>60); Globulin 3.6 gm/dL (2.3-3.5); Glucose 89 mg/dL (74-106); LDH (Lactate Dehydrogenase) 344 U/L (120-246); Magnesium 2.2 mg/dL (1.6-2.6); Osmolality,Calculated 277 (275-295); Procalcitonin 0.21 ng/ml (0.0-0.49); Sodium 133 mMol/L (136-145); Total Protein 7.8 gm/dL (5.7-8.2); Troponin I 0.022 ng/mL (0.0-0.045); eGFR 5 See Note
[2024-12-13 17:09] LABS: Potassium 6.9 mMol/L (3.4-5.1)
[2024-12-13] MEDS: CALCIUM GLUCONATE 10% INJ 1 GM/10 ML VIAL IV (17:40)
--- NOTE | 2024-12-13 18:04 | XR_ITS ---
Examination: CT cervical spine without contrast 2-D sagittal reconstructions 2-D coronal reconstructions 3-D reconstructions. Exam date and time:December 14, 2024, 0231 hours INDICATIONS: Ground-level fall today with injury to the neck, neck pain CTDI:vol (mGy) 15.5. DLP: (mGycm) 330. Technique: Multiple 2 mm axial sections of the cervical spine have been obtained. The coronal and sagittal reconstructions have been obtained. 3-D reconstructions have been obtained. Low dose protocols were performed. One or more of the following dose reduction techniques were used; automated exposure control, adjustment of the mA and/or KV according to patient size, use of iterative reconstruction technique. Findings: Worsening cortical bone destruction involving the C5 and C6 vertebral bodies with retrodisplacement of C5 relative to C6 at least 7 mm causing spinal stenosis Odontoid intact No cervical disc narrowing above or below this C5-C6 level IMPRESSION: Worsening bone destruction involving C5 and C6 compared to the MRI cervical spine November 20, 2024, most consistent with osteomyelitis discitis, recommend neurosurgical consultation
--- NOTE | 2024-12-13 18:21 | PC.NURSE ---
KATHY PROCESS DEVELOPMENT TECHNICIAN TAKING PT AT THIS TIME FOR EMERGENT DIALYSIS. PER ROSALVA BAKER, DON'T GIVE ORDERED MEDS AT THIS TIME; PT TO BE TAKEN TO DIALYSIS RIGHT AWAY.
--- NOTE | 2024-12-13 22:38 | PC.NURSE ---
Dialysis completed for 3 hrs. Able to removed 1.75 L of fluid net. Post tx BP 121/74, HR 103, Temp 97.8, O2 sat 98% RA. Pressure dressing on left upper arm AV fistula clean, dry and, intac. Please remove pressure dressing at around 0100 AM. Pt back in ER #[id number]. Report given to Lauro BAKER.
--- NOTE | 2024-12-13 23:05 | EDNOTE_ITS ---
Emergency Room Addendum Addendum Narrative: 2300: Care assumed from Lauro Fonseca NP. Past medical, surgical, social and family history reviewed. Vitals and home medications reviewed. Results and treatment plan discussed. I will assume the care of the patient at this time and will follow the patient, pending CT cervical spine. Please refer to the emergency department record for history and examination from initial visit. Patient presented with hyperkalemia after having missed several runs of dialysis. Patient received dialysis with resolution of hyperkalemia. 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 Review of EMR indicated patient was transferred to [facility] after MRI done on 11/20/24 showed abnormal enhancement and signal changes of the entire C5-C6 vertebral bodies with posterior epidural enhancement (up to 4 mm) indenting the ventral spinal cord and was prescribed PICC line therapy for 3 weeks. According to initial provider, PICC line was dislodged and there's a question if the patient received PICC li ne. Patient appeared to be altered compared to baseline. Lab parameters demonstrate equivocal UTI. Tox screen positive for opiates and marijuana. Patient did require rapid tranquilization after becoming agitated/aggressive. CT cervical spine obtained that shows evidence of compression fracture, osteomyelitis, and mild cord compression. Patient neurologically intact without focal motor deficits. Given potential interval change of cervical spine findings, an MRI will be obtained for comparative measures. Patient signed out to AM provider for MRI. RADIOLOGY RESULTS: Telerad Preliminary Report Draft Patient: ELVIA FLORES [facility]. Record#: [id number] Birthdate: 1980 Age/Sex: 44 / F Location: [facility] Attending Dr: Ordering Physician: Date of Service: Procedure(s): Accession Number(s): cc: ~ CT scan of the cervical spine without intravenous contrast (axial sections with sagittal and coronal reformats) December 14, 2024 0231 hours Clinical History: Recent hx of cervical osteo (dialysis pt no con). Comparison: None available at the time of this report. Findings: Lytic changes at the inferior endplate of C5 and superior endplate of C6. Questionable acute compression fractures of the C5 and C6. Retropulsion of the vertebral body of C5 associated with spinal canal stenosis measuring 0.9 cm Right neuroforaminal stenosis at C5-C6. Vascular calcifications. Impression: 1. Lytic changes at the inferior endplate of C5 and superior endplate of C6, suspicious for osteomyelitis. Consider correlation with nuclear medicine radiolabeled white blood cell study. 2. Questionable acute compression fractures of the C5 and C6. 3. Retropulsion of the vertebral body of C5 associated with spinal canal stenosis measuring 0.9 cm. Spinal surgery consult is recommended. 4. Right neuroforaminal stenosis at C5-C6. Correlation with MRI should be considered. Discussion Details: Results verbally communicated to : Dr. Stack at 03:01 AM 12/14/2024 Report Electronically Signed By: Nicolás Perez 12/14/2024 3:17:53 AM [EST]
[2024-12-13 23:23] LABS: Alanine Aminotransferase 10 U/L (10-49); Albumin, Serum 4.2 gm/dL (3.5-5.0); Albumin/Globulin Ratio 1.2 (1.2-2.2); Alkaline Phosphatase 132 U/L (46-116); Anion Gap 15 (7-16); Aspartate Amino Transferase 20 U/L (0-34); BUN/Creatinine Ratio 5 Ratio (12-20); Bilirubin,Total 1.0 mg/dL (0.3-1.2); Blood Urea Nitrogen 27 mg/dL (9-23); Calcium 9.6 mg/dL (8.3-10.6); Calcium (Corrected) 9.6 mg/dL (8.5-10.1); Carbon Dioxide 25.7 mMol/L (20.0-31.0); Chloride 98 mMol/L (98-107); Creatinine (Component) 5.6 mg/dL (0.6-1.3); Estimated Creatinine Clearance 11.1 mL/min (>60); Globulin 3.4 gm/dL (2.3-3.5); Glucose 85 mg/dL (74-106); Osmolality,Calculated 281 (275-295); Potassium 4.9 mMol/L (3.4-5.1); Sodium 139 mMol/L (136-145); Total Protein 7.6 gm/dL (5.7-8.2); eGFR 9 See Note
[2024-12-14] VITALS (15 sets, daily range): BP systolic 132–174; BP diastolic 82–113; PULSE 99–112; RESP 6–23; TEMP 36.4–37.4; O2SAT 94–99
--- NOTE | 2024-12-14 | XR_ITS ---
Examination: MRI cervical spine without intravenous contrast Date and time of exam: December 14, 2024 1413 hours Comparison November 20, 2024 Technique: Continual patient motion severely degrades scan image quality, multiple axial sagittal MR cervical spine images FINDINGS: Abnormal signal replaces the C5-C6 vertebral bodies and intervening disc There is retropulsion of the C5 vertebral body which is indenting the anterior margin of the cervical cord, axial image 6 producing significant spinal stenosis The cord is diffusely increased in signal which may be a function of the technique IMPRESSION: All of the images are severely degraded by patient motion Osteomyelitis discitis at the C5-C6 level Severe spinal stenosis C5-C6 level, axial image 6, retropulsion of the C5 vertebral body at least 6 mm indenting the anterior margin of the cervical cord, recommend neurosurgical assessment
--- NOTE | 2024-12-14 01:30 | PC.NURSE ---
pt very restless and somwhat and with repeats over and over help me pt does not say what she needs. I continue to respond and reassure pt. MD aware and pt medicated. continue to reposition pt and provide comfort when possible.
[2024-12-14] MEDS: HALOPERIDOL LACT INJ 5 MG/ML VIAL 10 MG IM (01:38)
--- NOTE | 2024-12-14 03:18 | PRELIM_ITS ---
CT scan of the cervical spine without intravenous contrast (axial sections with sagittal and coronal reformats) December 14, 2024 0231 hours Clinical History: Recent hx of cervical osteo (dialysis pt no con). Comparison: None available at the time of this report. Findings: Lytic changes at the inferior endplate of C5 and superior endplate of C6. Questionable acute compression fractures of the C5 and C6. Retropulsion of the vertebral body of C5 associated with spinal canal stenosis measuring 0.9 cm Right neuroforaminal stenosis at C5-C6. Vascular calcifications. Impression: 1. Lytic changes at the inferior endplate of C5 and superior endplate of C6, suspicious for osteomyelitis. Consider correlation with nuclear medicine radiolabeled white blood cell study. 2. Questionable acute compression fractures of the C5 and C6. 3. Retropulsion of the vertebral body of C5 associated with spinal canal stenosis measuring 0.9 cm. Spinal surgery consult is recommended. 4. Right neuroforaminal stenosis at C5-C6. Correlation with MRI should be considered. Discussion Details: Results verbally communicated to : Dr. Stack at 03:01 AM 12/14/2024 Report Electronically Signed By: Nicolás Perez 12/14/2024 3:17:53 AM [EST]
--- NOTE | 2024-12-14 03:28 | PC.NURSE ---
Per ED MD, hard Collar placed on pt.
--- NOTE | 2024-12-14 06:26 | PC.NURSE ---
pt incontinent of large formed brown stool. pt cleaned and changed. pt much less restless since meds given last evening. pt will not leaved collar on.
--- NOTE | 2024-12-14 08:02 | PD.EDADDENDU ---
Emergency Room Addendum <Anahy Simons - Last Filed: 12/14/24 17:49> Addendum Narrative: 0600h: Care assumed from Dr. Hernandez, the previous shift emergency physician. Past medical, surgical, social and family history reviewed. Vitals and home medications reviewed. I will assume the care of the patient at this time, pending MRI and final disposition. Please refer to the emergency department record for history and examination from initial visit.?The following addendum documentation note is intended to reflect any pending information, findings, or radiology results not included in the patient?s initial chart. 1625h: MRI has resulted showing osteomyelitis discitis at the C5-C6 level. Transfer nurse made aware of transfer request. Patient has received antibiotics during dialysis and at home since she was discovered to have discitis. We are consulting with neurosurgery due to retropulsion findings. 1730h: Spoke with transfer nurse at [facility] in [place]. States she will present the case to neurosurgery and call back. RADIOLOGY Ordering Physician: Zach Hernandez DO Date of Service: 12/14/24 Procedure(s): MR cervical spine wo con Accession Number(s): [id number] cc: Zach Hernandez DO; Julien Hernandez MD; Khadijah Veronica PA-C~ Examination: MRI cervical spine without intravenous contrast Date and time of exam: December 14, 2024 1413 hours Comparison November 20, 2024 Technique: Continual patient motion severely degrades scan image quality, multiple axial sagittal MR cervical spine images FINDINGS: Abnormal signal replaces the C5-C6 vertebral bodies and intervening disc There is retropulsion of the C5 vertebral body which is indenting the anterior margin of the cervical cord, axial image 6 producing significant spinal stenosis The cord is diffusely increased in signal which may be a function of the technique IMPRESSION: All of the images are severely degraded by patient motion Osteomyelitis discitis at the C5-C6 level Severe spinal stenosis C5-C6 level, axial image 6, retropulsion of the C5 vertebral body at least 6 mm indenting the anterior margin of the cervical cord, recommend neurosurgical assessment Dictated By: Julien Hernandez MD Signed By: <Electronically signed by Julien Hernandez MD in OV>12/14/24 1536 <Kirstie Younger MD - Last Filed: 12/14/24 17:51> Addendum Narrative: 0600h: Care assumed from Dr. Hernandez, the previous shift emergency physician. Past medical, surgical, social and family history reviewed. Vitals and home medications reviewed. I will assume the care of the patient at this time, pending MRI and final disposition. Please refer to the emergency department record for history and examination from initial visit.?The following addendum documentation note is intended to reflect any pending information, findings, or radiology results not included in the patient?s initial chart. 1625h: MRI has resulted showing osteomyelitis discitis at the C5-C6 level. Transfer nurse made aware of transfer request. Patient has received antibiotics during dialysis and at home since she was discovered to have discitis. We are consulting with neurosurgery due to retropulsion findings. 1730h: Spoke with transfer nurse at [facility] in [place]. States she will present the case to neurosurgery and call back. 1740h: Spoke with Dr. Howard neurosurgery at [facility].-Discussed results of MRI C-spine. No indication for transfer at this time. Can be managed outpatient in office. Recommends placement of hard c-collar, pain management for home, to follow-up with him in office at 9 AM on . Okay for discharge. RADIOLOGY Ordering Physician: Zach Hernandez DO Date of Service: 12/14/24 Procedure(s): MR cervical spine wo con Accession Number(s): [id number] cc: Zach Hernandez DO; Julien Hernandez MD; Khadijah Veronica PA-C~ Examination: MRI cervical spine without intravenous contrast Date and time of exam: December 14, 2024 1413 hours Comparison November 20, 2024 Technique: Continual patient motion severely degrades scan image quality, multiple axial sagittal MR cervical spine images FINDINGS: Abnormal signal replaces the C5-C6 vertebral bodies and intervening disc There is retropulsion of the C5 vertebral body which is indenting the anterior margin of the cervical cord, axial image 6 producing significant spinal stenosis The cord is diffusely increased in signal which may be a function of the technique
[2024-12-14] MEDS: DIAZEPAM INJ 5 MG/ML VIAL 2 ML IM (14:45)
--- NOTE | 2024-12-14 15:12 | PC.NURSE ---
Diane from MRI called and states patient moving around in MRI, Blake ROMERO gave medications per md order, however, patient continuing to move around, per Diane wants to change MRI to without contrast do to patient's movement. Dr. Bhupendra Younger made aware and states to not change order, Dr. Younger wants exam with iv contrast and she will order an additonal dose of valium via iv, NICK Lozano made aware.
--- NOTE | 2024-12-14 15:20 | PC.NURSE ---
Patient's Creatinine on labs 5.6, per Dr. Aren blackburn to do MRI without contrast, tech in MRI made aware.
--- NOTE | 2024-12-14 17:28 | PC.CM ---
Addendum entered by Vanessa Krishnamurthy RN 12/14/24 18:24: I called [facility] to follow up on transfer request. I spoke to another transfer nurse who states Lili is still working on the transfer and she will get back to us. Packet started and CD made. Addendum entered by Vanessa Krishnamurthy RN 12/14/24 17:36: 1730 Dr. Younger spoke with the transfer nurse at [facility] in [place]. They were going to reach out neurosurgery and get back to us. Original Note: 1700 I provided [facility] the number to call and speak to Dr. Younger. 1650 I called [facility] and I spoke to the transfer nurse Lili. I pushed over images and I faxed over paperwork. 1635 Patient needs transfer to [facility] for osteomyelitis discitis at the C5-C6 level. Patient previously had been sent to [facility] with similar DX. I started packet.
[2024-12-14] MEDS: HYDROcodone/APAP 5/325 TABLET 1 TAB PO (17:44)
--- NOTE | 2024-12-14 19:05 | PC.CC ---
ASW received a call from pts son who reported he will come get the pt in about one hour (which would be 2029). Pts son Jack Bajwa, son, reported the barrier is finding place for the pt as she is homeless. However, the pts son stated he will deal with this issue once the pt is discharged. Pts son can be reached at [phone]. Pts aunt mavis can be reached at [phone].
== END 2024-12-14 20:24 | disposition home or self-care (01) ==
PROVIDERS: Registered Nurse General Practice; Emergency Provider Family Medicine; PCP Physician Assistant
DX: E87.5 Hyperkalemia (principal); M46.42 Discitis, unspecified, cervical region; M48.02 Spinal stenosis, cervical region; M46.22 Osteomyelitis of vertebra, cervical region; G95.20 Unspecified cord compression; M48.52XA Collapsed vertebra, not elsewhere classified, cervical region, initial encounter for fracture; S00.12XA Contusion of left eyelid and periocular area, initial encounter; N39.0 Urinary tract infection, site not specified; E78.00 Pure hypercholesterolemia, unspecified; I12.0 Hypertensive chronic kidney disease with stage 5 chronic kidney disease or end stage renal disease; N18.6 End stage renal disease; Z99.2 Dependence on renal dialysis; Z91.158 Patient's noncompliance with renal dialysis for other reason; Z78.1 Physical restraint status; Z89.512 Acquired absence of left leg below knee; Z79.4 Long term (current) use of insulin; Z79.899 Other long term (current) drug therapy; Z88.0 Allergy status to penicillin; Z88.8 Allergy status to other drugs, medicaments and biological substances; Z91.018 Allergy to other foods; W19.XXXA Unspecified fall, initial encounter
CPT/HCPCS: 36415; 70450; 71045; 72125; 72141; 80053; 80307; 81001; 82140; 83605; 83615; 83735; 83880; 84145; 84484; 85025; 85610; 85730; 90935; 93005; 96372; 96374; 99284; J0360; J0612; J1200; J1630; J3360; A9270; G0257

== ENCOUNTER 2024-12-16 18:08 | Emergency (ER) | payer MEDICAID, SELFPAY ==
[2024-12-16 18:50] VITALS: BP 162/96; PULSE 96; RESP 18; TEMP 37.2; O2SAT 96; BMI 31.6
[2024-12-16] MEDS: CEFTRIAXONE 2000 MG IM (19:42)
[2024-12-16] MEDS: LIDOCAINE 1% IM (19:42)
--- NOTE | 2024-12-16 20:33 | EDNOTE_ITS ---
ED Neck Injury Pain RME/HPI General Chief Complaint: Skin/Abscess/Foreign Body Stated Complaint: Abscess to the spine, needs PICC line Time Seen by Provider: 12/16/24 19:05 Arrival date/time: 12/16/24 18:08 44F with extensive PMH including recent diagnosis of vertebral discitis presents to ED needing PICC line because patient claims one of the RNs from last visit here 2 days ago, removed it. When home health came to give her daily Vanc + Rocephin, she realized she didn't have a PICC line. She got her Vanc dose at dialysis today, but needs her Rocephin. Limitations: no limitations Related Data Home Medications ?Medication ?Instructions ?Recorded ?Confirmed amlodipine 5 mg tablet 10 mg PO DAILY 05/18/2411/03 sevelamer carbonate 2.4 gram oral 2.4 g PO TID 5 11/27/24 powder packet silver sulfadiazine 1 % topical 1 applic topical BID 0 11/17/24 11/27/24 cream tramadol 50 mg tablet 50 mg PO Q6H PRN pain 11/27/24 albuterol sulfate 90 mcg/actuation 2 puff inhalation . 4-6 hours PRN 11/27/24 11/27/24 aerosol inhaler shortness of breath or wheez ing cyclobenzaprine 10 mg tablet 10 mg PO DAILY PRN muscle spasm 11/27/24 11/27/24 hydrocodone 5 mg-acetaminophen 325 1 tab PO Q6H PRN pa in 11/27/24 11/27/24 mg tablet hydrocodone 5 mg-acetaminophen 325 1 tab PO TID PRN pa in 11/27/24 11/27/24 mg tablet insulin glargine 100 unit/mL (3 38 unit subcut QAM 11/27/24 mL) subcutaneous pen (Basaglar KwikPen U-100 Insulin) insulin regular human 100 unit/mL 1 sliding scale dose subcut TIDWM 11/27/24 11/27/24 injection solution (Novolin R Regular U-100 Insulin) ondansetron 4 mg disintegrating 4 mg PO Q8H PRN nausea and vomiting 11/27/24 11/27/24 tablet Allergies Allergy/AdvReac Type Severity Reaction Status Date / Time amoxicillin (From Augmentin) Allergy Severe Swelling Verified 12/16/24 18:12 of Lip/Tongue/Throat clavulanic acid (From Allergy Severe Swelling Verified 12/16/24 18:12 Augmentin) of Lip/Tongue/Throat mushroom AdvReac Intermediate Nausea Verified 12/16/24 18:12 Review of Systems Review of Systems Systems Reviewed: All systems reviewed, normal except as documented Constitutional Constitutional: Reports system reviewed and no additional complaints, except as documented, Denies fever(s) and Denies headache(s) ENT Ears, Nose, Mouth, and Throat: Denies disequilibrium and Denies headache(s) Cardiovascular Cardiovascular: Reports system reviewed and no additional complaints, except as documented, Denies chest pain and Denies dyspnea Respiratory Respiratory: Reports system reviewed and no additional complaints, except as documented, Denies cough and Denies dyspnea Gastrointestinal Gastrointestinal: Reports system reviewed and no additional complaints, except as documented, Denies abdominal pain, Denies nausea and Denies vomiting Neurologic Neurologic: Reports system reviewed and no additional complaints, except as documented, Denies confusion, Denies disequilibrium and Denies headache(s) Psychiatric Psychiatric: Denies confusion Past Medical History Past Medical History NEUROLOGIC: Positive Seizures and Epilepsy; Negative Neurological Disorders, Cerebrovascular Accident, Transient Ischemic Attacks (TIA), Dementia, Alzheimer's Disease, Parkinson's Disease, Brain Tumor, Meningitis, Multiple Sclerosis, Cerebral Palsy, Amyotrophic Lateral Sclerosis (ALS/Autumn Gehrig's), Guillain-[place] Syndrome, Spina Bifida, Paralysis, Peripheral Neuropathy, Espino's Palsy, Subdural Hematoma, Migraine, Head Trauma, Spinal Cord Injury or Traumatic Brain Injury CARDIAC: Positive Hypercholesterolemia, Cellulitis, Hypertension and Hypotension; Negative Cardiac Disorders, Myocardial Infarction, Cardiac Arrhythmia, Atrial Fibrillation, Angina, Heart Murmur, Coronary Artery Disease, Atherosclerotic Heart Disease, Peripheral Vascular Disease, Aneurysm, Congestive Heart Failure, Congenital Heart Disease, Valvular Heart Disease, Rheumatic Fever, Cardiomyopathy, Edema, Pericarditis, Deep Vein Thrombosis or Varicose Veins RESPIRATORY: Positive Asthma and Pneumonia; Negative Chronic Obstructive Pulmonary Disease (COPD), Bronchitis, Emphysema, Pulmonary Fibrosis, Cystic Fibrosis, Tuberculosis, Pulmonary Embolism, Pulmonary Edema or Sleep Apnea GASTROINTESTINAL: Negative Gastrointestinal Disorders, Hepatitis, Cirrhosis, Pancreatitis, Celiac Disease, Gall Bladder Disease, Gastrointestinal Bleed, Esophageal Varices, Gastelum's Esophagus, Colitis, Ulcerative Colitis, Diverticulitis, Diverticulosis, Ulcer, Colorectal Cancer, Irritable Bowel, Crohn's Disease, Obstructive Bowel, Hiatal Hernia, Hemorrhoids, Gastroesophageal Reflux Disease or Obesity GENITOURINARY: Positive Renal Disease and Dialysis (Left AV fistula); Negative Genitourinary Disorders, Kidney Stones, Polycystic Kidney Disease, Neurogenic Bladder, Inguinal Hernia or Prostate Cancer REPRODUCTIVE: Positive Previous Pregnancies; Negative Breast Cancer, Endometriosis, Genital Herpes, Gonorrhea, Pelvic Inflammatory Disease, Syphilis, Testicular Cancer or Uterine Prolapse MUSCULOSKELETAL: Positive Osteomyelitis; Negative Musculoskeletal Disorders, Muscular Dystrophy, Myasthenia Gravis, Marfan's Syndrome, Bone Cancer, Arthritis, Rheumatoid Arthritis, Osteoporosis, Degenerative Disk Disease, Gout, Scoliosis, Carpal Tunnel Syndrome, Fibromyalgia, Fractures, Degenerative Joint Disease or Poliovirus 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); Negative Cataracts, Glaucoma, Macular Degeneration, Ear Infection, Deafness, Head Trauma or Eye Prosthesis ENDOCRINE: Positive Endocrine Disorders, Diabetes Mellitus Type 2 and Hypoglycemia; Negative Diabetes Mellitus Type 1, Alecia's Syndrome, [place]'s Disease, Hyperthyroidism, Hypothyroidism, Parathyroid Disease, Pituitary Disease, Systemic Lupus Erythematosus, Syndrome of Inappropriate Antidiuretic Hormone (SI ADH), Adrenal Disease or Graves' Disease HEMATOLOGIC: Positive Anemia; Negative Blood Disorders, Leukemia, Hemophilia, Thalassemia, Sickle Cell Disease or Clotting Problems PSYCHO/SOCIAL: Positive Anxiety; Negative Psychiatric Problems, Schizophrenia, Recreational Drug Use, Bipolar Disorder, Depression, Behavior Problems, Self-Mutilation, Attention Deficit Disorder, Attention Deficit Hyperactivity Disorder, Depression, Post Traumatic Stress Disorder or Eating Disorder OTHER HISTORY: Positive Hospitalization, Falls, Blood Transfusions and Chicken Pox (hx of shingles); Negative Autoimmune Disease, Down Syndrome, Autism, Developmental Delay, Shingles, Blood Transfusion Reaction, Anesthesia Reactions, Organ Transplant, Chemotherapy, Radiation Therapy, Hyperbaric Therapy, MRSA, VRSA, Vancomycin- Resistant Enterococci, Human Immunodeficiency Virus (HIV), Measles, Mumps, Rubella ([place]guillan Measles), Pertussis, Clostridium Difficile, Cancer, Breast Cancer, Cervical Cancer, Colorectal Cancer, Lung Cancer, Ovarian Cancer, Prostate Cancer or Testicular Cancer Family History FAMILY HISTORY: Positive Family Respiratory Disorders and Family Cardiac Disorders; Negative Family Psychiatric Problems, Family Gastrointestinal Problems, Family Cancer, Family Surgery or Family Anesthesia Reaction Surgical History SURGICAL: Positive Abdominal Surgery and Amputation (right 2nd toe, left BKA); Negative Cardiac Surgery, Open Heart Surgery, Coronary Artery Bypass Graft, Valve Replacement, Vascular Surgery, Coronary Stent, Cardiac Catheterization, Pacemaker, Angiogram, Auto Implanted Cardiovert Defib, Carotid Endarterectomy, Endocrine Surgery, Thyroidectomy, Ear Surgery, Tympanostomy Tube, Eye Surgery, Nose Surgery, Oral Surgery, Tonsillectomy, Adenoidectomy, Cochlear Implant, Corneal Transplant, Throat Surgery, Tracheostomy, Gastric Bypass Surgery, Gastrostomy, Bowel Surgery, Nephrectomy, Transurethral Resection, Joint Replacement, Open Reduction Internal Fixation, Arthroscopy, Neurologic Surgery, Brain Shunt, Mastectomy, Lumpectomy, Hysterectomy, Tubal Ligation, Section, Vasectomy or Organ Transplant Social History SMOKING STATUS: Never smoker SECOND HAND EXPOSURE: No SUBSTANCE USE: does not use ED Exam General Limitations: Present no limitations General appearance: Present alert and in no apparent distress Head Head exam: Present atraumatic Eye Eye exam: Present normal appearance, PERRL and EOMI ENT ENT exam: Present normal exam, normal oropharynx and mucous membranes moist Neck Neck exam: Present normal inspection, full ROM and trachea midline Chest Chest inspection: Present normal inspection and symmetric chest wall rise Respiratory Respiratory exam: Present normal lung sounds bilaterally Cardiovascular Cardiovascular exam: Present regular rate, normal rhythm and normal heart sounds Abdominal Exam Abdominal exam: Present soft and normal bowel sounds Extremities Exam Extremities exam: Present full ROM Expanded Upper Extremity Exam Elbow exam: Present other (L dialysis port; nothing on R arm area) Back Exam Back exam: Present normal inspection and full ROM Neurological Exam Neurological exam: Present alert, oriented X3 and CN II-XII intact Psychiatric Psychiatric exam: Present normal affect and normal mood Skin Skin exam: Present warm, dry, intact and normal color Course Quality Measures none Orders Category Date Time Status cefTRIAXone [Rocephin] 2,000 mg Med 12/16/24 19:09 Discontinued Lidocaine 1% 20 ml [Xylocaine 1% 20 ML] 4.2 ml IM X1 Vital Signs Vital signs: Vital Signs Temperature 99 F 12/16/24 18:50 Pulse Rate 96 12/16/24 18:50 Respiratory Rate 18 12/16/24 18:50 Blood Pressure 162/96 H 12/16/24 18:50 Pulse Oximetry (%) 96 12/16/24 18:50 Oxygen Delivery Method Room Air 12/16/24 18:50 O2 at 96% on RA and WNLs Neck Pain MDM Narrative MDM Narrative:: 44F with extensive PMH including recent diagnosis of vertebral discitis presents to ED needing PICC line because patient claims one of the RNs from last visit here 2 days ago, removed it. When home health came to give her daily Vanc + Rocephin, she realized she didn't have a PICC line. She got her Vanc dose at dialysis today, but needs her Rocephin. Physical exam reveals no PICC line anywhere. Dialysis port on LUE. Patient is afebrile, calm, and alert. Rocephin dose given. Counseled to return in AM for IR to do PICC line insertion. Patient data External records reviewed:: [facility] previous records Clinical information provided by:: patient Social determinants that could affect healthcare access:: none Patient has the following chronic illnesses:: vertebral discitis How is presenting disease/condition affected by chronic disease/condition?: caused by Evaluation data The following diagnostics were reviewed and interpreted by me:: other (specify) (none) Lab and/or radiology exams considered but not ordered:: not ordered Interpretation Summary: n/a Medications / Prescriptions Medications or Prescriptions considered but not ordered:: ordered Medication administrations:: Medication Administration History Discontinued Medications Ceftriaxone Sodium 2,000 mg/ (Lidocaine HCl 4.2 ml) 0 mg IM X1 ONE Stop: 12/16/24 19:10 Last Admin: 12/16/24 19:42 Dose: 2,000 mg Documented By: above Consultations Consultation(s) initiated? (list below): No Diagnosis Neck Differential Diagnosis: disc disorder of cervical region, whiplash injury to neck, closed subluxation of cervical spine, fracture of cervical spine without lesion of spinal cord, cervical radiculopathy, vertebral artery dissection, torticollis, cervical spondylosis, strain of neck muscle and other (vertebral discitis) Most likely diagnosis given after review of the tests above:: vertebral discitis Admission Indicated Admission indicated?: not indicated Admission Request Was there a request for admission?: No Disposition Plan Disposition Plan: Discharge Discharge Attestation Discharge Attestation: The patient and all family members were given an opportunity to ask questions and understood the discharge instructions. Discharge instructions specifically effects, indications for sooner follow up or return to the emergency department, and the expected course of current diagnosis. Patient condition: Stable Discharge Plan Plan Patient Disposition: HOME (Self Care) Discharge Disposition comment: Stable Prescriptions/Referrals Prescriptions/Med Rec: No Action amlodipine 5 mg tablet 10 mg PO DAILY Patient Comments: TAKE 1 TABLET BY MOUTH DAILY FOR BLOOD PRESSURE hydrocodone-acetaminophen 5-325 mg tablet 1 tab PO TID PRN (Reason: pain) Patient Comments: TAKE 1 TABLET BY MOUTH 3 TIMES A DAY NEEDED FOR PAIN ondansetron 4 mg tablet,disintegrating 4 mg PO Q8H PRN (Reason: nausea and vomiting) Patient Comments: DISSOLVE 1 TABLET ON TONGUE EVERY 8 HOURS NEEDED FOR NAUSEA AND VOMITING Rx Instructions: sublingual cyclobenzaprine 10 mg tablet 10 mg PO DAILY PRN (Reason: muscle spasm) insulin glargine [Basaglar KwikPen U-100 Insulin] 100 unit/mL (3 mL) insulin pen 38 unit subcut QAM Novolin R Regular U100 Insulin 100 unit/mL solution 1 sliding scale dose subcut TIDWM Patient Comments: USE UP TO 30 UNITS MAX/ DAY PER SLIDING SCALE 3 TIMES A DAY albuterol sulfate 90 mcg/actuation HFA aerosol inhaler 2 puff INHALATION .4-6 hours PRN (Reason: shortness of breath or wheezing) Patient Comments: USE ONE TO TWO INHALATIONS BY MOUTH EVERY 4-6 HOURS NEEDED FOR ASTHMA hydrocodone-acetaminophen 5-325 mg tablet 1 tab PO Q6H PRN (Reason: pain) tramadol 50 mg tablet 50 mg PO Q6H PRN (Reason: pain) Patient Comments: TAKE 1 TABLET BY MOUTH EVERY 6 TO 8 HOURS NEEDED FOR PAIN FOR 10 DAYS silver sulfadiazine 1 % cream 1 applic TOPICAL BID Patient Comments: 1 APPLICATION TOPICALLY TO OPEN BLISTERS TWICE A DAY 30 DAYS Rx Instructions: left inner upper arm, near AV fistula sevelamer carbonate 2.4 gram powder in packet 2.4 g PO TID Patient Comments: TAKE 1 PACKET BY MOUTH 3 TIMES A DAY Problem List Clinical Impression: Cervical discitis Patient/Caregiver Discharge Instructions Additional Instructions: Please follow-up with PCP within 24-48 hours and return immediately if symptoms worsen. Can back tomorrow around 8 AM to 1 PM to get PICC line done by IR. Print Language: Polish Stand Alone Forms: Patient Portal Info Letter PA/UNDERWATER PHOTOGRAPHER Supervising Physician ABRAHAM/UNDERWATER PHOTOGRAPHER Supervising Physician: Dr. Warren
== END 2024-12-16 20:42 | disposition home or self-care (01) ==
PROVIDERS: Emergency Provider Emergency Medicine; PCP Physician Assistant
DX: M46.42 Discitis, unspecified, cervical region (principal)
CPT/HCPCS: 96372; 99282; J0696; J3490

== ENCOUNTER 2024-12-17 08:21 | Emergency (ER) | payer MEDICAID, SELFPAY ==
--- NOTE | 2024-12-17 | XR_ITS ---
Examination: Ultrasound-guided needle placement right basilic vein. Dual-lumen central line placement (PICC line). Fluoroscopy AP chest, portable, single view Exam date and time:December 17, 2024, 1121 hours INDICATIONS: Need for long-term intravenous antibiotic therapy A timeout was completed verifying correct patient, procedure, site, positioning Informed consent provided Technique: The patient's site was prepped and draped in sterile fashion. Maximum Sterile Barrier Technique used including cap, mask, sterile gown, sterile gloves, and sterile full body drape. If ultrasound technique used: sterile gel and sterile probe covers. Hand Hygiene performed using proper scrub, soap and water, or alcohol-based hand rub. Site right portable apparatus utilized to confirm patency of the right internal jugular vein Utilizing ultrasonographic guidance successful 21-gauge needle puncture into the right internal jugular vein Ultrasound images recorded and stored. 5 cc 1% lidocaine administered for local anesthetic. Successful micropuncture with a 21-gauge needle is performed. 0.18 wire guide is then introduced into the SVC under fluoroscopic guidance. Dual-lumen catheter dilator is then introduced, followed by the catheter in the SVC and proper position under fluoroscopic guidance. Successful aspiration of blood and flushing with heparinized saline is then performed in the 2 venous limbs. The catheter sutured in place. Findings: Under fluoroscopy, the tip of the catheter is in good position in the vena cava. Portable chest x-ray, post line placement is ordered. Estimated blood loss 3 cc The patient tolerated the procedure well and was in stable and satisfactory condition at completion of the procedure Impression: Successful ultrasound-guided needle placement right internal jugular vein Successful placement of dual lumen central line, percutaneous Fluoroscopy 0.3 minute radiation dose 2.05 milligray 1 spot fluoroscopic chest film. AP chest completion procedure demonstrates satisfactory position central line. May use central line.
[2024-12-17 08:23] VITALS: BMI 29.5
[2024-12-17 08:39] VITALS: BP 185/105; PULSE 104; RESP 18; TEMP 36.7; O2SAT 98
--- NOTE | 2024-12-17 08:49 | PD.EDRME ---
Rapid Medical Screening Exam E Arrival date/time: 12/17/24 08:21 CC: Requesting a PICC line catheter HPI patient was discharged from here 2 days ago after lengthy stay regarding her altered mentation and her failure to make dialysis appointments. She was discharged after discussion with the neurosurgeon stated the patient continues to need IV antibiotics for the cervical osteomyelitis. Patient states she did not make her appointment yesterday December 16 with her neurosurgeon is now here to have PICC line placed and patient denies fever chills chest pain shortness of breath or difficulty breathing. Chief Complaint: General Adult/Misc Complain Time Seen by Provider: 12/17/24 08:43 Vital signs: Vital Signs Temperature 98.1 F 12/17/24 08:39 Pulse Rate 104 H 12/17/24 08:39 Respiratory Rate 18 12/17/24 08:39 Blood Pressure 185/105 H 12/17/24 08:39 Pulse Oximetry (%) 98 12/17/24 08:39 Oxygen Delivery Method Room Air 12/17/24 08:39
[2024-12-17 09:25] LABS: Basophils # (Auto) 0.1 Thou/mm3 (0.0-0.2); Basophils % (Auto) 1 % (0-2.5); Eosinophils # (Auto) 0.2 Thou/mm3 (0.0-0.5); Eosinophils % (Auto) 2 % (0-10); Hematocrit 35.6 % (36.0-46.0); Hemoglobin 11.1 g/dL (12.0-16.0); Immature Granulocytes Auto 0.04 Thou/mm3 (0.00-0.00); Lymphocytes # (Auto) 2.1 Thou/mm3 (1.0-4.8); Lymphocytes % (Auto) 20 % (10-50); Mean Corpuscular HGB Conc 31.2 g/dl (31.0-37.0); Mean Corpuscular Hemoglobin 25.6 pg (25.0-35.0); Mean Corpuscular Volume 82 fL (80-100); Monocytes # (Auto) 1.0 Thou/mm3 (0.0-0.8); Monocytes % (Auto) 9 % (0-12); Neutrophils # (Auto) 7.5 Thou/mm3 (1.8-7.7); Neutrophils % (Auto) 69 % (37-80); Nucleated Red Blood Cell # 0.00 Thou/mm3 (0.00-0.00); Nucleated Red Blood Cell % 0 /100 WBC (0); Platelet Count 381 Thou/mm3 (140-440); RDW Standard Deviation 54.7 fL (36.4-46.3); Red Blood Count 4.33 Miln/mm3 (4.00-5.20); White Blood Count 10.9 Thou/mm3 (3.6-11.0)
--- NOTE | 2024-12-17 09:26 | PC.NURSE ---
Patient from lobby and taken to room. Patient to er stating she needs PICC line insertion for iv antibiotics for discitis, Aren Ovalles at bedside speaking with patient,
--- NOTE | 2024-12-17 09:37 | PC.NURSE ---
Patient states she is suppose to have dialysis today at 1330
--- NOTE | 2024-12-17 09:44 | PD.EDADULT ---
ED General RME/HPI General Chief complaint: General Adult/Misc Complain Stated complaint: RETURNED FOR PICC COLE E PLACEMENT Time Seen by Provider: 12/17/24 08:43 Arrival date/time: 12/17/24 08:21 RME / HPI RME / HPI narrative: 12/17/24 08:21 CC: Requesting a PICC line catheter HPI patient was discharged from here 2 days ago after lengthy stay regarding her altered mentation and her failure to make dialysis appointments. She was discharged after discussion with the neurosurgeon stated the patient continues to need IV antibiotics for the cervical osteomyelitis. Patient states she did not make her appointment yesterday December 16 with her neurosurgeon is now here to have PICC line placed and patient denies fever chills chest pain shortness of breath or difficulty breathing. DR. ROSADO MAIN ED EVALUATION: 44-year-old female with a recent history of osteomyelitis discitis at the C5-C6 level presents to the Emergency Department for PICC line replacement after it fell out. She was previously seen on 12/13/2024, where an MRI confirmed the diagnosis of steomyelitis discitis at the C5-C6 level. Neurosurgery (Dr. Howard at [facility]) was consulted at that time, and outpatient follow-up was arranged for 12/16/2024; however, the patient reports she did not know she had to follow-up and did not attend. She was previously on antibiotics and has now restarted vancomycin as of Friday. She currently receives home health services, including physical therapy. No other symptoms reported at this time. Related Data Home Medications ?Medication ?Instructions ?Recorded ?Confirmed amlodipine 5 mg tablet 10 mg PO DAILY 05/18/24 11/27/24 sevelamer carbonate 2.4 gram oral 2.4 g PO TID 11/17/24 11/27/24 powder packet silver sulfadiazine 1 % topical 1 applic topical BID 11/17/24 11/27/24 cream tramadol 50 mg tablet 50 mg PO Q6H PRN pain 11/17/24 11/27/24 albuterol sulfate 90 mcg/actuation 2 puff inhalation .4-6 hours PRN 11/27/24 11/27/24 aerosol inhaler shortness of breath or wheezing cyclobenzaprine 10 mg tablet 10 mg PO DAILY PRN muscle spasm 11/27/24 11/27/24 hydrocodone 5 mg-acetaminophen 325 1 tab PO Q6H PRN pain 11/27/24 11/27/24 mg tablet hydrocodone 5 mg-acetaminophen 325 1 tab PO TID PRN pain 11/27/24 11/27/24 mg tablet insulin glargine 100 unit/mL (3 38 unit subcut QAM 11/27/24 11/27/24 mL) subcutaneous pen (Basaglar KwikPen U-100 Insulin) insulin regular human 100 unit/mL 1 sliding scale dose subcut TIDWM 11/27/24 11/27/24 injection solution (Novolin R Regular U-100 Insulin) ondansetron 4 mg disintegrating 4 mg PO Q8H PRN nausea and vomiting 11/27/24 11/27/24 tablet Allergies Allergy/AdvReac Type Severity Reaction Status Date / Time amoxicillin (From Augmentin) Allergy Severe Swelling Verified 12/17/24 08:22 of Lip/Tongue/Throat clavulanic acid (From Allergy Severe Swelling Verified 12/17/24 08:22 Augmentin) of Lip/Tongue/Throat mushroom AdvReac Intermediate Nausea Verified 12/17/24 08:22 Review of Systems Review of Systems Systems Reviewed: All systems reviewed, normal except as documented Past Medical History Past Medical History CARDIAC: Positive Hypercholesterolemia, Cellulitis, Hypertension and Hypotension RESPIRATORY: Positive Asthma and Pneumonia GENITOURINARY: Positive Renal Disease and Dialysis (3 times a week) REPRODUCTIVE: Positive Previous Pregnancies MUSCULOSKELETAL: Positive Osteomyelitis ENT: Positive Blind (right eye) ENDOCRINE: Positive Endocrine Disorders, Diabetes Mellitus Type 2 and Hypoglycemia HEMATOLOGIC: Positive Anemia PSYCHO/SOCIAL: Positive Anxiety OTHER HISTORY: Positive Hospitalization, Falls, Blood Transfusions and Chicken Pox Family History FAMILY HISTORY: Positive Family Respiratory Disorders and Family Cardiac Disorders Surgical History SURGICAL: Positive Abdominal Surgery and Amputation Social History SMOKING STATUS: Current some day smoker SECOND HAND EXPOSURE: No SUBSTANCE USE: does not use ED Exam Narrative Physical exam: Constitutional: Awake, alert, nontoxic, well-appearing, no acute distress, obese HEENT: NC, AT, EOMI Neck: Supple CV: Regular rate and rhythm Lungs: CTAB, no w/r/r, no respiratory distress. Abd: Soft, NT, ND, no HSM noted to palpation Extremities: left BKA, no edema noted Neuro: AAOx3, CN 2-12 GIBL, no acute neuro deficit noted. Skin: Warm, dry, intact Course Course Course Narrative: Patient had PICC line placed. No complications. Stable for discharge home. To proceed to her dialysis upon discharge and to follow-up with neurosurgery at [place] as previously recommended. Quality Measures none Orders Category Date Time Status May Access Central Line NOW Care 12/17/24 13:15 Ordered IR PICC line insertion Stat Exams 12/17/24 Completed CBC Stat Lab 12/17/24 09:16 Completed PT [Prothrombin Time with INR] Stat Lab 12/17/24 09:16 Completed PTT [Partial Thromboplastin Time] Stat Lab 12/17/24 09:16 Completed Heparin Sod Lock Syr [Hep-Lock 100 UNIT/ML SYR] Med 12/17/24 11:55 Discontinued 500 unit .ROUTE .STK-MED ONE Heparin Sod Lock Syr [Hep-Lock 100 UNIT/ML SYR] Med 12/17/24 12:15 Discontinued 500 unit STFIELD X1 ONE Lidocaine 1% Pf 30 ml [Xylocaine 1% Pf 30 ml] Med 12/17/24 11:55 Discontinued 30 ml .ROUTE .STK-MED ONE Lidocaine 1% Pf 30 ml [Xylocaine 1% Pf 30 ml] Med 12/17/24 12:15 Discontinued 30 ml INFL X1 ONE amLODIPine BESYLATE [Norvasc] Med 12/17/24 10:20 Discontinued 10 mg PO X1 ONE Vital Signs Vital signs: Vital Signs Temperature 98.1 F 12/17/24 08:39 Pulse Rate 104 H 12/17/24 08:39 Respiratory Rate 18 12/17/24 08:39 Blood Pressure 185/105 H 12/17/24 08:39 Pulse Oximetry (%) 98 12/17/24 08:39 Oxygen Delivery Method Room Air 12/17/24 08:39 Discharge Plan Plan Patient Disposition: HOME (Self Care) Prescriptions/Referrals Prescriptions/Med Rec: No Action amlodipine 5 mg tablet 10 mg PO DAILY Patient Comments: TAKE 1 TABLET BY MOUTH DAILY FOR BLOOD PRESSURE hydrocodone-acetaminophen 5-325 mg tablet 1 tab PO TID PRN (Reason: pain) Patient Comments: TAKE 1 TABLET BY MOUTH 3 TIMES A DAY NEEDED FOR PAIN ondansetron 4 mg tablet,disintegrating 4 mg PO Q8H PRN (Reason: nausea and vomiting) Patient Comments: DISSOLVE 1 TABLET ON TONGUE EVERY 8 HOURS NEEDED FOR NAUSEA AND VOMITING Rx Instructions: sublingual cyclobenzaprine 10 mg tablet 10 mg PO DAILY PRN (Reason: muscle spasm) insulin glargine [Basaglar KwikPen U-100 Insulin] 100 unit/mL (3 mL) insulin pen 38 unit subcut QAM Novolin R Regular U100 Insulin 100 unit/mL solution 1 sliding scale dose subcut TIDWM Patient Comments: USE UP TO 30 UNITS MAX/ DAY PER SLIDING SCALE 3 TIMES A DAY albuterol sulfate 90 mcg/actuation HFA aerosol inhaler 2 puff INHALATION .4-6 hours PRN (Reason: shortness of breath or wheezing) Patient Comments: USE ONE TO TWO INHALATIONS BY MOUTH EVERY 4-6 HOURS NEEDED FOR ASTHMA hydrocodone-acetaminophen 5-325 mg tablet 1 tab PO Q6H PRN (Reason: pain) tramadol 50 mg tablet 50 mg PO Q6H PRN (Reason: pain) Patient Comments: TAKE 1 TABLET BY MOUTH EVERY 6 TO 8 HOURS NEEDED FOR PAIN FOR 10 DAYS silver sulfadiazine 1 % cream 1 applic TOPICAL BID Patient Comments: 1 APPLICATION TOPICALLY TO OPEN BLISTERS TWICE A DAY 30 DAYS Rx Instructions: left inner upper arm, near AV fistula sevelamer carbonate 2.4 gram powder in packet 2.4 g PO TID Patient Comments: TAKE 1 PACKET BY MOUTH 3 TIMES A DAY Referrals: Khadijah Veronica PA-C [Primary Care Provider] - In 1 week Problem List Clinical Impression: Status post peripherally inserted central catheter (PICC) central line placement Patient/Caregiver Discharge Instructions Other Activity Instructions:: Diet as tolerated, activity as tolerated. Follow up with your Neurosurgeon as previously requested. Dr. Amarilis Ahmadi, [address] [place] [address] Diet Instructions: renal, diabetic diet Education Materials: Caring for Your PICC Dc Print Language: Malian Stand Alone Forms: Hannah Award Info., Patient Portal Info Letter MDM Narrative [facility] hospital course: I, Zaria Leon, am scribing for and in the presence of Dr. Rosado. Clinical Information Provided by patient Medical Records Reviewed [facility] Meds/Rx Considered, not Ordered None Labs/Rad/Tests considered, not Ordered None Chronic Illness/Social Conditions Add or document further as needed: osteomyelitis discitis at the C5-C6 level Lab Interpretation Labs: see narrative above Medication Administration(s) Medication Administration History Discontinued Medications Amlodipine Besylate (Amlodipine Besylate 5 Mg Tablet) 10 mg PO X1 ONE Stop: 12/17/24 10:21 Last Admin: 12/17/24 10:28 Dose: 10 mg Documented By: DYLAN Heparin Sodium (Beef Lung) (Heparin Sod Lock Syr 100 Unit/Ml) Confirm Administered Dose 500 unit .ROUTE .STK-MED ONE Stop: 12/17/24 11:56 Last Admin: 12/17/24 12:17 Dose: Not Given Documented By: EC Non-Admin Reason: Duplicate Medication on eMAR Heparin Sodium (Beef Lung) (Heparin Sod Lock Syr 100 Unit/Ml) 500 unit STFIELD X1 ONE Stop: 12/17/24 12:16 Last Admin: 12/17/24 12:15 Dose: 500 unit Documented By: EC Lidocaine HCl (Lidocaine Inj Pf 1% 30 Ml Vial) Confirm Administered Dose 30 ml .ROUTE .STK-MED ONE Stop: 12/17/24 11:56 Last Admin: 12/17/24 12:17 Dose: Not Given Documented By: EC Non-Admin Reason: Duplicate Medication on eMAR Lidocaine HCl (Lidocaine Inj Pf 1% 30 Ml Vial) 30 ml INFL X1 ONE Stop: 12/17/24 12:16 Last Admin: 12/17/24 12:15 Dose: 30 ml Documented By: EC Comments: PLACED ON STERILE FIELD Diagnosis Differential dx and/or dx ruled out: Osteomyelitis recurrence, discitis progression, and PICC line-associated bacteremia.
[2024-12-17 09:46] VITALS: BP 193/115; PULSE 98; RESP 18; TEMP 36.7; O2SAT 99
[2024-12-17 09:50] LABS: INR 1.0 (0.9-1.3); Partial Thromboplastin Time 29.9 Seconds (22.0-36.0); Prothrombin Time 11.4 Seconds (9.0-12.2)
--- NOTE | 2024-12-17 10:15 | PC.NURSE ---
Dr. Younger made aware, patients bp 193//115, new orders recieved,
[2024-12-17 10:28] VITALS: BP 193/115; PULSE 97
[2024-12-17 12:09] VITALS: BP 186/115; PULSE 96; RESP 22; O2SAT 96
[2024-12-17] MEDS: LIDOCAINE INJ PF 1% 30 ML VIAL INFL (12:15)
[2024-12-17] MEDS: HEPARIN SOD LOCK SYR 100 UNIT/ML 500 UNIT STFIELD (12:15)
--- NOTE | 2024-12-17 13:01 | PC.NURSE ---
Patient back from IR, report received from Iman RN, PICC line placed in right upper arm, 37in, patient tolerated procedural well pre procedure bp 186/115, ok to access PICC line now, Iman will send paperwork for patient to take with her upon d/c
== END 2024-12-17 14:15 | disposition home or self-care (01) ==
PROVIDERS: Registered Nurse General Practice; Emergency Provider Family Medicine; PCP Physician Assistant
DX: M46.22 Osteomyelitis of vertebra, cervical region (principal); M46.42 Discitis, unspecified, cervical region; E78.00 Pure hypercholesterolemia, unspecified; I10 Essential (primary) hypertension; J45.909 Unspecified asthma, uncomplicated; E11.9 Type 2 diabetes mellitus without complications; F17.200 Nicotine dependence, unspecified, uncomplicated; Z88.0 Allergy status to penicillin; Z88.8 Allergy status to other drugs, medicaments and biological substances; Z91.018 Allergy to other foods; Z79.4 Long term (current) use of insulin; Z79.899 Other long term (current) drug therapy
CPT/HCPCS: 36573; 36415; 85025; 85610; 85730; 99283; C1751; C1894; J1642; J3490; J7050; A9270

== ENCOUNTER 2024-12-20 10:34 | Inpatient (IN) | payer MEDICAID, SELFPAY ==
[2024-12-20] VITALS (26 sets, daily range): BP systolic 104–183; BP diastolic 66–120; PULSE 90–105; RESP 12–97; TEMP 36.1–36.8; O2SAT 95–99; BMI 26.5
--- NOTE | 2024-12-20 10:57 | XR_ITS ---
Examination: CT brain head without contrast. 2-D sagittal coronal reconstructions Date and time of exam:December 20, 2024 1116 hours INDICATIONS: Patient fell today with injury to the head, head pain COMPARISON: December 13, 2024 CTDI: vol (mGy):55.9 DLP: (mGycm):1177 Technique: Multiple CT axial sections of the brain have been obtained, 5 mm slice thickness. Contrast has not been administered. 2-D sagittal, coronal reconstructions have been obtained Low dose protocols were performed. One or more of the following dose reduction techniques were used; automated exposure control, adjustment of the mA and/or KV according to patient size, use of iterative reconstruction technique. Findings: Patient motion severely degrades this study Ventricles are not enlarged IMPRESSION: Nondiagnostic study
--- NOTE | 2024-12-20 10:58 | PC.NURSE ---
MICHELLE FROM HOME, WAS FOUND DOWN ON FLOOR BY SISTERS. PER SISTERS PT HAS BEEN CONFUSED AND LETHARGIC SINCE BEING SEEN HERE LAST WEEK FOR SAME COMPLAINT. EMS GAVE ORAL GLUCOSE EN ROUTE DUE TO BG 62. PT DID NOT GET DIALYSIS TODAY, NORMALLY GETS DIALYSIS M/W/F. HAS PICC LINE TO R ARM. HAS LAK AMPUTATION.
--- NOTE | 2024-12-20 10:59 | EDNOTE_ITS ---
<Statement entered by Daksha Collins MD - 01/03/25 06:28> I, Daksha Collins MD, have reviewed the history, exam, and assessment of the patient. I have evaluated the patient independently and agree with the plan of care documented by [ ]. All diagnostic studies were reviewed and discussed. I confirm the diagnosis as documented by the Resident. I was present during the Medical Decision Making for this patient. The patient's plan of care was created between myself and the Resident and consistent with our discussion of the patient's case. ED General RME/HPI General Chief complaint: Altered Mental Status Stated complaint: AMS Time Seen by Provider: 12/20/24 10:42 Arrival date/time: 12/20/24 10:34 RME / HPI RME / HPI narrative: 44-year-old female with past medical history of ESRD (HD on MWF), hypertension, seizure disorders, and osteomyelitis discitis of C5-C6 came into the ER brought in by ambulance due to altered mental status and being found on the floor for unknown time by her sister. On arrival patient was covered in feces. Blood sugar was 54 therefore an amp of D50 was given. Patient is able to tell you where she is at home she is on the year, but is confused while trying to explain why she was brought into the hospital and delusional. Complaining constantly of pain in her neck. Spoke with patient's sister who states that the patient has lately been more a gitated and more delusional at home. Stated that patient is staying currently at a friend's house and she was called as patient had fallen and was laying in the floor and was combative. Patient was laying in her feces and urine trying to eat the feces at this time. Patient sister states that she has been telling her friends that she is currently going for her sisters who at the time are not present at the home and that she has been more delusional lately. Also mentioned that she they refused her antibiotics yesterday. Related Data Home Medications ?Medication ?Instructions ?Recorded ?Confirmed amlodipine 5 mg tablet 10 mg PO DAILY 05/18/2411/03 sevelamer carbonate 2.4 gram oral 2.4 g PO TID 5 11/27/24 powder packet silver sulfadiazine 1 % topical 1 applic topical BID 0 11/17/24 11/27/24 cream tramadol 50 mg tablet 50 mg PO Q6H PRN pain 11/27/24 albuterol sulfate 90 mcg/actuation 2 puff inhalation . 4-6 hours PRN 11/27/24 11/27/24 aerosol inhaler shortness of breath or wheez ing cyclobenzaprine 10 mg tablet 10 mg PO DAILY PRN muscle spasm 11/27/24 11/27/24 hydrocodone 5 mg-acetaminophen 325 1 tab PO Q6H PRN pa in 11/27/24 11/27/24 mg tablet hydrocodone 5 mg-acetaminophen 325 1 tab PO TID PRN pa in 11/27/24 11/27/24 mg tablet insulin glargine 100 unit/mL (3 38 unit subcut QAM 11/27/24 mL) subcutaneous pen (Basaglar KwikPen U-100 Insulin) insulin regular human 100 unit/mL 1 sliding scale dose subcut TIDWM 11/27/24 11/27/24 injection solution (Novolin R Regular U-100 Insulin) ondansetron 4 mg disintegrating 4 mg PO Q8H PRN nausea and vomiting 11/27/24 11/27/24 tablet Allergies Allergy/AdvReac Type Severity Reaction Status Date / Time amoxicillin (From Augmentin) Allergy Severe Swelling Verified 12/20/24 10:58 of Lip/Tongue/Throat clavulanic acid (From Allergy Severe Swelling Verified 12/20/24 10:58 Augmentin) of Lip/Tongue/Throat mushroom AdvReac Intermediate Nausea Verified 12/20/24 10:58 Review of Systems Review of Systems ROS Unobtainable: unobtainable due to mental status Past Medical History Past Medical History CARDIAC: Positive Hypercholesterolemia, Cellulitis, Hypertension and Hypotension RESPIRATORY: Positive Asthma and Pneumonia GENITOURINARY: Positive Renal Disease and Dialysis (3 times a week) REPRODUCTIVE: Positive Previous Pregnancies MUSCULOSKELETAL: Positive Osteomyelitis ENT: Positive Blind (right eye) ENDOCRINE: Positive Endocrine Disorders, Diabetes Mellitus Type 2 and Hypoglycemia HEMATOLOGIC: Positive Anemia PSYCHO/SOCIAL: Positive Anxiety OTHER HISTORY: Positive Hospitalization, Falls, Blood Transfusions and Chicken Pox Family History FAMILY HISTORY: Positive Family Respiratory Disorders and Family Cardiac Disorders Surgical History SURGICAL: Positive Abdominal Surgery and Amputation Social History SMOKING STATUS: Current some day smoker SECOND HAND EXPOSURE: No SUBSTANCE USE: does not use ED Exam Narrative Physical exam: Gen: A&O X 3, agitated and in distress due to pain HEENT: NCAT, EOMI, L pupil reactive, R eye blind, not icteric. External ears normal. No rhinorrhea. Moist mucous membranes. Neck: Supple, full range of motion, no observable masses, No meningeal sign. Lungs: No Respiratory distress, clear bilateral. CV: tachycardic, no murmurs. Abdomen: Soft, nondistended, nontender, No rebound tenderness. MSK: No joint swelling, no redness, peripheral pulses presents, lumbar with no edema. L BKA Skin: No rashes, petechiae, lesions. Wound in R heel covered with feces and skin peeled. R AC picc line in place. L AV fistula Neuro: Moving all extremities, following directions, confused/delusional Psych: Agitated Course Quality Measures none Orders Category Date Time Status Bedside Blood Glucose Q1HR Care 12/20/24 11:01 Active Bedside COVID-19 Antigen Test NOW Care 12/20/24 13:02 Active COVID-19 Screening Questionnaire NOW Care 12/20/24 14:03 Active Electroplating Laborer Q4H START 00 Care 12/20/24 10:52 Active Central Line Dressing Change NOW Care 12/20/24 11:16 Active Continuous Pulse Oximetry NOW Care 12/20/24 10:52 Completed Decision to Admit X1 Care 12/20/24 14:03 Active EKG (ED ONLY) *Do not use* NOW Care 12/20/24 12:56 Completed Hemodialysis Urgent Care 12/20/24 13:04 Active Insert IV NOW Care 12/20/24 11:17 Active Miscellaneous Nursing Order X1 Care 12/20/24 11:00 Active Wound Care NOW Care 12/20/24 11:53 Active Consult to Nephrology Stat Cons 12/20/24 11:[address] head/brain wo con Stat Exams 12/20/24 10:57 Completed EKG (ED Only) Stat Exams 12/20/24 12:56 Draft Ammonia Stat Lab 12/20/24 11:46 Completed Blood Culture (Lab) Stat Lab 12/20/24 11:46 Received CBC [CBC] Stat Lab 12/20/24 11:46 Completed CMP [Comprehensive Metabolic Panel] Stat Lab 12/20/24 11:46 Completed CRP [C-Reactive Protein] Stat Lab 12/20/24 11:46 Completed Creatine Kinase Stat Lab 12/20/24 11:46 Completed Drug Screen,Urine Stat Lab 12/20/24 11:20 Completed Influenza A & B Rapid Panel Stat Lab 12/20/24 13:02 Ordered Lactic Acid [Lactate (Lactic Acid)] Stat Lab 12/20/24 11:46 Completed MRSA Nasal Screen Routine Lab 12/20/24 12:22 Ordered Magnesium Stat Lab 12/20/24 11:46 Completed Procalcitonin Stat Lab 12/20/24 11:46 Completed UA [Urinalysis] Stat Lab 12/20/24 11:20 Completed Urine Culture Stat Lab 12/20/24 12:41 Ordered Calcium Gluconate 10% Inj Med 12/20/24 12:39 Discontinued 1 gm IV X1 ONE Dextrose 50% Syr [D50w Syringe Abboject] Med 12/20/24 10:53 Discontinued 50 ml .ROUTE .STK-MED ONE Dextrose 50% Syr [D50w Syringe Abboject] Med 12/20/24 11:01 Discontinued 50 ml IVP X1 ONE HYDROmorphone INJ [Dilaudid Inj] Med 12/20/24 11:37 Discontinued 0.5 mg IVP X1 ONE Vancomycin Pharmacy to Dose Med 12/20/24 12:18 Discontinued 1 each IV X1 ONE Vancomycin/Water 1250 mg Ivpb 250 ml Med 12/20/24 12:30 Active IV X1 cefTRIAXone/D5w 1gm IV premix [Rocephin/D5w 1gm IV Med 12/20/24 12:18 Discontinued premix] 1 gm in 50 ml IV X1 Vital Signs Vital signs: Vital Signs Temperature 97.0 F 12/20/24 11:12 Pulse Rate 105 H 12/20/24 11:12 Respiratory Rate 18 12/20/24 11:12 Blood Pressure 176/119 H 12/20/24 11:12 Pulse Oximetry (%) 99 12/20/24 11:12 Oxygen Delivery Method Room Air 12/20/24 11:12 Discharge Plan Plan Patient Disposition: Admit Acute Care w/in Hospital Prescriptions/Referrals Prescriptions/Med Rec: No Action amlodipine 5 mg tablet 10 mg PO DAILY Patient Comments: TAKE 1 TABLET BY MOUTH DAILY FOR BLOOD PRESSURE hydrocodone-acetaminophen 5-325 mg tablet 1 tab PO TID PRN (Reason: pain) Patient Comments: TAKE 1 TABLET BY MOUTH 3 TIMES A DAY NEEDED FOR PAIN ondansetron 4 mg tablet,disintegrating 4 mg PO Q8H PRN (Reason: nausea and vomiting) Patient Comments: DISSOLVE 1 TABLET ON TONGUE EVERY 8 HOURS NEEDED FOR NAUSEA AND VOMITING Rx Instructions: sublingual cyclobenzaprine 10 mg tablet 10 mg PO DAILY PRN (Reason: muscle spasm) insulin glargine [Basaglar KwikPen U-100 Insulin] 100 unit/mL (3 mL) insulin pen 38 unit subcut QAM Novolin R Regular U100 Insulin 100 unit/mL solution 1 sliding scale dose subcut TIDWM Patient Comments: USE UP TO 30 UNITS MAX/ DAY PER SLIDING SCALE 3 TIMES A DAY albuterol sulfate 90 mcg/actuation HFA aerosol inhaler 2 puff INHALATION .4-6 hours PRN (Reason: shortness of breath or wheezing) Patient Comments: USE ONE TO TWO INHALATIONS BY MOUTH EVERY 4-6 HOURS NEEDED FOR ASTHMA hydrocodone-acetaminophen 5-325 mg tablet 1 tab PO Q6H PRN (Reason: pain) tramadol 50 mg tablet 50 mg PO Q6H PRN (Reason: pain) Patient Comments: TAKE 1 TABLET BY MOUTH EVERY 6 TO 8 HOURS NEEDED FOR PAIN FOR 10 DAYS silver sulfadiazine 1 % cream 1 applic TOPICAL BID Patient Comments: 1 APPLICATION TOPICALLY TO OPEN BLISTERS TWICE A DAY 30 DAYS Rx Instructions: left inner upper arm, near AV fistula sevelamer carbonate 2.4 gram powder in packet 2.4 g PO TID Patient Comments: TAKE 1 PACKET BY MOUTH 3 TIMES A DAY Referrals: Khadijah Veronica PA-C [Primary Care Provider] - In 1 week Problem List Clinical Impression: Acute encephalopathy Patient/Caregiver Discharge Instructions Print Language: Icelandic Stand Alone Forms: Hannah Award Info., Patient Portal Info Letter MDM Narrative MDM hospital course: Patient was seen and evaluated upon arrival by myself. Diagnostic labs and imaging were ordered. Patient blood sugar level in the 50s therefore gave dextrose x 1. Spoke with leather softener Dr. Livingston who is patient's outpatient leather softener as patient has not gotten any hemodialysis since . Patient will likely need hemodialysis today. Patient's labs showed hyperkalemia, but EKG did not show any peaked T waves and patient was scheduled for hemodialysis therefore at this time did not give hyperkalemia cocktail and only gave calcium gluconate. 14: 00: Spoke with IM team for admission. Will assess the patient for admission for encephalopathy likely metabolic. Case disclosed with Attending Dr. Dennis Vazquez PGY2 Disclaimer: Even though this this note was dictated by speech recognition and even though it was carefully revised there may still be minor errors in billing manager due to voice recognition software. Medication Administration(s) Medication Administration History Vancomycin HCl (Vancomycin/Water 1250 Mg Ivpb) 250 mls @ 120 mls/hr IV X1 ONE Stop: 12/20/24 14:34 Discontinued Medications Calcium Gluconate (Calcium Gluconate 10% Inj 1 Gm/10 Ml Vial) 1 gm IV X1 ONE Stop: 12/20/24 12:40 Last Admin: 12/20/24 12:50 Dose: 1 gm Documented By: AWA Dextrose (Dextrose 50%-Water Inj 50 Ml Syringe) 50 ml IVP X1 ONE Stop: 12/20/24 11:02 Last Admin: 12/20/24 11:04 Dose: 50 ml Documented By: MYLA Dextrose (Dextrose 50%-Water Inj 50 Ml Syringe) Confirm Administered Dose 50 ml .ROUTE .STK-MED ONE Stop: 12/20/24 10:54 Last Admin: 12/20/24 11:06 Dose: Not Given Documented By: MYLA Non-Admin Reason: Override Medication Hydromorphone HCl (Hydromorphone Inj 2 Mg/Ml Vial) 0.5 mg IVP X1 ONE Stop: 12/20/24 11:38 Last Admin: 12/20/24 11:56 Dose: 0.5 mg Documented By: AWA Ceftriaxone Sodium/Dextrose (Rocephin/D5w 1gm Iv Premix) 1 gm in 50 mls @ 100 mls/hr IV X1 ONE Stop: 12/20/24 12:47 Pharmacy Consult (Vancomycin Pharmacy To Dose 1 Each Each) 1 each IV X1 ONE Stop: 12/20/24 12:19
[2024-12-20] MEDS: DEXTROSE 50%-WATER INJ 50 ML SYRINGE IVP (11:04)
[2024-12-20 11:31] LABS: Collection Type, Urine Voided
[2024-12-20 11:52] LABS: Bacteria,Urine Rare; Bilirubin,Urine Negative (Negative); Blood,Urine 1+ (Negative); Clarity,Urine Clear (Clear/Hazy); Color,Urine Lt-Yellow (Lt Yel-Yel); Glucose, Urine 2+ (Negative); Ketones,Urine 1+ (Negative); Leukocyte Esterase,Urine Positive (Negative); Nitrite,Urine Negative (Negative); PH,Urine 8.0 (5.0-7.0); Protein,Urine 3+ (Neg - Trace); RBC,Urine 4 /hpf (0-3); Specific Gravity,Urine 1.017 (1.001-1.035); Squamous Epithelial Cell,Urine 11 /hpf (0-5); Urobilinogen,Urine Negative mg/dL (0.0-1.0); WBC,Urine 31 /hpf (0-5)
[2024-12-20 11:53] LABS: Amphetamine/Methamp Scrn,U Negative (Negative); Barbiturate Screen,Urine Negative (Negative); Benzodiazepines Screen,Urine Negative (Negative); Benzoylecgonine Screen, Ur Negative (Negative); Fentanyl Screen,Urine Negative (Negative); Opiate Screen,Urine Positive (Negative); THC Screen,Urine Positive (Negative)
[2024-12-20] MEDS: HYDROmorphone INJ 2 MG/ML VIAL 0.5 MG IVP ×2 (11:56→23:32)
[2024-12-20 11:57] LABS: Lactate (Lactic Acid) 1.5 mMol/L (0.4-2.0)
[2024-12-20 12:00] LABS: Basophils # (Auto) 0.1 Thou/mm3 (0.0-0.2); Basophils % (Auto) 1 % (0-2.5); Eosinophils # (Auto) 0.1 Thou/mm3 (0.0-0.5); Eosinophils % (Auto) 1 % (0-10); Hematocrit 33.7 % (36.0-46.0); Hemoglobin 10.5 g/dL (12.0-16.0); Immature Granulocytes Auto 0.06 Thou/mm3 (0.00-0.00); Lymphocytes # (Auto) 1.5 Thou/mm3 (1.0-4.8); Lymphocytes % (Auto) 11 % (10-50); Mean Corpuscular HGB Conc 31.2 g/dl (31.0-37.0); Mean Corpuscular Hemoglobin 25.7 pg (25.0-35.0); Mean Corpuscular Volume 83 fL (80-100); Monocytes # (Auto) 1.0 Thou/mm3 (0.0-0.8); Monocytes % (Auto) 7 % (0-12); Neutrophils # (Auto) 11.5 Thou/mm3 (1.8-7.7); Neutrophils % (Auto) 81 % (37-80); Nucleated Red Blood Cell # 0.00 Thou/mm3 (0.00-0.00); Nucleated Red Blood Cell % 0 /100 WBC (0); Platelet Count 378 Thou/mm3 (140-440); RDW Standard Deviation 55.9 fL (36.4-46.3); Red Blood Count 4.08 Miln/mm3 (4.00-5.20); White Blood Count 14.3 Thou/mm3 (3.6-11.0)
[2024-12-20 12:32] LABS: Alanine Aminotransferase 10 U/L (10-49); Albumin, Serum 3.9 gm/dL (3.5-5.0); Albumin/Globulin Ratio 1.2 (1.2-2.2); Alkaline Phosphatase 111 U/L (46-116); Ammonia < 10 uMol/L (11-32); Anion Gap 22 (7-16); Aspartate Amino Transferase 16 U/L (0-34); BUN/Creatinine Ratio 7 Ratio (12-20); Bilirubin,Total 0.5 mg/dL (0.3-1.2); Blood Urea Nitrogen 85 mg/dL (9-23); C-Reactive Protein 11.8 mg/dL (0.0-0.9); Calcium 8.9 mg/dL (8.3-10.6); Calcium (Corrected) 9.0 mg/dL (8.5-10.1); Carbon Dioxide 16.4 mMol/L (20.0-31.0); Chloride 96 mMol/L (98-107); Creatine Kinase 291 U/L (34-171); Creatinine (Component) 11.4 mg/dL (0.6-1.3); Globulin 3.2 gm/dL (2.3-3.5); Glucose 234 mg/dL (74-106); Magnesium 2.1 mg/dL (1.6-2.6); Osmolality,Calculated 302 (275-295); Procalcitonin 0.23 ng/ml (0.0-0.49); Sodium 134 mMol/L (136-145); Total Protein 7.1 gm/dL (5.7-8.2); eGFR 4 See Note
[2024-12-20 12:35] LABS: Potassium 6.7 mMol/L (3.4-5.1)
[2024-12-20] MEDS: CALCIUM GLUCONATE 10% INJ 1 GM/10 ML VIAL IV (12:50)
--- NOTE | 2024-12-20 12:56 | EKG_ITS ---
[facility] Test Date: 2024-12-20 Pat Name: ELVIA FLORES Department: Room: - Gender: Female E Commerce Analyst: : 1980 Requested By: Erasto Vazquez Order Number: [id number] Reading MD: Erasto Vazquez Measurements Intervals [place] Rate: 99 P: 14 [place]: 144 QRS: 6 QRSD: 109 T: 72 QT: 404 QTc: 518 Interpretive Statements SINUS RHYTHM SEPTAL MYOCARDIAL INFARCTION , OF INDETERMINATE AGE [40+ ms Q WAVE IN V1/V2] Compared to ECG 12/13/2024 15:49:49 Myocardial infarct finding now present ST (T wave) deviation no longer present /store/S0/[id number]/ecg/[id number].pdf
--- NOTE | 2024-12-20 15:15 | PC.CC ---
Addendum entered by Jesenia Vickers 12/20/24 16:28: ....It should be known that it is unknown by the pts son if the pt is a Full Code or DNR. Pt cannot do her own ADLs. Original Note: 1515-ASW received a call from the pts son Jack who reported he is worried for the pt as she is unable to care for herself due to her lack of medical care for herself. Pts son reported that the pt is not able to go back to the place where she was staying, as her friend whom she was staying with can no longer care for her. Pts son asked ASW if the pt can be placed in a [place] [facility] [place] facility due to the pts inability to care for herself. Pts son stated he would like to speak to the pts assigned RN and the ER provider about the concerns he has for the mother safety.. ASW transferred the pts son to the assigned RN.
--- NOTE | 2024-12-20 15:30 | ESHP_ITS ---
<Statement entered by Arielle Orosco MD - 12/21/24 10:30> Patient was seen and examined at bedside. I agree on the assessment and plan on this note as documented by resident Arianna Jones DO PGY1. 44-year-old female with past medical history as below, presented to [facility] ED for altered mental status, patient at home lying unconscious in her feces, patient has history of multiple admissions for similar problems which were attributed to noncompliance with dialysis outpatient, CT scan of head on admission is unremarkable, patient's metabolic panel significant for hyperkalemia and uremia. Patient noted to have high anion gap metabolic acidosis likely secondary to elevated urea, patient was also found to be significantly hypoglycemic in the emergency department with fingerstick 54, does take insulin at home. Patient seen in dialysis, will order further metabolic workup, will continue to assess neuro status every 4 hours. Will resume ceftriaxone and vancomycin for osteomyelitis/C5-C6 discitis with abscess, will consider infectious disease consult. Underlying social issues will also complicate patient's discharge disposition, social service director was made aware. Disposition telemetry, will repeat renal panel later after dialysis. Case discussed with attending Dr. Fredy Orosco MD PGY-2 Documentation for date of: 12/20/24 HPI History of Present Illness Chief complaint: Altered mental status History of present illness: Jo Bajwa is a 44F pmhx significant for ESRD on HD (MWF, however noncompliant) through AV fistula placed on 10/20/2024, recently diagnosed C5-C6 discitis with abscess on ceftriaxone 2 g and vancomycin daily through PICC line, IDDM2 s/p L AKA, polysubstance use, and history of seizures (not on any antiseizure medications) who presents with altered mental status. On interview patient is somnolent and unable to provide history. Per sister Gisella, patient has been living with a friend and was called today because patient was home lying unconscious in her feces. She reports that patient has been having fluctuating mental status with aggression since November discharge. States that she is unsure if patient is missing dialysis sessions and not taking her insulin, but believes that she is adherent with her antibiotic schedule with home health. Sister also endorses that if patient does not have safe disposition after discharge. Per Dr. Livingston, patient's last hemodialysis was Thursday 8/14. Per chart review, patient to come to the ED for emergent hemodialysis on 12/14 and revisited the ED on 12/16 for no PICC line, documented that it was likely removed during 12/14 visit and replaced 12/17. PMHx: ESRD on HD (MWF), osteomyelitis discitis, insulin-dependent type 2 diabetes, polysubstance use status post left above-knee amputation, history of seizures, asthma Surgical Hx: Left AKA, cholecystectomy, left AV fistula Social Hx: Denies alcohol, tobacco use, remote methamphetamine use Allergies: Augmentin -throat swelling Medications: Pending med rec In ED, BP 176/119 HR 105, RR18, satting 99% RA. Significant labs include initial glucose of 54, WBC 14.3, hemoglobin 10.5, potassium 6.7, bicarb 16.4, BUN 88 anion gap 22, creatinine 11.4, glucose 234, CK 291. In ED, given amp of D50, hydromorphone 0.5 mg x [address] and [address]ate. Head CT done however nondiagnostic study due to patient movement. EKG shows sinus rhythm with a rate of 99., consults. Patient was admitted for further management of altered mental status. Review of Systems Review of Systems Systems Reviewed: All systems reviewed, normal except as documented Exam Vital Signs Temp Pulse Resp BP Pulse Ox O2 Del Method 97.5 F 101 H 22 H 181/97 H 97 Room Air 12/20/24 13:38 12/20/24 15:15 12/20/24 13:38 12/20/24 15:15 12/20/24 13:38 12/20/24 12:28 Narrative Exam GENERAL: Somnolent, grimaces on sternal rub HEENT: NC/AT, mucous membranes dry, bilateral sclera anicteric CARDIOVASCULAR: regular rate and rhythm, S1/S2 present, no murmurs appreciated PULMONARY: clear to auscultation bilaterally, no rales/rhonchi/wheezes ABDOMINAL: soft, non-tender, non-distended, no rebound/guarding, bowel sounds present EXTREMITIES: no peripheral edema, +R peripheral IV, +L AV fistula with palpable thrill, +L AKA SKIN: warm and dry, intact, no rashes NEURO: CN II-XII grossly intact Results: Labs 12/20/24 11:46 12/20/24 11:46 Labs: Short CBC 12/20/24 Range/Units 11:46 WBC 14.3 H (3.6-11.0) Thou/mm3 Hgb 10.5 L (12.0-16.0) g/dL Hct 33.7 L (36.0-46.0) % Plt Count 378 (140-440) Thou/mm3 BMP 12/20/24 11:46 Sodium 134 L Potassium 6.7 H* Chloride 96 L Carbon Dioxide 16.4 L BUN 85 H Creatinine 11.4 H* D Glucose 234 H Calcium 8.9 Cardiac Enzymes 12/20/24 Range/Units 11:46 Total Creatine Kinase 291 H (34-171) U/L Liver Function 12/20/24 Range/Units 11:46 Total Bilirubin 0.5 (0.3-1.2) mg/dL AST 16 (0-34) U/L ALT 10 (10-49) U/L Alkaline Phosphatase 111 (46-116) U/L Albumin 3.9 (3.5-5.0) gm/dL Urine 12/20/24 Range/Units 11:20 Urine Color Lt-Yellow (Lt Yel-Yel) Urine Clarity Clear (Clear/Hazy) Urine pH 8.0 H (5.0-7.0) Ur Specific [place] 1.017 (1.001-1.035) Urine Protein 3+ A (Neg - Trace) Urine Glucose (UA) 2+ A (Negative) Quality Measures Quality Measures VTE prophylaxis Medications Home Medications and Allergies Home Medications ?Medication ?Instructions ?Recorded ?Confirmed ?Type amlodipine 5 mg tablet 10 mg PO DAILY 05/18/2411/03 History sevelamer carbonate 2.4 gram oral 2.4 g PO TID 5 11/27/24 History powder packet silver sulfadiazine 1 % topical 1 applic topical BID 0 11/17/24 11/27/24 History cream tramadol 50 mg tablet 50 mg PO Q6H PRN pain 11/27/24 History albuterol sulfate 90 mcg/actuation 2 puff inhalation . 4-6 hours PRN 11/27/24 11/27/24 History aerosol inhaler shortness of breath or wheez ing cyclobenzaprine 10 mg tablet 10 mg PO DAILY PRN muscle spasm 11/27/24 11/27/24 History hydrocodone 5 mg-acetaminophen 325 1 tab PO Q6H PRN pa in 11/27/24 11/27/24 History mg tablet hydrocodone 5 mg-acetaminophen 325 1 tab PO TID PRN pa in 11/27/24 11/27/24 History mg tablet insulin glargine 100 unit/mL (3 38 unit subcut QAM 11/27/24 History mL) subcutaneous pen (Basaglar KwikPen U-100 Insulin) insulin regular human 100 unit/mL 1 sliding scale dose subcut TIDWM 11/27/24 11/27/24 History injection solution (Novolin R Regular U-100 Insulin) ondansetron 4 mg disintegrating 4 mg PO Q8H PRN nausea and vomiting 11/27/24 11/27/24 History tablet Allergies Allergy/AdvReac Type Severity Reaction Status Date / Time amoxicillin (From Augmentin) Allergy Severe Swelling Verified 12/20/24 10:58 of Lip/Tongue/Throat clavulanic acid (From Allergy Severe Swelling Verified 12/20/24 10:58 Augmentin) of Lip/Tongue/Throat mushroom AdvReac Intermediate Nausea Verified 12/20/24 10:58 Visit Medications Discontinued Medications Calcium Gluconate (Calcium Gluconate 10% Inj 1 Gm/10 Ml Vial) 1 gm IV X1 ONE Stop: 12/20/24 12:40 Last Admin: 12/20/24 12:50 Dose: 1 gm Dextrose (Dextrose 50%-Water Inj 50 Ml Syringe) 50 ml IVP X1 ONE Stop: 12/20/24 11:02 Last Admin: 12/20/24 11:04 Dose: 50 ml Hydromorphone HCl (Hydromorphone Inj 2 Mg/Ml Vial) 0.5 mg IVP X1 ONE Stop: 12/20/24 11:38 Last Admin: 12/20/24 11:56 Dose: 0.5 mg Ceftriaxone Sodium/Dextrose (Rocephin/D5w 1gm Iv Premix) 1 gm in 50 mls @ 100 mls/hr IV X1 ONE Stop: 12/20/24 12:47 Vancomycin HCl (Vancomycin/Water 1250 Mg Ivpb) 250 mls @ 120 mls/hr IV X1 ONE Stop: 12/20/24 14:34 Pharmacy Consult (Vancomycin Pharmacy To Dose 1 Each Each) 1 each IV X1 ONE Stop: 12/20/24 12:19 Assessment & Plan Plan Jo Bajwa is a 44F pmhx significant for ESRD on HD (MWF, however noncompliant) through AV fistula placed on 10/20/2024, recently diagnosed C5-C6 discitis with abscess on ceftriaxone 2 g and vancomycin daily through PICC line, IDDM2 s/p L AKA, polysubstance use, and history of seizures (not on any antiseizure medications) who presents with altered mental status admitted for likely metabolic encephalopathy and for urgent HD. #Acute encephalopathy, likely metabolic #ESRD on HD (MWF) #Hyperkalemia #HAGMA #Uremia Patient presented with altered mental status, last hemodialysis session 12/[address] Livingston. Patient has had a history of noncompliance with hemodialysis likely 2/2 poor social support. On admission K 6.1, BUN 85, Cr 11.4. Lactic wnl 1.5, UA showed 3+ protein, 2+ glucose, 1+ ketones, 1+ blood, +LE, WBC 31, bacteria rare. UDS +opiates and THC Encephalopathy likely metabolic 2/2 elevated BUN from continued missed dialysis sessions. Although WBC mildly elevated at 14.3, infectious cause less likely as lactate within normal limits, UA shows possible infection however patient is on antibiotics at home for discitis, and patient is saturating well on room air. Patient does have a history of discitis with unclear antibiotic regimen schedule however likely inconsistent as patient recently visited ED for no PICC line. Unclear whether encephalopathy is toxic as patient is unable to provide a history on current medication or drug use. Plan: - Nephrology consulted, recs appreciated: urgent HD today - F/u PM renal panel - Reassess mental status following HD - CTM WBC and vitals - Consider CXR if patient desaturates #C5-C6 discitis with abscess, on abx #Leukocytosis Patient was recently admitted 11/17/24 and diagnosed with C5-C6 discitis with abscess, sent to [facility] for further recommendations. No biopsy was taken at the time due to abscess location. Patient was discharged with Rocephin 2 g and vancomycin every 24 hours through PICC line for total 6 weeks (ending 12/30/2024). As above, patient had PICC line reinserted recently. Leukocytosis may be 2/2 discitis versus reactive. Plan: - Start ceftriaxone 2 g QD and vancomycin QD through R PICC line - Consult social service director regarding possible SNF placement - Consider consulting ID who returns 12/22, for further antibiotic length as patient most likely missed doses - CTM WBC and vitals #IDDM2 s/p L AKA #Hypoglycemia, resolved #Hyperglycemia Per sister, she is unsure if patient is taking insulin at home. Last A1c 11/18/24 6.2. On admission, fingerstick glucose 54, likely secondary to poor oral intake vs poor oral intake while taking insulin. Plan: - SSI step [address] - CTM glucose #HTN Patient has a history of hypertension and is on amlodipine 10 mg daily. On admission BP 176/116. Plan: - Continue home amlodipine 10 mg QD - CTM BP Hospital management: Lines: peripheral IV, R PICC line Diet: NPO due to AMS Bowel: Senna GI prophylaxis: IV pantoprazole 40 mg QD DVT prophylaxis: heparin q12 Disposition: tele for management of AMS CODE STATUS: Full Code Plan of care discussed with attending Dr. Daniel, and PGY-2 Dr. Orosco. Arianna Jones, DO PGY-1 Internal Medicine
--- NOTE | 2024-12-20 16:08 | PC.CC ---
1608- Pt is a 44 yo female who was BIBA with altered mental status. Per sister Gisella, patient has been living with a friend and was called today because patient was home lying unconscious in her feces. ALBERT Vickers completed the initial with the pts son Jack Bajwa [phone] as the pt was not able to speak at the time. Per pts son Jack, he is the designated person to make decisions for the pt if the pt can no longer or temporarily make decisions for herself. Jack reported that the pt is considered homeless and was living with a friend. However, Jack reported the pt is no longer welcomed to return to the friends house, as the pt has become too much for the friend to care for. Jack reported that the pts PCP is Dr. Khadijah Veronica at the [facility]. Jack reported that the pt should be getting dialysis, as she is diabetic but is unsure if she is compliant. 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 Pt uses a wheel chair to ambulate, but is unsure if she still has her wheel chair. Jack reported by Jack that the pt cannot do her own ADLs and is not medically taking care of herself. Jack reported he is not able to care for the pt, as he works and has his own family to care for. Jack reported that if the pt needs a SNF upon d/c, he feels that would be in the best interest of the pt due to her lack of capability to care for herself. SS to f/u on possible SNF, possible chair time for dialysis vs homeless care home upon d/c. DME: pt uses a wheel chair PCP: Dr. Khadijah Veronica at [facility] Decision Maker: Jack Bajwa, rita.
[2024-12-20] MEDS: DEXTROSE 50%-WATER INJ 50 ML SYRINGE 25 ML IV (18:27)
[2024-12-20] MEDS: cefTRIAXone 2 GM in SODIUM CHLORIDE 0.9% (Popper) 50 ML IV (18:31)
[2024-12-20 18:53] LABS: Albumin, Serum 3.9 gm/dL (3.5-5.0); Anion Gap 14 (7-16); BUN/Creatinine Ratio 5 Ratio (12-20); Blood Urea Nitrogen 34 mg/dL (9-23); Calcium 9.1 mg/dL (8.3-10.6); Calcium (Corrected) 9.2 mg/dL (8.5-10.1); Carbon Dioxide 24.6 mMol/L (20.0-31.0); Chloride 99 mMol/L (98-107); Creatinine (Component) 6.6 mg/dL (0.6-1.3); Estimated Creatinine Clearance 9.2 mL/min (>60); Glucose 74 mg/dL (74-106); Osmolality,Calculated 282 (275-295); Phosphorous 6.2 mg/dL (2.4-5.1); Potassium 4.4 mMol/L (3.4-5.1); Sodium 138 mMol/L (136-145); eGFR 7 See Note
[2024-12-20] MEDS: VANCOMYCIN/WATER 1250 MG IVPB 250 ML 120 MG IV (19:00)
--- NOTE | 2024-12-20 20:34 | PC.LAC ---
Pt's sister came to visit. Pt heard to be shouting even when sister left. Pt asking staff to not allow sister to come back.
[2024-12-20] MEDS: HEPARIN SOD INJ 5000 UNIT/ML VIAL SC (21:40)
[2024-12-21] VITALS (9 sets, daily range): BP systolic 127–163; BP diastolic 68–98; PULSE 70–103; RESP 13–97; TEMP 35.9–36.3; O2SAT 94–100; BMI 25.9; BMI 15.0
[2024-12-21] MEDS: HYDROmorphone INJ 2 MG/ML VIAL 1 MG IVP (02:21)
[2024-12-21 06:43] LABS: Basophils # (Auto) 0.1 Thou/mm3 (0.0-0.2); Basophils % (Auto) 1 % (0-2.5); Eosinophils # (Auto) 0.2 Thou/mm3 (0.0-0.5); Eosinophils % (Auto) 2 % (0-10); Hematocrit 35.1 % (36.0-46.0); Hemoglobin 10.7 g/dL (12.0-16.0); Immature Granulocytes Auto 0.02 Thou/mm3 (0.00-0.00); Lymphocytes # (Auto) 2.5 Thou/mm3 (1.0-4.8); Lymphocytes % (Auto) 25 % (10-50); Mean Corpuscular HGB Conc 30.5 g/dl (31.0-37.0); Mean Corpuscular Hemoglobin 25.2 pg (25.0-35.0); Mean Corpuscular Volume 83 fL (80-100); Monocytes # (Auto) 0.7 Thou/mm3 (0.0-0.8); Monocytes % (Auto) 7 % (0-12); Neutrophils # (Auto) 6.6 Thou/mm3 (1.8-7.7); Neutrophils % (Auto) 65 % (37-80); Nucleated Red Blood Cell # 0.00 Thou/mm3 (0.00-0.00); Nucleated Red Blood Cell % 0 /100 WBC (0); Platelet Count 355 Thou/mm3 (140-440); RDW Standard Deviation 55.7 fL (36.4-46.3); Red Blood Count 4.24 Miln/mm3 (4.00-5.20); White Blood Count 10.2 Thou/mm3 (3.6-11.0)
[2024-12-21 07:03] LABS: Folate 10.64 ng/mL (>5.38); Vitamin B12 1537 pg/mL (211-911)
[2024-12-21 07:19] LABS: Alanine Aminotransferase < 7 U/L (10-49); Albumin, Serum 3.7 gm/dL (3.5-5.0); Albumin/Globulin Ratio 1.2 (1.2-2.2); Alkaline Phosphatase 102 U/L (46-116); Anion Gap 16 (7-16); Aspartate Amino Transferase 15 U/L (0-34); BUN/Creatinine Ratio 5 Ratio (12-20); Bilirubin,Total 0.5 mg/dL (0.3-1.2); Blood Urea Nitrogen 36 mg/dL (9-23); Calcium 9.3 mg/dL (8.3-10.6); Calcium (Corrected) 9.5 mg/dL (8.5-10.1); Carbon Dioxide 21.8 mMol/L (20.0-31.0); Chloride 99 mMol/L (98-107); Creatinine (Component) 7.3 mg/dL (0.6-1.3); Estimated Creatinine Clearance 8.2 mL/min (>60); Globulin 3.0 gm/dL (2.3-3.5); Glucose 153 mg/dL (74-106); Magnesium 1.8 mg/dL (1.6-2.6); Osmolality,Calculated 285 (275-295); Phosphorous 8.5 mg/dL (2.4-5.1); Potassium 5.1 mMol/L (3.4-5.1); Sodium 137 mMol/L (136-145); Total Protein 6.7 gm/dL (5.7-8.2); Vancomycin,Random 35.0 mcg/mL; eGFR 7 See Note
[2024-12-21] MEDS: HYDROcodone/APAP 5/325 TABLET 1 TAB PO (08:20)
[2024-12-21] MEDS: cefTRIAXone 2 GM in SODIUM CHLORIDE 0.9% (Popper) 50 ML IV (08:22)
[2024-12-21] MEDS: HEPARIN SOD INJ 5000 UNIT/ML VIAL SC ×2 (08:23→20:05)
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
--- NOTE | 2024-12-21 11:23 | PC.SS ---
SS met with pt regarding her d/c plan. Pt is alert/oriented. Pt was oriented to name, place, birthday, and date. Pt resides with friends. Pt states her dialysis schedule is Friday at [facility] in [place] and utilizes transportation. Pt states she has missed dialysis due to being at hospital. SS spoke to Peggy from [facility] who explained pt utilizes [facility]. Pt states she is followed up [facility] for IV antibiotic. Physician residents state pt requires 2 IV antibiotic, Vanko and Rocephin 1 X day until 12-30-24. Physician residents will confirm IV antibiotic dosage with Dr. Dodd. Pt states she transfers herself into wheelchair without assistance. Pt states she is able to complete her own ADLs. Pt states she had seizure (physician resident was present at the time) while in the restroom, fell, and was unable to stand up due to having sever back pain (which is why she was in feces when her sister found her). Pt states she does not remember how she was able to get into the shower. Pt states her son, Jack is unable to care for anymore. Bedside nurse, Jaylin was present when pt named her son, Jack Bajwa as her medical decision maker if she is unable. SS provided verbal dc options to SNF. Pt is agreeable and is aware she will have to share room with people at SNF. Pt is requesting short term rehab. Pt states she pays rent where she is residing. Son is aware patient's health insurance covers short term rehab. DC Plan: SNF Next of Kin: Jack Bajwa, son, phone# [phone]
--- NOTE | 2024-12-21 11:30 | EKG_ITS ---
[facility] Test Date: 2024-12-21 Pat Name: ELVIA FLORES [facility] Logging Tractor Operator: SAMUEL : 1980 Requested By: Arianna Jones Order Number: [id number] Reading MD: Arianna Jones Measurements Intervals [place] Rate: 96 P: 50 DC: 145 QRS: 23 QRSD: 94 T: 93 QT: 372 QTc: 470 Interpretive Statements SINUS RHYTHM ANTEROSEPTAL MYOCARDIAL INFARCTION , OF INDETERMINATE AGE Compared to ECG 12/20/2024 13:01:15 No significant changes /store/S0/[id number].pdf
--- NOTE | 2024-12-21 11:55 | PC.SS ---
Addendum entered by Kassie Draper 12/21/24 12:46: SS has sent inquiry to the local SNF using [facility]. Original Note: Per bedside nurse, Myrna pt is not on Psych, anxiety, or depression medications. PASRR assessment has been completed. SS will send inquiry for SNF placement for short term rehab once PT notes are completed.
[2024-12-21] MEDS: INSULIN LISPRO (AdmeLOG) 1 UNIT/0.01 ML UNIT SC (12:16)
[2024-12-21] MEDS: SEVELAMER CARBONATE 0.8 GM PACKET (NON-FORMULARY) 2.4 GM PO ×2 (12:44→20:15)
--- NOTE | 2024-12-21 15:49 | PC.SS ---
Addendum entered by Kassie Draper 12/21/24 15:57: SS has sent PASRR assessment using [facility] to [facility]. Original Note: Pt was accepted to [facility], [place]. [facility] and [facility] declined. [facility] has not decided. SS met with pt to provide her with choices. SS received call from Dimitrios from [facility] who has accepted pt and is requesting PASRR assessment to start insurance authorization. Patient's choice is [facility]. SS has confirmed with Dimitrios they are able to accommodate 2 IV antibiotics 1X day until 12-30-24 and patient's dialysis chair time.
[2024-12-21] MEDS: HYDROmorphone INJ 2 MG/ML VIAL 0.5 MG IVP (20:07)
[2024-12-22] VITALS (25 sets, daily range): BP systolic 97–181; BP diastolic 45–96; PULSE 87–107; RESP 14–97; TEMP 36.2–37.1; O2SAT 92–97
--- NOTE | 2024-12-22 00:29 | RESP.EEG ---
EEG completed and ready for review
[2024-12-22] MEDS: HYDROcodone/APAP 5/325 TABLET 1 TAB PO ×2 (00:45→12:24)
[2024-12-22 06:06] LABS: Basophils # (Auto) 0.1 Thou/mm3 (0.0-0.2); Basophils % (Auto) 1 % (0-2.5); Eosinophils # (Auto) 0.2 Thou/mm3 (0.0-0.5); Eosinophils % (Auto) 2 % (0-10); Hematocrit 30.4 % (36.0-46.0); Hemoglobin 9.5 g/dL (12.0-16.0); Immature Granulocytes Auto 0.04 Thou/mm3 (0.00-0.00); Lymphocytes # (Auto) 3.0 Thou/mm3 (1.0-4.8); Lymphocytes % (Auto) 29 % (10-50); Mean Corpuscular HGB Conc 31.3 g/dl (31.0-37.0); Mean Corpuscular Hemoglobin 25.9 pg (25.0-35.0); Mean Corpuscular Volume 83 fL (80-100); Monocytes # (Auto) 1.0 Thou/mm3 (0.0-0.8); Monocytes % (Auto) 9 % (0-12); Neutrophils # (Auto) 6.3 Thou/mm3 (1.8-7.7); Neutrophils % (Auto) 60 % (37-80); Nucleated Red Blood Cell # 0.00 Thou/mm3 (0.00-0.00); Nucleated Red Blood Cell % 0 /100 WBC (0); Platelet Count 357 Thou/mm3 (140-440); RDW Standard Deviation 55.1 fL (36.4-46.3); Red Blood Count 3.67 Miln/mm3 (4.00-5.20); White Blood Count 10.5 Thou/mm3 (3.6-11.0)
[2024-12-22 06:35] LABS: Alanine Aminotransferase < 7 U/L (10-49); Albumin, Serum 3.5 gm/dL (3.5-5.0); Albumin/Globulin Ratio 1.3 (1.2-2.2); Alkaline Phosphatase 91 U/L (46-116); Anion Gap 15 (7-16); Aspartate Amino Transferase < 8 U/L (0-34); BUN/Creatinine Ratio 8 Ratio (12-20); Bilirubin,Total 0.2 mg/dL (0.3-1.2); Blood Urea Nitrogen 62 mg/dL (9-23); Calcium 8.9 mg/dL (8.3-10.6); Calcium (Corrected) 9.3 mg/dL (8.5-10.1); Carbon Dioxide 22.8 mMol/L (20.0-31.0); Chloride 98 mMol/L (98-107); Creatinine (Component) 8.1 mg/dL (0.6-1.3); Estimated Creatinine Clearance 7.4 mL/min (>60); Globulin 2.8 gm/dL (2.3-3.5); Glucose 145 mg/dL (74-106); Magnesium 2.1 mg/dL (1.6-2.6); Osmolality,Calculated 292 (275-295); Phosphorous 8.6 mg/dL (2.4-5.1); Potassium 5.9 mMol/L (3.4-5.1); Sodium 136 mMol/L (136-145); Total Protein 6.3 gm/dL (5.7-8.2); Vancomycin,Random 28.9 mcg/mL; eGFR 6 See Note
--- NOTE | 2024-12-22 06:38 | PD.NEPHCONS ---
History of Present Illness Data of Consult Requesting Physician: Lian Daniel MD Primary Care Provider: Khadijah Veronica PA-C Consult Narrative History of present illness: A 44F PMH of ESRD on HD (MWF, however noncompliant) through AV fistula placed on 10/20/2024, recently diagnosed C5-C6 discitis with abscess on ceftriaxone 2 g and vancomycin daily through PICC line, IDDM2 s/p L AKA, polysubstance use, and history of seizures (not on any antiseizure medications) who presents with altered mental status. On interview patient is somnolent and unable to provide history. Per sister Gisella, patient has been living with a friend and was called today because patient was home lying unconscious in her feces. Nephrology is consulted to arrange HD. cc:: cc: Lian Daniel MD Review of Systems Review of Systems Systems Reviewed: All systems reviewed, normal except as documented Meds Home Medications and Allergies Home Medications ?Medication ?Instructions ?Recorded ?Confirmed ?Type amlodipine 5 mg tablet 10 mg PO DAILY 05/18/24 12/21/24 History sevelamer carbonate 2.4 gram oral 2.4 g PO TID 11/17/24 12/21/24 History powder packet tramadol 50 mg tablet 50 mg PO Q6H PRN pain 11/17/24 12/21/24 History albuterol sulfate 90 mcg/actuation 2 puff inhalation .4-6 hours PRN 11/27/24 12/21/24 History aerosol inhaler shortness of breath or wheezing cyclobenzaprine 10 mg tablet 10 mg PO DAILY PRN muscle spasm 11/27/24 12/21/24 History hydrocodone 5 mg-acetaminophen 325 1 tab PO TID PRN pain 11/27/24 12/21/24 History mg tablet ondansetron 4 mg disintegrating 4 mg PO Q8H PRN nausea and vomiting 11/27/24 12/21/24 History tablet Allergies Allergy/AdvReac Type Severity Reaction Status Date / Time amoxicillin (From Augmentin) Allergy Severe Swelling Verified 12/20/24 10:58 of Lip/Tongue/Throat clavulanic acid (From Allergy Severe Swelling Verified 12/20/24 10:58 Augmentin) of Lip/Tongue/Throat mushroom AdvReac Intermediate Nausea Verified 12/20/24 10:58 Exam Vital Signs Temp Pulse Resp BP Pulse Ox O2 Del Method 97.5 F 90 14 149/89 H 95 Room Air 12/22/24 04:00 12/22/24 04:00 12/22/24 04:00 12/22/24 04:00 12/22/24 04:00 12/22/24 04:00 Narrative Exam GENERAL: no acute distress HEENT: NC/AT, mucous membranes dry, bilateral sclera anicteric CARDIOVASCULAR: regular rate and rhythm, S1/S2 present, no murmurs appreciated PULMONARY: clear to auscultation bilaterally, no rales/rhonchi/wheezes ABDOMINAL: soft, non-tender, non-distended, no rebound/guarding, bowel sounds present EXTREMITIES: no peripheral edema, +L AKA SKIN: warm and dry, intact, no rashes NEURO: CN II-XII grossly intact Results Labs 12/23/24 04:55 12/23/24 04:55 Labs: Short CBC 12/21/24 12/22/24 Range/Units 05:34 04:44 WBC 10.2 10.5 (3.6-11.0) Thou/mm3 Hgb 10.7 L 9.5 L (12.0-16.0) g/dL Hct 35.1 L 30.4 L (36.0-46.0) % Plt Count 355 357 (140-440) Thou/mm3 BMP 12/21/24 05:34 Sodium 137 Potassium 5.1 D Chloride 99 Carbon Dioxide 21.8 BUN 36 H Creatinine 7.3 H* D Glucose 153 H D Calcium 9.3 Liver Function 12/21/24 Range/Units 05:34 Total Bilirubin 0.5 (0.3-1.2) mg/dL AST 15 (0-34) U/L ALT < 7 L (10-49) U/L Alkaline Phosphatase 102 (46-116) U/L Albumin 3.7 (3.5-5.0) gm/dL Assessment & Plan Assessment and plan (1) Acute encephalopathy: Status: Acute (2) ESRD on dialysis: Status: Acute Assessment and plan: C/w Dialysis while in hospital c/w dialysis 3 times a week low K diet monitor electrolytes (3) ESRD (end stage renal disease): Status: Acute
--- NOTE | 2024-12-22 08:13 | CHAP ---
Patient was visited by a Spiritual Care Volunteer on 12/21/2024 between 0900 and 1200 and received comfort, encouragement and/or prayer.
[2024-12-22] MEDS: HYDROmorphone INJ 2 MG/ML VIAL 0.25 MG IVP (08:42)
[2024-12-22] MEDS: PANTOPRAZOLE 40 MG TABLET PO (08:48)
[2024-12-22] MEDS: HEPARIN SOD INJ 5000 UNIT/ML VIAL SC ×2 (08:48→20:01)
[2024-12-22] MEDS: cefTRIAXone 2 GM in SODIUM CHLORIDE 0.9% (Popper) 50 ML IV (08:49)
[2024-12-22] MEDS: SEVELAMER CARBONATE 0.8 GM PACKET (NON-FORMULARY) 2.4 GM PO (08:52)
--- NOTE | 2024-12-22 09:02 | PC.SS ---
Follow up note: Dr. Dodd's recommendations are pending for IV antibiotics. SS has spoken to Dimitrios from [facility] who explained they have contacted patient's health insurance, Alisson Umana and her team is working on the insurance authorization through their hub system. . SS spoke to Kiet from [facility] who explained they have received insurance submission, PASRR, and patient's clinical information from [facility]. Per Kiet from [facility], explained review is still pending and they are waiting for the outcome. Kiet is aware pt is possible d/c for today after Dr. Dodd's recommendations are provided. Kiet provided UM#: [id number]. Dimitrios from [facility] explained they will contact [facility] once pt arrives to arrange transportation to dialysis. Pt is aware.
--- NOTE | 2024-12-22 09:24 | PC.CM ---
Patient opened to [facility]. She will need new home health orders if she goes home.
--- NOTE | 2024-12-22 09:40 | PC.NURSE ---
Patient taken to Dialysis at this time.
--- NOTE | 2024-12-22 11:13 | PC.SS ---
Addendum entered by Kassie Draper 12/22/24 14:59: SS has received call from patient's son, Jack who is aware pt will d/c to [facility] later today. Pt is requiring IV Vanko with dialysis until Jan 14, 2025. SS has faxed Dr. Dodd's note to [facility] in [place] and sent on [facility]. SS spoke to [facility] who has confirmed they received fax and have the IV Vanko in stock and are able t accommodate. Original Note: SS has received call from [place], [facility] who states they ready to accept pt and have insurance authorization. Dimitrios is requesting d/c orders to be sent. Dimitrios is aware we are waiting for Dr. Dodd's recommendations. Pt is aware and is agreeable to dc to [facility]. SS left patient's son, Jack voicemail. Physician resident, Dr. Griggs is aware.
[2024-12-22] MEDS: ALBUMIN HUMAN 25% IVPB 25 GM/100 ML BTL IV (11:48)
[2024-12-22 11:49] LABS: Sed Rate (ESR) 85 mm/hr (0-20)
[2024-12-22] MEDS: EPOETIN ALFA-EPBX INJ 10,000 UNIT/ML VIAL (ESRD) 10000 UNIT IV (11:52)
[2024-12-22 12:27] LABS: C-Reactive Protein 8.4 mg/dL (0.0-0.9)
--- NOTE | 2024-12-22 12:55 | PD.IDPROG ---
Subjective Subjective Interval history: s mireya bacteremi in november, rapidly cleared dmII poor adherence to hd ok for vanco alone with hd semi empirically thru 01/14 (based on s malaun[place] in [place] in november seen in [place] and hx noted with frequent readmits and uremia and non adherence to hd Exam Vital Signs Temp Pulse Resp BP Pulse Ox O2 Del Method 97.8 F 94 18 111/66 95 Room Air 12/22/24 12:36 12/22/24 12:45 12/22/24 12:36 12/22/24 12:45 12/22/24 12:36 12/22/24 07:38 Narrative Exam not ill appearing. denies any missed hd sessions at all. lives with a friend. quit smoking but uses mj gummies as able. Objective - Internal Medicine Labs 12/22/24 04:44 12/22/24 04:44 Labs: Laboratory Results - last 24 hr 12/22/24 04:44 WBC 10.5 RBC 3.67 L Hgb 9.5 L Hct 30.4 L MCV 83 MCH 25.9 MCHC 31.3 RDW Std Deviation 55.1 H Plt Count 357 Neut % (Auto) 60 Lymph % (Auto) 29 [place] % (Auto) 9 Eos % (Auto) 2 Baso % (Auto) 1 Neut # (Auto) 6.3 Lymph # (Auto) 3.0 [place] # (Auto) 1.0 H Eos # (Auto) 0.2 Baso # (Auto) 0.1 Immature Gran # (Auto) 0.04 H Absolute Nucleated RBC 0.00 Immature Gran % 0 Nucleated RBC % 0 ESR 85 H Sodium 136 Potassium 5.9 H D Chloride 98 Carbon Dioxide 22.8 Anion Gap 15 BUN 62 H Creatinine 8.1 H* D Estim Creat Clear Calc 7.4 L eGFR 6 L* BUN/Creatinine Ratio 8 L Glucose 145 H Calculated Osmolality 292 Calcium 8.9 Corrected Calcium 9.3 Phosphorus 8.6 H Magnesium 2.1 Total Bilirubin 0.2 L AST < 8 ALT < 7 L Alkaline Phosphatase 91 C-Reactive Prot, Quant 8.4 H Total Protein 6.3 Albumin 3.5 Globulin 2.8 Albumin/Globulin Ratio 1.3 Random Vancomycin 28.9 Assessment & Plan Time Spent With Patient Time: Total time spent is greater than 50% in coordination of care (as documented) at patient's floor/unit and/or counseling patient:
[2024-12-22] MEDS: SEVELAMER CARBONATE 2.4 GM PO ×2 (13:40→16:47)
--- NOTE | 2024-12-22 15:34 | ESPR_ITS ---
<Statement entered by Arielle Orosco MD - 12/24/24 09:36> Patient was seen and examined at bedside. I agree on the assessment and plan on this note as documented by resident Arianna Jones DO PGY1. 44-year-old female with past medical history as below admitted for acute encephalopathy, patient's mentation improved significantly with dialysis, patient is noncompliant with dialysis outpatient. Patient started on potassium binder per nephrology recommendations continues to have hyperkalemia refractory to dialysis treatments. Patient did have reported history of seizures we obtained a EEG which showed seizure-like activity, neurology consulted today recommending starting patient on Keppra. Infectious disease recommends to continue vancomycin for management of C5-C6 discitis with abscess during dialysis sessions, will continue PICC line as patient is inconsistent and noncompliant with hemodialysis treatments. Patient complains of significant back pain reports established with [facility] for further care, has been referred has first appointment next month. Encouraged to follow-up outpatient, patient will be discharged to snf facility after evaluation by neurology today. Case discussed with attending Dr. Melinda Orosco MD PGY-2 Documentation for date of: 12/22/24 Subjective Subjective Interval history: Overnight, patient was complaining of upper back pain, received Dilaudid 0.5 and 1 x 1 each. Patient seen and examined at bedside. Reports that her neck pain is painful but tolerable. Reports body feeling heavy. Denies chest pain abdominal pain urinary symptoms or fever. Patient is due for HD today, per nephrology, potassium binders can be started due to HD nonadherence and increase in potassium today at 5.9 despite HD on Friday. ID was consulted for C5-C6 discitis with abscess on the vancomycin through HD. Follow-up ESR and CRP. Per geriatric social work professor, SNF placement available that administers Vanc. EEG showed seizure-like activity neurology consulted, recs appreciated. Exam Vital Signs Temp Pulse Resp BP Pulse Ox O2 Del Method 97.8 F 92 18 137/71 H 95 Room Air 12/22/24 13:18 12/22/24 13:18 12/22/24 13:18 12/22/24 13:18 12/22/24 13:18 12/22/24 07:38 Narrative Exam GENERAL: alert, oriented AOx4, well nourished HEENT: NC/AT, mucous membranes moist, bilateral sclera anicteric, +R pupil cloudy CARDIOVASCULAR: regular rate and rhythm, S1/S2 present, no murmurs appreciated PULMONARY: clear to auscultation bilaterally, no rales/rhonchi/wheezes ABDOMINAL: soft, non-tender, non-distended, no rebound/guarding, bowel sounds present EXTREMITIES: no peripheral edema, +R peripheral IV, +L AV fistula with palpable thrill, +L AKA, +R heel superficial wound approximately 2x2 inches SKIN: warm and dry, intact except for wound as above NEURO: CN II-XII grossly intact Objective Labs 12/22/24 04:44 12/22/24 04:44 Labs: Laboratory Results - last 24 hr 12/22/24 04:44 WBC 10.5 RBC 3.67 L Hgb 9.5 L Hct 30.4 L MCV 83 MCH 25.9 MCHC 31.3 RDW Std Deviation 55.1 H Plt Count 357 Neut % (Auto) 60 Lymph % (Auto) 29 [place] % (Auto) 9 Eos % (Auto) 2 Baso % (Auto) 1 Neut # (Auto) 6.3 Lymph # (Auto) 3.0 [place] # (Auto) 1.0 H Eos # (Auto) 0.2 Baso # (Auto) 0.1 Immature Gran # (Auto) 0.04 H Absolute Nucleated RBC 0.00 Immature Gran % 0 Nucleated RBC % 0 ESR 85 H Sodium 136 Potassium 5.9 H D Chloride 98 Carbon Dioxide 22.8 Anion Gap 15 BUN 62 H Creatinine 8.1 H* D Estim Creat Clear Calc 7.4 L eGFR 6 L* BUN/Creatinine Ratio 8 L Glucose 145 H Calculated Osmolality 292 Calcium 8.9 Corrected Calcium 9.3 Phosphorus 8.6 H Magnesium 2.1 Total Bilirubin 0.2 L AST < 8 ALT < 7 L Alkaline Phosphatase 91 C-Reactive Prot, Quant 8.4 H Total Protein 6.3 Albumin 3.5 Globulin 2.8 Albumin/Globulin Ratio 1.3 Random Vancomycin 28.9 Quality Measures Quality Measures VTE prophylaxis Assessment & Plan Assessment Current Active Medications: Generic Name Dose Route Start Last Admin Trade Name Freq PRN Reason Stop Dose Admin Acetaminophen 650 mg 12/21/24 07:46 Acetaminophen 325 Mg Tablet PO 01/19/25 15:13 Q6H PRN Fever >100.5 or pain 1-3 Hydrocodone Bitart/Acetaminophen 1 tab 12/22/24 15:08 Hydrocodone/Apap 10/325 Tab PO 12/27/24 15:07 Q6HR PRN PAIN SCALE 4-10(Mod-Sev Albuterol/Ipratropium 3 ml 12/20/24 15:25 Albuterol/Ipratropium (Duoneb) Rt Maggie 3 Ml Nebu INH 01/19/25 15:24 Q4HR PRN SHORTNESS OF BREATH OR WHEEZE Amlodipine Besylate 10 mg 12/20/24 15:30 12/22/24 08:49 Amlodipine Besylate 5 Mg Tablet PO 01/19/25 15:29 10 mg QDAY NASREEN Administration Cyclobenzaprine HCl 10 mg 12/21/24 07:33 12/21/24 08:20 Cyclobenzaprine 5 Mg Tablet PO 10 mg DAILY PRN Administration muscle spasm Dextrose 25 ml 12/20/24 15:20 12/20/24 18:27 Dextrose 50%-Water Inj 50 Ml Syringe IV 01/19/25 15:19 25 ml Q15MIN PRN Administration BG 50-70 responsive npo pt Dextrose 50 ml 12/20/24 15:20 Dextrose 50%-Water Inj 50 Ml Syringe IV 01/19/25 15:19 Q15MIN PRN BG <50 OR BG <70 & pt unresponsive Glucagon 1 mg 12/20/24 15:20 Glucagon Inj 1 Mg Vial IM Q15MIN PRN BG <70, and no IV access Heparin Sodium (Porcine) 5,000 unit 12/20/24 21:00 12/22/24 08:48 Heparin Sod Inj 5000 Unit/Ml Vial SC 01/03/25 20:59 5,000 unit Q12HR NASREEN Administration Ceftriaxone Sodium 2 gm/ 50 mls @ 100 mls/hr 12/20/24 15:28 12/22/24 08:49 Sodium Chloride IV 12/27/24 15:27 100 mls/hr QDAY NASREEN Administration Albumin Human 25 gm in 100 mls @ 100 mls/min 12/22/24 09:26 12/22/24 11:48 Albuminar-25 Ivpb IV 100 mls/min PRN PRN Administration DIALYSIS Insulin Human Lispro 0 unit 12/20/24 17:00 12/22/24 13:38 Insulin Lispro (Admelog) 1 Unit/0.01 Ml Unit SC 01/19/25 16:59 Not Given AC NASREEN Protocol Ondansetron HCl 4 mg 12/20/24 15:14 Ondansetron Inj 2 Mg/Ml Inj 2 Ml IVP 01/19/25 15:13 Q6H PRN NAUSEA OR VOMITING Protocol Pantoprazole Sodium 40 mg 12/22/24 09:00 12/22/24 08:48 Pantoprazole 40 Mg Tablet PO 01/21/25 08:59 40 mg QDAY NASREEN Administration Protocol Pharmacy Consult 1 each 12/20/24 15:30 Vancomycin Pharmacy To Dose 1 Each Each IV 01/19/25 15:29 QDAY PRN PROTOCOL Sennosides 1 tab 12/20/24 15:14 Senna Tablet PO 01/19/25 15:13 QDAY PRN constipation Protocol Sevelamer Carbonate 2.4 gm 12/22/24 12:00 12/22/24 13:40 Sevelamer Carbonate 2.4 Gm Packet (Non-Formulary) PO 01/21/25 11:59 2.4 gm TIDWM [facility] Administration Plan Jo Bajwa is a 44F pmhx significant for ESRD on HD (MWF, however noncompliant) through AV fistula placed on 10/20/2024, recently diagnosed C5-C6 discitis with abscess on ceftriaxone 2 g and vancomycin daily through PICC line, IDDM2 s/p L AKA, polysubstance use, and history of seizures (not on any antiseizure medications) who presents with altered mental status admitted for likely metabolic encephalopathy and for urgent HD. #Acute encephalopathy resolved, likely metabolic #ESRD on HD (MWF) #Hyperkalemia, resolved #HAGMA, resolved #Uremia, improved Patient presented with altered mental status, last hemodialysis session 12/[address] Livingston. Patient has had a history of noncompliance with hemodialysis likely 2/2 poor social support. On admission K 6.1, BUN 85, Cr 11.4. Lactic wnl 1.5, UA showed 3+ protein, 2+ glucose, 1+ ketones, 1+ blood, +LE, WBC 31, bacteria rare. UDS +opiates and THC Encephalopathy likely metabolic 2/2 elevated BUN from continued missed dialysis sessions. Although WBC mildly elevated at 14.3, infectious cause less likely as lactate within normal limits, UA shows possible infection however patient is on antibiotics at home for discitis, and patient is saturating well on room air. Patient does have a history of discitis with unclear antibiotic regimen schedule however likely inconsistent as patient recently visited ED for no PICC line. Unclear whether encephalopathy is toxic as patient is unable to provide a history on current medication or drug use. BCx NGTD Received HD 12/20, 12/22, Plan: - Nephrology consulted, recs appreciated: HD today, can be restarted on potassium binders - CTM WBC and vitals - Consider CXR if patient desaturates - F/u UCx - Continue home sevelamer 2.4g TIDWM #Seizures Patient reports episodes of witnessed seizures by family members where sometimes she falls limp and other times where she is more agitated. Per patient, reports she has lapses in memory and has never been officially diagnosed; however since 10/2024, has been having more of these episodes. Recently, one episode per day. Possible that episodes of AMS are seizure activity, although some inconsistency upon history collecting and review of historical records. Never been on seizure medications before. EEG shows seizure like activity Plan: - Neurology consulted, recs appreciated - CTM for seizures #C5-C6 discitis with abscess, on abx #Leukocytosis, resolved #Hx of osteomyelitis s/p L AKA Patient was recently admitted 11/17/24 and diagnosed with C5-C6 discitis with abscess, sent to [facility] for further recommendations. No biopsy was taken at the time due to abscess location. Patient was discharged with Rocephin 2 g and vancomycin every 24 hours through PICC line for total 6 weeks (ending 12/30/2024). As above, patient had PICC line reinserted recently. Leukocytosis may be 2/2 discitis versus reactive. Plan: - Continue ceftriaxone 2 g QD and vancomycin QD through R PICC line - ID consulted, recs appreciated: In November staph lugdunensis bacteremia, vancomycin alone can be done through HD - supervisor customer services consulted regarding SNF placement - CTM WBC and vitals - F/u ESR and CRP #IDDM2 #Hypoglycemia, resolved #Hyperglycemia Per sister, she is unsure if patient is taking insulin at home. Last A1c 11/18/24 6.2. On admission, fingerstick glucose 54, likely secondary to poor oral intake vs poor oral intake while taking insulin. Plan: - SSI step [address] - CTM glucose #HTN Patient has a history of hypertension and is on amlodipine 10 mg daily. On admission BP 176/116. Plan: - Continue home amlodipine 10 mg QD - CTM BP #[place] [facility] Patient's baseline hemoglobin low throughout multiple hospital stays ranging from 7-11. Likely secondary to ESRD and she is receiving EPO during dialysis. Plan: - Follow-up nephrology outpatient for further management Hospital management: Lines: peripheral IV, R PICC line Diet: Carb consistent, renal, 1.5L restriction Bowel: Senna GI prophylaxis: IV pantoprazole 40 mg QD DVT prophylaxis: heparin q12 Disposition: tele for management of seizures and abx CODE STATUS: Full Code Plan of care discussed with attending Dr. Callaway, and PGY-2 Dr. Orosco. Arianna Jones, DO PGY-1 Internal Medicine Attending Provider Attestation/Addendum I attest that I was physically present for the evaluation, physical examination, lab and imaging review of the patient with the residents. I discussed the case with the residents and agree with the findings and plans of care as documented above. At bedside today, patient continues to complain of upper back pain. Continues to be on analgesic regimen, increased [place] to 10 mg. Continues to be on IV vancomycin for C5-C6 discitis with abscess. Infectious disease following closely, recommended continuation of antibiotics through 01/14. Appreciate recommendations. Insulin regimen for diabetes, amlodipine for hypertension. EEG result was concerning for seizure episode, we will obtain neurology consult. Melinda Callaway MD
--- NOTE | 2024-12-22 15:43 | PC.SS ---
SS was informed by physician resident, Dr. Griggs pt was positive for stroke and will not d/c today. SS has informed Dimitrios from [facility] and [facility] pt is possible d/c for tomorrow or Friday. Per Dimitrios, they will still accept pt.
--- NOTE | 2024-12-22 16:44 | ESCONSULT_ITS ---
RE: ELVIA FLORES : 1980 DATE OF CONSULTATION: 12/22/2024 REFERRING PHYSICIAN: Dr. Daniel REASON FOR CONSULTATION: Bacteremia with neck pain and abnormal imaging of the cervical spine noted _ prior biopsy with positive blood cultures with staph lugdunensis in November. Repeats were negative a few days later. The patient is on dialysis. Fistula is in place in the left arm. Surgeries include only dialysis access procedures. She denies other surgeries. She recently had her dialysis catheter removed from her chest after the fistula was placed and put into use. PAST MEDICAL HISTORY: Include diabetes and apparently frequent missed dialysis procedures, which she denies. ALLERGIES: AMOXICILLIN AND AUGMENTIN. IMMUNIZATIONS: Last tetanus was in April. She does take a flu shot every year. She has had two COVID vaccines and has had pneumococcal vaccine as well. FAMILY HISTORY: Positive for cancer and diabetes. SOCIAL HISTORY: She lives at home with a friend. She quit smoking many years ago, but does chew gummies from time to time. PHYSICAL EXAMINATION: The patient is alert, cooperative, and well-appearing. She just finished a long course of dialysis. She complains of neck pain as noted. Findings are as per imaging. There is no biopsy or pathology report. She has had positive blood cultures as mentioned from November. RECOMMENDATIONS: With the foreign material in the al arm,, she is going to need a long course of vancomycin, probably 1 g per every other dialysis until 02/10, 6 weeks from her first negative blood culture, which was in November. If the problem occurs in the near future after completing therapy, then we may need to look at alternatives, but for now, I would just treat her with vancomycin because she hads cleared about a month ago.a biopsy of the affected area sould be nice but she may have to be referred to a neurosurgeon for that no need for outpt ID f/u cc: MD Bala Veliz MD DT: 13:12:25 TT: 15:11:00 Ref: [id number] - TID: [id number] MTDD
[2024-12-22] MEDS: INSULIN LISPRO (AdmeLOG) 1 UNIT/0.01 ML UNIT SC (16:46)
--- NOTE | 2024-12-22 19:00 | PD.RESCONSUL ---
HPI Data of Consult Requesting Physician: Lian Daniel MD Admitting Provider: Lian Daniel MD Attending Provider: Lian Daniel MD Primary Care Provider: Khadijah Veronica PA-C Consult Narrative History of present illness: CC: Altered Patient is a 44 year old female with a past medical history of HTN, HLD, Diabetes Mellitus Type 2 insulin dependent, S/p left leg NOEMY (2020), ESRD on HD (M/W/F) w/ AV fistula secondary, history of seizures, and recent admission for discitis w/ abscess from C5-C6 with PICC line added during previous admission to complete antibiotics until 12/30/2024. Patient presented via EMS with chief compalin of confusion and lethargy over 1 week. Per chart review patient was found covered in feces at a friends home. Patient required dialysis in the ER on 12/14/2024. Per patient, family history of seizures. EEG noted for seizures. PMHx: ESRD on HD (MWF), osteomyelitis discitis, insulin-dependent type 2 diabetes, polysubstance use status post left above-knee amputation, history of seizures, asthma Surgical Hx: Left AKA, cholecystectomy, left AV fistula Social Hx: Denies alcohol, tobacco use, remote methamphetamine use Allergies: Augmentin -throat swelling Medications: Pending med rec In ED, BP 176/119 HR 105, RR18, satting 99% RA. Significant labs include initial glucose of 54, WBC 14.3, hemoglobin 10.5, potassium 6.7, bicarb 16.4, BUN 88 anion gap 22, creatinine 11.4, glucose 234, CK 291. In ED, given amp of D50, hydromorphone 0.5 mg x 1 and calcium gluconate. Head CT done however nondiagnostic study due to patient movement. EKG shows sinus rhythm with a rate of 99., consults Neurology consulted given history of seizure and possible breakthrough seizure. cc:: cc: Lian Daniel MD Review of Systems Review of Systems Narrative Review of Systems: General appearance: NO weight change, NO fatigue, NO weakness, NO fever, NO chills, NO night sweats, No cough Skin: NO rash, NO itching, NO sores, NO moles HEENT: NO Trauma, NO nausea, NO vomiting, NO visual changes, NO blurry vision, NO double vision, NO tinnitus, NO vertigo, NO ear discharge, NO rhinorrhea, NO stuffiness, NO sneezing, NO allergy, NO epistaxis. NO Hoarseness, NO sore throat, NO swollen neck. Cardiac: NO Palpitations, NO dyspnea on exertion, NO orthopnea, NO paroxysmal nocturnal dyspnea, NO edema Respiratory: NO Shortness of Breath, NO Wheezing, NO Cough, NO Sputum, NO hemoptysis GI:NO appetite, NO nausea, NO vomiting, NO dysphagia, NO changes in bowel frequency, NO stool color, NO diarrhea, NO constipation, NO hemetemesis, NO hemorrhoids, NO melena, NO hematechezia, NO abdominal pain, NO jaundice Renal: NO frequency, NO hesitancy, NO urgency, NO hematuria, NO nocturia, NO incontinence MSK: NO muscle weakness, NO gout, NO arthritis, NO muscle stiffness Neuro: NO headaches, NO tremors, NO weakness, NO paralysis, YES hx seizures, NO loss of consciousness, NO numbness. Hem: NO anemia, NO easy bruising/bleeding, NO petechiae, NO purpura Endo: NO heat/cold intolerance, NO excessive sweating, NO polyuria, NO polydipsia, NO polyphagia, NO thyroid problems, Yes diabetes Pysch: NO mood, NO anxiety, NO depression Exam Vital Signs Temp Pulse Resp BP Pulse Ox O2 Del Method 97.5 F 91 17 146/96 H 95 Room Air 12/22/24 20:00 12/22/24 20:00 12/22/24 20:00 12/22/24 20:00 12/22/24 20:00 12/22/24 20:00 Narrative Exam General Appearance: Alert & Oriented X3, well-nourished female who is lying in bed in no acute distress HEENT: Skull symmetrical and atraumatic. Conjunctivae pin and moist. Pupils equal, round, reactive to light and accommodation (PERRL). External ear without lesion or discharge. Cardio: Normal Rate and Rhythm with S1 and S2 heart sounds. No murmurs or extra heart sounds auscultated. No bruits on carotid auscultation. No peripheral edema or cyanosis. Lungs: Symmetric with good expansion. Chest and back non-tender. Breath sounds vesicular without crackles, wheezing or rhonchi Abdomen: Non-tender, Non-distended, Normal Reactive Bowel Sounds Neuro: Alert, cooperative, oriented to person, place, and time. Speech clear. CN grossly intact. Upper motor strength 5/5 and Lower motor strength 5/5. Sensation intact. Results Labs 12/23/24 04:55 12/23/24 04:55 Labs: Short CBC 12/22/24 Range/Units 04:44 WBC 10.5 (3.6-11.0) Thou/mm3 Hgb 9.5 L (12.0-16.0) g/dL Hct 30.4 L (36.0-46.0) % Plt Count 357 (140-440) Thou/mm3 BMP 12/22/24 04:44 Sodium 136 Potassium 5.9 H D Chloride 98 Carbon Dioxide 22.8 BUN 62 H Creatinine 8.1 H* D Glucose 145 H Calcium 8.9 Liver Function 12/22/24 Range/Units 04:44 Total Bilirubin 0.2 L (0.3-1.2) mg/dL AST < 8 (0-34) U/L ALT < 7 L (10-49) U/L Alkaline Phosphatase 91 (46-116) U/L Albumin 3.5 (3.5-5.0) gm/dL Quality Measures Quality Measures VTE prophylaxis Medications Home Medications and Allergies Home Medications ?Medication ?Instructions ?Recorded ?Confirmed ?Type amlodipine 5 mg tablet 10 mg PO DAILY 05/18/24 12/21/24 History sevelamer carbonate 2.4 gram oral 2.4 g PO TID 11/17/24 12/21/24 History powder packet tramadol 50 mg tablet 50 mg PO Q6H PRN pain 11/17/24 12/21/24 History albuterol sulfate 90 mcg/actuation 2 puff inhalation .4-6 hours PRN 11/27/24 12/21/24 History aerosol inhaler shortness of breath or wheezing cyclobenzaprine 10 mg tablet 10 mg PO DAILY PRN muscle spasm 11/27/24 12/21/24 History hydrocodone 5 mg-acetaminophen 325 1 tab PO TID PRN pain 11/27/24 12/21/24 History mg tablet ondansetron 4 mg disintegrating 4 mg PO Q8H PRN nausea and vomiting 11/27/24 12/21/24 History tablet Allergies Allergy/AdvReac Type Severity Reaction Status Date / Time amoxicillin (From Augmentin) Allergy Severe Swelling Verified 12/20/24 10:58 of Lip/Tongue/Throat clavulanic acid (From Allergy Severe Swelling Verified 12/20/24 10:58 Augmentin) of Lip/Tongue/Throat mushroom AdvReac Intermediate Nausea Verified 12/20/24 10:58 Visit Medications Acetaminophen (Acetaminophen 325 Mg Tablet) 650 mg PO Q6H PRN PRN Reason: Fever >100.5 or pain 1-3 Stop: 01/19/25 15:13 Last Admin: 12/22/24 20:55 Dose: 650 mg Hydrocodone Bitart/Acetaminophen (Hydrocodone/Apap 10/325 Tab) 1 tab PO Q6HR PRN PRN Reason: PAIN SCALE 4-10(Mod-Sev Stop: 12/27/24 15:07 Last Admin: 12/22/24 17:51 Dose: 1 tab Albuterol/Ipratropium (Albuterol/Ipratropium (Duoneb) Rt Maggie 3 Ml Nebu) 3 ml INH Q4HR PRN PRN Reason: SHORTNESS OF BREATH OR WHEEZE Stop: 01/19/25 15:24 Amlodipine Besylate (Amlodipine Besylate 5 Mg Tablet) 10 mg PO QDAY [facility] Stop: 01/19/25 15:29 Last Admin: 12/22/24 08:49 Dose: 10 mg Cyclobenzaprine HCl (Cyclobenzaprine 5 Mg Tablet) 10 mg PO DAILY PRN PRN Reason: muscle spasm Last Admin: 12/22/24 20:00 Dose: 10 mg Dextrose (Dextrose 50%-Water Inj 50 Ml Syringe) 25 ml IV Q15MIN PRN PRN Reason: BG 50-70 responsive npo pt Stop: 01/19/25 15:19 Last Admin: 12/20/24 18:27 Dose: 25 ml Dextrose (Dextrose 50%-Water Inj 50 Ml Syringe) 50 ml IV Q15MIN PRN PRN Reason: BG <50 OR BG <70 & pt unresponsive Stop: 01/19/25 15:19 Glucagon (Glucagon Inj 1 Mg Vial) 1 mg IM Q15MIN PRN PRN Reason: BG <70, and no IV access Heparin Sodium (Porcine) (Heparin Sod Inj 5000 Unit/Ml Vial) 5,000 unit SC Q12HR NASREEN Stop: 01/03/25 20:59 Last Admin: 12/22/24 20:01 Dose: 5,000 unit Ceftriaxone Sodium 2 gm/ (Sodium Chloride) 50 mls @ 100 mls/hr IV QDAY [facility] Stop: 12/27/24 15:27 Last Admin: 12/22/24 08:49 Dose: 100 mls/hr Albumin Human (Albuminar-25 Ivpb) 25 gm in 100 mls @ 100 mls/min IV PRN PRN PRN Reason: DIALYSIS Last Admin: 12/22/24 11:48 Dose: 100 mls/min Insulin Human Lispro (Insulin Lispro (Admelog) 1 Unit/0.01 Ml Unit) 0 unit SC AC NASREEN; Protocol Stop: 01/19/25 16:59 Last Admin: 12/22/24 16:46 Dose: 4 unit Levetiracetam (Levetiracetam 250 Mg Tablet) 500 mg PO BID [facility] Stop: 01/21/25 20:59 Last Admin: 12/22/24 20:53 Dose: 500 mg Ondansetron HCl (Ondansetron Inj 2 Mg/Ml Inj 2 Ml) 4 mg IVP Q6H PRN; Protocol PRN Reason: NAUSEA OR VOMITING Stop: 01/19/25 15:13 Pantoprazole Sodium (Pantoprazole 40 Mg Tablet) 40 mg PO QDAY NASRE[facility]; Protocol Stop: 01/21/25 08:59 Last Admin: 12/22/24 08:48 Dose: 40 mg Pharmacy Consult (Vancomycin Pharmacy To Dose 1 Each Each) 1 each IV QDAY PRN PRN Reason: PROTOCOL Stop: 01/19/25 15:29 Sennosides (Senna Tablet) 1 tab PO QDAY PRN; Protocol PRN Reason: constipation Stop: 01/19/25 15:13 Sevelamer Carbonate (Sevelamer Carbonate 2.4 Gm Packet (Non-Formulary)) 2.4 gm PO TIDWM [facility]RE[facility] Stop: 01/21/25 11:59 Last Admin: 12/22/24 16:47 Dose: 2.4 gm Discontinued Medications Acetaminophen (Acetaminophen 325 Mg Tablet) 650 mg PO Q6H PRN PRN Reason: Fever >100.5 or pain Stop: 01/19/25 15:13 Hydrocodone Bitart/Acetaminophen (Hydrocodone/Apap 5/325 Tablet) 1 tab PO TID PRN PRN Reason: pain Stop: 12/26/24 07:32 Hydrocodone Bitart/Acetaminophen (Hydrocodone/Apap 5/325 Tablet) 1 tab PO TID PRN PRN Reason: PAIN SCALE 4-10(Mod-Sev Stop: 12/26/24 07:32 Last Admin: 12/22/24 12:24 Dose: 1 tab Calcium Gluconate (Calcium Gluconate 10% Inj 1 Gm/10 Ml Vial) 1 gm IV X1 ONE Stop: 12/20/24 12:40 Last Admin: 12/20/24 12:50 Dose: 1 gm Dextrose (Dextrose 50%-Water Inj 50 Ml Syringe) 50 ml IVP X1 ONE Stop: 12/20/24 11:02 Last Admin: 12/20/24 11:04 Dose: 50 ml Epoetin Dago (Epoetin Dago-Epbx Inj 10,000 Unit/Ml Vial (Esrd)) 10,000 unit IV X1 ONE Stop: 12/22/24 11:01 Last Admin: 12/22/24 11:52 Dose: 10,000 unit Hydromorphone HCl (Hydromorphone Inj 2 Mg/Ml Vial) 0.5 mg IVP X1 ONE Stop: 12/20/24 11:38 Last Admin: 12/20/24 11:56 Dose: 0.5 mg Hydromorphone HCl (Hydromorphone Inj 2 Mg/Ml Vial) 0.5 mg IVP X1 ONE Stop: 12/20/24 23:25 Last Admin: 12/20/24 23:32 Dose: 0.5 mg Hydromorphone HCl (Hydromorphone Inj 2 Mg/Ml Vial) 1 mg IVP X1 ONE Stop: 12/21/24 02:11 Last Admin: 12/21/24 02:21 Dose: 1 mg Hydromorphone HCl (Hydromorphone Inj 2 Mg/Ml Vial) 0.5 mg IVP X1 ONE Stop: 12/21/24 19:58 Last Admin: 12/21/24 20:07 Dose: 0.5 mg Hydromorphone HCl (Hydromorphone Inj 2 Mg/Ml Vial) 0.25 mg IVP X1 ONE Stop: 12/22/24 08:17 Last Admin: 12/22/24 08:42 Dose: 0.25 mg Ceftriaxone Sodium/Dextrose (Rocephin/D5w 1gm Iv Premix) 1 gm in 50 mls @ 100 mls/hr IV X1 ONE Stop: 12/20/24 12:47 Last Admin: 12/20/24 12:18 Dose: Not Given Vancomycin HCl (Vancomycin/Water 1250 Mg Ivpb) 250 mls @ 120 mls/hr IV X1 ONE Stop: 12/20/24 14:34 Last Infusion: 12/20/24 21:15 Dose: Infused Pantoprazole Sodium (Pantoprazole Inj 40 Mg Vial) 40 mg IVP QDAY [facility] Stop: 01/20/25 08:59 Last Admin: 12/21/24 08:22 Dose: 40 mg Pharmacy Consult (Vancomycin Pharmacy To Dose 1 Each Each) 1 each IV X1 ONE Stop: 12/20/24 12:19 Last Admin: 12/20/24 19:24 Dose: Not Given Sevelamer Carbonate (Sevelamer Carbonate 800 Mg Tablet) 2,400 mg PO TIDWM [facility] Stop: 01/20/25 07:59 Last Admin: 12/21/24 08:30 Dose: Not Given Sevelamer Carbonate (Sevelamer Carbonate 2.4 Gm Packet (Non-Formulary)) 2.4 gm PO TIDWM [facility] Stop: 01/20/25 11:59 Sevelamer Carbonate (Sevelamer Carbonate 0.8 Gm Packet (Non-Formulary)) 2.4 gm PO TIDWM [facility] Stop: 01/20/25 11:59 Last Admin: 12/22/24 08:52 Dose: 2.4 gm Assessment & Plan Plan Patient is a 44 year old female with a past medical history of HTN, HLD, Diabetes Mellitus Type 2 insulin dependent, S/p left leg NOEMY (2020), ESRD on HD (M/W/F) w/ AV fistula secondary, history of seizures, and recent admission for discitis w/ abscess from C5-C6 with PICC line added during previous admission to complete antibiotics until 12/30/2024 who was admitted for acute metabolic encephalopathy. #Seizure Patient has a past medical history of seizure and had terminated medication on her own. Family history of Seizure. Can not recall which anti-seizure medication has worker for her in the past or her family. Plan -Keppra 500 mg PO BID -monitor electrolytes w/ caution as history of ESRD -Follow outpatient with neurology #C5-C6 discitis w/ abscess s/p PICC line #Leukocytotis #Acute Encephaloapthy, likely multi-factorial and seizure #ESRD on HD #electrolyte imbalcne #Diabetes Mellitus Type 2, insulin depedent #HTN #HLD #history of s/p left leg AKA, 2020 #Normocytic Anemia - The patient's plan was discussed with attending Dr. Richard Carpio MD PGY2 Internal Medicine Attending Provider Attestation/Addendum I personally have seen and examined the patient at the bedside and agreed with resident's findings, assessment and plan of care. Impression: Seizure disorder with abnormal EEG End-stage renal disease on maintenance dialysis Hypertension Diabetes mellitus type Hyperparathyroidism Plan/recommendations: As the EEG was abnormal, continue with the Keppra 500 mg twice a day with close monitoring for breakthrough seizures. Follow-up as an outpatient upon discharge in 2 weeks
[2024-12-22] MEDS: ACETAMINOPHEN 325 MG TABLET 650 MG PO (20:55)
--- NOTE | 2024-12-22 21:29 | PC.NURSE ---
Pt is crying complaining of pain on her neck, Parkman is not due yet and Tylenol was given 30 mins ago, MD Silverman made aware that pt is asking for a stronger pain meds, per MD he cant give any IV pain meds, just continue with Parkman as prescribed.
[2024-12-23] VITALS (9 sets, daily range): BP systolic 136–158; BP diastolic 79–96; PULSE 87–95; RESP 17–96; TEMP 36.1–36.9; O2SAT 94–96; BMI 25.9
[2024-12-23 05:58] LABS: Basophils # (Auto) 0.1 Thou/mm3 (0.0-0.2); Basophils % (Auto) 1 % (0-2.5); Eosinophils # (Auto) 0.3 Thou/mm3 (0.0-0.5); Eosinophils % (Auto) 3 % (0-10); Hematocrit 33.1 % (36.0-46.0); Hemoglobin 10.2 g/dL (12.0-16.0); Immature Granulocytes Auto 0.12 Thou/mm3 (0.00-0.00); Lymphocytes # (Auto) 3.8 Thou/mm3 (1.0-4.8); Lymphocytes % (Auto) 35 % (10-50); Mean Corpuscular HGB Conc 30.8 g/dl (31.0-37.0); Mean Corpuscular Hemoglobin 25.8 pg (25.0-35.0); Mean Corpuscular Volume 84 fL (80-100); Monocytes # (Auto) 0.9 Thou/mm3 (0.0-0.8); Monocytes % (Auto) 9 % (0-12); Neutrophils # (Auto) 5.6 Thou/mm3 (1.8-7.7); Neutrophils % (Auto) 52 % (37-80); Nucleated Red Blood Cell # 0.00 Thou/mm3 (0.00-0.00); Nucleated Red Blood Cell % 0 /100 WBC (0); Platelet Count 376 Thou/mm3 (140-440); RDW Standard Deviation 55.2 fL (36.4-46.3); Red Blood Count 3.96 Miln/mm3 (4.00-5.20); White Blood Count 10.8 Thou/mm3 (3.6-11.0)
[2024-12-23 06:15] LABS: Influenza A Ag Negative; Influenza B Ag Negative
[2024-12-23 06:40] LABS: Alanine Aminotransferase < 7 U/L (10-49); Albumin, Serum 3.7 gm/dL (3.5-5.0); Albumin/Globulin Ratio 1.4 (1.2-2.2); Alkaline Phosphatase 99 U/L (46-116); Anion Gap 13 (7-16); Aspartate Amino Transferase < 10 U/L (0-34); BUN/Creatinine Ratio 7 Ratio (12-20); Bilirubin,Total 0.4 mg/dL (0.3-1.2); Blood Urea Nitrogen 42 mg/dL (9-23); Calcium 9.4 mg/dL (8.3-10.6); Calcium (Corrected) 9.6 mg/dL (8.5-10.1); Carbon Dioxide 27.3 mMol/L (20.0-31.0); Chloride 98 mMol/L (98-107); Creatinine (Component) 6.0 mg/dL (0.6-1.3); Estimated Creatinine Clearance 10.0 mL/min (>60); Globulin 2.6 gm/dL (2.3-3.5); Glucose 190 mg/dL (74-106); Magnesium 1.7 mg/dL (1.6-2.6); Osmolality,Calculated 291 (275-295); Phosphorous 5.6 mg/dL (2.4-5.1); Potassium 5.2 mMol/L (3.4-5.1); Sodium 138 mMol/L (136-145); Total Protein 6.3 gm/dL (5.7-8.2); Vancomycin,Random 17.6 mcg/mL; eGFR 8 See Note
[2024-12-23] MEDS: SEVELAMER CARBONATE 2.4 GM PO ×2 (07:49→12:00)
[2024-12-23] MEDS: INSULIN LISPRO (AdmeLOG) 1 UNIT/0.01 ML UNIT SC (07:49)
[2024-12-23] MEDS: cefTRIAXone 2 GM in SODIUM CHLORIDE 0.9% (Popper) 50 ML IV (10:10)
[2024-12-23] MEDS: HEPARIN SOD INJ 5000 UNIT/ML VIAL SC (10:10)
[2024-12-23] MEDS: PANTOPRAZOLE 40 MG TABLET PO (10:11)
[2024-12-23] MEDS: PATIROMER CALCIUM 8.4 GM PACKET PO (10:14)
[2024-12-23] MEDS: VANCOMYCIN/NS 500 MG IVPB 100 ML 120 MG IV (10:32)
--- NOTE | 2024-12-23 12:19 | PC.SS ---
SS has setup gurney transportation with Tasha from [facility] for 3pm .? Ref# [id number].? SS has requested [facility].? Per [facility] rental sales representative,she will notate [facility] is requested but not guaranteed.? Estimated time is 3-4 hours.? SS has sent patient?s facesheet and ambulance form to [facility] using [facility].? SS has spoken to at [facility] who has placed pt on will call list until she has been contacted by [facility]. Pt is aware. Dimitrios from [facility] is aware. Bedside nurseYajaira is aware. Rosalinda MALIK is awre. has provided bedside nurseYajaira with phone# to give report [phone]. SS has sent d/c orders to [facility] using [employer] upon their request.
--- NOTE | 2024-12-23 13:02 | ESPR_ITS ---
Documentation for date of: 12/23/24 Subjective Subjective Interval history: A 44F PMH of ESRD on HD (MWF, however noncompliant) through AV fistula placed on 10/20/2024, recently diagnosed C5-C6 discitis with abscess on ceftriaxone 2 g and vancomycin daily through PICC line, IDDM2 s/p L AKA, polysubstance use, and history of seizures (not on any antiseizure medications) who presents with altered mental status. On interview patient is somnolent and unable to provide history. Per sister Gisella, patient has been living with a friend and was called today because patient was home lying unconscious in her feces. Pt is seen and examined pt had dialysis yesterday Exam Vital Signs Temp Pulse Resp BP Pulse Ox O2 Del Method 97.0 F 93 18 136/96 H 96 Room Air 12/23/24 11:10 12/23/24 11:37 12/23/24 11:37 12/23/24 11:10 12/23/24 11:37 12/23/24 11:10 Narrative Exam GENERAL: no acute distress HEENT: NC/AT, mucous membranes dry, bilateral sclera anicteric CARDIOVASCULAR: regular rate and rhythm, S1/S2 present, no murmurs appreciated PULMONARY: clear to auscultation bilaterally, no rales/rhonchi/wheezes ABDOMINAL: soft, non-tender, non-distended, no rebound/guarding, bowel sounds present EXTREMITIES: no peripheral edema, +L AKA SKIN: warm and dry, intact, no rashes NEURO: CN II-XII grossly intact Objective Labs 12/23/24 04:55 12/23/24 04:55 Labs: Laboratory Results - last 24 hr 12/21/24 12/23/24 00:35 04:55 WBC 10.8 RBC 3.96 L Hgb 10.2 L Hct 33.1 L MCV 84 MCH 25.8 MCHC 30.8 L RDW Std Deviation 55.2 H Plt Count 376 Neut % (Auto) 52 Lymph % (Auto) 35 [place] % (Auto) 9 Eos % (Auto) 3 Baso % (Auto) 1 Neut # (Auto) 5.6 Lymph # (Auto) 3.8 [place] # (Auto) 0.9 H Eos # (Auto) 0.3 Baso # (Auto) 0.1 Immature Gran # (Auto) 0.12 H Absolute Nucleated RBC 0.00 Immature Gran % 1 H Nucleated RBC % 0 Sodium 138 Potassium 5.2 H D Chloride 98 Carbon Dioxide 27.3 Anion Gap 13 BUN 42 H Creatinine 6.0 H* D Estim Creat Clear Calc 10.0 L eGFR 8 L* BUN/Creatinine Ratio 7 L Glucose 190 H Calculated Osmolality 291 Calcium 9.4 Corrected Calcium 9.6 Phosphorus 5.6 H Magnesium 1.7 Total Bilirubin 0.4 AST < 10 ALT < 7 L Alkaline Phosphatase 99 Total Protein 6.3 Albumin 3.7 Globulin 2.6 Albumin/Globulin Ratio 1.4 Random Vancomycin 17.6 Influenza A (Rapid) Negative Influenza B (Rapid) Negative Assessment & Plan Assessment and plan (1) Acute encephalopathy: Status: Acute (2) ESRD on dialysis: Status: Acute Assessment and plan: Pt had dialysis yesterday c/w dialysis 3 times a week Agree with Jonny for mild hyperkalemia (3) ESRD (end stage renal disease): Status: Acute
--- NOTE | 2024-12-23 13:15 | CHAP ---
Patient was visited by the Spiritual Care Volunteer who prayed for them. (Volunteer was in the hospital from 10:15-13:15).
--- NOTE | 2024-12-23 14:22 | ESDS_ITS ---
<Statement entered by Arielle Orosco MD - 12/24/24 10:44> Patient was seen and examined by me personally. I have reviewed the below documentation by the team resident and agree with its findings. Discharge plan was discussed with the attending, Dr. Melinda Callaway MD 44-year-old noncompliant female with past medical history of ESRD on hemodialysis MWF follows Dr. Livingston, recently diagnosed C5-C6 discitis with abscess, insulin-dependent diabetes mellitus type 2, polysubstance use and history of ?Seizures admitted to [facility] telemetry for significant hyperkalemia, uremia and fluid overload status causing acute encephalopathy for further workup. Infectious disease was consulted for antibiotic recommendations as patient has been noncompliant with antibiotics outpatient recommended vancomycin with hemodialysis until February 10, 2025, EEG during hospitalization showed seizure-like activity, neurology consulted patient started on Keppra per neurology recommendations, patient to follow-up with neurology outpatient. Otherwise noted to have refractory hyperkalemia will be discharged on patiromer, was cleared by nephrology for discharge. Patient will be discharged to longterm facility per physical therapy recommendations, stable for discharge responded well to hospital treatment. Arielle Orosco MD Internal Medicine, PGY-2 Planned Discharge Date 12/23/24 DS: Providers Provider Date of admission: 12/20/24 15:20 Primary care physician: Khadijah Veronica PA-C Admitting Provider: Lian Daniel MD Attending Provider on Admission: Melinda Callaway MD Consults: 12/20/24 11:24 Consult to Nephrology Stat Comment: Consulting Provider: Bala Livingston 12/21/24 05:43 Referral Wound Care Routine Comment: 12/21/24 05:44 Referral Nutritional Services Routine Comment: 12/21/24 08:35 Referral Physical Therapy Urgent Comment: Physician Instructions: 12/21/24 08:45 Consult to Infectious Diseases Routine Comment: discitis abx recs Consulting Provider: Billy Yuan 12/22/24 15:06 Consult to Neurology / Tele-Neurology Urgent Comment: EEG positive for Seizures Consulting Provider: Israel Ramos Attending Provider on DC: Melinda Callaway MD Discharging Provider: Melinda Callaway MD DS: Diagnosis Problem List Completed Was Problem List Reviewed/Reconciled?: Yes Hospital Course Hospital Course Hospital course: Summary: Jo Bajwa is a 44F pmhx significant for ESRD on HD (MWF, however noncompliant) through AV fistula placed on 10/20/2024, recently diagnosed C5-C6 discitis with abscess on ceftriaxone 2 g and vancomycin daily through PICC line, IDDM2 s/p L AKA, polysubstance use, and history of seizures (not on any antiseizure medications) who presents with altered mental status admitted for likely metabolic encephalopathy and for urgent HD. On admission, patient received hemodialysis with resolution of altered mental status. Neurology was consulted due to history of seizures, EEG performed showed seizure-like activity patient was started on seizure medication. Patient was also further treated with antibiotics for C5 to C6 discitis with abscess, infectious disease physician consulted and recommended extended treatment with only vancomycin 1 g with hemodialysis until 02/10/2025. Patient will be discharged to short-term SNF. On discharge, patient is hemodynamically stable, vitals and labs reviewed stable patient is feeling back to baseline. Imaging: EEG showed multifocal spike and wave discharges indicating seizure activity. Discharge Recommendations: - Please take all medications as prescribed - Continue Vancomycin 1g with dialysis until 02/10/2025 - Take Tresiba 5 units daily and Januvia 25mg daily for Diabetes Management. - Take Veltassa daily for hyperkalemia, continue dialysis outpatient - Continue Keppra twice a day for seizures follow up with neurology outpatien - Continue all other home medications - Please follow up with your PCP within one week of discharge - If your symptoms worsen, please seek immediate medical attention and return to your nearest emergency room. - If you do not have a PCP, you may follow up at the [facility] at [address] [place] [address] [address] [id number], Hospital Diagnoses: #Acute encephalopathy resolved, likely metabolic #ESRD on HD (MWF) #Hyperkalemia, resolved #HAGMA, resolved #Uremia, improved #C5-C6 discitis with abscess, on abx #Leukocytosis, resolved #Hx of osteomyelitis s/p L AKA #IDDM2 #Hypoglycemia, resolved #Hyperglycemia #HTN #[facility] [facility] Arianna Jones, DO Internal Medicine, PGY-1 Status at Discharge Cognitive/behavioral status at discharge: Stable Functional status at discharge: wheelchair bound Overall status at discharge: patient is back to baseline Time Spent with Patient Time attestation: Total time spent providing and/or coordinating discharge services: 33 min Time spent: Greater than 30 minutes Exam Vital Signs Temp Pulse Resp BP Pulse Ox O2 Del Method 97.0 F 87 18 136/96 H 96 Room Air 12/23/24 11:10 12/23/24 12:00 12/23/24 11:37 12/23/24 11:10 12/23/24 11:37 12/23/24 11:10 Narrative Exam ENERAL: alert, oriented AOx4, well nourished HEENT: NC/AT, mucous membranes moist, bilateral sclera anicteric, +R pupil cloudy CARDIOVASCULAR: regular rate and rhythm, S1/S2 present, no murmurs appreciated PULMONARY: clear to auscultation bilaterally, no rales/rhonchi/wheezes ABDOMINAL: soft, non-tender, non-distended, no rebound/guarding, bowel sounds present EXTREMITIES: no peripheral edema, +R peripheral IV, +L AV fistula with palpable thrill, +L AKA, +R heel superficial wound approximately 2x2 inches SKIN: warm and dry, intact except for wound as above NEURO: CN II-XII grossly intact Discharge Plan Plan Patient Disposition: Xfer Skilled Nsg Fac (SNF) Patient condition on transfer: Stable Care Plan Goals: -Continue Vancomycin 1g with Dialysis till 02/10/2025 -Take Tresiba 5 units daily and Januvia 25mg daily for Diabetes Management. -Take Veltassa daily for hyperkalemia, continue dialysis outpatient -Continue other medications as below. -Continue Keppra twice a day for seizures follow up with neurology outpatient. -Follow up with retail support specialist outpatient. -Return to ED if symptoms worsen. -Follow up with PCP. Prescriptions/Referrals Prescriptions/Med Rec: New levetiracetam 500 mg tablet 500 mg PO BID 30 Days Qty: 60 0RF Veltassa 8.4 gram Powder In Packet 8.4 g PO QDAY 30 Days Qty: 30 0RF Januvia 25 mg tablet 25 mg PO QDAY Qty: 30 0RF insulin degludec [Tresiba FlexTouch U-100] 100 unit/mL (3 mL) insulin pen 5 unit subcut QDAY Qty: 15 0RF vancomycin 1,000 mg recon soln See Rx Instructions .ROUTE .COMPLEX Qty: 10 0RF Rx Instructions: vancomycin with dialysis until 02/10/2025 Continued amlodipine 5 mg tablet 10 mg PO DAILY Patient Comments: TAKE 1 TABLET BY MOUTH DAILY FOR BLOOD PRESSURE hydrocodone-acetaminophen 5-325 mg tablet 1 tab PO TID PRN (Reason: pain) Patient Comments: TAKE 1 TABLET BY MOUTH 3 TIMES A DAY NEEDED FOR PAIN ondansetron 4 mg tablet,disintegrating 4 mg PO Q8H PRN (Reason: nausea and vomiting) Patient Comments: DISSOLVE 1 TABLET ON TONGUE EVERY 8 HOURS NEEDED FOR NAUSEA AND VOMITING Rx Instructions: sublingual cyclobenzaprine 10 mg tablet 10 mg PO DAILY PRN (Reason: muscle spasm) albuterol sulfate 90 mcg/actuation HFA aerosol inhaler 2 puff INHALATION .4-6 hours PRN (Reason: shortness of breath or wheezing) Patient Comments: USE ONE TO TWO INHALATIONS BY MOUTH EVERY 4-6 HOURS NEEDED FOR ASTHMA tramadol 50 mg tablet 50 mg PO Q6H PRN (Reason: pain) Patient Comments: TAKE 1 TABLET BY MOUTH EVERY 6 TO 8 HOURS NEEDED FOR PAIN FOR 10 DAYS sevelamer carbonate 2.4 gram powder in packet 2.4 g PO TID Patient Comments: TAKE 1 PACKET BY MOUTH 3 TIMES A DAY Discontinued insulin glargine [Basaglar KwikPen U-100 Insulin] 100 unit/mL (3 mL) insulin pen 38 unit subcut QAM Novolin R Regular U100 Insulin 100 unit/mL solution 1 sliding scale dose subcut TIDWM Patient Comments: USE UP TO 30 UNITS MAX/ DAY PER SLIDING SCALE 3 TIMES A DAY Referrals: Israel Ramos MD [Physician] - Khadijah Veronica PA-C [Primary Care Provider] - Patient/Caregiver Discharge Instructions Discharge Activity: activity as tolerated Education Materials: Hemodialysis, ED Seizure New Onset Unk Cause Ch Print Language: Bolivian Stand Alone Forms: Hannah Award Info., Patient Portal Info Letter Discharge Order Discharge Orders: Discharge (Routine); Ordered 12/23/24 Ordered By: Arielle Orosco Quality Discharge Quality Measures VTE prophylaxis Attestestation Attestation I attest that I was physically present for the evaluation, physical examination, lab and imaging review of the patient with the residents. I discussed the case with the residents and agree with the findings and plans of care as documented above. Melinda Callaway MD
--- NOTE | 2024-12-23 14:27 | PD.RESPRO ---
Documentation for date of: 12/23/24 Subjective Subjective Interval history: 12/23/2024: No overnight events. Patient stated she felt improvement with Keppra. Denied any side effects. NO seizure activirty reported. Continue Keppra as outpatient. Exam Vital Signs Temp Pulse Resp BP Pulse Ox O2 Del Method 97.0 F 87 18 136/96 H 96 Room Air 12/23/24 11:10 12/23/24 12:00 12/23/24 11:37 12/23/24 11:10 12/23/24 11:37 12/23/24 11:10 Narrative Exam General Appearance: Alert & Oriented X3, well-nourished female who is lying in bed in no acute distress HEENT: Skull symmetrical and atraumatic. Conjunctivae pin and moist. Pupils equal, round, reactive to light and accommodation (PERRL). External ear without lesion or discharge. Cardio: Normal Rate and Rhythm with S1 and S2 heart sounds. No murmurs or extra heart sounds auscultated. No bruits on carotid auscultation. No peripheral edema or cyanosis. Lungs: Symmetric with good expansion. Chest and back non-tender. Breath sounds vesicular without crackles, wheezing or rhonchi Abdomen: Non-tender, Non-distended, Normal Reactive Bowel Sounds Neuro: Alert, cooperative, oriented to person, place, and time. Speech clear. CN grossly intact. Upper motor strength 5/5 and Lower motor strength 5/5. Sensation intact. Objective Labs 12/23/24 04:55 12/23/24 04:55 Labs: Laboratory Results - last 24 hr 12/21/24 12/23/24 00:35 04:55 WBC 10.8 RBC 3.96 L Hgb 10.2 L Hct 33.1 L MCV 84 MCH 25.8 MCHC 30.8 L RDW Std Deviation 55.2 H Plt Count 376 Neut % (Auto) 52 Lymph % (Auto) 35 Hamilton % (Auto) 9 Eos % (Auto) 3 Baso % (Auto) 1 Neut # (Auto) 5.6 Lymph # (Auto) 3.8 Hamilton # (Auto) 0.9 H Eos # (Auto) 0.3 Baso # (Auto) 0.1 Immature Gran # (Auto) 0.12 H Absolute Nucleated RBC 0.00 Immature Gran % 1 H Nucleated RBC % 0 Sodium 138 Potassium 5.2 H D Chloride 98 Carbon Dioxide 27.3 Anion Gap 13 BUN 42 H Creatinine 6.0 H* D Estim Creat Clear Calc 10.0 L eGFR 8 L* BUN/Creatinine Ratio 7 L Glucose 190 H Calculated Osmolality 291 Calcium 9.4 Corrected Calcium 9.6 Phosphorus 5.6 H Magnesium 1.7 Total Bilirubin 0.4 AST < 10 ALT < 7 L Alkaline Phosphatase 99 Total Protein 6.3 Albumin 3.7 Globulin 2.6 Albumin/Globulin Ratio 1.4 Random Vancomycin 17.6 Influenza A (Rapid) Negative Influenza B (Rapid) Negative Quality Measures Quality Measures VTE prophylaxis Assessment & Plan Assessment Current Active Medications: Generic Name Dose Route Start Last Admin Trade Name Freq PRN Reason Stop Dose Admin Acetaminophen 650 mg 12/21/24 07:46 12/22/24 20:55 Acetaminophen 325 Mg Tablet PO 01/19/25 15:13 650 mg Q6H PRN Administration Fever >100.5 or pain 1-3 Hydrocodone Bitart/Acetaminophen 1 tab 12/22/24 15:08 12/23/24 07:50 Hydrocodone/Apap 10/325 Tab PO 12/27/24 15:07 1 tab Q6HR PRN Administration PAIN SCALE 4-10(Mod-Sev Albuterol/Ipratropium 3 ml 12/20/24 15:25 Albuterol/Ipratropium (Duoneb) Rt Maggie 3 Ml Nebu INH 01/19/25 15:24 Q4HR PRN SHORTNESS OF BREATH OR WHEEZE Amlodipine Besylate 10 mg 12/20/24 15:30 12/23/24 10:11 Amlodipine Besylate 5 Mg Tablet PO 01/19/25 15:29 10 mg QDAY NASREEN Administration Cyclobenzaprine HCl 10 mg 12/21/24 07:33 12/22/24 20:00 Cyclobenzaprine 5 Mg Tablet PO 10 mg DAILY PRN Administration muscle spasm Dextrose 25 ml 12/20/24 15:20 12/20/24 18:27 Dextrose 50%-Water Inj 50 Ml Syringe IV 01/19/25 15:19 25 ml Q15MIN PRN Administration BG 50-70 responsive npo pt Dextrose 50 ml 12/20/24 15:20 Dextrose 50%-Water Inj 50 Ml Syringe IV 01/19/25 15:19 Q15MIN PRN BG <50 OR BG <70 & pt unresponsive Glucagon 1 mg 12/20/24 15:20 Glucagon Inj 1 Mg Vial IM Q15MIN PRN BG <70, and no IV access Heparin Sodium (Porcine) 5,000 unit 12/20/24 21:00 12/23/24 10:10 Heparin Sod Inj 5000 Unit/Ml Vial SC 01/03/25 20:59 5,000 unit Q12HR NASREEN Administration Ceftriaxone Sodium 2 gm/ 50 mls @ 100 mls/hr 12/20/24 15:28 12/23/24 10:10 Sodium Chloride IV 12/27/24 15:27 100 mls/hr QDAY NASREEN Administration Albumin Human 25 gm in 100 mls @ 100 mls/min 12/22/24 09:26 12/22/24 11:48 Albuminar-25 Ivpb IV 100 mls/min PRN PRN Administration DIALYSIS Insulin Human Lispro 0 unit 12/20/24 17:00 12/23/24 12:00 Insulin Lispro (Admelog) 1 Unit/0.01 Ml Unit SC 01/19/25 16:59 Not Given AC NASREEN Protocol Levetiracetam 500 mg 12/22/24 21:00 12/23/24 10:11 Levetiracetam 250 Mg Tablet PO 01/21/25 20:59 500 mg BID NASREEN Administration Ondansetron HCl 4 mg 12/20/24 15:14 Ondansetron Inj 2 Mg/Ml Inj 2 Ml IVP 01/19/25 15:13 Q6H PRN NAUSEA OR VOMITING Protocol Pantoprazole Sodium 40 mg 12/22/24 09:00 12/23/24 10:11 Pantoprazole 40 Mg Tablet PO 01/21/25 08:59 40 mg QDAY NASREEN Administration Protocol Patiromer 8.4 gm 12/23/24 09:00 12/23/24 10:14 Patiromer Calcium 8.4 Gm Packet PO 12/30/24 08:59 8.4 gm QDAY NASREEN Administration Pharmacy Consult 1 each 12/20/24 15:30 Vancomycin Pharmacy To Dose 1 Each Each IV 01/19/25 15:29 QDAY PRN PROTOCOL Sennosides 1 tab 12/20/24 15:14 Senna Tablet PO 01/19/25 15:13 QDAY PRN constipation Protocol Sevelamer Carbonate 2.4 gm 12/22/24 12:00 12/23/24 12:00 Sevelamer Carbonate 2.4 Gm Packet (Non-Formulary) PO 01/21/25 11:59 2.4 gm TIDWM NASREEN Administration Plan Patient is a 44 year old female with a past medical history of HTN, HLD, Diabetes Mellitus Type 2 insulin dependent, S/p left leg NOEMY (2020), ESRD on HD (M/W/F) w/ AV fistula secondary, history of seizures, and recent admission for discitis w/ abscess from C5-C6 with PICC line added during previous admission to complete antibiotics until 12/30/2024 who was admitted for acute metabolic encephalopathy. #Seizure Patient has a past medical history of seizure and had terminated medication on her own. Family history of Seizure. Can not recall which anti-seizure medication has worker for her in the past or her family. Plan -Keppra 500 mg PO BID -monitor electrolytes w/ caution as history of ESRD -Follow outpatient with neurology #C5-C6 discitis w/ abscess s/p PICC line #Leukocytotis #Acute Encephaloapthy, likely multi-factorial and seizure #ESRD on HD #electrolyte imbalcne #Diabetes Mellitus Type 2, insulin depedent #HTN #HLD #history of s/p left leg AKA, 2020 #Normocytic Anemia - The patient's plan was discussed with attending Dr. Richard Carpio MD PGY2 Internal Medicine Attending Provider Attestation/Addendum I personally have seen and examined the patient at the bedside and agree with resident's findings, assessment and plan of care. Impression: Seizure disorder with recent breakthrough seizures End-stage renal disease on dialysis Hyperparathyroidism Diabetes mellitus type 2 Hypertension: Plan/recommendations: Continue with the Keppra 500 mg twice a day continue with home meds, follow-up with me in clinic in 2 weeks.
--- NOTE | 2024-12-23 15:19 | PC.SS ---
SS received call from Hanna at [facility] transportation has been set for 3pm but changed to 3:30. Per Hanna, [place] transportation has been set for 4:30. SS has informed Rosalinda MALIK. HARINI has sent message to Dimitrios from [facility] using [employer].
--- NOTE | 2024-12-24 11:12 | PC.CC ---
Addendum entered by Jesenia Vickers 12/24/24 11:20: 1119-ASW called [facility] and spoke with staff regarding the pt calling asking for her meds and staff stated they have already given the pt her meds and just waiting for it to kick in. Staff will talk to pt about calling the hosptial. Original Note: 1112- ASW receieved a call from the pt who is now at [facility] in [place]. Pt was emotional and crying stating she has not had her medications and it is important to her. Pt is asking for her medications. ASW explained that she is calling the hosptial and she said, I know, but I need my meds. ASW informed pt that aligner typewriter will call her SNF and inform them.
== END 2024-12-23 16:09 | disposition skilled nursing facility (03) | DRG 52 ==
LOC: SERX 14:04 → SERHOLD 15:58 → S2NX 22:25 → S3NX 12-21 15:34
PROVIDERS: PCP Physician Assistant; Visit Provider Student in an Organized Health Care Education/Training Program
DX: G93.41 Metabolic encephalopathy (principal); E11.22 Type 2 diabetes mellitus with diabetic chronic kidney disease; Z99.2 Dependence on renal dialysis; N18.6 End stage renal disease; I12.0 Hypertensive chronic kidney disease with stage 5 chronic kidney disease or end stage renal disease; F17.200 Nicotine dependence, unspecified, uncomplicated; F19.90 Other psychoactive substance use, unspecified, uncomplicated; Z89.612 Acquired absence of left leg above knee; E87.5 Hyperkalemia; D63.1 Anemia in chronic kidney disease; E87.20 Acidosis, unspecified; M46.42 Discitis, unspecified, cervical region; E78.5 Hyperlipidemia, unspecified; E11.65 Type 2 diabetes mellitus with hyperglycemia; E11.649 Type 2 diabetes mellitus with hypoglycemia without coma; G40.909 Epilepsy, unspecified, not intractable, without status epilepticus; E21.3 Hyperparathyroidism, unspecified; J45.909 Unspecified asthma, uncomplicated; W05.0XXA Fall from non-moving wheelchair, initial encounter; Z79.4 Long term (current) use of insulin; Z79.899 Other long term (current) drug therapy; Z91.158 Patient's noncompliance with renal dialysis for other reason; D72.829 Elevated white blood cell count, unspecified
CPT/HCPCS: 36415; 70450; 80053; 80069; 80202; 80307; 81001; 82140; 82550; 82607; 82746; 83605; 83735; 84100; 84145; 85025; 85652; 86140; 87040; 87081; 87086; 87502; 87811; 93005; 93225; 95816; 96365; 96366; 96372; 96375; 97162; 99284; J0612; J0696; J1171; J1644; J1815; J2470; J3372; J3373; J7050; P9047; Q5105; A9270